=== PATIENT | female | born 1970 | race Caucasian/White ===

== ENCOUNTER 2024-07-13 07:49 | Inpatient (IN) | payer OTHER, SELFPAY ==
[2024-07-13] VITALS (21 sets, daily range): BP systolic 93–155; BP diastolic 61–98; PULSE 66–136; RESP 15–24; TEMP 35.8–37.1; O2SAT 94–100; BMI 22.4; BMI 22.2
--- NOTE | 2024-07-13 08:04 | EKG12_ITS ---
Test Reason : Blood Pressure : */* mmHG Vent. Rate : 107 BPM Atrial Rate : 107 BPM P-R Int : 122 ms QRS Dur : 100 ms QT Int : 340 ms P-R-T Axes : 55 55 -32 degrees QTcB Int : 453 ms Sinus tachycardia with occasional Premature ventricular complexes Inferior-posterior infarct , age undetermined Abnormal ECG Confirmed by ANGELA ESPINOZA, WILLIE ([id number]), editor managing director DANIEL TOVAR ([id number]) on 07/14/2024 8:14:43 AM Referred By: VARINDER Confirmed By: WILLIE MILLER MD
--- NOTE | 2024-07-13 08:04 | CT_ITS ---
STUDY: CT BRAIN WITHOUT CONTRAST REASON FOR EXAM: Female, 54 years old. New onset seizure RADIATION DOSAGE (If Supplied By Facility): CTDIvol = ( 47.06 ) mGy, DLP = ( 907.97 ) mGycm TECHNIQUE: Transaxial CT imaging of the brain was performed without administration of intravenous contrast material. Individualized dose optimization techniques were used for this CT. COMPARISON: No relevant priors. FINDINGS: Normal soft tissue structures. Normal calvarium. Normal size ventricles and extra-axial spaces for the patient''s age. Normal white matter tracts of the cerebral hemispheres. Normal basal ganglia and thalami. Normal brainstem. Normal cerebellum. There is no intracranial hemorrhage. There are no findings of an acute ischemic infarction. Normal visualized paranasal sinuses. CT/Brain/Head without Contrast IMPRESSION: Normal unenhanced CT scan of the brain. Electronically Signed: Lj North MD at 9:45 EST ,
--- NOTE | 2024-07-13 08:12 | EKG12_ITS ---
Test Reason : Blood Pressure : */* mmHG Vent. Rate : 113 BPM Atrial Rate : 113 BPM P-R Int : 126 ms QRS Dur : 98 ms QT Int : 306 ms P-R-T Axes : 52 55 -27 degrees QTcB Int : 419 ms Sinus tachycardia Inferior-posterior infarct , age undetermined ST & T wave abnormality, consider lateral ischemia Abnormal ECG When compared with ECG of 15-May-2010 06:01, Vent. rate has increased by 58 bpm Inferior-posterior infarct is now Present ST now depressed in Anterior leads T wave inversion more evident in Inferior leads T wave inversion now evident in Anterolateral leads Confirmed by MANPREET PLEITEZ ([id number]), slot editor CARLTON DUNN ([id number]) on 07/16/2024 1:46:37 PM Referred By: Confirmed By: MANPREET PLEITEZ
[2024-07-13 08:46] LABS: Bacteria 0 SEEN /hpf (None Seen); Mucous, Urine 0 SEEN /hpf (<or=2+); Red Blood Cells-Urine 0 SEEN /hpf (0-5); Squamous Epithelial Cells - UA 0 SEEN /hpf (5-10); White Blood Cells 0 SEEN /hpf (0-5)
[2024-07-13 08:53] LABS: Absolute Lymphocyte Count 0.64 X10^3/uL (0.83-4.51); Absolute Neutrophil Count 9.3 X10^3/uL (2.0-7.7); Basophil# 0.06 X10^3/uL; Basophil% 0.6 % (0-1); Eosinophil# 0.03 X10^3/uL; Eosinophils% 0.3 % (0-5); Hematocrit 39.2 % (37-47); Hemoglobin 13.4 g/dL (12.0-15.0); Lymphocyte # 0.64 X10^3/ul (0.83-4.51); Lymphocyte % 5.9 % (19-41); Mean Corp Hgb Conc 34.2 g/dL (32-36); Mean Corpuscular Hgb 31.6 pg (27.0-32.0); Mean Corpuscular Volume 92.5 fL (81-99); Mean Platelet Vol. 9.6 fl (6.2-12.0); Monocyte# 0.78 X10^3/uL; Monocyte% 7.2 % (0-10); NRBC Flagged by Analyzer 0 % (0-5); Neutrophil # 9.25 X10^3/uL (2.7-7.7); Neutrophil % 85.7 % (47-70); Platelet Count 193 K/mm3 (150-450); RBC Distribution Width CV 12.8 % (11.6-14.6); RBC Distribution Width SD 43.1 fl (35.1-43.9); Red Blood Count 4.24 M/mm3 (4.2-5.4); White Blood Count 10.8 K/mm3 (4.4-11.0)
[2024-07-13 09:03] LABS: Internal QC Validated? YES +Cl - CLEAR BKGD; Pregnancy, Urine Negative Negative
--- NOTE | 2024-07-13 09:06 | EX.ED.DYSGE1 ---
HPI History of Present Illness Chief Complaint: Seizure Detail of Chief Complaint: Witnessed seizure by ex [id number] Informant: patient and friend Onset/Context/Timing Onset: Today (Witnessed seizure, generalized tonic-clonic) and Yesterday (Took intentional overdose of muscle relaxant . Asked why she took the muscle relaxant and she responded I wanted to kill myself .) Context: Sudden Onset Timing: Intermittent Quality: Abdominal pain that is generalized Location: Generalized Current Severity: Mild Maximum Severity: Severe Worsened by: Vomiting Relieved by: Nothing Associated Symptoms Associated Symptoms: Nausea and vomiting Narrative Narrative: Patient is a 54-year-old woman. She admits she is depressed. She admits that she intentionally took a large quantity of muscle relaxant to kill yourself . She does not know the name of the medication. She does not know the strength of the medication or how many she took. She responded a lot . She lives with her ex [id number]. Ex [id number] was unaware that she was depressed or attempted to kill herself. Ex [id number] called squad because she had a generalized tonic-clonic seizure. She had nausea and vomiting prior to the generalized tonic-clonic seizure. Patient does endorse cough. Paramedics administered Narcan. She awoke after Narcan. She denies opiate use. She denies illicit drug use. Patient is stuttering. She has a tremor. She has difficulty answering questions because she cannot recall. She is confused and disoriented. This may be due to her being postictal. Prior similar symptoms: No Recent [facility] Medical History Migraine CAD (coronary artery disease) Anxiety and depression Health care maintenance Fibromyalgia Vision problems GERD (gastroesophageal reflux disease) Irritable bowel syndrome Recurrent infections High blood cholesterol Heart failure High blood pressure Hearing problem Heart disease Head ache Gastrointestinal problem Emotional problems Carpal tunnel syndrome History of blood transfusion Back pain Seasonal allergies Home Medications ?Medication ?Instructions ?Recorded ?Last Taken ?Type acyclovir 400 mg tablet 400 mg PO QDAY 06/14/24 Unknown History albuterol sulfate 90 mcg/actuation 2 puff inhalation Q6H PRN 06/14/24 Unknown History aerosol inhaler aspirin 81 mg tablet,delayed 81 mg PO QDAY 06/14/24 Unknown History release (Adult Aspirin Regimen) atorvastatin 40 mg tablet (Lipitor) 40 mg PO QDAY 06/14/24 Unknown History azelastino .Route 06/14/24 Unknown History biotin 5 mg capsule 5 mg PO QDAY 06/14/24 Unknown History cholecalciferol (vitamin D3) 25 25 mcg PO QDAY 06/14/24 Unknown History mcg (1,000 unit) capsule cyclobenzaprine 5 mg tablet 5 mg PO QHS 06/14/24 Unknown History diclofenac sodium 1 % topical gel 2 g topical ONCE 06/14/24 Unknown History duloxetine 30 mg capsule,delayed 30 mg PO BID 3 months #180 caps 06/14/24 Unknown Rx release fluticasone propionate 50 1 spray intranasal QDAY 06/14/24 Unknown History mcg/actuation nasal spray,suspension (Flonase Allergy Relief) ketoconazole 2 % topical foam 1 applic topical BID 06/14/24 Unknown History lysine 1,000 mg tablet 1,000 mg PO QDAY 06/14/24 Unknown History magnesium 200 mg tablet 400 mg PO BID 06/14/24 Unknown History metoprolol tartrate 25 mg tablet 25 mg PO QDAY 06/14/24 Unknown History montelukast 10 mg tablet 10 mg PO QDAY 06/14/24 Unknown History ticagrelor 90 mg tablet (Brilinta) 90 mg PO BID 06/14/24 Unknown History Allergy/AdvReac Type Severity Reaction Status Date / Time codeine Allergy Intermediate Vomiting Verified 07/13/24 07:59 Family History Father Angina at rest Myocardial infarction, Onset Age: 70 High cholesterol Mother History of blood transfusion Anxiety Hypertension Aunt Cancer breast Grandfather Myocardial infarction, Onset Age: 70 Sister Asthma Surgical History History of hysterectomy H/O wisdom tooth extraction S/P foot surgery Hx of tonsillectomy S/P appendectomy Social History household members: other details: ex in laws housing: house current occupational status: employed 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 Smoking Status: Former smoker Tobacco: How many years used: 26 alcohol intake: current alcohol intake frequency: a few times a month Alcohol type: beer substance use type: other details: CBD ,delta 8 what type of physical activity do you participate in: yoga frequency: 3-4 times per week duration: 15-30 minutes/day seatbelt use: always do you feel safe at home: Yes ROS ROS ED Constitutional Constitutional ED: Denies subjective or sweats Eyes Eyes: Reports blurry vision; Denies diplopia ENT ENT ED: Denies ear pain, rhinorrhea or sore throat Cardiovascular Cardiovascular: Reports palpitations and racing heartbeat; Denies chest pain, orthopnea or paroxysmal nocturnal dyspnea Respiratory/Chest Respiratory/Chest: Reports cough, dyspnea and dyspnea on exertion; Denies orthopnea or paroxysmal nocturnal dyspnea Gastrointestinal Gastrointestinal: Reports abdominal pain, nausea and vomiting Genitourinary Genitourinary ED: Denies dysuria, hematuria or urinary frequency Musculoskeletal Musculoskeletal: Denies arthralgias, myalgias or neck pain Integumentary Denies rash Neurologic Neurologic: Reports headache(s); Denies paresthesias or weakness Psychiatric Psychiatric: Reports anxiety, depression, suicidal ideation and suicidal thoughts Endocrine Endocrinology: Reports cold intolerance and heat intolerance Hematologic/Lymphatic Hematologic/Lymphatic: Reports systems reviewed and no addt'l complaints, except as documented Allergic/Immunologic Allergic/Immunologic ED: Denies mouth swelling or tongue swelling EXAM Physical Exam Const Vital Signs: 07/13/24 07:50 07/13/24 09:49 Temperature 98.2 F Temperature Source Oral Pulse Rate 136 H 66 Respiratory Rate 17 16 Blood Pressure 146/80 H 103/61 Blood Pressure Mean 102 75 Pulse Ox 95 96 Oxygen Delivery Method Room Air Room Air Positive well nourished and well developed Constitutional Narrative: Patient is tearful. She has a depressed mood and flat affect. General Appearance ED: well developed and pallor; Negative for NAD HEENT Reports TM's clear and dry mucous membranes Negative for trauma or tenderness Tympanic Membrane ED: Yes TM's clear Mouth ED: Yes dry mucous membranes Mouth: dry mucous membranes Eyes PERRL and EOMs intact bilaterally Eyes Narrative: Question of bilateral nystagmus with lateral gaze. Fast component appears to be going to the right. There is no vertical component. General Eye ED: Negative for pale conjunctiva or scleral icterus Neck no lymphadenopathy, supple and no JVD Chest Wall inspection of chest normal and palpation of chest normal Resp normal respiratory effort and clear to auscultation bilaterally Cardio regular rhythm, S1 normal heart sound, S2 normal heart sound and no murmurs; Negative for regular rate Rate: tachycardic GI normal to inspection, nondistended, normoactive bowel sounds, non-tender, non-distended and no masses; Negative for hepatosplenomegaly Back/Spine no CVA tenderness Neuro No oriented x3 and CN's II-XII intact bilaterally Sensorium / Orientation: orientation impaired; Negative for alert Psych Psych Narrative: Patient admits to suicidal ideation. Mood & Affect: depressed Skin no rashes or lesions noted, no wounds and skin turgor normal General Skin Exam: elasticity normal and pallor; Negative for jaundice MDM MDM MDM Narrative Medical decision making narrative: With history of intentional overdose of muscle relaxant and the fact that she has a dry mouth this may be due to Flexeril which does have anticholinergic effects and is known to cause tachycardia. And structure very similar to tricyclic antidepressant without the cardiac toxicity. Since she took these pills last evening there is no benefit administering activated charcoal. Because she had a seizure does complain of headache will obtain CT of the head to rule out any possible intracranial process. Suspect the seizure is due to her intentional overdose. Doubt this is due to a vagal response. Rover sheet was completed by me. Consult was placed to case management since she will require hospitalization to psychiatric [facility] once medically cleared. Since the medications unknown and she had a seizure she will require medical admission and placement after observation for 12 to 24 hours. Lab Data Attestation: I reviewed the patient's lab results. Lab results narrative: CBC is unremarkable. Urine is negative. Electrolyte panel reveals a CO2 of 20 with an anion gap of 11. Potassium is 3.1. Creatinine is elevated 1.72. This may be due to the fact that she is on meloxicam. Patient's lactate is elevated 3.9. This would be due to her having a generalized tonic-clonic seizure. Talk screen was positive for phencyclidine and cannabinoids. Of note patient admits to taking meloxicam last evening and tramadol. This would explain why she had a rapid response to the Narcan. There was a third drug which she initially states is a muscle relaxant now she is uncertain. Labs: Laboratory Results - last 24 hr 07/13/24 08:34 WBC 10.8 RBC 4.24 Hgb 13.4 Hct 39.2 MCV 92.5 MCH 31.6 MCHC 34.2 RDW Std Deviation 43.1 RDW Coeff of Marisa 12.8 Plt Count 193 MPV 9.6 Immature Gran % (Auto) 0.300 Neut % (Auto) 85.7 H Lymph % (Auto) 5.9 L [place] % (Auto) 7.2 Eos % (Auto) 0.3 Baso % (Auto) 0.6 Absolute Neuts (auto) 9.3 H Absolute Lymphs (auto) 0.64 L Nucleated RBC % 0 PT 13.2 INR 1.0 APTT 21.9 L Sodium 141 Potassium 3.3 L Chloride 108 H Carbon Dioxide 22.0 Anion Gap 11 BUN 16 Creatinine 1.72 H Estim Creat Clear Calc 33.65 Est GFR (MDRD) Af Amer 40 L Est GFR (MDRD) Non-Af 33 L BUN/Creatinine Ratio 9.3 L Glucose 138 H Lactic Acid 3.9 H* Calcium 9.4 Total Bilirubin 0.60 AST 29 ALT 20 Alkaline Phosphatase 110 Total Protein 7.5 Albumin 4.0 Globulin 3.5 Albumin/Globulin Ratio 1.1 Lipase 37 Urine Color Yellow Urine Clarity Clear Urine pH 6.0 Ur Specific [place] 1.025 Urine Protein 15 H Urine Glucose (UA) Normal Urine Ketones Negative Urine Occult Blood Negative Urine Nitrite Negative Urine Bilirubin Negative Urine Urobilinogen Normal Ur Leukocyte Esterase Negative Urine RBC 0 SEEN Urine WBC 0 SEEN Ur Squamous Epith Cells 0 SEEN Urine Bacteria 0 SEEN Urine Mucus 0 SEEN Urine Test Negative Urine Opiates Screen NEGATIVE Urine Methadone Screen NEGATIVE Ur Barbiturates Screen NEGATIVE Ur Phencyclidine Scrn POSITIVE H Ur Amphetamines Screen NEGATIVE MDMA (Ecstasy) Screen NEGATIVE U Benzodiazepines Scrn NEGATIVE Urine Cocaine Screen NEGATIVE U Cannabinoids Screen POSITIVE H Ur Drug Screen Comment Ethyl Alcohol < 3.0 Radiography Diagnostic Testing: Clinical Impression(s) from Imaging Studies Brain CT 07/13/24 08:04 IMPRESSION: Normal unenhanced CT scan of the brain. Electronically Signed: Lj North MD at 9:45 EST , Rhythm Strip Rhythm Strip: Sinus Tach Rate: 128 Ectopy: None EKG Initial EKG: Attestation: I personally reviewed and interpreted this EKG as follows: Interpretation: Sinus Tachycardia (Initial EKG was discarded because there was artifact from her tremors. Repeat that was obtained at 0851 reveals sinus tachycardia with occasional premature beats. NH interval is 122 ms. Cures duration 100 ms. QT duration 340 ms. [place] is normal. Patient has nonspecific ST-T wave changes inferio) Management Discussion w/another healthcare provider: Hospitalist and fountain worker/Case management (Regarding intentional overdose and psychiatric placement after patient has been observed and cleared medically) Treatment and Re-Evaluation :: Rover slip was completed. Comments:: As of 1044 patient's blood pressure is 86/61. 1 L of normal saline was ordered. Case discussed with hospitalist. She will be admitted to the intensive care unit. Critical Care Time Critical Care Time: Yes Critical care time (excluding procedures): 30-74 minutes (32), Including time spent: (History, physical, documentation, obtaining history from ex [id number], review of prior records, independent rotation laboratory results), Discussing w/Patient &/or Family/Sales Enablement Analyst, Discussing w/Consultants and Arranging Admission or Transfer Discharge Plan Dx/Rx/DC Orders Clinical Impression: Intentional overdose, Anxiety and depression, William coma scale score 3-8, in the field [emt or ambulance], Intentional opiate overdose, Generalized tonic-clonic seizure, Acidosis, lactic, Elevated serum creatinine, Sinus tachycardia seen on band cutter, Abnormal ECG, Phencyclidine (PCP) intoxication, Acute hypotension Disposition Disposition: Acute Care [facility]
[2024-07-13 09:08] LABS: ALB/GLOB Ratio 1.1 RATIO (0.9-2.4); AST(SGOT) 29 U/L (15-37); Alanine Aminotransfer ALT/SGPT 20 U/L (13-56); Alkaline Phosphatase 110 U/L (45-117); Anion Gap 11 (5-15); BUN 16 mg/dL (7-18); BUN/Creat Ratio 9.3 RATIO (10-20); Calcium,Total 9.4 mg/dL (8.5-10.1); Chloride 108 mmol/L (98-107); Creatinine, Serum 1.72 mg/dL (0.55-1.02); EST Glomerular Filtration Rate 33 mL/min (>60); Est Glom Filt Rate - Afr Amer 40 mL/min (>60); Estimated Creatinine Clearance 33.65 ml/min; Globulin 3.5 g/dL (2.2-4.2); Glucose 138 mg/dL (74-106); Lipase 37 U/L (13-75); Potassium 3.3 mmol/L (3.5-5.1); Protein, Total 7.5 g/dL (6.4-8.2); Sodium Level 141 mmol/L (136-145)
[2024-07-13 09:12] LABS: Alcohol, Blood (Medical)-Serum < 3.0 mg/dL
[2024-07-13 09:13] LABS: Color, Urine Yellow (Yellow); Glucose, Dipstick Normal (Normal); Ketone-Dipstick Negative (Negative); Leukocyte Esterase-Dipstick Negative /ul (Negative); Nitrite-Dipstick Negative (Negative); Occult Blood-Urine Negative /ul (Negative); Protein-Dipstick 15 mg/dl (Negative); Specific Gravity, Urine 1.025 (1.002-1.030); Urine Bilirubin Dipstick Negative (Negative); Urine Clarity Clear (Clear); Urine Urobilinogen Normal (Normal)
[2024-07-13 09:18] LABS: Partial Thromboplast Time 21.9 Seconds (24.1-36.2); Prothrombin Time (Protime)PT. 13.2 SECONDS (11.7-14.9)
[2024-07-13 09:21] LABS: Lactic Acid 3.9 mmol/L (0.4-1.9)
[2024-07-13 09:35] LABS: Amphetamine Urine VISTA NEGATIVE (<1000 ng/mL); Barbiturate Urine VISTA NEGATIVE (< 200 ng/mL); Benzodiazepine Urine VISTA NEGATIVE (< 200 ng/mL); Cocaine Urine VISTA NEGATIVE (< 300 ng/mL); Ecstacy Urine VISTA NEGATIVE (< 500 ng/mL); Methadone Urine VISTA NEGATIVE (< 300 ng/mL); PCP Urine VISTA POSITIVE (< 25 ng/mL); THC Urine VISTA POSITIVE (< 50 ng/mL); Vista UDS pH Range 4
[2024-07-13] MEDS: 0.9% Normal Saline (1000mL) 1,000 ML 1000 ML IV (10:57)
--- NOTE | 2024-07-13 11:36 | HP.PCM.HOS_ITS ---
HPI - General General Date of Admission: 07/13/24 Date of Service: 07/13/24 Chief Complaint: overdose. HPI Narrative HOLDEN CHILDERS, is a 54 F who presents after being found with a seiuzre x2 at home. Patient had intentionally took a large quantity of pregabalin, meloxicam, and tramadol in an attempt to kill herself. Pt was confused following the seizures, and mental status has since improved. No h/o seizure. She became hypotensive in the ED and received IVF. Pt was pink-slipped in the ED and the hospitalist service was contacted for admission. [facility] Medical History Migraine CAD (coronary artery disease) Anxiety and depression Health care maintenance Fibromyalgia Vision problems GERD (gastroesophageal reflux disease) Irritable bowel syndrome Recurrent infections High blood cholesterol Heart failure High blood pressure Hearing problem Heart disease Head ache Gastrointestinal problem Emotional problems Carpal tunnel syndrome History of blood transfusion Back pain Seasonal allergies Home Medications ?Medication ?Instructions ?Recorded ?Last Taken ?Type acyclovir 400 mg tablet 400 mg PO QDAY 06/14/24 Unknown History albuterol sulfate 90 mcg/actuation 2 puff inhalation Q6H PRN 06/14/24 Unknown History aerosol inhaler aspirin 81 mg tablet,delayed 81 mg PO QDAY 06/14/24 Unknown History release (Adult Aspirin Regimen) atorvastatin 40 mg tablet (Lipitor) 40 mg PO QDAY 06/14/24 Unknown History azelastino .Route 06/14/24 Unknown History biotin 5 mg capsule 5 mg PO QDAY 06/14/24 Unknown History cholecalciferol (vitamin D3) 25 25 mcg PO QDAY 06/14/24 Unknown History mcg (1,000 unit) capsule cyclobenzaprine 5 mg tablet 5 mg PO QHS 06/14/24 Unknown History diclofenac sodium 1 % topical gel 2 g topical ONCE 06/14/24 Unknown History duloxetine 30 mg capsule,delayed 30 mg PO BID 3 months #180 caps 06/14/24 Unknown Rx release fluticasone propionate 50 1 spray intranasal QDAY 06/14/24 Unknown History mcg/actuation nasal spray,suspension (Flonase Allergy Relief) ketoconazole 2 % topical foam 1 applic topical BID 06/14/24 Unknown History lysine 1,000 mg tablet 1,000 mg PO QDAY 06/14/24 Unknown History magnesium 200 mg tablet 400 mg PO BID 06/14/24 Unknown History metoprolol tartrate 25 mg tablet 25 mg PO QDAY 06/14/24 Unknown History montelukast 10 mg tablet 10 mg PO QDAY 06/14/24 Unknown History ticagrelor 90 mg tablet (Brilinta) 90 mg PO BID 06/14/24 Unknown History Allergy/AdvReac Type Severity Reaction Status Date / Time codeine Allergy Intermediate Vomiting Verified 07/13/24 07:59 Family History Father Angina at rest Myocardial infarction, Onset Age: 70 High cholesterol Mother History of blood transfusion Anxiety Hypertension Aunt Cancer breast Grandfather Myocardial infarction, Onset Age: 70 Sister Asthma Surgical History History of hysterectomy H/O wisdom tooth extraction S/P foot surgery Hx of tonsillectomy S/P appendectomy Social History household members: other details: ex in laws housing: house current occupational status: employed 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 Blurry vision. No headache. All review of systems were negative except as mentioned above in the history of present illness and the other review of systems. Vital Signs Vital Signs Vital Signs: 07/13/24 07:50 07/13/24 09:49 07/13/24 11:00 Temperature 36.8 C Temperature Source Oral Pulse Rate 136 H 66 99 Respiratory Rate 17 16 24 H Blood Pressure 146/80 H 103/61 155/90 H Blood Pressure Mean 102 75 111 Pulse Ox 95 96 100 Oxygen Delivery Method Room Air Room Air Room Air 07/13/24 11:20 Temperature 36.7 C Temperature Source Pulse Rate 99 Respiratory Rate 24 H Blood Pressure 155/90 H Blood Pressure Mean 111 Pulse Ox 100 Oxygen Delivery Method Weight Weight: 61.1 kg Body Mass Index (BMI) 22.4 Physical Exam Const alert and no apparent distress HEENT normocephalic and head/scalp atraumatic; Negative for moist oral mucous membranes HEENT Narrative: MMdry. Eyes PERRL and EOMs intact bilaterally Eyes Narrative: bilateral lateral nystagmus. Neck no lymphadenopathy Neck Narrative: no thyromegaly. Resp normal respiratory effort, no retractions, no use of accessory muscles and clear to auscultation bilaterally Cardio regular rate, regular rhythm, S1 normal heart sound and S2 normal heart sound GI normal to inspection, nondistended, normoactive bowel sounds, soft to palpation, non-tender, non-distended and hepatosplenomegaly Extremity normal to inspection, full ROM and no clubbing, cyanosis or edema Neuro oriented x3, CN's II-XII intact bilaterally and moves all extremities Neuro Narrative: no clonus. Sensorium / Orientation: awake and alert Results Lab / Micro Data Attestation: I reviewed the patient's lab results. 07/13/24 08:34 07/13/24 08:34 Labs: Laboratory Results - last 24 hr 07/13/24 08:34: WBC 10.8, RBC 4.24, Hgb 13.4, Hct 39.2, MCV 92.5, MCH 31.6, MCHC 34.2, RDW Std Deviation 43.1, RDW Coeff of Marisa 12.8, Plt Count 193, MPV 9.6, Immature Gran % (Auto) 0.300, Neut % (Auto) 85.7 H, Lymph % (Auto) 5.9 L, [place] % (Auto) 7.2, Eos % (Auto) 0.3, Baso % (Auto) 0.6, Absolute Neuts (auto) 9.3 H, A bsolute Lymphs (auto) 0.64 L, Nucleated RBC % 0, PT 13.2, INR 1.0, APTT 21.9 L, Sodium 141, Potassium 3.3 L, Chloride 108 H, Carbon Dioxide 22.0, Anion Gap 11, BUN 16, Creatinine 1.72 H, Estim Creat Clear Calc 33.65, Est GFR (MDRD) Af Amer 40 L, Est GFR (MDRD) Non-Af 33 L, BUN/Creatinine Ratio 9.3 L, Glucose 138 H, L actic Acid 3.9 H*, Calcium 9.4, Total Bilirubin 0.60, AST 29, ALT 20, Alkaline Phosphatase 110, Total Protein 7.5, Albumin 4.0, Globulin 3.5, Albumin/Globulin Ratio 1.1, Lipase 37, Urine Color Yellow, Urine Clarity Clear, Urine pH 6.0, Ur Specific [place] 1.025, Urine Protein 15 H, Urine Glucose (UA) Normal, Urine Ketones Negative, Urine Occult Blood Negative, Urine Nitrite Negative, Urine Bilirubin Negative, Urine Urobilinogen Normal, Ur Leukocyte Esterase Negative, Urine RBC 0 SEEN, Urine WBC 0 SEEN, Ur Squamous Epith Cells 0 SEEN, Urine Bacteria 0 SEEN, Urine Mucus 0 SEEN, Urine Test Negative, Urine Opiates Screen NEGATIVE, Urine Methadone Screen NEGATIVE, Ur Barbiturates Screen NEGATIVE, Ur Phencyclidine Scrn POSITIVE H, Ur Amphetamines Screen NEGATIVE, MDMA (Ecstasy) Screen NEGATIVE, U Benzodiazepines Scrn NEGATIVE, Urine Cocaine Screen NEGATIVE, U Cannabinoids Screen POSITIVE H, Ur Drug Screen Comment , Ethyl Alcohol < 3.0 Rhythm Strip Rhythm Strip: Sinus Tach Rate: 128 Ectopy: None Imaging Radiology Impression Brain CT 07/13/24 08:04 IMPRESSION: Normal unenhanced CT scan of the brain. Electronically Signed: Lj North MD at 9:45 EST , Assessment & Plan Assessment/Plan (1) Generalized tonic-clonic seizure: PLAN: likely 2/2 to tramadol overdose. No prior seizure history. Place seizure precautions. Pt likely will not require seizure restrictions after discharge (2) Intentional overdose: PLAN: Suicide attempt. Pt took pregabalin, tramadol and meloxicam Pt has already been pink-slipped by Dr. Rea. When patient is medically ready, she will need Crisis consult to psychiatric unit placement. Sitter at bedside. (3) Acute hypotension: PLAN: Likely iatrogenic.Will give IVF. Monitor PLAN: Plan ROBI v CKD * no prior labs. * IVF and monitor Abnormal drug screen * PCP likely falsly positive from tramadol Chronic conditions * Fibromomyalgia: no further pregabalin nor tramadol * CAD: s/p PCI. continue ticagrelor, ASA, statin, metoprolol tartrate. VTE prophylaxis: enoxaparin DW patient's MIL at bedside. Charges/Coding Visit Charges Inpatient E&M: 58873 Init Hosp L3
--- NOTE | 2024-07-13 12:13 | ED.RN ---
Per son pt has been voicing suicidal ideations for past six months since heart attack.
[2024-07-13 12:43] LABS: Reflex Lactate? Y
[2024-07-13] MEDS: 0.9% Normal Saline (1000mL) 1,000 ML 150 ML IV (13:20)
[2024-07-13] MEDS: Ondansetron 4 MG/2 ML Vial IV (13:25)
[2024-07-13] MEDS: Potassium Chloride Oral Tablet 20 MEQ 40 MEQ PO (14:15)
--- NOTE | 2024-07-13 14:34 | CM.ED ---
Social work Reason for referral: mental health Referral source: Dr. Rea SW received consult request for patient due to mental health concerns. Per triage note, patient presented to ED due to a seizure and patient reportedly had no prior seizure activity. Dr. Rea?s consult stated, ?patient overdose and attempt to kill herself. Patient sees this morning. Will need medical clearance first. Patient needs hospitalized.? Prior to SW being available to meet with and assess patient, patient required admission to the ICU. Plan: handoff to acute RN CM/SW team. Due to intentional overdose reported, patient will need crisis/SW assessment for inpatient hospitalization pending medical clearance. Ree Gurrola, CULINARY CHEF, BOW TACKER
--- NOTE | 2024-07-13 15:55 | CHAPLAIN ---
Type of Pastoral Visit _x__ Initial Visit ___ Follow-up Visit ___ On-call Visit ___ General Patient Visit ___ Spiritual Assessment ___ Family Conference ___ Bereavement ___ Rapid Response ___ Code Blue ___ Other (describe below) Pastoral Care Referral From _x__ Patient ___ Family ___ Nurse ___ Physician ___ Workers Compensation Claims Supervisor ___ Life Science Research Assistant ___ Other (describe below) Sacrament/Intervention _x__ Active listening ___ Anointing ___ Scientologist ___ Bereavement ___ Communion _x__ Rosa exploration ___ _x__ Life review _x__ Prayer ___ Reconciliation ___ Sacrament of Sick _x__ Supportive presence ___ Wedding ___ Other (describe below) Pastoral Comments patient is open to talking about her feelings and situation; sitter is in the room and remains during the visit; pt admits to wanting to due to being very overwhelmed with her life including having to live with an ex [id number], having many bills that she cannot pay, not liking her job, rejection by two life long friends, etc.; pt states that she has lost rosa in God but had previously been active in a roman catholic and was baptized; pt states that God has put too much on my life and my life has always been hard; this permaculture designer gives time for pt to talk and be expressive, offers perspective on bad times in this life, and reasons to see some good in her life too; pt welcomes prayer for support; pt would welcome a second visit as well;
[2024-07-13] MEDS: Metoprolol(XL)Succ 25 MG Tablet PO (21:10)
[2024-07-13] MEDS: TICAGRELOR 90 MG TABLET PO (21:11)
[2024-07-14] VITALS (13 sets, daily range): BP systolic 92–116; BP diastolic 62–83; PULSE 85–100; RESP 15–24; TEMP 36.4–37; O2SAT 93–98; BMI 22.1
[2024-07-14 04:34] LABS: Absolute Lymphocyte Count 1.15 X10^3/uL (0.83-4.51); Absolute Neutrophil Count 8.3 X10^3/uL (2.0-7.7); Basophil# 0.05 X10^3/uL; Basophil% 0.5 % (0-1); Eosinophil# 0.23 X10^3/uL; Eosinophils% 2.2 % (0-5); Hematocrit 30.8 % (37-47); Hemoglobin 10.8 g/dL (12.0-15.0); Lymphocyte # 1.15 X10^3/ul (0.83-4.51); Lymphocyte % 11.2 % (19-41); Mean Corp Hgb Conc 35.1 g/dL (32-36); Mean Corpuscular Hgb 32.1 pg (27.0-32.0); Mean Corpuscular Volume 91.7 fL (81-99); Mean Platelet Vol. 9.3 fl (6.2-12.0); Monocyte# 0.54 X10^3/uL; Monocyte% 5.3 % (0-10); NRBC Flagged by Analyzer 0 % (0-5); Neutrophil # 8.26 X10^3/uL (2.7-7.7); Neutrophil % 80.5 % (47-70); Platelet Count 155 K/mm3 (150-450); RBC Distribution Width CV 12.5 % (11.6-14.6); RBC Distribution Width SD 41.9 fl (35.1-43.9); Red Blood Count 3.36 M/mm3 (4.2-5.4); White Blood Count 10.3 K/mm3 (4.4-11.0)
[2024-07-14 04:56] LABS: ALB/GLOB Ratio 1.1 RATIO (0.9-2.4); AST(SGOT) 64 U/L (15-37); Alanine Aminotransfer ALT/SGPT 33 U/L (13-56); Albumin, Serum 3.3 g/dL (3.2-5.0); Alkaline Phosphatase 87 U/L (45-117); Anion Gap 3 (5-15); BUN 16 mg/dL (7-18); BUN/Creat Ratio 10.1 RATIO (10-20); Calcium,Total 8.8 mg/dL (8.5-10.1); Chloride 107 mmol/L (98-107); Creatinine, Serum 1.59 mg/dL (0.55-1.02); EST Glomerular Filtration Rate 36 mL/min (>60); Est Glom Filt Rate - Afr Amer 43 mL/min (>60); Globulin 2.9 g/dL (2.2-4.2); Glucose 115 mg/dL (74-106); Magnesium 2.3 mg/dL (1.6-2.6); Potassium 4.1 mmol/L (3.5-5.1); Protein, Total 6.2 g/dL (6.4-8.2); Sodium Level 135 mmol/L (136-145)
--- NOTE | 2024-07-14 06:56 | PN.HOSP_ITS ---
Reason for Visit Reason for Visit: Diagnoses Other generalized epilepsy and epileptic syndromes, not intractable, without status epilepticus (07/13/24) Hypotension, unspecified (07/13/24) Poisoning by unspecified drugs, medicaments and biological substances, intentional self-harm, initial encounter (07/13/24) Subjective Subjective Pulling out IVs. Hallucinations with thinking toys are in the room. Objective Data Objective Data Vital Signs: Vital Signs Temp Pulse Resp BP Pulse Ox O2 Del Method O2 Flow Rate 36.9 C 89 20 H 108/83 H 98 Nasal Cannula 2 07/14/24 04:00 07/14/24 06:00 07/14/24 06:00 07/14/24 06:00 07/14/24 06:00 07/14/24 06:00 07/14/24 06:00 Oxygen Flow Rate (L/min) 2 Oxygen Delivery Method Nasal Cannula Weight: 60.5 kg Body Mass Index (BMI) 22.1 Intake & Output: Intake and Output for Last 24 Hours 07/12/24 07/13/24 07/14/24 23:59 23:59 23:59 Intake Total 1999 / 1999 Output Total 200 / 200 250 / 250 Balance 1800 / 1800 -250 / -250 Lab / Micro Data 07/14/24 04:25 07/14/24 04:25 Labs: Laboratory Results - last 24 hr 07/13/24 08:34: WBC 10.8, RBC 4.24, Hgb 13.4, Hct 39.2, MCV 92.5, MCH 31.6, MCHC 34.2, RDW Std Deviation 43.1, RDW Coeff of Marisa 12.8, Plt Count 193, MPV 9.6, Immature Gran % (Auto) 0.300, Neut % (Auto) 85.7 H, Lymph % (Auto) 5.9 L, [place] % (Auto) 7.2, Eos % (Auto) 0.3, Baso % (Auto) 0.6, Absolute Neuts (auto) 9.3 H, A bsolute Lymphs (auto) 0.64 L, Nucleated RBC % 0, PT 13.2, INR 1.0, APTT 21.9 L, Sodium 141, Potassium 3.3 L, Chloride 108 H, Carbon Dioxide 22.0, Anion Gap 11, BUN 16, Creatinine 1.72 H, Estim Creat Clear Calc 33.65, Est GFR (MDRD) Af Amer 40 L, Est GFR (MDRD) Non-Af 33 L, BUN/Creatinine Ratio 9.3 L, Glucose 138 H, L actic Acid 3.9 H*, Calcium 9.4, Total Bilirubin 0.60, AST 29, ALT 20, Alkaline Phosphatase 110, Total Protein 7.5, Albumin 4.0, Globulin 3.5, Albumin/Globulin Ratio 1.1, Lipase 37, Urine Color Yellow, Urine Clarity Clear, Urine pH 6.0, Ur Specific Stuart 1.025, Urine Protein 15 H, Urine Glucose (UA) Normal, Urine Ketones Negative, Urine Occult Blood Negative, Urine Nitrite Negative, Urine Bilirubin Negative, Urine Urobilinogen Normal, Ur Leukocyte Esterase Negative, Urine RBC 0 SEEN, Urine WBC 0 SEEN, Ur Squamous Epith Cells 0 SEEN, Urine Bacteria 0 SEEN, Urine Mucus 0 SEEN, Urine Test Negative, Urine Opiates Screen NEGATIVE, Urine Methadone Screen NEGATIVE, Ur Barbiturates Screen NEGATIVE, Ur Phencyclidine Scrn POSITIVE H, Ur Amphetamines Screen NEGATIVE, MDMA (Ecstasy) Screen NEGATIVE, U Benzodiazepines Scrn NEGATIVE, Urine Cocaine Screen NEGATIVE, U Cannabinoids Screen POSITIVE H, Ur Drug Screen Comment , Ethyl Alcohol < 3.0 07/14/24 04:25: WBC 10.3, RBC 3.36 L, Hgb 10.8 L, Hct 30.8 L, MCV 91.7, MCH 32.1 H, MCHC 35.1, RDW Std Deviation 41.9, RDW Coeff of Marisa 12.5, Plt Count 155, MPV 9.3, Immature Gran % (Auto) 0.300, Neut % (Auto) 80.5 H, Lymph % (Auto) 11.2 L, [place] % (Auto) 5.3, Eos % (Auto) 2.2, Baso % (Auto) 0.5, Absolute Neuts (auto) 8.3 H, Absolute Lymphs (auto) 1.15, Nucleated RBC % 0, Sodium 135 L, Potassium 4.1, Chloride 107, Carbon Dioxide 25.0, Anion Gap 3 L, BUN 16, Creatinine 1.59 H , Estim Creat Clear Calc 36.40, Est GFR (MDRD) Af Amer 43 L, Est GFR (MDRD) Non- Af 36 L, BUN/Creatinine Ratio 10.1, Glucose 115 H, Calcium 8.8, Magnesium 2.3, Total Bilirubin 0.60, AST 64 H, ALT 33, Alkaline Phosphatase 87, Total Protein 6.2 L, Albumin 3.3, Globulin 2.9, Albumin/Globulin Ratio 1.1 Radiography Diagnostic Testing: Radiology Impression Brain CT 07/13/24 08:04 IMPRESSION: Normal unenhanced CT scan of the brain. Electronically Signed: Lj North MD at 9:45 EST , Rhythm Strip Rhythm Strip: Sinus Tach Rate: 128 Ectopy: None Physical Exam Const alert and no apparent distress HEENT head/scalp atraumatic and moist oral mucous membranes Resp normal respiratory effort, no retractions, no use of accessory muscles and clear to auscultation bilaterally Cardio regular rate, regular rhythm, S1 normal heart sound and S2 normal heart sound GI normal to inspection, nondistended, normoactive bowel sounds, soft to palpation, non-tender and non-distended Extremity normal to inspection, full ROM and no clubbing, cyanosis or edema Neuro Sensorium / Orientation: awake and alert Assessment & Plan Assessment/Plan (1) Generalized tonic-clonic seizure: PLAN: likely 2/2 to tramadol overdose. No prior seizure history. Place seizure precautions. Pt likely will not require seizure restrictions after discharge No further seizures (2) Intentional overdose: PLAN: Suicide attempt. Pt took pregabalin, tramadol and meloxicam Pt has already been pink-slipped by Dr. Rea. When patient is medically ready, she will need Crisis consult to psychiatric unit placement. Sitter at bedside. Per nursing in the ICU, pt was unremorsefull about the attempt and upset it did not succeed. Continue suicide precautions. No medically stable for Crisis evaluation yet. Hopefully tomorrow. (3) Acute hypotension: PLAN: Resolved. Likely iatrogenic.Will give IVF. Monitor (4) Encephalopathy: QUALIFIERS: Encephalopathy type: toxic Toxic encephalopathy cause: unspecified toxin Qualified Code(s): G92.9 - Unspecified toxic encephalopathy PLAN: toxic encephalopathy 2/2 intentional ingestion of multiple large quantities of medicatoins Pt has pulled out several IVs, so will avoid further attmepts and encourage ongoing oral intake. PLAN: Plan ROBI v CKD * no prior labs. * IVF and monitor Abnormal drug screen * PCP likely falsly positive from tramadol Chronic conditions * Fibromomyalgia: no further pregabalin nor tramadol * CAD: s/p PCI. continue ticagrelor, ASA, statin, metoprolol tartrate. VTE prophylaxis: enoxaparin Transfer to [facility]. Charges/Coding Visit Charges Inpatient E&M: 16286 Subs Hosp L2
[2024-07-14] MEDS: Enoxaparin 40 MG/0.4 ML Syringe SC (07:43)
[2024-07-14] MEDS: Aspirin E.C. 81 MG Tablet PO (07:44)
[2024-07-14] MEDS: TICAGRELOR 90 MG TABLET PO ×2 (07:44→19:54)
[2024-07-14] MEDS: Metoprolol(XL)Succ 25 MG Tablet PO ×2 (07:44→19:53)
--- NOTE | 2024-07-14 15:32 | CHAPLAIN ---
Type of Pastoral Visit ___ Initial Visit _x__ Follow-up Visit ___ On-call Visit ___ General Patient Visit ___ Spiritual Assessment ___ Family Conference ___ Bereavement ___ Rapid Response ___ Code Blue ___ Other (describe below) Pastoral Care Referral From _x__ Patient ___ Family ___ Nurse ___ Physician ___ Children'S Librarian ___ Paving Plant Operator ___ Other (describe below) Sacrament/Intervention _x__ Active listening ___ Anointing ___ Rastafarian ___ Bereavement ___ Communion ___ Rosa exploration ___ ___ Life review _x__ Prayer ___ Reconciliation ___ Sacrament of Sick _x__ Supportive presence ___ Wedding ___ Other (describe below) Pastoral Comments follow up visit to this patient who requested the same; today she is more energetic in her speech and demeanor; pt is smiling some; son and [id number] are in the room with the patient and showing support; sitter is also in the room; pt says that while her throat hurts, she is thinking better and is accepting of whatever it is they want me to do; offer of prayer is welcomed by the patient and family
--- NOTE | 2024-07-14 15:58 | CASEMGMT ---
Social Work- Pt continues to hallucinate and be oriented only to self. KRYS printed clinicals to send when pt is medically stable for crisis evaluation and placed on pt chart. KRYS collaborated with bedside RN. traffic engineering director alerted KRYS that pt ex mother in law, that pt lives with, had questions on legal decision making hierarchy and plan of care. KRYS met with pt m-i-l and pt to discuss that decision-making ability would legally go to pt son since pt is not . Pt [id number] reports pt son would be agreeable to that. She reports that pt has lived with her for awhile as pt attempts to gain financial ground in paying off bills from an open heart surgery, dental work, and other items. Pt is reported to have anxiety and depression as well as OCD. Pt reports she has not had counseling since 2008. Pt reports no other suicide attempts; m-i-l agrees. Pt m-i-l reports that pt has a sister and brother; pt is only in intermittent contact with sister. Pt mom is in a [place] and is unaware of pt suicide attempt. Pt reports that she feels she is doing well and not miserable. Pt was observed to have hyper psychomotor agitation, constantly staying busy with hands and repositioning. Pt was able to interject moments of lucidity, then would express flight of ideas and speak from loosely connected thought pattern. Pt maintained poor eye contact and expressed poor insight, however, presented as pleasant and cooperative in demeanor. Plan: Crisis eval, when medically stable NAUN Perez
[2024-07-14] MEDS: Atorvastatin Calcium 40 MG Tablet PO (19:53)
[2024-07-15 02:00] VITALS: BP 129/72; PULSE 94; RESP 19; TEMP 36.6; O2SAT 91
[2024-07-15 05:28] VITALS: BMI 22.0
[2024-07-15 06:00] VITALS: BMI 21.9
--- NOTE | 2024-07-15 07:06 | PN.HOSP_ITS ---
Reason for Visit Reason for Visit: Diagnoses Other generalized epilepsy and epileptic syndromes, not intractable, without status epilepticus (07/13/24) Unspecified toxic encephalopathy (07/13/24) Hypotension, unspecified (07/13/24) Poisoning by unspecified drugs, medicaments and biological substances, intentional self-harm, initial encounter (07/13/24) Subjective Subjective Still confused, but less so today. No further hallucinations. Objective Data Objective Data Vital Signs: Vital Signs Temp Pulse Resp BP Pulse Ox O2 Del Method O2 Flow Rate 36.6 C 94 19 H 129/72 H 91 Room Air 2 07/15/24 02:00 07/15/24 02:00 07/15/24 02:00 07/15/24 02:00 07/15/24 02:00 07/15/24 02:00 07/14/24 20:00 Oxygen Flow Rate (L/min) 2 Oxygen Delivery Method Room Air Weight: 59.9 kg Body Mass Index (BMI) 21.9 Intake & Output: Intake and Output for Last 24 Hours 07/13/24 07/14/24 07/15/24 23:59 23:59 23:59 Intake Total 1999 / 1999 1220 / 1340 120 / 120 Output Total 200 / 200 250 / 250 700 / 700 Balance 1800 / 1800 970 / 1090 -580 / -580 Lab / Micro Data 07/14/24 04:25 07/14/24 04:25 Rhythm Strip Rhythm Strip: Sinus Tach Rate: 128 Ectopy: None Physical Exam Const alert and no apparent distress Constitutional Narrative: up at the side of the bed discussing with family. HEENT head/scalp atraumatic and moist oral mucous membranes Assessment & Plan Assessment/Plan (1) Generalized tonic-clonic seizure: PLAN: likely 2/2 to tramadol overdose. No prior seizure history. Place seizure precautions. Pt likely will not require seizure restrictions after discharge No further seizures (2) Intentional overdose: PLAN: Suicide attempt. Pt took pregabalin, tramadol and meloxicam Pt has already been pink-slipped by Dr. Rea. When patient is medically ready, she will need Crisis consult to psychiatric unit placement. Sitter at bedside. Per nursing in the ICU, pt was unremorsefull about the attempt and upset it did not succeed. Continue suicide precautions. Appropriate for Crisis evaluation (3) Acute hypotension: PLAN: Resolved. Likely iatrogenic.Will give IVF. Monitor (4) Encephalopathy: QUALIFIERS: Encephalopathy type: toxic Toxic encephalopathy cause: unspecified toxin Qualified Code(s): G92.9 - Unspecified toxic encephalopathy PLAN: Improving toxic encephalopathy 2/2 intentional ingestion of multiple large quantities of medicatoins Pt has pulled out several IVs, so will avoid further attmepts and encourage ongoing oral intake. PLAN: Plan ROBI v CKD * no prior labs. * IVF and monitor Abnormal drug screen * PCP likely falsly positive from tramadol Chronic conditions * Fibromomyalgia: no further pregabalin nor tramadol * CAD: s/p PCI. continue ticagrelor, ASA, statin, metoprolol tartrate. VTE prophylaxis: enoxaparin DW pt's [id number] at bedside. Charges/Coding Visit Charges Inpatient E&M: 00912 Subs Hosp L1
[2024-07-15 08:00] VITALS: BP 119/75; PULSE 81; RESP 18; TEMP 37.2; O2SAT 94
[2024-07-15 09:48] VITALS: BP 119/75; PULSE 81
[2024-07-15] MEDS: Metoprolol(XL)Succ 25 MG Tablet PO ×2 (09:48→23:01)
[2024-07-15] MEDS: Enoxaparin 40 MG/0.4 ML Syringe SC (09:48)
[2024-07-15] MEDS: TICAGRELOR 90 MG TABLET PO ×2 (09:48→23:02)
[2024-07-15] MEDS: Aspirin E.C. 81 MG Tablet PO (09:48)
--- NOTE | 2024-07-15 11:40 | CASEMGMT ---
Social Work Per physician, pt is medically cleared to be evaluated by crisis for psychiatric placement. [facility] and clinicals faxed. Crisis to see patient today. NAUN Mcadams
[2024-07-15 14:00] VITALS: BP 128/81; PULSE 86; RESP 16; TEMP 37.1; O2SAT 96
--- NOTE | 2024-07-15 14:28 | CASEMGMT ---
Social Work Crisis Counselor her to see pt. Pt deemed appropriate for psychiatric placement. Crisis center will work on placement and notify staff when a facility is secured. NAUN Mcadams
--- NOTE | 2024-07-15 15:41 | DCINST_ITS ---
Discharge Instructions Diet Discharge Diet: No restrictions Follow Up Care Test Results: Test results from this visit will be discussed in further detail at your follow- up appointment, if applicable. Discharge Plan Admission Admit Date/Time: 07/13/24 10:45 Primary Reason for Your Visit: intentional overdose. Attending Provider: Hernán Javier Primary Care Provider: Myriam Bell Discharge Orders/Prescriptions Prescriptions: Continued atorvastatin [Lipitor] 40 mg tablet 40 mg PO QDAY Patient Comments: Not sure if she is taking this or not aspirin [Adult Aspirin Regimen] 81 mg tablet,delayed release (DR/EC) 81 mg PO QDAY Brilinta 90 mg tablet 90 mg PO BID fluticasone propionate [Flonase Allergy Relief] 50 mcg/actuation spray,suspension 1 spray intranasal QDAY Rx Instructions: administer into each nostril albuterol sulfate 90 mcg/actuation HFA aerosol inhaler 2 puff inhalation Q6H PRN (Reason: shortness of breath or wheezing) Patient Comments: Has not needed for awhile lysine 1,000 mg tablet 1,000 mg PO QDAY cholecalciferol (vitamin D3) 25 mcg (1,000 unit) capsule 25 mcg PO QDAY biotin 5 mg capsule 5 mg PO QDAY magnesium 200 mg tablet 400 mg PO BID metoprolol succinate 25 mg tablet extended release 24 hr 25 mg PO BID Discontinued cyclobenzaprine 5 mg tablet 5 mg PO QHS acyclovir 400 mg tablet 400 mg PO QDAY PRN (Reason: cold sores) Patient Comments: Has not needed for awhile duloxetine 30 mg capsule,delayed release(DR/EC) 30 mg PO BID 90 Days Qty: 180 1RF pregabalin 50 mg capsule 50 mg PO TID Patient Comments: Has not taken for a long time- but took last night 07/12/24 Referrals / Follow Up: Myriam Bell MD [Primary Care Provider] - Within 2 Weeks Disposition Disposition (needs filled in before D/C Order can be placed): Psychiatric Hospital or Unit
[2024-07-15 23:01] VITALS: BP 116/77; PULSE 85
[2024-07-15] MEDS: Atorvastatin Calcium 40 MG Tablet PO (23:02)
[2024-07-15 23:04] VITALS: BP 116/77; PULSE 85; RESP 18; TEMP 36.8; O2SAT 98
[2024-07-16 04:18] VITALS: BP 120/82; PULSE 88; RESP 16; TEMP 37; O2SAT 97
[2024-07-16 06:00] VITALS: BMI 21.7
[2024-07-16 07:40] VITALS: O2SAT 97
[2024-07-16 08:20] VITALS: BP 112/71; PULSE 96; RESP 16; TEMP 36.9; O2SAT 97
[2024-07-16 09:49] VITALS: PULSE 96
[2024-07-16] MEDS: Enoxaparin 40 MG/0.4 ML Syringe SC (09:49)
[2024-07-16] MEDS: TICAGRELOR 90 MG TABLET PO (09:49)
[2024-07-16] MEDS: Aspirin E.C. 81 MG Tablet PO (09:49)
[2024-07-16] MEDS: Metoprolol(XL)Succ 25 MG Tablet PO (09:49)
--- NOTE | 2024-07-16 10:02 | DS.PCM_ITS ---
Providers Date of Admission: 07/13/24 Primary Care Physician: Dr. Myriam Bell MD Reason For Visit: OVERDOSE Diagnosis Discharge Diagnosis (1) Generalized tonic-clonic seizure: Status: Acute Code(s): G40.409 - Other generalized epilepsy and epileptic syndromes, not intractable, without status epilepticus Plan: likely 2/2 to tramadol overdose. No prior seizure history. Place seizure precautions. Pt likely will not require seizure restrictions after discharge No further seizures (2) Intentional overdose: Status: Acute Code(s): T50.902A - Poisoning by unspecified drugs, medicaments and biological substances, intentional self-harm, initial encounter Plan: Suicide attempt. Pt took pregabalin, tramadol and meloxicam Pt has already been pink-slipped by Dr. Rea. When patient is medically ready, she will need Crisis consult to psychiatric unit placement. Sitter at bedside. Per nursing in the ICU, pt was unremorsefull about the attempt and upset it did not succeed. Continue suicide precautions. Appropriate for Crisis evaluation (3) Acute hypotension: Status: Acute Code(s): I95.9 - Hypotension, unspecified Plan: Resolved. Likely iatrogenic.Will give IVF. Monitor (4) Encephalopathy: Status: Acute Code(s): G93.40 - Encephalopathy, unspecified Qualifiers: Encephalopathy type: toxic Toxic encephalopathy cause: unspecified toxin Qualified Code(s): G92.9 - Unspecified toxic encephalopathy Plan: Improving toxic encephalopathy 2/2 intentional ingestion of multiple large quantities of medicatoins Pt has pulled out several IVs, so will avoid further attmepts and encourage ongoing oral intake. Plan ROBI v CKD * no prior labs. * IVF and monitor Abnormal drug screen * PCP likely falsly positive from tramadol Chronic conditions * Fibromomyalgia: no further pregabalin nor tramadol * CAD: s/p PCI. continue ticagrelor, ASA, statin, metoprolol tartrate. VTE prophylaxis: enoxaparin DW pt's [id number] at bedside. Medications at Discharge Home Medications albuterol sulfate 90 mcg/actuation aerosol inhaler 2 puff inhalation Q6H PRN shortness of breath or wheezing 06/14/24 aspirin 81 mg tablet,delayed release (Adult Aspirin Regimen) 81 mg PO QDAY heart health 06/14/24 atorvastatin 40 mg tablet (Lipitor) 40 mg PO QDAY cholesterol 06/14/24 biotin 5 mg capsule 5 mg PO QDAY supplement 06/14/24 cholecalciferol (vitamin D3) 25 mcg (1,000 unit) capsule 25 mcg PO QDAY supplement 06/14/24 fluticasone propionate 50 mcg/actuation nasal spray,suspension (Flonase Allergy Relief) 1 spray intranasal QDAY allergy 06/14/24 lysine 1,000 mg tablet 1,000 mg PO QDAY cold sore 06/14/24 magnesium 200 mg tablet 400 mg PO BID supplement 06/14/24 ticagrelor 90 mg tablet (Brilinta) 90 mg PO BID blood thinner 06/14/24 metoprolol succinate 25 mg tablet,extended release 24 hr 25 mg PO BID blood pressure 07/13/24 Hospital Course Operations None Procedures None Summary of Care Provided Hospital Course: Patient presented with intentional drug overdose with Lyrica and tramadol. She was noted to have 2 seizures at home. She was postictal initially. Came to was alert but then became more confused and was hallucinating. Patient was observed and then on patient was overall better crisis evaluated and patient was evaluated and determined a candidate for psychiatric unit. Patient be going to a psychiatric unit today in stable condition. Weight / BMI Weight Weight: 59.2 kg Body Mass Index (BMI) 21.7 ABG / Lab / Microbiology Data 07/14/24 04:25 07/14/24 04:25 D/C Instructions Discharge Diet: No restrictions DC O2, CPAP, BIPAP Needs Additional Home O2 Discharge instructions: No DC home with Oxygen: No Meaningful Use Info Meaningful Use Meaningful Use Diagnoses (Choose all that apply): None applicable Ischemic Stroke Statin Dosing Therapy Reference: STATIN DOSE THERAPY REFERENCE: * Patients > 75 years receive moderate or high dose statin therapy. * Patients 75 years or YOUNGER should receive HIGH intensity statin dose unless contraindicated. You will be required to document reason for non-treatment if statin daily dose does not meet guidelines. HIGH DOSE STATIN THERAPY DAILY Atorvastatin > than or = to 40 mg Rosuvastatin > than or = to 20 mg Amlodipine + Atorvastatin > than or = to 2.5/40 mg Ezetimibe + Simvastatin 10/80 mg Simvastatin 80mg Discharge Plan Admission Admit Date/Time: 07/13/24 10:45 Primary Reason for Your Visit: intentional overdose. Attending Provider: Hernán Javier Primary Care Provider: Myriam Bell Discharge Orders/Prescriptions Prescriptions: Continued atorvastatin [Lipitor] 40 mg tablet 40 mg PO QDAY Patient Comments: Not sure if she is taking this or not aspirin [Adult Aspirin Regimen] 81 mg tablet,delayed release (DR/EC) 81 mg PO QDAY Brilinta 90 mg tablet 90 mg PO BID fluticasone propionate [Flonase Allergy Relief] 50 mcg/actuation spray,suspension 1 spray intranasal QDAY Rx Instructions: administer into each nostril albuterol sulfate 90 mcg/actuation HFA aerosol inhaler 2 puff inhalation Q6H PRN (Reason: shortness of breath or wheezing) Patient Comments: Has not needed for awhile lysine 1,000 mg tablet 1,000 mg PO QDAY cholecalciferol (vitamin D3) 25 mcg (1,000 unit) capsule 25 mcg PO QDAY biotin 5 mg capsule 5 mg PO QDAY magnesium 200 mg tablet 400 mg PO BID metoprolol succinate 25 mg tablet extended release 24 hr 25 mg PO BID Discontinued cyclobenzaprine 5 mg tablet 5 mg PO QHS acyclovir 400 mg tablet 400 mg PO QDAY PRN (Reason: cold sores) Patient Comments: Has not needed for awhile duloxetine 30 mg capsule,delayed release(DR/EC) 30 mg PO BID 90 Days Qty: 180 1RF pregabalin 50 mg capsule 50 mg PO TID Patient Comments: Has not taken for a long time- but took last night 07/12/24 Referrals / Follow Up: Myriam Bell MD [Primary Care Provider] - Within 2 Weeks Disposition Disposition (needs filled in before D/C Order can be placed): Psychiatric Hospital or Unit Charges/Coding Visit Charges Inpatient E&M: 64299 Disch Hosp
== END 2024-07-16 12:32 | DRG 917 ==
LOC: ED 10:46 → ICU 11:18 → MS3 07-15 17:42
PROVIDERS: Emergency Provider Emergency Medicine; PCP Internal Medicine
DX: T42.6X2A Poisoning by other antiepileptic and sedative-hypnotic drugs, intentional self-harm, initial encounter (principal); G92.9 Unspecified toxic encephalopathy; E87.20 Acidosis, unspecified; G40.89 Other seizures; N17.9 Acute kidney failure, unspecified; I50.9 Heart failure, unspecified; F32.A Depression, unspecified; T40.2X4A Poisoning by other opioids, undetermined, initial encounter; I25.10 Atherosclerotic heart disease of native coronary artery without angina pectoris; E78.00 Pure hypercholesterolemia, unspecified; F41.9 Anxiety disorder, unspecified; M79.7 Fibromyalgia; T40.422A Poisoning by tramadol, intentional self-harm, initial encounter; T39.392A Poisoning by other nonsteroidal anti-inflammatory drugs [NSAID], intentional self-harm, initial encounter; R44.1 Visual hallucinations; R11.2 Nausea with vomiting, unspecified; I95.89 Other hypotension; R45.1 Restlessness and agitation; R79.89 Other specified abnormal findings of blood chemistry; R94.31 Abnormal electrocardiogram [ECG] [EKG]; Z79.82 Long term (current) use of aspirin; Z79.02 Long term (current) use of antithrombotics/antiplatelets; Z79.899 Other long term (current) drug therapy; Z87.891 Personal history of nicotine dependence
CPT/HCPCS: 70450; 80053; 80307; 81001; 81025; 82077; 83605; 83690; 83735; 85025; 85610; 85730; 93005; 99285; J7030; P9612; A4216; J2405

== ENCOUNTER → 2024-08-02 | Outpatient (CLI) | payer OTHER, SELFPAY ==
[2024-08-02 14:59] LABS: Absolute Lymphocyte Count 2.13 X10^3/uL (0.83-4.51); Absolute Neutrophil Count 3.8 X10^3/uL (2.0-7.7); Basophil# 0.07 X10^3/uL; Eosinophil# 0.27 X10^3/uL; Hematocrit 29.4 % (37-47); Hemoglobin 9.3 g/dL (12.0-15.0); Lymphocyte # 2.13 X10^3/ul (0.83-4.51); Lymphocyte % 31.4 % (19-41); Mean Corp Hgb Conc 31.6 g/dL (32-36); Mean Corpuscular Hgb 30.1 pg (27.0-32.0); Mean Corpuscular Volume 95.1 fL (81-99); Mean Platelet Vol. 9.2 fl (6.2-12.0); Monocyte# 0.53 X10^3/uL; Monocyte% 7.8 % (0-10); NRBC Flagged by Analyzer 0 % (0-5); Neutrophil # 3.76 X10^3/uL (2.7-7.7); Neutrophil % 55.4 % (47-70); Platelet Count 325 K/mm3 (150-450); RBC Distribution Width CV 16.2 % (11.6-14.6); RBC Distribution Width SD 55.9 fl (35.1-43.9); Red Blood Count 3.09 M/mm3 (4.2-5.4); White Blood Count 6.8 K/mm3 (4.4-11.0)
[2024-08-02 16:02] LABS: ALB/GLOB Ratio 1.1 RATIO (0.9-2.4); AST(SGOT) 14 U/L (15-37); Alanine Aminotransfer ALT/SGPT 17 U/L (13-56); Albumin, Serum 3.6 g/dL (3.2-5.0); Alkaline Phosphatase 85 U/L (45-117); Anion Gap 7 (5-15); BUN 11 mg/dL (7-18); Chloride 109 mmol/L (98-107); EST Glomerular Filtration Rate 55 mL/min (>60); Est Glom Filt Rate - Afr Amer 67 mL/min (>60); Globulin 3.4 g/dL (2.2-4.2); Glucose 99 mg/dL (74-106); Potassium 3.9 mmol/L (3.5-5.1); Sodium Level 142 mmol/L (136-145); T4 Free Direct 0.89 ng/dL (0.76-1.46); Thyroid Stim Hormone (TSH) 0.567 uIU/mL (0.358-3.740)
== END | disposition home or self-care (01) ==
LOC: LAB 14:07
PROVIDERS: PCP Internal Medicine; Referring Provider Internal Medicine; Visit Provider Internal Medicine
DX: F41.9 Anxiety disorder, unspecified (principal); F32.A Depression, unspecified
CPT/HCPCS: 36415; 80053; 84439; 84443; 85025

== ENCOUNTER 2024-11-28 17:04 | Emergency (ER) | payer OTHER, SELFPAY ==
[2024-11-28 17:05] VITALS: BP 167/111; PULSE 128; RESP 18; TEMP 36.8; O2SAT 100; BMI 23.3
--- NOTE | 2024-11-28 17:17 | EKG12_ITS ---
Test Reason : CP Blood Pressure : */* mmHG Vent. Rate : 94 BPM Atrial Rate : 94 BPM P-R Int : 124 ms QRS Dur : 92 ms QT Int : 340 ms P-R-T Axes : 60 30 -37 degrees QTcB Int : 425 ms Sinus rhythm with occasional Premature ventricular complexes Inferior infarct (cited on or before 13-Jul-2024) T wave abnormality, consider lateral ischemia Abnormal ECG Confirmed by WILLIE MILLER MD ([id number]), telegraph editor DANIEL TOVAR ([id number]) on 11/29/2024 9:14:37 AM Referred By: Confirmed By: WILLIE MILLER MD
--- NOTE | 2024-11-28 17:20 | EDS_ITS ---
HPI <MINERVA Martinez - Last Filed: 11/28/24 20:19> History of Present Illness Chief Complaint: Chest Pain Narrative Narrative: Patient presenting today with epigastric burning abdominal pain that radiates to the mid sternum she has had since last night. She reports concerns given previous NSTEMI about 1 year ago at [facility], she does follow with cardiology there. She takes Brilinta and aspirin. She had a echocardiogram performed Friday that according to her showed an LVEF of 45 to 50%. She reports mild shortness of breath since yesterday. She denies fevers, chills, and vomiting. She has a PMH of CAD, fibromyalgia, anxiety, depression, and HTN. PE Risk Factors: Negative for Recent Travel/Surgery, Recent Immobilization, Prior DVT or PE or Cancer PFSH <MINERVA Martinez - Last Filed: 11/28/24 20:19> PFSH Medical History Myocardial infarction Shingles Anemia Gastritis Fatigue History of suicide attempt Migraine CAD (coronary artery disease) Anxiety and depression Health care maintenance Fibromyalgia Vision problems GERD (gastroesophageal reflux disease) Irritable bowel syndrome Recurrent infections High blood cholesterol Heart failure High blood pressure Hearing problem Heart disease Head ache Gastrointestinal problem Emotional problems Carpal tunnel syndrome History of blood transfusion Back pain Seasonal allergies Home Medications ?Medication ?Instructions ?Recorded ?Last Taken ?Type albuterol sulfate 90 mcg/actuation 2 puff inhalation Q 6H PRN 06/14/24 Unknown History aerosol inhaler shortness of breath or wheez ing aspirin 81 mg tablet,delayed 81 mg PO QDAY heart healt h 06/14/24 11/28/24 History release (Adult Aspirin Regimen) atorvastatin 40 mg tablet (Lipitor) 40 mg PO QDAY chol esterol 06/14/24 11/27/24 History biotin 5 mg capsule 5 mg PO QDAY supplement 05/2611/27/24 History cholecalciferol (vitamin D3) 25 25 mcg PO QDAY supplem ent 06/14/24 11/28/24 History mcg (1,000 unit) capsule fluticasone propionate 50 1 spray intranasal QDAY crystal rgy 06/14/24 11/28/24 History mcg/actuation nasal spray,suspension (Flonase Allergy Relief) lysine 1,000 mg tablet 1,000 mg PO QDAY cold sore 1 11/28/24 History ticagrelor 90 mg tablet (Brilinta) 90 mg PO BID blood thinner 06/14/24 11/28/24 History metoprolol succinate 25 mg 25 mg PO BID blood pressure 07/13/24 11/28/24 History tablet,extended release 24 hr duloxetine 30 mg capsule,delayed 30 mg PO BID 07/29/24 11/28/24 History release magnesium oxide 400 mg PO BID #180 tabs 07/2511/27/24 Rx montelukast 10 mg tablet 10 mg PO QDAY #90 tabs 08/2611/27/24 Rx valacyclovir 1 gram tablet 1,000 mg PO TID #21 tabs Unknown Rx buspirone 7.5 mg tablet 7.5 mg PO DAILY 11/28/2402/16 History cyclobenzaprine 5 mg tablet 5 mg PO QHS 11/28/2411/27 History Allergy/AdvReac Type Severity Reaction Status Date / Time codeine Allergy Intermediate Vomiting Verified 11/28/24 18:05 Family History Father Angina at rest Myocardial infarction, Onset Age: 70 High cholesterol
--- NOTE | 2024-11-28 17:20 | ED.VIS.CHEST ---
HPI <MINERVA Martinez - Last Filed: 11/28/24 20:19> History of Present Illness Chief Complaint: Chest Pain Narrative Narrative: Patient presenting today with epigastric burning abdominal pain that radiates to the mid sternum she has had since last night. She reports concerns given previous NSTEMI about 1 year ago at [facility], she does follow with cardiology there. She takes Brilinta and aspirin. She had a echocardiogram performed Friday that according to her showed an LVEF of 45 to 50%. She reports mild shortness of breath since yesterday. She denies fevers, chills, and vomiting. She has a PMH of CAD, fibromyalgia, anxiety, depression, and HTN. PE Risk Factors: Negative for Recent Travel/Surgery, Recent Immobilization, Prior DVT or PE or Cancer PFSH <MINERVA Martinez - Last Filed: 11/28/24 20:19> PFSH Medical History Myocardial infarction Shingles Anemia Gastritis Fatigue History of suicide attempt Migraine CAD (coronary artery disease) Anxiety and depression Health care maintenance Fibromyalgia Vision problems GERD (gastroesophageal reflux disease) Irritable bowel syndrome Recurrent infections High blood cholesterol Heart failure High blood pressure Hearing problem Heart disease Head ache Gastrointestinal problem Emotional problems Carpal tunnel syndrome History of blood transfusion Back pain Seasonal allergies Home Medications ?Medication ?Instructions ?Recorded ?Last Taken ?Type albuterol sulfate 90 mcg/actuation 2 puff inhalation Q6H PRN 06/14/24 Unknown History aerosol inhaler shortness of breath or wheezing aspirin 81 mg tablet,delayed 81 mg PO QDAY heart health 06/14/24 11/28/24 History release (Adult Aspirin Regimen) atorvastatin 40 mg tablet (Lipitor) 40 mg PO QDAY cholesterol 06/14/24 11/27/24 History biotin 5 mg capsule 5 mg PO QDAY supplement 06/14/24 11/27/24 History cholecalciferol (vitamin D3) 25 25 mcg PO QDAY supplement 06/14/24 11/28/24 History mcg (1,000 unit) capsule fluticasone propionate 50 1 spray intranasal QDAY allergy 06/14/24 11/28/24 History mcg/actuation nasal spray,suspension (Flonase Allergy Relief) lysine 1,000 mg tablet 1,000 mg PO QDAY cold sore 06/14/24 11/28/24 History ticagrelor 90 mg tablet (Brilinta) 90 mg PO BID blood thinner 06/14/24 11/28/24 History metoprolol succinate 25 mg 25 mg PO BID blood pressure 07/13/24 11/28/24 History tablet,extended release 24 hr duloxetine 30 mg capsule,delayed 30 mg PO BID 07/29/24 11/28/24 History release magnesium oxide 400 mg PO BID #180 tabs 08/09/24 11/27/24 Rx montelukast 10 mg tablet 10 mg PO QDAY #90 tabs 08/26/24 11/27/24 Rx valacyclovir 1 gram tablet 1,000 mg PO TID #21 tabs 11/15/24 Unknown Rx buspirone 7.5 mg tablet 7.5 mg PO DAILY 11/28/24 11/28/24 History cyclobenzaprine 5 mg tablet 5 mg PO QHS 11/28/24 11/27/24 History Allergy/AdvReac Type Severity Reaction Status Date / Time codeine Allergy Intermediate Vomiting Verified 11/28/24 18:05 Family History Father Angina at rest Myocardial infarction, Onset Age: 70 High cholesterol Mother History of blood transfusion Anxiety Hypertension Aunt Cancer breast Grandfather Myocardial infarction, Onset Age: 70 Sister Asthma Surgical History S/P right coronary artery (RCA) stent placement H/O section History of hysterectomy H/O wisdom tooth extraction S/P foot surgery Hx of tonsillectomy S/P appendectomy Social History household members: other details: ex in laws housing: house current occupational status: employed 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 Smoking Status: Current every day smoker tobacco type: e-cigarettes Tobacco: How many years used: 26 alcohol intake: never substance use type: marijuana and other details: CBD ,delta 8 what type of physical activity do you participate in: yoga frequency: 3-4 times per week duration: 15-30 minutes/day seatbelt use: always do you feel safe at home: Yes ROS <MINERVA Martinez - Last Filed: 11/28/24 20:19> ROS ED Constitutional Constitutional ED: Denies chills or fever(s) Cardiovascular Cardiovascular: Reports chest pain; Denies palpitations Respiratory/Chest Respiratory/Chest: Reports dyspnea on exertion; Denies cough Gastrointestinal Gastrointestinal: Denies abdominal pain, nausea or vomiting Musculoskeletal Musculoskeletal: Denies arthralgias or myalgias Integumentary Denies rash Neurologic Neurologic: Denies weakness EXAM <MINERVA Martinez - Last Filed: 11/28/24 20:19> Physical Exam Const Vital Signs: 11/28/24 17:05 11/28/24 17:24 11/28/24 18:04 Temperature 98.3 F Temperature Source Oral Pulse Rate 128 H 78 Respiratory Rate 18 19 H Respiratory Effort Normal Respiratory Pattern Normal Blood Pressure 167/111 H 134/88 H Blood Pressure Mean 129 103 Pulse Ox 100 99 Oxygen Delivery Method Room Air Room Air 11/28/24 19:00 11/28/24 20:03 Temperature 97.9 F Temperature Source Pulse Rate 79 77 Respiratory Rate 19 H 18 Respiratory Effort Respiratory Pattern Blood Pressure 120/98 H 111/80 Blood Pressure Mean 105 90 Pulse Ox 99 98 Oxygen Delivery Method Room Air Positive well nourished, well developed and no apparent distress General Appearance ED: well developed HEENT Reports normocephalic and head/scalp atraumatic Mouth ED: Yes moist mucous membranes normal Eyes PERRL and EOMs intact bilaterally Neck full ROM and supple Chest Wall inspection of chest normal Chest Narrative: Substernal chest tenderness to palpation Resp normal respiratory effort and clear to auscultation bilaterally Cardio regular rate and regular rhythm GI soft to palpation, non-distended and no masses GI Narrative: Minimal epigastric tenderness to palpation, no rigidity or guarding. Back/Spine normal ROM and normal to inspection Extremity normal to inspection and full ROM Neuro oriented x3, CN's II-XII intact bilaterally, moves all extremities, no focal motor deficits and no sensory deficits noted Sensorium / Orientation: awake and alert Psych mental status grossly normal and thought process normal Skin no rashes or lesions noted and no wounds <Facundo Garcia MD - Last Filed: 11/28/24 20:33> Physical Exam Const Vital Signs: 11/28/24 17:05 11/28/24 17:24 11/28/24 18:04 Temperature 98.3 F Temperature Source Oral Pulse Rate 128 H 78 Respiratory Rate 18 19 H Respiratory Effort Normal Respiratory Pattern Normal Blood Pressure 167/111 H 134/88 H Blood Pressure Mean 129 103 Pulse Ox 100 99 Oxygen Delivery Method Room Air Room Air 11/28/24 19:00 11/28/24 20:03 Temperature 97.9 F Temperature Source Pulse Rate 79 77 Respiratory Rate 19 H 18 Respiratory Effort Respiratory Pattern Blood Pressure 120/98 H 111/80 Blood Pressure Mean 105 90 Pulse Ox 99 98 Oxygen Delivery Method Room Air [facility] <MINERVA Martinez - Last Filed: 11/28/24 20:19> [facility] Narrative Medical decision making narrative: Patient presenting today with epigastric abdominal pain that radiates to her mid sternum that started last night. She has concerns for cardiac etiology given history of NSTEMI about a year ago at [facility]. However, she reports that she has had pain similar to this many times in the past starting when she was about 16 years old as she has a history of gastritis and GERD. She reports that her PCP discussed referring her to a GI doctor in the future. She used to take antiacids chronically. She does appear somewhat anxious on exam and initially was slightly tachycardic, but otherwise is nontoxic-appearing. D-dimer obtained to assess for PE and is negative. She has minimal tenderness to the epigastric region, cardiac/abdominal labs obtained. Her CBC, CMP, lipase, and delta troponin are unremarkable. She was given a GI cocktail and Pepcid and on reexamination reports significant improvement of her symptoms. She was reassured regarding her workup and her blood pressure improved to 111/80 and her heart rate has improved. She reports feeling much more calm. I suspect she was likely nervous given her history of CAD. I suspect her pain was more GI related than cardiac. Given she is feeling better, I feel that she can be discharged home to follow-up with her PCP. Recommended she follow-up in the next 5 to 7 days. Patient discharged in stable condition. Lab Data Attestation: I reviewed the patient's lab results. Labs: Laboratory Results - last 24 hr 11/28/24 11/28/24 17:19 19:26 WBC 10.8 RBC 4.53 Hgb 14.4 Hct 42.5 MCV 93.8 MCH 31.8 MCHC 33.9 RDW Std Deviation 47.4 H RDW Coeff of Marisa 13.9 Plt Count 201 MPV 9.0 Immature Gran % (Auto) 0.400 Neut % (Auto) 68.6 Lymph % (Auto) 24.1 [place] % (Auto) 5.1 Eos % (Auto) 1.2 Baso % (Auto) 0.6 Absolute Neuts (auto) 7.4 Absolute Lymphs (auto) 2.60 Nucleated RBC % 0 D-Dimer Quant (PE/DVT) 0.27 Sodium 139 Potassium 3.8 Chloride 103 Carbon Dioxide 21.2 Anion Gap 15 BUN 17 Creatinine 0.91 Estim Creat Clear Calc 63.59 Est GFR (MDRD) Non-Af 75 BUN/Creatinine Ratio 18.1 Glucose 94 Calcium 9.8 Total Bilirubin 0.41 AST 26 ALT 23 Alkaline Phosphatase 104 Troponin T High Sens 8 Troponin T Hi Sens 2 Hr 9 Total Protein 7.4 Albumin 4.7 Globulin 2.7 Albumin/Globulin Ratio 1.8 Lipase 50 Radiography X-Ray: Read by ED Physician Diagnostic Testing: Clinical Impression(s) from Imaging Studies Chest X-Ray 11/28/24 17:25 IMPRESSION: NO ACUTE FINDINGS. Reading [facility] E[facility] Initial EKG: Comments: 94 bpm, sinus rhythm with occasional PVCs, no ST elevation, interpreted by attending ED physician <Facundo Garcia MD - Last Filed: 11/28/24 20:33> [facility] Lab Data Labs: Laboratory Results - last 24 hr 11/28/24 11/28/24 17:19 19:26 WBC 10.8 RBC 4.53 Hgb 14.4 Hct 42.5 MCV 93.8 MCH 31.8 MCHC 33.9 RDW Std Deviation 47.4 H RDW Coeff of Marisa 13.9 Plt Count 201 MPV 9.0 Immature Gran % (Auto) 0.400 Neut % (Auto) 68.6 Lymph % (Auto) 24.1 [place] % (Auto) 5.1 Eos % (Auto) 1.2 Baso % (Auto) 0.6 Absolute Neuts (auto) 7.4 Absolute Lymphs (auto) 2.60 Nucleated RBC % 0 D-Dimer Quant (PE/DVT) 0.27 Sodium 139 Potassium 3.8 Chloride 103 Carbon Dioxide 21.2 Anion Gap 15 BUN 17 Creatinine 0.91 Estim Creat Clear Calc 63.59 Est GFR (MDRD) Non-Af 75 BUN/Creatinine Ratio 18.1 Glucose 94 Calcium 9.8 Total Bilirubin 0.41 AST 26 ALT 23 Alkaline Phosphatase 104 Troponin T High Sens 8 Troponin T Hi Sens 2 Hr 9 Total Protein 7.4 Albumin 4.7 Globulin 2.7 Albumin/Globulin Ratio 1.8 Lipase 50 Radiography Chest X-Ray - ED: 1 View, Read by ED Physician and Read by Radiologist Diagnostic Testing: Clinical Impression(s) from Imaging Studies Chest X-Ray 11/28/24 17:25 IMPRESSION: NO ACUTE FINDINGS. Reading [facility] Treatment and Re-Evaluation :: Dr. Garcia: I have personally performed a face to face assessment of the patient and have reviewed the JEREMIAH Note. I performed a substantive portion of the visit including all aspects of the following. My sanz findings include: History is elevated blood pressure, shakiness, chest pain with history of NSTEMI, history of anxiety. Exam is afebrile. Vital signs noted. Nontoxic-appearing. Cardiovascular examination reveals tachycardia, lungs clear to auscultation bilaterally. Abdomen soft and nontender without guarding or rebound, positive bowel sounds. Neurological examination nonfocal nonlateralizing. Medical Decision Making: Check labs. Check EKG. Check chest x-ray. On my independent interpretation of her chest x-ray, there is no acute process. I reviewed the radiology report which confirms my independent interpretation. EKG interpreted by myself shows no STEMI. Check labs. Delta troponin negative. Blood pressure normalized, no longer tachycardic upon repeat examination. Improved. Discharge. Other additions or changes: [None] Discharge Plan Triage Chief Complaint: Chest Pain Other Complaint: Hypertension ED Midlevel Provider: Laurel Good ED Provider: Facundo Garcia Dx/Rx/DC Orders Clinical Impression: Gastritis, CAD (coronary artery disease) Instructions: ED Chest Pain, Noncardiac, ED Gastritis (Adult) Prescriptions: No Action atorvastatin [Lipitor] 40 mg tablet 40 mg PO QDAY Patient Comments: Not sure if she is taking this or not aspirin [Adult Aspirin Regimen] 81 mg tablet,delayed release (DR/EC) 81 mg PO QDAY Brilinta 90 mg tablet 90 mg PO BID fluticasone propionate [Flonase Allergy Relief] 50 mcg/actuation spray,suspension 1 spray intranasal QDAY Rx Instructions: administer into each nostril albuterol sulfate 90 mcg/actuation HFA aerosol inhaler 2 puff inhalation Q6H PRN (Reason: shortness of breath or wheezing) Patient Comments: Has not needed for awhile lysine 1,000 mg tablet 1,000 mg PO QDAY cholecalciferol (vitamin D3) 25 mcg (1,000 unit) capsule 25 mcg PO QDAY biotin 5 mg capsule 5 mg PO QDAY duloxetine 30 mg capsule,delayed release(DR/EC) 30 mg PO BID valacyclovir 1 gram tablet 1,000 mg PO TID Qty: 21 0RF metoprolol succinate 25 mg tablet extended release 24 hr 25 mg PO BID cyclobenzaprine 5 mg tablet 5 mg PO QHS buspirone 7.5 mg tablet 7.5 mg PO DAILY magnesium oxide 400 mg magnesium tablet 400 mg PO BID Qty: 180 1RF montelukast 10 mg tablet 10 mg PO QDAY Qty: 90 1RF Primary Care Provider: Myriam Bell Referrals: Myriam Bell MD [Primary Care Provider] - 5-7 Days Activity Restrictions/Additional Instructions: Follow-up with your PCP and return for any worsening symptoms. Print Language: Swedish Disposition Disposition: Home, Self Care Discharge Date/Time: 11/28/24 20:17
--- NOTE | 2024-11-28 17:25 | RAD_ITS ---
PROCEDURE: CHEST PA AND LATERAL 11/28/2024 REASON FOR EXAM: CHEST PAIN TECHNIQUE: Frontal and lateral views of the chest. COMPARISON: None FINDINGS: Hardware: None Heart: The heart size is normal. Mediastinum: The mediastinal contour is unremarkable. Lungs: The lungs are clear. Bones: The bones are unremarkable. RAD/Chest PA and Lateral IMPRESSION: NO ACUTE FINDINGS. Reading Location: [facility]
[2024-11-28 17:28] LABS: Absolute Neutrophil Count 7.4 X10^3/uL (2.0-7.7); Basophil# 0.06 X10^3/uL; Basophil% 0.6 % (0-1); Eosinophil# 0.13 X10^3/uL; Eosinophils% 1.2 % (0-5); Hematocrit 42.5 % (37-47); Hemoglobin 14.4 g/dL (12.0-15.0); Lymphocyte % 24.1 % (19-41); Mean Corp Hgb Conc 33.9 g/dL (32-36); Mean Corpuscular Hgb 31.8 pg (27.0-32.0); Mean Corpuscular Volume 93.8 fL (81-99); Monocyte# 0.55 X10^3/uL; Monocyte% 5.1 % (0-10); NRBC Flagged by Analyzer 0 % (0-5); Neutrophil # 7.43 X10^3/uL (2.7-7.7); Neutrophil % 68.6 % (47-70); Platelet Count 201 K/mm3 (150-450); RBC Distribution Width CV 13.9 % (11.6-14.6); RBC Distribution Width SD 47.4 fl (35.1-43.9); Red Blood Count 4.53 M/mm3 (4.2-5.4); White Blood Count 10.8 K/mm3 (4.4-11.0)
[2024-11-28 17:40] LABS: D-Dimer Quantitative (DVT/PE) 0.27 FEU/ug/m (0.27-0.49)
[2024-11-28 17:52] LABS: ALB/GLOB Ratio 1.8 RATIO (0.9-2.4); AST(SGOT) 26 U/L (<=31); Alanine Aminotransfer ALT/SGPT 23 U/L (<=34); Albumin, Serum 4.7 g/dL (3.5-5.0); Alkaline Phosphatase 104 U/L (35-104); Anion Gap 15 (5-15); BUN 17 mg/dL (4-19); BUN/Creat Ratio 18.1 RATIO (10-20); Calcium,Total 9.8 mg/dL (7.6-11.0); Carbon Dioxide 21.2 mmol/L (21.0-32.0); Chloride 103 mmol/L (98-108); Creatinine, Serum 0.91 mg/dL (0.70-1.20); EST Glomerular Filtration Rate 75 (>60); Estimated Creatinine Clearance 63.59 ml/min (50-250); Globulin 2.7 g/dL (2.2-4.2); Glucose 94 mg/dL (70-99); Lipase 50 U/L (13-75); Potassium 3.8 mmol/L (3.3-5.1); Protein, Total 7.4 g/dL (5.9-8.4); Sodium Level 139 mmol/L (133-145); Total Bilirubin 0.41 mg/dL (0.00-1.30); Troponin T High Sensitivity 8 ng/L (<=14)
[2024-11-28] MEDS: Mag Hydrox/Al Hydrox/Simeth 30 ML UDC PO (18:03)
[2024-11-28] MEDS: Lidocaine 2% Viscous15 ML UDC 15 ML PO (18:03)
[2024-11-28] MEDS: Famotidine 20 MG Tablet PO (18:03)
[2024-11-28 18:04] VITALS: BP 134/88; PULSE 78; RESP 19; O2SAT 99
[2024-11-28 19:00] VITALS: BP 120/98; PULSE 79; RESP 19; O2SAT 99
[2024-11-28 19:55] LABS: Troponin T High Sens 2 HR 9 ng/L (<=14)
[2024-11-28 20:03] VITALS: BP 111/80; PULSE 77; RESP 18; TEMP 36.6; O2SAT 98
== END 2024-11-28 20:17 | disposition home or self-care (01) ==
PROVIDERS: Physician Assistant; Emergency Provider Emergency Medicine; PCP Internal Medicine; Visit Provider Emergency Medicine
DX: K29.70 Gastritis, unspecified, without bleeding (principal); I11.0 Hypertensive heart disease with heart failure; I50.9 Heart failure, unspecified; I25.10 Atherosclerotic heart disease of native coronary artery without angina pectoris; F41.9 Anxiety disorder, unspecified; Z79.02 Long term (current) use of antithrombotics/antiplatelets; E78.00 Pure hypercholesterolemia, unspecified; Z79.82 Long term (current) use of aspirin; K21.9 Gastro-esophageal reflux disease without esophagitis; F17.290 Nicotine dependence, other tobacco product, uncomplicated; R06.09 Other forms of dyspnea
CPT/HCPCS: 71046; 80053; 83690; 84484; 85025; 85379; 93005; 99285; A4216

== ENCOUNTER → 2024-12-10 | Outpatient (CLI) | payer OTHER, SELFPAY ==
[2024-12-10 12:33] LABS: Absolute Lymphocyte Count 1.89 X10^3/uL (0.83-4.51); Absolute Neutrophil Count 3.7 X10^3/uL (2.0-7.7); Basophil# 0.06 X10^3/uL; Eosinophil# 0.28 X10^3/uL; Eosinophils% 4.4 % (0-5); Hematocrit 39.4 % (37-47); Hemoglobin 13.6 g/dL (12.0-15.0); Lymphocyte # 1.89 X10^3/ul (0.83-4.51); Mean Corp Hgb Conc 34.5 g/dL (32-36); Mean Corpuscular Hgb 31.7 pg (27.0-32.0); Mean Corpuscular Volume 91.8 fL (81-99); Monocyte% 6.3 % (0-10); NRBC Flagged by Analyzer 0 % (0-5); Neutrophil # 3.67 X10^3/uL (2.7-7.7); Neutrophil % 58.1 % (47-70); Platelet Count 214 K/mm3 (150-450); RBC Distribution Width CV 13.2 % (11.6-14.6); RBC Distribution Width SD 44.5 fl (35.1-43.9); Red Blood Count 4.29 M/mm3 (4.2-5.4); White Blood Count 6.3 K/mm3 (4.4-11.0)
[2024-12-10 13:33] LABS: Ferritin 67 ng/mL (22-378); Iron 88 ug/dL (50-170); Iron Binding Capacity,Total 349 ug/dL (250-450); Iron Binding Capacity,Unsat 261 ug/dL (228-428)
[2024-12-10 13:34] LABS: ALB/GLOB Ratio 1.7 RATIO (0.9-2.4); AST(SGOT) 20 U/L (<=31); Alanine Aminotransfer ALT/SGPT 18 U/L (<=34); Albumin, Serum 4.6 g/dL (3.5-5.0); Alkaline Phosphatase 94 U/L (35-104); Anion Gap 11 (5-15); BUN 15 mg/dL (4-19); BUN/Creat Ratio 16.4 RATIO (10-20); Calcium,Total 9.9 mg/dL (7.6-11.0); Carbon Dioxide 24.6 mmol/L (21.0-32.0); Chloride 103 mmol/L (98-108); Cholesterol 141 mg/dL (<=200); Creatinine, Serum 0.94 mg/dL (0.70-1.20); EST Glomerular Filtration Rate 72 (>60); Globulin 2.7 g/dL (2.2-4.2); Glucose 100 mg/dL (70-99); High Density Lipoprotein 46 mg/dL; Low Density Lipoprotein Calc. 77 mg/dL; Magnesium 2.3 mg/dL (1.5-2.2); Potassium 4.7 mmol/L (3.3-5.1); Protein, Total 7.3 g/dL (5.9-8.4); Sodium Level 139 mmol/L (133-145); Total Bilirubin 0.34 mg/dL (0.00-1.30); Triglycerides 88 mg/dL; Very Low Density Lipoprotein 18 mg/dL (5-40); cholesterol:hdl ratio screen 3.04
[2024-12-10 13:40] LABS: T4 Total, Thyroxin 6.4 ug/dL (4.8-13.9); Thyroid Stim Hormone (TSH) 0.567 uIU/mL (0.300-4.200)
== END | disposition home or self-care (01) ==
LOC: BIMLAB 08:17
PROVIDERS: PCP Internal Medicine; Referring Provider Physician Assistant; Visit Provider Physician Assistant
DX: E78.5 Hyperlipidemia, unspecified (principal); I42.9 Cardiomyopathy, unspecified; D64.9 Anemia, unspecified; R53.83 Other fatigue
CPT/HCPCS: 36415; 80053; 80061; 82728; 83540; 83550; 83735; 84436; 84443; 85025

== ENCOUNTER → 2025-02-12 | Outpatient (CLI) | payer OTHER, SELFPAY ==
--- OUTSIDE RECORDS SUMMARY | 2025-02-12 09:28 | XMS RPT_ITS | CCD ---
Author Organization [facility] Care Team Providers Care Supervisor [employer] Name Role Phone MARY JANE, TILA Unavailable MARY JANE, TILA Unavailable LUNNE, BAUTISTA Unavailable LUNNE, BAUTISTA Unavailable EVENS, CHAOHUA Unavailable EVENS, CHAOHUA Unavailable LUNNE, BAUTISTA Unavailable EVENS, CHAOHUA Unavailable EVENS, CHAOHUA Unavailable EVENS, CHAOHUA Unavailable LUNNE, BAUTISTA Unavailable EVENS, CHAOHUA Unavailable LUNNE, BAUTISTA Unavailable EVENS, CHAOHUA Unavailable EVENS, CHAOHUA Unavailable LUNNE, BAUTISTA Unavailable BREANA VERGARA Unavailable JAI BREANA Unavailable LUNNE, BAUTISTA Unavailable EVENS, CHAOHUA Unavailable EVENS, CHAOHUA Unavailable EVENS, CHAOHUA Unavailable LUNNE, BAUTISTA Unavailable EVENS, CHAOHUA Unavailable EVENS, CHAOHUA Unavailable EVENS, CHAOHUA Unavailable LUNNE, BAUTISTA Unavailable EVENS, CHAOHUA Unavailable LUNNE, BAUTISTA Unavailable EVENS, CHAOHUA Unavailable EVENS CHAOHUA Unavailable BAUTISTA MANZANO Unavailable CRISTOBAL HORNEROHUA Unavailable RENATA BAUTISTA R Primary Care Unavailable Paotne Bautista R Primary Care Provider RENATA BAUTISTA R Referring Unavailable PATONE, BAUTISTA R Primary Care Unavailable ScarlettАндрей Attending Unavailable Андрей Pantoja Attending Unavailable Ventura Manzanois R Primary Care Provider Aguilar Whitney Emergency Provider [phone] Bautista Manzano Ulises Primary Care Provider Patojerry Bautista Ulises Primary Care Provider [phone] Gabi Napoles Emergency Provider Jeremiah Ann Emergency Provider RENATA ESPINOZA, DR KELLER Primary Care Physician VENTURA MANZANOIS R Primary Care Unavailable FARIDA ZELAYA Referring Unavailable Bautista Manzano Ulises Primary Care Provider Mio Terrazas Attending Provider SILAS ESPINOZA, DR LIEBERMAN Attending Unavailable RENATA ESPINOZA, DR KELLER Primary Care Unavailable SILAS ESPINOZA, DR LIEBERMAN Admitting Unavailable CHANTEL MARTELL Consulting Unavailable JOSE PELLETIER MD Consulting Unavailable RENATA ESPINOZA, DR KELLER Primary Care Unavailable PATTI BULLOCK, DR TREE Guerra Attending Unavailable SILAS ESPINOZA, DR LIEBERMAN Attending Unavailable RENATA ESPINOZA, DR KELLER Primary Care Unavailable SILAS ESPINOZA, DR LIEBERMAN Attending Unavailable RENATA ESPINOZA, DR KELLER Primary Care Unavailable AFTAB ESPINOZA, DR NATHAN Guerra Attending Unavailable RENATA ESPINOZA, DR KELLER Primary Care Unavailable AL-SERVANDO, ANABrennon Attending Unavailable PATONE, BAUTISTA ULISES Primary Care Unavailable THU BOSS Attending Unavailable LUNNE, BAUTISTA ULISES Primary Care Unavailable AL-KHATEEB, ANAS Referring Unavailable LUNNE, BAUTISTA ULISES Primary Care Unavailable ARASELI MARKHAM Attending Unavailable AL-KATIEATEEB, ANAS Referring Unavailable PATONE, BAUTISTA ULISES Primary Care Unavailable THU BOSS Attending Unavailable THU BOSS Referring Unavailable LUNNE, BAUTISTA ULISES Primary Care Unavailable ARASELI MARKHAM Referring Unavailable LUNNE, BAUTISTA ULISES Primary Care Unavailable ROSEMARIE SANABRIA Referring Unavailable LUNNE, BAUTISTA ULISES Primary Care Unavailable IRIS GONZALEZ Attending Unavailable SELF Referring Unavailable LUNNE, BAUTISTA ULISES Primary Care Unavailable IRIS GONZALEZ Referring Unavailable LUNNE, BAUTISTA ULISES Primary Care Unavailable IRIS GONZALEZ Referring Unavailable LUNNE, BAUTISTA ULISES Primary Care Unavailable PRANAV PENA Referring Unavaila ble LUNNE, BAUTISTA ULISES Primary Care Unavailable PRANAV PENA Referring Unavaila ble LUNNE, BAUTISTA ULISES Primary Care Unavailable LUNNE, BAUTISTA ULISES Primary Care Unavailable NARCISO MELCHOR Admitting Unavailabl VLAD Garcia Consulting Unavailab TYESHA Perez Attending Unavailable Mio Terrazas Attending Unavailable Lunne, Bautista R Primary Care Unavailable Bernardino Louie Attending Unavailable Lunne, Bautista R Primary Care Unavailable Lunne, Bautista R Primary Care Unavailable Jeremiah Ann Attending Unavailable Dr. Bonifacio Bell MD Primary Care Provider Dr. Bonifacio Bell MD Attending Provider [phone] Dr. Bonifacio Bell MD Referring Provider [phone] Hubert Nolasco Attending Provider Jeremiah Fairbanks Attending Provider [phone] Facundo Garcia MD Emergency Provider [phone] BONIFACIO BELL MD Primary Care Unavailab carly VERGARA SENIOR DESIGNER/ART DIRECTOR-DIRECTOR PRODUCT, GERARD A Attending Danisha vailable BONIFACIO BELL MD Primary Care Unavailab BERNARDINO Garcia MD Attending Unavailable BERNARDINO LOUIE Attending Unavailable BERNARDINO LOUIE Admitting Unavailable BONIFACIO BELL MD Primary Care Unavailab Dr. Bonifacio Sampson MD Primary Care Provider Dr. Bonifacio Bell MD Referring Provider [phone] Facundo Garcia MD Attending Provider Sid Silva Attending Provider [phone] Sid Silva Referring Provider Darlyn CANAL EQUIPMENT MAINTENANCE SUPERVISOR-C, Tracy Attending Provider Bonifacio Bell MD Primary Care Provider GELY GOTTLIEB Referring Unavailable LUNNE, BAUTISTA ULISES Primary Care Unavailable GELY GOTTLIEB Attending Unavailable LUNNE, BAUTISTA ULISES Primary Care Unavailable ELIZABETH MEDRANO Attending Unavailable LUNNE, BAUTISTA ULISES Primary Care Unavailable LUNNE, BAUTISTA ULISES Primary Care Unavailable LUNNE, BAUTISTA ULISES Primary Care Unavailable GELY GOTTLIEB Attending Unavailable HOLDEN LINDSEY Attending Unavailable OLEGHE, EFEWONGBE B Primary Care Unavailable LUNNE, BAUTISTA ULISES Primary Care Unavailable LUNNE, BAUTISTA ULISES Primary Care Unavailable RADHA MACDONALD Attending Unavailable RADHA MACDONALD Referring Unavailable ANTHONY NICHOLS Referring Unavailable RADHA MACDONALD Attending Unavailable LUNNE, BAUTISTA ULISES Primary Care Unavailable ANTHONY NICHOLS Attending Unavailable LUNNE, BAUTISTA ULISES Primary Care Unavailable Oleghe, Efewongbe Primary Care Unavailable Leonor Javieric Admitting Unavailable Hernán Javier Attending Unavailable Darlyn CANAL EQUIPMENT MAINTENANCE SUPERVISORTracy Referring Unavailable Darlyn CANAL EQUIPMENT MAINTENANCE SUPERVISORTracy Attending Unavailable Oleghe, Efewongbe Primary Care Unavailable Oleghe, Efewongbe Primary Care Unavailable Oleghe, Efewongbe Referring Unavailable Sid Silva Attending Unavailable Oleghe, Efewongbe Referring Unavailable Darlyn CANAL EQUIPMENT MAINTENANCE SUPERVISORTracy Attending Unavailable Oleghe, Efewongbe Primary Care Unavailable Ellis, Lili Referring Unavailable Ellis, Lili Primary Care Unavailable Oleghe, Efewongbe Attending Unavailable Hubert Nolasco Attending Unavailable Oleghe, Efewongbe Primary Care Unavailable Oleghe, Efewongbe Referring Unavailable Oleghe, Efewongbe Primary Care Unavailable Oleghe, Efewongbe Referring Unavailable Jeremiah Fairbanks Attending Unavailable Oleghe, Efewongbe Primary Care Unavailable Oleghe, Efewongbe Referring Unavailable Sid Silva Attending Unavailable Clifforderi Hernán Consulting Unavailable Oleghe, Efewongbe Primary Care Unavailable Jopperi, Hernán Admitting Unavailable Jopperi, Hernán Attending Unavailable Oleghe, Efewongbe Primary Care Unavailable Oleghe, Efewongbe Referring Unavailable Oleghe, Efewongbe Attending Unavailable Oleghe, Efewongbe Primary Care Unavailable Oleghe, Efewongbe Referring Unavailable Oleghe, Efewongbe Attending Unavailable Oleghe, Efewongbe Attending Unavailable Oleghe, Efewongbe Primary Care Unavailable Oleghe, Efewongbe Referring Unavailable Oleghe, Efewongbe Primary Care Unavailable Zoe PALMA, Sid Referring Unavailable Sid Silva Attending Unavailable Oleghe, Efewongbe Primary Care Unavailable Facundo Garcia Attending Unavailable Allergies Allergy Classification Reported Allergen(s) Allergy Type Date of Onset Reaction(s) Facility Opioid Agonists (1 source) Codeine Drug Allergy 12-18-2023 [facility] (20 sources) Codeine; Translations: [codeine] Drug Allergy 12-18-2023 [facility] (1 source) Codeine Drug Allergy 02-10-2025 [facility] Medications Current Medications Medication Drug Class(es) Dates Sig (Normalized) Sig (Original) [id number] 200 actuat albuterol 0.09 mg/actuat metered dose inhaler (20 sources) beta2-Adrenergic Agonist Start: 06-14-2024 Albuterol Sulfate 90 mcg/actuation HFA aerosol inhaler Active 2 NMA INHALATION EVERY 6 HOURS as needed for shortness of breath or wheezing June 14, 2024 12:00am albuterol sulfat e 90 mcg/actuation breath activated powder inhaler Inhale as instructed. Active albuterol MDI (90 mcg/inh) CFC free inhalation aerosol (1 source) Start: 12-31-2023 take 1 puff(s) by inhalation every four hours as needed for wheezing albuterol MDI (90 mcg/inh) CFC free inhalation aerosol 1 puff(s), Inhalation, q4h, PRN as needed for wheezing, # 18 gram(s), 0 Refill(s) Start Date: 12/31/23 Status: Ordered Allergy Shot (1 source) Start: 05-13-2016 Allergy Shot Active Every Week May 13, 2016 10:30am Amitriptyline (1 source) Tricyclic Antidepressant Start: 12-30-2016 Amitriptyline Active December 30, 2016 11:16am aspirin 81 mg delayed release oral tablet (20 sources) Platelet Aggregation Inhibitor, Nonsteroidal Anti-inflammatory Drug Start: 06-14-2024 take 1 tablet by mouth once daily Aspirin (Adult Aspirin Regimen) 81 mg tablet,delayed release (DR/EC) Active 81 mg PO daily June 14, 2024 12:00am Start: 10-27-2023 End: 01-19-2025 take 1 tablet by mouth once daily aspirin 81 mg chewable tablet Take 1 tablet by mouth once daily. Patient should start on July 22, 2024. 07/22/2024 Active Start: 05-13-2016 Karsten Chewable Aspirin Active May 13, 2016 10:30am atorvastatin 40 mg oral tablet (20 sources) HMG-CoA Reductase Inhibitor Start: 10-27-2023 End: 01-19-2025 take 1 tablet by mouth once daily Atorvastatin (Lipitor) 40 mg tablet Active 40 mg PO daily June 14, 2024 12:00am azelastine hydrochloride 0.137 mg/actuat metered dose nasal spray (14 sources) Histamine-1 Receptor Antagonist Start: 01-22-2024 take 1 spray(s) nasal route twice daily azelastine 0.1% nasal spray Use 1 [place] in each nostril two times a day. 01/22/2024 Active biotin 5 mg oral capsule (5 sources) Start: 06-14-2024 take 1 capsule by mouth once daily Biotin 5 mg capsule Active 5 mg PO daily June 14, 2024 12:00am Start: 05-13-2016 Biotin Active May 13, 2016 10:30am 12 hr buPROPion hydrochloride 150 mg extended release oral tablet (1 source) Aminoketone Start: 04-15-2019 take 1 tablet by mouth twice daily buPROPion (WELLBUTRIN SR) 150 MG extended release tablet Indications: Reactive depression Take 1 tablet by mouth 2 times daily 60 tablet 5 04/15/2019 Active busPIRone hydrochloride 7.5 mg oral tablet (8 sources) Start: 12-10-2024 take 1 tablet by mouth twice daily busPIRone (BUSPAR) 7.5 mg tablet Take 7.5 mg by mouth two times a day. 01/20/2025 Active Start: 11-28-2024 End: 12-10-2024 take 1 tablet by mouth once daily Buspirone 7.5 mg tablet Discontinued 7.5 mg PO DAILY November 28, 2024 12:00am December 10, 2024 8:02am cholecalciferol 0.025 mg oral capsule (20 sources) Vitamin D Start: 06-14-2024 take 1 capsule by mouth once daily Cholecalciferol (Vitamin D3) 25 mcg (1,000 unit) capsule Active 25 ug PO daily June 14, 2024 12:00am Start: 09-03-2021 take 2000 [IU] by mo [facility] once daily Cholecalciferol [Vitamin D3] 2000 UNIT PO DAILY September 03, 2021 Active take 1 tablet by gretchen once daily cholecalciferol (VITAMIN D-3) 5,000 unit tab Take 5,000 Units by mouth once daily. Active cyclobenzaprine hydrochloride 10 mg oral tablet (20 sources) Muscle Relaxant Start: 01-20-2025 take 1 tablet by mouth once daily at bedtime cyclobenzaprine (FLEXERIL) 10 mg tablet Indications: Acute left-sided low back pain with left-sided sciatica Take 1 tablet by mouth daily at bedtime. 9 tablet 01/20/2025 Active Start: 10-25-2023 cyclobenzaprin e 10 mg oral tablet Dose : 10 mg = 1 tab(s), Oral, qDay, 0 Refill(s) Start Date: 10/25/23 Status: Ordered Start: 05-09-2023 End: 01-20-2025 take 1 tablet by mouth at bedtime Cyclobenzaprine 5 mg tablet Discontinued 5 mg PO AT BEDTIME November 28, 2024 12:00am December 15, 2024 8:33am Start: 07-12-2022 End: 05-04-2023 take 1 tablet by mouth once daily at bedtime cyclobenzaprine (FLEXERIL) 5 mg tablet Indications: muscle spasm Take 1 tablet by mouth daily at bedtime. 90 tablet 0 02/03/2023 05/04/2023 Active Comment on above: Take 1 tablet by [facility] daily at bedtime. DULoxetine 40 mg delayed release oral capsule (20 sources) Serotonin and Norepinephrine Reuptake Inhibitor Start: take 1 capsule by mouth twice daily Duloxetine 40 mg capsule,delayed release(DR/EC) Active 40 mg PO TWICE A DAY 180 January 18, 2025 11:29am Start: 07-29-2024 End: 01-18-2025 take 1 capsule by mouth twice daily Duloxetine 30 mg capsule,delayed release(DR/EC) Discontinued 30 mg PO TWICE A DAY 180 January 17, 2025 8:18pm January 18, 2025 11:29am Start: 06-14-2024 End: 07-15-2024 take 1 capsule by mouth twice daily Duloxetine 30 mg capsule,delayed release(DR/EC) Discontinued 30 mg PO TWICE A DAY 180 June 14, 2024 8:49am July 15, 2024 4:42pm Start: 05-04-2024 End: 06-14-2024 take 1 capsule by mouth once daily Duloxetine 30 mg capsule,delayed release(DR/EC) Discontinued 30 mg PO daily June 14, 2024 12:00am June 14, 2024 8:49am Start: 09-03-2021 take 30 mg by mouth twice daily Duloxetine Hcl [Cymbalta] 30 MG PO TWICE A DAY September 03, 2021 Active End: 12-18-2023 take 1 capsule by mouth once daily DULoxetine (CYMBALTA) 60 mg capsule Take 60 mg by mouth once daily. 0 12/18/2023 Discontinued Comment on above: Take 60 mg by mouth once daily. Hydrocodone/Acetamin ophen ([place] 5-325 Tablet) 1 EACH Tablet (1 source) Start: 01-03-2017 take 1 tablet by mouth every four hours Hydrocodone/Acetam inophen ([place] 5-325 Tablet) 1 EACH Tablet Active 1 EACH PO EVERY 4 HOURS 30 January 03, 2017 10:03am losartan potassium 25 mg oral tablet (4 sources) Angiotensin 2 Receptor Babatunde Start: 12-06-2024 take 1 tablet by mouth once daily Losartan 25 mg tablet Active 25 mg PO daily December 10, 2024 12:00am lysine 1000 mg oral tablet (20 sources) Start: 06-14-2024 take 1 tablet by mouth once daily Lysine 1,000 mg tablet Active 1000 mg PO daily June 14, 2024 12:00am Start: 09-03-2021 take 1000 mg by mout h once daily Lysine [L-Lysine] 1000 MG PO DAILY September 03, 2021 Active Start: 05-13-2016 Lysine Active May 13, 2016 10:30am Start: 05-07-2010 End: 07-12-2022 LYSINE 500 MG TAB Take one t ablet daily. 0 05/07/2010 07/12/2022 Discontinued (Course of therapy completed) LYSINE ORAL Take by mouth. Active LYSINE ORAL Take by mouth. 0 Active Comment on above: Take one tablet amanuel y. 24 hr metoprolol succinate 25 mg extended release oral tablet (20 sources) beta-Adrenergic Babatunde Start: 07-13-2024 take 1 tablet by mouth twice daily Metoprolol Succinate 25 mg tablet extended release 24 hr Active 25 mg PO TWICE A DAY July 13, 2024 1:00am Start: 10-27-2023 End: 01-25-2024 metoprolol succinate 25 mg o ral TABLET extended release Dose : 25 mg = 1 tab(s), Oral, BID, # 180 tab(s), 2 Refill(s), Pharmacy: [facility], 165, cm, 12/31/23 8:42:00 EDT, Height, kg, 12/31/23 8:42:00 EDT, Dosing Weight Start Date: 12/31/23 Status: Ordered Start: 10-27-2023 End: 10-27-2023 metoprolol succinate 25 mg o ral TABLET extended release Start: 10/27/23 10:34:00 AM EST, Dose = 12.5 mg, = 0.5 tab(s), Oral, give with food, 10/27/23 10:34:00 EST Start Date: 10/27/23 Stop Date: 10/27/23 Status: Completed Start: 05-13-2016 metoprolol suc cinate ER (TOPROL XL) 50 mg 24 hr tablet 05/13/2016 Active Start: 05-13-2016 take 1 tablet by gretchen th once daily metoprolol succinate (TOPROL XL) 50 MG extended release tablet Indications: Tachycardia Take 1 tablet by mouth daily 30 tablet 5 04/15/2019 Active montelukast 10 mg oral tablet (20 sources) Leukotriene Receptor Antagonist Start: 08-26-2024 End: 12-10-2024 take 1 tablet by mouth once daily Montelukast 10 mg tablet Active 10 mg PO daily December 10, 2024 7:58am Start: 09-03-2021 End: 07-13-2024 take 1 tablet by mouth once daily Montelukast 10 mg tablet Discontinued 10 mg PO daily June 14, 2024 12:00am July 13, 2024 2:16pm Start: 04-15-2019 take 1 tablet by gretchen th once daily montelukast (SINGULAIR) 10 MG tablet Indications: Non-seasonal allergic rhinitis, unspecified trigger Take 1 tablet by mouth nightly 30 tablet 5 04/15/2019 Active Start: 05-13-2016 Singulair Acti ve May 13, 2016 10:30am Comment on above: Take 1 tablet by gretchen th daily at bedtime. 24 hr nicotine 0.583 mg/hr transdermal system (15 sources) Cholinergic Nicotinic Agonist Start: apply 1 dose transdermal route once daily nicotine (NICODERM) 14 mg/24 hr Apply 1 Patch as directed once daily for 21 days. 21 Patch 07/22/2024 Active Start: 12-18-2023 End: 04-08-2024 apply 1 dose transdermal route every twenty-four hours nicotine (NICODERM CQ) 14 mg/24 hr Apply 1 Patch as directed every 24 hours. 30 Patch 2 12/18/2023 04/08/2024 Discontinued (Course of therapy completed) nitrofurantoin, macrocrystals 25 mg / nitrofurantoin, monohydrate 75 mg oral capsule (2 sources) Nitrofuran Antibacterial Start: 12-26-2023 End: 01-02-2024 take 1 capsule by mouth twice daily nitrofurantoin monohydrate and macrocrystal (MACROBID) 100 mg capsule Take 1 capsule by mouth two times a day for 7 days. For 7 days 14 capsule 0 12/26/2023 01/02/2024 Active predniSONE 10 mg oral tablet (5 sources) Start: 01-20-2025 End: 01-29-2025 predniSONE (DELTASONE) 10 mg tablet Indications: Acute left-sided low back pain with left-sided sciatica Take 4 tabs daily for 3 days, then 2 tabs daily for 3 days, then 1 tab daily for 3 days with food. 21 tablet 01/20/2025 01/29/2025 Active Start: 11-15-2024 End: 11-28-2024 take 4 tablets by mouth once daily, then take 3 tablets by mouth once daily, then take 2 tablets by mouth once daily, then take 1 tablet by mouth once daily Prednisone 10 mg tablet Discontinued 10 mg PO DAILY November 15, 2024 12:00am November 28, 2024 6:07pm 4 tablets daily x3 days, then 3 tablets daily x3 days, then 2 tablets daily x3 days, then 1 tablet daily x3 days Probiotic (1 source) Start: 12-31-2023 Probiotic 0 Re fill(s) Start Date: 12/31/23 Status: Ordered sodium fluoride 0.011 mg/mg toothpaste (13 sources) Start: 11-27-2023 sodium fluorid e (PREVIDENT 5000 PLUS) 1.1 % dental cream USE AT BEDTIME 11/27/2023 Active valACYclovir 1000 mg oral tablet (7 sources) Herpesvirus Nucleoside Analog DNA Polymerase Inhibitor, Herpes Simplex Virus Nucleoside Analog DNA Polymerase Inhibitor, Herpes Zoster Virus Nucleoside Analog DNA Polymerase Inhibitor Start: 11-15-2024 End: 12-10-2024 Valacyclovir 1 gram tablet Active 1000 mg PO THREE TIMES A DAY December 10, 2024 7:58am Vitamin B Complex 100 (1 source) Start: 12-31-2023 Vitamin B Comp akilee 100 0 Refill(s) Start Date: 12/31/23 Status: Ordered vitamin b12 0.5 mg oral tablet (20 sources) Vitamin B12 Start: 05-13-2016 cyanocobalamin (VITAMIN B-12) 500 mcg tablet Take by mouth. 05/13/2016 Active Start: 05-13-2016 Vitamin B-12 A ctive May 13, 2016 10:30am Vitamin D (1 source) Start: 05-13-2016 Vitamin D Acti ve May 13, 2016 10:30am Vitamin D and K oral tablet (1 source) Start: 12-31-2023 Vitamin D and K oral tablet 0 Refill(s) Start Date: 12/31/23 Status: Ordered zafirlukast 20 mg oral tablet (4 sources) Leukotriene Receptor Antagonist Start: 07-12-2022 End: 01-08-2023 take 1 tablet by mouth twice daily zafirlukast (ACCOLATE) 20 mg tablet Indications: Seasonal allergic rhinitis due to pollen Take 1 tablet by mouth twice daily. 60 tablet 5 07/12/2022 10/17/2022 Discontinued (Course of therapy completed) Comment on above: Take 1 tablet by gretchen twice daily. Completed/Discontinued Medications Medication Drug Class(es) Dates Sig (Normalized) Sig (Original) 5-HYDROXYTRYPTOPH AN (5-HTP ORAL) (1 source) End: 07-12-2022 5-HYDROXYTRYPTOPHAN (5-HTP ORAL) Take 50 mg by mouth. 0 07/12/2022 Discontinued (Course of therapy completed) Comment on above: Take 50 mg by mouth. acyclovir 400 mg oral tablet (17 sources) Herpesvirus Nucleoside Analog DNA Polymerase Inhibitor, Herpes Simplex Virus Nucleoside Analog DNA Polymerase Inhibitor, Herpes Zoster Virus Nucleoside Analog DNA Polymerase Inhibitor Start: 06-14-2024 End: 07-15-2024 take 1 tablet by mouth once daily as needed Acyclovir 400 mg tablet Discontinued 400 mg PO daily as needed for cold sores June 14, 2024 12:00am July 15, 2024 4:41pm Start: 10-11-2019 take 1 tablet by gretchen th twice daily as needed acyclovir (ZOVIRAX) 400 MG tablet Indications: Herpes labialis Take 1 tablet by mouth 2 times daily Use as needed for cold sores 60 tablet 5 10/11/2019 Active ascorbic acid 500 mg oral tablet (8 sources) Vitamin C Start: 09-03-2021 take 500 mg by mouth once daily Ascorbic Acid [Vitamin C] 500 MG PO DAILY September 03, 2021 Active atenolol 25 mg oral tablet (1 source) beta-Adrenergic Babatunde Start: 10-13-2007 End: 07-12-2022 ATENOLOL 25 MG TAB Take one(1) tablet daily. 0 10/13/2007 07/12/2022 Discontinued (Course of therapy completed) Comment on above: Take one(1) tablet d azelastino (4 sources) Start: 06-14-2024 End: 07-13-2024 azelastino Discontinued .Route June 14, 2024 12:00am July 13, 2024 2:11pm 137mcg 1% benzonatate 100 mg oral capsule (6 sources) Non-narcotic Antitussive Start: 07-30-2022 take 100 mg by mouth three times daily as needed Benzonatate [Tessalon] 100 MG PO THREE TIMES A DAY PRN July 30, 2022 Active onabotulinumtoxina 200 unt injection (2 sources) Acetylcholine Release Inhibitor Start: 06-15-2024 End: 06-15-2024 onabotulinum toxin type A 200 Units injection (BOTOX) Start: 06-15-2024 End: 06-15-2024 200 Units, INTRADERMAL, ONCE , 1 dose, On Fri06/15/24 at 1630, This record documents the total dose provided to patient. See progress note for specific locations and amounts administered. cefuroxime 500 mg oral tablet (5 sources) Cephalosporin Antibacterial Start: 02-09-2024 End: 02-14-2024 take 1 tablet by mouth twice daily cefUROXime (CEFTIN) 500 mg tablet Take 1 tablet by mouth two times a day for 5 days. 10 tablet 02/09/2024 02/14/2024 Start: 12-24-2023 End: 12-31-2023 take 1 tablet by mouth twice daily cefUROXime (CEFTIN) 500 mg tablet Take 1 tablet by mouth two times a day for 7 days. 14 tablet 0 12/24/2023 12/31/2023 Active chlorhexidine gluconate 1.2 mg/ml mouthwash (3 sources) Start: 11-27-2023 End: 04-08-2024 Chlorhexidine Gluconate (PERIDEX) 0.12 % solution SWISH AND SPIT 1/2 OUNCE FOR 30 SECONDS AFTER BREAKFAST AND BEFORE BEDTIME.DO NOT SWALLOW 0 11/27/2023 04/08/2024 Discontinued (Course of therapy completed) COMPOUNDED PRESCRIPTION (1 source) Start: 05-07-2010 End: 07-12-2022 COMPOUNDED PRESCRIPTION Allergy Injections Weekly through Dr. Watkins. 0 05/07/2010 07/12/2022 Discontinued (Course of therapy completed) Comment on above: Allergy Injections W eekly through Dr. Watkins. DAILY MULTIVITAMIN ORAL (1 source) End: 07-12-2022 DAILY MULTIVITAMIN ORAL Take by mouth once daily. 0 07/12/2022 Discontinued (Course of therapy completed) Comment on above: Take by mouth once d aily. diazePAM 5 mg oral tablet (5 sources) Benzodiazepine Start: 08-12-2022 End: 12-18-2023 take 1 tablet by mouth at bedtime as needed for anxiety diazePAM (VALIUM) 5 mg tablet TAKE 1 TABLET BY MOUTH AT BEDTIME NEEDED FOR ANXIETY OR SLEEP 0 08/12/2022 12/18/2023 Discontinued Comment on above: TAKE 1 TABLET BY AT BEDTIME NEEDED FOR ANXIETY OR SLEEP diclofenac sodium 0.01 mg/mg topical gel (17 sources) Nonsteroidal Anti-inflammatory Drug Start: 06-14-2024 End: 07-13-2024 apply 2 g topically once Diclofenac Sodium 1 % gel Discontinued 2 g TOPICAL ONCE June 14, 2024 12:00am July 13, 2024 2:14pm apply to single elbow, wrist or hand; for hand includes palm/fingers/back of hand Start: 12-08-2023 VOLTAREN ARTHR ITIS PAIN 1 % topical gel 12/08/2023 Active ERGOCALCIFEROL, VITAMIN D2, (VITAMIN D ORAL) (1 source) End: 07-12-2022 take 1000 [IU] by mouth once ERGOCALCIFEROL, VITAMIN D2, (VITAMIN D ORAL) Take 1,000 Units/mL by mouth. 0 07/12/2022 Discontinued (Course of therapy completed) Comment on above: Take 1,000 Units/mL by mouth. ferrous sulfate 325 mg oral tablet (4 sources) Start: 07-29-2024 End: 11-28-2024 take 1 tablet by mouth once daily Ferrous Sulfate (Feosol) 325 mg (65 mg iron) tablet Discontinued 325 mg PO daily July 29, 2024 1:00am November 28, 2024 6:06pm fluticasone propionate 0.05 mg/actuat metered dose nasal spray (20 sources) Corticosteroid Start: 06-14-2024 End: 12-23-2024 take 50 ug nasal route once daily Fluticasone Propionate (Flonase Allergy Relief) 50 mcg/actuation spray,suspension Discontinued 1 NMA INTRANASAL daily December 15, 2024 8:33am December 23, 2024 1:34pm administer into each nostril Start: 12-31-2023 take 50 ug nasal rou te twice daily Flonase 50 mcg/inh nasal spray 50 mcg Dose = 1 spray(s), Nostril, each, BID, 0 Refill(s) Start Date: 12/31/23 Status: Ordered Start: 10-17-2022 End: 05-05-2023 take 2 spray(s) nasal route once daily fluticasone (FLONASE) 50 mcg/actuation nasal spray Use 2 Sprays in each nostril once daily. 3 Each 0 11/06/2022 05/05/2023 Active Start: 10-11-2019 fluticasone (F LONASE) 50 MCG/ACT nasal spray 2 sprays by Nasal route daily 1 Bottle 5 10/11/2019 Active Start: 05-13-2016 Flonase Active May 13, 2016 10:30am fluticasone prop ionate (FLONASE NASAL) Use in the nose. Active fluticasone prop ionate (FLONASE NASAL) Use in the nose. 0 Active Comment on above: Use 2 Sprays in each nostril once daily. folic acid 1 mg oral tablet (8 sources) Start: 2 take 1 mg by mouth once daily Folic Acid 1 MG PO DAILY September 03, 2021 Active ketoconazole 20 mg/ml topical foam (18 sources) Azole Antifungal Start: 4 End: 4 Ketoconazole 2 % foam Discontinued 1 NMA TOPICAL TWICE A DAY June 14, 2024 12:00am July 13, 2024 2:14pm Start: 03-02-2024 ketoconazole ( NIZORAL) 2 % cream APPLY TOPICALLY TO THE AFFECTED AREA DAILY 03/02/2024 Active Lactobac no.41/Bifidobact no .7 (PROBIOTIC-10 ORAL) (14 sources) End: 04-08-2024 Lactobac no.41/Bifidobact no .7 (PROBIOTIC-10 ORAL) Take by mouth. 04/08/2024 Discontinued (Course of therapy completed) End: 04-08-2024 Lactobac no.41/Bifidobact no .7 (PROBIOTIC-10 ORAL) Take by mouth. 0 04/08/2024 Discontinued (Course of therapy completed) Lactobac no.41/B ifidobact no.7 (PROBIOTIC-10 ORAL) Take by mouth. 0 Active lactobacillus acidophilus [id number] unt oral capsule (8 sources) Start: 09-03-2021 take 1 capsule by mouth once daily Lactobacillus [Probiotic] 1 CAP PO DAILY September 03, 2021 Active Lavender (Lavandula Angustifol (4 sources) Start: 09-03-2021 take 80 mg by mouth once daily Lavender (Lavandula Angustifol 80 MG PO DAILY September 03, 2021 Active Lavender (Lavandula Angustifol [Lavela Ws 1265] (4 sources) Start: 09-03-2021 take 80 mg by mouth once daily Lavender (Lavandula Angustifol [Lavela Ws 1265] 80 MG PO DAILY September 03, 2021 Active Magnesium (12 sources) Start: 08-06-2024 End: 08-09-2024 take 2 tablets by mouth twice daily Magnesium 200 mg tablet Discontinued 400 mg PO TWICE A DAY 180 August 06, 2024 11:37am August 09, 2024 9:29am Start: 06-14-2024 End: 08-06-2024 take 2 tablets by mouth twice daily Magnesium 200 mg tablet Discontinued 400 mg PO TWICE A DAY June 14, 2024 8:52am August 06, 2024 11:38am Start: 06-14-2024 End: 06-14-2024 take 1 tablet by mouth once daily Magnesium 200 mg tablet Discontinued 200 mg PO daily June 14, 2024 12:00am June 14, 2024 8:52am magnesium oxide 400 mg oral tablet (20 sources) Start: 10-25-2023 magnesium oxid e 400 mg oral capsule Dose : 400 mg = 1 cap(s), Oral, BID, # 75 cap(s), 0 Refill(s) Start Date: 10/25/23 Status: Ordered Start: 09-03-2021 End: 12-10-2024 take 1 tablet by mouth twice daily Magnesium Oxide 400 mg magnesium tablet Discontinued 400 mg PO TWICE A DAY 180 August 09, 2024 1:00am December 10, 2024 8:02am Start: 10-11-2019 take 1 tablet by gretchen th twice daily magnesium oxide (MAG-OX) 400 MG tablet Indications: Fibromyalgia Take 1 tablet by mouth 2 times daily 60 tablet 5 10/11/2019 Active Start: 12-30-2016 Magnesium Oxid e Active December 30, 2016 11:16am Comment on above: Take 1 tablet by gretchen th twice daily. MEDICATION, NON-DATABASE (1 source) End: 2 MEDICATION, NON-DATABASE fibrocare 0 07/12/2022 Discontinued (Course of therapy completed) Comment on above: fibrocare meloxicam 15 mg oral tablet (14 sources) Nonsteroidal Anti-inflammatory Drug Start: 2 End: take 15 mg by mouth once daily Meloxicam 15 MG PO DAILY September 03, 2021 Active Start: 10-11-2019 End: 01-09-2020 take 1 tablet by mouth once daily meloxicam (MOBIC) 15 MG tablet Take 1 tablet by mouth daily 90 tablet 3 10/11/2019 01/09/2020 Active Comment on above: Take 15 mg by mouth once daily. nitrofurantoin, macrocrystals 100 mg oral capsule (1 source) Nitrofuran Antibacterial Start: 12-31-19 End: 01-06-20 nitrofurantoin macrocrystals 100 mg oral capsule Dose : 100 mg = 1 cap(s), Oral, QID, # 28 cap(s), 0 Refill(s), 50 Start Date: 12/31/23 Stop Date: 01/06/24 Status: Ordered No home medication information (20 sources) omeprazole 20 mg delayed release oral capsule (15 sources) Proton Pump Inhibitor Start: 05-13-20 End: 12-18-19 take 20 mg by mouth once daily Omeprazole 20 MG PO DAILY September 03, 2021 Active Start: 05-13-2016 Omeprazole Act moni May 13, 2016 10:28am Comment on above: Take 20 mg by mouth once daily. Oxycodone Hcl/Acetaminophen (Percocet 7.5-325 Mg Tablet) 1 EACH Tablet (1 source) Start: 6 End: 7 take 1 tablet by mouth every six hours Oxycodone Hcl/Acetaminophen (Percocet 7.5-325 Mg Tablet) 1 EACH Tablet Discontinued 1 EACH PO Q6H 45 May 17, 2016 12:13pm December 30, 2016 11:16am pantoprazole 40 mg delayed release oral tablet (9 sources) Proton Pump Inhibitor Start: 4 End: 5 take 1 tablet by mouth twice daily Pantoprazole 40 mg tablet,delayed release (DR/EC) Discontinued 40 mg PO TWICE A DAY 180 August 09, 2024 9:29am November 28, 2024 6:07pm pregabalin 50 mg oral capsule (20 sources) Start: 4 End: 4 take 1 capsule by mouth three times daily Pregabalin 50 mg capsule Discontinued 50 mg PO THREE TIMES A DAY July 13, 2024 1:00am July 15, 2024 4:42pm Start: 10-25-2023 Lyrica 150 mg oral capsule Dose : 150 mg = 1 cap(s), Oral, qDay, # 60 cap(s), 0 Refill(s), 45.9 Start Date: 10/25/23 Status: Ordered 24 hr propranolol hydrochloride 60 mg extended release oral capsule (5 sources) beta-Adrenergic Babatunde Start: 10-14-2022 End: 12-18-2023 take 1 capsule by mouth once daily propranolol ER (INDERAL LA) 60 mg 24 hr capsule Take 60 mg by mouth once daily. 0 10/14/2022 12/18/2023 Discontinued Comment on above: Take 60 mg by mouth once daily. 12 hr pseudoephedrine hydrochloride 120 mg extended release oral tablet (6 sources) alpha-Adrenergic Agonist Start: 07-30-2022 take 120 mg by mouth every twelve hours as needed Pseudoephedrine Hcl Sa [Sudafed 12 Hour] 120 MG PO EVERY 12 HOURS PRN July 30, 2022 Active sertraline 50 mg oral tablet (20 sources) Serotonin Reuptake Inhibitor Start: 06-14-2024 End: 06-14-2024 take 1 tablet by mouth once daily Sertraline 50 mg tablet Discontinued 50 mg PO daily June 14, 2024 12:00am June 14, 2024 8:49am Start: 10-25-2023 sertraline 100 mg oral tablet Dose : 100 mg = 1 tab(s), Oral, BID, # 30 tab(s), 0 Refill(s) Start Date: 10/25/23 Status: Ordered take 1 tablet by [facility] three times daily sertraline (ZOLOFT) 50 mg tablet Take 50 mg by mouth three times a day. Active ticagrelor 90 mg oral tablet (20 sources) Start: 10-27-2023 End: 01-19-2025 take 1 tablet by mouth twice daily Ticagrelor (Brilinta) 90 mg tablet Discontinued 90 mg PO TWICE A DAY June 14, 2024 12:00am December 10, 2024 7:34am topiramate 50 mg oral tablet (15 sources) Start: 09-03-2021 take 50 mg by mouth once daily Topiramate 50 MG PO DAILY September 03, 2021 Active Start: 12-30-2016 End: 12-18-2023 take 1 tablet by mouth twice daily topiramate (TOPAMAX) 50 mg tablet Take 1 tablet by mouth twice daily. 0 12/30/2016 12/18/2023 Discontinued Start: 12-30-2016 Topamax Active December 30, 2016 11:16am Comment on above: Take 1 tablet by gretchen th twice daily. traMADol (14 sources) Opioid Agonist Start: 05-13-2016 End: 12-30-2016 Tramadol Discontinued Twice A Day May 13, 2016 10:28am December 30, 2016 11:16am End: 07-12-2022 traMADol (ULTRAM) 50 mg tabl et Active Comment on above: Take 50 mg by mouth PRN(ND). triamcinolone acetonide 0.055 mg/actuat metered dose nasal spray (8 sources) Corticosteroid Start: 09-03-19 Triamcinolone Acetonide (Nasal [Nasacort Allergy 24hr] 55 MCG NA DAILY PRN September 03, 2021 Active Zinc (8 sources) Start: 09-03-19 take 25 mg by mouth once daily Zinc 25 MG PO DAILY September 03, 2021 Active Problems Active Problems Problem Classification Problem Date Documented Date Episodic/Chronic Acute and unspecified renal failure (1 source) Prerenal azotemia; Translations: [Unspecified kidney failure] Onset: 4 07-16-2024 Chronic Acute myocardial infarction (4 sources) Myocardial infarction; Translations: [ST elevation (STEMI) myocardial infarction of unspecified site] Chronic Anxiety disorders (11 sources) Anxiety disorder; Translations: [Anxiety disorder, unspecified] Onset: 4 Chronic Comment on above: stable, in counselin g. meds per PCP Cardiac dysrhythmias (4 sources) ECG: sinus tachycardia; Translations: [Tachycardia, unspecified] 07-24-2024 Episodic Chronic obstructive pulmonary disease and bronchiectasis (1 source) Chronic obstructive lung disease; Translations: [Chronic obstructive pulmonary disease, unspecified] Chronic Coma; stupor; and brain damage (6 sources) Daytime somnolence; Translations: [Somnolence] Onset: 4 04-08-2024 Episodic Complications of surgical procedures or medical care (3 sources) Other reaction to spinal and lumbar puncture; Translations: [Low blood pressure] Onset: 6 Episodic Conditions associated with dizziness or vertigo (1 source) Dizziness and giddiness; Translations: [Dizziness and giddiness] 03-30-2024 Episodic Coronary atherosclerosis and other heart disease (13 sources) Coronary atherosclerosis; Translations: [Atherosclerotic heart disease of [place] coronary artery without angina pectoris] Onset: 4 Chronic Deficiency and other anemia (1 source) Anemia, unspecified; Translations: [Anemia, unspecified type] Onset: 4 Episodic Deficiency and other anemia (4 sources) Anemia; Translations: [Anemia, unspecified] 08-07-2024 Episodic Disorders of lipid metabolism (3 sources) Hyperlipidemia; Translations: [Hyperlipidemia, unspecified] Onset: 5 Chronic Epilepsy; convulsions (5 sources) Other generalized epilepsy and epileptic syndromes, not intractable, without status epilepticus; Translations: [Generalized tonic-clonic seizure] Onset: 4 07-24-2024 Chronic Esophageal disorders (3 sources) Gastroesophageal reflux disease; Translations: [Gastro-esophageal reflux disease without esophagitis] 12-10-2024 Chronic Essential hypertension (2 sources) Hypertensive disorder; Translations: [Essential (primary) hypertension] Onset: 5 11-05-2023 Chronic Fluid and electrolyte disorders (6 sources) Lactic acidosis; Translations: [Lactic acidosis] Onset: 4 07-24-2024 Episodic Gastritis and duodenitis (8 sources) Gastritis; Translations: [Gastritis, unspecified, without bleeding] 07-29-2024 Episodic Gastrointestinal hemorrhage (1 source) Gastrointestinal hemorrhage; Translations: [Chronic or unspecified duodenal ulcer with hemorrhage] Onset: 4 07-21-2024 Chronic Headache; including migraine (8 sources) Refractory migraine without aura; Translations: [Migraine without aura, intractable, without status migrainosus] Onset: 4 05-04-2024 Chronic Heart valve disorders (1 source) Nonrheumatic mitral (valve) insufficiency; Translations: [Nonrheumatic mitral (valve) insufficiency] Onset: 5 Chronic Influenza (3 sources) Influenza due to Influenza A virus; Translations: [Influenza due to other identified influenza virus with other respiratory manifestations] Episodic Malaise and fatigue (9 sources) Fatigue; Translations: [Other fatigue] Onset: 5 04-16-2024 Episodic Menopausal disorders (1 source) Atrophic vaginitis; Translations: [Postmenopausal atrophic vaginitis] 01-19-2025 Chronic Mood disorders (3 sources) Reactive depression (situational); Translations: [Severe major depression, single episode, without psychotic features] Onset: 0 10-11-2019 Chronic Mood disorders (1 source) Mood disorders; Translations: [Depression, unspecified] Onset: 4 Nonspecific chest pain (3 sources) Chest wall pain; Translations: [Other chest pain] Onset: 5 Episodic Other aftercare (1 source) Other fdc (current) drug therapy; Translations: [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 therapy] Onset: 4 Episodic Other circulatory disease (4 sources) Low blood pressure; Translations: [Hypotension, unspecified] 07-24-2024 Episodic Other connective tissue disease (20 sources) Fibromyalgia; Translations: [Fibromyalgia] Onset: 2 10-11-2019 Episodic Other connective tissue disease (2 sources) H/O: musculoskeletal disease; Translations: [Personal history of other diseases of the musculoskeletal system and connective tissue] Episodic Other connective tissue disease (1 source) Bursitis of right foot; Translations: [Bursitis of right foot] Onset: 9 05-13-2019 Other diseases of bladder and urethra (2 sources) Hypertrophy of bladder; Translations: [Other specified disorders of bladder] 12-24-2023 Chronic Other diseases of bladder and urethra (1 source) Other specified disorders of bladder; Translations: [Bladder wall thickening] Onset: 4 Chronic Other ear and sense organ disorders (1 source) Sensorineural hearing loss, bilateral; Translations: [Sensorineural hearing loss, bilateral] 03-30-2024 Chronic Other ear and sense organ disorders (1 source) Ear sensations - finding; Translations: [Other specified disorders of ear, bilateral] 03-30-2024 Episodic Other gastrointestinal disorders (1 source) Retroperitoneal hematoma; Translations: [Retroperitoneal hematoma] Episodic Other injuries and conditions due to external causes (4 sources) Injury of head; Translations: [Unspecified injury of head, initial encounter] Episodic Other nervous system disorders (4 sources) Demyelinating disease of central nervous system, unspecified; Translations: [Demyelinating disease of central nervous system, unspecified] Onset: 6 Chronic Other nervous system disorders (4 sources) Disorder of brain; Translations: [Encephalopathy, unspecified] 07-24-2024 Chronic Other nervous system disorders (1 source) Other chronic pain; Translations: [Other chronic pain] Onset: 5 Chronic Other non-traumatic joint disorders (1 source) Swelling of first metatarsal joint of hallux of right foot; Translations: [Swelling of first metatarsophalangeal (MTP) joint of right foot] Onset: 9 05-13-2019 Other nutritional; endocrine; and metabolic disorders (3 sources) Hypomagnesemia; Translations: [Hypomagnesemia] 12-10-2024 Chronic Other nutritional; endocrine; and metabolic disorders (1 source) Hypomagnesemia; Translations: [Hypomagnesemia] Onset: 5 Chronic Other screening for suspected conditions (not mental disorders or infectious disease) (14 sources) Patient encounter status; Translations: [Encounter for screening for malignant neoplasm of respiratory organs] Onset: 4 01-23-2024 Episodic Other upper respiratory disease (20 sources) Allergic rhinitis due to pollen; Translations: [Allergic rhinitis due to pollen] Onset: 2 Chronic Other upper respiratory disease (3 sources) Nasal congestion; Translations: [Nasal congestion] Episodic Other upper respiratory infections (3 sources) Chronic sinusitis; Translations: [Chronic sinusitis, unspecified] Onset: 4 03-30-2024 Chronic Other upper respiratory infections (3 sources) Viral upper respiratory tract infection; Translations: [Acute upper respiratory infection, unspecified] Episodic Otitis media and related conditions (1 source) Dysfunction of bilateral eustachian tubes; Translations: [Unspecified Eustachian tube disorder, bilateral] 03-30-2024 Episodic Syl-; endo-; and myocarditis; cardiomyopathy (except that caused by tuberculosis or sexually transmitted disease) (3 sources) Cardiomyopathy; Translations: [Cardiomyopathy, unspecified] Onset: 5 Chronic Residual codes; unclassified (2 sources) Obstructive sleep apnea syndrome; Translations: [Obstructive sleep apnea (adult) (pediatric)] 01-08-2024 Chronic Residual codes; unclassified (2 sources) Hypersomnia; Translations: [Hypersomnia, unspecified] 07-05-2024 Chronic Residual codes; unclassified (1 source) Hypersomnia, unspecified; Translations: [Hypersomnia] Onset: 4 Chronic Residual codes; unclassified (1 source) Obstructive sleep apnea (adult) (pediatric); Translations: [ABBY (obstructive sleep apnea)] Onset: 4 Chronic Residual codes; unclassified (5 sources) Tobacco user; Translations: [Tobacco use] Episodic Residual codes; unclassified (1 source) Sleep disorder; Translations: [Sleep disorder, unspecified] 12-18-2023 Episodic Residual codes; unclassified (1 source) Procedure not done; Translations: [Procedure and treatment not carried out, unspecified reason] 03-11-2024 Episodic Residual codes; unclassified (2 sources) At risk of sleep impairment; Translations: [Other specified personal risk factors, not elsewhere classified] 04-08-2024 Episodic Screening and history of mental health and substance abuse codes (5 sources) H/O: attempted suicide; Translations: [History of suicide attempt] Onset: 4 11-24-2024 Episodic Comment on above: 06/2024 Spondylosis; intervertebral disc disorders; other back problems (20 sources) Chronic pain; Translations: [Cervicalgia] Onset: 2 Episodic Sprains and strains (5 sources) Strain of neck muscle; Translations: [Strain of muscle, fascia and tendon at neck level, initial encounter] Onset: 3 Episodic Substance-related disorders (6 sources) Tobacco user; Translations: [Nicotine dependence, unspecified, uncomplicated] Onset: 4 12-18-2023 Chronic Suicide and intentional self-inflicted injury (11 sources) Poisoning by unspecified drugs, medicaments and biological substances, intentional self-harm, initial encounter; Translations: [Intentional overdose] Onset: 4 07-24-2024 Episodic Unclassified (17 sources) Onset: 6 Unclassified (1 source) Facial pain; Translations: [Facial pain] Onset: 4 Unclassified (2 sources) M54.50 - Low back pain, unspecified,G89.29 - Other chronic pain Unclassified (1 source) Low back pain, unspecified; Translations: [Low back pain, unspecified] Onset: 5 Unclassified (1 source) Unspecified toxic encephalopathy; Translations: [Unspecified toxic encephalopathy] Onset: 4 Viral infection (12 sources) Herpes labialis; Translations: [Herpes zoster] Onset: 0 10-11-2019 Episodic Comment on above: valtrex prn Past or Other Problems Problem Classification Problem Date Documented Da te Episodic/Chronic Abdominal pain (3 sources) Abdominal pain; Translations: [Epigastric pain] Onset: 4 Episodic Acute posthemorrhagic anemia (1 source) Acute posthemorrhagic anemia; Translations: [Acute posthemorrhagic anemia] Onset: 4 07-19-2024 Episodic Complication of device; implant or graft (3 sources) Retroperitoneal hemorrhage; Translations: [Hemorrhage due to cardiac prosthetic devices, implants and grafts, sequela] Onset: 4 12-24-2023 Episodic Coronary atherosclerosis and other heart disease (1 source) Presence of coronary angioplasty implant and graft; Translations: [Presence of coronary angioplasty implant and graft] Onset: 4 Episodic Diabetes mellitus without complication (1 source) Hyperglycemia; Translations: [Hyperglycemia, unspecified] Onset: 4 07-16-2024 Episodic Gastrointestinal hemorrhage (4 sources) Gastrointestinal hemorrhage, unspecified; Translations: [Hematemesis] Onset: 4 07-16-2024 Episodic Genitourinary symptoms and ill-defined conditions (3 sources) Urgent desire to urinate; Translations: [Urgency of urination] Onset: 4 12-24-2023 Episodic Headache, including migraine (20 sources) Headache; Translations: [Headache] Onset: 6 10-11-2019 Episodic Nausea and vomiting (1 source) Nausea; Translations: [Nausea] Onset: 4 Episodic Other aftercare (1 source) Encounter for surgical aftercare following surgery on the circulatory system; Translations: [Encounter for surgical aftercare following surgery on the circulatory system] Onset: 4 Episodic Other aftercare (1 source) Long-term current use of anticoagulant; Translations: [prison (current) use of anticoagulants] Onset: 4 07-16-2024 Episodic Other circulatory disease (3 sources) H/O: hypertension; Translations: [Personal history of other diseases of the circulatory system] Onset: 4 07-16-2024 Episodic Other circulatory disease (1 source) Hypotension, unspecified; Translations: [Hypotension, unspecified] Onset: 4 Episodic Other connective tissue disease (1 source) Fibromyalgia; Translations: [Fibromyalgia] Onset: 4 Episodic Other female genital disorders (20 sources) Dysplasia of cervix; Translations: [Dysplasia of cervix uteri, unspecified] Onset: 0 02-01-2010 Episodic Other lower respiratory disease (1 source) Pleurodynia; Translations: [Pleurodynia] Onset: 4 Episodic Other lower respiratory disease (1 source) Pneumonitis; Translations: [Other disorders of lung] Onset: 4 07-16-2024 Episodic Residual codes; unclassified (1 source) Other specified personal risk factors, not elsewhere classified; Translations: [At risk for narcolepsy] Onset: 4 Episodic Residual codes; unclassified (1 source) Tobacco use; Translations: [Tobacco use current] Onset: 4 Episodic Residual codes; unclassified (1 source) Mental state finding; Translations: [Altered mental status, unspecified] Onset: 4 07-16-2024 Episodic Septicemia (except in labor) (1 source) Sepsis; Translations: [Sepsis, unspecified organism] Onset: 4 Resolved: 4 07-21-2024 Episodic Urinary tract infections (3 sources) Recurrent urinary tract infection; Translations: [Urinary tract infection, site not specified] Onset: 4 12-24-2023 Episodic Results Test Name Value Interpretation Reference Range Facility Internal Medicine Office Vis shikha 02-10-2025 Internal Medicine Office Visit [facility] [address] [facility] [place], [place] [address] OFFICE VISIT Date of Service: 02/10/25 MR#: [id number] Acct: [id number] Name: HOLDEN CHILDERS Rep #: [id number] : 1970 Provider: MINERVA Hanson Age/Sex: 54/F Location: [facility] [place] Status: Signed Intake Vital Signs 01/19/25 08:52 02/10/25 12:27 Height 5 ft 5 in 5 ft 5 in Weight: 133 lb BMI 22.1 BP 108/64 Blood Pressure Location Rt brachial Position Sitting Respiration 16 Pulse 78 Pulse Source Monitor Temp 96.4 F L Temp Source Temporal Pulse Oximetry (%) 98 Oxygen Delivery Method room air Intake Visit Reasons: ACUTE LOWER BACK PAIN Chief Complaint: backpain Project Director Required: No Accompanied by: Self Is patient in pain?: Yes (lower back pain worse in morning) Pain scale (1-10): 6 Allergies codeine Allergy (Intermediate, Verified 02/10/25 12:23) Vomiting Medications ???Medication ???Instructions ???Recorded ???Confirmed ???Type albuterol sulfate 90 mcg/actuation 2 puff inhalation Q6H PRN 02/10/25 History aerosol inhaler shortness of breath or wheezing aspirin 81 mg tablet,delayed 81 mg PO QDAY heart health 4 02/10/25 History release (Adult Aspirin Regimen) atorvastatin 40 mg tablet (Lipitor) 40 mg PO QDAY cholesterol 06/1402/10/25 History biotin 5 mg capsule 5 mg PO QDAY supplement 06/14/24 0 02/10/25 History cholecalciferol (vitamin D3) 25 25 mcg PO QDAY supplement 06/14/24 02/10/25 History mcg (1,000 unit) capsule lysine 1,000 mg tablet 1,000 mg PO QDAY cold sore 4 02/10/25 History metoprolol succinate 25 mg 25 mg PO BID blood pressure 02/10/25 History tablet,extended release 24 hr buspirone 7.5 mg tablet 7.5 mg PO BID #180 tabs 12/10/24 0 02/10/25 Rx losartan 25 mg tablet 25 mg PO QDAY 12/10/24 02/10/25 Hi story magnesium oxide 400 mg PO BID #180 tabs 12/10/24 0 02/10/25 Rx montelukast 10 mg tablet 10 mg PO QDAY #90 tabs 12/10/24 Rx valacyclovir 1 gram tablet 1,000 mg PO TID #21 tabs 12/10/24 02/10/25 Rx cyclobenzaprine 5 mg tablet 5 mg PO QHS PRN muscle spasm #30 0 12/15/24 02/10/25 Rx tabs fluticasone propionate 50 1 spray intranasal QDAY allergy 02/10/25 Rx mcg/actuation nasal #16 grams spray,suspension (Flonase Allergy Relief) duloxetine 40 mg capsule,delayed 40 mg PO BID #180 caps 01/18/25 Rx release Nurse's Note: left hip and lower back pain also some neck tension but the neck is pretty normal as 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 [facility] Medical History Myocardial infarction Shingles Anemia Gastritis Fatigue History of suicide attempt Migraine CAD (coronary artery disease) Anxiety and depression Fibromyalgia Vision problems GERD (gastroesophageal reflux disease) Irritable bowel syndrome Recurrent infections High blood cholesterol Heart failure High blood pressure Hearing problem Heart disease Head ache Gastrointestinal problem Emotional problems Carpal tunnel syndrome History of blood transfusion Back pain Seasonal allergies Surgical History S/P right coronary artery (RCA) stent placement H/O section History of hysterectomy H/O wisdom tooth extraction S/P foot surgery Hx of tonsillectomy S/P appendectomy Family History Father Angina at rest Myocardial infarction, Onset Age: 70 High cholesterol Mother History of blood transfusion Anxiety Hypertension Aunt Cancer breast Grandfather Myocardial infarction, Onset Age: 70 Sister Asthma Social History household members: other details: ex in laws housing: house current occupational status: employed 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 Smoking Status: Current every day smoker tobacco type: e-cigarettes Tobacco: How many years used: 26 alcohol intake: never substance use type: marijuana and other details: CBD ,delta 8 what type of physical activity do you participate in: yoga frequency: 3-4 times per week duration: 15-30 minutes/day seatbelt use: always do you feel safe at home: Yes HPI HPI Chief Complaint: backpain Details: HOLDEN CHILDERS, is a 54 F who presents to the office today for left lower back pain with some pain in the hip and buttock area as well as some radiation down the leg (including some numbness / tingling). She has a history of chronic low back pains but states that she has not ever seen a spine physician. She states that she had been to a few different ortho STAT cares but that is it. She has not done physical therapy. She does use periodic NSAIDs if (more content not included)... [facility]on 01-20-2025 [facility] Office Visit ([facility]) LISETHHOLDEN ([id number]) 1970 F Date Time Provider Department 01/20/25 3:30 PM HOLDEN LINDSEY [facility] During your visit today, we recorded the following information about you: Temperature Pulse Respiration Blood pressure 98.1 degrees 81/minute 18/minute 121/80 Weight 61 kg Holden Lindsey, TEA.DIRECTOR PRODUCT 01/20/2025 3:51 PM Signed [facility] Subjective Holden Childers is a 54 year old female. Patient presents with: Pain: Left lower back pain, radiating into hip and Left leg x 2 weeks HPI Lower Back Pain: - Chronic back pain, with acute exacerbation x2 weeks. - Pain radiates into the left hip and occasionally to the top of the left leg. - Pain severity rated as 5/10 today. - Worse in the morning upon waking and early afternoon. - Using Tylenol with some relief; previously used ibuprofen but avoids it due to past anticoagulant therapy. - Occasionally uses a heating pad; has not used ice. - Denies known trauma, falls, or accidents. - Denies numbness or tingling in feet or legs. Review of Systems Constitutional: Negative for chills and fever. Cardiovascular: Negative. Gastrointestinal: Negative. Musculoskeletal: Positive for back pain. Negative for gait problem. Skin: Negative for color change and rash. Neurological: Negative for tremors, weakness and numbness. Neck: (+) pain worsening with movement Musculoskeletal: (+) lower back pain radiating to left hip, (+) muscle tightness Neurological: (-) numbness, (-) tingling Objective BP 121/80 Pulse 81 Temp 36.7 ?C (98.1 ?F) Resp 18 Wt 61 kg (134 lb 7.7 oz) LMP 04/16/2010 SpO2 99% BMI 22.38 kg/m? PAST MEDICAL HISTORY Diagnosis Date - Abnormal Pap smear 09/2008 LGSIL and Positive HPV - Abnormal Pap smear 04/2009 HGSIL - Encounter for insertion or removal of intrauterine contraceptive device 12/13/2008 Mirena - Endometriosis - Fibromyalgia 08/14/2012 - Hypertension - Palpitations - S/P SHREE (total abdominal hysterectomy) 05/15/2010 PAST SURGICAL HISTORY Procedure Laterality Date - APPENDECTOMY - CONIZATION CERVIX W/WO DANDC RPR ELTRD EXC 06/21/2009 (LEEP) - INSERT INTRAUTERINE DEVICE 12/13/2008 Mirena - IUD REMOVAL 03/22/2010 - LAPS ABD PRTMANDOMENTUM DX W/WO SPEC BR/WA SPX Laparoscopy - TONSILLECTOMY PRIMARY/SECONDARY Tonsillectomy - TOTAL ABDOMINAL HYSTERECT W/WO RMVL TUBE OVARY 05/15/2010 Dr. Dodd; Dysplasia, Metrorrhagia, Dysmenorrhea - TRANSV CAROTID STENT PLACEMT 10/25/2023 [place] - VAGINOSCOPY 02/01/2010 ALLERGIES Codeine MEDICATIONS - busPIRone (BUSPAR) 7.5 mg tablet Take 7.5 mg by mouth two times a day. - losartan (COZAAR) 25 mg tablet Take 1 tablet by mouth once daily. - aspirin 81 mg chewable tablet Take 1 tablet by mouth once daily. Patient should start on July 22, 2024. - cholecalciferol (VITAMIN D-3) 5,000 unit tab Take 5,000 Units by mouth once daily. - DULoxetine (CYMBALTA) 30 mg capsule Take 1 capsule by mouth once daily. - cyanocobalamin (VITAMIN B-12) 500 mcg tablet Take by mouth. - metoprolol succinate ER (TOPROL XL) 50 mg 24 hr tablet - atorvastatin (LIPITOR) 40 mg tablet Take 1 tablet by mouth every afternoon. - fluticasone propionate (FLONASE NASAL) Use in the nose. - magnesium oxide (MAG-OX) 400 mg (241.3 mg magnesium) tablet Take 1 tablet by mouth twice daily. - montelukast (SINGULAIR) 10 mg tablet Take 1 tablet by mouth daily at bedtime. - ticagrelor (BRILINTA) 90 mg tablet Take 1 tablet by mouth two times a day. Patient should start on July 24, 2024. (Patient not taking: Reported on 01/20/2025) - pantoprazole DR (PROTONIX) 40 mg tablet Take 1 tablet by mouth two times a day before meals at 6 am and 4 pm. (Patient not taking: Reported on 01/20/2025) - nicotine (NICODERM) 14 mg/24 hr Apply 1 Patch as directed once daily for 21 days. - azelastine 0.1% nasal spray Use 1 [place] in each nostril two times a day. - ketoconazole (NIZORAL) 2 % cream APPLY TOPICALLY TO THE AFFECTED AREA DAILY - LYSINE ORAL Take by mouth. (Patient not taking: Reported on 07/19/2024) - cyclobenzaprine (FLEXERIL) 5 mg tablet Take 1 tablet by mouth daily at bedtime. (Patient not taking: Reported on 01/20/2025) FAMILY HISTORY Problem Relation Age of Onset - Hypertension Mother - Coronary Artery Disease Maternal Grandfather - Coronary Artery Disease Paternal Grandfather Social History Tobacco Use - Smoking status: Former Current packs/day: 0.00 Average packs/day: 0.8 packs/day for 27.0 years (20.3 ttl pk-yrs) Types: Cigarettes Start date: 10/24/1996 Quit date: 10/25/2023 Years since quittin.2 - Smokeless tobacco: Never - Tobacco comments: Started smoking age 26 Vaping Use - Vaping status: Some Days - Substances: Nicotine, Flavoring Substance Use Topics - Alcohol use: No - Drug use: No Physical Exam (more content not included)... 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) Chief Complaint: Annual Project Director Required: No Is patient in pain?: No Allergies codeine Allergy (Intermediate, Verified 01/19/25 08:45) Vomiting Medications ???Medication ???Instructions ???Recorded ???Confirmed ???Type albuterol sulfate 90 mcg/actuation 2 puff inhalation Q6H PRN 01/19/25 History aerosol inhaler shortness of breath or wheezing aspirin 81 mg tablet,delayed 81 mg PO QDAY heart health 4 01/19/25 History release (Adult Aspirin Regimen) atorvastatin 40 mg tablet (Lipitor) 40 mg PO QDAY cholesterol 06/1401/19/25 History biotin 5 mg capsule 5 mg PO QDAY supplement 06/14/24 0 01/19/25 History cholecalciferol (vitamin D3) 25 25 mcg PO QDAY supplement 06/14/24 01/19/25 History mcg (1,000 unit) capsule lysine 1,000 mg tablet 1,000 mg PO QDAY cold sore 4 01/19/25 History metoprolol succinate 25 mg 25 mg PO BID blood pressure 01/19/25 History tablet,extended release 24 hr buspirone 7.5 mg tablet 7.5 mg PO BID #180 tabs 12/10/24 0 01/19/25 Rx losartan 25 mg tablet 25 mg PO QDAY 12/10/24 01/19/25 Hi story magnesium oxide 400 mg PO BID #180 tabs 12/10/24 0 01/19/25 Rx montelukast 10 mg tablet 10 mg PO QDAY #90 tabs 12/10/24 Rx valacyclovir 1 gram tablet 1,000 mg PO TID #21 tabs 12/10/24 01/19/25 Rx cyclobenzaprine 5 mg tablet 5 mg PO QHS PRN muscle spasm #30 0 12/15/24 01/19/25 Rx tabs fluticasone propionate 50 1 spray intranasal QDAY allergy 01/19/25 Rx mcg/actuation nasal #16 grams spray,suspension (Flonase Allergy Relief) duloxetine 40 mg capsule,delayed 40 mg PO BID #180 caps 01/18/25 Rx release Is last menstrual period known: No Post menopausal: Yes Patient : No : No Control Method: Hysterectomy 2009 [facility] Medical History Myocardial infarction Shingles Anemia Gastritis Fatigue History of suicide attempt Migraine CAD (coronary artery disease) Anxiety and depression Fibromyalgia Vision problems GERD (gastroesophageal reflux disease) Irritable bowel syndrome Recurrent infections High blood cholesterol Heart failure High blood pressure Hearing problem Heart disease Head ache Gastrointestinal problem Emotional problems Carpal tunnel syndrome History of blood transfusion Back pain Seasonal allergies Surgical History S/P right coronary artery (RCA) stent placement H/O section History of hysterectomy H/O wisdom tooth extraction S/P foot surgery Hx of tonsillectomy S/P appendectomy Family History Father Angina at rest Myocardial infarction, Onset Age: 70 High cholesterol Mother History of blood transfusion Anxiety Hypertension Aunt Cancer breast Grandfather Myocardial infarction, Onset Age: 70 Sister Asthma Social History (Updated 01/19/25 @ 08:50 by Veronica Chapman) household members: other details: ex in laws housing: house current occupational status: employed 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 Denies concerns. Was living in [facility] until last year. Was there X 12 yr Not sexually active since prior to last exam in 2021. Last PAP: hyst due to abnormal pap/endometriosis. 2009-[facility] Dr Dodd History of abnormal PAP: yes LE (more content not included)... [facility] Absolute lymphocyte countOrd ered By: Bonifacio Bell on 12-10-2024 Lymphocytes Auto (Unsp spec) [#/Vol] 1.89 10*3/uL 0.83-4.51 [facility] Absolute neutrophil countOrd ered By: Bonifacio Bell on 12-10-2024 Neutrophils (Bld) [#/Vol] 3.7 10*3/uL 2.0-7.7 [facility] Anion gap in Serum or Plasma Ordered By: Sid Enriquez on 12-10-2024 Anion gap [Moles/Vol] 11 mmol/L 5-15 [facility] Automated lymphocyte count a s percentage of total leukocytesOrdered By: Bonifacio Bell on 12-10-2024 Lymphocytes/100 WBC Auto (Unsp spec) 30.0 % 19-41 [facility] BUN/creatinine ratioOrdered By: Sid Enriquez on 12-10-2024 Urea nitrogen/Creatinine [Mass ratio] 16.4 mg/mg 10-20 [facility] Basophil percentageOrdered B y: Bonifacio Bell on 12-10-2024 Basophils/100 WBC (Bld) 1.0 % 0-1 [facility] Bilirubin, totalOrdered By: Sid Enriquez on 12-10-2024 Bilirubin [Mass/Vol] 0.34 mg/dL 0.00-1.30 [facility] CBC W/Diff, Automatedon 11-23 Absolute Lymph 1.89 X10 3/uL Normal 0.83-4.51 [facility] Comment on above: Performed By: #### L 503.6550, L100.0100, L503.6030 #### [facility] [address] [place], [address] Absolute Neut 3.7 X10 3/uL Normal 2.0-7.7 [facility] Comment on above: Performed By: #### L 503.6550, L100.0100, L503.6030 #### [facility] [address] [place], [address] Basophils/100 WBC (Bld) 1.0 % Normal 0-1 [facility] Comment on above: Performed By: #### L 503.6550, L100.0100, L503.6030 #### [facility] [address] [place], [address] Eosinophils/100 WBC (Bld) 4.4 % Normal 0-5 [facility] Comment on above: Performed By: #### L 503.6550, L100.0100, L503.6030 #### [facility] [address] [place], [address] Erythrocyte distribution width (RBC) [Ratio] 13.2 % Normal 11.6-14.6 [facility] Comment on above: Performed By: #### L 503.6550, L100.0100, L503.6030 #### [facility] [address] [place], [address] Hematocrit (Bld) [Volume fraction] 39.4 % Normal 37-47 [facility] Comment on above: Performed By: #### L 503.6550, L100.0100, L503.6030 #### [facility] [address] [place], [address] Hemoglobin (Bld) [Mass/Vol] 13.6 g/dL Normal 12.0-15.0 [facility] Comment on above: Performed By: #### L 503.6550, L100.0100, L503.6030 #### [facility] [address] [place], [address] IG% 0.200 Normal 0.0-0.9 [facility] Comment on above: Result Comment: IG% - Immature Granulocytes (promyelocytes, myelocytes and metamyelocytes) > 1% indicates that a LEFT SHIFT is Present. Performed By: #### L 503.6550, L100.0100, L503.6030 #### [facility] [address] [place], [address] Lymphocytes/100 WBC (Bld) 30.0 % Normal 19-41 [facility] Comment on above: Performed By: #### L 503.6550, L100.0100, L503.6030 #### [facility] [address] [place], [address] MCH (RBC) [Entitic mass] 31.7 pg Normal 27.0-32.0 [facility] Comment on above: Performed By: #### L 503.6550, L100.0100, L503.6030 #### [facility] [address] [place], [address] MCHC (RBC) [Mass/Vol] 34.5 g/dL Normal 32-36 [facility] Comment on above: Performed By: #### L 503.6550, L100.0100, L503.6030 #### [facility] [address] [place], [address] MCV (RBC) [Entitic vol] 91.8 fL Normal 81-99 [facility] Comment on above: Performed By: #### L 503.6550, L100.0100, L503.6030 #### [facility] [address] [place], [address] Monocytes/100 WBC (Bld) 6.3 % Normal 0-10 [facility] Comment on above: Performed By: #### L 503.6550, L100.0100, L503.6030 #### [facility] [address] [place], [address] Neutrophils/100 WBC (Bld) 58.1 % Normal 47-70 [facility] Comment on above: Performed By: #### L 503.6550, L100.0100, L503.6030 #### [facility] [address] [place], [address] Nucleated RBC (Bld) [#/Vol] 0 10*3/uL Normal 0-5 [facility] Comment on above: Performed By: #### L 503.6550, L100.0100, L503.6030 #### [facility] [address] [place], [address] Platelet mean volume (Bld) [Entitic vol] 10.0 fL Normal 6.2-12.0 [facility] Comment on above: Performed By: #### L 503.6550, L100.0100, L503.6030 #### [facility] [address] [place], [address] Platelets (Bld) [#/Vol] 214 10*3/uL Normal 150-450 [facility] Comment on above: Performed By: #### L 503.6550, L100.0100, L503.6030 #### [facility] [address] [place], [address] RBC (Bld) [#/Vol] 4.29 10*6/uL Normal 4.2-5.4 [facility] Comment on above: Performed By: #### L 503.6550, L100.0100, L503.6030 #### [facility] [address] [place], [address] RDW SD 44.5 fl High 35.1-43.9 [facility] Comment on above: Performed By: #### L 503.6550, L100.0100, L503.6030 #### [facility] [address] [place], [address] WBC (Bld) [#/Vol] 6.3 10*3/uL Normal 4.4-11.0 [facility] Comment on above: Performed By: #### L 503.6550, L100.0100, L503.6030 #### [facility] [address] [place], [address] Calculated total iron bindin g capacityOrdered By: Bonifacio Bell on 12-10-2024 Total Iron Binding Capacity 349 ug/dL 250-450 [facility] Calculated very low density lipoprotein (VLDL) cholesterol measurementOrdered By: Sid Enriquez on 12-10-2024 Calculated very low density lipoprotein (VLDL) cholesterol measurement 18 mg/dL 5-40 [facility] VLDL Cholesterol 18 mg/dL -40 [facility] Carbon dioxide, total [Moles /volume] in Central venous bloodOrdered By: Sid Enriquez on 12-10-2024 CO2 [Moles/Vol] 24.6 mmol/L 21.0-32.0 [facility] Chloride assayOrdered By: Tuan Enriquez on 12-10-2024 Chloride [Moles/Vol] 103 mmol/L 98-108 [facility] Comprehensive Metabolic Prof ilon 12-10-2024 Albumin [Mass/Vol] 4.6 g/dL Normal 3.5-5.0 [facility] Comment on above: Performed By: #### L 500.4050, L501.9310, L501.5200, L501.9520, L500.4100 #### [facility] [address] [place], [address] Albumin/Globulin [Mass ratio] 1.7 {ratio} Normal 0.9-2.4 [facility] Comment on above: Performed By: #### L 500.4050, L501.9310, L501.5200, L501.9520, L500.4100 #### [facility] [address] [place], [address] ALK PHOS 94 U/L Normal 35-104 [facility] Comment on above: Performed By: #### L 500.4050, L501.9310, L501.5200, L501.9520, L500.4100 #### [facility] [address] [place], [address] ALT [Catalytic activity/Vol] 18 U/L Normal <=34 [facility] Comment on above: Performed By: #### L 500.4050, L501.9310, L501.5200, L501.9520, L500.4100 #### [facility] [address] [place], [address] AST [Catalytic activity/Vol] 20 U/L Normal <=31 [facility] Comment on above: Performed By: #### L 500.4050, L501.9310, L501.5200, L501.9520, L500.4100 #### [facility] [address] [place], [address] Bilirubin [Mass/Vol] 0.34 mg/dL Normal 0.00-1.30 [facility] Comment on above: Performed By: #### L 500.4050, L501.9310, L501.5200, L501.9520, L500.4100 #### [facility] [address] [place], [address] BUN/CRE 16.4 RATIO Normal 10-20 [facility] Comment on above: Performed By: #### L 500.4050, L501.9310, L501.5200, L501.9520, L500.4100 #### [facility] [address] [place], [address] Calcium [Mass/Vol] 9.9 mg/dL Normal 7.6-11.0 [facility] Comment on above: Performed By: #### L 500.4050, L501.9310, L501.5200, L501.9520, L500.4100 #### [facility] [address] [place], [address] Chloride [Moles/Vol] 103 mmol/L Normal 98-108 [facility] Comment on above: Performed By: #### L 500.4050, L501.9310, L501.5200, L501.9520, L500.4100 #### [facility] [address] [place], [address] CO2 [Moles/Vol] 24.6 mmol/L Normal 21.0-32.0 [facility] Comment on above: Performed By: #### L 500.4050, L501.9310, L501.5200, L501.9520, L500.4100 #### [facility] [address] [place], [address] Creatinine [Mass/Vol] 0.94 mg/dL Normal 0.70-1.20 [facility] Comment on above: Performed By: #### L 500.4050, L501.9310, L501.5200, L501.9520, L500.4100 #### [facility] [address] [place], [address] GAP 11 Normal 5-15 [facility] Comment on above: Performed By: #### L 500.4050, L501.9310, L501.5200, L501.9520, L500.4100 #### [facility] [address] [place], [address] GFR/1.73 sq M.predicted among non-blacks MDRD (S/P/Bld) [Vol rate/Area] 72 mL/min/{1.73_m2} Normal >60 [facility] Comment on above: Result Comment: mL/m in/1.73m2 CKD-EPI Creatinine Equation (2020) Performed By: #### L 500.4050, L501.9310, L501.5200, L501.9520, L500.4100 #### [facility] [address] [place], [address] Globulin (S) [Mass/Vol] 2.7 g/dL Normal 2.2-4.2 [facility] Comment on above: Performed By: #### L 500.4050, L501.9310, L501.5200, L501.9520, L500.4100 #### [facility] [address] [place], [address] Glucose [Mass/Vol] 100 mg/dL High 70-99 [facility] Comment on above: Performed By: #### L 500.4050, L501.9310, L501.5200, L501.9520, L500.4100 #### [facility] [address] [place], [address] Potassium [Moles/Vol] 4.7 mmol/L Normal 3.3-5.1 [facility] Comment on above: Performed By: #### L 500.4050, L501.9310, L501.5200, L501.9520, L500.4100 #### [facility] [address] [place], [address] Sodium [Moles/Vol] 139 mmol/L Normal 133-145 [facility] Comment on above: Performed By: #### L 500.4050, L501.9310, L501.5200, L501.9520, L500.4100 #### [facility] [address] [place], [address] T PROT 7.3 g/dL Normal 5.9-8.4 [facility] Comment on above: Performed By: #### L 500.4050, L501.9310, L501.5200, L501.9520, L500.4100 #### [facility] [address] [place], [address] Urea nitrogen [Mass/Vol] 15 mg/dL Normal 4-19 [facility] Comment on above: Performed By: #### L 500.4050, L501.9310, L501.5200, L501.9520, L500.4100 #### [facility] [address], [address] Eosinophil percentageOrdered By: Maritabonnielatishakinga Arabella on 12-10-2024 Eosinophils/100 WBC (Bld) 4.4 % 0-5 [facility] Erythrocyte distribution wid th (RBC) [Ratio]Ordered By: Meyfairfaxkinga Bell on 12-10-2024 Erythrocyte distribution width (RBC) [Entitic vol] 44.5 fL High 35.1-43.9 [facility] Erythrocyte distribution wid th ratioOrdered By: [facility] Arabella on 12-10-2024 Erythrocyte distribution width (RBC) [Ratio] 13.2 % 11.6-14.6 [facility] Erythrocyte distribution wid th standard deviationOrdered By: [facility] Davemarina on 12-10-2024 Erythrocyte distribution width (RBC) [Ratio] 44.5 fl High 35.1-43.9 [facility] Ferritinon 12-10-2024 Ferritin [Mass/Vol] 67 ng/mL Normal 22-378 [facility] Comment on above: Performed By: #### L 503.6550, L100.0100, L503.6030 #### [facility] [address] [place], [address] GFR/1.73 sq M.predicted eyal g non-blacks MDRD (S/P/Bld) [Vol rate/Area]Ordered By: Sid Enriquez on 12-10-2024 Estimated GFR (MDRD) Non-Af Amer 72 >60 [facility] Comment on above: mL/min/1.73m2 CKD-EP I Creatinine Equation (2020) Glomerular filtration rate ( GFR) estimation/1.73 sq m using serum, plasma, or whole bOrdered By: Sid Enriquez on 12-10-2024 GFR/1.73 sq M.predicted among non-blacks MDRD (S/P/Bld) [Vol rate/Area] 72 mL/min/{1.73_m2} >60 [facility] Comment on above: mL/min/1.73m2 CKD-EP I Creatinine Equation (2020) Hematocrit Auto (Bld) [Volum e fraction]Ordered By: Bonifacio Bell on 12-10-2024 Hematocrit (Bld) [Volume fraction] 39.4 % 37-47 [facility] Hemoglobin measurementOrdere d By: Bonifacio Bell on 12-10-2024 Hemoglobin (Bld) [Mass/Vol] 13.6 g/dL 12.0-15.0 [facility] Immature granulocytes/100 WB C Auto (Bld)Ordered By: Bonifacio Bell on 12-10-2024 Immature granulocytes/100 WBC (Bld) 0.200 % 0.0-0.9 [facility] Comment on above: IG% - Immature Granu locytes (promyelocytes, myelocytes and metamyelocytes) > 1% indicates that a LEFT SHIFT is Present. Internal Medicine Office Vis shikha 12-10-2024 Internal Medicine Office Visit [facility] [place] [address] [place] [address] OFFICE VISIT Date of Service: 12/10/24 MR#: [id number] Acct: [id number] Name: HOLDEN CHILDERS Rep #: [id number] : 1970 Provider: MINERVA Hanson Age/Sex: 54/F Location: [facility] Status: Signed Intake Vital Signs 11/28/24 17:05 12/10/24 07:31 Height 5 ft 5 in 5 ft 5 in Weight: 135 lb 8 oz BMI 22.5 BP 118/78 Blood Pressure Location Rt brachial Position Sitting Respiration 16 Pulse 76 Pulse Source Monitor Temp 96.3 F L Temp Source Temporal Pulse Oximetry (%) 91 Oxygen Delivery Method room air Intake Visit Reasons: yearly/med refills Chief Complaint: refills Project Director Required: No Accompanied by: Self Is patient in pain?: No Allergies codeine Allergy (Intermediate, Verified 12/10/24 07:27) Vomiting Medications ???Medication ???Instructions ???Recorded ???Confirmed ???Type albuterol sulfate 90 mcg/actuation 2 puff inhalation Q6H PRN 12/10/24 History aerosol inhaler shortness of breath or wheezing aspirin 81 mg tablet,delayed 81 mg PO QDAY heart health 4 12/10/24 History release (Adult Aspirin Regimen) atorvastatin 40 mg tablet (Lipitor) 40 mg PO QDAY cholesterol 06/1412/10/24 History biotin 5 mg capsule 5 mg PO QDAY supplement 06/14/24 0 12/10/24 History cholecalciferol (vitamin D3) 25 25 mcg PO QDAY supplement 06/14/24 12/10/24 History mcg (1,000 unit) capsule fluticasone propionate 50 1 spray intranasal QDAY allergy 12/10/24 History mcg/actuation nasal spray,suspension (Flonase Allergy Relief) lysine 1,000 mg tablet 1,000 mg PO QDAY cold sore 4 12/10/24 History metoprolol succinate 25 mg 25 mg PO BID blood pressure 12/10/24 History tablet,extended release 24 hr cyclobenzaprine 5 mg tablet 5 mg PO QHS 11/28/24 12/10/24 Hist ory buspirone 7.5 mg tablet 7.5 mg PO BID #180 tabs 12/10/24 0 12/10/24 Rx duloxetine 30 mg capsule,delayed 30 mg PO BID #180 caps 12/10/24 Rx release losartan 25 mg tablet 25 mg PO QDAY 12/10/24 12/10/24 Hi story magnesium oxide 400 mg PO BID #180 tabs 12/10/24 0 12/10/24 Rx montelukast 10 mg tablet 10 mg PO QDAY #90 tabs 12/10/24 Rx valacyclovir 1 gram tablet 1,000 mg PO TID #21 tabs 12/10/24 12/10/24 Rx Have you fallen in the past year?: No 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 Note: refills needed PFSH Medical History (Updated 12/10/24 @ 16:26 by Sid PALMA PA) Myocardial infarction Shingles Anemia Gastritis Fatigue History of suicide attempt Migraine CAD (coronary artery disease) Anxiety and depression Health care maintenance Fibromyalgia Vision problems GERD (gastroesophageal reflux disease) Irritable bowel syndrome Recurrent infections High blood cholesterol Heart failure High blood pressure Hearing problem Heart disease Head ache Gastrointestinal problem Emotional problems Carpal tunnel syndrome History of blood transfusion Back pain Seasonal allergies Surgical History S/P right coronary artery (RCA) stent placement H/O section History of hysterectomy H/O wisdom tooth extraction S/P foot surgery Hx of tonsillectomy S/P appendectomy Family History Father Angina at rest Myocardial infarction, Onset Age: 70 High cholesterol Mother History of blood transfusion Anxiety Hypertension Aunt Cancer breast Grandfather Myocardial infarction, Onset Age: 70 Sister Asthma Social History household members: other details: ex in laws housing: house current occupational status: employed 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 She had recent blood work and has new requisite for some other labs to be done. They are currently managing her cholesterol. No side effects or tolerance issues. Patient was previously seeing psychiatry at the counseling center. She is not going to be seeing them anymore as she is going to be seeing a counselor at [facility]. They were managing her Buspirone and her Cymbalta bu (more content not included)... [facility] [Mass/Mass] Ordered By: Bonifacio Bell on 12-10-2024 Iron [Mass/Vol] 88 ug/dL 50-170 [facility] Iron measurement (mass/mass) Ordered By: Bonifacio Bell on 12-10-2024 Iron (Unsp spec) [Mass/Mass] 88 ug/dL 50-170 [facility] Iron saturation [Mass fracti on]Ordered By: Bonifacio Acostachelemarina on 12-10-2024 Iron Saturation 25.0 % 13-59 [facility] Iron+Iron Binding Capacityon 12-10-2024 Iron [Mass/Vol] 88 ug/dL Normal 50-170 [facility] Comment on above: Performed By: #### L 503.6550, L100.0100, L503.6030 #### [facility] [address] [place], [address] IRON SATURATION 25.0 Normal 13-59 [facility] Comment on above: Performed By: #### L 503.6550, L100.0100, L503.6030 #### [facility] [address] [place], [address] TIBC 349 ug/dL Normal 250-450 [facility] Comment on above: Performed By: #### L 503.6550, L100.0100, L503.6030 #### [facility] [address] [place], [address] UIBC 261 ug/dL Normal 228-428 [facility] Comment on above: Performed By: #### L 503.6550, L100.0100, L503.6030 #### [facility] [address] [place], [address] LDL calc ser/plasOrdered By: Sid Enriquez on 12-10-2024 Cholesterol in LDL [Mass/Vol] 77 mg/dL [facility] Comment on above: Djunywnjir=404-493 m g/dL & Higher Zgnb=019 mg/dL or greater LDL Cholesterol, Calculated 77 mg/dL [facility] Comment on above: Tvyppylxvo=329-373 m g/dL & Higher Nvxx=015 mg/dL or greater Laboratory - Chemistry and C hemistry - challengeOrdered By: Sid Enriquez on 12-10-2024 AST [Catalytic activity/Vol] 20 U/L <32 [facility] Lipid Profileon 12-10-2024 CHOL:HDL 3.04 Normal [facility] Comment on above: Performed By: #### L 500.4050, L501.9310, L501.5200, L501.9520, L500.4100 #### [facility] [address] [place], [address] Cholesterol [Mass/Vol] 141 mg/dL Normal <=200 [facility] Comment on above: Result Comment: Chol esterol level, Desirable <200 mg/dL Borderline high cholesterol 200-239 mg/dL High cholesterol >=240 mg/dL Recommendations of the NCEP Adult Treatment Panel for the following risk-cutoff thresholds for the [place] population. Performed By: #### L 500.4050, L501.9310, L501.5200, L501.9520, L500.4100 #### [facility] [address] [place], [address] Cholesterol in HDL [Mass/Vol] 46 mg/dL Normal [facility] Comment on above: Result Comment: Aleksandra onal Cholesterol Education Program (NCEP) guidelines: <40 mg/dL: Low HDL-cholesterol (major risk factor for CHD) >= 60 mg/dL: High HDL-cholesterol (negative risk factor for CHD) HDL-cholesterol is affected by a number of factors, e.g. smoking, exercise, hormones, sex and age. Performed By: #### L 500.4050, L501.9310, L501.5200, L501.9520, L500.4100 #### [facility] [address] [place], [address] Cholesterol in LDL [Mass/Vol] 77 mg/dL Normal [facility] Comment on above: Result Comment: Bord dnwtav=227-633 mg/dL Higher Jkdy=772 mg/dL or greater Performed By: #### L 500.4050, L501.9310, L501.5200, L501.9520, L500.4100 #### [facility] [address] [place], [address] Cholesterol in VLDL [Mass/Vol] 18 mg/dL Normal 5-40 [facility] Comment on above: Performed By: #### L 500.4050, L501.9310, L501.5200, L501.9520, L500.4100 #### [facility] [address] [place], [address] Triglyceride [Mass/Vol] 88 mg/dL Normal [facility] Comment on above: Result Comment: The drugs N-Acetylcysteine and Metamizole may falsely depress this assay. Normal range: <150 mg/dL Borderline High: 150-199 mg/dL High: 200-499 mg/dL Very High: >500 mg/dL Performed By: #### L 500.4050, L501.9310, L501.5200, L501.9520, L500.4100 #### [facility] [address] [place], [address] Lymphocytes Auto (Unsp spec) [#/Vol]Ordered By: Bonifacio Bell on 12-10-2024 Lymphocytes (Bld) [#/Vol] 1.89 10*3/uL 0.83-4.51 [facility] Lymphocytes/100 WBC Auto (Un sp spec)Ordered By: Bonifacio Bell on 12-10-2024 Lymphocytes/100 WBC (Bld) 30.0 % 19-41 [facility] MCV (mean corpuscular volume ) determinationOrdered By: Bonifacio Bell on 12-10-2024 MCV (RBC) [Entitic vol] 91.8 fL 81-99 [facility] Magnesiumon 12-10-2024 Magnesium [Mass/Vol] 2.3 mg/dL High 1.5-2.2 [facility] Comment on above: Performed By: #### L 500.4050, L501.9310, L501.5200, L501.9520, L500.4100 #### [facility] [place], [address] Magnesium (Unsp spec) [Mass/ Vol]Ordered By: Sid Enriquez on 12-10-2024 Magnesium [Mass/Vol] 2.3 mg/dL High 1.5-2.2 [facility] Magnesium measurement (mass/ volume)Ordered By: Sid Enriquez on 12-10-2024 Magnesium (Unsp spec) [Mass/Vol] 2.3 mg/dL High 1.5-2.2 [facility] Mean corpuscular hemoglobin (MCH) determinationOrdered By: Bonifacio Bell on 12-10-2024 MCH (RBC) [Entitic mass] 31.7 pg 27.0-32.0 [facility] Mean corpuscular hemoglobin concentration (MCHC) determinationOrdered By: Bonifacio Bell on 12-10-2024 MCHC (RBC) [Mass/Vol] 34.5 g/dL 32-36 [facility] Mean platelet volume determi nationOrdered By: Bonifacio Bell on 12-10-2024 Platelet mean volume (Bld) [Entitic vol] 10.0 fL 6.2-12.0 [facility] Monocyte percentageOrdered B y: Bonifacio Bell on 12-10-2024 Monocytes/100 WBC (Bld) 6.3 % 0-10 [facility] Neutrophil percentageOrdered By: Bonifacio Bell on 12-10-2024 Neutrophils/100 WBC (Bld) 58.1 % 47-70 [facility] No Panel InformationOrdered By: Bonifacio Bell on 12-10-2024 Unsaturated Iron Binding Capacity 261 ug/dL 228-428 [facility] Nucleated red blood cell per centageOrdered By: Bonifacio Bell on 12-10-2024 Nucleated RBC/100 WBC (Bld) [Ratio] 0 % 0-5 [facility] Platelet countOrdered By: Marita Bell on 12-10-2024 Platelets (Bld) [#/Vol] 214 10*3/uL 150-450 [facility] Potassium (Unsp spec) [Mass/ Vol]Ordered By: Sid Enriquez on 12-10-2024 Potassium [Moles/Vol] 4.7 mmol/L 3.3-5.1 [facility] Potassium measurement (mass/ volume)Ordered By: Sid Enriquez on 12-10-2024 Potassium (Unsp spec) [Mass/Vol] 4.7 mmol/L 3.3-5.1 [facility] RBC Auto (Bld) [#/Vol]Ordere d By: Bonifacio Arabella on 12-10-2024 RBC (Bld) [#/Vol] 4.29 10*6/uL 4.2-5.4 [facility] Screening total cholesterol/ high density lipoprotein (HDL) cholesterol ratioOrdered By: Sid Enriquez on 12-10-2024 Cholesterol.total/Ashtyn sterol in HDL [Mass ratio] 3.04 {ratio} [facility] Serum creatinine measurement (mass/volume)Ordered By: Sid Enriquez on 12-10-2024 Creatinine [Mass/Vol] 0.94 mg/dL 0.70-1.20 [facility] Serum globulin measurementOr dered By: Sid Enriquez on 12-10-2024 Globulin (S) [Mass/Vol] 2.7 g/dL 2.2-4.2 [facility] Serum glucose measurement (m ass/volume)Ordered By: Sid Enriquez on 12-10-2024 Glucose [Mass/Vol] 100 mg/dL High 70-99 [facility] Serum or plasma alanine arshad otransferase (ALT) measurementOrdered By: Sid Enriquez on 12-10-2024 ALT [Catalytic activity/Vol] 18 U/L <35 [facility] Serum or plasma albumin alyssa urement (mass/volume)Ordered By: Sid Enriquez on 12-10-2024 Albumin [Mass/Vol] 4.6 g/dL 3.5-5.0 [facility] Serum or plasma albumin/glob ulin mass ratioOrdered By: Sid Enriquez on 12-10-2024 Albumin/Globulin [Mass ratio] 1.7 {ratio} 0.9-2.4 [facility] Serum or plasma alkaline marlo sphatase measurementOrdered By: Sid Enriquez on 12-10-2024 ALP [Catalytic activity/Vol] 94 U/L 35-104 [facility] Serum or plasma calcium alyssa urement (mass/volume)Ordered By: Sid Enriquez on 12-10-2024 Calcium [Mass/Vol] 9.9 mg/dL 7.6-11.0 [facility] Serum or plasma cholesterol in HDL measurement (mass/volume)Ordered By: Sid Enriquez on 12-10-2024 Cholesterol in HDL [Mass/Vol] 46 mg/dL >40 [facility] Comment on above: National Cholesterol Education Program (NCEP) guidelines:<40 mg/dL: Low HDL-cholesterol (major risk factor for CHD)>= 60 mg/dL: High HDL-cholesterol (negative risk factor for CHD)HDL-cholesterol is affected by a number of factors, e.g. smoking, exercise, hormones, sex and age. Serum or plasma cholesterol measurement (mass/volume)Ordered By: Sid Enriquez on 12-10-2024 Cholesterol [Mass/Vol] 141 mg/dL <201 [facility] Comment on above: Cholesterol level, D esirable <200 mg/dLBorderline high cholesterol 200-239 mg/dLHigh cholesterol >=240 mg/dLRecommendations of the NCEP Adult Treatment Panel for the following risk-cutoff thresholds for the [place] population. Serum or plasma ferritin du surement (mass/volume)Ordered By: Bonifacio Bell on 12-10-2024 Ferritin [Mass/Vol] 67 ng/mL 22-378 [facility] Serum or plasma iron saturat ion measurement (mass fraction)Ordered By: Bonifacio Bell on 12-10-2024 Iron saturation [Mass fraction] 25.0 % 13-59 [facility] Serum or plasma urea nitroge n measurement (mass/volume)Ordered By: Sid Enriquez on 12-10-2024 Urea nitrogen [Mass/Vol] 15 mg/dL 4-19 [facility] Sodium levelOrdered By: Hakeem Enriquez on 12-10-2024 Sodium [Moles/Vol] 139 mmol/L 133-145 [facility] T4 Total, Thyroxinon 025 T4 [Mass/Vol] 6.4 ug/dL Normal 4.8-13.9 [facility] Comment on above: Performed By: #### L 500.4050, L501.9310, L501.5200, L501.9520, L500.4100 #### [facility] [address] [place], [place], [address] TSH DL <= 0.005 mIU/L QnOrde red By: Sid Enriquez on 12-10-2024 Thyroid Stimulating Hormone (TSH) 0.567 uIU/mL 0.300-4.200 [facility] TSH Qn 0.567 uIU/mL 0.300-4.200 [facility] Thyroid Stim Hormone (TSH)on 12-10-2024 TSH 0.567 uIU/mL Normal 0.300-4.200 [facility] Comment on above: Performed By: #### L 500.4050, L501.9310, L501.5200, L501.9520, L500.4100 #### [facility] [address] [place], [place], [address] ThyroxineOrdered By: Sid Enriquez on 12-10-2024 T4 [Mass/Vol] 6.4 ug/dL 4.8-13.9 [facility] Total proteinOrdered By: Oliverio Enriquez on 12-10-2024 Protein [Mass/Vol] 7.3 g/dL 5.9-8.4 [facility] Triglycerides measurementOrd ered By: Sid Enriquez on 12-10-2024 Triglyceride [Mass/Vol] 88 mg/dL <199 [facility] Comment on above: The drugs N-Acetylcy steine and Metamizole may falsely depress this assay. Normal range: <150 mg/dLBorderline High: 150-199 mg/dLHigh: 200-499 mg/dLVery High: >500 mg/dL White blood cell (WBC) count Ordered By: Bonifacio Bell on 12-10-2024 WBC (Bld) [#/Vol] 6.3 10*3/uL 4.4-11.0 [facility] 12 Lead EKGon 11-28-2024 12 Lead EKG [facility] [address] [place] [address] 12 Lead EKG 11/28/24 1717 MR#: [id number] Acct: [id number] Name: HOLDEN CHILDERS Rep #: [id number] : 1970 54 From: Fred Christensen MD Attending Dr: Status: DEP ER Ordering Dr: Laurel Good Date: 11/28/24 Location: ED Sex: F C Admitted: Test Reason : CP Blood Pressure : */* mmHG Vent. Rate : 94 BPM Atrial Rate : 94 BPM P-R Int : 124 ms QRS Dur : 92 ms QT Int : 340 ms P-R-T Axes : 60 30 -37 degrees QTcB Int : 425 ms Sinus rhythm with occasional Premature ventricular complexes Inferior infarct (cited on or before 13-Jul-2024) T wave abnormality, consider lateral ischemia Abnormal ECG Confirmed by FRED CHRISTENSEN MD ([id number]), book editor DANIEL TOVAR ([id number]) on 11/29/2024 9:14:37 AM Referred By: Confirmed By: FRED CHRISTENSEN MD 11/29/24 0914 Date Fred Christensen MD CC: Dr. Facundo Garcia MD; Dr. Bonifacio Bell MD; MINERVA Martinez Signed Normal [facility] Absolute lymphocyte countOrd ered By: Laurel Good on 11-28-2024 Lymphocytes Auto (Unsp spec) [#/Vol] 2.60 10*3/uL 0.83-4.51 [facility] Absolute neutrophil countOrd ered By: Laurel Good on 11-28-2024 Neutrophils (Bld) [#/Vol] 7.4 10*3/uL 2.0-7.7 [facility] Anion gap in Serum or Plasma Ordered By: Laurel Good on 11-28-2024 Anion gap [Moles/Vol] 15 mmol/L 5-15 [facility] Automated lymphocyte count a s percentage of total leukocytesOrdered By: Laurel Good on 11-28-2024 Lymphocytes/100 WBC Auto (Unsp spec) 24.1 % - [facility] BUN/creatinine ratioOrdered By: Laurel Good on 11-28-2024 Urea nitrogen/Creatinine [Mass ratio] 18.1 mg/mg 10-20 [facility] Basophil percentageOrdered B y: Laurel Good on 11-28-2024 Basophils/100 WBC (Bld) 0.6 % 0-1 [facility] Bilirubin, totalOrdered By: Laurel Good on 11-28-2024 Bilirubin [Mass/Vol] 0.41 mg/dL 0.00-1.30 [facility] CBC W/Diff, Automatedon Absolute Lymph 2.60 X10 3/uL Normal 0.83-4.51 [facility] Comment on above: Performed By: #### L 500.4050, L501.9310, L501.5200, L501.9520, L500.4100 #### [facility] [address] [place], [address] Absolute Neut 7.4 X10 3/uL Normal 2.0-7.7 [facility] Comment on above: Performed By: #### L 500.4050, L501.9310, L501.5200, L501.9520, L500.4100 #### [facility] [address] [place], [address] Basophils/100 WBC (Bld) 0.6 % Normal 0-1 [facility] Comment on above: Performed By: #### L 500.4050, L501.9310, L501.5200, L501.9520, L500.4100 #### [facility] [address] [place], [address] Eosinophils/100 WBC (Bld) 1.2 % Normal 0-5 [facility] Comment on above: Performed By: #### L 500.4050, L501.9310, L501.5200, L501.9520, L500.4100 #### [facility] [address] [place], [address] Erythrocyte distribution width (RBC) [Ratio] 13.9 % Normal 11.6-14.6 [facility] Comment on above: Performed By: #### L 500.4050, L501.9310, L501.5200, L501.9520, L500.4100 #### [facility] [address] [place], [address] Hematocrit (Bld) [Volume fraction] 42.5 % Normal 37-47 [facility] Comment on above: Performed By: #### L 500.4050, L501.9310, L501.5200, L501.9520, L500.4100 #### [facility] [address] [place], [address] Hemoglobin (Bld) [Mass/Vol] 14.4 g/dL Normal 12.0-15.0 [facility] Comment on above: Performed By: #### L 500.4050, L501.9310, L501.5200, L501.9520, L500.4100 #### [facility] [address] [place], [address] IG% 0.400 Normal 0.0-0.9 [facility] Comment on above: Result Comment: IG% - Immature Granulocytes (promyelocytes, myelocytes and metamyelocytes) > 1% indicates that a LEFT SHIFT is Present. Performed By: #### L 500.4050, L501.9310, L501.5200, L501.9520, L500.4100 #### [facility] [address] [place], [address] Lymphocytes/100 WBC (Bld) 24.1 % Normal 19-41 [facility] Comment on above: Performed By: #### L 500.4050, L501.9310, L501.5200, L501.9520, L500.4100 #### [facility] [address] [place], [address] MCH (RBC) [Entitic mass] 31.8 pg Normal 27.0-32.0 [facility] Comment on above: Performed By: #### L 500.4050, L501.9310, L501.5200, L501.9520, L500.4100 #### [facility] [address] [place], [address] MCHC (RBC) [Mass/Vol] 33.9 g/dL Normal 32-36 [facility] Comment on above: Performed By: #### L 500.4050, L501.9310, L501.5200, L501.9520, L500.4100 #### [facility] [address] [place], [address] MCV (RBC) [Entitic vol] 93.8 fL Normal 81-99 [facility] Comment on above: Performed By: #### L 500.4050, L501.9310, L501.5200, L501.9520, L500.4100 #### [facility] [address] [place], [address] Monocytes/100 WBC (Bld) 5.1 % Normal 0-10 [facility] Comment on above: Performed By: #### L 500.4050, L501.9310, L501.5200, L501.9520, L500.4100 #### [facility] [address] [place], [address] Neutrophils/100 WBC (Bld) 68.6 % Normal 47-70 [facility] Comment on above: Performed By: #### L 500.4050, L501.9310, L501.5200, L501.9520, L500.4100 #### [facility] [address] [place], [address] Nucleated RBC (Bld) [#/Vol] 0 10*3/uL Normal 0-5 [facility] Comment on above: Performed By: #### L 500.4050, L501.9310, L501.5200, L501.9520, L500.4100 #### [facility] [address] [place], [address] Platelet mean volume (Bld) [Entitic vol] 9.0 fL Normal 6.2-12.0 [facility] Comment on above: Performed By: #### L 500.4050, L501.9310, L501.5200, L501.9520, L500.4100 #### [facility] [address] [place], [address] Platelets (Bld) [#/Vol] 201 10*3/uL Normal 150-450 [facility] Comment on above: Performed By: #### L 500.4050, L501.9310, L501.5200, L501.9520, L500.4100 #### [facility] [address] [place], [address] RBC (Bld) [#/Vol] 4.53 10*6/uL Normal 4.2-5.4 [facility] Comment on above: Performed By: #### L 500.4050, L501.9310, L501.5200, L501.9520, L500.4100 #### [facility] [address] [place], [address] RDW SD 47.4 fl High 35.1-43.9 [facility] Comment on above: Performed By: #### L 500.4050, L501.9310, L501.5200, L501.9520, L500.4100 #### [facility] [address] [place], [address] WBC (Bld) [#/Vol] 10.8 10*3/uL Normal 4.4-11.0 [facility] Comment on above: Performed By: #### L 500.4050, L501.9310, L501.5200, L501.9520, L500.4100 #### [facility] [address] [place], [place], [address] Carbon dioxide, total [Moles /volume] in Central venous bloodOrdered By: Laurel Good on 11-28-2024 CO2 [Moles/Vol] 21.2 mmol/L 21.0-32.0 [facility] Chest PA and Lateralon 11-28 Chest PA and Lateral [facility] Imaging Services [address] [place] [address] Chest PA and Lateral MR#: [id number] Acct: [id number] Name: HOLDEN CHILDERS Rep #: [id number] : 1970 F 54 From: Clemencia Latham DO PCP: Dr. Bonifacio Bell MD Status: [facility] ER Study: Chest PA and Lateral Date of Exam: 11/28/24 Exam# [id number] Ordering Dr: Laurel Good PROCEDURE: CHEST PA AND LATERAL 11/28/2024 REASON FOR EXAM: CHEST PAIN TECHNIQUE: Frontal and lateral views of the chest. COMPARISON: None FINDINGS: Hardware: None Heart: The heart size is normal. Mediastinum: The mediastinal contour is unremarkable. Lungs: The lungs are clear. Bones: The bones are unremarkable. RAD/Chest PA and Lateral IMPRESSION: NO ACUTE FINDINGS. Reading Location: [facility] CC: Dr. Bonifacio Bell MD; MINERVA Martinez Chemical Checker: Signed Normal [facility] Chloride assayOrdered By: Kinjal Good on 11-28-2024 Chloride [Moles/Vol] 103 mmol/L 98-108 [facility] Comprehensive Metabolic Prof ilon 11-28-2024 Albumin [Mass/Vol] 4.7 g/dL Normal 3.5-5.0 [facility] Comment on above: Performed By: #### L 500.4050, L501.9310, L501.5200, L501.9520, L500.4100 #### [facility] [address] [place], [address] Albumin/Globulin [Mass ratio] 1.8 {ratio} Normal 0.9-2.4 [facility] Comment on above: Performed By: #### L 500.4050, L501.9310, L501.5200, L501.9520, L500.4100 #### [facility] [address] [place], [address] ALK PHOS 104 U/L Normal 35-104 [facility] Comment on above: Performed By: #### L 500.4050, L501.9310, L501.5200, L501.9520, L500.4100 #### [facility] [address] [place], [address] ALT [Catalytic activity/Vol] 23 U/L Normal <=34 [facility] Comment on above: Performed By: #### L 500.4050, L501.9310, L501.5200, L501.9520, L500.4100 #### [facility] [address] [place], [address] AST [Catalytic activity/Vol] 26 U/L Normal <=31 [facility] Comment on above: Performed By: #### L 500.4050, L501.9310, L501.5200, L501.9520, L500.4100 #### [facility] [address] [place], [address] Bilirubin [Mass/Vol] 0.41 mg/dL Normal 0.00-1.30 [facility] Comment on above: Performed By: #### L 500.4050, L501.9310, L501.5200, L501.9520, L500.4100 #### [facility] Laboratory [address] [place], [address] BUN/CRE 18.1 RATIO Normal 10-20 [facility] Comment on above: Performed By: #### L 500.4050, L501.9310, L501.5200, L501.9520, L500.4100 #### [facility] [address] [place], [address] Calcium [Mass/Vol] 9.8 mg/dL Normal 7.6-11.0 [facility] Comment on above: Performed By: #### L 500.4050, L501.9310, L501.5200, L501.9520, L500.4100 #### [facility] [address] [place], [address] Chloride [Moles/Vol] 103 mmol/L Normal 98-108 [facility] Comment on above: Performed By: #### L 500.4050, L501.9310, L501.5200, L501.9520, L500.4100 #### [facility] [address] [place], [address] CO2 [Moles/Vol] 21.2 mmol/L Normal 21.0-32.0 [facility] Comment on above: Performed By: #### L 500.4050, L501.9310, L501.5200, L501.9520, L500.4100 #### [facility] [address] [place], [address] Creatinine [Mass/Vol] 0.91 mg/dL Normal 0.70-1.20 [facility] Comment on above: Performed By: #### L 500.4050, L501.9310, L501.5200, L501.9520, L500.4100 #### [facility] [address] [place], [address] ECRCL 63.59 ml/min Normal 50-250 [facility] Comment on above: Performed By: #### L 500.4050, L501.9310, L501.5200, L501.9520, L500.4100 #### [facility] [address] [place], [address] GAP 15 Normal 5-15 [facility] Comment on above: Performed By: #### L 500.4050, L501.9310, L501.5200, L501.9520, L500.4100 #### [facility] [address] [place], [address] GFR/1.73 sq M.predicted among non-blacks MDRD (S/P/Bld) [Vol rate/Area] 75 mL/min/{1.73_m2} Normal >60 [facility] Comment on above: Result Comment: mL/m in/1.73m2 CKD-EPI Creatinine Equation (2020) Performed By: #### L 500.4050, L501.9310, L501.5200, L501.9520, L500.4100 #### [facility] [address] [place], [address] Globulin (S) [Mass/Vol] 2.7 g/dL Normal 2.2-4.2 [facility] Comment on above: Performed By: #### L 500.4050, L501.9310, L501.5200, L501.9520, L500.4100 #### [facility] [address] [place], [address] Glucose [Mass/Vol] 94 mg/dL Normal 70-99 [facility] Comment on above: Performed By: #### L 500.4050, L501.9310, L501.5200, L501.9520, L500.4100 #### [facility] [address] [place], [address] Potassium [Moles/Vol] 3.8 mmol/L Normal 3.3-5.1 [facility] Comment on above: Performed By: #### L 500.4050, L501.9310, L501.5200, L501.9520, L500.4100 #### [facility] [address] [place], [address] Sodium [Moles/Vol] 139 mmol/L Normal 133-145 [facility] Comment on above: Performed By: #### L 500.4050, L501.9310, L501.5200, L501.9520, L500.4100 #### [facility] [address] [place], [address] T PROT 7.4 g/dL Normal 5.9-8.4 [facility] Comment on above: Performed By: #### L 500.4050, L501.9310, L501.5200, L501.9520, L500.4100 #### [facility] [address] [place], [address] Urea nitrogen [Mass/Vol] 17 mg/dL Normal 4-19 [facility] Comment on above: Performed By: #### L 500.4050, L501.9310, L501.5200, L501.9520, L500.4100 #### [facility] [address] [place], [address] D-Dimer Quantitative (DVT/PE )on 11-28-2024 D-DIMER QUANT 0.27 FEU/ug/m Normal 0.27-0.49 [facility] Comment on above: Result Comment: NORM AL D-Dimer level (<0.50) indicates no DVT or PE. Performed By: #### L 300.8000 ####[facility] [address] [place], [address] D-dimer measurement for deep venous thrombosisOrdered By: Laurel Good on 11-28-2024 D-Dimer Quantitative (PE/DVT) 0.27 FEU/ug/m 0.27-0.49 [facility] Comment on above: NORMAL D-Dimer level (<0.50) indicates no DVT or PE. Emergency Department Summary on 11-28-2024 Emergency Department Summary [facility] Medical Records Department [address] [place] [address] Emergency Department Summary 11/28/24 MR#: [id number] Acct: [id number] Name: HOLDEN CHILDERS Rep #: [id number] : 1970 54 From: Laurel PALMA PCP: Dr. Bonifacio Bell MD Status:DEP ER Location: ED HPI History of Present Illness Chief Complaint: Chest Pain Narrative Narrative: Patient presenting today with epigastric burning abdominal pain that radiates to the mid sternum she has had since last night. She reports concerns given previous NSTEMI about 1 year ago at [facility], she does follow with cardiology there. She takes Brilinta and aspirin. She had a echocardiogram performed Friday that according to her showed an LVEF of 45 to 50%. She reports mild shortness of breath since yesterday. She denies fevers, chills, and vomiting. She has a PMH of CAD, fibromyalgia, anxiety, depression, and HTN. PE Risk Factors: Negative for Recent Travel/Surgery, Recent Immobilization, Prior DVT or PE or Cancer [facility] Medical History Myocardial infarction Shingles Anemia Gastritis Fatigue History of suicide attempt Migraine CAD (coronary artery disease) Anxiety and depression Health care maintenance Fibromyalgia Vision problems GERD (gastroesophageal reflux disease) Irritable bowel syndrome Recurrent infections High blood cholesterol Heart failure High blood pressure Hearing problem Heart disease Head ache Gastrointestinal problem Emotional problems Carpal tunnel syndrome History of blood transfusion Back pain Seasonal allergies Home Medications ???Medication ???Instructions ???Recorded ???Last Taken ???Type albuterol sulfate 90 mcg/actuation 2 puff inhalation Q6H PRN Unknown History aerosol inhaler shortness of breath or wheezing aspirin 81 mg tablet,delayed 81 mg PO QDAY heart health 4 11/28/24 History release (Adult Aspirin Regimen) atorvastatin 40 mg tablet (Lipitor) 40 mg PO QDAY cholesterol 06/1411/27/24 History biotin 5 mg capsule 5 mg PO QDAY supplement 06/14/24 0 11/27/24 History cholecalciferol (vitamin D3) 25 25 mcg PO QDAY supplement 06/14/24 11/28/24 History mcg (1,000 unit) capsule fluticasone propionate 50 1 spray intranasal QDAY allergy 11/28/24 History mcg/actuation nasal spray,suspension (Flonase Allergy Relief) lysine 1,000 mg tablet 1,000 mg PO QDAY cold sore 4 11/28/24 History ticagrelor 90 mg tablet (Brilinta) 90 mg PO BID blood thinner 06/1411/28/24 History metoprolol succinate 25 mg 25 mg PO BID blood pressure 11/28/24 History tablet,extended release 24 hr duloxetine 30 mg capsule,delayed 30 mg PO BID 07/29/24 11/28/24 His tory release magnesium oxide 400 mg PO BID #180 tabs 08/09/24 0 11/27/24 Rx montelukast 10 mg tablet 10 mg PO QDAY #90 tabs 08/26/24 Rx valacyclovir 1 gram tablet 1,000 mg PO TID #21 tabs 11/15/24 Unknown Rx buspirone 7.5 mg tablet 7.5 mg PO DAILY 11/28/24 11/28/24 History cyclobenzaprine 5 mg tablet 5 mg PO QHS 11/28/24 11/27/24 Hist ory Allergy/AdvReac Type Severity Reaction Status Date / Time codeine Allergy Intermediate Vomiting Verified 11/28/24 18:05 Family History Father Angina at rest Myocardial infarction, Onset Age: 70 High cholesterol Mother History of blood transfusion Anxiety Hypertension Aunt Cancer breast Grandfather Myocardial infarction, Onset Age: 70 Sister Asthma Surgical History S/P right coronary artery (RCA) stent placement H/O section History of hysterectomy H/O wisdom tooth extraction S/P foot surgery Hx of tonsillectomy S/P appendectomy Social History household members: other details: ex in laws housing: house current occupational status: employed 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 Smoking Status: Current every day smoker tobacco type: e-cigarettes Tobacco: How many years used: 26 alcohol intake: never substance use type: marijuana and other details: CBD ,delta 8 what type of physical activity do you participate in: yoga frequency: 3-4 times per week duration: 15-30 minutes/day seatbelt use: always do you feel safe at home: Yes ROS ROS ED Constitutional Constitutional ED: Denies chills or fever(s) Cardiovascular Cardiovascular: Reports chest pain; Denies palpitations Respiratory/Chest Respiratory/Chest: Reports dyspnea on exertion; Denies cough Gastrointestinal Gastrointestinal: Denies abdominal pain, nausea or vomiting Musculoskeletal Musculoskel (more content not included)... Normal [facility] Eosinophil percentageOrdered By: Laurel Good on 11-28-2024 Eosinophils/100 WBC (Bld) 1.2 % 0-5 [facility] Erythrocyte distribution wid th (RBC) [Ratio]Ordered By: Laurel Good on 11-28-2024 Erythrocyte distribution width (RBC) [Entitic vol] 47.4 fL High 35.1-43.9 [facility] Erythrocyte distribution wid th ratioOrdered By: Laurel Good on 11-28-2024 Erythrocyte distribution width (RBC) [Ratio] 13.9 % 11.6-14.6 [facility] Erythrocyte distribution wid th standard deviationOrdered By: Laurel Good on 11-28-2024 Erythrocyte distribution width (RBC) [Ratio] 47.4 fl High 35.1-43.9 [facility] Estimation of creatinine darlyn aranceOrdered By: Laurel Good on 11-28-2024 Estimated Creatinine Clearance Calc 63.59 ml/min 50-250 [facility] GFR/1.73 sq M.predicted eyal g non-blacks MDRD (S/P/Bld) [Vol rate/Area]Ordered By: Laurel Good on 11-28-2024 Estimated GFR (MDRD) Non-Af Amer 75 >60 [facility] Comment on above: mL/min/1.73m2 CKD-EP I Creatinine Equation (2020) Glomerular filtration rate ( GFR) estimation/1.73 sq m using serum, plasma, or whole bOrdered By: Laurel Good on 11-28-2024 GFR/1.73 sq M.predicted among non-blacks MDRD (S/P/Bld) [Vol rate/Area] 75 mL/min/{1.73_m2} >60 [facility] Comment on above: mL/min/1.73m2 CKD-EP I Creatinine Equation (2020) Hematocrit Auto (Bld) [Volum e fraction]Ordered By: Laurel Good on 11-28-2024 Hematocrit (Bld) [Volume fraction] 42.5 % 37-47 [facility] Hemoglobin measurementOrdere d By: Laurel Good on 11-28-2024 Hemoglobin (Bld) [Mass/Vol] 14.4 g/dL 12.0-15.0 [facility] Immature granulocytes/100 WB C Auto (Bld)Ordered By: Laurel Good on 11-28-2024 Immature granulocytes/100 WBC (Bld) 0.400 % 0.0-0.9 [facility] Comment on above: IG% - Immature Granu locytes (promyelocytes, myelocytes and metamyelocytes) > 1% indicates that a LEFT SHIFT is Present. L499.0042on 11-28-2024 Trop T High Sen 9 ng/L Normal <=14 [facility] Comment on above: Performed By: #### L 499.0042 ####[facility] [address] [place], [address] L501.4021on 11-28-2024 Trop T High Sen 8 ng/L Normal <=14 [facility] Comment on above: Performed By: #### L 500.4050, L501.9310, L501.5200, L501.9520, L500.4100 #### [facility] [address] [place], [address] Laboratory - Chemistry and C hemistry - challengeOrdered By: Laurel Good on 11-28-2024 AST [Catalytic activity/Vol] 26 U/L <32 [facility] Lipaseon 11-28-2024 Lipase [Catalytic activity/Vol] 50 U/L Normal 13-75 [facility] Comment on above: Result Comment: Naveen abdullahi note: LIPASE revised reference range effective 22. New Lipase methodology. Expected to produce lower values than the previous assay method. NEW Reference Range: 13 - 75 U/L Performed By: #### L 500.4050, L501.9310, L501.5200, L501.9520, L500.4100 #### [facility] [address] [place], [address] Lipase measurementOrdered By : Laurel Good on 11-28-2024 Lipase [Catalytic activity/Vol] 50 U/L 13-75 [facility] Comment on above: Please note:LIPASE r evised reference range effective 22. New Lipase methodology. Expected to produce lower values than the previous assay method. NEW Reference Range: 13 - 75 U/L Lymphocytes Auto (Unsp spec) [#/Vol]Ordered By: Laurel Good on 11-28-2024 Lymphocytes (Bld) [#/Vol] 2.60 10*3/uL 0.83-4.51 [facility] Lymphocytes/100 WBC Auto (Un sp spec)Ordered By: Laurel Good on 11-28-2024 Lymphocytes/100 WBC (Bld) 24.1 % 19-41 [facility] MCV (mean corpuscular volume ) determinationOrdered By: Laurel Good on 11-28-2024 MCV (RBC) [Entitic vol] 93.8 fL 81-99 [facility] Mean corpuscular hemoglobin (MCH) determinationOrdered By: Laurel Good on 11-28-2024 MCH (RBC) [Entitic mass] 31.8 pg 27.0-32.0 [facility] Mean corpuscular hemoglobin concentration (MCHC) determinationOrdered By: Laurel Good on 11-28-2024 MCHC (RBC) [Mass/Vol] 33.9 g/dL 32-36 [facility] Mean platelet volume determi nationOrdered By: Laurel Good on 11-28-2024 Platelet mean volume (Bld) [Entitic vol] 9.0 fL 6.2-12.0 [facility] Monocyte percentageOrdered B y: Laurel Good on 11-28-2024 Monocytes/100 WBC (Bld) 5.1 % 0-10 [facility] Neutrophil percentageOrdered By: Laurel Good on 11-28-2024 Neutrophils/100 WBC (Bld) 68.6 % 47-70 [facility] Nucleated red blood cell per centageOrdered By: Laurel Good on 11-28-2024 Nucleated RBC/100 WBC (Bld) [Ratio] 0 % 0-5 [facility] Platelet countOrdered By: Kinjal Good on 11-28-2024 Platelets (Bld) [#/Vol] 201 10*3/uL 150-450 [facility] Potassium (Unsp spec) [Mass/ Vol]Ordered By: Luarel Good on 11-28-2024 Potassium [Moles/Vol] 3.8 mmol/L 3.3-5.1 [facility] Potassium measurement (mass/ volume)Ordered By: Laurel Good on 11-28-2024 Potassium (Unsp spec) [Mass/Vol] 3.8 mmol/L 3.3-5.1 [facility] RBC Auto (Bld) [#/Vol]Ordere d By: Laurel Good on 11-28-2024 RBC (Bld) [#/Vol] 4.53 10*6/uL 4.2-5.4 [facility] Serum creatinine measurement (mass/volume)Ordered By: Laurel Good on 11-28-2024 Creatinine [Mass/Vol] 0.91 mg/dL 0.70-1.20 [facility] Serum globulin measurementOr dered By: Laurel Good on 11-28-2024 Globulin (S) [Mass/Vol] 2.7 g/dL 2.2-4.2 [facility] Serum glucose measurement (m ass/volume)Ordered By: Laurel Good on 11-28-2024 Glucose [Mass/Vol] 94 mg/dL 70-99 [facility] Serum or plasma alanine arshad otransferase (ALT) measurementOrdered By: Laurel Good on 11-28-2024 ALT [Catalytic activity/Vol] 23 U/L <35 [facility] Serum or plasma albumin alyssa urement (mass/volume)Ordered By: Laurel Good on 11-28-2024 Albumin [Mass/Vol] 4.7 g/dL 3.5-5.0 [facility] Serum or plasma albumin/glob ulin mass ratioOrdered By: Laurel Good on 11-28-2024 Albumin/Globulin [Mass ratio] 1.8 {ratio} 0.9-2.4 [facility] Serum or plasma alkaline marlo sphatase measurementOrdered By: Laurel Good on 11-28-2024 ALP [Catalytic activity/Vol] 104 U/L 35-104 [facility] Serum or plasma calcium alyssa urement (mass/volume)Ordered By: Laurel Good on 11-28-2024 Calcium [Mass/Vol] 9.8 mg/dL 7.6-11.0 [facility] Serum or plasma urea nitroge n measurement (mass/volume)Ordered By: Laurel Good on 11-28-2024 Urea nitrogen [Mass/Vol] 17 mg/dL 4-19 [facility] Sodium levelOrdered By: Rustam Good on 11-28-2024 Sodium [Moles/Vol] 139 mmol/L 133-145 [facility] Total proteinOrdered By: Rudy Good on 11-28-2024 Protein [Mass/Vol] 7.4 g/dL 5.9-8.4 [facility] Troponin T.cardiac High sens itivity method [Mass/Vol]Ordered By: Laurel Good on 11-28-2024 Troponin T High Sensitivity 2 Hour 9 ng/L <14 [facility] Troponin T High Sensitivity 8 ng/L <14 [facility] Troponin T.cardiac [Mass/vol ume] in Serum or Plasma by High sensitivity methodOrdered By: Laurel Good on 11-28-2024 Troponin T.cardiac High sensitivity method [Mass/Vol] 9 ng/L <14 [facility] Troponin T.cardiac High sensitivity method [Mass/Vol] 8 ng/L <14 [facility] White blood cell (WBC) count Ordered By: Laurel Good on 11-28-2024 WBC (Bld) [#/Vol] 10.8 10*3/uL 4.4-11.0 [facility] Urgent Care Visit Reporton 0 11-15-2024 Urgent Care Visit Report [facility] [address], [address] [place] [address] OFFICE VISIT Date of Service: 11/15/24 MR#: [id number] Acct: [id number] Name: HOLDEN CHILDERS Rep #: [id number] : 1970 Provider: MINERVA Childers Age/Sex: 54/F Location: [facility] Status: Signed Intake Vital Signs 10/15/24 08:12 11/15/24 14:21 Height 5 ft 5 in BP 114/66 Blood Pressure Location Lt brachial Position Sitting Respiration 14 Pulse 70 Pulse Source NIBP Temp 98.4 F Temp Source Oral Pulse Oximetry (%) 98 Oxygen Delivery Method room air Intake Visit Reasons: CONCERN FOR SHINGLES ON BACK Chief Complaint: rash Project Director Required: No Is patient in pain?: No Allergies codeine Allergy (Intermediate, Verified 11/15/24 14:21) Vomiting Is last menstrual period known: No Post menopausal: No Patient : No Have you fallen in the past year?: No Nurse's Note: 5-7 small red dots under right side of bra x 3 days. itching and sunburn feeling. concern for shingles PFSH Medical History (Updated 11/15/24 @ 14:29 by Jeremiah PALMA, PA) Shingles Anemia Gastritis Fatigue History of suicide attempt Migraine CAD (coronary artery disease) Anxiety and depression Health care maintenance Fibromyalgia Vision problems GERD (gastroesophageal reflux disease) Irritable bowel syndrome Recurrent infections High blood cholesterol Heart failure High blood pressure Hearing problem Heart disease Head ache Gastrointestinal problem Emotional problems Carpal tunnel syndrome History of blood transfusion Back pain Seasonal allergies Surgical History History of hysterectomy H/O wisdom tooth extraction S/P foot surgery Hx of tonsillectomy S/P appendectomy Family History Father Angina at rest Myocardial infarction, Onset Age: 70 High cholesterol Mother History of blood transfusion Anxiety Hypertension Aunt Cancer breast Grandfather Myocardial infarction, Onset Age: 70 Sister Asthma Social History household members: other details: ex in laws housing: house current occupational status: employed 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 Smoking Status: Former smoker Tobacco: How many years used: 26 alcohol intake: current alcohol intake frequency: a few times a month Alcohol type: beer substance use type: other details: CBD ,delta 8 what type of physical activity do you participate in: yoga frequency: 3-4 times per week duration: 15-30 minutes/day seatbelt use: always do you feel safe at home: Yes HPI HPI Chief Complaint: rash Details: HOLDEN CHILDERS, is a 54 F who presents to the office today for initial evaluation less than 48-hour history of clustered erythematous base vesicular lesions right lateral posterior chest wall of u nknown etiology. Chickenpox as a child. No history of trauma to the same. Localized burning sensation appreciated particularly over the last 24 hours. No yyec-szb-[id number] products taken to assist. No other associated symptoms and no other alleviating/aggravat ing factors. ROS Const Constitutional: No other (As above) Exam Const General: cooperative, healthy appearing and no acute distress Nutritional Appearance: average body habitus Orientation: alert and awake HENMT Head: normal to inspection Ears: hearing grossly normal bilaterally and EAC's normal Resp Effort Inspection: normal respiratory effort and able to speak in complete sentences Cardio Rate: regular rate Pulses: radial pulses present Skin General: no rashes or lesions noted Other: Except clustered erythematous base vesicular lesions and approximately 3 cm diameter to the left lateral posterior chest wall Neuro General: patient alert, patient awake and patient oriented x3 Cognition: normal cognition Speech: speech normal Psych Appearance: grossly normal Mental Status: mental status grossly normal Mood: congruent mood Affect: normal affect Speech and Movement: speech and movement normal Attitude: cooperative Coding Level of Care Code Off vis,est,level 3 Diagnoses Shingles B02.9 Assessment and Plan Assessment and Plan (1) Shingles: Status: Acute Plan: Madisyn acyclovir and prednisone as prescribed today. Supportive measures as instructed today. Pap with PCP in 7 to 10 days should symptoms not improve, sooner should symptoms only worsen or any other concerns develop. Patient states acknowledging understanding all the above. This note was generated with RingCaptcha dictation software. It may contain incorrect words, spelling, and punctuation that were not noted in checking the note before signing. Medi (more content not included)... Normal [facility] Office Visit Reporton 2024 Office Visit Report [facility] [address] [address] OFFICE VISIT Date of Service: 10/15/24 MR#: [id number] Acct: [id number] Patient: HOLDEN CHILDERS Rep #: [id number] : 1970 Provider: MINERVA Larose Age/Sex: 54/F Location: [facility] Status: Signed Intake Vital Signs 07/29/24 16:27 10/15/24 08:12 Height 5 ft 5 in 5 ft 5 in Weight: 129 lb BMI 21.4 BP 124/60 H Blood Pressure Location Lt brachial Position Sitting Respiration 16 Pulse 47 L Pulse Source Monitor Temp 97.7 F L Temp Source Temporal Pulse Oximetry (%) 99 Oxygen Delivery Method room air 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 Visit 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/ [facility] Chief Complaint: hosp f/u Allergies codeine Allergy (Intermediate, Verified 07/29/24 16:18) Vomiting Office Procedures [facility] Billing Sheet Testing Pre-Employment Drug Screen [facility] [place]: Yes 10/21/24 1738 Date Hubert PALMA Cosigner Signature: Date (if applicable) CC: Normal [facility] Absolute neutrophil countOrd ered By: Bonifacio Bell on 08-02-2024 Neutrophils (Bld) [#/Vol] 3.8 10*3/uL 2.0-7.7 [facility] Albumin to globulin ratioOrd ered By: Bonifacio Bell on 08-02-2024 Albumin/Globulin [Mass ratio] 1.1 {ratio} 0.9-2.4 [facility] Basophil percentageOrdered B y: Bonifacio Bell on 08-02-2024 Basophils/100 WBC (Bld) 1.0 % 0-1 [facility] Bilirubin, totalOrdered By: Bonifacio Bell on 08-02-2024 Bilirubin [Mass/Vol] 0.40 mg/dL 0.20-1.00 [facility] Comment on above: For patients on eltr ombopag therapy, use of Dimension [place] TBIL is not recommended. Blood urea nitrogen (BUN)/cr eatinine ratioOrdered By: Maritabonniepj Daverafy on 08-02-2024 Urea nitrogen/Creatinine [Mass ratio] 10.0 mg/mg 10- [facility] CBC W/Diff, Automatedon 12- Absolute Lymph 2.13 X10 3/uL Normal 0.83-4.51 [facility] Comment on above: Performed By: #### L 100.0100, L500.4050, L506.0400, L501.9520 ####[facility] [address] [place], [address] Absolute Neut 3.8 X10 3/uL Normal 2.0-7.7 [facility] Comment on above: Performed By: #### L 100.0100, L500.4050, L506.0400, L501.9520 ####[facility] [address] [place], [address] Basophils/100 WBC (Bld) 1.0 % Normal 0-1 [facility] Comment on above: Performed By: #### L 100.0100, L500.4050, L506.0400, L501.9520 ####[facility] [address] [place], [address] Eosinophils/100 WBC (Bld) 4.0 % Normal 0-5 [facility] Comment on above: Performed By: #### L 100.0100, L500.4050, L506.0400, L501.9520 ####[facility] [address] [place], [address] Erythrocyte distribution width (RBC) [Ratio] 16.2 % High 11.6-14.6 [facility] Comment on above: Performed By: #### L 100.0100, L500.4050, L506.0400, L501.9520 ####[facility] [address] [place], [address] Hematocrit (Bld) [Volume fraction] 29.4 % Low 37-47 [facility] Comment on above: Performed By: #### L 100.0100, L500.4050, L506.0400, L501.9520 ####[facility] [address] [place], [address] Hemoglobin (Bld) [Mass/Vol] 9.3 g/dL Low 12.0-15.0 [facility] Comment on above: Performed By: #### L 100.0100, L500.4050, L506.0400, L501.9520 ####[facility] [address] [place], [address] IG% 0.400 Normal 0.0-0.9 [facility] Comment on above: Result Comment: IG% - Immature Granulocytes (promyelocytes, myelocytes and metamyelocytes) > 1% indicates that a LEFT SHIFT is Present. Performed By: #### L 100.0100, L500.4050, L506.0400, L501.9520 ####[facility] [address] [place], [address] Lymphocytes/100 WBC (Bld) 31.4 % Normal 19-41 [facility] Comment on above: Performed By: #### L 100.0100, L500.4050, L506.0400, L501.9520 ####[facility] [address] [place], [address] MCH (RBC) [Entitic mass] 30.1 pg Normal 27.0-32.0 [facility] Comment on above: Performed By: #### L 100.0100, L500.4050, L506.0400, L501.9520 ####[facility] [address] [place], [address] MCHC (RBC) [Mass/Vol] 31.6 g/dL Low 32-36 [facility] Comment on above: Performed By: #### L 100.0100, L500.4050, L506.0400, L501.9520 ####[facility] [address] [place], [address] MCV (RBC) [Entitic vol] 95.1 fL Normal 81-99 [facility] Comment on above: Performed By: #### L 100.0100, L500.4050, L506.0400, L501.9520 ####[facility] [address] [place], [address] Monocytes/100 WBC (Bld) 7.8 % Normal 0-10 [facility] Comment on above: Performed By: #### L 100.0100, L500.4050, L506.0400, L501.9520 ####[facility] [address] [place], [address] Neutrophils/100 WBC (Bld) 55.4 % Normal 47-70 [facility] Comment on above: Performed By: #### L 100.0100, L500.4050, L506.0400, L501.9520 ####[facility] [address] [place], [address] Nucleated RBC (Bld) [#/Vol] 0 10*3/uL Normal 0-5 [facility] Comment on above: Performed By: #### L 100.0100, L500.4050, L506.0400, L501.9520 ####[facility] [address] [place], [address] Platelet mean volume (Bld) [Entitic vol] 9.2 fL Normal 6.2-12.0 [facility] Comment on above: Performed By: #### L 100.0100, L500.4050, L506.0400, L501.9520 ####[facility] [address] [place], [address] Platelets (Bld) [#/Vol] 325 10*3/uL Normal 150-450 [facility] Comment on above: Performed By: #### L 100.0100, L500.4050, L506.0400, L501.9520 ####[facility] [address] [place], [address] RBC (Bld) [#/Vol] 3.09 10*6/uL Low 4.2-5.4 [facility] Comment on above: Performed By: #### L 100.0100, L500.4050, L506.0400, L501.9520 ####[facility] [address] [place], [address] RDW SD 55.9 fl High 35.1-43.9 [facility] Comment on above: Performed By: #### L 100.0100, L500.4050, L506.0400, L501.9520 ####[facility] [address] [place], [address] WBC (Bld) [#/Vol] 6.8 10*3/uL Normal 4.4-11.0 [facility] Comment on above: Performed By: #### L 100.0100, L500.4050, L506.0400, L501.9520 ####[facility] [address] [place], [address] Carbon dioxide measurementOr dered By: Bonifacio Bell on 08-02-2024 CO2 [Moles/Vol] 26.0 mmol/L 21.0-32.0 [facility] Chloride measurementOrdered By: Bonifacio Bell on 08-02-2024 Chloride [Moles/Vol] 109 mmol/L High 98-107 [facility] Comprehensive Metabolic Prof ilon 08-02-2024 Albumin [Mass/Vol] 3.6 g/dL Normal 3.2-5.0 [facility] Comment on above: Performed By: #### L 100.0100, L500.4050, L506.0400, L501.9520 ####[facility] [address] [place], [address] Albumin/Globulin [Mass ratio] 1.1 {ratio} Normal 0.9-2.4 [facility] Comment on above: Performed By: #### L 100.0100, L500.4050, L506.0400, L501.9520 ####[facility] [address] [place], [address] ALK P 85 U/L Normal 45-117 [facility] Comment on above: Performed By: #### L 100.0100, L500.4050, L506.0400, L501.9520 ####[facility] [address] [place], [address] ALT [Catalytic activity/Vol] 17 U/L Normal 13-56 [facility] Comment on above: Performed By: #### L 100.0100, L500.4050, L506.0400, L501.9520 ####[facility] [address] [place], [address] AST [Catalytic activity/Vol] 14 U/L Low 15-37 [facility] Comment on above: Performed By: #### L 100.0100, L500.4050, L506.0400, L501.9520 ####[facility] [address] [place], [address] Bilirubin [Mass/Vol] 0.40 mg/dL Normal 0.20-1.00 [facility] Comment on above: Result Comment: For patients on eltrombopag therapy, use of Dimension [place] TBIL is not recommended. Performed By: #### L 100.0100, L500.4050, L506.0400, L501.9520 ####[facility] [address] [place], [address] BUN/CRE 10.0 RATIO Normal 10-20 [facility] Comment on above: Performed By: #### L 100.0100, L500.4050, L506.0400, L501.9520 ####[facility] [address] [place], [address] CA,Total 9.0 mg/dL Normal 8.5-10.1 [facility] Comment on above: Performed By: #### L 100.0100, L500.4050, L506.0400, L501.9520 ####[facility] [address] [place], [address] Chloride [Moles/Vol] 109 mmol/L High 98-107 [facility] Comment on above: Performed By: #### L 100.0100, L500.4050, L506.0400, L501.9520 ####[facility] [address] [place], [address] CO2 [Moles/Vol] 26.0 mmol/L Normal 21.0-32.0 [facility] Comment on above: Performed By: #### L 100.0100, L500.4050, L506.0400, L501.9520 ####[facility] [address] [place], [address] Creatinine [Mass/Vol] 1.10 mg/dL High 0.55-1.02 [facility] Comment on above: Result Comment: The validity of the calculated GFR GFRAA in patients over 70 years has not been determined. Clinical correlation is essential. Performed By: #### L 100.0100, L500.4050, L506.0400, L501.9520 ####[facility] [address] [place], [address] EST GFR - AA 67 mL/min Normal >60 [facility] Comment on above: Result Comment: Afri can Georgian GFR Calc Performed By: #### L 100.0100, L500.4050, L506.0400, L501.9520 ####[facility] [address] [place], [address] GAP 7 Normal 5-15 [facility] Comment on above: Performed By: #### L 100.0100, L500.4050, L506.0400, L501.9520 ####[facility] [address] [place], [address] GFR/1.73 sq M.predicted among non-blacks MDRD (S/P/Bld) [Vol rate/Area] 55 mL/min/{1.73_m2} Low >60 [facility] Comment on above: Result Comment: Non- GFR Calc Performed By: #### L 100.0100, L500.4050, L506.0400, L501.9520 ####[facility] [address] [place], [address] Globulin (S) [Mass/Vol] 3.4 g/dL Normal 2.2-4.2 [facility] Comment on above: Performed By: #### L 100.0100, L500.4050, L506.0400, L501.9520 ####[facility] [address] [place], [address] Glucose [Mass/Vol] 99 mg/dL Normal 74-106 [facility] Comment on above: Performed By: #### L 100.0100, L500.4050, L506.0400, L501.9520 ####[facility] [address] [place], [address] Potassium [Moles/Vol] 3.9 mmol/L Normal 3.5-5.1 [facility] Comment on above: Performed By: #### L 100.0100, L500.4050, L506.0400, L501.9520 ####[facility] [address] [place], [address] Sodium [Moles/Vol] 142 mmol/L Normal 136-145 [facility] Comment on above: Performed By: #### L 100.0100, L500.4050, L506.0400, L501.9520 ####[facility] [address] [place], [address] T PROT 7.0 g/dL Normal 6.4-8.2 [facility] Comment on above: Performed By: #### L 100.0100, L500.4050, L506.0400, L501.9520 ####[facility] [address] [place], [address] Urea nitrogen [Mass/Vol] 11 mg/dL Normal 7-18 [facility] Comment on above: Performed By: #### L 100.0100, L500.4050, L506.0400, L501.9520 ####[facility] [address] [place], [address] Direct serum free thyroxine (FT4) measurementOrdered By: Bonifacio Bell on 08-02-2024 Free T4 [Mass/Vol] 0.89 ng/dL 0.76-1.46 [facility] Eosinophil percentageOrdered By: Bonifacio Bell on 08-02-2024 Eosinophils/100 WBC (Bld) 4.0 % 0-5 [facility] Erythrocyte distribution wid th (RBC) [Ratio]Ordered By: Bonifacio Bell on 08-02-2024 Erythrocyte distribution width (RBC) [Entitic vol] 55.9 fL High 35.1-43.9 [facility] Erythrocyte distribution wid th ratioOrdered By: Bonifacio Bell on 08-02-2024 Erythrocyte distribution width (RBC) [Ratio] 16.2 % High 11.6-14.6 [facility] Estimated glomerular filtrat ion rate (GFR) AmericanOrdered By: Bonifacio Bell on 08-02-2024 Estimated GFR (MDRD) Amer 67 mL/min >60 [facility] Comment on above: GFR Calc Glomerular filtration rate ( GFR) estimationOrdered By: Bonifacio Bell on 08-02-2024 Estimated GFR (MDRD) Non-Af Amer 55 mL/min Low >60 [facility] Comment on above: Non- GFR Calc Glucose measurementOrdered B y: Bonifacio Bell on 08-02-2024 Glucose [Mass/Vol] 99 mg/dL 74-106 [facility] Hematocrit Auto (Bld) [Volum e fraction]Ordered By: Bonifacio Bell on 08-02-2024 Hematocrit (Bld) [Volume fraction] 29.4 % Low 37-47 [facility] Hemoglobin measurementOrdere d By: Bonifacio Bell on 08-02-2024 Hemoglobin (Bld) [Mass/Vol] 9.3 g/dL Low 12.0-15.0 [facility] Immature granulocytes/100 WB C Auto (Bld)Ordered By: Bonifacio Bell on 08-02-2024 Immature granulocytes/100 WBC (Bld) 0.400 % 0.0-0.9 [facility] Comment on above: IG% - Immature Granu locytes (promyelocytes, myelocytes and metamyelocytes) > 1% indicates that a LEFT SHIFT is Present. Laboratory - Chemistry and C hemistry - challengeOrdered By: Bonifacio Bell on 08-02-2024 AST [Catalytic activity/Vol] 14 U/L Low 15-37 [facility] Lymphocytes Auto (Unsp spec) [#/Vol]Ordered By: Bonifacio Bell on 08-02-2024 Lymphocytes (Bld) [#/Vol] 2.13 10*3/uL 0.83-4.51 [facility] Lymphocytes/100 WBC Auto (Un sp spec)Ordered By: Maritabonnielatishakinga Acostachelemarina on 08-02-2024 Lymphocytes/100 WBC (Bld) 31.4 % 19-41 [facility] MCV (mean corpuscular volume ) determinationOrdered By: Bonifacio Bell on 08-02-2024 MCV (RBC) [Entitic vol] 95.1 fL 81-99 [facility] Mean corpuscular hemoglobin (MCH) determinationOrdered By: Bonifacio Bell on 08-02-2024 MCH (RBC) [Entitic mass] 30.1 pg 27.0-32.0 [facility] Mean corpuscular hemoglobin concentration (MCHC) determinationOrdered By: Bonifacio Bell on 08-02-2024 MCHC (RBC) [Mass/Vol] 31.6 g/dL Low 32-36 [facility] Mean platelet volume determi nationOrdered By: Bonifacio Bell on 08-02-2024 Platelet mean volume (Bld) [Entitic vol] 9.2 fL 6.2-12.0 [facility] Monocyte percentageOrdered B y: Bonifacio Bell on 08-02-2024 Monocytes/100 WBC (Bld) 7.8 % 0-10 [facility] Neutrophil percentageOrdered By: Bonifacio Bell on 08-02-2024 Neutrophils/100 WBC (Bld) 55.4 % 47-70 [facility] Nucleated red blood cell per centageOrdered By: Bonifacio Bell on 08-02-2024 Nucleated RBC/100 WBC (Bld) [Ratio] 0 % 0-5 [facility] Platelet countOrdered By: Marita bonniepj Bell on 08-02-2024 Platelets (Bld) [#/Vol] 325 10*3/uL 150-450 [facility] Potassium measurementOrdered By: Bonifacio Bell on 08-02-2024 Potassium [Moles/Vol] 3.9 mmol/L 3.5-5.1 [facility] RBC Auto (Bld) [#/Vol]Ordere d By: Bonifacio Bell on 08-02-2024 RBC (Bld) [#/Vol] 3.09 10*6/uL Low 4.2-5.4 [facility] Serum anion gap measurementO rdered By: Bonifacio Bell on 08-02-2024 Anion gap [Moles/Vol] 7 mmol/L 5-15 [facility] Serum globulin measurementOr dered By: Bonifacio Bell on 08-02-2024 Globulin (S) [Mass/Vol] 3.4 g/dL 2.2-4.2 [facility] Serum or plasma alanine arshad otransferase (ALT) measurementOrdered By: Bonifacio Bell on 08-02-2024 ALT [Catalytic activity/Vol] 17 U/L 13-56 [facility] Serum or plasma albumin alyssa urement (mass/volume)Ordered By: Bonifacio Bell on 08-02-2024 Albumin [Mass/Vol] 3.6 g/dL 3.2-5.0 [facility] Serum or plasma alkaline marlo sphatase measurementOrdered By: Bonifacio Bell on 08-02-2024 ALP [Catalytic activity/Vol] 85 U/L 45-117 [facility] Serum or plasma calcium alyssa urement (mass/volume)Ordered By: Bonifacio Bell on 08-02-2024 Calcium [Mass/Vol] 9.0 mg/dL 8.5-10.1 [facility] Serum or plasma creatinine m easurement (mass/volume)Ordered By: Bonifacio Bell on 08-02-2024 Creatinine [Mass/Vol] 1.10 mg/dL High 0.55-1.02 [facility] Comment on above: The validity of the calculated GFR & GFRAA in patients over 70 years has not been determined. Clinical correlation is essential. Serum or plasma urea nitroge n measurement (mass/volume)Ordered By: Bonifacio Bell on 08-02-2024 Urea nitrogen [Mass/Vol] 11 mg/dL 7-18 [facility] Sodium levelOrdered By: Mey Bell on 08-02-2024 Sodium [Moles/Vol] 142 mmol/L 136-145 [facility] T4 Free Directon 08-02-2024 T4 FREE DIRECT 0.89 ng/dL Normal 0.76-1.46 [facility] Comment on above: Performed By: #### L 500.4050, L501.9310, L501.5200, L501.9520, L500.4100 #### [facility] [address], [address] TSH QnOrdered By: Maritabonnielatishakinga Bell on 08-02-2024 Thyroid Stimulating Hormone (TSH) 0.567 uIU/mL 0.358-3.740 [facility] Thyroid Stim Hormone (TSH)on 08-02-2024 TSH 0.567 uIU/mL Normal 0.358-3.740 [facility] Comment on above: Performed By: #### L 500.4050, L501.9310, L501.5200, L501.9520, L500.4100 #### [facility] [address] [place], [address] Total proteinOrdered By: Bal madrigalkinga Bell on 08-02-2024 Protein [Mass/Vol] 7.0 g/dL 6.4-8.2 [facility] White blood cell (WBC) count Ordered By: Bonifacio Bell on 08-02-2024 WBC (Bld) [#/Vol] 6.8 10*3/uL 4.4-11.0 [facility] Internal Medicine Office Vis iton 07-29-2024 Internal Medicine Office Visit [facility] [place], [place] [address] OFFICE VISIT Date of Service: 07/29/24 MR#: [id number] Acct: [id number] Name: HOLDEN CHILDERS Rep #: [id number] 15 : 1970 Provider: Dr. Bonifacio metcalf MD Age/Sex: 54/F Location: [facility] Status: Signed Intake Vital Signs 07/13/24 12:42 07/29/24 16:27 Height 5 ft 5 in 5 ft 5 in Weight: 129 lb BMI 21.4 BP 124/60 H Blood Pressure Location Lt brachial Position Sitting Respiration 16 Pulse 47 L Pulse Source Monitor Temp 97.7 F L Temp Source Temporal Pulse Oximetry (%) 99 Oxygen Delivery Method room air Intake Visit Reasons: Hospital FU Chief Complaint: hosp f/u Project Director Required: No Accompanied by: Self Is patient in pain?: No Allergies codeine Allergy (Intermediate, Verified 07/29/24 16:18) Vomiting Medications ???Medication ???Instructions ???Recorded ???Confirmed ???Type albuterol sulfate 90 mcg/actuation 2 puff inhalation Q6H PRN 06/14/24 07/29/24 History aerosol inhaler shortness of breath or wheezing aspirin 81 mg tablet,delayed 81 mg PO QDAY heart health 06/14/24 07/29/24 History release (Adult Aspirin Regimen) atorvastatin 40 mg tablet (Lipitor) 40 mg PO QDAY cholesterol 06/14/24 07/29/24 History biotin 5 mg capsule 5 mg PO QDAY supplement 06/14/24 07/29/24 History cholecalciferol (vitamin D3) 25 25 mcg PO QDAY supplement 06/14/24 07/29/24 History mcg (1,000 unit) capsule fluticasone propionate 50 1 spray intranasal QDAY allergy 06/14/24 07/29/24 History mcg/actuation nasal spray,suspension (Flonase Allergy Relief) lysine 1,000 mg tablet 1,000 mg PO QDAY cold sore 06/14/24 07/29/24 History magnesium 200 mg tablet 400 mg PO BID supplement 06/14/24 07/29/24 History ticagrelor 90 mg tablet (Brilinta) 90 mg PO BID blood thinner 06/14/24 07/29/24 History metoprolol succinate 25 mg 25 mg PO BID blood pressure 07/13/24 07/29/24 History tablet,extended release 24 hr duloxetine 30 mg capsule,delayed 30 mg PO BID 07/29/24 07/29/24 History release ferrous sulfate 325 mg (65 mg 325 mg PO QDAY 07/29/24 07/29/24 History iron) tablet (Feosol) pantoprazole 40 mg tablet,delayed 40 mg PO BID 07/29/24 07/29/24 History release PFSH Medical History (Updated 07/29/24 @ 17:[address] Bonifacio Bell MD) Gastritis Fatigue History of suicide attempt Migraine CAD (coronary artery disease) Anxiety and depression Health care maintenance Fibromyalgia Vision problems GERD (gastroesophageal reflux disease) Irritable bowel syndrome Recurrent infections High blood cholesterol Heart failure High blood pressure Hearing problem Heart disease Head ache Gastrointestinal problem Emotional problems Carpal tunnel syndrome History of blood transfusion Back pain Seasonal allergies Surgical History History of hysterectomy H/O wisdom tooth extraction S/P foot surgery Hx of tonsillectomy S/P appendectomy Family History Father Angina at rest Myocardial infarction, Onset Age: 70 High cholesterol Mother History of blood transfusion Anxiety Hypertension Aunt Cancer breast Grandfather Myocardial infarction, Onset Age: 70 Sister Asthma Social History household members: other details: ex in laws housing: house current occupational status: employed 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 Taken to the hospital after she was found following intentional overdose/suicidal attempt. Following stabilization, admitted to inpatient psych. She was discharged just about a week ago. Recommendation was to follow-up at the counseling center. She states that she has been struggling over the last 6 months but had no clear triggers for intentional overdose/suicidal attempt. This was her first attempt. She states that she is saddened by that the hurt she must have caused her son and her ex parents in law whom she currently lives with. Was found by her ex mother in-law who she describes as her best friend. No medication changes were made during her inpatient psych stay. She states that she has been taking duloxetine 30 mg twice daily as (more content not included)... Normal [facility] Basic metabolic 2000 panelon 07-21-2024 Anion gap [Moles/Vol] 9 mmol/L Normal 5-16 [facility] Comment on above: Order Comment: Speci men Type: BLOOD SPECIMENOrdering Facility: [facility] Address: [address] [place] [address] Performed By: #### 2 4321-2 ####[facility] LABORATORYCLIA [id number] [place] [address] [place] Calcium [Mass/Vol] 9.3 mg/dL Normal 8.5-10.5 [facility] Comment on above: Order Comment: Speci men Type: BLOOD SPECIMENOrdering Facility: [facility] Address: [address] [place] [address] Performed By: #### 2 4321-2 ####[facility] LABORATORYCLIA [id number] [place] [address] [place] Chloride [Moles/Vol] 103 mmol/L Normal 98-107 [facility] Comment on above: Order Comment: Speci men Type: BLOOD SPECIMENOrdering Facility: [facility] Address: [address] [place] [address] Performed By: #### 2 4321-2 ####[facility] LABORATORYCLIA [id number] [place] [address] [place] CO2 [Moles/Vol] 28 mmol/L Normal 21-32 [facility] Comment on above: Order Comment: Speci men Type: BLOOD SPECIMENOrdering Facility: [facility] Address: [address] [place] [address] Performed By: #### 2 4321-2 ####[facility] LABORATORYCLIA [id number] [place] [address] [place] Creatinine [Mass/Vol] 0.87 mg/dL Normal 0.51-0.95 [facility] Comment on above: Order Comment: Speci men Type: BLOOD SPECIMENOrdering Facility: [facility] Address: [address] [place] [id number] Result Comment: Sarika ents receiving either N-Acetylcysteine (NAC) or Metamizole prior to venipuncture, may have falsely depressed results. Performed By: #### 2 4321-2 ####[facility] LABORATORYCLIA [id number] [place] [address] [place] Creatinine and Glomerular filtration rate.predicted panel (S/P/Bld) 79 mL/min/1.73m??? Normal >=60 [facility] Comment on above: Order Comment: Balbir howell Type: BLOOD SPECIMENOrdering Facility: [facility] Address: [address] [place] [address] Result Comment: Gina mated Glomerular Filtration Rate (eGFR) is calculated using the 2020 CKD-EPI creatinine equation. This equation utilizes serum creatinine, sex, and age as parameters. The creatinine assay has traceable calibration to isotope dilution-mass spectrometry. Refer to KDIGO guidelines for clinical interpretation. In patients with unstable renal function, e.g. those with acute kidney injury, the eGFR may not accurately reflect actual GFR. Performed By: #### 2 4321-2 ####[facility]ORATORYCLIA [id number] [place] [address] [place] Glucose [Mass/Vol] 89 mg/dL Normal 70-100 [facility] Comment on above: Order Comment: Balbir howell Type: BLOOD SPECIMENOrdering Facility: [facility] Address: [address] [place] [address] Result Comment: The [place] Diabetes Association (ADA) provides guidance for cutoff values for fasting glucose and random glucose. The ADA defines fasting as no caloric intake for at least 8 hours. Fasting plasma glucose results between 100 to 125 mg/dL indicate increased risk for diabetes (prediabetes). Fasting plasma glucose results greater than or equal to 126 mg/dL meet the criteria for diagnosis of diabetes. In the absence of unequivocal hyperglycemia, results should be confirmed by repeat testing. In a patient with classic symptoms of hyperglycemia or hyperglycemic crisis, random plasma glucose results greater than or equal to 200 mg/dL meet the criteria for diagnosis of diabetes. Reference: Standards of Medical Care in Diabetes 2016, [place] Diabetes Association. Diabetes Care. 2016.39(Suppl 1). Results may be falsely elevated after the administration of Sulfapyridine. Results may be falsely depressed after the administration of Sulfasalazine. Performed By: #### 2 4321-2 ####[facility] LABORATORYCLIA [id number] [place] [id number] [place] Potassium [Moles/Vol] 3.6 mmol/L Normal 3.5-5.1 [facility] Comment on above: Order Comment: Speci men Type: BLOOD SPECIMENOrdering Facility: [facility] Address: [address] [place] [address] Performed By: #### 2 4321-2 ####[facility] LABORATORYCLIA [id number] [place] [id number] [place] [facility] Sodium [Moles/Vol] 140 mmol/L Normal 136-145 [facility] Comment on above: Order Comment: Speci men Type: BLOOD SPECIMENOrdering Facility: [facility] Address: [address] [place] [address] Performed By: #### 2 4321-2 ####[facility] LABORATORYCLIA [id number] [place] [id number] [place] Urea nitrogen [Mass/Vol] 11 mg/dL Normal 7-26 [facility] Comment on above: Order Comment: Speci men Type: BLOOD SPECIMENOrdering Facility: [facility] Address: [address] [place] [address] Performed By: #### 2 4321-2 ####[facility] LABORATORYCLIA [id number] [place] [id number] [place] CASE MGT INIT ASSESon 2023 CASE MGT INIT ASSES HNO ID: [id number] Author: MARCELO ALCOCER LISW Service: Care Management Author Type: Industrial Property Appraiser Type: Care Mgt Initial Assessment Filed: 07/21/2024 10:39 Note Text: CARE MANAGEMENT: ASSESSMENT AND DISCHARGE PLAN SERVICE DATE: July 21, 2024 SERVICE TIME: 10:30 PCP: Bautista Manzano MD Primary Contact: Extended Emergency Contact Information Primary Emergency Contact: Hao Childers Address: [address] [place] [address] [place] [facility] Mobile Relation: Son Secondary Emergency Contact: Lidia Mariano Address: [address] [place] [address] [facility] Mobile Relation: Sister Admission Status: Inpatient Insurance Provider: NERISSA BRAR Discharge Planning requested by: Per Department Practice Potential Transition Plans Advance Directives Current Living Arrangements and Support Lives with: Other person(s) Ex Mother in law Stefania and Ex father in law Sathya Type of Residence: Private Residence (House) Does the patient have to climb stairs at home?: Yes;stairs outside the home Support: Children, Family members How do you manage to accomplish the following: Independent: Ambulation;Bathe/Kaye wer;Dress;Meals/Meal Prep;Going to the bathroom;Medication Management;Transport ation to appointments/communi ty Current Services/Equipment Current Post-Acute Service(s): None Discharge Planning Patient Goal(s): General wellness, Be able to go home [place] of Choice Explained: Are you interested in bedside delivery of your medications? No Discharge Planning Participant(s): Patient Patient/Family Comments: Patient feeling great Caregiver Assessment: Caregiver is ready, willing and able to meet the patient's needs as recommended by the inter-professional team: Yes Name of Caregiver: Family Transport at Discharge: Transportation Arrangements: Car Destination: Home Needs Prior to Discharge: Needs Prior to Discharge: Other: See Comment (Medical and psych clearence) Intimate Partner Violence We have begun to talk to patients about safe and healthy relationships because it can have a large impact on your health. Do you feel safe around your partner or ex-partner?: Yes Food Insecurity Within the past 12 months, you worried that your food would run out before you got the money to buy more.: Never true Within the past 12 months, the food you bought just didn't last and you didn't have money to get more.: Never true Transportation Needs In the past 12 months, has lack of transportation kept you from medical appointments or from getting medications?: No In the past 12 months, has lack of transportation kept you from meetings, work, or from getting things needed for daily living?: No Housing Stability In the last 12 months, was there a time when you were not able to pay the mortgage or rent on time?: No At any time in the past 12 months, were you homeless or living in a fpc (including now)?: No Utilities In the past 12 months has the electric, gas, oil, or water company threatened to shut off services in your home?: No Social Information Financial Resources: Employed Post-Acute Discharge Plan: Patient admitted to ICU for hematemesis, HTN, fibromyalgia, recent hospital admission for intentional overdose, UGIB. Patient medically stable transferred to [facility] one to one sitter remains in place Patient presents from [facility] for medical clearance as patient recently dc'd on 07/13 to inpatient psych facility from [facility] for intentional overdose on home medication (Danii, informed hospital staff she wanted to kill herself when asked why she took the medication), had a witnessed seizure while at home x2 Seen patient and introduced self and explained SW role and provided support. One to one in Place She denies SI and HI at this time and feels great. She has struggled with depression for years She had been in counseling She had been working 2 jobs but in October had Hear attack and could only work one job and struggled with bills and moves in with hb-uugwnj-ru-law, independent with ADLs/IADLs prior to admission, uses no DME at baseline, +PCP and insurance, actively working full-time, still drives. Resources for crisis line and suicide line and psychiatric services provided to patient. Discharge planning is to be determined. Psych to see patient today Sw will follow for discharge planning needs if plan is home Vs psych SIGNATURE: OG Pierce PATIENT NAME: Holden Childers DATE: July 21, 2024 TIME: 10:31 AM CONTACT #: [id number] [facility] 07-21-2024 [facility] HNO ID: [id number] Author: TYESHA DAI MD Service: Hospital Medicine Author Type: Physician Type: Discharge Summary Filed: 07/21/2024 13:19 Note Text: DISCHARGE SUMMARY PATIENT NAME: Holden Childers ADMISSION DATE: 07/16/2024 DISCHARGE DATE: 07/21/2024 ATTENDING PHYSICIAN: Tyesha Dai MD Code Status: Full Code Highest Readmission Risk Score: 21 The 30 day readmissions risk score is derived from an internally validated risk model which evaluates patient level characteristics, utilization history, medication orders and lab results up until the day of discharge. Patients with a score of 40 or above are considered highest risk for readmission. Specific patient level drivers will be listed at the bottom of the summary. CONSULTING TEAMS DURING HOSPITALIZATION: Treatment Team: Attending Provider: Tyesha Dai MD Consulting: Roberto Granados, PhD Attending: MR RIC ALCARAZ [facility] consuled REASON FOR HOSPITALIZATION: GI bleeding DIAGNOSIS: Upper GI bleeding Blood loss anemia Major depression CAD OPERATIONS DURING HOSPITALIZATION: None PROCEDURES DURING HOSPITALIZATION: No procedures performed HOSPITAL COURSE: 54 -year-old female with history of hysterectomy, hypertension, fibromyalgia, endometriosis was [facility]24 with unknown drug overdose. It was presumed that she may have taken Lyrica. On review of chart it appears she had a coffee-ground emesis 3 episodes associated with abdominal distention and pain, patient was confused. Patient was admitted to critical care unit with GI bleeding with hematemesis melena leading to acute blood loss anemia in the background of current use of long-term anticoagulation. Additional diagnosis of sepsis metabolic acidosis pneumonitis were also suspected. Patient is having additional medical history of hypertension, anxiety, fibromyalgia, history of coronary artery angioplasty with RCA stent and previous history of AZ. In ICU patient was given octreotide/PPI infusion GI were consulted patient was given 2 units of PRBC and 1 unit of platelets. EGD showed small hiatal hernia with multiple clean-based ulcers with no high risk for bleeding stigmata. GI recommended continue PPI twice a day in the hospital followed by twice a day orally to continue for 2 months on discharge, to resume aspirin 3 days while Brilinta in 5 days. EGD was done on 07/19/2024 Due to this patient will hold aspirin-until 07/22 and Brilinta until 07/24 smoking cessation and THC stop advised.No NSAIDS. GI signed off on 07/19/2025. in the Critical care pt was seen by Psychiatrist and were diagnosed to have Major depression.Cymbalata started for anxiety-depression. UGIB Acute blood loss anemia sp PRBC-Platelets Nonbleeding stomach Ulcers-Multiple. Now asymptomatic clinically Resolved Stable Hemodynamic Monitor Hb May consider IV iron IV PPI to PO PPI CAD Due recent GI bleeding and Post EGD rec per GI : to this patient will hold aspirin-until 07/22 and Brilinta until 07/24 Major depression ?suicidal attempt with Drug OD ? Lyrica Now on Cymbalta Dont start aspirin today Start on 07/22 Start brillianta on 07/24 If new gi bleeding sent to er Protonix BID Fu EGD 2-3 weeks PATIENT CONDITION AT DISCHARGE: Stable DISCHARGE DISPOSITION: Behavioral Health Discharge Physical Exam: VITAL SIGNS: BP 122/76 Pulse 95 Temp 36.9 ?C (98.4 ?F) (Oral) Resp 16 Ht 165.1 cm (5' 5) Wt 56.4 kg (124 lb 5.4 oz) LMP 04/16/2010 SpO2 98% BMI 20.69 kg/m? GENERAL: Alert, no distress, cooperative SKIN: Skin color, texture, turgor normal. No rashes or lesions. HEAD/SINUSES: No significant findings BACK: Back symmetric, Normal curvature, ROM normal, No CVAT. LUNGS: Lungs clear to auscultation, Good diaphragmatic excursion CARDIAC: Normal S1 and S2; no rubs, murmurs, or gallops EXTREMITIES: Extremities normal, no deformities, edema, clubbing or skin discoloration. Good capillary refill., No ulcers NEURO: Gait normal. Reflexes normal and symmetric. Sensation grossly intact, Cranial nerves II-XII intact The remainder of the physical exam is noncontributory. INFORMATION PROVIDED TO PATIENT: WOUND/SURGICAL SITE CARE: None DIET: Resume pre-hospital diet ACTIVITY: Resume pre-hospital activity ALLERGIES Allergen Reactions Codeine Vomiting DISCHARGE MEDICATION: Medication List START taking these medications nicotine 14 mg/24 hr Commonly known as: NICODERM Apply 1 Patch as directed once daily for 21 days. Start taking on: July 22, [address] 40 mg tablet Commonly known as: PROTONIX Take 1 tablet by mouth two times a day before meals at 6 am and 4 pm. CHANGE how you take these medications aspirin 81 mg chewable tablet Take 1 tablet by mouth once daily. Patient should start on July 22, 2024. Start taking on: July 22, 2024 Wha (more content not included)... Normal [facility] Hemoglobin (Bld) [Mass/Vol] 8.9 g/dL Low 11.5-15.5 [facility] Comment on above: Order Comment: Speci men Type: BLOOD SPECIMENOrdering Facility: [facility] Address: [address] [place] [address] Performed By: #### 7 18-7 ####[facility] LABORATORYCLIA [id number] [place] [id number] [place] Hemoglobin (Bld) [Mass/Vol] 8.5 g/dL Low 11.5-15.5 [facility] Comment on above: Order Comment: Speci men Type: BLOOD SPECIMENOrdering Facility: [facility] Address: [address] [place] [address] Performed By: #### 7 18-7 ####[facility] LABORATORYCLIA [id number] [place] [id number] [place] Hgb Bld-ncon 07-20-2024 Hemoglobin (Bld) [Mass/Vol] 9.5 g/dL Low 11.5-15.5 [facility] Comment on above: Order Comment: Speci men Type: BLOOD SPECIMENOrdering Facility: [facility] Address: [address] [place] [address] Performed By: #### 7 18-7 ####[facility] LABORATORYCLIA [id number] [place] [address] [place] Hemoglobin (Bld) [Mass/Vol] 9.2 g/dL Low 11.5-15.5 [facility] Comment on above: Order Comment: Speci men Type: BLOOD SPECIMENOrdering Facility: [facility] Address: [address] [place] [address] Performed By: #### 7 18-7 ####[facility] LABORATORYCLIA [id number] [place] [address] [place] Hemoglobin (Bld) [Mass/Vol] 9.6 g/dL Low 11.5-15.5 [facility] Comment on above: Order Comment: Speci men Type: BLOOD SPECIMENOrdering Facility: [facility] Address: [address] [place] [address] Performed By: #### 7 18-7 ####[facility] LABORATORYCLIA [id number] [address] [place] ANES POSTPROC EVALon 024 ANES POSTPROC EVAL HNO ID: [id number] Author: MARKY JACOME DO Service: ? Author Type: Anesthesiologist Type: Anesthesia Postprocedure Evaluation Filed: 07/19/2024 08:11 Note Text: POST ANESTHESIA EVALUATION NOTE : 1970 Procedure Summary Date: 07/19/24 Room / Location: [facility] Surgery Anesthesia Start: 733 Anesthesia Stop: 752 Procedure: EGD DIAGNOSTIC Diagnosis: Scheduled Providers: Vlad Cancino MD Responsible Provider: Marky Jacome DO Anesthesia Type: MAC ASA Status: 3 Anesthesia Type: MAC Last Vitals Vitals Value Taken Time BP 109/57 07/19/24 0800 Temp 36.7 ?C (98 ?F) 07/19/24 0750 Pulse 75 07/19/24 0805 Resp 24 07/19/24 0800 SpO2 100 % 07/19/24 0804 Vitals shown include unfiled device data. Post Anesthesia Patient Status Patient Evaluation: PACU. PACU/ICU Patient Condition: stable. Anticipated Disposition: ICU planned admission. Neurological Status: aware and responsive. Pulmonary Status: breathing comfortably on room air Airway Control: returned to baseline unsupported. Cardiovascular Status: stable. Pain Management: clinically adequate Postoperative Hydration: acceptable. Intraoperative Events: no significant anesthesia events Post Operative Nausea/Vomiting Status: no significant post operative nausea or vomiting Recommendation: continue current plan of care. Anesthesia Observations No Documentation SIGNATURE: Marky Jacome DO PATIENT NAME: Holden Childers DATE: July 19, 2024 TIME: 8:11 AM CSN: [id number] [facility] ANES PRE-OPon 07-19-2024 ANES PRE-OP HNO ID: [id number] Author: MARKY JACOME DO Service: ? Author Type: Anesthesiologist Type: Anesthesia Preprocedure Evaluation Filed: 07/19/2024 07:25 Note Text: ANESTHESIOLOGY DAY OF SURGERY NOTE : 1970 Procedure Information Date/Time: 07/19/24 0730 Scheduled providers: Vlad Cancino MD Procedure: EGD DIAGNOSTIC Location: [facility] Surgery Estimated body mass index is 23.11 kg/m? as calculated from the following: Height as of this encounter: 165.1 cm (5' 5). Weight as of this encounter: 63 kg (138 lb 14.2 oz). Most recent hematocrit and potassium results: Hematocrit 21.3 07/19/2024 Potassium 3.3 07/19/2024 Relevant Problems NEURO-PSYCH (+) History of AZ (myocardial infarction) (+) History of hypertension (+) Sinus headache I - PHYSICAL EVALUATION AIRWAY Patient intubated: No. Tracheostomy tube not present Mallampati: II. TM distance: >3 FB. Neck ROM: full ROM without neurological symptoms. Mouth opening: adequate. Short neck: no. Thick neck: no II - ANESTHESIA PLAN ASA Score: 3 Anesthetic Plan: MAC Beta Babatunde Monitoring Plan Post Procedure Analgesic Plan Informed Consent Anesthetic risks, benefits, alternatives, personnel and consent discussed: yes. Patient / Responsible Democrat agrees to proceed: yes Patient / Surrogate agrees to blood products: Yes Vitals Value Taken Time BP 139/75 07/19/24 0713 Pulse 88 07/19/24 0723 Resp 29 07/19/24 0711 Temp 37.2 ?C (99 ?F) 07/19/24 0710 SpO2 96 % 07/19/24 07 Vitals shown include unfiled device data. Facility-Administere d Medications as of 07/19/2024 Medication Dose Route Frequency [Transfer Hold] hydrOXYzine pamoate 50 mg cap(s) (VISTARIL) 50 mg ORAL q 6 H PRN [Transfer Hold] DULoxetine 30 mg cap(s) (CYMBALTA) 30 mg ORAL DAILY [COMPLETED] prochlorperazine 5 mg injection (COMPAZINE) 5 mg INTRAVENOUS ONCE [COMPLETED] diphenhydrAMINE 25 mg injection (BENADRYL) 25 mg INTRAVENOUS ONCE [COMPLETED] magnesium sulfate iv piggyback in sterile water 2 g 50 mL 2 g INTRAVENOUS ONCE [Transfer Hold] cefTRIAXone 2 g in D5W 100 mL Vial-Bag (ROCEPHIN) 2 g INTRAVENOUS q 24 HR [Transfer Hold] pantoprazole 40 mg injection (PROTONIX) 40 mg INTRAVENOUS BID AC (0600/1600) [Transfer Hold] diphenhydrAMINE-maal ox-lidocaine 10 mL oral liquid (BMX 1:1:1) 10 mL ORAL q 4 H PRN [COMPLETED] lactated ringers 1,000 mL iv bolus 1,000 mL INTRAVENOUS ONCE [COMPLETED] pantoprazole 40 mg injection (PROTONIX) 40 mg INTRAVENOUS ONCE [] iv contrast (radiology procedure) INTRAVENOUS DIRECTED PRN [COMPLETED] ondansetron (PF) 4 mg injection (ZOFRAN) 4 mg INTRAVENOUS ONCE [Transfer Hold] NaCl 0.9% iv flush bag 20 mL INTRAVENOUS PRN [COMPLETED] lactated ringers 1,000 mL iv bolus 1,000 mL INTRAVENOUS ONCE [COMPLETED] piperacillin-tazobac garay iv piggyback 3.375 g in dextrose (iso-osmotic) 50 mL (ZOSYN) 3.375 g INTRAVENOUS ONCE [COMPLETED] ondansetron (PF) 4 mg injection (ZOFRAN) 4 mg INTRAVENOUS ONCE [Transfer Hold] levalbuterol 0.63 mg nebulizer solution (XOPENEX) 0.63 mg INHALATION q 6 H PRN [Transfer Hold] octreotide 500 mcg in NaCl 0.9% 100 mL (SandoSTATIN) 50 mcg/hr INTRAVENOUS CONTINUOUS [] lactated ringers iv infusion 75 mL/hr INTRAVENOUS CONTINUOUS [Transfer Hold] ondansetron 4 mg tab(s) (ZOFRAN) 4 mg ORAL q 6 H PRN Or [Transfer Hold] ondansetron (PF) 4 mg injection (ZOFRAN) 4 mg INTRAVENOUS q 6 H PRN [Transfer Hold] scopolamine (delivers 1 mg over 3 days) 1 Patch (TRANSDERM-SCOP) 1 Patch TRANSDERMAL q 72 HR And [Transfer Hold] scopolamine - REMOVE PATCH OTHER q 72 HR And [Transfer Hold] scopolamine - VERIFY patch OTHER q 8 H Outpatient Medications as of 07/19/2024 Medication Sig cholecalciferol (VITAMIN D-3) 5,000 unit tab Take 5,000 Units by mouth once daily. DULoxetine (CYMBALTA) 30 mg capsule Take 1 capsule by mouth once daily. acyclovir (ZOVIRAX) 400 mg tablet TAKE 1 TABLET BY MOUTH TWICE A DAY NEEDED FOR COLD SORES azelastine 0.1% nasal spray Use 1 [place] in each nostril two times a day. cyanocobalamin (VITAMIN B-12) 500 mcg tablet Take by mouth. VOLTAREN ARTHRITIS PAIN 1 % topical gel sodium fluoride (PREVIDENT 5000 PLUS) 1.1 % dental cream USE AT BEDTIME ketoconazole (NIZORAL) 2 % cream APPLY TOPICALLY TO THE AFFECTED AREA DAILY (Patient not taking: Reported on 06/15/2024) traMADol (ULTRAM) 50 mg tablet metoprolol succinate ER (TOPROL XL) 50 mg 24 hr tablet atorvastatin (LIPITOR) 40 mg tablet Take 1 tablet by mouth every afternoon. aspirin 81 mg chewable tablet CHEW 1 TABLET BY MOUTH EVERY DAY WITH A MEAL ticagrelor (BRILINTA) 90 mg tablet Take by mouth. pregabalin (LYRICA) 50 mg capsule Take 50 mg by mouth three times a day. sertraline (ZOLOFT) 50 mg tablet Take 50 mg by mouth three times a day. (Patient not taking: Reported on 06/15/2024) LYSINE ORAL Take by mouth. fluticasone propionate (FLONASE NASAL) Use in the nose. albuterol (more content not included)... Normal [facility] Basic metabolic 2000 panelon 07-19-2024 Anion gap [Moles/Vol] 3 mmol/L Low 5-16 [facility] Comment on above: Order Comment: Speci men Type: BLOOD SPECIMENOrdering Facility: [facility] Address: [address] [place] [address] Performed By: #### 2 777-1, , ####[facility] LABORATORYCLIA [id number] [place] [address] [place] Calcium [Mass/Vol] 8.7 mg/dL Normal 8.5-10.5 [facility] Comment on above: Order Comment: Speci men Type: BLOOD SPECIMENOrdering Facility: [facility] Address: [address] [place] [address] Performed By: #### 2 777-1, , ####[facility] LABORATORYCLIA [id number] [place] [id number] [place] Chloride [Moles/Vol] 109 mmol/L High 98-107 [facility] Comment on above: Order Comment: Speci men Type: BLOOD SPECIMENOrdering Facility: [facility] Address: [address] [place] [address] Performed By: #### 2 777-1, , ####[facility] LABORATORYCLIA [id number] [place] [id number] [place] CO2 [Moles/Vol] 30 mmol/L Normal 21-32 [facility] Comment on above: Order Comment: Speci men Type: BLOOD SPECIMENOrdering Facility: [facility] Address: [address] [place], [place] [address] Performed By: #### 2 777-1, , ####[facility] LABORATORYCLIA [id number] [place] [id number] [place] Creatinine [Mass/Vol] 0.84 mg/dL Normal 0.51-0.95 [facility] Comment on above: Order Comment: Speci men Type: BLOOD SPECIMENOrdering Facility: [facility] Address: [address] [place] [address] Result Comment: Sarika ents receiving either N-Acetylcysteine (NAC) or Metamizole prior to venipuncture, may have falsely depressed results. Performed By: #### 2 777-1, , ####[facility] LABORATORYCLIA [id number] [address] Creatinine and Glomerular filtration rate.predicted panel (S/P/Bld) 83 mL/min/1.73m??? Normal >=60 [facility] Comment on above: Order Comment: Speci men Type: BLOOD SPECIMENOrdering Facility: [facility] Address: [address] [place], [place] [address] Result Comment: Gina mated Glomerular Filtration Rate (eGFR) is calculated using the 2020 CKD-EPI creatinine equation. This equation utilizes serum creatinine, sex, and age as parameters. The creatinine assay has traceable calibration to isotope dilution-mass spectrometry. Refer to KDIGO guidelines for clinical interpretation. In patients with unstable renal function, e.g. those with acute kidney injury, the eGFR may not accurately reflect actual GFR. Performed By: #### 2 777-1, , ####[facility] LABORATORYCLIA [id number] [place] [id number] [place] Glucose [Mass/Vol] 106 mg/dL High 70-100 [facility] Comment on above: Order Comment: Speci men Type: BLOOD SPECIMENOrdering Facility: [facility] Address: [address] [place] [address] Result Comment: The [place] Diabetes Association (ADA) provides guidance for cutoff values for fasting glucose and random glucose. The ADA defines fasting as no caloric intake for at least 8 hours. Fasting plasma glucose results between 100 to 125 mg/dL indicate increased risk for diabetes (prediabetes). Fasting plasma glucose results greater than or equal to 126 mg/dL meet the criteria for diagnosis of diabetes. In the absence of unequivocal hyperglycemia, results should be confirmed by repeat testing. In a patient with classic symptoms of hyperglycemia or hyperglycemic crisis, random plasma glucose results greater than or equal to 200 mg/dL meet the criteria for diagnosis of diabetes. Reference: Standards of Medical Care in Diabetes 2016, [place] Diabetes Association. Diabetes Care. 2016.39(Suppl 1). Results may be falsely elevated after the administration of Sulfapyridine. Results may be falsely depressed after the administration of Sulfasalazine. Performed By: #### 2 777-1, , ####[facility] LABORATORYCLIA [id number] [place] [id number] [place] Potassium [Moles/Vol] 3.3 mmol/L Low 3.5-5.1 [facility] Comment on above: Order Comment: Speci men Type: BLOOD SPECIMENOrdering Facility: [facility] Address: [address] [place] [address] Performed By: #### 2 777-1, , ####[facility] LABORATORYCLIA [id number] [place] [id number] [place] Sodium [Moles/Vol] 142 mmol/L Normal 136-145 [facility] Comment on above: Order Comment: Speci men Type: BLOOD SPECIMENOrdering Facility: [facility] Address: [address] [place] [id number] Performed By: #### 2 777-1, , 74474-9 ####[facility] LABORATORYCLIA [id number] [place] [id number] [place] Urea nitrogen [Mass/Vol] 9 mg/dL Normal 7-26 [facility] Comment on above: Order Comment: Speci men Type: BLOOD SPECIMENOrdering Facility: [facility] Address: [address] [place] [address] Performed By: #### 2 777-1, , ####[facility] LABORATORYCLIA [id number] [place] [id number] [facility] [place] CBC panel Auto (Bld)on 07-19 Erythrocyte distribution width (RBC) [Ratio] 14.4 % Normal 11.5-15.0 [facility] Comment on above: Order Comment: Speci men Type: BLOOD SPECIMENOrdering Facility: [facility] Address: [address] [place] [address] Performed By: #### 5 8410-2 ####[facility] LABORATORYCLIA [id number] [place] [address] [place] Hematocrit (Bld) [Volume fraction] 21.3 % Low 36.0-46.0 [facility] Comment on above: Order Comment: Speci men Type: BLOOD SPECIMENOrdering Facility: [facility] Address: [address] [place] [address] Performed By: #### 5 8410-2 ####[facility] LABORATORYCLIA [id number] [place] [id number] [place] Hemoglobin (Bld) [Mass/Vol] 7.2 g/dL Low 11.5-15.5 [facility] Comment on above: Order Comment: Speci men Type: BLOOD SPECIMENOrdering Facility: [facility] Address: [address] [place] [address] Performed By: #### 5 8410-2 ####[facility] LABORATORYCLIA [id number] [address] [place] MCH (RBC) [Entitic mass] 29.6 pg Normal 26.0-34.0 [facility] Comment on above: Order Comment: Speci men Type: BLOOD SPECIMENOrdering Facility: [facility] Address: [address] [place] [address] Performed By: #### 5 8410-2 ####[facility] LABORATORYCLIA [id number] [address] [place] MCHC (RBC) [Mass/Vol] 33.8 g/dL Normal 30.5-36.0 [facility] Comment on above: Order Comment: Speci men Type: BLOOD SPECIMENOrdering Facility: [facility] Address: [address] [place] [address] Performed By: #### 5 8410-2 ####[facility] LABORATORYCLIA [id number] [address] MCV (RBC) [Entitic vol] 87.7 fL Normal 80.0-100.0 [facility] Comment on above: Order Comment: Speci men Type: BLOOD SPECIMENOrdering Facility: [facility] Address: [address] [place] [address] Performed By: #### 5 8410-2 ####[facility] LABORATORYCLIA [id number] [address] [place] Nucleated RBC (Bld) [#/Vol] 0.03 10*3/uL High <0.01 [facility] Comment on above: Order Comment: Speci men Type: BLOOD SPECIMENOrdering Facility: [facility] Address: [address] [place], [place] [address] Performed By: #### 5 8410-2 ####[facility] LABORATORYCLIA [id number] [address] [place] Platelet mean volume (Bld) [Entitic vol] 9.4 fL Normal 9.0-12.7 [facility] Comment on above: Order Comment: Speci men Type: BLOOD SPECIMENOrdering Facility: [facility] Address: [address] [place] [address] Performed By: #### 5 8410-2 ####[facility] LABORATORYCLIA [id number] [place] [id number] [place] [facility] Platelets (Bld) [#/Vol] 137 10*3/uL Low 150-400 [facility] Comment on above: Order Comment: Speci men Type: BLOOD SPECIMENOrdering Facility: [facility] Address: [address] [place] [address] Performed By: #### 5 8410-2 ####[facility] LABORATORYCLIA [id number] [place] [address] [place] RBC (Bld) [#/Vol] 2.43 10*6/uL Low 3.90-5.20 [facility] Comment on above: Order Comment: Speci men Type: BLOOD SPECIMENOrdering Facility: [facility] Address: [address] [place] [address] Performed By: #### 5 8410-2 ####[facility] LABORATORYCLIA [id number] [address] [place] WBC (Bld) [#/Vol] 5.32 10*3/uL Normal 3.70-11.00 [facility] Comment on above: Order Comment: Speci men Type: BLOOD SPECIMENOrdering Facility: [facility] Address: [address] [place] [address] Performed By: #### 5 8410-2 ####[facility] LABORATORYCLIA [id number] [place] [id number] [facility] Hgb Bld-ncon 07-19-2024 Hemoglobin (Bld) [Mass/Vol] 8.8 g/dL Low 11.5-15.5 [facility] Comment on above: Order Comment: Speci men Type: BLOOD SPECIMENOrdering Facility: [facility] Address: [address] [place] [address] Performed By: #### 7 18-7 ####[facility] LABORATORYCLIA [id number] [place] [id number] [place] Hemoglobin (Bld) [Mass/Vol] 7.2 g/dL Low 11.5-15.5 [facility] Comment on above: Order Comment: Balbir howell Type: BLOOD SPECIMENOrdering Facility: [facility] Address: [address] [place] [address] Performed By: #### 7 18-7 ####[facility] LABORATORYCLIA [id number] [place] [id number] [place] [facility] [place] Magnesium SerPl-mCncon 07-19 Magnesium [Mass/Vol] 1.6 mg/dL Normal 1.6-2.6 [facility] Comment on above: Order Comment: Balbir howell Type: BLOOD SPECIMENOrdering Facility: [facility] Address: [address] [place] [address] Performed By: #### 2 777-1, 03771-2, 32375-6 ####[facility] LABORATORYCLIA [id number] [address] [place] PT panel Coag (PPP)on 2023 INR Coag (PPP) [Relative time] 1.1 {INR} Normal 0.9-1.3 [facility] Comment on above: Order Comment: Balbir howell Type: BLOOD SPECIMENOrdering Facility: [facility] Address: [address] [place] [address] Result Comment: Aliya min K Antagonist (VKA) Therapeutic Range: INR 2 to 3 (Target INR of 2.5) Note: For patients treated with VKA drugs, such as warfarin, the [employer] 2012 Guideline recommends a therapeutic INR range of 2 to 3 (target INR of 2.5). This recommendation includes high-risk patients with antiphospholipid syndrome with previous arterial or venous thromboembolism, current-generation mechanical or bioprosthetic aortic heart valve replacement. Note: Patients with mechanical aortic valve replacement and additional risk factors for thromboembolic events (atrial fibrillation, previous thromboembolism, LV dysfunction, hypercoagulable conditions) or an older generation mechanical AVR (i.e., ball in-Cage) or any mechanical MVR should have a INR therapeutic range of 2.5 to 3.5 (target INR of 3). Sigifredo GH, et al. Chest 2012, 141:7S-47S Jakub RA, et al. [facility] 2017, 70: 252-289 Performed By: #### 3 4528-0 ####[facility] LABORATORYCLIA [id number] [place] [id number] [place] [facility] PT Coag (PPP) [Time] 11.4 s Normal 9.7-13.0 [facility] Comment on above: Order Comment: Speci men Type: BLOOD SPECIMENOrdering Facility: [facility] Address: [address] [place] [address] Performed By: #### 3 4528-0 ####[facility] LABORATORYCLIA [id number] [place] [id number] [facility] Phosphate SerPl-mCncon 07-19 Phosphate [Mass/Vol] 3.6 mg/dL Normal 2.5-4.9 [facility] Comment on above: Order Comment: Speci men Type: BLOOD SPECIMENOrdering Facility: [facility] Address: [address] [place] [address] Result Comment: Elev ated m-protein (paraprotein) levels in the serum may be exhibited in patients with monoclonal gammopathies, causing falsely elevated inorganic phosphorus results. Performed By: #### 2 777-1, 52042-8, 30375-7 ####[facility] LABORATORYCLIA [id number] [place] [id number] [place] [facility] Upper GI endoscopyon 024 Upper GI endoscopy [facility] Gastrointestinal Endoscopy Patient Name: Holden Childers Procedure Date: 07/19/2024 7:20 AM Date of : 1970 Admit Type: Inpatient Age: 54 Room: [place] [address] Gender: Female Note Status: Finalized Attending MD: Vlad Cancino MD, [id number] Procedure: Upper GI endoscopy Indications: Acute post hemorrhagic anemia, Hematemesis, Melena Providers: Vlad Cancino MD, Kristen Hernández, RICHA, Chitra Huogh RN Referring Physician: Yasmine Cunningham (Referring MD) Medicines: Monitored Anesthesia Care Complications: No immediate complications. Procedure: Pre-Anesthesia Assessment: - Prior to the procedure, a History and Physical was performed, and patient medications and allergies were reviewed. The patient's tolerance of previous anesthesia was also reviewed. The risks and benefits of the procedure and the sedation options and risks were discussed with the patient. All questions were answered, and informed consent was obtained. Prior Anticoagulants: The patient has taken Brilinta (ticagrelor), last dose was 3 days prior to procedure. ASA Grade Assessment: III - A patient with severe systemic disease. After reviewing the risks and benefits, the patient was deemed in satisfactory condition to undergo the procedure. This is an imaging template note. Please see physician's operative note for detailed procedure results. The upper GI endoscopy was accomplished without difficulty. The patient tolerated the procedure well. Total Procedure Duration: 0 hours 3 minutes 12 seconds Findings: A small hiatal hernia was present. The exam of the esophagus was otherwise normal. Multiple non-bleeding superficial gastric ulcers with a clean ulcer base (José Miguel Class III) were found in the stomach. The examined duodenum was normal. Impression: - Small hiatal hernia. - Non-bleeding gastric ulcers with a clean ulcer base (José Miguel Class III). - Normal examined duodenum. - No specimens collected. Recommendation: - [facility]. - Resume previous diet. - No ibuprofen, naproxen, or other non-steroidal anti-inflammatory drugs. - Use Protonix (pantoprazole) 40 mg PO BID before meals for 2 months. - Repeat upper endoscopy in 2 months to evaluate the response to therapy. - Return to GI clinic at appointment to be scheduled. Procedure Code(s): --- Professional --- 84035, Esophagogastroduoden oscopy, flexible, transoral; diagnostic, including collection of specimen(s) by brushing or washing, when performed (separate procedure) Diagnosis Code(s): --- Professional --- K44.9, Diaphragmatic hernia without obstruction or gangrene K25.9, Gastric ulcer, unspecified as acute or chronic, without hemorrhage or perforation D62, Acute posthemorrhagic anemia K92.0, Hematemesis K92.1, Melena (includes Hematochezia) CPT copyright 2020 [employer]. All rights reserved. The codes documented in this report are preliminary and upon golf player assistant review may be revised to meet current compliance requirements. Attending Participation: I personally performed the entire procedure. Scope In: 7:43:08 AM Scope Out: 7:46:20 AM MD Vlad Jama MD 07/19/2024 4:23:31 PM This report has been signed electronically by Vlad Cancino MD Number of Addenda: 0 Note Initiated On: 07/19/2024 7:20 AM Estimated Blood Loss: Estimated blood loss was minimal. Normal [facility] CBC panel Auto (Bld)on 07-18 Erythrocyte distribution width (RBC) [Ratio] 15.0 % Normal 11.5-15.0 [facility] Comment on above: Order Comment: Speci men Type: BLOOD SPECIMENOrdering Facility: [facility] Address: [address] [place] [address] Performed By: #### 5 8410-2 ####[facility] LABORATORYCLIA [id number] [place] [address] [place] [facility] Hematocrit (Bld) [Volume fraction] 21.7 % Low 36.0-46.0 [facility] Comment on above: Order Comment: Speci men Type: BLOOD SPECIMENOrdering Facility: [facility] Address: [address] [place] [address] Performed By: #### 5 8410-2 ####[facility] LABORATORYCLIA [id number] [place] [address] [facility] Hemoglobin (Bld) [Mass/Vol] 7.5 g/dL Low 11.5-15.5 [facility] Comment on above: Order Comment: Speci men Type: BLOOD SPECIMENOrdering Facility: [facility] Address: [address] [place] [address] Performed By: #### 5 8410-2 ####[facility] LABORATORYCLIA [id number] [place] [address] [facility] MCH (RBC) [Entitic mass] 30.2 pg Normal 26.0-34.0 [facility] Comment on above: Order Comment: Speci men Type: BLOOD SPECIMENOrdering Facility: [facility] Address: [address] [place] [address] Performed By: #### 5 8410-2 ####[facility] LABORATORYCLIA [id number] [place] [address] [facility] MCHC (RBC) [Mass/Vol] 34.6 g/dL Normal 30.5-36.0 [facility] Comment on above: Order Comment: Speci men Type: BLOOD SPECIMENOrdering Facility: [facility] Address: [address] [place] [address] Performed By: #### 5 8410-2 ####[facility] LABORATORYCLIA [id number] [address] [place] MCV (RBC) [Entitic vol] 87.5 fL Normal 80.0-100.0 [facility] Comment on above: Order Comment: Speci men Type: BLOOD SPECIMENOrdering Facility: [facility] Address: [address] [place] [address] Performed By: #### 5 8410-2 ####[facility] LABORATORYCLIA [id number] [address] [place] Nucleated RBC (Bld) [#/Vol] 0.03 10*3/uL High <0.01 [facility] Comment on above: Order Comment: Speci men Type: BLOOD SPECIMENOrdering Facility: [facility] Address: [address] [place] [address] Performed By: #### 5 8410-2 ####[facility] LABORATORYCLIA [id number] [address] [place] Platelet mean volume (Bld) [Entitic vol] 9.5 fL Normal 9.0-12.7 [facility] Comment on above: Order Comment: Speci men Type: BLOOD SPECIMENOrdering Facility: [facility] Address: [address] [place] [address] Performed By: #### 5 8410-2 ####[facility] LABORATORYCLIA [id number] [place] [id number] [facility] Platelets (Bld) [#/Vol] 148 10*3/uL Low 150-400 [facility] Comment on above: Order Comment: Speci men Type: BLOOD SPECIMENOrdering Facility: [facility] Address: [address] [place] [address] Performed By: #### 5 8410-2 ####[facility] LABORATORYCLIA [id number] [place] [id number] [place] RBC (Bld) [#/Vol] 2.48 10*6/uL Low 3.90-5.20 [facility] Comment on above: Order Comment: Speci men Type: BLOOD SPECIMENOrdering Facility: [facility] Address: [address] [place] [address] Performed By: #### 5 8410-2 ####[facility] LABORATORYCLIA [id number] [place] [address] [place] [facility] [place] WBC (Bld) [#/Vol] 6.83 10*3/uL Normal 3.70-11.00 [facility] Comment on above: Order Comment: Speci men Type: BLOOD SPECIMENOrdering Facility: [facility] Address: [address] [place] [address] Performed By: #### 5 8410-2 ####[facility] LABORATORYCLIA [id number] [place] [id number] [facility] CONSULTon 07-18-2024 CONSULT HNO ID: [id number] Author: ROBERTO GRANADOS, PhD Service: Psychology Author Type: Psychologist Type: Consults Filed: 07/18/2024 12:05 Note Text: PSYCHOLOGY INITIAL CONSULT NOTE SERVICE DATE: 07/18/2024 REASON FOR CONSULT: Suicide attempt. REQUESTING PHYSICIAN: Yang Monaco Ms. Childers is a 54 year old female who presents for suicide attempt. The patient indicated that she overdosed on 3 of her medications and her intention was to end her life. She said she had been feeling depressed. She felt sad with low energy and low motivation. She felt that life had no meaning. She also felt that life should not be this way. She also said that she was tired of coping. At this time she still feels life is not worth living this way. The patient reported feeling very anxious. Her thoughts had been racing and she had been worried. When she is anxious she shakes, she sweats, and she is achy all over. PAST MEDICAL HISTORY Diagnosis Date Abnormal Pap smear 09/2008 LGSIL and Positive HPV Abnormal Pap smear 04/2009 HGSIL Encounter for insertion or removal of intrauterine contraceptive device 12/13/2008 Mirena Endometriosis Fibromyalgia 08/14/2012 Hypertension Palpitations S/P SHREE (total abdominal hysterectomy) 05/15/2010 PAST SURGICAL HISTORY Procedure Laterality Date APPENDECTOMY CONIZATION CERVIX W/WO DANDC RPR ELTRD EXC 06/21/2009 (LEEP) INSERT INTRAUTERINE DEVICE 12/13/2008 Mirena IUD REMOVAL 03/22/2010 LAPS ABD PRTMANDOMENTUM DX W/WO SPEC BR/WA SPX Laparoscopy TONSILLECTOMY PRIMARY/SECONDARY Tonsillectomy TOTAL ABDOMINAL HYSTERECT W/WO RMVL TUBE OVARY 05/15/2010 Dr. Dodd; Dysplasia, Metrorrhagia, Dysmenorrhea TRANSV CAROTID STENT PLACEMT 10/25/2023 [place] VAGINOSCOPY 02/01/2010 FAMILY HISTORY Problem Relation Age of Onset Hypertension Mother Coronary Artery Disease Maternal Grandfather Coronary Artery Disease Paternal Grandfather Social History Tobacco Use Smoking status: Former Current packs/day: 0.00 Average packs/day: 0.8 packs/day for 27.0 years (20.3 ttl pk-yrs) Types: Cigarettes Start date: 10/24/1996 Quit date: 10/25/2023 Years since quittin.7 Smokeless tobacco: Never Tobacco comments: Started smoking age 26 Vaping Use Vaping status: Some Days Substances: Nicotine, Flavoring Substance Use Topics Alcohol use: No Drug use: No cholecalciferol (VITAMIN D-3) 5,000 unit tab, Take 5,000 Units by mouth once daily., Disp: , Rfl: DULoxetine (CYMBALTA) 30 mg capsule, Take 1 capsule by mouth once daily., Disp: 90 capsule, Rfl: 0 acyclovir (ZOVIRAX) 400 mg tablet, TAKE 1 TABLET BY MOUTH TWICE A DAY NEEDED FOR COLD SORES, Disp: , Rfl: azelastine 0.1% nasal spray, Use 1 [place] in each nostril two times a day., Disp: , Rfl: cyanocobalamin (VITAMIN B-12) 500 mcg tablet, Take by mouth., Disp: , Rfl: VOLTAREN ARTHRITIS PAIN 1 % topical gel, , Disp: , Rfl: sodium fluoride (PREVIDENT 5000 PLUS) 1.1 % dental cream, USE AT BEDTIME, Disp: , Rfl: ketoconazole (NIZORAL) 2 % cream, APPLY TOPICALLY TO THE AFFECTED AREA DAILY (Patient not taking: Reported on 06/15/2024), Disp: , Rfl: traMADol (ULTRAM) 50 mg tablet, , Disp: , Rfl: metoprolol succinate ER (TOPROL XL) 50 mg 24 hr tablet, , Disp: , Rfl: atorvastatin (LIPITOR) 40 mg tablet, Take 1 tablet by mouth every afternoon., Disp: , Rfl: aspirin 81 mg chewable tablet, CHEW 1 TABLET BY MOUTH EVERY DAY WITH A MEAL, Disp: , Rfl: ticagrelor (BRILINTA) 90 mg tablet, Take by mouth., Disp: , Rfl: pregabalin (LYRICA) 50 mg capsule, Take 50 mg by mouth three times a day., Disp: , Rfl: sertraline (ZOLOFT) 50 mg tablet, Take 50 mg by mouth three times a day. (Patient not taking: Reported on 06/15/2024), Disp: , Rfl: LYSINE ORAL, Take by mouth., Disp: , Rfl: fluticasone propionate (FLONASE NASAL), Use in the nose., Disp: , Rfl: albuterol sulfate 90 mcg/actuation breath activated powder inhaler, Inhale as instructed., Disp: , Rfl: cyclobenzaprine (FLEXERIL) 5 mg tablet, Take 1 tablet by mouth daily at bedtime., Disp: 90 tablet, Rfl: 0 magnesium oxide (MAG-OX) 400 mg (241.3 mg magnesium) tablet, Take 1 tablet by mouth twice daily., Disp: , Rfl: montelukast (SINGULAIR) 10 mg tablet, Take 1 tablet by mouth daily at bedtime., Disp: 90 tablet, Rfl: 1 Current Facility-Administere d Medications Medication Dose Route Frequency NaCl 0.9% iv flush bag 20 mL INTRAVENOUS PRN levalbuterol 0.63 mg nebulizer solution (XOPENEX) 0.63 mg INHALATION q 6 H PRN octreotide 500 mcg in NaCl 0.9% 100 mL (SandoSTATIN) 50 mcg/hr INTRAVENOUS CONTINUOUS ondansetron 4 mg tab(s) (ZOFRAN) 4 mg ORAL q 6 H PRN Or ondansetron (PF) 4 mg injection (ZOFRAN) 4 mg INTRAVENOUS q 6 H PRN scopolamine (delivers 1 mg over 3 days) 1 Patch (TRANSDERM-SCOP) 1 Patch TRANSDERMAL q 72 HR And [START ON 07/19/2024] scopolamine - REMOVE PATCH OTHER q 72 HR And scopolamine - VERIFY patch OTHER q 8 H (more content not included)... [facility] CONSULT PROGon 07-18-2024 CONSULT PROG HNO ID: [id number] Author: VLAD CANCINO MD Service: Gastroenterology Author Type: Physician Type: Consult Progress Note Filed: 07/18/2024 10:24 Note Text: GI CONSULT PROGRESS NOTE SERVICE DATE: 07/18/2024 SERVICE TIME: 10:09 AM CONSULTING SERVICE: Gastroenterology No new complaints. No further episodes of vomiting, no rectal bleeding. Hemoglobin is still on the low side, but stable. Not on vasopressors. Denied abdominal pain. No fever or chills. Current Facility-Administere d Medications Medication Dose Route Frequency NaCl 0.9% iv flush bag 20 mL INTRAVENOUS PRN levalbuterol 0.63 mg nebulizer solution (XOPENEX) 0.63 mg INHALATION q 6 H PRN octreotide 500 mcg in NaCl 0.9% 100 mL (SandoSTATIN) 50 mcg/hr INTRAVENOUS CONTINUOUS ondansetron 4 mg tab(s) (ZOFRAN) 4 mg ORAL q 6 H PRN Or ondansetron (PF) 4 mg injection (ZOFRAN) 4 mg INTRAVENOUS q 6 H PRN scopolamine (delivers 1 mg over 3 days) 1 Patch (TRANSDERM-SCOP) 1 Patch TRANSDERMAL q 72 HR And [START ON 07/19/2024] scopolamine - REMOVE PATCH OTHER q 72 HR And scopolamine - VERIFY patch OTHER q 8 H cefTRIAXone 2 g in D5W 100 mL Vial-Bag (ROCEPHIN) 2 g INTRAVENOUS q 24 HR pantoprazole 40 mg injection (PROTONIX) 40 mg INTRAVENOUS BID AC (0600/1600) diphenhydrAMINE-maal ox-lidocaine 10 mL oral liquid (BMX 1:1:1) 10 mL ORAL q 4 H PRN hydrOXYzine pamoate 50 mg cap(s) (VISTARIL) 50 mg ORAL q 6 H PRN Objective PHYSICAL EXAM: Physical Exam Performed: GENERAL: Alert, awake, pale, no acute distress EYES: PERRLA, EOMI, no scleral icterus LUNGS: Normal, unlabored breathing CARDIAC: Regular rate and rhythm ABDOMEN: Abdomen soft, non-tender, BS normal, No masses or organomegaly EXTREMITIES: No edema, no cyanosis NEURO: AOx3, no focal motor deficit BP 138/65 Pulse 88 Temp (Src) 99 (Oral) Resp 19 Ht 5' 5 (1.65m) Wt 141 lb 1.5 oz (64.0kg) SpO2 96% LMP 04/16/2010 BMI 23.48 kg/(m2). O2 Therapy: Room Air Assessment: - Acute upper GI bleeding. Relatively improving, no new episodes. DDx ulcers, erosions, mass etc. No history of liver cirrhosis to suspect varices, but cannot be ruled out completely. - Acute blood loss anemia, hemoglobin better after transfusion - History of CAD on DAPT; aspirin and Brilinta. Last doses were on 07/16 - History of psych disorders and suicidal attempt few days ago. Psych and suicide measures as per ICU protocol - History of marijuana use, UDS on 07/06/2024, and yesterday 07/17 where positive for cannabinoids - Thrombocytopenia, stable. - Slightly elevated total bilirubin and AST, may indicate underlying liver disease. Both improving. Ultrasound liver results are pending. Recommendations: - Continue to monitor hemoglobin, transfuse to keep > 7 (or > 8 if desired given her history of CAD) - Continue pantoprazole 40 mg IV twice daily - Octreotide 50 mcg/hour since varices cannot be ruled out completely - N.p.o. after midnight - Plan on EGD tomorrow. SIGNATURE: Vlad Cancino MD PATIENT NAME: Holden Childers DATE: July 17, 2024 TIME: 9:22 AM [facility] Comprehensive metabolic 2000 panelon 07-18-2024 Albumin [Mass/Vol] 2.5 g/dL Low 3.2-5.0 [facility] Comment on above: Order Comment: Speci men Type: BLOOD SPECIMENOrdering Facility: [facility] Address: [address] [place] [address] Performed By: #### 1 9123-9, 68673-9 ####[facility] LABORATORYCLIA [id number] [place] [id number] [place] [facility] ALP [Catalytic activity/Vol] 68 U/L Normal 45-117 [facility] Comment on above: Order Comment: Speci men Type: BLOOD SPECIMENOrdering Facility: [facility] Address: [address] [place] [address] Performed By: #### 1 9123-9, 41738-4 ####[facility] LABORATORYCLIA [id number] [address] [place] [facility] ALT [Catalytic activity/Vol] 36 U/L Normal 13-61 [facility] Comment on above: Order Comment: Speci men Type: BLOOD SPECIMENOrdering Facility: [facility] Address: [address] [place] [address] Result Comment: Resu lts may be falsely depressed after the administration of Sulfasalazine and/or Sulfapyridine. Performed By: #### 1 9123-9, 23699-4 ####[facility] LABORATORYCLIA [id number] [place] [address] [place] Anion gap [Moles/Vol] 7 mmol/L Normal 5-16 [facility] Comment on above: Order Comment: Speci men Type: BLOOD SPECIMENOrdering Facility: [facility] Address: [address] [place] [address] Performed By: #### 1 9123-9, 41734-7 ####[facility] LABORATORYCLIA [id number] [place] [id number] [place] AST [Catalytic activity/Vol] 41 U/L High 8-34 [facility] Comment on above: Order Comment: Speci men Type: BLOOD SPECIMENOrdering Facility: [facility] Address: [address] [place] [address] Result Comment: Resu lts may be falsely depressed after the administration of Sulfasalazine and/or Sulfapyridine. Performed By: #### 1 9123-9, 27398-5 ####[facility] LABORATORYCLIA [id number] [place] [address] [place] Bilirubin [Mass/Vol] 0.5 mg/dL Normal 0.2-1.0 [facility] Comment on above: Order Comment: Speci men Type: BLOOD SPECIMENOrdering Facility: [facility] Address: [address] [place] [address] Performed By: #### 1 9123-9, 92413-2 ####[facility] LABORATORYCLIA [id number] [place] [address] [place] Calcium [Mass/Vol] 8.6 mg/dL Normal 8.5-10.5 [facility] Comment on above: Order Comment: Speci men Type: BLOOD SPECIMENOrdering Facility: [facility] Address: [address] [place] [address] Performed By: #### 1 9123-9, ####[facility] LABORATORYCLIA [id number] [place] [address] [place] Chloride [Moles/Vol] 108 mmol/L High 98-107 [facility] Comment on above: Order Comment: Speci men Type: BLOOD SPECIMENOrdering Facility: [facility] Address: [address] [place] [address] Performed By: #### 1 9123-9, 60834-7 ####[facility] LABORATORYCLIA [id number] [place] [id number] [place] CO2 [Moles/Vol] 27 mmol/L Normal 21-32 [facility] Comment on above: Order Comment: Speci men Type: BLOOD SPECIMENOrdering Facility: [facility] Address: [address] [place] [address] Performed By: #### 1 9123-9, 50774-1 ####[facility] LABORATORYCLIA [id number] [place] [id number] [place] Creatinine [Mass/Vol] 0.91 mg/dL Normal 0.51-0.95 [facility] Comment on above: Order Comment: Balbir howell Type: BLOOD SPECIMENOrdering Facility: [facility] Address: [address] [place] [address] Result Comment: Sarika ents receiving either N-Acetylcysteine (NAC) or Metamizole prior to venipuncture, may have falsely depressed results. Performed By: #### 1 9123-9, 73006-0 ####[facility] LABORATORYCLIA [id number] [address] Creatinine and Glomerular filtration rate.predicted panel (S/P/Bld) 75 mL/min/1.73m??? Normal >=60 [facility] Comment on above: Order Comment: Balbir howell Type: BLOOD SPECIMENOrdering Facility: [facility] Address: [address] [place] [address] Result Comment: Gina mated Glomerular Filtration Rate (eGFR) is calculated using the 2020 CKD-EPI creatinine equation. This equation utilizes serum creatinine, sex, and age as parameters. The creatinine assay has traceable calibration to isotope dilution-mass spectrometry. Refer to KDIGO guidelines for clinical interpretation. In patients with unstable renal function, e.g. those with acute kidney injury, the eGFR may not accurately reflect actual GFR. Performed By: #### 1 9123-9, 24159-6 ####[facility] LABORATORYCLIA [id number] [place] [id number] [place] Glucose [Mass/Vol] 92 mg/dL Normal 70-100 [facility] Comment on above: Order Comment: Balbir howell Type: BLOOD SPECIMENOrdering Facility: [facility] Address: [address] [place] [address] Result Comment: The [place] [employer] (ADA) provides guidance for cutoff values for fasting glucose and random glucose. The ADA defines fasting as no caloric intake for at least 8 hours. Fasting plasma glucose results between 100 to 125 mg/dL indicate increased risk for diabetes (prediabetes). Fasting plasma glucose results greater than or equal to 126 mg/dL meet the criteria for diagnosis of diabetes. In the absence of unequivocal hyperglycemia, results should be confirmed by repeat testing. In a patient with classic symptoms of hyperglycemia or hyperglycemic crisis, random plasma glucose results greater than or equal to 200 mg/dL meet the criteria for diagnosis of diabetes. Reference: Standards of Medical Care in Diabetes 2016, [place] [employer]. Diabetes Care. 2016.39(Suppl 1). Results may be falsely elevated after the administration of Sulfapyridine. Results may be falsely depressed after the administration of Sulfasalazine. Performed By: #### 1 9123-9, 49831-9 ####[facility] LABORATORYCLIA [id number] [place] [address] [place] Potassium [Moles/Vol] 3.7 mmol/L Normal 3.5-5.1 [facility] Comment on above: Order Comment: Yasminei dante Type: BLOOD SPECIMENOrdering Facility: [facility] Address: [address] [place] [address] Performed By: #### 1 9123-9, ####[facility] LABORATORYCLIA [id number] [place] [address] [place] Protein [Mass/Vol] 5.3 g/dL Low 6.0-8.5 [facility] Comment on above: Order Comment: Balbir howell Type: BLOOD SPECIMENOrdering Facility: [facility] Address: [address] [place] [address] Performed By: #### 1 91239, ####[facility] LABORATORYCLIA [id number] [place] [address] [place] Sodium [Moles/Vol] 142 mmol/L Normal 136-145 [facility] Comment on above: Order Comment: Yasminei dante Type: BLOOD SPECIMENOrdering Facility: [facility] Address: [address] [place] [address] Performed By: #### 1 9123-9, 77215-2 ####[facility] LABORATORYCLIA [id number] [place] [address] [place] Urea nitrogen [Mass/Vol] 17 mg/dL Normal 7-26 [facility] Comment on above: Order Comment: Speci men Type: BLOOD SPECIMENOrdering Facility: [facility] Address: [address] [facility] [place] [address] Performed By: #### 1 9123-9, 36705-0 ####[facility] LABORATORYCLIA [id number] [place] [address] [place] Hemoccult Stl Qlon 4 Hemoglobin.gastrointest inal Ql (Stl) Positive Abnormal [facility] Comment on above: Performed By: #### 2 335-8 ####[facility]ORATORYCLIA [id number] [place] [address] [place] Hgb Bld-mCncon 07-18-2024 Hemoglobin (Bld) [Mass/Vol] 7.3 g/dL Low 11.5-15.5 [facility] Comment on above: Order Comment: Speci men Type: BLOOD SPECIMENOrdering Facility: [facility] Address: [address] [place] [address] Performed By: #### 7 18-7 ####[facility] LABORATORYCLIA [id number] [place] [address] [place] Hemoglobin (Bld) [Mass/Vol] 7.2 g/dL Low 11.5-15.5 [facility] Comment on above: Order Comment: Speci men Type: BLOOD SPECIMENOrdering Facility: [facility] Address: [address] [place] [address] Performed By: #### 7 18-7 ####[facility]ORATORYCLIA [id number] [place] [address] [place] Magnesium SerPl-mCncon 07-18 Magnesium [Mass/Vol] 1.6 mg/dL Normal 1.6-2.6 [facility] Comment on above: Order Comment: Speci men Type: BLOOD SPECIMENOrdering Facility: [facility] Address: [address] [place] [address] Performed By: #### 1 9123-9, 15633-9 ####[facility] LABORATORYCLIA [id number] [place] [id number] [facility] [place] CBC panel Auto (Bld)on 07-17 Erythrocyte distribution width (RBC) [Ratio] 14.5 % Normal 11.5-15.0 [facility] Comment on above: Order Comment: Speci men Type: BLOOD SPECIMENOrdering Facility: [facility] Address: [address] [place] [address] Performed By: #### 5 8410-2 ####[facility] LABORATORYCLIA [id number] [address] [place] Hematocrit (Bld) [Volume fraction] 21.2 % Low 36.0-46.0 [facility] Comment on above: Order Comment: Speci men Type: BLOOD SPECIMENOrdering Facility: [facility] Address: [address] [place] [address] Performed By: #### 5 8410-2 ####[facility] LABORATORYCLIA [id number] [address] [place] Hemoglobin (Bld) [Mass/Vol] 7.3 g/dL Low 11.5-15.5 [facility] Comment on above: Order Comment: Speci men Type: BLOOD SPECIMENOrdering Facility: [facility] Address: [address] [place] [address] Performed By: #### 5 8410-2 ####[facility] LABORATORYCLIA [id number] [address] [place] MCH (RBC) [Entitic mass] 29.8 pg Normal 26.0-34.0 [facility] Comment on above: Order Comment: Speci men Type: BLOOD SPECIMENOrdering Facility: [facility] Address: [address] [place] [address] Performed By: #### 5 8410-2 ####[facility] LABORATORYCLIA [id number] [place] [id number] [place] MCHC (RBC) [Mass/Vol] 34.4 g/dL Normal 30.5-36.0 [facility] Comment on above: Order Comment: Speci men Type: BLOOD SPECIMENOrdering Facility: [facility] Address: [address] [place] [address] Performed By: #### 5 8410-2 ####[facility]ORATORYCLIA [id number] [place] [id number] [place] MCV (RBC) [Entitic vol] 86.5 fL Normal 80.0-100.0 [facility] Comment on above: Order Comment: Speci men Type: BLOOD SPECIMENOrdering Facility: [facility] Address: [address] [place] [address] Performed By: #### 5 8410-2 ####[facility]ORATORYCLIA [id number] [address] [place] Nucleated RBC (Bld) [#/Vol] 10*3/uL Normal <0.01 [facility] Comment on above: Order Comment: Speci men Type: BLOOD SPECIMENOrdering Facility: [facility] Address: [address] [place] [address] Performed By: #### 5 8410-2 ####[facility] LABORATORYCLIA [id number] [place] [address] [place] Platelet mean volume (Bld) [Entitic vol] 9.6 fL Normal 9.0-12.7 [facility] Comment on above: Order Comment: Speci men Type: BLOOD SPECIMENOrdering Facility: [facility] Address: [address] [place] [address] Performed By: #### 5 8410-2 ####[facility] LABORATORYCLIA [id number] [place] [address] [place] Platelets (Bld) [#/Vol] 143 10*3/uL Low 150-400 [facility] Comment on above: Order Comment: Speci men Type: BLOOD SPECIMENOrdering Facility: [facility] Address: [address] [place] [address] Performed By: #### 5 8410-2 ####[facility] LABORATORYCLIA [id number] [address] OF [facility] RBC (Bld) [#/Vol] 2.45 10*6/uL Low 3.90-5.20 [facility] Comment on above: Order Comment: Speci men Type: BLOOD SPECIMENOrdering Facility: [facility] Address: [address] [place] [address] Performed By: #### 5 8410-2 ####[facility]ORATORYCLIA [id number] [address] WBC (Bld) [#/Vol] 7.69 10*3/uL Normal 3.70-11.00 [facility] Comment on above: Order Comment: Speci men Type: BLOOD SPECIMENOrdering Facility: [facility] Address: [address] [place] [address] Performed By: #### 5 8410-2 ####[facility]ORATORYCLIA [id number] [place] [id number] [facility] CONSULT PROGon 07-17-2024 CONSULT PROG HNO ID: [id number] Author: VLAD CANCINO MD Service: Gastroenterology Author Type: Physician Type: Consult Progress Note Filed: 07/17/2024 09:29 Note Text: GI CONSULT PROGRESS NOTE SERVICE DATE: 07/17/2024 SERVICE TIME: 9:22 AM CONSULTING SERVICE: Gastroenterology Overall feels better today, no further episodes of vomiting, no rectal bleeding. Hemoglobin is better after transfusion. Not on vasopressors. Denied abdominal pain. No fever or chills. Current Facility-Administere d Medications Medication Dose Route Frequency iv contrast (radiology procedure) INTRAVENOUS DIRECTED PRN NaCl 0.9% iv flush bag 20 mL INTRAVENOUS PRN levalbuterol 0.63 mg nebulizer solution (XOPENEX) 0.63 mg INHALATION q 6 H PRN octreotide 500 mcg in NaCl 0.9% 100 mL (SandoSTATIN) 50 mcg/hr INTRAVENOUS CONTINUOUS lactated ringers iv infusion 75 mL/hr INTRAVENOUS CONTINUOUS ondansetron 4 mg tab(s) (ZOFRAN) 4 mg ORAL q 6 H PRN Or ondansetron (PF) 4 mg injection (ZOFRAN) 4 mg INTRAVENOUS q 6 H PRN scopolamine (delivers 1 mg over 3 days) 1 Patch (TRANSDERM-SCOP) 1 Patch TRANSDERMAL q 72 HR And [START ON 07/19/2024] scopolamine - REMOVE PATCH OTHER q 72 HR And scopolamine - VERIFY patch OTHER q 8 H magnesium sulfate iv piggyback in sterile water 2 g 50 mL 2 g INTRAVENOUS ONCE cefTRIAXone 2 g in D5W 100 mL Vial-Bag (ROCEPHIN) 2 g INTRAVENOUS q 24 H pantoprazole 40 mg injection (PROTONIX) 40 mg INTRAVENOUS BID AC (0600/1600) Objective PHYSICAL EXAM: Physical Exam Performed: GENERAL: Alert, awake, ill-appearing, but no acute distress EYES: PERRLA, EOMI, no scleral icterus LUNGS: Normal, unlabored breathing CARDIAC: Regular rate and rhythm ABDOMEN: Abdomen soft, non-tender, BS normal, No masses or organomegaly EXTREMITIES: No edema, no cyanosis NEURO: AOx3, no focal motor deficit BP 103/58 Pulse 93 Temp (Src) 98.4 (Oral) Resp 24 Ht 5' 5 (1.65m) Wt 130 lb 4.7 oz (59.1kg) SpO2 95% LMP 04/16/2010 BMI 21.68 kg/(m2). O2 Therapy: Room Air Assessment: Acute upper GI bleeding. Etiology is not clear. DDx ulcers, erosions, mass etc. No history of liver cirrhosis to suspect varices, but cannot be ruled out completely. Acute blood loss anemia, hemoglobin better after transfusion Lactic acidosis, possibly due to hypovolemia from GI blood loss. Improving History of CAD on DAPT; aspirin and Brilinta. Last doses were yesterday History of psych disorders and suicidal attempt few days ago. Psych and suicide measures as per ICU protocol History of marijuana use, UDS on 07/06/2024 positive for cannabinoids Thrombocytopenia, slightly elevated total bilirubin and AST, may indicate underlying liver disease. Recommendations: Continue to monitor hemoglobin, transfuse to keep > 7 (or > 8 if desired given her history of CAD) Continue pantoprazole infusion 8 mg/hour Octreotide 50 mcg/hour since varices cannot be ruled out completely Keep n.p.o. for now Close observation Supportive measures with IVF and antiemetics Plan on EGD on Friday; ideally 2-3 days, from last dose of Brilinta. Ultrasound liver when clinically stable to check for liver disease/cirrhosis. SIGNATURE: Vlad Cancino MD PATIENT NAME: Holden Childers DATE: July 17, 2024 TIME: 9:22 AM Normal [facility] Calcium.ionized [Moles/Vol]o n 07-17-2024 Calcium.ionized (Bld) [Mass/Vol] 1.13 mmol/L Normal 1.08-1.30 [facility] Comment on above: Order Comment: Speci men Type: BLOOD SPECIMENOrdering Facility: [facility] Address: [address] [place] [address] Performed By: #### 1 995-0 ####[facility]ORATORYCLIA [id number] [address] STATES OF [facility] Calcium.ionized adjusted to pH 7.4 (Bld) [Moles/Vol] 1.12 mmol/L Normal 1.08-1.30 [facility] Comment on above: Order Comment: Speci men Type: BLOOD SPECIMENOrdering Facility: [facility] Address: [address] [place] [address] Performed By: #### 1 995-0 ####[facility]ORATORYCLIA [id number] [place] [id number] [place] Comprehensive metabolic 2000 panelon 07-17-2024 Albumin [Mass/Vol] 2.3 g/dL Low 3.2-5.0 [facility] Comment on above: Order Comment: Speci men Type: BLOOD SPECIMENOrdering Facility: [facility] Address: [address] [place] [address] Performed By: #### 2 777-1, 02099-6, 71798-2 ####[facility]ORATORYCLIA [id number] [address] [place] ALP [Catalytic activity/Vol] 63 U/L Normal 45-117 [facility] Comment on above: Order Comment: Speci men Type: BLOOD SPECIMENOrdering Facility: [facility] Address: [address] [place] [address] Performed By: #### 2 777-1, , ####[facility]ORATORYCLIA [id number] [place] [id number] [place] ALT [Catalytic activity/Vol] 32 U/L Normal 13-61 [facility] Comment on above: Order Comment: Speci men Type: BLOOD SPECIMENOrdering Facility: [facility] Address: [address] [place] [address] Result Comment: Resu lts may be falsely depressed after the administration of Sulfasalazine and/or Sulfapyridine. Performed By: #### 2 777-1, , ####[facility]ORATORYCLIA [id number] [place] [id number] [place] Anion gap [Moles/Vol] 9 mmol/L Normal 5-16 [facility] Comment on above: Order Comment: Speci men Type: BLOOD SPECIMENOrdering Facility: [facility] Address: [address] [place] [address] Performed By: #### 2 777-1, , ####[facility]ORATORYCLIA [id number] [place] [id number] [place] AST [Catalytic activity/Vol] 42 U/L High 8-34 [facility] Comment on above: Order Comment: Speci men Type: BLOOD SPECIMENOrdering Facility: [facility] Address: [address] [place] [address] Result Comment: Resu lts may be falsely depressed after the administration of Sulfasalazine and/or Sulfapyridine. Performed By: #### 2 777-1, , ####[facility]ORATORYCLIA [id number] [place] [id number] [place] Bilirubin [Mass/Vol] 1.4 mg/dL High 0.2-1.0 [facility] Comment on above: Order Comment: Speci men Type: BLOOD SPECIMENOrdering Facility: [facility] Address: [address] [place], [place] [address] Performed By: #### 2 777-1, , ####[facility]ORATORYCLIA [id number] [place] [id number] [place] Calcium [Mass/Vol] 8.4 mg/dL Low 8.5-10.5 [facility] Comment on above: Order Comment: Speci men Type: BLOOD SPECIMENOrdering Facility: [facility] Address: [address] [place] [address] Performed By: #### 2 777-1, , ####[facility]ORATORYCLIA [id number] [place] [id number] [place] Chloride [Moles/Vol] 110 mmol/L High 98-107 [facility] Comment on above: Order Comment: Speci men Type: BLOOD SPECIMENOrdering Facility: [facility] Address: [address] [place] [address] Performed By: #### 2 777-1, , ####[facility]ORATORYCLIA [id number] [place] [id number] [place] CO2 [Moles/Vol] 24 mmol/L Normal 21-32 [facility] Comment on above: Order Comment: Speci men Type: BLOOD SPECIMENOrdering Facility: [facility] Address: [address] [place] [address] Performed By: #### 2 777-1, , ####[facility]ORATORYCLIA [id number] [place] [id number] [place] Creatinine [Mass/Vol] 1.06 mg/dL High 0.51-0.95 [facility] Comment on above: Order Comment: Speci men Type: BLOOD SPECIMENOrdering Facility: [facility] Address: [address] [place] [address] Result Comment: Sarika ents receiving either N-Acetylcysteine (NAC) or Metamizole prior to venipuncture, may have falsely depressed results. Performed By: #### 2 777-1, 12333-4, 04487-1 ####[facility]ORATORYCLIA [id number] [place] [id number] [place] Creatinine and Glomerular filtration rate.predicted panel (S/P/Bld) 63 mL/min/1.73m??? Normal >=60 [facility] Comment on above: Order Comment: Balbir howell Type: BLOOD SPECIMENOrdering Facility: [facility] Address: [address] [place] [address] Result Comment: Gina mated Glomerular Filtration Rate (eGFR) is calculated using the 2020 CKD-EPI creatinine equation. This equation utilizes serum creatinine, sex, and age as parameters. The creatinine assay has traceable calibration to isotope dilution-mass spectrometry. Refer to KDIGO guidelines for clinical interpretation. In patients with unstable renal function, e.g. those with acute kidney injury, the eGFR may not accurately reflect actual GFR. Performed By: #### 2 777-1, 34533-5, ####[facility]ORATORYCLIA [id number] [place] [id number] [place] Glucose [Mass/Vol] 118 mg/dL High 70-100 [facility] Comment on above: Order Comment: Balbir howell Type: BLOOD SPECIMENOrdering Facility: [facility] Address: [address] [place] [address] Result Comment: The [place] [employer] (ADA) provides guidance for cutoff values for fasting glucose and random glucose. The ADA defines fasting as no caloric intake for at least 8 hours. Fasting plasma glucose results between 100 to 125 mg/dL indicate increased risk for diabetes (prediabetes). Fasting plasma glucose results greater than or equal to 126 mg/dL meet the criteria for diagnosis of diabetes. In the absence of unequivocal hyperglycemia, results should be confirmed by repeat testing. In a patient with classic symptoms of hyperglycemia or hyperglycemic crisis, random plasma glucose results greater than or equal to 200 mg/dL meet the criteria for diagnosis of diabetes. Reference: Standards of Medical Care in Diabetes 2016, [place] [employer]. Diabetes Care. 2016.39(Suppl 1). Results may be falsely elevated after the administration of Sulfapyridine. Results may be falsely depressed after the administration of Sulfasalazine. Performed By: #### 2 777-1, , ####[facility]ORATORYCLIA [id number] [place] [id number] [place] Potassium [Moles/Vol] 3.9 mmol/L Normal 3.5-5.1 [facility] Comment on above: Order Comment: Speci men Type: BLOOD SPECIMENOrdering Facility: [facility] Address: [address] [place] [address] Performed By: #### 2 777-1, , ####[facility]ORATORYCLIA [id number] [place] [id number] [place] Protein [Mass/Vol] 4.8 g/dL Low 6.0-8.5 [facility] Comment on above: Order Comment: Speci men Type: BLOOD SPECIMENOrdering Facility: [facility] Address: [address] [place] [address] Performed By: #### 2 777-1, , ####[facility] LABORATORYCLIA [id number] [place] [id number] [place] Sodium [Moles/Vol] 143 mmol/L Normal 136-145 [facility] Comment on above: Order Comment: Speci men Type: BLOOD SPECIMENOrdering Facility: [facility] Address: [address] [place] [address] Performed By: #### 2 777-1, , ####[facility] LABORATORYCLIA [id number] [place] [address] [place] Urea nitrogen [Mass/Vol] 35 mg/dL High 7-26 [facility] Comment on above: Order Comment: Speci men Type: BLOOD SPECIMENOrdering Facility: [facility] Address: [address] [place] [address] Performed By: #### 2 777-1, , ####[facility]ORATORYCLIA [id number] [place] [address] [place] Hgb Bld-mCncon 07-17-2024 Hemoglobin (Bld) [Mass/Vol] 7.3 g/dL Low 11.5-15.5 [facility] Comment on above: Order Comment: Speci men Type: BLOOD SPECIMENOrdering Facility: [facility] Address: [address] [place] [address] Performed By: #### 7 18-7 ####[facility] LABORATORYCLIA [id number] [place] [address] [place] Hemoglobin (Bld) [Mass/Vol] 7.0 g/dL Low 11.5-15.5 [facility] Comment on above: Order Comment: Speci men Type: BLOOD SPECIMENOrdering Facility: [facility] Address: [address] [place] [address] Performed By: #### 7 18-7 ####[facility] LABORATORYCLIA [id number] [place] [address] [place] Hemoglobin (Bld) [Mass/Vol] 7.5 g/dL Low 11.5-15.5 [facility] Comment on above: Order Comment: Speci men Type: BLOOD SPECIMENOrdering Facility: [facility] Address: [address] [place] [address] Performed By: #### 7 18-7 ####[facility] LABORATORYCLIA [id number] [place] [address] [place] Hemoglobin (Bld) [Mass/Vol] 7.9 g/dL Low 11.5-15.5 [facility] Comment on above: Order Comment: Speci men Type: BLOOD SPECIMENOrdering Facility: [facility] Address: [address] [place] [address] Performed By: #### 7 18-7 ####[facility] LABORATORYCLIA [id number] [place] [address] [place] Magnesium SerPl-mCncon 07-17 Magnesium [Mass/Vol] 1.7 mg/dL Normal 1.6-2.6 [facility] Comment on above: Order Comment: Specstarr men Type: BLOOD SPECIMENOrdering Facility: [facility] Address: [address] [place] [address] Performed By: #### 2 777-1, 34407-0, 15897-1 ####[facility] LABORATORYCLIA [id number] [place] [id number] [place] PT panel Coag (PPP)on 2023 INR Coag (PPP) [Relative time] 1.0 {INR} Normal 0.9-1.3 [facility] Comment on above: Order Comment: Balbir dante Type: BLOOD SPECIMENOrdering Facility: [facility] Address: [address] [place] [address] Result Comment: Aliya min K Antagonist (VKA) Therapeutic Range: INR 2 to 3 (Target INR of 2.5) Note: For patients treated with VKA drugs, such as warfarin, the [employer] [employer] 2012 Guideline recommends a therapeutic INR range of 2 to 3 (target INR of 2.5). This recommendation includes high-risk patients with antiphospholipid syndrome with previous arterial or venous thromboembolism, current-generation mechanical or bioprosthetic aortic heart valve replacement. Note: Patients with mechanical aortic valve replacement and additional risk factors for thromboembolic events (atrial fibrillation, previous thromboembolism, LV dysfunction, hypercoagulable conditions) or an older generation mechanical AVR (i.e., ball in-Cage) or any mechanical MVR should have a INR therapeutic range of 2.5 to 3.5 (target INR of 3). Sigifredo GH, et al. Chest 2012, 141:7S-47S Jakub RA, et al. [facility] 2017, 70: 252-289 Performed By: #### 1 4979-9, 04740-9 ####[facility] LABORATORYCLIA [id number] [place] [id number] [place] PT Coag (PPP) [Time] 11.2 s Normal 9.7-13.0 [facility] Comment on above: Order Comment: Yasminei men Type: BLOOD SPECIMENOrdering Facility: [facility] Address: [address] [place] [address] Performed By: #### 1 4979-9, 69407-6 ####[facility] LABORATORYCLIA [id number] [place] [address] [place] Phosphate SerPl-mCncon 07-17 Phosphate [Mass/Vol] 4.1 mg/dL Normal 2.5-4.9 [facility] Comment on above: Order Comment: Speci men Type: BLOOD SPECIMENOrdering Facility: [facility] Address: [address] [place] [address] Result Comment: Elev ated m-protein (paraprotein) levels in the serum may be exhibited in patients with monoclonal gammopathies, causing falsely elevated inorganic phosphorus results. Performed By: #### 2 777-1, 89988-3, 22938-5 ####[facility] LABORATORYCLIA [id number] [address] [place] TOXICOLOGY SCREEN, ROUTINE U RINEon 07-17-2024 Amphetamines Confirm (U) [Mass/Vol] Negative Normal Negative [facility] Comment on above: Order Comment: Speci men Type: URINE SPECIMENOrdering Facility: [facility] Address: [address] [place] [address] Result Comment: Cuto ff threshold at 1000 ng/mL. Performed By: #### U TOX2 ####[facility] LABORATORYCLIA [id number] [place] [address] [place] BARBITURATES, URINE Negative Normal Negative [facility] Comment on above: Order Comment: Speci men Type: URINE SPECIMENOrdering Facility: [facility] Address: [address] [place] [address] Result Comment: Cuto ff threshold at 200 ng/mL. Performed By: #### U TOX2 ####[facility] LABORATORYCLIA [id number] [place] [address] [place] BENZODIAZEPINES, UR Negative Normal Negative [facility] Comment on above: Order Comment: Speci men Type: URINE SPECIMENOrdering Facility: [facility] Address: [address] [place] [address] Result Comment: Cuto ff threshold at 200 ng/mL. Performed By: #### U TOX2 ####[facility] LABORATORYCLIA [id number] [place] [address] [place] Cannabinoids Screen Ql (U) Positive Abnormal Negative [facility] Comment on above: Order Comment: Speci men Type: URINE SPECIMENOrdering Facility: [facility] Address: [address] [place] [address] Result Comment: Cuto ff threshold at 50 ng/mL. Performed By: #### U TOX2 ####[facility] LABORATORYCLIA [id number] [place] [address] [place] Cocaine Ql (U) Negative Normal Negative [facility] Comment on above: Order Comment: Speci men Type: URINE SPECIMENOrdering Facility: [facility] Address: [address] [place] [address] Result Comment: Cuto ff threshold at 300 ng/mL. Performed By: #### U TOX2 ####[facility] LABORATORYCLIA [id number] [address] Opiates Screen Ql (U) Negative Normal Negative [facility] Comment on above: Order Comment: Speci men Type: URINE SPECIMENOrdering Facility: [facility] Address: [address] [place] [address] Result Comment: Cuto ff threshold at 300 ng/mL. Performed By: #### U TOX2 ####[facility] LABORATORYCLIA [id number] [place] [address] [place] Phencyclidine Ql (U) Negative Normal Negative [facility] Comment on above: Order Comment: Speci men Type: URINE SPECIMENOrdering Facility: [facility] Address: [address] [place] [address] Result Comment: Cuto ff threshold at 25 ng/mL. Performed By: #### U TOX2 ####[facility] LABORATORYCLIA [id number] [place] [address] [place] US ABD RIGHT UPPER QUADRANTo n 07-17-2024 US ABD RIGHT UPPER QUADRANT * * *Final Report* * * DATE OF EXAM: Jul 17 2024 11:49AM RHU 1032 - US ABD RIGHT UPPER QUADRANT / PROCEDURE REASON: Abn liver function tests (LFTs) * * * * Physician Interpretation * * * * EXAMINATION: RIGHT UPPER QUADRANT AND SPLEEN ULTRASOUND with hepatic elastography CLINICAL HISTORY: Abnormal liver function tests. TECHNIQUE: Sonography of the right upper quadrant and spleen was performed. Images were obtained and stored in a permanent archive. MQ: URUQ_2 COMPARISON: CT scan 07/16/2024 RESULT: Pancreas: Normal sonographic appearance. Portions obscured: tail Liver: 13.5 cm in length. Echotexture: Normal, homogeneous. Echogenicity: Normal Surface contour: Smooth Lesions: None. Biliary: No intrahepatic biliary duct dilation. CBD: 0.5 cm at the hilum. Gallbladder: Normal caliber -Contents: No cholelithiasis -Wall: Normal -Other: No pericholecystic fluid. Right Kidney: No hydronephrosis. Left kidney: No hydronephrosis Ascites: None. Spleen: The craniocaudal length of the spleen is 11 cm, normal. There are no splenic lesions. ARFI median: 1.02 m/s IQR - 0.11 IQR/median ratio = 0.11 (must be 0.15 or less to ensure technical adequacy) Recommendation for Interpretation of Liver Stiffness Values Obtained with ARFI Techniques in Patients with Viral Hepatitis and NAFLD: Liver Stiffness Value: Recommendation: <=5 kPa (1.3 m/sec) High probability of being normal <9 kPa (1.7 m/sec) In absence of other known clinical signs, rules out cACLD. <9 kPa (1.7 m/sec) If known clinical signs, may need further test for confirmation. 9-13 kPa (1.7-2.1 m/sec) Suggestive of cACLD but need further test for confirmation > 13 kPa (2.1 m/sec) Rules in cACLD > 17 kPa (2.4 m/sec) Suggestive of CSPH ARFI = acoustic radiation force impulse cACLD = compensated advanced chronic liver disease CSPH = clinically significant portal hypertension NAFLD = non-alcoholic fatty liver disease IMPRESSION: Normal sonographic appearance of the right upper quadrant and spleen. Hepatic elastography indicating high probability of normal hepatic stiffness Chemical Checker: ROSMERY Transcribe Date/Time: Jul 18 2024 2:06P Dictated by : PATRICK HAILE MD This examination was interpreted and the report reviewed and electronically signed by: PATRICK HAILE MD on Jul 18 2024 2:20PM EST [id number] CN Normal [facility] US ABD SPLEENon 07-17-2024 US ABD SPLEEN * * *Final Report* * * DATE OF EXAM: Jul 17 2024 11:49AM RHU 1039 - US ABD SPLEEN / PROCEDURE REASON: Abn liver function tests (LFTs) * * * * Physician Interpretation * * * * EXAMINATION: RIGHT UPPER QUADRANT AND SPLEEN ULTRASOUND with hepatic elastography CLINICAL HISTORY: Abnormal liver function tests. TECHNIQUE: Sonography of the right upper quadrant and spleen was performed. Images were obtained and stored in a permanent archive. MQ: URUQ_2 COMPARISON: CT scan 07/16/2024 RESULT: Pancreas: Normal sonographic appearance. Portions obscured: tail Liver: 13.5 cm in length. Echotexture: Normal, homogeneous. Echogenicity: Normal Surface contour: Smooth Lesions: None. Biliary: No intrahepatic biliary duct dilation. CBD: 0.5 cm at the hilum. Gallbladder: Normal caliber -Contents: No cholelithiasis -Wall: Normal -Other: No pericholecystic fluid. Right Kidney: No hydronephrosis. Left kidney: No hydronephrosis Ascites: None. Spleen: The craniocaudal length of the spleen is 11 cm, normal. There are no splenic lesions. ARFI median: 1.02 m/s IQR - 0.11 IQR/median ratio = 0.11 (must be 0.15 or less to ensure technical adequacy) Recommendation for Interpretation of Liver Stiffness Values Obtained with ARFI Techniques in Patients with Viral Hepatitis and NAFLD: Liver Stiffness Value: Recommendation: <=5 kPa (1.3 m/sec) High probability of being normal <9 kPa (1.7 m/sec) In absence of other known clinical signs, rules out cACLD. <9 kPa (1.7 m/sec) If known clinical signs, may need further test for confirmation. 9-13 kPa (1.7-2.1 m/sec) Suggestive of cACLD but need further test for confirmation > 13 kPa (2.1 m/sec) Rules in cACLD > 17 kPa (2.4 m/sec) Suggestive of CSPH ARFI = acoustic radiation force impulse cACLD = compensated advanced chronic liver disease CSPH = clinically significant portal hypertension NAFLD = non-alcoholic fatty liver disease IMPRESSION: Normal sonographic appearance of the right upper quadrant and spleen. Hepatic elastography indicating high probability of normal hepatic stiffness Chemical Checker: ROSMERY Transcribe Date/Time: Jul 18 2024 2:06P Dictated by : PATRICK HAILE MD This examination was interpreted and the report reviewed and electronically signed by: PATRICK HAILE MD on Jul 18 2024 2:20PM EST [id number] CN Normal [facility] US ELASTROGRAPHY LIVERon US ELASTROGRAPHY LIVER * * *Final Report * * * DATE OF EXAM: Jul 17 2024 11:49AM RHU 1199 - US ELASTROGRAPHY LIVER / PROCEDURE REASON: Cirrhosis * * * * Physician Interpretation * * * * EXAMINATION: RIGHT UPPER QUADRANT AND SPLEEN ULTRASOUND with hepatic elastography CLINICAL HISTORY: Abnormal liver function tests. TECHNIQUE: Sonography of the right upper quadrant and spleen was performed. Images were obtained and stored in a permanent archive. MQ: URUQ_2 COMPARISON: CT scan 07/16/2024 RESULT: Pancreas: Normal sonographic appearance. Portions obscured: tail Liver: 13.5 cm in length. Echotexture: Normal, homogeneous. Echogenicity: Normal Surface contour: Smooth Lesions: None. Biliary: No intrahepatic biliary duct dilation. CBD: 0.5 cm at the hilum. Gallbladder: Normal caliber -Contents: No cholelithiasis -Wall: Normal -Other: No pericholecystic fluid. Right Kidney: No hydronephrosis. Left kidney: No hydronephrosis Ascites: None. Spleen: The craniocaudal length of the spleen is 11 cm, normal. There are no splenic lesions. ARFI median: 1.02 m/s IQR - 0.11 IQR/median ratio = 0.11 (must be 0.15 or less to ensure technical adequacy) Recommendation for Interpretation of Liver Stiffness Values Obtained with ARFI Techniques in Patients with Viral Hepatitis and NAFLD: Liver Stiffness Value: Recommendation: <=5 kPa (1.3 m/sec) High probability of being normal <9 kPa (1.7 m/sec) In absence of other known clinical signs, rules out cACLD. <9 kPa (1.7 m/sec) If known clinical signs, may need further test for confirmation. 9-13 kPa (1.7-2.1 m/sec) Suggestive of cACLD but need further test for confirmation > 13 kPa (2.1 m/sec) Rules in cACLD > 17 kPa (2.4 m/sec) Suggestive of CSPH ARFI = acoustic radiation force impulse cACLD = compensated advanced chronic liver disease CSPH = clinically significant portal hypertension NAFLD = non-alcoholic fatty liver disease IMPRESSION: Normal sonographic appearance of the right upper quadrant and spleen. Hepatic elastography indicating high probability of normal hepatic stiffness Chemical Checker: ROSMERY Transcribe Date/Time: Jul 18 2024 2:06P Dictated by : PATRICK HAILE MD This examination was interpreted and the report reviewed and electronically signed by: PATRICK HAILE MD on Jul 18 2024 2:20PM EST [id number] CN Normal [facility] Urinalysis complete panel (U )on 07-17-2024 Bacteria LM.HPF (Urine sed) [#/Area] Rare Abnormal None Seen [facility] Comment on above: Order Comment: Speci men Type: URINE SPECIMENOrdering Facility: [facility] Address: [address] [place] [address] Performed By: #### 2 4356-8 ####[facility] LABORATORYCLIA [id number] [place] [address] [place] Bilirubin Ql (U) Negative Normal Negative [facility] Comment on above: Order Comment: Speci men Type: URINE SPECIMENOrdering Facility: [facility] Address: [address] [place] [address] Performed By: #### 2 4356-8 ####[facility] LABORATORYCLIA [id number] [place] [address] [place] Clarity (Unsp spec) Clear Normal Clear [facility] Comment on above: Order Comment: Speci men Type: URINE SPECIMENOrdering Facility: [facility] Address: [address] [place] [address] Performed By: #### 2 4356-8 ####[facility] LABORATORYCLIA [id number] [place] [address] [place] Color (U) Straw Normal Yellow [facility] Comment on above: Order Comment: Speci men Type: URINE SPECIMENOrdering Facility: [facility] Address: [address] [place] [address] Performed By: #### 2 4356-8 ####[facility] LABORATORYCLIA [id number] [place] [address] [place] Epithelial cells LM.HPF (Urine sed) [#/Area] Few Normal [facility] Comment on above: Order Comment: Speci men Type: URINE SPECIMENOrdering Facility: [facility] Address: [address] [place] [address] Performed By: #### 2 4356-8 ####[facility] LABORATORYCLIA [id number] [address] [place] Glucose Test strip (U) [Mass/Vol] Negative Normal Negative [facility] Comment on above: Order Comment: Speci men Type: URINE SPECIMENOrdering Facility: [facility] Address: [address] [place] [address] Performed By: #### 2 4356-8 ####[facility] LABORATORYCLIA [id number] [place] [address] [place] Hemoglobin Ql (U) Negative Normal Negative [facility] Comment on above: Order Comment: Speci men Type: URINE SPECIMENOrdering Facility: [facility] Address: [address] [place] [address] Performed By: #### 2 4356-8 ####[facility] LABORATORYCLIA [id number] [place] [address] [place] Ketones Ql (U) Negative Normal Negative [facility] Comment on above: Order Comment: Speci men Type: URINE SPECIMENOrdering Facility: [facility] Address: [address] [place] [address] Performed By: #### 2 4356-8 ####[facility] LABORATORYCLIA [id number] [address] [place] Leukocyte esterase Test strip Ql (U) Trace Abnormal Negative [facility] Comment on above: Order Comment: Speci men Type: URINE SPECIMENOrdering Facility: [facility] Address: [address] [place] [address] Performed By: #### 2 4356-8 ####[facility] LABORATORYCLIA [id number] [place] [address] [place] Nitrite Ql (U) Negative Normal Negative [facility] Comment on above: Order Comment: Speci men Type: URINE SPECIMENOrdering Facility: [facility] Address: [address] [place] [address] Performed By: #### 2 4356-8 ####[facility] LABORATORYCLIA [id number] [address] [place] pH (U) 6.0 [pH] Normal 5.0-8.0 [facility] Comment on above: Order Comment: Speci men Type: URINE SPECIMENOrdering Facility: [facility] Address: [address] [place] [address] Performed By: #### 2 4356-8 ####[facility] LABORATORYCLIA [id number] [address] STATES [facility] Protein (U) [Mass/Vol] Negative Normal Negative [facility] Comment on above: Order Comment: Speci men Type: URINE SPECIMENOrdering Facility: [facility] Address: [address] [place] [address] Performed By: #### 2 4356-8 ####[facility] LABORATORYCLIA [id number] [place] [address] [place] RBC LM.HPF (Urine sed) [#/Area] 3-5 /HPF Abnormal 0-3 /HPF [facility] Comment on above: Order Comment: Speci men Type: URINE SPECIMENOrdering Facility: [facility] Address: [address] [place] [address] Performed By: #### 2 4356-8 ####[facility] LABORATORYCLIA [id number] [place] [address] [place] Specific gravity (U) [Rel density] 1.008 Normal 1.005-1.030 [facility] Comment on above: Order Comment: Speci men Type: URINE SPECIMENOrdering Facility: [facility] Address: [address] [place] [address] Performed By: #### 2 4356-8 ####[facility] LABORATORYCLIA [id number] [place] [address] [place] Urobilinogen Ql (U) Negative Normal Negative [facility] Comment on above: Order Comment: Speci men Type: URINE SPECIMENOrdering Facility: [facility] Address: [address] [place] [address] Performed By: #### 2 4356-8 ####[facility] LABORATORYIA [id number] [place] [address] [place] WBC LM.HPF (Urine sed) [#/Area] 0-5 /HPF Normal 0-5 /HPF [facility] Comment on above: Order Comment: Speci men Type: URINE SPECIMENOrdering Facility: [facility] Address: [address] [place] [address] Performed By: #### 2 4356-8 ####[facility] LABORATORYIA [id number] [place] [address] [place] aPTT PPPon 07-17-2024 aPTT Coag (PPP) [Time] 23.6 s Normal 23.0-32.4 [facility] Comment on above: Order Comment: Speci men Type: BLOOD SPECIMENOrdering Facility: [facility] Address: [address] [place] [address] Performed By: #### 1 4979-9, 12202-5 ####[facility] LABORATORYIA [id number] [place] [address] [place] APAP SerPl-mCncon 07-16-2024 Acetaminophen [Mass/Vol] ug/mL Low 10-30 [facility] Comment on above: Order Comment: Speci men Type: BLOOD SPECIMENOrdering Facility: [facility] Address: [address] [place] [address] Result Comment: Toxi c > 50 ug/mL 4 hours post ingestion The Devang Lau nomogram can be used to estimate the probability of hepatotoxicity via the relationship of plasma acetaminophen concentration to the post ingestion interval. (Evelia. Pediatrics. 1975. 55:871 to 876 and Devang et al. Arch Physics Technician Med. 1981. 141:380 to 385). Reference ranges and high/low indicator flags are provided as general guidelines only. The treating physician must determine appropriate target levels/dosing based on the specific clinical situation. Performed By: #### 5 0190-8, 2276-4, 2132-9, 5643-2, HSTROP, TSHRF, 53896-6, 63257-7, 3298-7 ####[facility] LABORATORYCLIA [id number] [address] OF [facility] Ammonia Plas-sCncon 07-16-20 24 Ammonia (P) [Moles/Vol] 15 umol/L Normal 11-32 [facility] Comment on above: Order Comment: Speci men Type: BLOOD SPECIMENOrdering Facility: [facility] Address: [address] [place] [address] Result Comment: Resu lts may be falsely depressed after the administration of Sulfapyridine. Results may be falsely elevated after the administration of Sulfasalazine. Performed By: #### 1 6362-6 ####[facility] LABORATORYCLIA [id number] [address] BLOOD BANK COMMENTon 024 BLOOD BANK COMMENT See Comment Normal [facility] Comment on above: Order Comment: Speci men Type: BLOOD SPECIMENOrdering Facility: [facility] Address: [address] [place] [address] Result Comment: 2nd sample NEEDED for ABO confirmation (CONABO) Notified ANTHONY Griffin 4040 07/16/24 Performed By: #### L SL6511, TSCR ####[facility] BLOOD BANKCLIA [id number] [address] [place] Bacteria Bld Culton 07-16-20 24 Bacteria identified Cx Nom (Bld) CULTURE, BLOOD: No growth 5 days Normal [facility] Comment on above: Performed By: #### 6 00-7 ####[facility] LABORATORYCLIA [id number] [address] [place] Bacteria identified Cx Nom (Bld) CULTURE, BLOOD: No growth 5 days Normal [facility] Comment on above: Performed By: #### 6 00-7 ####[facility] LABORATORYCLIA [id number] [place] [address] [place] CBC W Auto Differential pane l (Bld)on 07-16-2024 Basophils (Bld) [#/Vol] 0.04 10*3/uL Normal <0.11 [facility] Comment on above: Order Comment: Speci men Type: BLOOD SPECIMENOrdering Facility: [facility] Address: [address] [place] [address] Performed By: #### 5 5454-3 ####[facility] LABCLIA [id number] [place] [address] [place]#### 19425-5 ####[facility] LABORATORYCLIA [id number] [address] [place] Basophils/100 WBC (Bld) 0.2 % Normal [facility] Comment on above: Order Comment: Speci men Type: BLOOD SPECIMENOrdering Facility: [facility] Address: [address] [place] [address] Performed By: #### 5 5454-3 ####[facility] LABCLIA [id number] [place] [address] [place]#### 64006-2 ####[facility] LABORATORYCLIA [id number] [place] [address] [place] Differential cell count method Nom (Bld) Auto Normal [facility] Comment on above: Order Comment: Speci men Type: BLOOD SPECIMENOrdering Facility: [facility] Address: [address] [place] [address] Performed By: #### 5 5454-3 ####[facility] LABCLIA [id number] [place] [address] [place]#### 98099-0 ####[facility] LABORATORYCLIA [id number] [place] [address] [place] Eosinophils (Bld) [#/Vol] 0.03 10*3/uL Normal <0.46 [facility] Comment on above: Order Comment: Speci men Type: BLOOD SPECIMENOrdering Facility: [facility] Address: [address] [place] [address] Performed By: #### 5 5454-3 ####[facility] LABCLIA [id number] [place] [address] [place]#### 90212-4 ####[facility] LABORATORYCLIA [id number] [place] [address] [place] Eosinophils/100 WBC (Bld) 0.2 % Normal [facility] Comment on above: Order Comment: Speci men Type: BLOOD SPECIMENOrdering Facility: [facility] Address: [address] [place] [address] Performed By: #### 5 5454-3 ####[facility] LABCLIA [id number] [place] [address] [place]#### 37210-8 ####[facility] LABORATORYCLIA [id number] [place] [address] [place] Erythrocyte distribution width (RBC) [Ratio] 12.6 % Normal 11.5-15.0 [facility] Comment on above: Order Comment: Speci men Type: BLOOD SPECIMENOrdering Facility: [facility] Address: [address] [place] [address] Performed By: #### 5 5454-3 ####[facility] LABCLIA [id number] [place] [address] [place]#### 86067-5 ####[facility] LABORATORYCLIA [id number] [place] [address] [place] Hematocrit (Bld) [Volume fraction] 26.9 % Low 36.0-46.0 [facility] Comment on above: Order Comment: Speci men Type: BLOOD SPECIMENOrdering Facility: [facility] Address: [address] [place] [address] Performed By: #### 5 5454-3 ####[facility] LABCLIA [id number] [place] [address] [place]#### 44448-0 ####[facility] LABORATORYCLIA [id number] [place] [address] [place] Hemoglobin (Bld) [Mass/Vol] 9.2 g/dL Low 11.5-15.5 [facility] Comment on above: Order Comment: Speci men Type: BLOOD SPECIMENOrdering Facility: [facility] Address: [address] [place] [address] Performed By: #### 5 5454-3 ####[facility] LABCLIA [id number] [place] [address] [place]#### 86861-6 ####[facility] LABORATORYCLIA [id number] [place] [address] [place] Immature granulocytes (Bld) [#/Vol] 0.25 10*3/uL High <0.10 [facility] Comment on above: Order Comment: Speci men Type: BLOOD SPECIMENOrdering Facility: [facility] Address: [facility] [place] [address] Performed By: #### 5 5454-3 ####[facility] LABCLIA [id number] [place] [address] [place]#### 76575-7 ####[facility] LABORATORYCLIA [id number] [place] [address] [place] Immature granulocytes/100 WBC (Bld) 1.4 % Normal [facility] Comment on above: Order Comment: Speci men Type: BLOOD SPECIMENOrdering Facility: [facility] Address: [address] [place] [address] Performed By: #### 5 5454-3 ####[facility] LABCLIA [id number] [place] [address] [place]#### 29631-3 ####[facility] LABORATORYCLIA [id number] [place] [address] [place] Lymphocytes (Bld) [#/Vol] 1.37 10*3/uL Normal 1.00-4.00 [facility] Comment on above: Order Comment: Speci men Type: BLOOD SPECIMENOrdering Facility: [facility] Address: [address] [place] [address] Performed By: #### 5 5454-3 ####[facility] LABCLIA [id number] [place] [address] [place]#### 96051-1 ####[facility] LABORATORYCLIA [id number] [place] [address] [place] Lymphocytes/100 WBC (Bld) 7.4 % Normal [facility] Comment on above: Order Comment: Speci men Type: BLOOD SPECIMENOrdering Facility: [facility] Address: [address] [place] [address] Performed By: #### 5 5454-3 ####[facility] LABCLIA [id number] [place] [address] [place]#### 91563-5 ####[facility] LABORATORYCLIA [id number] [place] [address] [place] MCH (RBC) [Entitic mass] 31.4 pg Normal 26.0-34.0 [facility] Comment on above: Order Comment: Speci men Type: BLOOD SPECIMENOrdering Facility: [facility] Address: [address] [place] [address] Performed By: #### 5 5454-3 ####[facility] LABCLIA [id number] [place] [address] [place]#### 87106-1 ####[facility] LABORATORYCLIA [id number] [place] [address] [place] MCHC (RBC) [Mass/Vol] 34.2 g/dL Normal 30.5-36.0 [facility] Comment on above: Order Comment: Speci men Type: BLOOD SPECIMENOrdering Facility: [facility] Address: [address] [place] [address] Performed By: #### 5 5454-3 ####[facility] LABCLIA [id number] [address] [address] [place]#### 46054-5 ####[facility] LABORATORYCLIA [id number] [place] [address] [place] MCV (RBC) [Entitic vol] 91.8 fL Normal 80.0-100.0 M [facility] Comment on above: Order Comment: Speci men Type: BLOOD SPECIMENOrdering Facility: [facility] Address: [address] [place] [address] Performed By: #### 5 5454-3 ####[facility] LABCLIA [id number] [place] [address] [place]#### 58255-9 ####[facility] LABORATORYIA [id number] [place] [address] [place] Monocytes (Bld) [#/Vol] 1.14 10*3/uL High <0.87 [facility] Comment on above: Order Comment: Speci men Type: BLOOD SPECIMENOrdering Facility: [facility] Address: [address] [place] [address] Performed By: #### 5 5454-3 ####[facility] LABCLIA [id number] [place] [address] [place]#### 70988-4 ####[facility] LABORATORYCLIA [id number] [place] [address] [place] Monocytes/100 WBC (Bld) 6.2 % Normal [facility] Comment on above: Order Comment: Speci men Type: BLOOD SPECIMENOrdering Facility: [facility] Address: [address] [place] [address] Performed By: #### 5 5454-3 ####[facility] LABCLIA [id number] [place] [address] [place]#### 43542-0 ####[facility] LABORATORYCLIA [id number] [place] [address] [place] Neutrophils (Bld) [#/Vol] 15.68 10*3/uL High 1.45-7.50 [facility] Comment on above: Order Comment: Speci men Type: BLOOD SPECIMENOrdering Facility: [facility] Address: [address] [place] [address] Performed By: #### 5 5454-3 ####[facility] LABCLIA [id number] [place] [address] [place]#### 98843-1 ####[facility] LABORATORYCLIA [id number] [address] [place] Neutrophils/100 WBC (Bld) 84.6 % Normal [facility] Comment on above: Order Comment: Speci men Type: BLOOD SPECIMENOrdering Facility: [facility] Address: [address] [place] [address] Performed By: #### 5 5454-3 ####[facility] LABCLIA [id number] [place] [address] [place]#### 82649-3 ####[facility] [id number] [place] [address] [place] Nucleated RBC (Bld) [#/Vol] 10*3/uL Normal <0.01 [facility] Comment on above: Order Comment: Speci men Type: BLOOD SPECIMENOrdering Facility: [facility] Address: [address] [place] [address] Performed By: #### 5 5454-3 ####[facility] LABCLIA [id number] [address] [place]#### 32272-4 ####[facility] LABORATORYCLIA [id number] [address] [place] Nucleated RBC/100 WBC (Bld) [Ratio] 0.0 /100 WBC Normal [facility] Comment on above: Order Comment: Speci men Type: BLOOD SPECIMENOrdering Facility: [facility] Address: [address] [place] [address] Performed By: #### 5 5454-3 ####[facility] LABCLIA [id number] [address] [place]#### 64812-4 ####[facility] LABORATORYCLIA [id number] [place] [address] [place] Platelet mean volume (Bld) [Entitic vol] 9.6 fL Normal 9.0-12.7 [facility] Comment on above: Order Comment: Speci men Type: BLOOD SPECIMENOrdering Facility: [facility] Address: [address] [place] [address] Performed By: #### 5 5454-3 ####[facility] LABCLIA [id number] [place] [address] [place]#### 95273-6 ####[facility] LABORATORYCLIA [id number] [place] [address] [place] Platelets (Bld) [#/Vol] 283 10*3/uL Normal 150-400 [facility] Comment on above: Order Comment: Speci men Type: BLOOD SPECIMENOrdering Facility: [facility] Address: [address] [place] [address] Performed By: #### 5 5454-3 ####[facility] LABCLIA [id number] [place] [address] [place]#### 32717-9 ####[facility] LABORATORYCLIA [id number] [place] [address] [place] RBC (Bld) [#/Vol] 2.93 10*6/uL Low 3.90-5.20 [facility] Comment on above: Order Comment: Speci men Type: BLOOD SPECIMENOrdering Facility: [facility] Address: [address] [place] [address] Performed By: #### 5 5454-3 ####[facility] LABCLIA [id number] [place] [address] [place]#### 35814-3 ####[facility] LABORATORYCLIA [id number] [place] [address] [place] WBC (Bld) [#/Vol] 18.51 10*3/uL High 3.70-11.00 [facility] Comment on above: Order Comment: Speci men Type: BLOOD SPECIMENOrdering Facility: [facility] Address: [address] [place] [address] Performed By: #### 5 5454-3 ####[facility] LABCLIA [id number] [place] [address] [place]#### 96088-4 ####[facility] LABORATORYCLIA [id number] [place] [address] [place] CONFIRM BLOOD TYPEon -22-2 024 ABO A Normal [facility] Comment on above: Order Comment: Speci men Type: BLOOD SPECIMENOrdering Facility: [facility] Address: [address] [place] [address] Performed By: #### 6 30-4 #### [facility] CLIA [id number] [address] [place], [place] [id number] [facility] [place] Rh Nom (Bld) Positive Normal [facility] Comment on above: Order Comment: Speci men Type: BLOOD SPECIMENOrdering Facility: [facility] Address: [address] [place] [id number] Performed By: #### 6 30-4 #### [facility] CLIA [id number] [address] [place], [place] [id number] [facility] CONSULTon 07-16-2024 CONSULT HNO ID: [id number] Author: VLAD CANCINO MD Service: Gastroenterology Author Type: Physician Type: Consults Filed: 07/17/2024 09:34 Note Text: Gastroenterology INITIAL CONSULT NOTE SERVICE DATE: 07/16/2024 SERVICE TIME: 8:33 PM REASON FOR CONSULT: GI bleeding, hematemesis REQUESTING PHYSICIAN: Mio Meadows MD PRIMARY CARE PHYSICIAN: Bautista Manzano MD Subjective Ms. Childers is a 54 year old female who recently hospitalized and discharged today (07/13-07/16) in outside hospital because of suicidal attempt. Reportedly she took multiple relaxants pills. She was discharged today to a psychiatric unit, however she was brought here via EMS because of GI bleeding. Mentioned that she had couple episodes of bloody vomitus, and then another episode of hematemesis here in the ED. Arrival, hemoglobin was 9.2, reportedly baseline 10-13. Her blood pressure was also in 80s over 50s but improved quickly with IVF, and heart rate about 110-120. Labs also showed elevated lactic acid and leukocytosis. CT abdomen/pelvis with IV contrast did not show abnormal findings. He has history of CAD on aspirin and Brilinta, took both earlier today. She denied taking any other NSAIDs. The patient could not give me more information. Most of HPI information wire from chart review and discussion with ED physician. PAST MEDICAL HISTORY Diagnosis Date Abnormal Pap smear 09/2008 LGSIL and Positive HPV Abnormal Pap smear 04/2009 HGSIL Encounter for insertion or removal of intrauterine contraceptive device 12/13/2008 Mirena Endometriosis Fibromyalgia 08/14/2012 Hypertension Palpitations S/P SHREE (total abdominal hysterectomy) 05/15/2010 PAST SURGICAL HISTORY Procedure Laterality Date APPENDECTOMY CONIZATION CERVIX W/WO DANDC RPR ELTRD EXC 06/21/2009 (LEEP) INSERT INTRAUTERINE DEVICE 12/13/2008 Mirena IUD REMOVAL 03/22/2010 LAPS ABD PRTMANDOMENTUM DX W/WO SPEC BR/WA SPX Laparoscopy TONSILLECTOMY PRIMARY/SECONDARY Tonsillectomy TOTAL ABDOMINAL HYSTERECT W/WO RMVL TUBE OVARY 05/15/2010 Dr. Dodd; Dysplasia, Metrorrhagia, Dysmenorrhea TRANSV CAROTID STENT PLACEMT 10/25/2023 [place] VAGINOSCOPY 02/01/2010 FAMILY HISTORY Problem Relation Age of Onset Hypertension Mother Coronary Artery Disease Maternal Grandfather Coronary Artery Disease Paternal Grandfather Social History Tobacco Use Smoking status: Former Current packs/day: 0.00 Average packs/day: 0.8 packs/day for 27.0 years (20.3 ttl pk-yrs) Types: Cigarettes Start date: 10/24/1996 Quit date: 10/25/2023 Years since quittin.7 Smokeless tobacco: Never Tobacco comments: Started smoking age 26 Vaping Use Vaping status: Some Days Substances: Nicotine, Flavoring Substance Use Topics Alcohol use: No Drug use: No (Not in a hospital admission) Current Facility-Administere d Medications Medication Dose Route Frequency iv contrast (radiology procedure) INTRAVENOUS DIRECTED PRN NaCl 0.9% iv flush bag 20 mL INTRAVENOUS PRN lactated ringers 1,000 mL iv bolus 1,000 mL INTRAVENOUS ONCE pantoprazole 80 mg in NaCl 0.9% 100 mL (PROTONIX) CONTINUOUS INFUSION 8 mg/hr INTRAVENOUS CONTINUOUS ondansetron (PF) 4 mg injection (ZOFRAN) 4 mg INTRAVENOUS ONCE levalbuterol 0.63 mg nebulizer solution (XOPENEX) 0.63 mg INHALATION q 6 H PRN Allergies As of Date: 07/16/2024 Allergen Noted Reaction CODEINE 12/18/2023 Vomiting Fully Assessed 07/16/2024 COMPLETE REVIEW OF SYSTEMS: GENERAL: No weight loss, malaise or fevers HEENT: Negative for frequent or significant headaches, No changes in hearing or vision, no nose bleeds or other nasal problems NECK: Negative for lumps, goiter, pain and significant neck swelling RESPIRATORY: Negative for cough, hemoptysis, wheezing, or shortness of breath CARDIOVASCULAR: Negative for chest pain, leg swelling GI: Reviewed, see HPI : No history of dysuria, frequency or incontinence MUSCULOSKELETAL: Positive for joint and muscle aches and pains I have fibromyalgia SKIN: Negative for lesions, rash, and itching PSYCH: Positive for sleep disturbance, mood disorder and recent suicide attempt HEMATOLOGY/LYMPHOLOG Y: Negative for prolonged bleeding, bruising easily or swollen nodes ENDOCRINE: Negative for cold or heat intolerance, polyuria, polydipsia and goiter NEURO: No history of headaches, syncope, paralysis, seizures or tremors Objective PHYSICAL EXAM: Physical Exam Performed: GENERAL: Alert, awake, ill-appearing SKIN: Skin color, texture, turgor normal. No rashes or lesions. HEAD/SINUSES: No significant findings EYES: PERRLA, EOMI EARS: External ears normal NOSE: Nares normal. Septum midline. NECK: Supple, no swelling, no tenderness LUNGS: Normal, unlabored breathing CARDIAC: Tachycardia ABDOMEN: Abdomen soft, non-tender, BS normal, No masses or organomegaly EXTREMITIES: No edema, no cyanosis NEURO: AO x 3, no focal motor deficit (more content not included)... Normal [facility] CT ABD/PEL W IVCONon 024 CT ABD/PEL W IVCON * * *Final Report* * * DATE OF EXAM: Jul 16 2024 6:12PM [facility] - [facility] ABD/PEL W IVCON / PROCEDURE REASON: abd pain, distension, recent polypharm overdose, vomiting blood * * * * Physician Interpretation * * * * EXAMINATION: CT ABDOMEN AND PELVIS WITH IV CONTRAST CT ABD/PEL W IVCON CLINICAL HISTORY: abd pain, distension, recent polypharm overdose, vomiting blood TECHNIQUE: CT of the abdomen and pelvis was performed using standard technique, scanning from just above the dome of the diaphragm to the symphysis pubis. MQ: CTAP_3 Contrast: Contrast Media: IV administration of 100 ml of Omnipaque 350 CT Radiation dose: Integrated Dose-length product (DLP) for this visit = mGy*cm. CT Dose Reduction Employed: Automated exposure correction (AEC). COMPARISON: None. RESULT: Liver: No mass. Biliary: No bile duct dilatation. Spleen: No mass. No splenomegaly. Pancreas: No mass or duct dilation. Adrenals: No mass. Kidneys: No enhancing mass, calculus or hydronephrosis. GI tract: No small or large bowel dilatation. No bowel wall thickening. Lymph nodes: No abdominal or pelvic lymphadenopathy. Mesentery/Peritoneum : No ascites or mass. Retroperitoneum: No mass. Vasculature: - Abdominal aorta and iliac arteries: Atherosclerotic calcifications without aneurysm. - Celiac and SMA: Patent without stenosis. - Portal venous system (SMV, splenic vein, portal vein and branches): Patent. - Hepatic veins: Patent. Pelvis: No mass, ascites or fluid collection. Bones/Soft Tissues: Degenerative changes of the lumbar and included thoracic spine, with levoscoliosis. _ Lower thorax: No abnormality in the imaged lower thorax. Catering Service Manager (topogram) images: No additional findings. IMPRESSION: No acute findings in the abdomen or pelvis. Chemical Checker: ROSMERY Transcribe Date/Time: Jul 16 2024 6:44P Dictated by : NAIF SHAIKH MD This examination was interpreted and the report reviewed and electronically signed by: NAIF SHAIKH MD on Jul 16 2024 6:52PM EST [id number] CN Normal [facility] CT BRAIN WO IVCONon 07-16-20 CT BRAIN WO IVCON * * *Final Report* * * DATE OF EXAM: Jul 16 2024 6:12PM [facility] - CT BRAIN WO IVCON / PROCEDURE REASON: Mental status change, unknown cause * * * * Physician Interpretation * * * * EXAMINATION: CT BRAIN WO IVCON CLINICAL HISTORY: Mental status change, unknown cause TECHNIQUE: Serial axial images without IV contrast were obtained from the vertex to the foramen magnum. MQ: CTBWO_3 CT Radiation dose: Integrated Dose-Length Product (DLP) for this visit = mGy*cm CT Dose Reduction Employed: COMPARISON: None. RESULT: Catering Service Manager (topogram) images: No significant findings. Post-operative change: None. Acute change: No evidence of an acute infarct or other acute parenchymal process. Hemorrhage: No evidence of acute intracranial hemorrhage. ECASS hemorrhagic transformation score: Not Applicable Mass Lesion / Mass Effect: There is no evidence of an intracranial mass or extraaxial fluid collection. No significant mass effect. Chronic change: None apparent. Parenchyma: There is no significant volume loss. The brain parenchyma is otherwise within normal limits for age. Ventricles: The ventricles are within normal limits of size and configuration for age. Paranasal sinuses and skull base: The visualized paranasal sinuses are grossly clear. The skull base and imaged soft tissues are unremarkable. IMPRESSION: No acute intracranial process. Chemical Checker: ROSMERY Transcribe Date/Time: Jul 16 2024 6:38P Dictated by : NAIF SHAIKH MD This examination was interpreted and the report reviewed and electronically signed by: NAIF SHAIKH MD on Jul 16 2024 6:40PM EST [id number] CN Normal [facility] Comprehensive metabolic 2000 panelon 07-16-2024 Albumin [Mass/Vol] 2.8 g/dL Low 3.2-5.0 [facility] Comment on above: Order Comment: Balbir howell Type: BLOOD SPECIMENOrdering Facility: [facility] Address: [address] [place] [address] Performed By: #### 5 0190-8, 2276-4, 2132-9, 5643-2, HSTROP, TSHRF, 42751-3, 84756-4, 3298-7 ####[facility] LABORATORYCLIA [id number] [place] [id number] [place] ALP [Catalytic activity/Vol] 101 U/L Normal 45-117 [facility] Comment on above: Order Comment: Balbir howell Type: BLOOD SPECIMENOrdering Facility: [facility] Address: [address] [place] [address] Performed By: #### 5 0190-8, 2276-4, 2132-9, 5643-2, HSTROP, TSHRF, 07863-7, 45050-9, 3298-7 ####[facility] LABORATORYCLIA [id number] [place] [address] [place] ALT [Catalytic activity/Vol] 47 U/L Normal 13-61 [facility] Comment on above: Order Comment: Balbir howell Type: BLOOD SPECIMENOrdering Facility: [facility] Address: [address] [place] [address] Result Comment: Resu lts may be falsely depressed after the administration of Sulfasalazine and/or Sulfapyridine. Performed By: #### 5 0190-8, 2276-4, 2-9, 5643-2, HSTROP, TSHRF, 35657-0, 28530-0, 3297-7 ####[facility] LABORATORYCLIA [id number] [place] [address] [place] Anion gap [Moles/Vol] 15 mmol/L Normal 5-16 [facility] Comment on above: Order Comment: Speci men Type: BLOOD SPECIMENOrdering Facility: [facility] Address: [address] [place] [address] Performed By: #### 5 0190-8, 6-4, 2131-9, 5643-2, HSTROP, TSHRF, 28934-4, 94727-6, 3297-7 ####[facility] LABORATORYCLIA [id number] [place] [id number] [place] AST [Catalytic activity/Vol] 55 U/L High 8-34 [facility] Comment on above: Order Comment: Speci men Type: BLOOD SPECIMENOrdering Facility: [facility] Address: [address] [place] [address] Result Comment: Resu lts may be falsely depressed after the administration of Sulfasalazine and/or Sulfapyridine. Performed By: #### 5 0190-8, 6-4, 2131-9, 5643-2, HSTROP, TSHRF, 05057-2, 77296-0, 329-7 ####[facility] LABORATORYCLIA [id number] [place] [address] [place] Bilirubin [Mass/Vol] 0.7 mg/dL Normal 0.2-1.0 [facility] Comment on above: Order Comment: Speci men Type: BLOOD SPECIMENOrdering Facility: [facility] Address: [address] [place] [address] Performed By: #### 5 0190-8, 2276-4, 213-9, 5643-2, HSTROP, TSHRF, 54116-7, 43095-5, 329-7 ####[facility] LABORATORYCLIA [id number] [place] [address] [place] Calcium [Mass/Vol] 9.7 mg/dL Normal 8.5-10.5 [facility] Comment on above: Order Comment: Speci men Type: BLOOD SPECIMENOrdering Facility: [facility] Address: [address] [place] [address] Performed By: #### 5 0190-8, 2276-4, 2132-9, 5643-2, HSTROP, TSHRF, 25594-1, 23164-5, 329-7 ####[facility] LABORATORYCLIA [id number] [place] [address] [place] Chloride [Moles/Vol] 102 mmol/L Normal 98-107 [facility] Comment on above: Order Comment: Speci men Type: BLOOD SPECIMENOrdering Facility: [facility] Address: [address] [place] [address] Performed By: #### 5 0190-8, 2276-4, 2132-9, 5643-2, HSTROP, TSHRF, 11471-6, 58461-4, 3297-7 ####[facility] LABORATORYCLIA [id number] [place] [address] [place] CO2 [Moles/Vol] 20 mmol/L Low 21-32 [facility] Comment on above: Order Comment: Speci men Type: BLOOD SPECIMENOrdering Facility: [facility] Address: [address] [place] [address] Performed By: #### 5 0190-8, 2276-4, 2132-9, 5643-2, HSTROP, TSHRF, 91336-4, 69757-9, 329-7 ####[facility] LABORATORYCLIA [id number] [place] [address] [place] Creatinine [Mass/Vol] 1.26 mg/dL High 0.51-0.95 [facility] Comment on above: Order Comment: Speci men Type: BLOOD SPECIMENOrdering Facility: [facility] Address: [address] [place] [address] Result Comment: Sarika ents receiving either N-Acetylcysteine (NAC) or Metamizole prior to venipuncture, may have falsely depressed results. Performed By: #### 5 0190-8, 2276-4, 2132-9, 5643-2, HSTROP, TSHRF, 76275-9, 14926-1, 3298-7 ####[facility] LABORATORYCLIA [id number] [place] [address] [place] Creatinine and Glomerular filtration rate.predicted panel (S/P/Bld) 51 mL/min/1.73m??? Low >=60 [facility] Comment on above: Order Comment: Specstarr howell Type: BLOOD SPECIMENOrdering Facility: [facility] Address: [address] [place] [address] Result Comment: Gina mated Glomerular Filtration Rate (eGFR) is calculated using the 2020 CKD-EPI creatinine equation. This equation utilizes serum creatinine, sex, and age as parameters. The creatinine assay has traceable calibration to isotope dilution-mass spectrometry. Refer to KDIGO guidelines for clinical interpretation. In patients with unstable renal function, e.g. those with acute kidney injury, the eGFR may not accurately reflect actual GFR. Performed By: #### 5 0190-8, 2276-4, 2132-9, 5643-2, HSTROP, TSHRF, 84503-4, 06748-1, 3298-7 ####[facility] LABORATORYCLIA [id number] [place] [id number] [place] Glucose [Mass/Vol] 217 mg/dL High 70-100 [facility] Comment on above: Order Comment: Speci men Type: BLOOD SPECIMENOrdering Facility: [facility] Address: [address] [place] [address] Result Comment: The [place] [employer] (ADA) provides guidance for cutoff values for fasting glucose and random glucose. The ADA defines fasting as no caloric intake for at least 8 hours. Fasting plasma glucose results between 100 to 125 mg/dL indicate increased risk for diabetes (prediabetes). Fasting plasma glucose results greater than or equal to 126 mg/dL meet the criteria for diagnosis of diabetes. In the absence of unequivocal hyperglycemia, results should be confirmed by repeat testing. In a patient with classic symptoms of hyperglycemia or hyperglycemic crisis, random plasma glucose results greater than or equal to 200 mg/dL meet the criteria for diagnosis of diabetes. Reference: Standards of Medical Care in Diabetes 2016, [place] [employer]. Diabetes Care. 2016.39(Suppl 1). Results may be falsely elevated after the administration of Sulfapyridine. Results may be falsely depressed after the administration of Sulfasalazine. Performed By: #### 5 0190-8, 2276-4, 2132-9, 5643-2, HSTROP, TSHRF, 07611-0, 95591-3, 3298-7 ####[facility] LABORATORYCLIA [id number] [place] [id number] [place] Protein [Mass/Vol] 6.5 g/dL Normal 6.0-8.5 [facility] Comment on above: Order Comment: Balbir howell Type: BLOOD SPECIMENOrdering Facility: [facility] Address: [address] [place] [address] Performed By: #### 5 0190-8, 2276-4, 2132-9, 5643-2, HSTROP, TSHRF, 49939-0, 71204-7, 3298-7 ####[facility] LABORATORYCLIA [id number] [place] [id number] [place] Sodium [Moles/Vol] 137 mmol/L Normal 136-145 [facility] Comment on above: Order Comment: Balbir howell Type: BLOOD SPECIMENOrdering Facility: [facility] Address: [address] [place], [place] [address] Performed By: #### 5 0190-8, 2276-4, 2132-9, 5643-2, HSTROP, TSHRF, 18900-7, 79221-4, 3298-7 ####[facility] LABORATORYCLIA [id number] [place] [id number] [place] Urea nitrogen [Mass/Vol] 47 mg/dL High - [facility] Comment on above: Order Comment: Speci men Type: BLOOD SPECIMENOrdering Facility: [facility] Address: [address] [place] [address] [place] [address] Performed By: #### 5 0190-8, 2276-4, 2132-9, 5643-2, HSTROP, TSHRF, 41707-3, 29970-6, 3298-7 ####[facility] LABORATORYCLIA [id number] [place] [id number] [facility] ECG COMPLETEon 07-16-2024 ECG COMPLETE Ventricular Rate : 96 BPM Atrial Rate : 96 BPM P-R Interval : 118 ms QRS Duration : 82 ms Q-T Interval : 356 ms QTC Calculation(Bazett) : 449 ms Calculated P [place] : 68 degrees Calculated R [place] : 64 degrees Calculated T [place] : -63 degrees Normal sinus rhythm Inferior infarct , age undetermined T wave abnormality, consider lateral ischemia Abnormal ECG No previous ECGs available Confirmed by COOKIE SHEPHERD MD ([id number]) on 07/17/2024 12:22:38 PM NAME : HOLDEN CHILDERS PID : [id number] : 1970 Gender : Female Race : ORD : [id number] Procedure Date : Jul 16 2024 17:11:06 Edit Date : Jul 17 2024 12:22:40 Diagnosis: Normal sinus rhythm Inferior infarct , age undetermined T wave abnormality, consider lateral ischemia Abnormal ECG No previous ECGs available Confirmed by COOKIE SHEPHERD MD ([id number]) on 07/17/2024 12:22:38 PM Test Reason : HCS Location : 0 : ED EDH11 Overread By : COOKIE SHEPHERD MD Edited By : COOKIE SHEPHERD MD Referred By : , Acquired by : [id number], Normal [facility] ED PROV NOTEon 07-16-2024 ED PROV NOTE HNO ID: [id number] Author: MIO MEADOWS MD Service: Emergency Medicine Author Type: Physician Type: ED Provider Notes Filed: 07/16/2024 23:36 Note Text: ED Provider Note Patient Name: Holden Childers : 1970 SERVICE DATE: 07/16/24 History Patient presents with: Nausea AND Vomiting: PT having abd pain started day also n/v. Per [place] [facility] stool pt does have dark emesis. 54-year-old female with history of hysterectomy, hypertension, fibromyalgia, endometriosis. She presents as a transfer from [facility]. She apparently was just taken there today. She was in the ICU at [facility] for overdose. She states that she took Lyrica, unclear what else she may have taken. She presents with coffee-ground emesis, she reports 3 episodes, she reports abdominal distention and pain. She appears to be confused. She is a very hard time telling me what sort of ongoing medical problems she may have, she is unable to tell me what exactly she overdosed on, she can even tell me what hospital she was at before here. History is obtained from medical record review. Unfortunately [facility] did not send any paperwork from the hospital facility that she was at prior to being sent there to us today. History provided by: Patient and medical records History limited by: Mental status change PAST MEDICAL HISTORY Diagnosis Date Abnormal Pap smear 09/2008 LGSIL and Positive HPV Abnormal Pap smear 04/2009 HGSIL Encounter for insertion or removal of intrauterine contraceptive device 12/13/2008 Mirena Endometriosis Fibromyalgia 08/14/2012 Hypertension Palpitations S/P SHREE (total abdominal hysterectomy) 05/15/2010 PAST SURGICAL HISTORY Procedure Laterality Date APPENDECTOMY CONIZATION CERVIX W/WO DANDC RPR ELTRD EXC 06/21/2009 (LEEP) INSERT INTRAUTERINE DEVICE 12/13/2008 Mirena IUD REMOVAL 03/22/2010 LAPS ABD PRTMANDOMENTUM DX W/WO SPEC BR/WA SPX Laparoscopy TONSILLECTOMY PRIMARY/SECONDARY Tonsillectomy TOTAL ABDOMINAL HYSTERECT W/WO RMVL TUBE OVARY 05/15/2010 Dr. Dodd; Dysplasia, Metrorrhagia, Dysmenorrhea TRANSV CAROTID STENT PLACEMT 10/25/2023 [place] VAGINOSCOPY 02/01/2010 FAMILY HISTORY Problem Relation Age of Onset Hypertension Mother Coronary Artery Disease Maternal Grandfather Coronary Artery Disease Paternal Grandfather Social History Tobacco Use Smoking status: Former Current packs/day: 0.00 Average packs/day: 0.8 packs/day for 27.0 years (20.3 ttl pk-yrs) Types: Cigarettes Start date: 10/24/1996 Quit date: 10/25/2023 Years since quittin.7 Smokeless tobacco: Never Tobacco comments: Started smoking age 26 Vaping Use Vaping status: Some Days Substances: Nicotine, Flavoring Substance and Sexual Activity Alcohol use: No Drug use: No Sexual activity: Yes Partners: Male control/protection: Surgical Comment: Hysterectomy ALLERGIES Allergen Reactions Codeine Vomiting Review of Systems Physical Exam Vitals BP Pulse Temp Temp src Resp SpO2 Weight Height 07/16/24 1622 07/16/24 1622 07/16/24 1622 07/16/24 1622 07/16/24 1622 07/16/24 1622 07/16/24 1632 -- 93/54 (!) 107 36.2 ?C (97.2 ?F) Oral 20 95 % 59 kg (130 lb) Physical Exam Vitals and nursing note reviewed. Constitutional: General: She is not in acute distress. Appearance: She is ill-appearing. She is not toxic-appearing or diaphoretic. HENT: Head: Normocephalic. Eyes: Extraocular Movements: Extraocular movements intact. Cardiovascular: Rate and Rhythm: Regular rhythm. Tachycardia present. Heart sounds: Normal heart sounds. Pulmonary: Effort: Pulmonary effort is normal. Breath sounds: Normal breath sounds. Abdominal: General: Abdomen is flat. There is no distension. Palpations: Abdomen is soft. Tenderness: There is abdominal tenderness in the right upper quadrant and epigastric area. There is no guarding. Skin: General: Skin is warm and dry. Coloration: Skin is pale. Neurological: General: No focal deficit present. Mental Status: She is alert. Cranial Nerves: No cranial nerve deficit. Motor: No weakness. Severe Sepsis Identified Date: 07/16/24 Severe Sepsis Identified Time: 1703 Severe Sepsis Identified Date: 07/16/24 Severe Sepsis Identified Time: 1703 Diagnostic Testing ED Labs Ordered and Reviewed COMPREHENSIVE METABOLIC PANEL - Abnormal; Notable for the following components: Result Value Ref Range Albumin 2.8 (*) 3.2 - 5.0 g/dL AST 55 (*) 8 - 34 U/L Glucose 217 (*) 70 - 100 mg/dL BUN 47 (*) 7 - 26 mg/dL Creatinine 1.26 (*) 0.51 - 0.95 mg/dL CO2 20 (*) 21 - 32 mmol/L Estimated Glomerular Filtration Rate 51 (*) >=60 mL/min/1.73m? All other components within normal limits COMPLETE BLOOD COUNT AND DIFFERENTIAL - Abnormal; Notable for the following components: WBC 18.51 (*) 3.70 - 11.00 k/uL RBC 2.93 (*) 3.90 - 5.20 m/uL Hemoglobin 9.2 (*) 11.5 - 15.5 g/dL Hematocr (more content not included)... Normal [facility] Ethanol SerPl-ncon 024 Ethanol [Mass/Vol] mg/dL Normal <0.010 [facility] Comment on above: Order Comment: Speci men Type: BLOOD SPECIMENOrdering Facility: [facility] Address: [address] [place] [address] Performed By: #### 5 0190-8, 2276-4, 2-9, 5643-2, HSTROP, TSHRF, 35783-2, 24447-2, 3298-7 ####[facility] LABORATORYCLIA [id number] [place] [address] [place] Ferritin SerPl-[facility] 2023 Ferritin [Mass/Vol] 391.1 ng/mL High 8.0-307.0 [facility] Comment on above: Order Comment: Speci men Type: BLOOD SPECIMENOrdering Facility: [facility] Address: [address] [place] [address] Performed By: #### 5 0190-8, 2276-4, 2-9, 5643-2, HSTROP, TSHRF, 73548-1, 47195-6, 3298-7 ####[facility] LABORATORYCLIA [id number] [place] [address] [place] [facility] Fibrinogen Coag (PPP) [Mass/Vol] 538 mg/dL High 200-400 [facility] Comment on above: Order Comment: Speci men Type: BLOOD SPECIMENOrdering Facility: [facility] Address: [address] [place] [address] Result Comment: Resu lt rechecked. Sample checked for clot. Performed By: #### 3 255-7 ####[facility] LABORATORYCLIA [id number] [place] [address] [place] Folate SerPl-mCncon 07-16-20 24 Folate [Mass/Vol] 19.7 ng/mL Normal >3.0 [facility] Comment on above: Order Comment: Speci men Type: BLOOD SPECIMENOrdering Facility: [facility] Address: [address] [place] [address] Performed By: #### 6 30-4 #### [facility] CLIA [id number] OF [facility] Gas + CO Pnl BldVon 07-16-20 24 Potassium [Moles/Vol] 4.6 mmol/L Normal 3.5-5.1 [facility] Comment on above: Order Comment: Speci men Type: VENOUS BLOOD SPECIMENOrdering Facility: [facility] Address: [address] [place] [address] Performed By: #### 2 4344-4 ####[facility] RESPIRATORY THERAPYCLIA [id number] [address] Order Comment: Speci men Type: BLOOD SPECIMENOrdering Facility: [facility] Address: [address] [place] [address] Performed By: #### 5 0190-8, 2276-4, 2132-9, 5643-2, HSTROP, TSHRF, 78049-7, 46140-2, 3298-7 ####[facility] LABORATORYCLIA [id number] [address] [place] Gas and Carbon monoxide pane l (BldV)on 07-16-2024 BASE DEFICIT, VENOUS -9 mmol/L Low -2-0 [facility] Comment on above: Order Comment: Speci men Type: VENOUS BLOOD SPECIMENOrdering Facility: [facility] Address: [address] [place] [address] Performed By: #### 2 4344-4 ####[facility] RESPIRATORY THERAPYCLIA [id number] [address] OF [facility] Body temperature 97.16 [degF] Normal [facility] Comment on above: Order Comment: Speci men Type: VENOUS BLOOD SPECIMENOrdering Facility: [facility] Address: [address] [place] [address] Performed By: #### 2 4344-4 ####[facility] THERAPYCLIA [id number] [place] [address] [place] Calcium.ionized (Bld) [Mass/Vol] 1.16 mmol/L Normal 1.08-1.30 [facility] Comment on above: Order Comment: Speci men Type: VENOUS BLOOD SPECIMENOrdering Facility: [facility] Address: [address] [place] [address] Performed By: #### 2 4344-4 ####[facility] THERAPYCLIA [id number] [address] [place] Carboxyhemoglobin (BldV) [Mass fraction] 0.1 % Normal 0.0-2.0 [facility] Comment on above: Order Comment: Speci men Type: VENOUS BLOOD SPECIMENOrdering Facility: [facility] Address: [address] [place] [address] Result Comment: Carb oxyhemoglobin Reference Range for Smokers: 2.0-8.0% Performed By: #### 2 4344-4 ####[facility] THERAPYCLIA [id number] [address] [place] CO2 (BldV) [Partial pressure] 35 mm[Hg] Low 42-55 [facility] Comment on above: Order Comment: Speci men Type: VENOUS BLOOD SPECIMENOrdering Facility: [facility] Address: [address] [place] [address] Performed By: #### 2 4344-4 ####[facility] THERAPYCLIA [id number] [address] [place] CO2 adjusted to patient's actual temperature (BldV) [Partial pressure] Normal [facility] Comment on above: Order Comment: Speci men Type: VENOUS BLOOD SPECIMENOrdering Facility: [facility] Address: [address] [place] [address] Performed By: #### 2 4344-4 ####[facility] THERAPYCLIA [id number] [place] [id number] [place] Glucose [Mass/Vol] 210 mg/dL High 60-105 [facility] Comment on above: Order Comment: Speci men Type: VENOUS BLOOD SPECIMENOrdering Facility: [facility] Address: [address] [place] [address] Performed By: #### 2 4344-4 ####[facility] RESPIRAT[facility] THERAPYCLIA [id number] [place] [address] [place] HCO3 (Bld) [Moles/Vol] 17 mmol/L Low 24-28 [facility] Comment on above: Order Comment: Speci men Type: VENOUS BLOOD SPECIMENOrdering Facility: [facility] Address: [address] [place] [address] Performed By: #### 2 4344-4 ####[facility] RESPIRATORY THERAPYCLIA [id number] [place] [address] [place] Hemoglobin (Bld) [Mass/Vol] 9.4 g/dL Low 11.5-15.5 [facility] Comment on above: Order Comment: Speci men Type: VENOUS BLOOD SPECIMENOrdering Facility: [facility] Address: [address] [place] [address] Performed By: #### 2 4344-4 ####[facility] RESPIRATORY THERAPYCLIA [id number] [place] [address] [place] Lactate [Moles/Vol] 6.3 mmol/L High 0.5-2.2 [facility] Comment on above: Order Comment: Speci men Type: VENOUS BLOOD SPECIMENOrdering Facility: [facility] Address: [address] [place] [address] Performed By: #### 2 4344-4 ####[facility] RESPIRATORY THERAPYCLIA [id number] [address] [place] Methemoglobin (Bld) [Mass fraction] 0.5 % Normal 0.0-1.5 [facility] Comment on above: Order Comment: Speci men Type: VENOUS BLOOD SPECIMENOrdering Facility: [facility] Address: [address] [place] [address] Performed By: #### 2 4344-4 ####[facility] THERAPYCLIA [id number] [place] [id number] [place] O2 THERAPY RA=Room Air Normal [facility] Comment on above: Order Comment: Speci men Type: VENOUS BLOOD SPECIMENOrdering Facility: [facility] Address: [address] [place] [address] Performed By: #### 2 4344-4 ####[facility] RESP[facility]AT[facility] THERAPYCLIA [id number] [address] [place] Oxygen (BldV) [Partial pressure] mm[Hg] Low 35-45 [facility] Comment on above: Order Comment: Speci men Type: VENOUS BLOOD SPECIMENOrdering Facility: [facility] Address: [address] [place] [address] Performed By: #### 2 4344-4 ####[facility] RESPIRATORY THERAPYCLIA [id number] [address] [place] Oxygen adjusted to patient's actual temperature (BldV) [Partial pressure] Normal [facility] Comment on above: Order Comment: Speci men Type: VENOUS BLOOD SPECIMENOrdering Facility: [facility] Address: [address] [place] [address] Performed By: #### 2 4344-4 ####[facility] RESPIRATORY THERAPYCLIA [id number] [place] [id number] [place] Oxyhemoglobin (BldV) [Mass fraction] 27 % Normal 4-98 [facility] Comment on above: Order Comment: Speci men Type: VENOUS BLOOD SPECIMENOrdering Facility: [facility] Address: [address] [place] [address] Performed By: #### 2 4344-4 ####[facility] RESPIRATORY THERAPYCLIA [id number] [place] [id number] [place] pH (BldV) 7.30 [pH] Low 7.32-7.42 [facility] Comment on above: Order Comment: Speci men Type: VENOUS BLOOD SPECIMENOrdering Facility: [facility] Address: [address] [place] [address] Performed By: #### 2 4344-4 ####[facility] RESPIRATORY THERAPYCLIA [id number] [place] [id number] [place] pH adjusted to patient's actual temperature (BldV) Normal [facility] Comment on above: Order Comment: Speci men Type: VENOUS BLOOD SPECIMENOrdering Facility: [facility] Address: [address] [place] [address] Performed By: #### 2 4344-4 ####[facility] RESPIRATORY THERAPYCLIA [id number] [place] [id number] [place] Sodium [Moles/Vol] 138 mmol/L Normal 136-144 [facility] Comment on above: Order Comment: Speci men Type: VENOUS BLOOD SPECIMENOrdering Facility: [facility] Address: [address] [place] [address] Performed By: #### 2 4344-4 ####[facility] RESPIRATORY THERAPYCLIA [id number] [address] [place] HIGH SENSITIVITY TROPONIN Io n 07-16-2024 Tropinin I.cardiac panel High sensitivity method 19.1 pg/mL Normal 0.0-34.0 [facility] Comment on above: Order Comment: Speci men Type: BLOOD SPECIMENOrdering Facility: [facility] Address: [address] [place] [address] Performed By: #### 5 0190-8, 2276-4, 2132-9, 5643-2, HSTROP, TSHRF, 63487-9, 91747-0, 3298-7 ####[facility] LABORATORYCLIA [id number] [place] [id number] [place] HISTORY PHYSICALon HISTORY PHYSICAL HNO ID: [id number] Author: MANDO THOMAS APRN.DIRECTOR PRODUCT Service: Critical Care Author Type: Nurse Practitioner Type: H&P Filed: 07/16/2024 21:40 Note Text: [facility] SERVICE DATE: July 16, 2024 SERVICE TIME: 8:36 PM HPI: This is a 54yo female with a PMH significant for [place] s/p RCA stent in October 2023 (on ASA, Brilinta, metoprolol), fibromyalgia (Lyrica), HTN, anxiety, endometriosis s/p hysterectomy. Patient was recently hospitalized 07/13/2024 at [facility] for intentional overdose of Lyrica. Patient was discharged today and pink slipped to [facility]. Upon arrival to [facility], patient had 3 episodes of hematemesis that was a mix of coffee-ground and clots. Patient was transferred from [facility] to [facility] ED where she complained of abdominal pain, nausea. Initially she was confused and was not able to provide much HPI however, as time went on her mentation improved. A CT scan of the abdomen and pelvis with IV contrast was completed given abdominal pain and hematemesis; no acute findings in the abdomen or pelvis were noted. A CT brain was obtained given her disorientation; this too was negative. Chest x-ray showing mild hazy interstitial and airspace opacity in the left perihilar location suggesting pneumonitis. A CMP was obtained and significant for CO2 20, BUN 47, creatinine 1.26, glucose 217. Ammonia negative. EtOH and acetaminophen levels negative. Pro-Som negative. Troponin negative. Lactate 6.7. VBG showing metabolic acidosis at 7.3/35/<30/17. TSH 0.39. Leukocytosis with a left shift noted on CBC. HANDH 9.2/26.9. Coags normal. Patient receiving 2 L IV fluid. Given 1 dose of Zosyn. 40 mg pantoprazole IV. 2 units PRBCs started. GI consulted; recommend transfusion of PRBCs as well as platelets. BP stable. Patient is tachycardic into the 120s. Oxygenating appropriately on room air. ICU consulted given high risk for decompensation secondary to hemorrhagic shock. On exam, patient is awake in bed. She is alert and oriented x 3. She does appear mildly anxious and is concerned about when she will be able to have a drink. She confirms HPI as described above. She does report recent history of black tarry stools but is unsure of when her last bowel movement was. She complains of headache, abdominal pain, nausea, palpitations, shortness of breath. Denies vision changes, paresthesias, chest pain, calf pain/swelling, dysuria/frequency. We discussed the anticipated clinical course and need for admission to ICU. We discussed her previous suicide attempt, she is not currently having any SI/HI. A sitter is present at the bedside and a capacity hold was placed given that she was pink slipped to [place] [place]. PAST MEDICAL HISTORY: SEE CHRONIC ISSSUES: PAST MEDICAL HISTORY Diagnosis Date Abnormal Pap smear 09/2008 LGSIL and Positive HPV Abnormal Pap smear 04/2009 HGSIL Encounter for insertion or removal of intrauterine contraceptive device 12/13/2008 Mirena Endometriosis Fibromyalgia 08/14/2012 Hypertension Palpitations S/P SHREE (total abdominal hysterectomy) 05/15/2010 PAST SURGICAL HISTORY Procedure Laterality Date APPENDECTOMY CONIZATION CERVIX W/WO DANDC RPR ELTRD EXC 06/21/2009 (LEEP) INSERT INTRAUTERINE DEVICE 12/13/2008 Mirena IUD REMOVAL 03/22/2010 LAPS ABD PRTMANDOMENTUM DX W/WO SPEC BR/WA SPX Laparoscopy TONSILLECTOMY PRIMARY/SECONDARY Tonsillectomy TOTAL ABDOMINAL HYSTERECT W/WO RMVL TUBE OVARY 05/15/2010 Dr. Dodd; Dysplasia, Metrorrhagia, Dysmenorrhea TRANSV CAROTID STENT PLACEMT 10/25/2023 [place] VAGINOSCOPY 02/01/2010 FAMILY HISTORY Problem Relation Age of Onset Hypertension Mother Coronary Artery Disease Maternal Grandfather Coronary Artery Disease Paternal Grandfather Social History Tobacco Use Smoking status: Former Current packs/day: 0.00 Average packs/day: 0.8 packs/day for 27.0 years (20.3 ttl pk-yrs) Types: Cigarettes Start date: 10/24/1996 Quit date: 10/25/2023 Years since quittin.7 Smokeless tobacco: Never Tobacco comments: Started smoking age 26 Vaping Use Vaping status: Some Days Substances: Nicotine, Flavoring Substance Use Topics Alcohol use: No Drug use: No HOME MEDICATIONS: cholecalciferol (VITAMIN D-3) 5,000 unit tabTake 5,000 Units by mouth once daily.Disp: Rfl: DULoxetine (CYMBALTA) 30 mg capsuleTake 1 capsule by mouth once daily.Disp: 90 capsuleRfl: 0 acyclovir (ZOVIRAX) 400 mg tabletTAKE 1 TABLET BY MOUTH TWICE A DAY NEEDED FOR COLD SORESDisp: Rfl: azelastine 0.1% nasal sprayUse 1 [place] in each nostril two times a day.Disp: Rfl: cyanocobalamin (VITAMIN B-12) 500 mcg tabletTake by mouth.Disp: Rfl: VOLTAREN ARTHRITIS PAIN 1 % topical gelDisp: Rfl: sodium fluoride (PREVIDENT 5000 PLUS) 1.1 % dental creamUSE AT BEDTIMEDisp: Rfl: ketoconazole (NIZORAL) 2 % creamAPPLY TOPICALLY TO THE AFFECTED AREA DAILYDisp: Rfl: (more content not included)... Normal [facility] HbA1c (Bld)on 07-16-2024 Average glucose Estimated from glycated hemoglobin (Bld) [Mass/Vol] 94 mg/dL Normal [facility] Comment on above: Order Comment: Balbir howell Type: BLOOD SPECIMENOrdering Facility: [facility] Address: [address] [place] [address] Result Comment: eAG: (Estimated average glucose) is a calculated value from HgbA1c and is access service representative of the average blood glucose level in the last 2-3 month period. Performed By: #### 5 5454-3 ####[facility] LABCLIA [id number] [address]#### [address]-7 ####[facility] LABORATORYCLIA [id number] [address] STATES OF [facility] HbA1c (Bld) [Mass fraction] 4.9 % Normal 4.3-5.6 [facility] Comment on above: Order Comment: Balbir howell Type: BLOOD SPECIMENOrdering Facility: [facility] Address: [address] [place] [address] Result Comment: Amer [place] Diabetes Association guidelines indicate that patients with HgbA1c in the range 5.7-6.4% are at increased risk for development of diabetes, and intervention by lifestyle modification may be beneficial. HgbA1c greater or equal to 6.5% is considered diagnostic of diabetes. Performed By: #### 5 5454-3 ####[facility] LABCLIA [id number] [address] [place]#### [address]-7 ####[facility] LABORATORYCLIA [id number] [address] [place] Hgb Bld-mCncon 07-16-2024 Hemoglobin (Bld) [Mass/Vol] 5.9 g/dL Critically low 11.5-15.5 [facility] Comment on above: Order Comment: Speci men Type: BLOOD SPECIMENOrdering Facility: [facility] Address: [address] [place] [address] Result Comment: No c lot detected. Performed By: #### 7 18-7 ####[facility] LABORATORYCLIA [id number] [address] [place] Iron and Iron binding capaci ty panelon 07-16-2024 Iron [Mass/Vol] 88 ug/dL Normal 50-170 [facility] Comment on above: Order Comment: Speci men Type: BLOOD SPECIMENOrdering Facility: [facility] Address: [address] [place] [address] Result Comment: Sarika ents treated with metal-binding drugs (e.g.deferoxamine) may have depressed iron values, as chelated iron may not properly react in the Siemens iron assay. Performed By: #### 6 30-4 #### [facility] CLIA [id number] [address] [place] [address] [place] Iron binding capacity [Mass/Vol] 235 ug/dL Normal 221-481 [facility] Comment on above: Order Comment: Speci men Type: BLOOD SPECIMENOrdering Facility: [facility] Address: [address] [place] [address] Performed By: #### 6 30-4 #### [facility] CLIA [id number] [address] [place] [address] STATES [facility] Iron/TIBC [Molar ratio] 37.4 % Normal 22.0-44.0 M [facility] Comment on above: Order Comment: Speci men Type: BLOOD SPECIMENOrdering Facility: [facility] Address: [address] [place] [address] Performed By: #### 6 30-4 #### [facility] CLIA [id number] [address] [place] [id number] [place] Magnesium SerPl-mCncon 07-16 Magnesium [Mass/Vol] 2.0 mg/dL Normal 1.6-2.6 [facility] Comment on above: Order Comment: Balbir howell Type: BLOOD SPECIMENOrdering Facility: [facility] Address: [address] [facility] [place] [id number] Performed By: #### 5 0190-8, 2276-4, 2132-9, 5643-2, HSTROP, TSHRF, 63119-3, 74909-8, 3298-7 ####[facility] LABORATORYCLIA [id number] [place] [id number] [place] PT panel Coag (PPP)on 2023 INR Coag (PPP) [Relative time] 1.1 {INR} Normal 0.9-1.3 [facility] Comment on above: Order Comment: Balbir howell Type: BLOOD SPECIMENOrdering Facility: [facility] Address: [address] [place] [id number] Result Comment: Aliya min K Antagonist (VKA) Therapeutic Range: INR 2 to 3 (Target INR of 2.5) Note: For patients treated with VKA drugs, such as warfarin, the [employer] [employer] 2012 Guideline recommends a therapeutic INR range of 2 to 3 (target INR of 2.5). This recommendation includes high-risk patients with antiphospholipid syndrome with previous arterial or venous thromboembolism, current-generation mechanical or bioprosthetic aortic heart valve replacement. Note: Patients with mechanical aortic valve replacement and additional risk factors for thromboembolic events (atrial fibrillation, previous thromboembolism, LV dysfunction, hypercoagulable conditions) or an older generation mechanical AVR (i.e., ball in-Cage) or any mechanical MVR should have a INR therapeutic range of 2.5 to 3.5 (target INR of 3). Sigifredo SINGH, et al. Chest 2012, 141:7S-47S Jakub RA, et al. JACC 2017, 70: 252-289 Performed By: #### 1 4979-9, 71518-2 ####[facility] LABORATORYCLIA [id number] [place] [id number] [facility] [place] PT Coag (PPP) [Time] 12.2 s Normal 9.7-13.0 [facility] Comment on above: Order Comment: Speci men Type: BLOOD SPECIMENOrdering Facility: [facility] Address: [address] [place] [address] Performed By: #### 1 4979-9, 92017-6 ####[facility] LABORATORYCLIA [id number] [place] [id number] [facility] Procalcitonin SerPl-mCncon 1 09-15-2023 Procalcitonin [Mass/Vol] 0.37 ng/mL Normal 0.00-0.50 [facility] Comment on above: Order Comment: Speci [facility] Type: BLOOD SPECIMENOrdering Facility: [facility] Address: [address] [place] [address] Result Comment: PCT Concentration Interpretation PCT <=0.1 ng/mL: Normal range for healthy adults PCT >0.1 ng/mL and <0.5 ng/mL: Systemic infection (sepsis) is possible and may require antibiotic treatment, but other conditions are known to elevate PCT as well. PCT >0.5 ng/mL: Should be considered at risk for developing severe sepsis or septic shock. PCT >2.0 ng/mL: Important systemic inflammatory response. Almost exclusively indicates episode of severe bacterial sepsis or septic shock. Performed By: #### 6 30-4 #### [facility] CLIA [id number] [address] SEPSIS LACTATE W/ REFLEX (IN ITIAL)on 07-16-2024 Lactate [Moles/Vol] 6.7 mmol/L High 0.4-2.0 [facility] Comment on above: Order Comment: Speci men Type: BLOOD SPECIMENOrdering Facility: [facility] Address: [address] [place] [address] Result Comment: CRIT ICAL Performed By: #### S LACTR ####[facility] LABORATORYCLIA [id number] [place] [address] [place] SEPSIS LACTATE W/ REFLEX (SE COND)on 07-16-2024 Lactate [Moles/Vol] 2.3 mmol/L High 0.4-2.0 [facility] Comment on above: Order Comment: Speci men Type: BLOOD SPECIMENOrdering Facility: [facility] Address: [address] [place] [address] Result Comment: CRIT ICAL Performed By: #### S LACT2 ####[facility] LABORATORYCLIA [id number] [place] [address] [facility] [place] STAPHYLOCOCCUS AUREUS AND MR SA SCREEN, PCR, NASALon 07-16-2024 S. aureus and MRSA panel ASHANTI+probe (Nose) Not detected Normal Not Detected [facility] Comment on above: Order Comment: Speci men Type: SWABOrdering Facility: [facility] Address: [address] [place] [address] Performed By: #### S APCR ####[facility] LABORATORYCLIA [id number] [place] [address] [place] Salicylates SerPl-mCncon Salicylates [Mass/Vol] mg/dL Normal 2.8-20.0 [facility] Comment on above: Order Comment: Speci men Type: BLOOD SPECIMENOrdering Facility: [facility] Address: [address] [place] [address] Result Comment: Refe rence ranges and high/low indicator flags are provided as general guidelines only. The treating physician must determine appropriate target levels/dosing based on the specific clinical situation. Performed By: #### 6 30-4 #### [facility] CLIA [id number] [address] [place] [address] [place] TSH W/REFLEX FT4on 4 TSH Qn 0.387 m[IU]/L Normal 0.358-3.740 [facility] Comment on above: Order Comment: Speci men Type: BLOOD SPECIMENOrdering Facility: [facility] Address: [address], [place] [address] Result Comment: 3rd generation ultra sensitive TSH. Performed By: #### 5 0190-8, 2276-4, 2-9, 5643-2, HSTROP, TSHRF, 91422-5, 12293-2, 3298-7 ####[facility] LABORATORYCLIA [id number] [place] [address] [place] TYPE + SCREENon 07-16-2024 ABO A Normal [facility] Comment on above: Order Comment: Speci men Type: BLOOD SPECIMENOrdering Facility: [facility] Address: [address] [place] [address] Performed By: #### L [id number], TSCR ####[facility] BLOOD BANKCLIA [id number] [place] [address] [place] Rh Nom (Bld) Positive Normal [facility] Comment on above: Order Comment: Speci men Type: BLOOD SPECIMENOrdering Facility: [facility] Address: [address] [place] [address] Performed By: #### L [id number], TSCR ####[facility] BLOOD BANKCLIA [id number] [place] [address] [place] TYPE AND SCREEN EXPIRATION 07/19/2024 23:59 Normal [facility] Comment on above: Order Comment: Speci men Type: BLOOD SPECIMENOrdering Facility: [facility] Address: [address] [place] [address] Performed By: #### L [id number], TSCR ####[facility] BLOOD BANKCLIA [id number] [place] [address] [place] Vit B12 SerPl-mCncon 024 Cobalamin (Vitamin B12) [Mass/Vol] 3353 pg/mL High 193-986 [facility] Comment on above: Order Comment: Speci men Type: BLOOD SPECIMENOrdering Facility: [facility] Address: [address] [place] [id number] Performed By: #### 5 0190-8, 6-4, 2131-9, 5643-2, HSTROP, TSHRF, 18222-0, 70263-7, 3298-7 ####[facility] LABORATORYCLIA [id number] [place] [address] [place] XR CHEST 1V FRONTAL PORTon 1 09-15-2023 XR CHEST 1V FRONTAL PORT * * *Final Report* * * DATE OF EXAM: Jul 16 2024 11:48PM [id number] [id number] - XR CHEST 1V FRONTAL PORT / PROCEDURE REASON: Evaluate tube, line, or lead position * * * * Physician Interpretation * * * * EXAMINATION: XR CHEST 1V FRONTAL PORT HISTORY: Evaluate tube, line, or lead position COMPARISON: 07.16.24 FINDINGS: Lungs: Groundglass opacifications in the bilateral upper lobes may represent developing pneumonia Mediastinum: Unremarkable Pleura: No pleural effusion or pneumothorax Other: Right IJ central venous catheter tip terminates in the SVC IMPRESSION: Satisfactory central venous catheter position. Chemical Checker: ROSMERY Transcribe Date/Time: Jul 16 2024 11:49P Dictated by : BOUCHRA MOREIRA MD This examination was interpreted and the report reviewed and electronically signed by: BOUCHRA MOREIRA MD on Jul 16 2024 11:51PM EST [id number] CN Normal [facility] XR CHEST 1V FRONTAL PORT * * *Final Report* * * DATE OF EXAM: Jul 16 2024 5:32PM RHX 5376 - XR CHEST 1V FRONTAL PORT / PROCEDURE REASON: Fatigue and malaise * * * * Physician Interpretation * * * * EXAMINATION: CHEST RADIOGRAPH (PORTABLE SINGLE VIEW AP) Exam Date/Time: 07/16/2024 5:32 PM CLINICAL HISTORY: Fatigue and malaise MQ: XCPR_5 Comparison: 02/10/2024 RESULT: Lines, tubes, and devices: None. Lungs and pleura: Faint hazy interstitial and airspace opacity at the left parahilar location suggesting pneumonitis. No pleural effusions. No evidence of pneumothorax. Cardiomediastinal silhouette: Stable cardiomediastinal silhouette. Other: Visualized portions of the bony thorax appear intact. IMPRESSION: Mild hazy interstitial and airspace opacity in the left parahilar location suggesting pneumonitis. Chemical Checker: ROSMERY Transcribe Date/Time: Jul 16 2024 6:15P Dictated by : THU NIEVES MD This examination was interpreted and the report reviewed and electronically signed by: THU NIEVES MD on Jul 16 2024 6:16PM EST [id number] CN Normal [facility] aPTT PPPon 07-16-2024 aPTT Coag (PPP) [Time] 25.6 s Normal 23.0-32.4 [facility] Comment on above: Order Comment: Speci men Type: BLOOD SPECIMENOrdering Facility: [facility] Address: [address] [place] [address] [place] [id number] Performed By: #### 1 4979-9, 37252-8 ####[facility] LABORATORYCLIA [id number] [place] [address] [facility] Discharge Instructionon 06-26 Discharge Instruction [facility] Medical Records Department [address] [place] [address] Instructions for Home/Discharge Instructions 07/15/24 1541 MR#: [id number] Acct: [id number] Name: HOLDEN CHILDERS Rep #: [id number] : 1970 54 From: Hernán Javier DO PCP: Dr. Bonifacio Bell MD Status:ADM IN Discharge Instructions Diet Discharge Diet: No restrictions Follow Up Care Test Results: Test results from this visit will be discussed in further detail at your follow-up appointment, if applicable. Discharge Plan Admission Admit Date/Time: 07/13/24 10:45 Primary Reason for Your Visit: intentional overdose. Attending Provider: Hernán Javier Primary Care Provider: Bonifacio Bell Discharge Orders/Prescriptions Prescriptions: Continued atorvastatin [Lipitor] 40 mg tablet 40 mg PO QDAY Patient Comments: Not sure if she is taking this or not aspirin [Adult Aspirin Regimen] 81 mg tablet,delayed release (DR/EC) 81 mg PO QDAY Brilinta 90 mg tablet 90 mg PO BID fluticasone propionate [Flonase Allergy Relief] 50 mcg/actuation spray,suspension 1 spray intranasal QDAY Rx Instructions: administer into each nostril albuterol sulfate 90 mcg/actuation HFA aerosol inhaler 2 puff inhalation Q6H PRN (Reason: shortness of breath or wheezing) Patient Comments: Has not needed for awhile lysine 1,000 mg tablet 1,000 mg PO QDAY cholecalciferol (vitamin D3) 25 mcg (1,000 unit) capsule 25 mcg PO QDAY biotin 5 mg capsule 5 mg PO QDAY magnesium 200 mg tablet 400 mg PO BID metoprolol succinate 25 mg tablet extended release 24 hr 25 mg PO BID Discontinued cyclobenzaprine 5 mg tablet 5 mg PO QHS acyclovir 400 mg tablet 400 mg PO QDAY PRN (Reason: cold sores) Patient Comments: Has not needed for awhile duloxetine 30 mg capsule,delayed release(DR/EC) 30 mg PO BID 90 Days Qty: 180 1RF pregabalin 50 mg capsule 50 mg PO TID Patient Comments: Has not taken for a long time- but took last night 07/12/24 Referrals / Follow Up: Bonifacio Bell MD [Primary Care Provider] - Within 2 Weeks Disposition Disposition (needs filled in before D/C Order can be placed): [facility] 07/15/24 3563 Hernán Javier DO CC: Dr. Bonifacio Bell MD Signed [facility] CBC W/Diff, Automatedon 11- 0-2023 Absolute Lymph 1.15 X10 3/uL Normal 0.83-4.51 [facility] Comment on above: Performed By: #### L 100.0100, L501.5200, L500.4050 ####[facility] [address] [place], [address] Absolute Neut 8.3 X10 3/uL High 2.0-7.7 [facility] Comment on above: Performed By: #### L 100.0100, L501.5200, L500.4050 ####[facility] [address] [place], [address] Basophils/100 WBC (Bld) 0.5 % Normal 0-1 [facility] Comment on above: Performed By: #### L 100.0100, L501.5200, L500.4050 ####[facility] [address] [place], [address] Eosinophils/100 WBC (Bld) 2.2 % Normal 0-5 [facility] Comment on above: Performed By: #### L 100.0100, L501.5200, L500.4050 ####[facility] [address] [place], [address] Erythrocyte distribution width (RBC) [Ratio] 12.5 % Normal 11.6-14.6 [facility] Comment on above: Performed By: #### L 100.0100, L501.5200, L500.4050 ####[facility] [address] [place], [address] Hematocrit (Bld) [Volume fraction] 30.8 % Low 37-47 [facility] Comment on above: Performed By: #### L 100.0100, L501.5200, L500.4050 ####[facility] [address] [place], [address] Hemoglobin (Bld) [Mass/Vol] 10.8 g/dL Low 12.0-15.0 [facility] Comment on above: Performed By: #### L 100.0100, L501.5200, L500.4050 ####[facility] [address] [place], [address] IG% 0.300 Normal 0.0-0.9 [facility] Comment on above: Result Comment: IG% - Immature Granulocytes (promyelocytes, myelocytes and metamyelocytes) > 1% indicates that a LEFT SHIFT is Present. Performed By: #### L 100.0100, L501.5200, L500.4050 ####[facility] [address] [place], [address] Lymphocytes/100 WBC (Bld) 11.2 % Low 19-41 [facility] Comment on above: Performed By: #### L 100.0100, L501.5200, L500.4050 ####[facility] [address] [place], [address] MCH (RBC) [Entitic mass] 32.1 pg High 27.0-32.0 [facility] Comment on above: Performed By: #### L 100.0100, L501.5200, L500.4050 ####[facility] [address] [place], [address] MCHC (RBC) [Mass/Vol] 35.1 g/dL Normal 32-36 [facility] Comment on above: Performed By: #### L 100.0100, L501.5200, L500.4050 ####[facility] [address] [place], [address] MCV (RBC) [Entitic vol] 91.7 fL Normal 81-99 [facility] Comment on above: Performed By: #### L 100.0100, L501.5200, L500.4050 ####[facility] [address] [place], [address] Monocytes/100 WBC (Bld) 5.3 % Normal 0-10 [facility] Comment on above: Performed By: #### L 100.0100, L501.5200, L500.4050 ####[facility] [address] [place], [address] Neutrophils/100 WBC (Bld) 80.5 % High 47-70 [facility] Comment on above: Performed By: #### L 100.0100, L501.5200, L500.4050 ####[facility] [address] [place], [address] Nucleated RBC (Bld) [#/Vol] 0 10*3/uL Normal 0-5 [facility] Comment on above: Performed By: #### L 100.0100, L501.5200, L500.4050 ####[facility] [address] [place], [address] Platelet mean volume (Bld) [Entitic vol] 9.3 fL Normal 6.2-12.0 [facility] Comment on above: Performed By: #### L 100.0100, L501.5200, L500.4050 ####[facility] [address] [place], [address] Platelets (Bld) [#/Vol] 155 10*3/uL Normal 150-450 [facility] Comment on above: Performed By: #### L 100.0100, L501.5200, L500.4050 ####[facility] [address] [place], [address] RBC (Bld) [#/Vol] 3.36 10*6/uL Low 4.2-5.4 [facility] Comment on above: Performed By: #### L 100.0100, L501.5200, L500.4050 ####[facility] [address] [place], [address] RDW SD 41.9 fl Normal 35.1-43.9 [facility] Comment on above: Performed By: #### L 100.0100, L501.5200, L500.4050 ####[facility] [address] [place], [address] WBC (Bld) [#/Vol] 10.3 10*3/uL Normal 4.4-11.0 [facility] Comment on above: Performed By: #### L 100.0100, L501.5200, L500.4050 ####[facility] [address] [place], [address] Comprehensive Metabolic Prof ilon 07-14-2024 Albumin [Mass/Vol] 3.3 g/dL Normal 3.2-5.0 [facility] Comment on above: Performed By: #### L 100.0100, L501.5200, L500.4050 ####[facility] [address] [place], [address] Albumin/Globulin [Mass ratio] 1.1 {ratio} Normal 0.9-2.4 [facility] Comment on above: Performed By: #### L 100.0100, L501.5200, L500.4050 ####[facility] [address] [place], [address] ALK P 87 U/L Normal 45-117 [facility] Comment on above: Performed By: #### L 100.0100, L501.5200, L500.4050 ####[facility] [address] [place], [address] ALT [Catalytic activity/Vol] 33 U/L Normal 13-56 [facility] Comment on above: Performed By: #### L 100.0100, L501.5200, L500.4050 ####[facility] [address] [place], [address] AST [Catalytic activity/Vol] 64 U/L High 15-37 [facility] Comment on above: Performed By: #### L 100.0100, L501.5200, L500.4050 ####[facility] [address] [place], [address] Bilirubin [Mass/Vol] 0.60 mg/dL Normal 0.20-1.00 [facility] Comment on above: Result Comment: For patients on eltrombopag therapy, use of Dimension [place] TBIL is not recommended. Performed By: #### L 100.0100, L501.5200, L500.4050 ####[facility] [address] [place], [address] BUN/CRE 10.1 RATIO Normal 10-20 [facility] Comment on above: Performed By: #### L 100.0100, L501.5200, L500.4050 ####[facility] [address] [place], [address] CA,Total 8.8 mg/dL Normal 8.5-10.1 [facility] Comment on above: Performed By: #### L 100.0100, L501.5200, L500.4050 ####[facility] [address] [place], [address] Chloride [Moles/Vol] 107 mmol/L Normal 98-107 [facility] Comment on above: Performed By: #### L 100.0100, L501.5200, L500.4050 ####[facility] [address] [place], [address] CO2 [Moles/Vol] 25.0 mmol/L Normal 21.0-32.0 [facility] Comment on above: Performed By: #### L 100.0100, L501.5200, L500.4050 ####[facility] [address] [place], [address] Creatinine [Mass/Vol] 1.59 mg/dL High 0.55-1.02 [facility] Comment on above: Result Comment: The validity of the calculated GFR GFRAA in patients over 70 years has not been determined. Clinical correlation is essential. Performed By: #### L 100.0100, L501.5200, L500.4050 ####[facility] [address] [place], [address] ECRCL 36.40 ml/min Normal [facility] Comment on above: Performed By: #### L 100.0100, L501.5200, L500.4050 ####[facility] [address] [place], [address] EST GFR - AA 43 mL/min Low >60 [facility] Comment on above: Result Comment: Afri can Georgian GFR Calc Performed By: #### L 100.0100, L501.5200, L500.4050 ####[facility] [address] [place], [address] GAP 3 Low 5-15 [facility] Comment on above: Performed By: #### L 100.0100, L501.5200, L500.4050 ####[facility] [address] [place], [address] GFR/1.73 sq M.predicted among non-blacks MDRD (S/P/Bld) [Vol rate/Area] 36 mL/min/{1.73_m2} Low >60 [facility] Comment on above: Result Comment: Non- GFR Calc Performed By: #### L 100.0100, L501.5200, L500.4050 ####[facility] [address] [place], [address] Globulin (S) [Mass/Vol] 2.9 g/dL Normal 2.2-4.2 [facility] Comment on above: Performed By: #### L 100.0100, L501.5200, L500.4050 ####[facility] [address] [place], [address] Glucose [Mass/Vol] 115 mg/dL High 74-106 [facility] Comment on above: Result Comment: Fast ing Glucose result from 100 to 125 mg/dL suggests IMPAIRED HOMEOSTASIS per A.D.A. criteria. Performed By: #### L 100.0100, L501.5200, L500.4050 ####[facility] [address] [place], [address] Potassium [Moles/Vol] 4.1 mmol/L Normal 3.5-5.1 [facility] Comment on above: Performed By: #### L 100.0100, L501.5200, L500.4050 ####[facility] [address] [place], [address] Sodium [Moles/Vol] 135 mmol/L Low 136-145 [facility] Comment on above: Performed By: #### L 100.0100, L501.5200, L500.4050 ####[facility] [address] [place], [address] T PROT 6.2 g/dL Low 6.4-8.2 [facility] Comment on above: Performed By: #### L 100.0100, L501.5200, L500.4050 ####[facility] [address] [place], [address] Urea nitrogen [Mass/Vol] 16 mg/dL Normal 7-18 [facility] Comment on above: Performed By: #### L 100.0100, L501.5200, L500.4050 ####[facility] [address] [place], [address] Magnesiumon 07-14-2024 Magnesium [Mass/Vol] 2.3 mg/dL Normal 1.6-2.6 [facility] Comment on above: Performed By: #### L 100.0100, L501.5200, L500.4050 ####[facility] [address] [place], [address] 12 Lead EKGon 07-13-2024 12 Lead EKG [facility] Cardiovascular Services [address] [place] [address] 12 Lead EKG 07/13/24 0812 MR#: [id number] Acct: [id number] Name: HOLDEN CHILDERS Rep #: [id number] : 1970 54 From: Manpreet Hollis MD Attending Dr: Dr. Hernán Javier, DO Status: DIS IN Ordering Dr: Shiv Rea MD Date: 07/13/24 Location: MS3 Sex: F C Admitted: 07/13/24 Test Reason : Blood Pressure : */* mmHG Vent. Rate : 113 BPM Atrial Rate : 113 BPM P-R Int : 126 ms QRS Dur : 98 ms QT Int : 306 ms P-R-T Axes : 52 55 -27 degrees QTcB Int : 419 ms Sinus tachycardia Inferior-posterior infarct , age undetermined ST T wave abnormality, consider lateral ischemia Abnormal ECG When compared with ECG of 15-May-2010 06:01, Vent. rate has increased by 58 bpm Inferior-posterior infarct is now Present ST now depressed in Anterior leads T wave inversion more evident in Inferior leads T wave inversion now evident in Anterolateral leads Confirmed by MANPREET HOLLIS ([id number]), book editor CARLTON DUNN ([id number]) on 07/16/2024 1:46:37 PM Referred By: Confirmed By: MANPREET HOLLIS 07/16/24 1346 Date Manpreet Hollis MD CC: Dr. Bonifacio Bell MD; Dr. Hernán Javier DO; Dr. Shiv Rea MD Signed [facility] 12 Lead EKG [facility] Cardiovascular Services [address] [place] [address] 12 Lead EKG 07/13/24 0851 MR#: [id number] Acct: [id number] Name: HOLDEN CHILDERS Rep #: [id number] : 1970 54 From: Fred Christensen MD Attending Dr: Dr. Hernán Javier DO Status: ADM IN Ordering Dr: Shiv Rea MD Date: 07/13/24 Location: ICU Sex: F C Admitted: 07/13/24 Test Reason : Blood Pressure : */* mmHG Vent. Rate : 107 BPM Atrial Rate : 107 BPM P-R Int : 122 ms QRS Dur : 100 ms QT Int : 340 ms P-R-T Axes : 55 55 -32 degrees QTcB Int : 453 ms Sinus tachycardia with occasional Premature ventricular complexes Inferior-posterior infarct , age undetermined Abnormal ECG Confirmed by ANGELA ESPINOZA, FRED ([id number]), book editor DANIEL TOVAR ([id number]) on 07/14/2024 8:14:43 AM Referred By: VARINDER Confirmed By: FRED CHRISTENSEN MD 07/14/24 0814 Date Fred Christensen MD CC: Dr. Bonfiacio Bell MD; Dr. Hernán Javier DO; Dr. Shiv Rea MD Signed [facility] Alcohol, Blood (Medical)-Ser on 07-13-2024 SERUM ETOH < 3.0 Normal [facility] Comment on above: Result Comment: The serum:whole blood ethanol ratio is approximately 1.14 and varies slightly with hematocrit. Medical Alcohol reference interval and critical value in non-tolerant individuals; 50 - 100 Impairment 100 Intoxication 100 - 250 Severe Poisoning 250 - 400 Deep/possible fatal coma Performed By: #### L 500.4050, L501.9310, L501.5200, L501.9520, L500.4100 #### [facility] [address] [place], [address] [facility] Brain/Head without Contrast [facility] Imaging Services [address] [place] [address] Brain/Head without Contrast MR#: [id number] Acct: [id number] Name: HOLDEN CHILDERS Rep #: [id number] : 1970 F 54 From: Lj corral MD PCP: Dr. Bonifacio Bell MD Status: PRE ER Study: Brain/Head without Contrast Date of Exam: 06/25 05/18 Exam# [id number] Ordering Dr: Shiv Rea MD [id number] STUDY: CT BRAIN WITHOUT CONTRAST REASON FOR EXAM: Female, 54 years old. New onset seizure RADIATION DOSAGE (If Supplied By Facility): CTDIvol = ( 47.06 ) mGy, DLP = ( 907.97 ) mGycm TECHNIQUE: Transaxial CT imaging of the brain was performed without administration of intravenous contrast material. Individualized dose optimization techniques were used for this CT. COMPARISON: No relevant priors. FINDINGS: Normal soft tissue structures. Normal calvarium. Normal size ventricles and extra-axial spaces for the patient''s age. Normal white matter tracts of the cerebral hemispheres. Normal basal ganglia and thalami. Normal brainstem. Normal cerebellum. There is no intracranial hemorrhage. There are no findings of an acute ischemic infarction. Normal visualized paranasal sinuses. CT/Brain/Head without Contrast IMPRESSION: Normal unenhanced CT scan of the brain. Electronically Signed: Lj North MD at 9:45 EST Reading Location ID and State: [address] [place] [address] , Service support , CC: Dr. Bonifacio Bell MD; Dr. Shiv Rea MD Chemical Checker: Signed Normal [facility] CBC W/Diff, Automatedon 06-25 Absolute Lymph 0.64 X10 3/uL Low 0.83-4.51 [facility] Comment on above: Performed By: #### L 500.4050, L501.9310, L501.5200, L501.9520, L500.4100 #### [facility] [address] [place], [address] Absolute Neut 9.3 X10 3/uL High 2.0-7.7 [facility] Comment on above: Performed By: #### L 500.4050, L501.9310, L501.5200, L501.9520, L500.4100 #### [facility] [address] [place], [address] Basophils/100 WBC (Bld) 0.6 % Normal 0-1 [facility] Comment on above: Performed By: #### L 500.4050, L501.9310, L501.5200, L501.9520, L500.4100 #### [facility] [address] [place], [address] Eosinophils/100 WBC (Bld) 0.3 % Normal 0-5 [facility] Comment on above: Performed By: #### L 500.4050, L501.9310, L501.5200, L501.9520, L500.4100 #### [facility] [address] [place], [address] Erythrocyte distribution width (RBC) [Ratio] 12.8 % Normal 11.6-14.6 [facility] Comment on above: Performed By: #### L 500.4050, L501.9310, L501.5200, L501.9520, L500.4100 #### [facility] [address] [place], [address] Hematocrit (Bld) [Volume fraction] 39.2 % Normal 37-47 [facility] Comment on above: Performed By: #### L 500.4050, L501.9310, L501.5200, L501.9520, L500.4100 #### [facility] [address] [place], [address] Hemoglobin (Bld) [Mass/Vol] 13.4 g/dL Normal 12.0-15.0 [facility] Comment on above: Performed By: #### L 500.4050, L501.9310, L501.5200, L501.9520, L500.4100 #### [facility] [address] [place], [address] IG% 0.300 Normal 0.0-0.9 [facility] Comment on above: Result Comment: IG% - Immature Granulocytes (promyelocytes, myelocytes and metamyelocytes) > 1% indicates that a LEFT SHIFT is Present. Performed By: #### L 500.4050, L501.9310, L501.5200, L501.9520, L500.4100 #### [facility] [address] [place], [address] Lymphocytes/100 WBC (Bld) 5.9 % Low 19-41 [facility] Comment on above: Performed By: #### L 500.4050, L501.9310, L501.5200, L501.9520, L500.4100 #### [facility] [address] [place], [address] MCH (RBC) [Entitic mass] 31.6 pg Normal 27.0-32.0 [facility] Comment on above: Performed By: #### L 500.4050, L501.9310, L501.5200, L501.9520, L500.4100 #### [facility] [address] [place], [address] MCHC (RBC) [Mass/Vol] 34.2 g/dL Normal 32-36 [facility] Comment on above: Performed By: #### L 500.4050, L501.9310, L501.5200, L501.9520, L500.4100 #### [facility] [address] [place], [address] MCV (RBC) [Entitic vol] 92.5 fL Normal 81-99 [facility] Comment on above: Performed By: #### L 500.4050, L501.9310, L501.5200, L501.9520, L500.4100 #### [facility] [address] [place], [address] Monocytes/100 WBC (Bld) 7.2 % Normal 0-10 [facility] Comment on above: Performed By: #### L 500.4050, L501.9310, L501.5200, L501.9520, L500.4100 #### [facility] [address] [place], [address] Neutrophils/100 WBC (Bld) 85.7 % High 47-70 [facility] Comment on above: Performed By: #### L 500.4050, L501.9310, L501.5200, L501.9520, L500.4100 #### [facility] [address] [place], [address] Nucleated RBC (Bld) [#/Vol] 0 10*3/uL Normal 0-5 [facility] Comment on above: Performed By: #### L 500.4050, L501.9310, L501.5200, L501.9520, L500.4100 #### [facility] [address] [place], [address] Platelet mean volume (Bld) [Entitic vol] 9.6 fL Normal 6.2-12.0 [facility] Comment on above: Performed By: #### L 500.4050, L501.9310, L501.5200, L501.9520, L500.4100 #### [facility] [address] [place], [address] Platelets (Bld) [#/Vol] 193 10*3/uL Normal 150-450 [facility] Comment on above: Performed By: #### L 500.4050, L501.9310, L501.5200, L501.9520, L500.4100 #### [facility] [address] [place], [address] RBC (Bld) [#/Vol] 4.24 10*6/uL Normal 4.2-5.4 [facility] Comment on above: Performed By: #### L 500.4050, L501.9310, L501.5200, L501.9520, L500.4100 #### [facility] [address] [place], [address] RDW SD 43.1 fl Normal 35.1-43.9 [facility] Comment on above: Performed By: #### L 500.4050, L501.9310, L501.5200, L501.9520, L500.4100 #### [facility] [address] [place], [address] WBC (Bld) [#/Vol] 10.8 10*3/uL Normal 4.4-11.0 [facility] Comment on above: Performed By: #### L 500.4050, L501.9310, L501.5200, L501.9520, L500.4100 #### [facility] [address] [place], [address] Comprehensive Metabolic Prof [facility] 07-13-2024 Albumin [Mass/Vol] 4.0 g/dL Normal 3.2-5.0 [facility] Comment on above: Performed By: #### L 500.4050, L501.9310, L501.5200, L501.9520, L500.4100 #### [facility] [address] [place], [address] Albumin/Globulin [Mass ratio] 1.1 {ratio} Normal 0.9-2.4 [facility] Comment on above: Performed By: #### L 500.4050, L501.9310, L501.5200, L501.9520, L500.4100 #### [facility] [address] [place], [address] ALK P 110 U/L Normal 45-117 [facility] Comment on above: Performed By: #### L 500.4050, L501.9310, L501.5200, L501.9520, L500.4100 #### [facility] [address] [place], [address] ALT [Catalytic activity/Vol] 20 U/L Normal 13-56 [facility] Comment on above: Performed By: #### L 500.4050, L501.9310, L501.5200, L501.9520, L500.4100 #### [facility] [address] [place], [address] AST [Catalytic activity/Vol] 29 U/L Normal 15-37 [facility] Comment on above: Result Comment: Slig ht Hemolysis, Result may be falsely increased. Performed By: #### L 500.4050, L501.9310, L501.5200, L501.9520, L500.4100 #### [facility] [address] [place], [address] Bilirubin [Mass/Vol] 0.60 mg/dL Normal 0.20-1.00 [facility] Comment on above: Result Comment: For patients on eltrombopag therapy, use of Dimension [place] TBIL is not recommended. Performed By: #### L 500.4050, L501.9310, L501.5200, L501.9520, L500.4100 #### [facility] [address] [place], [address] BUN/CRE 9.3 RATIO Low 10-20 [facility] Comment on above: Performed By: #### L 500.4050, L501.9310, L501.5200, L501.9520, L500.4100 #### [facility] [address] [place], [address] CA,Total 9.4 mg/dL Normal 8.5-10.1 [facility] Comment on above: Performed By: #### L 500.4050, L501.9310, L501.5200, L501.9520, L500.4100 #### [facility] [address] [place], [address] Chloride [Moles/Vol] 108 mmol/L High 98-107 [facility] Comment on above: Performed By: #### L 500.4050, L501.9310, L501.5200, L501.9520, L500.4100 #### [facility] [address] [place], [address] CO2 [Moles/Vol] 22.0 mmol/L Normal 21.0-32.0 [facility] Comment on above: Performed By: #### L 500.4050, L501.9310, L501.5200, L501.9520, L500.4100 #### [facility] [address] [place], [address] Creatinine [Mass/Vol] 1.72 mg/dL High 0.55-1.02 [facility] Comment on above: Result Comment: The validity of the calculated GFR GFRAA in patients over 70 years has not been determined. Clinical correlation is essential. Performed By: #### L 500.4050, L501.9310, L501.5200, L501.9520, L500.4100 #### [facility] [address] [place], [address] ECRCL 33.65 ml/min Normal [facility] Comment on above: Performed By: #### L 500.4050, L501.9310, L501.5200, L501.9520, L500.4100 #### [facility] [address] [place], [address] EST GFR - AA 40 mL/min Low >60 [facility] Comment on above: Result Comment: Afri can Georgian GFR Calc Performed By: #### L 500.4050, L501.9310, L501.5200, L501.9520, L500.4100 #### [facility] [address] [place], [address] GAP 11 Normal 5-15 [facility] Comment on above: Performed By: #### L 500.4050, L501.9310, L501.5200, L501.9520, L500.4100 #### [facility] [address] [place], [address] GFR/1.73 sq M.predicted among non-blacks MDRD (S/P/Bld) [Vol rate/Area] 33 mL/min/{1.73_m2} Low >60 [facility] Comment on above: Result Comment: Non- GFR Calc Performed By: #### L 500.4050, L501.9310, L501.5200, L501.9520, L500.4100 #### [facility] [address] [place], [address] Globulin (S) [Mass/Vol] 3.5 g/dL Normal 2.2-4.2 [facility] Comment on above: Performed By: #### L 500.4050, L501.9310, L501.5200, L501.9520, L500.4100 #### [facility] [address] [place], [address] Glucose [Mass/Vol] 138 mg/dL High 74-106 [facility] Comment on above: Result Comment: Fast ing Glucose result greater than or equal to 126 mg/dL suggests DIABETES MELLITUS per A.D.A. criteria. Performed By: #### L 500.4050, L501.9310, L501.5200, L501.9520, L500.4100 #### [facility] [address] [place], [address] Potassium [Moles/Vol] 3.3 mmol/L Low 3.5-5.1 [facility] Comment on above: Result Comment: Slig ht Hemolysis, Result may be falsely increased. Performed By: #### L 500.4050, L501.9310, L501.5200, L501.9520, L500.4100 #### [facility] [address] [place], [address] Sodium [Moles/Vol] 141 mmol/L Normal 136-145 [facility] Comment on above: Performed By: #### L 500.4050, L501.9310, L501.5200, L501.9520, L500.4100 #### [facility] [address] [place], [address] T PROT 7.5 g/dL Normal 6.4-8.2 [facility] Comment on above: Performed By: #### L 500.4050, L501.9310, L501.5200, L501.9520, L500.4100 #### [facility] [address] [place], [address] Urea nitrogen [Mass/Vol] 16 mg/dL Normal 7-18 [facility] Comment on above: Performed By: #### L 500.4050, L501.9310, L501.5200, L501.9520, L500.4100 #### [facility] [address] [place], [address] Emergency Department Summary on 07-13-2024 Emergency Department Summary [facility] Medical Records Department [address] [place] [address] Emergency Department Summary 07/13/24 MR#: [id number] Acct: [id number] Name: HOLDEN CHILDERS Rep #: [id number] : 1970 54 From: Shiv Rea MD PCP: Dr. Bonifacio Bell MD Status:REG ER Location: ED HPI History of Present Illness Chief Complaint: Seizure Detail of Chief Complaint: Witnessed seizure by ex enbcst-vh-yda Informant: patient and friend Onset/Context/Timing Onset: Today (Witnessed seizure, generalized tonic-clonic) and Yesterday (Took intentional overdose of muscle relaxant . Asked why she took the muscle relaxant and she responded I wanted to kill myself .) Context: Sudden Onset Timing: Intermittent Quality: Abdominal pain that is generalized Location: Generalized Current Severity: Mild Maximum Severity: Severe Worsened by: Vomiting Relieved by: Nothing Associated Symptoms Associated Symptoms: Nausea and vomiting Narrative Narrative: Patient is a 54-year-old woman. She admits she is depressed. She admits that she intentionally took a large quantity of muscle relaxant to kill yourself . She does not know the name of the medication. She does not know the strength of the medication or how many she took. She responded a lot . She lives with her ex uwqrym-qj-unf. Ex rugiei-jf-myy was unaware that she was depressed or attempted to kill herself. Ex qxecqo-ck-pag called squad because she had a generalized tonic- clonic seizure. She had nausea and vomiting prior to the generalized tonic-clonic seizure. Patient does endorse cough. Paramedics administered Narcan. She awoke after Narcan. She denies opiate use. She denies illicit drug use. Patient is stuttering. She has a tremor. She has difficulty answering questions because she cannot recall. She is confused and disoriented. This may be due to her being postictal. Prior similar symptoms: No Recent Illness/Hospitalizat ion: No PFSH PFS Medical History Migraine CAD (coronary artery disease) Anxiety and depression Health care maintenance Fibromyalgia Vision problems GERD (gastroesophageal reflux disease) Irritable bowel syndrome Recurrent infections High blood cholesterol Heart failure High blood pressure Hearing problem Heart disease Head ache Gastrointestinal problem Emotional problems Carpal tunnel syndrome History of blood transfusion Back pain Seasonal allergies Home Medications ???Medication ???Instructions ???Recorded ???Last Taken ???Type acyclovir 400 mg tablet 400 mg PO QDAY 06/14/24 Unknown History albuterol sulfate 90 mcg/actuation 2 puff inhalation Q6H PRN 06/14/24 Unknown History aerosol inhaler aspirin 81 mg tablet,delayed 81 mg PO QDAY 06/14/24 Unknown History release (Adult Aspirin Regimen) atorvastatin 40 mg tablet (Lipitor) 40 mg PO QDAY 06/14/24 Unknown History azelastino .Route 06/14/24 Unknown History biotin 5 mg capsule 5 mg PO QDAY 06/14/24 Unknown History cholecalciferol (vitamin D3) 25 25 mcg PO QDAY 06/14/24 Unknown History mcg (1,000 unit) capsule cyclobenzaprine 5 mg tablet 5 mg PO QHS 06/14/24 Unknown History diclofenac sodium 1 % topical gel 2 g topical ONCE 06/14/24 Unknown History duloxetine 30 mg capsule,delayed 30 mg PO BID 3 months #180 caps 06/14/24 Unknown Rx release fluticasone propionate 50 1 spray intranasal QDAY 06/14/24 Unknown History mcg/actuation nasal spray,suspension (Flonase Allergy Relief) ketoconazole 2 % topical foam 1 applic topical BID 06/14/24 Unknown History lysine 1,000 mg tablet 1,000 mg PO QDAY 06/14/24 Unknown History magnesium 200 mg tablet 400 mg PO BID 06/14/24 Unknown History metoprolol tartrate 25 mg tablet 25 mg PO QDAY 06/14/24 Unknown History montelukast 10 mg tablet 10 mg PO QDAY 06/14/24 Unknown History ticagrelor 90 mg tablet (Brilinta) 90 mg PO BID 06/14/24 Unknown History Allergy/AdvReac Type Severity Reaction Status Date / Time codeine Allergy Intermediate Vomiting Verified 07/13/24 07:59 Family History Father Angina at rest Myocardial infarction, Onset Age: 70 High cholesterol Mother History of blood transfusion Anxiety Hypertension Aunt Cancer breast Grandfather Myocardial infarction, Onset Age: 70 Sister Asthma Surgical History History of hysterectomy H/O wisdom tooth extraction S/P foot surgery Hx of tonsillectomy S/P appendectomy Social History household members: other details: ex in laws housing: house current occupational status: employed 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 Normal [facility] H AND P Exam - [facility]iston 07-13-2024 H&P Exam - Hospitalist [facility] Medical Records Department [address] [place] [address] H P Exam - Hospitalist 07/13/24 1136 MR#: [id number] Acct: [id number] Name: LISETHHOLDENBAUTISTA CRONIN Rep #: [id number] : 1970 54 From: Hernán Javier DO PCP: Dr. Bonifacio Bell MD Status:ADM IN Location: ICU ICU02-1 HPI - General General Date of Admission: 07/13/24 Date of Service: 07/13/24 Chief Complaint: overdose. HPI Narrative HOLDEN CHILDERS, is a 54 F who presents after being found with a seiuzre x2 at home. Patient had intentionally took a large quantity of pregabalin, meloxicam, and tramadol in an attempt to kill herself. Pt was confused following the seizures, and mental status has since improved. No h/o seizure. She became hypotensive in the ED and received IVF. Pt was pink-slipped in the ED and the hospitalist service was contacted for admission. [facility] Medical History Migraine CAD (coronary artery disease) Anxiety and depression Health care maintenance Fibromyalgia Vision problems GERD (gastroesophageal reflux disease) Irritable bowel syndrome Recurrent infections High blood cholesterol Heart failure High blood pressure Hearing problem Heart disease Head ache Gastrointestinal problem Emotional problems Carpal tunnel syndrome History of blood transfusion Back pain Seasonal allergies Home Medications ???Medication ???Instructions ???Recorded ???Last Taken ???Type acyclovir 400 mg tablet 400 mg PO QDAY 06/14/24 Unknown History albuterol sulfate 90 mcg/actuation 2 puff inhalation Q6H PRN 06/14/24 Unknown History aerosol inhaler aspirin 81 mg tablet,delayed 81 mg PO QDAY 06/14/24 Unknown History release (Adult Aspirin Regimen) atorvastatin 40 mg tablet (Lipitor) 40 mg PO QDAY 06/14/24 Unknown History azelastino .Route 06/14/24 Unknown History biotin 5 mg capsule 5 mg PO QDAY 06/14/24 Unknown History cholecalciferol (vitamin D3) 25 25 mcg PO QDAY 06/14/24 Unknown History mcg (1,000 unit) capsule cyclobenzaprine 5 mg tablet 5 mg PO QHS 06/14/24 Unknown History diclofenac sodium 1 % topical gel 2 g topical ONCE 06/14/24 Unknown History duloxetine 30 mg capsule,delayed 30 mg PO BID 3 months #180 caps 06/14/24 Unknown Rx release fluticasone propionate 50 1 spray intranasal QDAY 06/14/24 Unknown History mcg/actuation nasal spray,suspension (Flonase Allergy Relief) ketoconazole 2 % topical foam 1 applic topical BID 06/14/24 Unknown History lysine 1,000 mg tablet 1,000 mg PO QDAY 06/14/24 Unknown History magnesium 200 mg tablet 400 mg PO BID 06/14/24 Unknown History metoprolol tartrate 25 mg tablet 25 mg PO QDAY 06/14/24 Unknown History montelukast 10 mg tablet 10 mg PO QDAY 06/14/24 Unknown History ticagrelor 90 mg tablet (Brilinta) 90 mg PO BID 06/14/24 Unknown History Allergy/AdvReac Type Severity Reaction Status Date / Time codeine Allergy Intermediate Vomiting Verified 07/13/24 07:59 Family History Father Angina at rest Myocardial infarction, Onset Age: 70 High cholesterol Mother History of blood transfusion Anxiety Hypertension Aunt Cancer breast Grandfather Myocardial infarction, Onset Age: 70 Sister Asthma Surgical History History of hysterectomy H/O wisdom tooth extraction S/P foot surgery Hx of tonsillectomy S/P appendectomy Social History household members: other details: ex in laws housing: house current occupational status: employed 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 Blurry vision. No headache. All review of systems were negative except as mentioned above in the history of present illness and the other review of systems. Vital Signs Vital Signs Vital Signs: 07/13/24 07:50 07/13/24 09:49 07/13/24 11:00 Temperature 36.8 C Temperature Source Oral Pulse Rate 136 H 66 99 Respiratory Rate 17 16 24 H Blood Pressure 146/80 H 103/61 155/90 H Blood Pressure Mean 102 75 111 Pulse Ox 95 96 100 Oxygen Delivery Method Room Air Room Air Room Air 07/13/24 11:20 Temperature 36.7 C Temperature Source Pulse Rate 99 Respiratory Rate 24 H Blood Pressure 155/90 H Blood Pressure Mean 111 Pulse (more content not included)... Normal [facility] Lactic Acidon 07-13-2024 Lactate [Moles/Vol] 3.9 mmol/L Invalid Interpretation Code 0.4-1.9 [facility] Comment on above: Order Comment: Y Result Comment: Crit ical Result(s) Called at: 09:18:32 07/13/2024 by: Samina Barroso to Farida Snowden. Results read back by same. Performed By: #### L 500.4050, L501.9310, L501.5200, L501.9520, L500.4100 #### [facility] [address] [place], [address] Lipaseon 07-13-2024 Lipase [Catalytic activity/Vol] 37 U/L Normal 13-75 [facility] Comment on above: Result Comment: Naveen abdullahi note: LIPASE revised reference range effective 22. New Lipase methodology. Expected to produce lower values than the previous assay method. NEW Reference Range: 13 - 75 U/L Performed By: #### L 500.4050, L501.9310, L501.5200, L501.9520, L500.4100 #### [facility] [address] [place], [address] Partial Thromboplast Timeon 07-13-2024 aPTT Coag (Bld) [Time] 21.9 s Low 24.1-36.2 [facility] Comment on above: Performed By: #### L 500.4050, L501.9310, L501.5200, L501.9520, L500.4100 #### [facility] [address] [place], [address] ,Urineon 07-13-2024 Beta HCG ( test) Ql (U) Negative Normal [facility] Comment on above: Result Comment: Very dilute urine specimens, as indicated by a low specific gravity, may not contain access service representative levels of hCG. If is still suspected, a first morning urine specimen should be collected 48 hours later and tested. Performed By: #### L 400.7600 ####[facility] [address] [place], [address] Prothrombin Time w/INRon INR Coag (PPP) [Relative time] 1.0 {INR} Normal [facility] Comment on above: Performed By: #### L 500.4050, L501.9310, L501.5200, L501.9520, L500.4100 #### [facility] [address] [place], [address] PT Coag (PPP) [Time] 13.2 s Normal 11.7-14.9 [facility] Comment on above: Performed By: #### L 500.4050, L501.9310, L501.5200, L501.9520, L500.4100 #### [facility] [address] [place], [address] Urinalysis, Completeon 07-13 BILIRUBIN URINE Negative Normal Negative [facility] Comment on above: Order Comment: CLEAN CATCH Performed By: #### L 400.0001, L505.5000 ####[facility] [address] [place], [address] Clarity (U) Clear Normal Clear [facility] Comment on above: Order Comment: CLEAN CATCH Performed By: #### L 400.0001, L505.5000 ####[facility] [address] [place], [address] Color (U) Yellow Normal Yellow [facility] Comment on above: Order Comment: CLEAN CATCH Performed By: #### L 400.0001, L505.5000 ####[facility] [address] [place], [address] GLUCOSE, UR Normal Normal Normal [facility] Comment on above: Order Comment: CLEAN CATCH Performed By: #### L 400.0001, L505.5000 ####[facility] [address] [place], [address] KETONE UR Negative Normal Negative [facility] Comment on above: Order Comment: CLEAN CATCH Performed By: #### L 400.0001, L505.5000 ####[facility] [address] [place], [address] LEUK ESTERASE Negative Normal Negative [facility] Comment on above: Order Comment: CLEAN CATCH Performed By: #### L 400.0001, L505.5000 ####[facility] [address] [place], [address] Nitrite Ql (U) Negative Normal Negative [facility] Comment on above: Order Comment: CLEAN CATCH Performed By: #### L 400.0001, L505.5000 ####[facility] [address] [place], [address] OCCULT BLOOD-UR Negative Normal Negative [facility] Comment on above: Order Comment: CLEAN CATCH Performed By: #### L 400.0001, L505.5000 ####[facility] [address] [place], [address] pH UR 6.0 Normal 5.0 - 8.0 [facility] Comment on above: Order Comment: CLEAN CATCH Performed By: #### L 400.0001, L505.5000 ####[facility] [address] [place], [address] PROT DIPSTX 15 mg/dl Abnormal Negative [facility] Comment on above: Order Comment: CLEAN CATCH Performed By: #### L 400.0001, L505.5000 ####[facility] [address] [place], [address] SP.GR. DIPSTX 1.025 Normal 1.002-1.030 [facility] Comment on above: Order Comment: CLEAN CATCH Performed By: #### L 400.0001, L505.5000 ####[facility] [address] [place], [address] UROBILI Normal Normal Normal [facility] Comment on above: Order Comment: CLEAN CATCH Performed By: #### L 400.0001, L505.5000 ####[facility] [address] [place], [address] BACTERIA 0 SEEN Normal None Seen [facility] Comment on above: Order Comment: CLEAN CATCH Performed By: #### L 400.0001, L505.5000 ####[facility] [address] [place], [address] EPI,SQUAMOUS 0 SEEN Normal 5-10 [facility] Comment on above: Order Comment: CLEAN CATCH Performed By: #### L 400.0001, L505.5000 ####[facility] [address] [place], [address] Mucus Ql (Urine sed) 0 SEEN Normal [facility] Comment on above: Order Comment: CLEAN CATCH Performed By: #### L 400.0001, L505.5000 ####[facility] [address] [place], [address] RBC 0 SEEN Normal 0-5 [facility] Comment on above: Order Comment: CLEAN CATCH Performed By: #### L 400.0001, L505.5000 ####[facility] [address] [place], [address] WBC 0 SEEN Normal 0-5 [facility] Comment on above: Order Comment: CLEAN CATCH Performed By: #### L 400.0001, L505.5000 ####[facility] [address] [place], [address] Urine Drug Screen (VISTA)on 07-13-2024 AMPHETAMINES Negative Normal <1000 ng/mL [facility] Comment on above: Performed By: #### L 400.0001, L505.5000 ####[facility] [address] [place] [address] BARBITIURATES Negative Normal < 200 ng/mL [facility] Comment on above: Performed By: #### L 400.0001, L505.5000 ####[facility] [address] [place] [address] BENZODIAZIPINE Negative Normal < 200 ng/mL [facility] Comment on above: Performed By: #### L 400.0001, L505.5000 ####[facility] [address] [place] [address] COCAINE Negative Normal < 300 ng/mL [facility] Comment on above: Performed By: #### L 400.0001, L505.5000 ####[facility] [address] [place] [address] ECSTACY Negative Normal < 500 ng/mL [facility] Comment on above: Performed By: #### L 400.0001, L505.5000 ####[facility] [address] [place] [address] METHADONE Negative Normal < 300 ng/mL [facility] Comment on above: Performed By: #### L 400.0001, L505.5000 ####[facility] [address] [place] [address] OPIATES Negative Normal < 300 ng/mL [facility] Comment on above: Performed By: #### L 400.0001, L505.5000 ####[facility] [address] [place] [address] PCP Positive Abnormal < 25 ng/mL [facility] Comment on above: Performed By: #### L 400.0001, L505.5000 ####[facility] [address] [place] [address] THC Positive Abnormal < 50 ng/mL [facility] Comment on above: Performed By: #### L 400.0001, L505.5000 ####[facility] [address] [place], [place], [address] V[address]A [address]DS PH 4 Normal [facility] Comment on above: Performed By: #### L 400.0001, L505.5000 ####[facility] [address] [place], [place], [address] CNOVon 07-06-2024 CNOV Office Visit (SLLAME) HOLDEN CHILDERS ([id number]) 1970 F Date Time Provider Department 07/06/24 7:00 AM SLEEP ARNULFOMckay GABBIE During your visit today, we recorded the following information about you: Referring Provider: PRANAV PENA [[id number]] Allergies As of Date: 07/06/2024 Noted Allergy Reaction CODEINE 12/18/2023 11 - Vomiting Date Reviewed: 06/15/2024 Reviewed by: Maxine Blair MA - Fully Assessed Reason for Visit: Sleep Problem [100] Primary Visit Diagnosis:Hypersomni a [G47.10] Prescriptions as of 07/12/2024 - cholecalciferol (VITAMIN D-3) 5,000 unit tab Take 5,000 Units by mouth once daily. - DULoxetine (CYMBALTA) 30 mg capsule Take 1 capsule by mouth once daily. - acyclovir (ZOVIRAX) 400 mg tablet TAKE 1 TABLET BY MOUTH TWICE A DAY NEEDED FOR COLD SORES - azelastine 0.1% nasal spray Use 1 [place] in each nostril two times a day. - cyanocobalamin (VITAMIN B-12) 500 mcg tablet Take by mouth. - VOLTAREN ARTHRITIS PAIN 1 % topical gel - sodium fluoride (PREVIDENT 5000 PLUS) 1.1 % dental cream USE AT BEDTIME - ketoconazole (NIZORAL) 2 % cream APPLY TOPICALLY TO THE AFFECTED AREA DAILY - traMADol (ULTRAM) 50 mg tablet - metoprolol succinate ER (TOPROL XL) 50 mg 24 hr tablet - atorvastatin (LIPITOR) 40 mg tablet Take 1 tablet by mouth every afternoon. - aspirin 81 mg chewable tablet CHEW 1 TABLET BY MOUTH EVERY DAY WITH A MEAL - ticagrelor (BRILINTA) 90 mg tablet Take by mouth. - pregabalin (LYRICA) 50 mg capsule Take 50 mg by mouth three times a day. - sertraline (ZOLOFT) 50 mg tablet Take 50 mg by mouth three times a day. - LYSINE ORAL Take by mouth. - fluticasone propionate (FLONASE NASAL) Use in the nose. - albuterol sulfate 90 mcg/actuation breath activated powder inhaler Inhale as instructed. - cyclobenzaprine (FLEXERIL) 5 mg tablet Take 1 tablet by mouth daily at bedtime. - magnesium oxide (MAG-OX) 400 mg (241.3 mg magnesium) tablet Take 1 tablet by mouth twice daily. - montelukast (SINGULAIR) 10 mg tablet Take 1 tablet by mouth daily at bedtime. Problem List As Of Date 07/06/2024 Noted Resolved Dysplasia of Cervix [N87.9] 02/01/2010 Fibromyalgia [M79.7] 08/14/2012 Seasonal allergic rhinitis due to pollen [J30.1]07/12/2022 Chronic neck and back pain [M54.2, M54.9, G89.2*07/12/2022 Sinus headache [R51.9] 10/17/2022 Encounter Status:Closed by ABBY GOULD on 07/12/24 [facility] POLYSOMNOGRAM (PSG)/HOME SLE EP APNEA TEST (HSAT)on 07-06-2024 POLYSOMNOGRAM (PSG)/HOME SLEEP APNEA TEST (HSAT) [facility] [address] [place] [address], [address] [place] [address] ; MSLT Report Name: HOLDEN CHILDERS Date of Study: 07/06/2024 [facility]#: [id number] Age: 54 (: 1970) ESS: 16 Neck Circ. (cm): 12.5 Height (cm): 65.0in Weight (kg): 172.0lb BMI: 28.6 Referring Provider: PRANAV PENA Sleep history: The patient is a 54 year old female. The patient had an overnight polysomnogram the night before this test which showed an overall AHI of 0.46 (RDI of 1.06), minimum oxygen saturation of 90%, sleep efficiency of 68.7%, total sleep time of 6 hours and 35 minutes, total recorded time of 9 hours and 35 minutes, sleep latency was 42 minutes. Medications: Metoprolol, Lipitor, Aspirin, Brilinta, Cyclobenzaprine, Pregabalin, Sertraline, Montelukast, Magnesium Oxide, Flonase, Azelastine, Albuterol, Diclofenac, Ketoconazole, l-lysine, Acyclovir Sleep procedure: MSLT or MWT PC ([id number]) Procedure: The study was attended continuously by a product/device technologist. The monitored parameters included: left (E1-M2) and right (E2-M1) EOG, frontal (F3-M2 and F4-M1), central (C3-M2 and C4-M1) and occipital (O1-M2 and O2-M1) EEG, mental and submental EMG. MSLT DATA: Trial Start-Time End-Time Sleep-Latency REM-Latency 1 08:09:59 08:39:14 14.0 m 9.5 m Trial Start-Time End-Time Sleep-Latency REM-Latency 2 10:10:52 10:30:59 20.0 m 20.0 m Trial Start-Time End-Time Sleep-Latency REM-Latency 3 12:10:00 12:29:45 20.0 m 20.0 m Trial Start-Time End-Time Sleep-Latency REM-Latency 4 14:11:45 14:34:09 7.5 m 20.0 m Trial Start-Time End-Time Sleep-Latency REM-Latency 5 16:15:24 16:35:23 20.0 m 20.0 m Mean Sleep Latency: 16.3m Number of Sleep Onset REM Periods: 1 Urine toxicology screen-routine: Test performed ICSD DIAGNOSIS - primary snoring, hypersomnolence IMPRESSION/RECOMMEND ATION: 1. Mean sleep latency 16.3 min is not consistent with a diagnosis of hypersomnia nor narcolepsy 2. Recommend ongoing evaluation by sleep medicine and counseling regarding good sleep hygiene practices and adequate sleep duration INTERPRETING PHYSICIAN: Arnoldo Rangel MD, MPH I attest that I have performed epoch by epoch review of the entire raw data. Report Digitally Signed By: Arnoldo Rangel (07/15/2024 11:44:21 AM) Normal [facility] TOXICOLOGY SCREEN, ROUTINE U RINEon 07-06-2024 Amphetamines Confirm (U) [Mass/Vol] Negative Normal Negative [facility] Comment on above: Order Comment: Speci men Type: URINE SPECIMENOrdering Facility: [facility] Address: [address] [place] [address] Result Comment: Cuto ff threshold at 1000 ng/mL. Performed By: #### U TOX2 ####[facility] LABORATORYCLIA [id number] [place] [address] [place] BARBITURATES, URINE Negative Normal Negative [facility] Comment on above: Order Comment: Speci men Type: URINE SPECIMENOrdering Facility: [facility] Address: [address] [place] [address] Result Comment: Cuto ff threshold at 200 ng/mL. Performed By: #### U TOX2 ####[facility] LABORATORYCLIA [id number] [place] [address] [place] BENZODIAZEPINES, UR Negative Normal Negative [facility] Comment on above: Order Comment: Speci men Type: URINE SPECIMENOrdering Facility: [facility] Address: [address] [place] [address] Result Comment: Cuto ff threshold at 200 ng/mL. Performed By: #### U TOX2 ####[facility] LABORATORYCLIA [id number] [place] [address] [place] Cannabinoids Screen Ql (U) Positive Abnormal Negative [facility] Comment on above: Order Comment: Speci men Type: URINE SPECIMENOrdering Facility: [facility] Address: [address] [place] [address] Result Comment: Cuto ff threshold at 50 ng/mL. Performed By: #### U TOX2 ####[facility]ORATORYCLIA [id number] [place] [address] [place] Cocaine Ql (U) Negative Normal Negative [facility] Comment on above: Order Comment: Speci men Type: URINE SPECIMENOrdering Facility: [facility] Address: [address] [place] [address] Result Comment: Cuto ff threshold at 300 ng/mL. Performed By: #### U TOX2 ####[facility]ORATORYCLIA [id number] [address] Opiates Screen Ql (U) Negative Normal Negative [facility] Comment on above: Order Comment: Speci men Type: URINE SPECIMENOrdering Facility: [facility] Address: [address] [place] [address] Result Comment: Cuto ff threshold at 300 ng/mL. Performed By: #### U TOX2 ####[facility] LABORATORYCLIA [id number] [address] Phencyclidine Ql (U) Negative Normal Negative [facility] Comment on above: Order Comment: Speci men Type: URINE SPECIMENOrdering Facility: [facility] Address: [address] [place] [address] Result Comment: Cuto ff threshold at 25 ng/mL. 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 Location: [facility] Latex allergy: No Tape allergy: No Current medications were reviewed with the patient:Yes Sleep aid taken by patient for the sleep study: [place] of sleep aid: Not Applicable Procedure was explained to the patient and all questions were answered. PAP treatment discussed and shown to patient: No If PAP used enter mask info: Mask Name Make MaskType Mask Size Chin Sharp Used Knowledge Program (KP): KP was not completed in [facility] by patient and accepted Study type: Polysomnogram Adverse Event: No (If yes create a new abstract) Comments: Patient was advised to follow up with their ordering provider regarding test results Deborah Brewer Referring Provider: PRANAV PENA [[id number]] Allergies As of Date: 07/05/2024 Noted Allergy Reaction CODEINE 12/18/2023 11 - Vomiting Date Reviewed: 06/15/2024 Reviewed by: Maxine Blair MA - Fully Assessed Visit Diagnosis:Hypersomni a [G47.10] Order(s):POLYSOMNOGR AM (PSG) [[id number]] Order #: [id number] Prescriptions as of 07/06/2024 - cholecalciferol (VITAMIN D-3) 5,000 unit tab Take 5,000 Units by mouth once daily. - DULoxetine (CYMBALTA) 30 mg capsule Take 1 capsule by mouth once daily. - acyclovir (ZOVIRAX) 400 mg tablet TAKE 1 TABLET BY MOUTH TWICE A DAY NEEDED FOR COLD SORES - azelastine 0.1% nasal spray Use 1 [place] in each nostril two times a day. - cyanocobalamin (VITAMIN B-12) 500 mcg tablet Take by mouth. - VOLTAREN ARTHRITIS PAIN 1 % topical gel - sodium fluoride (PREVIDENT 5000 PLUS) 1.1 % dental cream USE AT BEDTIME - ketoconazole (NIZORAL) 2 % cream APPLY TOPICALLY TO THE AFFECTED AREA DAILY - traMADol (ULTRAM) 50 mg tablet - metoprolol succinate ER (TOPROL XL) 50 mg 24 hr tablet - atorvastatin (LIPITOR) 40 mg tablet Take 1 tablet by mouth every afternoon. - aspirin 81 mg chewable tablet CHEW 1 TABLET BY MOUTH EVERY DAY WITH A MEAL - ticagrelor (BRILINTA) 90 mg tablet Take by mouth. - pregabalin (LYRICA) 50 mg capsule Take 50 mg by mouth three times a day. - sertraline (ZOLOFT) 50 mg tablet Take 50 mg by mouth three times a day. - LYSINE ORAL Take by mouth. - fluticasone propionate (FLONASE NASAL) Use in the nose. - albuterol sulfate 90 mcg/actuation breath activated powder inhaler Inhale as instructed. - cyclobenzaprine (FLEXERIL) 5 mg tablet Take 1 tablet by mouth daily at bedtime. - magnesium oxide (MAG-OX) 400 mg (241.3 mg magnesium) tablet Take 1 tablet by mouth twice daily. - montelukast (SINGULAIR) 10 mg tablet Take 1 tablet by mouth daily at bedtime. Problem List As Of Date 07/05/2024 Noted Resolved Dysplasia of Cervix [N87.9] 02/01/2010 Fibromyalgia [M79.7] 08/14/2012 Seasonal allergic rhinitis due to pollen [J30.1]07/12/2022 Chronic neck and back pain [M54.2, M54.9, G89.2*07/12/2022 Sinus headache [R51.9] 10/17/2022 Encounter Status:Closed by DEBORAH BREWER on 07/06/24 Normal [facility] POLYSOMNOGRAM (PSG)/HOME SLE EP APNEA TEST (HSAT)on 07-05-2024 POLYSOMNOGRAM (PSG)/HOME SLEEP APNEA TEST (HSAT) [facility] [address], [address] [place] [address] ; PSG Study Report Name: HOLDEN CHILDERS Date of Study: 07/05/2024 [facility]#: [id number] Age: 54 (: 1970) ESS: Neck Circ.: 12.5in Height: 65.0in Weight: 172.0lb BMI: 28.6 Referring Provider: PRANAV PENA Sleep History: The patient is a 54 year old female . Medications: Metoprolol, Lipitor, Aspirin, Brilinta, Cyclobenzaprine, Pregabalin, Sertraline, Montelukast, Magnesium Oxide, Flonase, Azelastine, Albuterol, Diclofenac, Ketoconazole, l-lysine, Acyclovir Sleep procedure: PSG 4 or more [facility] ([id number]) Procedure: The study was attended continuously by a product/device technologist. The monitored parameters included: left (E1-M2) and right (E2-M1) EOG, frontal (F3-M2 and F4-M1), central (C3-M2 and C4-M1) and occipital (O1-M2 and O2-M1) EEG, mental and submental EMG, single ECG waveform, snoring, continuous airflow with nasal pressure transducer and thermistor, chest and abdominal effort, oxygen saturation, and body position via video monitoring. Hypopnea definition: The peak signal excursions drop by >= 30% of pre-event baseline using nasal pressure (diagnostic study), PAP device flow (titration study) or an alternative hypopnea sensor (diagnostic study). The duration of the >= 30% drop in signal excursion is >= 10 seconds.Hypopneas are scored with a greater than or equal to 4% oxygen desaturation from pre-event baseline. Respiratory Effort Related Arousal (RERA) definition: 10 seconds characterized by increasing respiratory effort or by flattening of the nasal pressure or PAP flow waveform leading to arousal from sleep when the sequence of breaths does not meet criteria for an apnea or hypopnea. Respiratory Disturbance Index (RDI) definition: RDI = (#apneas + #hypopneas + #RERAs) x 60 / TST. If AHI is 0.0, then RDI = RERA index. SLEEP ARCHITECTURE: The study started at 21:01:42 and ended at 06:36:27. Total sleep time (TST) was 395 minutes resulting in a sleep efficiency of 68.7% (total recording time (TRT) = 575 m). There were 20 awakenings with a total time awake after sleep onset of 138.0 minutes. The sleep latency was 42.0 minutes and the REM latency was 407 minutes. The patient spent 23.7% of sleep time in the supine position. The sleep stage percentages were 16.7% stage N1, 80.5% stage N2, 0.0% stage N3 and 2.8% REM sleep. There were 102 arousals, resulting in an arousal index of 15.5. There were 108 stage shifts. RESPIRATORY DATA: Snoring was noted. There were 7 respiratory events consisting of 0 apneas, 3 hypopneas and 4 RERAs. The apnea-hypopnea index (AHI) was 0.5 and the central-apnea index (ROMINA) was 0.0. The respiratory effort related arousal (RERA) index was 0.6. The respiratory disturbance index (RDI) was 1.1. The mean oxygen saturation during the study was 97.0%, with a minimum oxygen saturation of 90.0%. The patient spent 0.0% (0.0 min) of sleep time with an oxygen saturation below 90% and 0.0% (0.0 min) of sleep time with an oxygen saturation at or below 88%. Jonathan-Gottlieb/Period ic Breathing was not present. Supplemental oxygen was not administered. REM-Time REM AHI NREM-Time NREM AHI Total-Time Total RDI Total AHI Supine 0.0 m -- 93.5 m 0.0 93.5 m 0.6 0.0 Off-Supine 11.0 m 5.5 290.5 m 0.4 301.5 m 1.2 0.6 Total 11.0 m 5.5 384.0 m 0.3 395.0 m 1.1 0.5 MOVEMENT DATA: There were 126 periodic limb movements during sleep, resulting in a PLM-index of 19.1. Of these, 11 movements were associated with arousals, resulting in a PLM-arousal index of 1.7. ECG DATA: The average heart rate during sleep was 64 beats per minute, with a range of 52 to 81. During wake, the heart rate ranged from 30 to 95 beats per minute. The following arrhythmias were observed:, Premature ventricular contractions. ICSD DIAGNOSIS: - hypersomnolence, primary snoring IMPRESSION/RECOMMEND ATIONS: 1. No significant sleep disordered breathing during the study night. 2. Poor sleep efficiency (68.7%) 3. Frequent arousals during the night. 4. Counseling regarding good sleep hygiene practices and adequate sleep duration 5. This study will be followed by an MSLT for further evaluation of hypersomnia. INTERPRETING PHYSICIAN: Arnoldo Rangel MD, MPH I attest that I have performed epoch by epoch review of the entire raw data. Report Digitally Signed By: Arnoldo Rangel (07/15/2024 11:40:57 AM) [facility] CNOVon 06-15-2024 CNOV Office Visit (NEUTWN) HOLDEN CHILDERS ([id number]) 1970 F Date Time Provider Department 06/15/24 4:30 PM RADHA MACDONALD During your visit today, we recorded the following information about you: Pulse Blood pressure Weight Height 78/minute 110/76 60.5 kg 1.651 m Radha Macdonald APRN.DIRECTOR PRODUCT 06/15/2024 4:11 PM Signed Botox Home Instruction: Instruction after botox injection: - If you have any pain or swelling use ice, 20 min on and 20 min off. Do not rub or massage the area for 48 hrs. - If you have any neck stiffness, you may use heat and do stretching exercises. - This should improve over the next 5 days. - If it does not, call our office at [phone] for further instructions. Radha Macdonald APRN.DIRECTOR PRODUCT 06/15/2024 4:28 PM Signed New Onabotulinum Toxin A (BotoxTM) for Migraine Indication: Chronic Intractable Migraine Treatment #: 1 Referral Expiration: 05/13/2025 Number of moderate-severe migraine days/month: 16 Number of mild migraine days/month: 14 Number of headache free days/month: 0 (0 headache-free hours) Migraine severity: 04/03 The patient has been assessed for disorders which could contribute to breathing or swallowing difficulty, and there is no contraindication with PREEMPT Botox. There is no documented allergic reaction/hypersensit ivity to any botulinum toxin and there is no active infection at proposed injection site. HEADACHE SCORES: 05/01/2024 Headache Questions ID Migraine Screener: 3 (Positive) Initial improvement of headache after botox injection at last visit: Not applicable, I did not have a botox injection at my last visit 05/01/2024 Migraine Specific QOL - Higher scores indicate better HRQL Role Function-Restrictive Transformed Score (range: 0-100) 42.86 Role Function-Preventive Transformed Score (range: 0-100) 60 Emotional Function Transformed Score (range: 0-100) 26.67 LMP 04/16/2010 Patient name: Holden Childers : 1970 ALLERGIES Allergen Reactions Codeine Vomiting UNIVERSAL PROTOCOL / SAFETY CHECKLIST Procedure: Onabotulinum toxin A for migraine Informed Consent Consent Obtained: Written [place] Protocol A moment to CARE was completed SIGN IN Personnel directly involved with the procedure wore the appropriate PPE Special Equipment: N/A Patient/Surrogate Stated/Verified: Patient name, Date of , Relevant allergies and Intended procedure TIME OUT Intended patient and procedure match the source document(s) Consent documented and matches the intended procedure No relevant labs, photos, and/or imaging studies were applicable for review. No correct side/site applicable for marking and visibility. No medications required for procedure. No fire risk assessment and interventions applicable. No implant(s) inserted. SIGN OUT No specimen collected. No instruments, equipment or retained foreign bodies applicable. Post-procedure follow-up management communicated and Plan of Care Visit completed when applicable Written Consent Obtained: Written LOT #: [id number] Expiration Date: Month: 2 Year: 2026 Injection Sites Left (Units) Left (Sites) Right (Units) Right (Sites) TOTAL (Units) Fur Tanner 5 1 5 1 10 Procerus Units: 5 Sites: 1 5 Frontalis 10 2 10 2 20 Temporalis 20 4 20 4 40 Occipitalis 15 3 15 3 30 Cervical PSP 10 2 10 2 20 Trapezius 15 3 15 3 30 Total Units used: 155 Total Units wasted: 45 Prior Therapies Aspirin Atenolol Bupropion Cyclobenzaprine Duloxetine Gabapentin Magnesium oxide Meloxicam Metoprolol succinate Naproxen Oxycodone/acetaminop hen Sertraline Propranolol Pregabalin Topiramate Tramadol Amitriptyline Cannot use triptan medications due to history of [place] this year. Holden Childers is a 54 year old female seen today for her first round of Botox for migraine. Unaccompanied. Procedure discussed. Consent obtained. She tolerated the procedure well with no immediate adverse reactions. Radha Macdonald APRN.DIRECTOR PRODUCT Referring Provider: RADHA MACDONALD [[id number]] Allergies As of Date: 06/15/2024 Noted Allergy Reaction CODEINE 12/18/2023 11 - Vomiting Date Reviewed: 06/15/2024 Reviewed by: Maxine Blair MA - Fully Assessed Reason for Visit: Botox Injection [373] Primary Visit Diagnosis:Intractabl e chronic migraine without aura and without status migrainosus [G43.719] Order(s):[] onabotulinum toxin type A 200 Units injection (BOTOX)Disp: Rfl: Prescriptions as of 06/15/2024 - cholecalciferol (VITAMIN D-3) 5,000 unit tab Take 5,000 Units by mouth once daily. - DULoxetine (CYMBALTA) 30 mg capsule Take 1 capsule by mouth once daily. - acyclovir (ZOVIRAX) 400 mg tablet TAKE 1 TABLET BY MOUTH TWICE A DAY NEEDED FOR COLD SORES - azelastine 0.1% nasal spray Use 1 [place] in each nostril two times a day. - cyanocobalamin (VITAMIN B-12) 500 mcg tablet Take b (more content not included)... Normal [facility] Internal Medicine Office Vis shikha 06-14-2024 Internal Medicine Office Visit [facility] [address] [place] [address] [place] [address] OFFICE VISIT Date of Service: 06/14/24 MR#: [id number] Acct: [id number] Name: HOLDEN CHILDERS Rep #: [id number] : 1970 Provider: Dr. 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 SENT Chief Complaint: est care Project Director Required: No Accompanied by: Self Is patient in pain?: No Allergies codeine Allergy (Intermediate, Verified 06/14/24 08:10) Vomiting Medications ???Medication ???Instructions ???Recorded ???Confirmed ???Type acyclovir 400 mg tablet 400 mg PO QDAY 06/14/24 06/14/24 History albuterol sulfate 90 mcg/actuation 2 puff inhalation Q6H PRN 06/14/24 06/14/24 History aerosol inhaler aspirin 81 mg tablet,delayed 81 mg PO QDAY 06/14/24 06/14/24 History release (Adult Aspirin Regimen) atorvastatin 40 mg tablet (Lipitor) 40 mg PO QDAY 06/14/24 06/14/24 History azelastino .Route 06/14/24 History biotin 5 mg capsule 5 mg PO QDAY 06/14/24 06/14/24 History cholecalciferol (vitamin D3) 25 25 mcg PO QDAY 06/14/24 06/14/24 History mcg (1,000 unit) capsule cyclobenzaprine 5 mg tablet 5 mg PO QHS 06/14/24 06/14/24 History diclofenac sodium 1 % topical gel 2 g topical ONCE 06/14/24 06/14/24 History duloxetine 30 mg capsule,delayed 30 mg PO BID 3 months #180 caps 06/14/24 06/14/24 Rx release fluticasone propionate 50 1 spray intranasal QDAY 06/14/24 06/14/24 History mcg/actuation nasal spray,suspension (Flonase Allergy Relief) ketoconazole 2 % topical foam 1 applic topical BID 06/14/24 06/14/24 History lysine 1,000 mg tablet 1,000 mg PO QDAY 06/14/24 06/14/24 History magnesium 200 mg tablet 400 mg PO BID 06/14/24 06/14/24 History metoprolol tartrate 25 mg tablet 25 mg PO QDAY 06/14/24 06/14/24 History montelukast 10 mg tablet 10 mg PO QDAY 06/14/24 06/14/24 History ticagrelor 90 mg tablet (Brilinta) 90 mg PO BID 06/14/24 06/14/24 History PFSH Medical History (Updated 06/14/24 @ 13:[address] Bonifacio Bell MD) Migraine CAD (coronary artery disease) Anxiety and depression Health care maintenance Fibromyalgia Vision problems GERD (gastroesophageal reflux disease) Irritable bowel syndrome Recurrent infections High blood cholesterol Heart failure High blood pressure Hearing problem Heart disease Head ache Gastrointestinal problem Emotional problems Carpal tunnel syndrome History of blood transfusion Back pain Seasonal allergies Surgical History (Updated 06/14/24 @ 08:19 by Meagan Jaquez MA) History of hysterectomy H/O wisdom tooth extraction S/P foot surgery Hx of tonsillectomy S/P appendectomy Family History (Updated 06/14/24 @ 08:17 by Meagan Jaquez MA) Father Angina at rest Myocardial infarction, Onset Age: 70 High cholesterol Mother History of blood transfusion Anxiety Hypertension Aunt Cancer breast Grandfather Myocardial infarction, Onset Age: 70 Sister Asthma Social History (Updated 06/14/24 @ 08:21 by Meagan Jaquez MA) household members: other details: ex in laws housing: house current occupational status: employed 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 Also has some concerns. She reports a history of fibromyalgia. Also history of anxiety and depression and chronic migraine. Follows up with neurology. She was started on duloxetine predominantly for her chronic migraine but is also on Zoloft at 50 mg daily. Still has concerns with fatigue and allover pain. Also reports intermittent episodes of facial pressure, body aches and feeling of unwell. CT sinus done during one of these episodes not suggestive of sinusitis. Follows up with a director alumni relations at the [facility] History of coronary disease status post stent earlier in the year. Follows up closely with her leasing machine tender. Currently on Lipitor, Brilinta and aspirin. Also on metoprolol. She states that she quit smoking after this event. No chest pain, palpitati (more content not included)... [facility]NPNon 05-28-2024 [facility] Telephone (AKPULS) HOLDEN CHILDERS ([id number]) 1970 F Date Time Provider Department 05/28/24 PRANAV PENA AKPULS During your visit today, we recorded the following information about you: Osman Dukes MA 05/28/2024 2:54 PM Addendum Patient did not complete PSG and MSLT. She left in the middle of the night. Can you place new order for PSG so that I can reschedule her? Thank you Ordered. MD Jean Holden Albert Byoung Sang, MD 06/08/2024 2:08 PM Signed Addended by: PRANAV PENA on: 06/08/2024 02:08 PM Modules accepted: Orders Allergies As of Date: 05/28/2024 Noted Allergy Reaction CODEINE 12/18/2023 11 - Vomiting Date Reviewed: 04/16/2024 Reviewed by: Ilana Alanis OCCA - Fully Assessed Reason for Visit: Orders [681] Cmt: Patient did not complete PSG and MSLT. She left in the middle of the night. Can you place new order for PSG so that I can reschedule her? Thank you Primary Visit Diagnosis:Hypersomni a [G47.10] Order(s):POLYSOMNOGR AM (PSG) [7001780] Order #: [id number] FUTURE MULTIPLE SLEEP LATENCY TEST [[id number]] Order #: [id number] FUTURE TOXICOLOGY SCREEN, ROUTINE URINE [SQUTOX2] Order #: [id number] FUTURE Prescriptions as of 06/08/2024 - cholecalciferol (VITAMIN D-3) 5,000 unit tab Take 5,000 Units by mouth once daily. - DULoxetine (CYMBALTA) 30 mg capsule Take 1 capsule by mouth once daily. - acyclovir (ZOVIRAX) 400 mg tablet TAKE 1 TABLET BY MOUTH TWICE A DAY NEEDED FOR COLD SORES - azelastine 0.1% nasal spray Use 1 [place] in each nostril two times a day. - cyanocobalamin (VITAMIN B-12) 500 mcg tablet Take by mouth. - VOLTAREN ARTHRITIS PAIN 1 % topical gel - sodium fluoride (PREVIDENT 5000 PLUS) 1.1 % dental cream USE AT BEDTIME - ketoconazole (NIZORAL) 2 % cream APPLY TOPICALLY TO THE AFFECTED AREA DAILY - traMADol (ULTRAM) 50 mg tablet - metoprolol succinate ER (TOPROL XL) 50 mg 24 hr tablet - atorvastatin (LIPITOR) 40 mg tablet Take 1 tablet by mouth every afternoon. - aspirin 81 mg chewable tablet CHEW 1 TABLET BY MOUTH EVERY DAY WITH A MEAL - ticagrelor (BRILINTA) 90 mg tablet Take by mouth. - pregabalin (LYRICA) 50 mg capsule Take 50 mg by mouth three times a day. - sertraline (ZOLOFT) 50 mg tablet Take 50 mg by mouth three times a day. - LYSINE ORAL Take by mouth. - fluticasone propionate (FLONASE NASAL) Use in the nose. - albuterol sulfate 90 mcg/actuation breath activated powder inhaler Inhale as instructed. - cyclobenzaprine (FLEXERIL) 5 mg tablet Take 1 tablet by mouth daily at bedtime. - magnesium oxide (MAG-OX) 400 mg (241.3 mg magnesium) tablet Take 1 tablet by mouth twice daily. - montelukast (SINGULAIR) 10 mg tablet Take 1 tablet by mouth daily at bedtime. Problem List As Of Date 05/28/2024 Noted Resolved Dysplasia of Cervix [N87.9] 02/01/2010 Fibromyalgia [M79.7] 08/14/2012 Seasonal allergic rhinitis due to pollen [J30.1]07/12/2022 Chronic neck and back pain [M54.2, M54.9, G89.2*07/12/2022 Sinus headache [R51.9] 10/17/2022 Encounter Status:[facility]SLL[facility] HOLDEN CHILDERS ([id number]) 1970 F Date Time Provider Department 05/26/24 8:30 PM [facility] During your visit today, we recorded the following information about you: Referring Provider: IRIS GONZALEZ [[id number]] Allergies As of Date: 05/26/2024 Noted Allergy Reaction CODEINE 12/18/2023 11 - Vomiting Date Reviewed: 04/16/2024 Reviewed by: Ilana Alanis OCCA - Fully Assessed Reason for Visit: Apnea [1159] Visit Diagnosis:At risk for narcolepsy [Z91.89] Order(s):POLYSOMNOGR AM (PSG) [[id number]] Order #: [id number] Prescriptions as of 05/27/2024 - cholecalciferol (VITAMIN D-3) 5,000 unit tab Take 5,000 Units by mouth once daily. - DULoxetine (CYMBALTA) 30 mg capsule Take 1 capsule by mouth once daily. - acyclovir (ZOVIRAX) 400 mg tablet TAKE 1 TABLET BY MOUTH TWICE A DAY NEEDED FOR COLD SORES - azelastine 0.1% nasal spray Use 1 [place] in each nostril two times a day. - cyanocobalamin (VITAMIN B-12) 500 mcg tablet Take by mouth. - VOLTAREN ARTHRITIS PAIN 1 % topical gel - sodium fluoride (PREVIDENT 5000 PLUS) 1.1 % dental cream USE AT BEDTIME - ketoconazole (NIZORAL) 2 % cream APPLY TOPICALLY TO THE AFFECTED AREA DAILY - traMADol (ULTRAM) 50 mg tablet - metoprolol succinate ER (TOPROL XL) 50 mg 24 hr tablet - atorvastatin (LIPITOR) 40 mg tablet Take 1 tablet by mouth every afternoon. - aspirin 81 mg chewable tablet CHEW 1 TABLET BY MOUTH EVERY DAY WITH A MEAL - ticagrelor (BRILINTA) 90 mg tablet Take by mouth. - pregabalin (LYRICA) 50 mg capsule Take 50 mg by mouth three times a day. - sertraline (ZOLOFT) 50 mg tablet Take 50 mg by mouth three times a day. - LYSINE ORAL Take by mouth. - fluticasone propionate (FLONASE NASAL) Use in the nose. - albuterol sulfate 90 mcg/actuation breath activated powder inhaler Inhale as instructed. - cyclobenzaprine (FLEXERIL) 5 mg tablet Take 1 tablet by mouth daily at bedtime. - magnesium oxide (MAG-OX) 400 mg (241.3 mg magnesium) tablet Take 1 tablet by mouth twice daily. - montelukast (SINGULAIR) 10 mg tablet Take 1 tablet by mouth daily at bedtime. Problem List As Of Date 05/26/2024 Noted Resolved Dysplasia of Cervix [N87.9] 02/01/2010 Fibromyalgia [M79.7] 08/14/2012 Seasonal allergic rhinitis due to pollen [J30.1]07/12/2022 Chronic neck and back pain [M54.2, M54.9, G89.2*07/12/2022 Sinus headache [R51.9] 10/17/2022 Encounter Status:Closed by CHIOMA ROACH on 05/27/24 [facility] POLYSOMNOGRAM (PSG)/HOME SLE EP APNEA TEST (HSAT)on 05-26-2024 POLYSOMNOGRAM (PSG)/HOME SLEEP APNEA TEST (HSAT) [facility] [address] [place] [address], [place] [address] ; PSG Study Report Name: HOLDEN CHILDERS Date of Study: 05/26/2024 CCF#: [id number] Age: 54 (: 1970) ESS: Neck Circ.: 12.5in Height: 65.0in Weight: 172.0lb BMI: 28.6 Referring Provider: IRIS GONZALEZ Sleep History: The patient is a 54 year old female . Medications: Metoprolol, Lipitor, Aspirin, Brilinta, Cyclobenzaprine, Pregabalin, Sertraline, Montelukast, Magnesium Oxide, Flonase, Azelastine, Albuterol, Diclofenac, Ketoconazole, l-lysine, Acyclovir, Cymbalta Sleep procedure: PSG 4 or more [facility] ([id number]) Procedure: The study was attended continuously by a product/device technologist. The monitored parameters included: left (E1-M2) and right (E2-M1) EOG, frontal (F3-M2 and F4-M1), central (C3-M2 and C4-M1) and occipital (O1-M2 and O2-M1) EEG, mental and submental EMG, single ECG waveform, snoring, continuous airflow with nasal pressure transducer and thermistor, chest and abdominal effort, oxygen saturation, and body position via video monitoring. Hypopnea definition: The peak signal excursions drop by >= 30% of pre-event baseline using nasal pressure (diagnostic study), PAP device flow (titration study) or an alternative hypopnea sensor (diagnostic study). The duration of the >= 30% drop in signal excursion is >= 10 seconds.Hypopneas are scored with a greater than or equal to 4% oxygen desaturation from pre-event baseline. Respiratory Effort Related Arousal (RERA) definition: 10 seconds characterized by increasing respiratory effort or by flattening of the nasal pressure or PAP flow waveform leading to arousal from sleep when the sequence of breaths does not meet criteria for an apnea or hypopnea. Respiratory Disturbance Index (RDI) definition: RDI = (#apneas + #hypopneas + #RERAs) x 60 / TST. If AHI is 0.0, then RDI = RERA index. SLEEP ARCHITECTURE: The study started at 21:39:08 and ended at 01:11:28. Total sleep time (TST) was 6 minutes resulting in a sleep efficiency of 2.8% (total recording time (TRT) = 212 m). There were 2 awakenings with a total time awake after sleep onset of 42.0 minutes. The sleep latency was 164.5 minutes and the REM latency was 0 minutes. The patient spent 0.0% of sleep time in the supine position. The sleep stage percentages were 58.3% stage N1, 41.7% stage N2, 0.0% stage N3 and 0.0% REM sleep. There were 1 arousals, resulting in an arousal index of 10.0. There were 6 stage shifts. RESPIRATORY DATA: Snoring was not noted. There were 0 respiratory events consisting of 0 apneas [0 obstructive (0.0%), 0 mixed (0.0%), and 0 central (0.0%)], 0 hypopneas and 0 RERAs. The apnea-hypopnea index (AHI) was 0.0 and the central-apnea index (ROMINA) was 0.0. The respiratory effort related arousal (RERA) index was 0.0. The respiratory disturbance index (RDI) was 0.0. The mean oxygen saturation during the study was 99.0%, with a minimum oxygen saturation of 97.0%. The patient spent 0.0% (0.0 min) of sleep time with an oxygen saturation below 90% and 0.0% (0.0 min) of sleep time with an oxygen saturation at or below 88%. Jonathan-Gottlieb/Period ic Breathing was not present. Supplemental oxygen was not administered. REM-Time REM AHI NREM-Time NREM AHI Total-Time Total RDI Total AHI Supine 0.0 m -- 0.0 m -- 0.0 m -- -- Off-Supine 0.0 m -- 6.0 m 0.0 6.0 m 0.0 0.0 Total 0.0 m -- 6.0 m 0.0 6.0 m 0.0 0.0 MOVEMENT DATA: No abnormal behavior was noted. There were 4 periodic limb movements during sleep, resulting in a PLM-index of 40.0. Of these, 1 movements were associated with arousals, resulting in a PLM-arousal index of 10.0. ECG DATA: The average heart rate during sleep was 67 beats per minute, with a range of 62 to 72. During wake, the heart rate ranged from 63 to 87 beats per minute. No arrhythmias were noted. ICSD DIAGNOSIS: Hypersomnia, Unspecified [G47.10] Insomnia NOS [G47.00] IMPRESSION/RECOMMEND ATIONS: Causes of daytime sleepiness include primary sleep disorders (sleep apnea, central hypersomnias, and circadian rhythm disorders), medical and psychiatric disorders, insufficient sleep time, and medication effects. Clinical correlation is advised. The patient did not sleep during most of the test. The patient should be educated on good sleep hygiene. The patient should take care with driving, if sleepy. Follow up with referring provider or sleep specialist. INTERPRETING PHYSICIAN: Pranav Pena MD I attest that I have performed epoch by epoch review of the entire raw data. Report Digitally Signed By: Pranav Pena MD (06/08/2024 9:44:05 AM) [facility] CNOVon 05-04-2024 CNOV Office Visit (NEUTWN) HOLDEN CHILDERS ([id number]) 1970 F Date Time Provider Department 05/04/24 7:30 AM RADHA MACDONALD During your visit today, we recorded the following information about you: Radha Macdonald APRN.DIRECTOR PRODUCT 05/04/2024 11:12 AM Signed [facility] for General Neurology New Patient visit Ms. Childers is a 54 year old female who has a history of endometriosis, fibromyalgia, hypertension, SHREE. Consultation requested by Dr. Anthony Nichols for an opinion regarding facial pain, headache disorder. My final recommendations will be communicated back to the requesting physician by way of shared Medical record or letter to requesting physician via US mail. Right handed. Unaccompanied. Current Headache treatment Preventative: reports that she used to take Topamax in 2016 for her headaches but did not find much relief. Metoprolol succinate (reports for AZ in October), magnesium oxide (reports taking for fibromyalgia) Abortive: Tylenol and tramadol Medications effective? Yes # of doses of abortive medications per month: reports that she takes about twice per week for headaches. Suspects that she was prescribed tramadol in 2009 for her fibromyalgia and was taking daily but has since reduced. Takes cyclobenzaprine each night at bedtime for prior surgery to foot. Was on meloxicam but had to stop after having AZ. Onset: reports that she has always been treated for sinus infections for years. Has headaches and fatigue. Reports that sinuses are finally cleared and she has seen 5 ENT providers. Total headache days per month: almost daily Total headache attacks per month: 2 per week Headache free days: Rare Duration of attacks: 1 to 2 days. Severity of headaches? 04/03 Onset to Peak: stay the same intensity. Starts bad. Location: once a month can have bilateral facial pain beneath the eyes in the cheeks and in the back of the head/neck. Otherwise reports that headache pain can cause pain all over her body. Aura: possible spots in the vision that she notices after onset of headache, reports short lasting and periodic, unable to determine how long they last. Accompanying symptoms: blurred vision, dizziness, photophobia. No ptosis, lacrimation, facial drooping. Quality:pressure in face under eyes. Aching around the side of head/neck. Worse with activity: Once per month may have to go lie down. Time missed from work or school: once per month can miss 1 to 2 days of work because she will try to sleep off her severe headache. Most common time of day for headache to begin:typically wakes with them. Positional changes: No Prodrome: None noticed. Triggers: None known. Cough/sneeze/valsalv a as trigger: No Headache Risk Factors: Headache risk factors and/or co-morbidities + Neck Pain + Back Pain- low back pain for the last couple of years. Denies History of Motor Vehicle Accident + Fibromyalgia Denies History of Traumatic Brain Injury and/or Concussion Denies History of Syncope or loss of consciousness. Tobacco Use: quit smoking. Vapes. Alcohol Use: denies Caffeine: coffee 2 to 3 cups each day Other substances: denies Migraine or other headaches in the family: none Aneurysms in a first degree relative: none Brain tumors in the family: No Other neurological illness in the family: mother is having symptoms of dementia and is currently hospitalized for weakness, dizziness, passing out. Prior Therapies Aspirin Atenolol Bupropion Cyclobenzaprine Duloxetine Gabapentin Magnesium oxide Meloxicam Metoprolol succinate Naproxen Oxycodone/acetaminop hen Sertraline Propranolol Pregabalin Topiramate Tramadol Amitriptyline Interested in acupuncture if unable to get Botox approved. Current Medications: cholecalciferol (VITAMIN D-3) 5,000 unit tab Take 5,000 Units by mouth once daily. acyclovir (ZOVIRAX) 400 mg tablet TAKE 1 TABLET BY MOUTH TWICE A DAY NEEDED FOR COLD SORES azelastine 0.1% nasal spray Use 1 [place] in each nostril two times a day. cyanocobalamin (VITAMIN B-12) 500 mcg tablet Take by mouth. VOLTAREN ARTHRITIS PAIN 1 % topical gel sodium fluoride (PREVIDENT 5000 PLUS) 1.1 % dental cream USE AT BEDTIME traMADol (ULTRAM) 50 mg tablet metoprolol succinate ER (TOPROL XL) 50 mg 24 hr tablet atorvastatin (LIPITOR) 40 mg tablet Take 1 tablet by mouth every afternoon. aspirin 81 mg chewable tablet CHEW 1 TABLET BY MOUTH EVERY DAY WITH A MEAL ticagrelor (BRILINTA) 90 mg tablet Take by mouth. sertraline (ZOLOFT) 50 mg tablet Take 50 mg by mouth three times a day. LYSINE ORAL Take by mouth. fluticasone propionate (FLONASE NASAL) Use in the nose. albuterol sulfate 90 mcg/actuation breath activated powder inhaler Inhale as instructed. cyclobenzaprine (FLEXERIL) 5 mg tablet Take 1 tablet by mouth daily at bedtime. magnesium oxide (MAG-OX (more content not included)... Normal [facility] CNOVon 04-16-2024 CNOV Office Visit (OTOLTW) LISETHHOLDEN R ([id number]) 1970 F Date Time Provider Department 04/16/24 9:45 AM ANTHONY NICHOLS OTOLTW During your visit today, we recorded the following information about you: Anthony Nichols MD 04/22/2024 2:45 PM Signed SECTION OF RHINOLOGY, SINUS AND SKULL BASE SURGERY Head and Neck [place], [facility] INITIAL VISIT NOTE This patient is a new patient. They are seen at the request of: No referring provider defined for this encounter. CC: CRS and CT scan HPI: Holden Atwood Childers is a 54 year old female presenting for evaluation of CRS. Pt was last seen my MINERVA Doty on 03/30/24 reporting sinus pain and pressure located under the eyes and anabaptism. CT sinus was taken on 04/13/24. Has been using Flonase, Astelin, and saline rinse daily for the last 2 months. Pt feels that the past few years has had symptoms of pain and pressure and will feel extremely fatigued. Every few months. Pt will have ear pain every day and headache every day. Pt was seen in 2016 was seen by a neurologists and was treated for migraines. Pt will have these episodes about 2-4 days every few months. She is fatigued during these episodes and has to call off work. Pt had an excruciating headache the day of her CT scan. Has been taking time off of work. No nasal symptoms. CT sinus IMPRESSION 04/13/24: Minimal scattered mucosal thickening in the bilateral paranasal sinuses with no air-fluid levels identified. The paranasal sinus drainage pathways are patent. SNOT-22 Nasal Score Ear/Facial Score Sleep Score Function Score Emotion Score Total Score 03/29/2024 16 14 12 13 7 62 01/24/2024 9 15 11 11 5 51 PAST MEDICAL HISTORY: PAST MEDICAL HISTORY 09/2008: Abnormal Pap smear Comment: LGSIL and Positive HPV 04/2009: Abnormal Pap smear Comment: HGSIL 12/13/2008: Encounter for insertion or removal of intrauterine contraceptive device Comment: Mirena No date: Endometriosis 08/14/2012: Fibromyalgia No date: Hypertension No date: Palpitations 05/15/2010: S/P SHREE (total abdominal hysterectomy) PAST SURGICAL HISTORY: PAST SURGICAL HISTORY No date: APPENDECTOMY 06/21/2009: CONIZATION CERVIX W/WO DANDC RPR ELTRD EXC Comment: (LEEP) 12/13/2008: INSERT INTRAUTERINE DEVICE Comment: Mirena 03/22/2010: IUD REMOVAL No date: LAPS ABD PRTMANDOMENTUM DX W/WO SPEC BR/WA SPX Comment: Laparoscopy No date: TONSILLECTOMY PRIMARY/SECONDARY Comment: Tonsillectomy 05/15/2010: TOTAL ABDOMINAL HYSTERECT W/WO RMVL TUBE OVARY Comment: Dr. Dodd; Dysplasia, Metrorrhagia, Dysmenorrhea 10/25/2023: TRANSV CAROTID STENT PLACEMT Comment: [place] 02/01/2010: VAGINOSCOPY FAMILY HISTORY Problem Relation Age of Onset Hypertension Mother Coronary Artery Disease Maternal Grandfather Coronary Artery Disease Paternal Grandfather Social History Tobacco Use Smoking status: Former Current packs/day: 0.00 Average packs/day: 0.8 packs/day for 27.0 years (20.3 ttl pk-yrs) Types: Cigarettes Start date: 10/24/1996 Quit date: 10/25/2023 Years since quittin.4 Smokeless tobacco: Never Tobacco comments: Started smoking age 26 Vaping Use Vaping status: Some Days Substances: Nicotine, Flavoring Substance Use Topics Alcohol use: No Drug use: No MEDICATIONS: Current Outpatient Medications Medication Sig acyclovir (ZOVIRAX) 400 mg tablet TAKE 1 TABLET BY MOUTH TWICE A DAY NEEDED FOR COLD SORES azelastine 0.1% nasal spray Use 1 [place] in each nostril two times a day. cyanocobalamin (VITAMIN B-12) 500 mcg tablet Take by mouth. VOLTAREN ARTHRITIS PAIN 1 % topical gel sodium fluoride (PREVIDENT 5000 PLUS) 1.1 % dental cream USE AT BEDTIME ketoconazole (NIZORAL) 2 % cream APPLY TOPICALLY TO THE AFFECTED AREA DAILY traMADol (ULTRAM) 50 mg tablet metoprolol succinate ER (TOPROL XL) 50 mg 24 hr tablet atorvastatin (LIPITOR) 40 mg tablet Take 1 tablet by mouth every afternoon. aspirin 81 mg chewable tablet CHEW 1 TABLET BY MOUTH EVERY DAY WITH A MEAL ticagrelor (BRILINTA) 90 mg tablet Take by mouth. pregabalin (LYRICA) 50 mg capsule Take 50 mg by mouth three times a day. sertraline (ZOLOFT) 50 mg tablet Take 50 mg by mouth three times a day. LYSINE ORAL Take by mouth. fluticasone propionate (FLONASE NASAL) Use in the nose. albuterol sulfate 90 mcg/actuation breath activated powder inhaler Inhale as instructed. cyclobenzaprine (FLEXERIL) 5 mg tablet Take 1 tablet by mouth daily at bedtime. magnesium oxide (MAG-OX) 400 mg (241.3 mg magnesium) tablet Take 1 tablet by mouth twice daily. montelukast (SINGULAIR) 10 mg tablet Take 1 tablet by mouth daily at bedtime. No current facility-administere d medications for this visit. ALLERGIES: ALLERGIES Allergen Reactions Codeine Vomiting PHYSICAL EXAM: GENERAL: No acute distress, calm and cooperative, alert and oriented. HEAD (more content not included)... Normal [facility] CT SINUS WO IVCONon 04-13-[address] SINUS WO IVCON * * *Final Report* * * DATE OF EXAM: Apr 13 2024 8:31AM [facility] 0488 - CT SINUS WO IVCON / PROCEDURE REASON: Chronic sinusitis, unspecified location * * * * Physician Interpretation * * * * EXAMINATION: CT SINUS WO IVCON CLINICAL HISTORY: Chronic sinusitis TECHNIQUE: Spiral high resolution axial unenhanced CT images were obtained through the paranasal sinuses with sagittal, coronal reconstructions. MQ: CTSI_1 CT Radiation dose: Integrated Dose-Length Product (DLP) for this visit = 155 mGy*cm. CT Dose Reduction Employed: Automated exposure control(AEC) and iterative recon COMPARISON: None. RESULT: Post-Surgical Findings: None Sinus Chambers: Minimal mucosal thickening is present within the bilateral inferior left greater than right maxillary sinuses as well as the bilateral anterior ethmoid sinuses. Tiny retention cyst is present in the left maxillary sinus. No air-fluid levels. The bilateral paranasal sinus drainage pathways are patent. Isa cells contribute to narrowing of the bilateral maxillary sinus infundibula. Nasal Cavities: Rightward nasal septal deviation with mucosal hypertrophy along the bilateral inferior nasal turbinates. Other: The visualized mastoid air cells and middle ear cavities are clear. The soft tissues of the face and orbits are within normal limits. Localizer images: Unremarkable. IMPRESSION: Minimal scattered mucosal thickening in the bilateral paranasal sinuses with no air-fluid levels identified. The paranasal sinus drainage pathways are patent. Chemical Checker: ROSMERY Transcribe Date/Time: Apr 13 2024 8:49A Dictated by : MANDO QUINTANILLA MD This examination was interpreted and the report reviewed and electronically signed by: MANDO QUINTANILLA MD on Apr 13 2024 8:54AM EST [id number] Normal [facility] CT Sinuses WO contraston IMPRESSION: Minimal scattered mucosal thickening in the bilateral paranasal sinuses with no air-fluid levels identified. The paranasal sinus drainage pathways are patent. Chemical Checker: [facility] Transcribe Date/Time: Apr 13 2024 8:49A Dictated by : MANDO QUINTANILLA MD This examination was interpreted and the report reviewed and electronically signed by: MANDO QUINTANILLA MD on Apr 13 2024 8:54AM EST DIVISION OF RADIOLOGY * * *Final Report* * * DATE OF EXAM: Apr 13 2024 8:31AM [facility] 0488 - CT SINUS WO IVCON / PROCEDURE REASON: Chronic sinusitis, unspecified location * * * * Physician Interpretation * * * * EXAMINATION: CT SINUS WO IVCON CLINICAL HISTORY: Chronic sinusitis TECHNIQUE: Spiral high resolution axial unenhanced CT images were obtained through the paranasal sinuses with sagittal, coronal reconstructions. MQ: CTSI_1 CT Radiation dose: Integrated Dose-Length Product (DLP) for this visit = 155 mGy*cm. CT Dose Reduction Employed: Automated exposure control(AEC) and iterative recon COMPARISON: None. RESULT: Post-Surgical Findings: None Sinus Chambers: Minimal mucosal thickening is present within the bilateral inferior left greater than right maxillary sinuses as well as the bilateral anterior ethmoid sinuses. Tiny retention cyst is present in the left maxillary sinus. No air-fluid levels. The bilateral paranasal sinus drainage pathways are patent. Isa cells contribute to narrowing of the bilateral maxillary sinus infundibula. Nasal Cavities: Rightward nasal septal deviation with mucosal hypertrophy along the bilateral inferior nasal turbinates. Other: The visualized mastoid air cells and middle ear cavities are clear. The soft tissues of the face and orbits are within normal limits. Localizer images: Unremarkable. DIVISION OF RADIOLOGY Provider, [facility] - 04/13/2024 * * *Final Report* * * DATE OF EXAM: Apr 13 2024 8:31AM [facility] 0488 - CT SINUS WO IVCON / PROCEDURE REASON: Chronic sinusitis, unspecified location * * * * Physician Interpretation * * * * EXAMINATION: CT SINUS WO IVCON CLINICAL HISTORY: Chronic sinusitis TECHNIQUE: Spiral high resolution axial unenhanced CT images were obtained through the paranasal sinuses with sagittal, coronal reconstructions. MQ: CTSI_1 CT Radiation dose: Integrated Dose-Length Product (DLP) for this visit = 155 mGy*cm. CT Dose Reduction Employed: Automated exposure control(AEC) and iterative recon COMPARISON: None. RESULT: Post-Surgical Findings: None Sinus Chambers: Minimal mucosal thickening is present within the bilateral inferior left greater than right maxillary sinuses as well as the bilateral anterior ethmoid sinuses. Tiny retention cyst is present in the left maxillary sinus. No air-fluid levels. The bilateral paranasal sinus drainage pathways are patent. Isa cells contribute to narrowing of the bilateral maxillary sinus infundibula. Nasal Cavities: Rightward nasal septal deviation with mucosal hypertrophy along the bilateral inferior nasal turbinates. Other: The visualized mastoid air cells and middle ear cavities are clear. The soft tissues of the face and orbits are within normal limits. Localizer images: Unremarkable. IMPRESSION IMPRESSION: Minimal scattered mucosal thickening in the bilateral paranasal sinuses with no air-fluid levels identified. The paranasal sinus drainage pathways are patent. Chemical Checker: [facility] Transcribe Date/Time: Apr 13 2024 8:49A Dictated by : MANDO QUINTANILLA MD This examination was interpreted and the report reviewed and electronically signed by: MANDO QUINTANILLA MD on Apr 13 2024 8:54AM EST [facility] Radiology Study observation (narrative) Jayme babb [facility] CT Sinuses WO contrastOrdere d By: [facility] Provider on 04-13-2024 [facility] CNOVon 04-08-2024 CNOV Office Visit (PLMCYM) HOLDEN CHILDERS ([id number]) 1970 F Date Time Provider Department 04/08/24 9:00 AM IRIS GONZALEZ PLYM During your visit today, we recorded the following information about you: Pulse Blood pressure Weight Height 64/minute 100/70 57.2 kg 1.651 m Iris Gonzalez PA-C 04/08/2024 10:45 AM Signed [facility] DEPARTMENT OF PULMONARY MEDICINE Date: April 08, 2024 Patient Name: Holden Childers PRIMARY CARE PROVIDER: Bautista Manzano MD REASON FOR VISIT: Patient presents with: Sleep Apnea HPI: Follow up visit. Dr. Arita last saw the patient on 12/18/2023. PMH: [place] in October 2023, s/p PCI of the RCA at [place], HTN, fatigue, fibromyalgia, and anxiety. Former 20.25 pack year smoker, quit 10/2023. Patient had a PSG done 03/09/2024 secondary to excessive daytime sleepiness. No sleep related breathing disorders present. AHI 3.1. Today, patient complains of excessive daytime sleepiness. If she does not have to go to work she states she could sleep for 20 hours. No issues with falling asleep. Typically goes to bed around 10-10:30 am. Wakes at 5 am. Has a hard time waking and getting out of bed in the morning. No snoring. Frequently naps if she doesn't have to work. Does not feel refreshed after napping. Has vivid dreams at night, but not while napping. Feels tired while driving. 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 IMMUNIZATIONS: There is no immunization history on file for this patient. PAST MEDICAL HISTORY 09/2008: Abnormal Pap smear Comment: LGSIL and Positive HPV 04/2009: Abnormal Pap smear Comment: HGSIL 12/13/2008: Encounter for insertion or removal of intrauterine contraceptive device Comment: Mirena No date: Endometriosis 08/14/2012: Fibromyalgia No date: Hypertension No date: Palpitations 05/15/2010: S/P SHREE (total abdominal hysterectomy) PAST SURGICAL HISTORY No date: APPENDECTOMY 06/21/2009: CONIZATION CERVIX W/WO DANDC RPR ELTRD EXC Comment: (LEEP) 12/13/2008: INSERT INTRAUTERINE DEVICE Comment: Mirena 03/22/2010: IUD REMOVAL No date: LAPS ABD PRTMANDOMENTUM DX W/WO SPEC BR/WA SPX Comment: Laparoscopy No date: TONSILLECTOMY PRIMARY/SECONDARY Comment: Tonsillectomy 05/15/2010: TOTAL ABDOMINAL HYSTERECT W/WO RMVL TUBE OVARY Comment: Dr. Dodd; Dysplasia, Metrorrhagia, Dysmenorrhea 10/25/2023: TRANSV CAROTID STENT PLACEMT Comment: [place] 02/01/2010: VAGINOSCOPY Social History Tobacco Use Smoking status: Former Packs/day: 0.75 Years: 27.00 Additional pack years: 0.00 Total pack years: 20.25 Types: Cigarettes Quit date: 10/25/2023 Years since quittin.4 Smokeless tobacco: Never Tobacco comments: Started smoking age 26 Vaping Use Vaping Use: Some days Substances: Nicotine, Flavoring Substance Use Topics Alcohol use: No Drug use: No FAMILY HISTORY Problem Relation Age of Onset Hypertension Mother Coronary Artery Disease Maternal Grandfather Coronary Artery Disease Paternal Grandfather REVIEW OF SYSTEMS: General: Denies fever/chills, malaise, unintentional weight loss HEENT: Denies headaches, nosebleeds, congestion Neck: Denies lumps, pain, significant neck swelling Respiratory: See HPI Cardiovascular: Denies chest pain, syncope, palpitations GI: Denies abdominal pain, nausea, vomiting, diarrhea : Denies dysuria, hematuria Musculoskeletal: Denies joint pain or swelling Extremities: Denies calf pain, swelling Skin: Denies rash, itching Neuro: Denies headaches, dizziness VITALS:BP 100/70 Pulse 64 Ht 5' 5 (1.65m) Wt 126 lb (57.2kg) SpO2 98% LMP 04/16/2010 BMI 20.97 kg/(m2). PHYSICAL EXAMINATION: General: Awake AND alert, no distress, speaking in full sentences HEENT: NCAT, MMM Neck: Supple, no rigidity. Trachea is midline Heart: HR regular, S1/S2 Lungs: Non-labored breathing. Clear breath sounds bilaterally Abdomen: Soft, non-tender/non-diste nded. Bowel sounds present Extremities: No edema Skin: Warm, dry Neurological: Moves all extremities x4. Grossly normal cognition and motor function Laboratory and Imaging: Last Spirometry No resulted procedures found. Arterial blood gas: No results found for: PH, PCO2, PO2, HCO3, BE, LACT CT Chest other findings: Last CT Chest - Impression Only No resulted procedures found. Last XR Chest - Impression Only No resulted procedures found. ASSESSMENT/PLAN: 1. At risk for narcolepsy - ICD9: V15.89, ICD10: Z91.89 (primary diagnosis) Will proceed with PSG with [facility] - POLYSOMNOGRAM (PSG) - MULTIPLE SLEEP LATENCY TEST - TOXICOLOGY SCREEN, ROUTINE URINE 2. Daytime sleepiness - ICD9: 780.54, ICD10: R40.0 See #1. Check thyroid. - THYROID STIMULATING HORMONE - T4 FREE/FREE THYROXINE - T3, FREE 3. Tobacco use disorder - ICD9: 305. (more content not included)... Normal [facility] No Panel Informationon 04-08 Interpretation and review of laboratory results Normal [facility] T3, FREEon 04-08-2024 Free T3 [Mass/Vol] 3.4 pg/mL 2.2 - 4.0 pg/mL [facility] T3Free SerPl-mCncon 04-08-20 24 Free T3 [Mass/Vol] 3.4 pg/mL Normal 2.2-4.0 [facility] Comment on above: Order Comment: Speci men Type: BLOOD SPECIMENOrdering Facility: [facility] Address: [address] [place] [address] Performed By: #### 3 016-3, 302-7, 305-0 ####[facility] LABORATORYCLIA [id number] [place] [address] [place] T4 FREE/FREE THYROXINEon Free T4 [Mass/Vol] 1.0 ng/dL 0.8 - 1.5 ng/dL [facility] T4 Free [facility] Free T4 [Mass/Vol] 1.0 ng/dL Normal 0.8-1.5 [facility] Comment on above: Order Comment: Speci men Type: BLOOD SPECIMENOrdering Facility: [facility] Address: [address] [place] [address] Performed By: #### 3 016-3, 7, 305-0 ####[facility] LABORATORYCLIA [id number] [place] [address] [place] THYROID STIMULATING HORMONEo n 04-08-2024 TSH Qn 0.601 m[IU]/L [facility] Comment on above: 3rd generation ultra sensitive TSH. TSH SerPl-aCncon 04-08-2024 TSH Qn 0.601 m[IU]/L Normal 0.358-3.740 [facility] Comment on above: Order Comment: Speci men Type: BLOOD SPECIMENOrdering Facility: [facility] Address: [address] [place] [address] Result Comment: 3rd generation ultra sensitive TSH. Performed By: #### 3 016-3, 3024-7, 305-0 ####[facility] LABORATORYCLIA [id number] [place] [id number] [place] CNOVon 03-30-2024 CNOV Office Visit (OTOLBD) HOLDEN CHILDERS ([id number]) 1970 F Date Time Provider Department 03/30/24 1:00 PM GELY GOTTLIEB OTOLBD During your visit today, we recorded the following information about you: Gely Gottlieb PA 03/30/2024 1:53 PM Signed [facility] CC: Holden Childers is a 53 year old female who is self referred for sinus concerns. Assessment: Chronic sinusitis, unspecified location (primary encounter diagnosis) Plan: -03/30/2024 audiogram: Mild to moderate sensorineural hearing loss bilaterally, worse in right ear. Mild asymmetry. Word recognition score 90% bilaterally. Right tympanogram mildly positive. Left tympanogram WNL. -Patient counseled on using Debrox or baby/mineral/sweet/s qualene oil for at home cerumen maintenance or pruritic ears. -Follow up with dentistry for TMJ evaluation. -Continue nasal sprays and saline rinses. -CT sinus scan, will MyChart with results. -Follow up with Rhinology. Gely Gottlieb PA-C HPI: Holden Childers is a 53 year old female who comes in for follow up evaluation of sinus concerns. Has been using Flonase, Astelin, and saline rinse daily for the last 2 months. Still endorsing sinus pain and pressure as well as clear PND. Pain and pressure under eyes and over temples. Bilateral ear fullness, pruritus. Denies nasal congestion. Reports a CT sinus in 2016 that was clear. Saw Neurology and tried Topimax which helped headaches but not sinus symptoms. Not currently taking. Endorses bruxism, jaw clenching. Last seen by me on 01/26/2024. Recall, Patient reports sinus concerns for the past several years. Endorses sinus pain and pressure constantly. Points to under her eyes bilaterally. Sometimes in her temples as well. Endorses thick post-nasal drip. Her ears never feels clear--feels like she's in a bubble all the time. Right otalgia. Always tired, bad body aches. Every 2 months has to take a few days off work because she feels so sick. Denies nasal congestion, no trouble breathing out of her nostrils. History of seasonal allergies--dust mites, ragweed, mold. Uses saline rinses twice weekly. Tries to use Flonase daily, ends up using every other day. Takes Singulair at night. [facility], but has not [facility] yet. No history of sinus surgery. ALLERGIES Allergen Reactions - Codeine Vomiting Current Outpatient Medications Medication Sig - acyclovir (ZOVIRAX) 400 mg tablet TAKE 1 TABLET BY MOUTH TWICE A DAY NEEDED FOR COLD SORES - azelastine 0.1% nasal spray Use 1 [place] in each nostril two times a day. - Chlorhexidine Gluconate (PERIDEX) 0.12 % solution SWISH AND SPIT 1/2 OUNCE FOR 30 SECONDS AFTER BREAKFAST AND BEFORE BEDTIME.DO NOT SWALLOW - cyanocobalamin (VITAMIN B-12) 500 mcg tablet Take by mouth. - VOLTAREN ARTHRITIS PAIN 1 % topical gel - sodium fluoride (PREVIDENT 5000 PLUS) 1.1 % dental cream USE AT BEDTIME - ketoconazole (NIZORAL) 2 % cream APPLY TOPICALLY TO THE AFFECTED AREA DAILY - traMADol (ULTRAM) 50 mg tablet - metoprolol succinate ER (TOPROL XL) 50 mg 24 hr tablet - atorvastatin (LIPITOR) 40 mg tablet Take 1 tablet by mouth every afternoon. - aspirin 81 mg chewable tablet CHEW 1 TABLET BY MOUTH EVERY DAY WITH A MEAL - ticagrelor (BRILINTA) 90 mg tablet Take by mouth. - pregabalin (LYRICA) 50 mg capsule Take 50 mg by mouth three times a day. - sertraline (ZOLOFT) 50 mg tablet Take 50 mg by mouth three times a day. - LYSINE ORAL Take by mouth. - fluticasone propionate (FLONASE NASAL) Use in the nose. - albuterol sulfate 90 mcg/actuation breath activated powder inhaler Inhale as instructed. - cyclobenzaprine (FLEXERIL) 5 mg tablet Take 1 tablet by mouth daily at bedtime. - magnesium oxide (MAG-OX) 400 mg (241.3 mg magnesium) tablet Take 1 tablet by mouth twice daily. - montelukast (SINGULAIR) 10 mg tablet Take 1 tablet by mouth daily at bedtime. - Lactobac no.41/Bifidobact no.7 (PROBIOTIC-10 ORAL) Take by mouth. (Patient not taking: Reported on 01/23/2024) - nicotine (NICODERM CQ) 14 mg/24 hr Apply 1 Patch as directed every 24 hours. No current facility-administere d medications for this visit. PAST MEDICAL HISTORY 09/2008: Abnormal Pap smear Comment: LGSIL and Positive HPV 04/2009: Abnormal Pap smear Comment: HGSIL 12/13/2008: Encounter for insertion or removal of intrauterine contraceptive device Comment: Mirena No date: Endometriosis 08/14/2012: Fibromyalgia No date: Hypertension No date: Palpitations 05/15/2010: S/P SHREE (total abdominal hysterectomy) PAST SURGICAL HISTORY No date: APPENDECTOMY 06/21/2009: CONIZATION CERVIX W/WO DANDC RPR ELTRD EXC Comment: (LEEP) 12/13/2008: INSERT INTRAUTERINE DEVICE Comment: Mirena 03/22/2010: IUD REMOVAL No date: LAPS ABD PRTMANDOMENTUM DX W/WO SPEC BR/WA SPX Comment: Laparoscopy No date: TONSILLE (more content not included)... Normal [facility] CNOV Office Visit (BASILIA) HOLDEN CHILDERS ([id number]) 1970 F Date Time Provider Department 03/30/24 12:00 PM ELIZABETH MEDRANO During your visit today, we recorded the following information about you: Elizabeth Medrano AuD, ANNE-A 03/30/2024 1:[address] [facility] [place] [facility] Section of Audiology AUDIOLOGIC EVALUATION REPORT Name: Holden Childers [facility]#: [id number] Date of Service: 03/30/2024 Date of : 1970 Age: [age] year old Referred by: MINERVA Doty Referred for: Evaluation of the cause of disorder of hearing, tinnitus, or balance. Referral documented: Under recommendations in referring provider's progress note Patient's major complaints: Reduced hearing in both ears, Dizziness/vertigo/im balance, Pressure/fullness in both ears, reports that ears always feel blocked, neck always feels sore, ears hurt several days per week, no pain today Holden Childers was seen for an initial audiologic evaluation. Refer to audiogram under Procedures tab for results. IMPRESSIONS RIGHT EAR: Sensorineural hearing loss consistent with presbycusis LEFT EAR: Sensorineural hearing loss consistent with presbycusis AUDIOLOGIC EVALUATION Following is a brief interpretation of the obtained findings from the audiologic evaluation. Refer to the Auditory Test Record for complete audiometric results. The patient was counseled about the test findings and appropriate audiologic recommendations were made. SUMMARY: Audiogram can be viewed under Procedures tab. OTOSCOPY RIGHT EAR: Otoscopic inspection revealed ear canal was clear with an identifiable cone of light. LEFT EAR: Otoscopic inspection revealed ear canal was clear with an identifiable cone of light. TYMPANOMETRY Description of procedure: This test is an objective evaluation of middle ear function. CPT code: 33583 RIGHT EAR: Normal ME function. LEFT EAR: Normal ME function. ACOUSTIC REFLEXES Description of procedure: This test is an objective measure of auditory and facial nerve pathways. CPT code: 98237, 90853 RIGHT EAR PROBE EAR: (ipsi right stimulus ear; contralateral left stimulus ear): Acoustic Reflex Pattern Did not test Acoustic Reflex Decay (left stimulus ear): Did not test. LEFT EAR PROBE EAR: (ipsi left stimulus ear; contralateral right stimulus ear): Acoustic Reflex Pattern Did not test Acoustic Reflex Decay (right stimulus ear):Did not test. PURE TONE AUDIOMETRY AND SPEECH TESTING Description of procedure: This test is an objective evaluation hearing sensitivity via air and bone conduction and speech recognition testing. CPT code:48305 RIGHT EAR: Hearing Sensitivity: borderline WNL sloping to mild/moderate HF SNHL Word Recognition Score: Excellent (90-100%). WRS is consistent with hearing sensitivity. Words were presented at 60 dB HL is above (greater than or equal to 60 dB HL) intensity level for average conversational speech. The NU-6 Ordered by Difficulty Word List (10 words) was used for testing. LEFT EAR: Hearing Sensitivity: borderline WNL sloping to moderate HF SNHL Word Recognition Score: Excellent (90-100%). WRS is consistent with hearing sensitivity. Words were presented at 60 dB HL which is above (greater than or equal to 60 dB HL) intensity level for average conversational speech. The NU-6 Ordered by Difficulty Word List (10 words) was used for testing. RECOMMENDATIONS * Continue medical follow-up with Gely Gottlieb PA-C . * Re-evaluation as medically indicated. * Return if a change in hearing is noted. * Call [phone] to schedule an appointment to assess your need for hearing aids. Request a HAE appointment. Radha Martini, CCC-A copied to: CARLEE Doty Abbrev- iation Definition Degree of hearing sensitivity dB range WNL within normal limits WNL 0 - 20 SNHL sensorineural hearing loss Mild 20-40 CHL conductive hearing loss Moderate 40-55 MHL mixed hearing loss Moderately-Severe 55-70 WRS word recognition score Severe 70-90 ME middle ear Profound 90 + TM tympanic membrane Allergies As of Date: 03/30/2024 Noted Allergy Reaction CODEINE 12/18/2023 11 - Vomiting Date Reviewed: 03/30/2024 Reviewed by: Nell Santillan RN - Fully Assessed Primary Visit Diagnosis:Sensorineu ral hearing loss (SNHL) of both ears [H90.3] Other Visit Diagnoses:Dizziness and giddiness [R42] Dysfunction of both eustachian tubes [H69.93] Order(s):HEARING TEST/AUDIOGRAM [[id number]] Order #: [id number]: 1 Prescriptions as of 03/30/2024 - acyclovir (ZOVIRAX) 400 mg tablet TAKE 1 TABLET BY MOUTH TWICE A DAY NEEDED FOR COLD SORES - azelastine 0.1% nasal spray Use 1 [place] in each nostril two times a day. - Chlorhexidine Gluconate (PERIDEX) 0.12 % solution SWISH AND SPIT 1/2 OUNCE FOR 30 SECONDS AFTER BREAKFAST AND BEFORE BEDTIME.DO NOT SWA (more content not included)... Normal [facility] HEARING TEST/AUDIOGRAMon [facility] CNOVon 03-11-2024 CNOV Office Visit (UCWSTR) LISETHHOLDEN Rai ([id number]) 1970 F Date Time Provider Department 03/11/24 12:45 PM JOSE STANLEY [facility] During your visit today, we recorded the following information about you: Temperature Pulse Respiration Blood pressure 97.6 degrees 77/minute 18/minute 119/72 Weight 56.9 kg Jose Stanley APRN.CNP 03/11/2024 1:14 PM Signed Nontoxic-appearing female presents urgent care with chest pain shortness of breath difficulty taking deep breath. Patient states today when she was walking around her house she became easily winded. Presents today for evaluation concerned due to new shortness of breath. States recently she did have a heart attack this year. Presents today for evaluation. With presenting symptoms and no URI-like symptoms I recommend patient be seen ED for further valuation care. States will be seen at [facility]. Verbalized understand agrees with plan of care. Jose Stanley APRN.DIRECTOR PRODUCT Allergies As of Date: 03/11/2024 Noted Allergy Reaction CODEINE 12/18/2023 11 - Vomiting Date Reviewed: 03/11/2024 Reviewed by: Yuliya Esteban MA - Fully Assessed Reason for Visit: Sinus Problem [99] Cmt: Sinus congestion, SOB x1 day, chest tightness Primary Visit Diagnosis:Procedure not carried out [Z53.9] Prescriptions as of 03/11/2024 - metoprolol succinate ER (TOPROL XL) 50 mg 24 hr tablet - atorvastatin (LIPITOR) 40 mg tablet Take 1 tablet by mouth every afternoon. - aspirin 81 mg chewable tablet CHEW 1 TABLET BY MOUTH EVERY DAY WITH A MEAL - ticagrelor (BRILINTA) 90 mg tablet Take by mouth. - pregabalin (LYRICA) 50 mg capsule Take 50 mg by mouth three times a day. - sertraline (ZOLOFT) 50 mg tablet Take 50 mg by mouth three times a day. - LYSINE ORAL Take by mouth. - Lactobac no.41/Bifidobact no.7 (PROBIOTIC-10 ORAL) Take by mouth. - fluticasone propionate (FLONASE NASAL) Use in the nose. - albuterol sulfate 90 mcg/actuation breath activated powder inhaler Inhale as instructed. - nicotine (NICODERM CQ) 14 mg/24 hr Apply 1 Patch as directed every 24 hours. - cyclobenzaprine (FLEXERIL) 5 mg tablet Take 1 tablet by mouth daily at bedtime. - magnesium oxide (MAG-OX) 400 mg (241.3 mg magnesium) tablet Take 1 tablet by mouth twice daily. - montelukast (SINGULAIR) 10 mg tablet Take 1 tablet by mouth daily at bedtime. Problem List As Of Date 03/11/2024 Noted Resolved Dysplasia of Cervix [N87.9] 02/01/2010 Fibromyalgia [M79.7] 08/14/2012 Seasonal allergic rhinitis due to pollen [J30.1]07/12/2022 Chronic neck and back pain [M54.2, M54.9, G89.2*07/12/2022 Sinus headache [R51.9] 10/17/2022 Encounter Status:Closed by JOSE STANLEY on 03/11/24 [facility] CNOVon 03-09-2024 CNOV Office Visit (SLLAME) HOLDEN CHILDERS ([id number]) 1970 F Date Time Provider Department 03/09/24 8:30 PM SLEEP PRINCESS [facility]WRIGHT During your visit today, we recorded the following information about you: Deborah Dalal 03/10/2024 2:12 AM Signed Sleep Study Check-In Documentation Date: March 10, 2024 Name: Holden Childers Patient was accompanied by Self. Location: [facility] Latex allergy: No Tape allergy: No Current medications were reviewed with the patient:Yes Sleep aid taken by patient for the sleep study: [place] of sleep aid: Not Applicable Procedure was explained to the patient and all questions were answered. Knowledge Program (KP): KP was not completed in epic by patient and accepted Study type: Polysomnogram Adverse Event: No (If yes create a new abstract) Comments: Patient was advised to follow up with their ordering provider regarding test results Deborah Dalal Referring Provider: ROSEMARIE SANABRIA [[id number]] Allergies As of Date: 03/09/2024 Noted Allergy Reaction CODEINE 12/18/2023 11 - Vomiting Date Reviewed: 02/09/2024 Reviewed by: Thu Boss MD - Fully Assessed Visit Diagnosis:ABBY (obstructive sleep apnea) [G47.33] Order(s):POLYSOMNOGR AM (PSG) [[id number]] Order #: [id number] Prescriptions as of 03/10/2024 - metoprolol succinate ER (TOPROL XL) 50 mg 24 hr tablet - atorvastatin (LIPITOR) 40 mg tablet Take 1 tablet by mouth every afternoon. - aspirin 81 mg chewable tablet CHEW 1 TABLET BY MOUTH EVERY DAY WITH A MEAL - ticagrelor (BRILINTA) 90 mg tablet Take by mouth. - pregabalin (LYRICA) 50 mg capsule Take 50 mg by mouth three times a day. - sertraline (ZOLOFT) 50 mg tablet Take 50 mg by mouth three times a day. - LYSINE ORAL Take by mouth. - Lactobac no.41/Bifidobact no.7 (PROBIOTIC-10 ORAL) Take by mouth. - fluticasone propionate (FLONASE NASAL) Use in the nose. - albuterol sulfate 90 mcg/actuation breath activated powder inhaler Inhale as instructed. - nicotine (NICODERM CQ) 14 mg/24 hr Apply 1 Patch as directed every 24 hours. - cyclobenzaprine (FLEXERIL) 5 mg tablet Take 1 tablet by mouth daily at bedtime. - magnesium oxide (MAG-OX) 400 mg (241.3 mg magnesium) tablet Take 1 tablet by mouth twice daily. - montelukast (SINGULAIR) 10 mg tablet Take 1 tablet by mouth daily at bedtime. Problem List As Of Date 03/09/2024 Noted Resolved Dysplasia of Cervix [N87.9] 02/01/2010 Fibromyalgia [M79.7] 08/14/2012 Seasonal allergic rhinitis due to pollen [J30.1]07/12/2022 Chronic neck and back pain [M54.2, M54.9, G89.2*07/12/2022 Sinus headache [R51.9] 10/17/2022 Encounter Status:Closed by DEBORAH DALAL on 03/10/24 [facility] POLYSOMNOGRAM (PSG)/HOME SLE EP APNEA TEST (HSAT)on 03-09-2024 POLYSOMNOGRAM (PSG)/HOME SLEEP APNEA TEST (HSAT) [facility] [address] [place] [address], [place] [address] ; PSG Study Report Name: HOLDEN CHILDERS Date of Study: 03/09/2024 [facility]#: [id number] Age: 54 (: 1970) ESS: Neck Circ.: 12.5in Height: 65.0in Weight: 125.0lb BMI: 20.8 Referring Provider: ROSEMARIE SANABRIA Sleep History: The patient is a 54 year old female . Medications: Metoprolol, Lipitor, Aspirin, Brilinta, Cyclobenzaprine, Pregabalin, Sertraline, Montelukast, Magnesium Oxide, Flonase, Azelastine, Albuterol, Diclofenac, Ketoconazole, l-lysine, Acyclovir [id number] Procedure: The study was attended continuously by a product/device technologist. The monitored parameters included: left (E1-M2) and right (E2-M1) EOG, frontal (F3-M2 and F4-M1), central (C3-M2 and C4-M1) and occipital (O1-M2 and O2-M1) EEG, mental and submental EMG, single ECG waveform, snoring, continuous airflow with nasal pressure transducer and thermistor, chest and abdominal effort, oxygen saturation, and body position via video monitoring. Hypopnea definition: The peak signal excursions drop by >= 30% of pre-event baseline using nasal pressure (diagnostic study), PAP device flow (titration study) or an alternative hypopnea sensor (diagnostic study). The duration of the >= 30% drop in signal excursion is >= 10 seconds.Hypopneas are scored with a greater than or equal to 4% oxygen desaturation from pre-event baseline. Respiratory Effort Related Arousal (RERA) definition: 10 seconds characterized by increasing respiratory effort or by flattening of the nasal pressure or PAP flow waveform leading to arousal from sleep when the sequence of breaths does not meet criteria for an apnea or hypopnea. Respiratory Disturbance Index (RDI) definition: RDI = (#apneas + #hypopneas + #RERAs) x 60 / TST. If AHI is 0.0, then RDI = RERA index. SLEEP ARCHITECTURE: The study started at 22:18:25 and ended at 05:35:00. Total sleep time (TST) was 389 minutes resulting in a sleep efficiency of 89.2% (total recording time (TRT) = 436 m). There were 22 awakenings with a total time awake after sleep onset of 30.0 minutes. The sleep latency was 17.0 minutes and the REM latency was 109 minutes. The patient spent 59.2% of sleep time in the supine position. The sleep stage percentages were 3.5% stage N1, 65.3% stage N2, 1.7% stage N3 and 29.5% REM sleep. There were 64 arousals, resulting in an arousal index of 9.9. There were 91 stage shifts. RESPIRATORY DATA: Snoring was noted. There were 27 respiratory events consisting of 0 apneas [0 obstructive (0.0%), 0 mixed (0.0%), and 0 central (0.0%)], 20 hypopneas and 7 RERAs. The apnea-hypopnea index (AHI) was 3.1 and the central-apnea index (ROMINA) was 0.0. The respiratory effort related arousal (RERA) index was 1.1. The respiratory disturbance index (RDI) was 4.2. The mean oxygen saturation during the study was 97.0%, with a minimum oxygen saturation of 85.0%. The patient spent 0.0% (0.0 min) of sleep time with an oxygen saturation below 90% and 0.0% (0.0 min) of sleep time with an oxygen saturation at or below 88%. Jonathan-Gottlieb/Period ic Breathing was not present. Supplemental oxygen was not administered. REM-Time REM AHI NREM-Time NREM AHI Total-Time Total RDI Total AHI Supine 30.0 m 0.0 200.5 m 0.9 230.5 m 1.3 0.8 Off-Supine 85.0 m 10.6 74.0 m 1.6 159.0 m 8.3 6.4 Total 115.0 m 7.8 274.5 m 1.1 389.5 m 4.2 3.1 MOVEMENT DATA: No abnormal behavior was noted. There were 0 periodic limb movements during sleep, resulting in a PLM-index of 0.0. Of these, 0 movements were associated with arousals, resulting in a PLM-arousal index of 0.0. ECG DATA: The average heart rate during sleep was 59 beats per minute, with a range of 52 to 75. During wake, the heart rate ranged from 53 to 76 beats per minute. No arrhythmias were noted. ICSD DIAGNOSIS: Primary Snoring [R06.83] Hypersomnia Due to Medical condition [G47.14] IMPRESSION/RECOMMEND ATIONS: 1. No sleep related breathing disorder is present on this study. The apnea-hypopnea index (AHI) is within normal limits and significant oxygen desaturations did not occur. 2. Hypersomnia, as indicated by the elevated [place] sleepiness scale, is not otherwise explained by the findings on this study. A comprehensive sleep evaluation may be warranted. 3. The patient reported substantial daytime sleepiness that may impair the ability to perform daily activities, including operating heavy machinery or driving. The patient should be counseled regarding the risks of daytime sleepiness. 4. The patient should be educated on good sleep hygiene. 5. Follow up with referring provider or sleep specialist. INTERPRETING PHYSICIAN: Pranav Pena MD I attest that I have performed epoch by epoch review of the entire raw data. Report Digitally Signed By: Pranav Pena MD (03/18/2024 3:37 (more content not included)... Normal [facility] .Auto Diffon 03-03-2024 Basophil, Absolute 0.1 10 3/mcL Normal 0.0-0.3 [facility] ([place]) Comment on above: Performed By: #### C AION, GFR, PBNP, ADIFF, CMP, A1C, MG, ANEU, TSH, PHOS, MORPH, CBC, TROPHS #### [address] [address] Basophils/100 WBC (Bld) 0.9 % Normal 0.0-2.5 A [facility] ([place]) Comment on above: Performed By: #### C AION, GFR, PBNP, ADIFF, CMP, A1C, MG, ANEU, TSH, PHOS, MORPH, CBC, TROPHS #### [address] [address] Eosinophil, Absolute 0.2 10 3/mcL Normal 0.0-0.7 On license of [facility] ([place]) Comment on above: Performed By: #### C AION, GFR, PBNP, ADIFF, CMP, A1C, MG, ANEU, TSH, PHOS, MORPH, CBC, TROPHS #### [address] [address] Eosinophils/100 WBC (Bld) 2.5 % Normal 0.0-6.0 [facility] ([place]) Comment on above: Performed By: #### C AION, GFR, PBNP, ADIFF, CMP, A1C, MG, ANEU, TSH, PHOS, MORPH, CBC, TROPHS #### [address] [address] Lymphocyte, Absolute 1.5 10 3/mcL Normal 0.9-4.3 On license of [facility] ([place]) Comment on above: Performed By: #### C AION, GFR, PBNP, ADIFF, CMP, A1C, MG, ANEU, TSH, PHOS, MORPH, CBC, TROPHS #### [address] [address] Lymphocytes/100 WBC (Bld) 24.3 % Normal 20.0-40.0 [facility] ([place]) Comment on above: Performed By: #### C AION, GFR, PBNP, ADIFF, CMP, A1C, MG, ANEU, TSH, PHOS, MORPH, CBC, TROPHS #### [address] [address] Monocyte, Absolute 0.4 10 3/mcL Normal 0.1-1.4 [facility] ([place]) Comment on above: Performed By: #### C AION, GFR, PBNP, ADIFF, CMP, A1C, MG, ANEU, TSH, PHOS, MORPH, CBC, TROPHS #### [address] [address] Monocytes/100 WBC (Bld) 6.4 % Normal 2.0-13.0 A [facility] ([place]) Comment on above: Performed By: #### C AION, GFR, PBNP, ADIFF, CMP, A1C, MG, ANEU, TSH, PHOS, MORPH, CBC, TROPHS #### [address] [address] Neutrophils/100 WBC (Bld) 65.9 % Normal 50.0-75.0 [facility] ([place]) Comment on above: Performed By: #### C AION, GFR, PBNP, ADIFF, CMP, A1C, MG, ANEU, TSH, PHOS, MORPH, CBC, TROPHS #### [address] [address] .GFRon 03-03-2024 GFR >60 Normal [facility] ([place]) Comment on above: Result Comment: GFR Population mean for , Non- Americans Ages 20-29 = 116 mL/min/1.73 sq.m. Ages 30-39 = 107 mL/min/1.73 sq.m. Ages 40-49 = 99 mL/min/1.73 sq.m. Ages 50-59 = 93 mL/min/1.73 sq.m. Ages 60-69 = 85 mL/min/1.73 sq.m. Ages 70+ = 75 mL/min/1.73 sq.m. Chronic Kidney Disease: Less than 60 mL/min/1.73 square meters End Stage Renal Disease: Less than 15 mL/min/1.73 square meters Performed By: #### C AION, GFR, PBNP, ADIFF, CMP, A1C, MG, ANEU, TSH, PHOS, MORPH, CBC, TROPHS #### [address] [address] GFR Non- >60 Normal [facility] ([place]) Comment on above: Result Comment: GFR Population mean for , Non- Americans Ages 20-29 = 116 mL/min/1.73 sq.m. Ages 30-39 = 107 mL/min/1.73 sq.m. Ages 40-49 = 99 mL/min/1.73 sq.m. Ages 50-59 = 93 mL/min/1.73 sq.m. Ages 60-69 = 85 mL/min/1.73 sq.m. Ages 70+ = 75 mL/min/1.73 sq.m. Chronic Kidney Disease: Less than 60 mL/min/1.73 square meters End Stage Renal Disease: Less than 15 mL/min/1.73 square meters Performed By: #### C AION, GFR, PBNP, ADIFF, CMP, A1C, MG, ANEU, TSH, PHOS, MORPH, CBC, TROPHS #### [address] [address] .MDWon 03-03-2024 Monocyte Distribution Width 17.45 Normal 0.00-20.00 [facility] ([place]) Comment on above: Result Comment: For ED adult patients suspected of sepsis, MDW<=20.0 does not rule out sepsis or risk of sepsis Performed By: #### C AION, GFR, PBNP, ADIFF, CMP, A1C, MG, ANEU, TSH, PHOS, MORPH, CBC, TROPHS #### [address] [address] .NEUABSon 03-03-2024 Neutrophil, Absolute 4.0 10 3/mcL Normal 2.3-8.1 On license of [facility] ([place]) Comment on above: Performed By: #### C AION, GFR, PBNP, ADIFF, CMP, A1C, MG, ANEU, TSH, PHOS, MORPH, CBC, TROPHS #### [address] [address] BMPon 03-03-2024 BUN/Creatinine Ratio 19.2 ratio Normal 10.0-22.0 [facility] ([place]) Comment on above: Performed By: #### C AION, GFR, PBNP, ADIFF, CMP, A1C, MG, ANEU, TSH, PHOS, MORPH, CBC, TROPHS #### [address] [address] Calcium [Mass/Vol] 9.5 mg/dL Normal 8.7-10.4 [facility] ([place]) Comment on above: Performed By: #### C AION, GFR, PBNP, ADIFF, CMP, A1C, MG, ANEU, TSH, PHOS, MORPH, CBC, TROPHS #### [address] [address] Chloride [Moles/Vol] 109 mmol/L Normal 98-110 [facility] ([place]) Comment on above: Performed By: #### C AION, GFR, PBNP, ADIFF, CMP, A1C, MG, ANEU, TSH, PHOS, MORPH, CBC, TROPHS #### [address] [address] CO2 [Moles/Vol] 28 mmol/L Normal 22-32 [facility] ([place] Comment on above: Performed By: #### C AION, GFR, PBNP, ADIFF, CMP, A1C, MG, ANEU, TSH, PHOS, MORPH, CBC, TROPHS #### [address] [address] Creatinine [Mass/Vol] 0.78 mg/dL Normal 0.50-1.20 [facility] ([place]) Comment on above: Performed By: #### C AION, GFR, PBNP, ADIFF, CMP, A1C, MG, ANEU, TSH, PHOS, MORPH, CBC, TROPHS #### [address] [address] Electrolyte Balance 0.0 mEq/L Low 4.0-15.0 [facility] ([place]) Comment on above: Performed By: #### C AION, GFR, PBNP, ADIFF, CMP, A1C, MG, ANEU, TSH, PHOS, MORPH, CBC, TROPHS #### [address] [address] Glucose [Mass/Vol] 114 mg/dL High 70-110 [facility] ([place] Comment on above: Performed By: #### C AION, GFR, PBNP, ADIFF, CMP, A1C, MG, ANEU, TSH, PHOS, MORPH, CBC, TROPHS #### [address] [address] Potassium [Moles/Vol] 3.8 mmol/L Normal 3.5-5.0 [facility] ([place]) Comment on above: Performed By: #### C AION, GFR, PBNP, ADIFF, CMP, A1C, MG, ANEU, TSH, PHOS, MORPH, CBC, TROPHS #### [address] [address] Sodium [Moles/Vol] 137 mmol/L Normal 136-145 [facility] ([place] Comment on above: Performed By: #### C AION, GFR, PBNP, ADIFF, CMP, A1C, MG, ANEU, TSH, PHOS, MORPH, CBC, TROPHS #### [address] [address] Urea nitrogen [Mass/Vol] 15.0 mg/dL Normal 8.0-22.0 [facility] ([place] Comment on above: Performed By: #### C AION, GFR, PBNP, ADIFF, CMP, A1C, MG, ANEU, TSH, PHOS, MORPH, CBC, TROPHS #### [address] [address] CBCon 03-03-2024 Erythrocyte distribution width (RBC) [Ratio] 13.3 % Normal 11.5-15.5 [facility] ([place] Comment on above: Performed By: #### C AION, GFR, PBNP, ADIFF, CMP, A1C, MG, ANEU, TSH, PHOS, MORPH, CBC, TROPHS #### [address] [address] Hematocrit (Bld) [Volume fraction] 36.9 % Normal 34.0-46.0 [facility] ([place] Comment on above: Performed By: #### C AION, GFR, PBNP, ADIFF, CMP, A1C, MG, ANEU, TSH, PHOS, MORPH, CBC, TROPHS #### [place] [address] Hgb 13.0 G/dL Normal 12.0-16.0 [facility] ([place] Comment on above: Performed By: #### C AION, GFR, PBNP, ADIFF, CMP, A1C, MG, ANEU, TSH, PHOS, MORPH, CBC, TROPHS #### [place] [address] MCH (RBC) [Entitic mass] 32.6 pg Normal 27.0-33.0 [facility] ([place] Comment on above: Performed By: #### C AION, GFR, PBNP, ADIFF, CMP, A1C, MG, ANEU, TSH, PHOS, MORPH, CBC, TROPHS #### [place] [address] MCHC 35.1 G/dL Normal 32.0-36.0 [facility] ([place] Comment on above: Performed By: #### C AION, GFR, PBNP, ADIFF, CMP, A1C, MG, ANEU, TSH, PHOS, MORPH, CBC, TROPHS #### [place] [address] MCV (RBC) [Entitic vol] 92.9 fL Normal 80.0-99.0 A [facility] ([place]) Comment on above: Performed By: #### C AION, GFR, PBNP, ADIFF, CMP, A1C, MG, ANEU, TSH, PHOS, MORPH, CBC, TROPHS #### [place] [address] Platelet 173 10 3/mcL Normal 150-450 [facility] ([place] Comment on above: Performed By: #### C AION, GFR, PBNP, ADIFF, CMP, A1C, MG, ANEU, TSH, PHOS, MORPH, CBC, TROPHS #### [facility] [address] [place], [place] [address] Platelet mean volume (Bld) [Entitic vol] 8.1 fL Normal 6.6-10.5 [facility] ([place]) Comment on above: Performed By: #### C AION, GFR, PBNP, ADIFF, CMP, A1C, MG, ANEU, TSH, PHOS, MORPH, CBC, TROPHS #### [place] [address] RBC 3.98 10 6/mcL Low 4.10-5.30 [facility] ([place] Comment on above: Performed By: #### C AION, GFR, PBNP, ADIFF, CMP, A1C, MG, ANEU, TSH, PHOS, MORPH, CBC, TROPHS #### [place] [address] WBC 6.1 10 3/mcL Normal 4.5-10.8 [facility] ([place] Comment on above: Performed By: #### C AION, GFR, PBNP, ADIFF, CMP, A1C, MG, ANEU, TSH, PHOS, MORPH, CBC, TROPHS #### [place] [address] LABORATORYOrdered By: SYSTEM SYSTEM on 03-03-2024 Troponin I.cardiac DL <= 0.01 ng/mL [Mass/Vol] 15 ng/L Normal 0 - 34 ng/L ADM Comment on above: Interpretive Data: High Sensitive Troponin I Reference Ranges: Female: 0-34 ng/L Male: 0-54 ng/L Testing performed on [employer] analyzer using direct chemiluminescent technology. Basophils (Bld) [#/Vol] 0.1 103/mcL Normal 0.0 - 0.3 10^3/mcL Workflow SS Basophils/100 WBC (Bld) 0.9 % Normal 0.0 - 2.5 % Workflow SS Calcium [Mass/Vol] 9.5 mg/dL Normal 8.7 - 10. 4 mg/dL ADM SS Chloride [Moles/Vol] 109 mmol/L Normal 98 - 11 0 mEq/L ADM SS CO2 [Moles/Vol] 28 mmol/L Normal 22 - 32 mEq/L ADM SS Creatinine [Mass/Vol] 0.78 mg/dL Normal 0.50 - 1.20 mg/dL ADM SS Electrolyte Balance 0.0 mEq/L Low 4.0 - 15 .0 mEq/L ADM SS Eosinophils (Bld) [#/Vol] 0.2 103/mcL Normal 0.0 - 0.7 10^3/mcL Workflow SS Eosinophils/100 WBC (Bld) 2.5 % Normal 0.0 - 6.0 % Workflow SS Erythrocyte distribution width (RBC) [Ratio] 13.3 % Normal 11.5 - 15.5 % Workflow SS GFR/1.73 sq M.predicted among blacks MDRD (S/P/Bld) [Vol rate/Area] ml/min/1.73sqm Invalid Interpretation Code ADM SS Comment on above: Interpretive Data: GFR Population mean for , Non- Americans Ages 20-29 = 116 mL/min/1.73 sq.m. Ages 30-39 = 107 mL/min/1.73 sq.m. Ages 40-49 = 99 mL/min/1.73 sq.m. Ages 50-59 = 93 mL/min/1.73 sq.m. Ages 60-69 = 85 mL/min/1.73 sq.m. Ages 70+ = 75 mL/min/1.73 sq.m. Chronic Kidney Disease: Less than 60 mL/min/1.73 square meters End Stage Renal Disease: Less than 15 mL/min/1.73 square meters GFR/1.73 sq M.predicted among non-blacks MDRD (S/P/Bld) [Vol rate/Area] ml/min/1.73sqm Invalid Interpretation Code [facility] Comment on above: Interpretive Data: GFR Population mean for , Non- Americans Ages 20-29 = 116 mL/min/1.73 sq.m. Ages 30-39 = 107 mL/min/1.73 sq.m. Ages 40-49 = 99 mL/min/1.73 sq.m. Ages 50-59 = 93 mL/min/1.73 sq.m. Ages 60-69 = 85 mL/min/1.73 sq.m. Ages 70+ = 75 mL/min/1.73 sq.m. Chronic Kidney Disease: Less than 60 mL/min/1.73 square meters End Stage Renal Disease: Less than 15 mL/min/1.73 square meters Glucose [Mass/Vol] 114 mg/dL High 70 - 110 mg/dL AH ADM SS Hematocrit (Bld) [Volume fraction] 36.9 % Normal 34.0 - 46.0 % AH Workflow SS Hemoglobin (Bld) [Mass/Vol] 13.0 G/dL Normal 12.0 - 16.0 G/dL AH Workflow SS Lymphocytes (Bld) [#/Vol] 1.5 103/mcL Normal 0.9 - 4.3 10^3/mcL AH Workflow SS Lymphocytes/100 WBC (Bld) 24.3 % Normal 20.0 - 40.0 % AH Workflow SS MCH (RBC) [Entitic mass] 32.6 pg Normal 27.0 - 33.0 pg AH Workflow SS MCHC 35.1 G/dL Normal 32.0 - 36.0 G/dL AH Workflow SS MCV (RBC) [Entitic vol] 92.9 fL Normal 80.0 - 99.0 fL AH Workflow SS Monocyte distribution width Auto (Bld) [Entitic vol] 17.45 1 Normal 0.00 - 20.00 AH Workflow SS Comment on above: Result Comment: For ED adult patients suspected of sepsis, MDW<=20.0 does not rule out sepsis or risk of sepsis Monocytes (Bld) [#/Vol] 0.4 103/mcL Normal 0.1 - 1.4 10^3/mcL AH Workflow SS Monocytes/100 WBC (Bld) 6.4 % Normal 2.0 - 13.0 % AH Workflow SS Neutrophils (Bld) [#/Vol] 4.0 103/mcL Normal 2.3 - 8.1 10^3/mcL AH Workflow SS Neutrophils/100 WBC (Bld) 65.9 % Normal 50.0 - 75.0 % AH Workflow SS Platelet mean volume (Bld) [Entitic vol] 8.1 fL Normal 6.6 - 10.5 fL AH Workflow SS Platelets (Bld) [#/Vol] 173 103/mcL Normal 150 - 450 10^3/mcL AH Workflow SS Potassium [Moles/Vol] 3.8 mmol/L Normal 3.5 - 5.0 mEq/L AH ADM SS RBC (Bld) [#/Vol] 3.98 106/mcL Low 4.10 - 5.3 0 10^6/mcL AH Workflow SS Sodium [Moles/Vol] 137 mmol/L Normal 136 - 145 mEq/L ADM SS Troponin I.cardiac DL <= 0.01 ng/mL [Mass/Vol] 14 ng/L Normal 0 - 34 ng/L [facility] Comment on above: Interpretive Data: High Sensitive Troponin I Reference Ranges: Female: 0-34 ng/L Male: 0-54 ng/L Testing performed on [employer] IM analyzer using direct chemiluminescent technology. Urea nitrogen [Mass/Vol] 15.0 mg/dL Normal 8.0 - 22.0 mg/dL ADM SS Urea nitrogen/Creatinine [Mass ratio] 19.2 ratio Normal 10.0 - 22.0 ratio ADM SS WBC (Bld) [#/Vol] 6.1 103/mcL Normal 4.5 - 10.8 10^3/mcL Workflow SS TROPHSon 03-03-2024 High Sensitivity Troponin I 15 ng/L Normal 0-34 [facility] ([place]) Comment on above: Result Comment: High Sensitive Troponin I Reference Ranges: Female: 0-34 ng/L Male: 0-54 ng/L Testing performed on [employer] IM analyzer using direct chemiluminescent technology. Performed By: #### C AION, GFR, PBNP, ADIFF, CMP, A1C, MG, ANEU, TSH, PHOS, MORPH, CBC, TROPHS #### [address] [address] High Sensitivity Troponin I 14 ng/L Normal 0-34 [facility] ([place]) Comment on above: Result Comment: High Sensitive Troponin I Reference Ranges: Female: 0-34 ng/L Male: 0-54 ng/L Testing performed on [employer] IM analyzer using direct chemiluminescent technology. Performed By: #### C AION, GFR, PBNP, ADIFF, CMP, A1C, MG, ANEU, TSH, PHOS, MORPH, CBC, TROPHS #### [address] [address] XR CHEST 1 VIEWon 03-03-2024 XR CHEST 1 VIEW ORIGINAL EXAMINATION: ONE XRAY VIEW OF THE CHEST03/03/2024 11:15 am COMPARISON: None. HISTORY: ORDERING SYSTEM PROVIDED HISTORY: Reason for Exam: chest pain FINDINGS: The cardiomediastinal contours are normal. Vascular structures appear within normal limits. There is no consolidation. No pleural fluid or pneumothorax. No aggressive osseous lesions identified. IMPRESSION: No acute radiographic findings. Interpreted by: Bear Moreno MD Preliminary Report By: Bear Moreno MD Electronically signed By Bera Moreno MD Dictated Date: 03/03/2024 11:17:44 AM Prelim Date: 03/03/2024 11:18:22 AM Sign Date: 03/03/2024 11:18:22 AM Ordering Provider: LEONEL Elizabeth [facility] ([place]) CT Chest for screening WO co ntraston 02-21-2024 IMPRESSION: LungRADS category: 1 LungRADS modifier: None LungRADS 0 reason: n/a Recommendations: Continue annual screening with LDCT in 12 months. Other actionable findings: None Reference: [employer]. Lung CT Screening Reporting and Data System (Lung-RADS). Available at: http://www.acr.org/Q uality-Safety/Resour [place]/LungRADS Chemical Checker: ROSMERY Transcribe Date/Time: Feb 21 2024 1:27P Dictated by : PARKER LI MD This examination was interpreted and the report reviewed and electronically signed by: PARKER LI MD on Feb 21 2024 1:45PM [facility] * * *Final Report* * * DATE OF EXAM: Feb 10 2024 4:50PM [facility] 0562 - CT LUNG SCREENING WO IVCON / PROCEDURE REASON: Tobacco use current * * * * Physician Interpretation * * * * EXAMINATION: CHEST CT WITHOUT CONTRAST (LOW-DOSE CT LUNG CANCER SCREENING PROTOCOL) CLINICAL HISTORY: Lung cancer LDCT screening ? absence of signs or symptoms of lung cancer. Personal history of nicotine dependence. Baseline (initial) Technique: Spiral CT acquisition of the chest from the thoracic inlet to the upper abdomen without contrast. MQ: [id number] Patient characteristics: * Luhm-bb-Rwgua: 1970; Age at exam: 54 years * Gender: Female * Lung Disease: Asymptomatic (no signs or symptoms of lung disease) * Number of Pack Years: 20.25 * Current smoker (=0) or Number of Years since Quit: <1 year * Ordering provider and NPI: ARASELI MARKHAM [id number] * Interpreting radiologist and NPI: Marshall [id number] Exam acquisition parameters: * Exam Date: 02/10/2024 4:50 PM * Site: [facility] * * CT System Regional Environmental Manager: [employer] * CT System Model: [employer] * Tube Current-Time (mA-sec): 45 0.7 * Peak Voltage (kV): 120V * Scan Time (sec): 5.46 * Scan Volume (z-length, cm): 24.70 * Pitch: 0.984 * Slice Thickness (mm): 1.25 * CT Dose-Length Product: 82.62 mGy*cm * CT Dose Index: 2.79mGy * CT Dose Reduction Method: Automated exposure control(AEC) and iterative recon COMPARISON: None available RESULT: Are nodules present? No Other findings: The trachea and central airways appear patent and devoid of endobronchial lesion. There is mild diffuse bilateral bronchial wall thickening, consistent with chronic airways inflammation. Dependent groundglass opacities in both lower lobes are likely secondary to nonspecific atelectasis. The lungs are clear of consolidation. No pleural effusion or pneumothorax is identified. The thyroid gland appears unremarkable. No supraclavicular lymphadenopathy is identified. No region of intrathoracic lymphadenopathy is identified, including the axillae. The esophagus appears non-dilated. The thoracic aorta appears normal in course and caliber. The main and central pulmonary arteries are within normal limits of diameter. The overall heart size is within normal limits. There is no pericardial effusion. Visualized portions of the upper abdomen disclose no acute process. The vertebral body heights appear symmetric and well-maintained. There are mild degenerative changes in the thoracic spine. No lytic or destructive osseous lesion is identified. I suspect rudimentary bilateral cervical ribs, a normal anatomic variant. The soft tissues of the chest wall appear unremarkable. Emphysema: None Coronary Artery Calcifications: Circumflex None; Left Anterior Descending None; Right Coronary A PCI stent is present in the right coronary artery circulation Localizer images: No additional findings. [facility] RADIOLOG[facility] Provider, [facility] [place] - 02/21/2024 * * *Final Report* * * DATE OF EXAM: Feb 10 2024 4:50PM [facility] 0562 - CT LUNG SCREENING [facility] / PROCEDURE REASON: Tobacco use current * * * * Physician Interpretation * * * * EXAMINATION: CHEST CT WITHOUT CONTRAST (LOW-DOSE CT LUNG CANCER SCREENING PROTOCOL) CLINICAL HISTORY: Lung cancer LDCT screening ? absence of signs or symptoms of lung cancer. Personal history of nicotine dependence. Baseline (initial) Technique: Spiral CT acquisition of the chest from the thoracic inlet to the upper abdomen without contrast. MQ: CTLCS_6 Patient characteristics: * Jiil-ji-Bjnsm: 1970; Age at exam: 54 years * Gender: Female * Lung Disease: Asymptomatic (no signs or symptoms of lung disease) * Number of Pack Years: 20.25 * Current smoker (=0) or Number of Years since Quit: <1 year * Ordering provider and NPI: ARASELI MARKHAM [id number] * Interpreting radiologist and NPI: Marshall [id number] Exam acquisition parameters: * Exam Date: 02/10/2024 4:50 PM * Site: [facility] * * CT System Regional Environmental Manager: [employer] * CT System Model: [employer]agin[employer] * Tube Current-Time (mA-sec): 45 0.7 * Peak Voltage (kV): 120V * Scan Time (sec): 5.46 * Scan Volume (z-length, cm): 24.70 * Pitch: 0.984 * Slice Thickness (mm): 1.25 * CT Dose-Length Product: 82.62 mGy*cm * CT Dose Index: 2.79mGy * CT Dose Reduction Method: Automated exposure control(AEC) and iterative recon COMPARISON: None available RESULT: Are nodules present? No Other findings: The trachea and central airways appear patent and devoid of endobronchial lesion. There is mild diffuse bilateral bronchial wall thickening, consistent with chronic airways inflammation. Dependent groundglass opacities in both lower lobes are likely secondary to nonspecific atelectasis. The lungs are clear of consolidation. No pleural effusion or pneumothorax is identified. The thyroid gland appears unremarkable. No supraclavicular lymphadenopathy is identified. No region of intrathoracic lymphadenopathy is identified, including the axillae. The esophagus appears non-dilated. The thoracic aorta appears normal in course and caliber. The main and central pulmonary arteries are within normal limits of diameter. The overall heart size is within normal limits. There is no pericardial effusion. Visualized portions of the upper abdomen disclose no acute process. The vertebral body heights appear symmetric and well-maintained. There are mild degenerative changes in the thoracic spine. No lytic or destructive osseous lesion is identified. I suspect rudimentary bilateral cervical ribs, a normal anatomic variant. The soft tissues of the chest wall appear unremarkable. Emphysema: None Coronary Artery Calcifications: Circumflex None; Left Anterior Descending None; Right Coronary A PCI stent is present in the right coronary artery circulation Localizer images: No additional findings. IMPRESSION IMPRESSION: LungRADS category: 1 LungRADS modifier: None LungRADS 0 reason: n/a Recommendations: Continue annual screening with LDCT in 12 months. Other actionable findings: None Reference: [employer]. Lung CT Screening Reporting and Data System (Lung-RADS). Available at: http://www.acr.org/Q uality-Safety/Resour milton/LungRADS Chemical Checker: ROSMERY Transcribe Date/Time: Feb 21 2024 1:27P Dictated by : PARKER LI MD This examination was interpreted and the report reviewed and electronically signed by: PARKER LI MD on Feb 21 2024 1:45PM EST [facility] CT Chest for screening WO co ntrastOrdered By: Ccf Provider on 02-21-[address] [facility] [address] Chest for screening WO co ntraston 02-10-2024 Radiology Study observation (narrative) [facility] CT LUNG SCREENING WO IVCONon 02-10-2024 CT LUNG SCREENING WO IVCON * * *Final Report* * * DATE OF EXAM: Feb 10 2024 4:50PM [facility] 0562 - CT LUNG SCREENING WO IVCON / PROCEDURE REASON: Tobacco use current * * * * Physician Interpretation * * * * EXAMINATION: CHEST CT WITHOUT CONTRAST (LOW-DOSE CT LUNG CANCER SCREENING PROTOCOL) CLINICAL HISTORY: Lung cancer LDCT screening ? absence of signs or symptoms of lung cancer. Personal history of nicotine dependence. Baseline (initial) Technique: Spiral CT acquisition of the chest from the thoracic inlet to the upper abdomen without contrast. MQ: CTLCS_6 Patient characteristics: * Qvrd-mk-Rnnhw: 1970; Age at exam: 54 years * Gender: Female * Lung Disease: Asymptomatic (no signs or symptoms of lung disease) * Number of Pack Years: 20.25 * Current smoker (=0) or Number of Years since Quit: <1 year * Ordering provider and NPI: ARASELI MARKHAM [id number] * Interpreting radiologist and NPI: Marshall [id number] Exam acquisition parameters: * Exam Date: 02/10/2024 4:50 PM * Site: [facility] * * CT System Regional Environmental Manager: [employer] * CT System Model: [employer] Rashawn * Tube Current-Time (mA-sec): 45 0.7 * Peak Voltage (kV): 120V * Scan Time (sec): 5.46 * Scan Volume (z-length, cm): 24.70 * Pitch: 0.984 * Slice Thickness (mm): 1.25 * CT Dose-Length Product: 82.62 mGy*cm * CT Dose Index: 2.79mGy * CT Dose Reduction Method: Automated exposure control(AEC) and iterative recon COMPARISON: None available RESULT: Are nodules present? No Other findings: The trachea and central airways appear patent and devoid of endobronchial lesion. There is mild diffuse bilateral bronchial wall thickening, consistent with chronic airways inflammation. Dependent groundglass opacities in both lower lobes are likely secondary to nonspecific atelectasis. The lungs are clear of consolidation. No pleural effusion or pneumothorax is identified. The thyroid gland appears unremarkable. No supraclavicular lymphadenopathy is identified. No region of intrathoracic lymphadenopathy is identified, including the axillae. The esophagus appears non-dilated. The thoracic aorta appears normal in course and caliber. The main and central pulmonary arteries are within normal limits of diameter. The overall heart size is within normal limits. There is no pericardial effusion. Visualized portions of the upper abdomen disclose no acute process. The vertebral body heights appear symmetric and well-maintained. There are mild degenerative changes in the thoracic spine. No lytic or destructive osseous lesion is identified. I suspect rudimentary bilateral cervical ribs, a normal anatomic variant. The soft tissues of the chest wall appear unremarkable. Emphysema: None Coronary Artery Calcifications: Circumflex None; Left Anterior Descending None; Right Coronary A PCI stent is present in the right coronary artery circulation Localizer images: No additional findings. IMPRESSION: LungRADS category: 1 LungRADS modifier: None LungRADS 0 reason: n/a Recommendations: Continue annual screening with LDCT in 12 months. Other actionable findings: None Reference: [employer]. Lung CT Screening Reporting and Data System (Lung-RADS). Available at: http://www.acr.org/Q uality-Safety/Resour milton/LungRADS Chemical Checker: ROSMERY Transcribe Date/Time: Feb 21 2024 1:27P Dictated by : PARKER LI MD This examination was interpreted and the report reviewed and electronically signed by: PARKER LI MD on Feb 21 2024 1:45PM EST [id number] [facility] CNOVon 02-09-2024 [facility] Office Visit (URCANT) HOLDEN CHILDERS ([id number]) 1970 F Date Time Provider Department 02/09/24 12:15 PM THU BOSS URCANT During your visit today, we recorded the following information about you: Britney Beltran 02/09/2024 11:50 AM Signed Stone Decorator offered:Patient accepts, visit chaperoned by Thu Ellis CMA, MD 02/09/2024 1:02 PM Signed [facility] ESTABLISHED PATIENT OFFICE VISIT Patient presents with: Cystoscopy-1 HISTORY OF PRESENT ILLNESS Holden Childers is a 53 year old female who is here for cysto--02/09/24 cysto -angulated bn, clear, abx 5d Prn f/u No new issues or utis Review of Systems The remainder of the ROS was reviewed and is negative. LAB No results found for: CREAT No results found for: PSA, PSASC GLUCOSE UA (POCT) (mg/dL) Date Value 02/09/2024 Negative BILIRUBIN UA (POCT) (no units) Date Value 02/09/2024 Negative KETONE UA (POCT) (mg/dL) Date Value 02/09/2024 Negative SPECIFIC GRAVITY UA (POCT) (no units) Date Value 02/09/2024 1.020 HEMOGLOBIN/BLOOD UA (POCT) (no units) Date Value 02/09/2024 Negative PH UA (POCT) (no units) Date Value 02/09/2024 6.5 PROTEIN UA (POCT) (mg/dL) Date Value 02/09/2024 Negative UROBILINOGEN UA (POCT) (E.U./dL) Date Value 02/09/2024 0.2 NITRITE UA (POCT) (no units) Date Value 02/09/2024 Negative LEUKOCYTES UA (POCT) (no units) Date Value 02/09/2024 Negative COLOR UA (POCT) (no units) Date Value 02/09/2024 Yellow CLARITY UA (POCT) (no units) Date Value 02/09/2024 Clear ] MEDICATIONS metoprolol succinate ER (TOPROL XL) 50 mg 24 hr tablet atorvastatin (LIPITOR) 40 mg tablet Take 1 tablet by mouth every afternoon. aspirin 81 mg chewable tablet CHEW 1 TABLET BY MOUTH EVERY DAY WITH A MEAL ticagrelor (BRILINTA) 90 mg tablet Take by mouth. pregabalin (LYRICA) 50 mg capsule Take 50 mg by mouth three times a day. sertraline (ZOLOFT) 50 mg tablet Take 50 mg by mouth three times a day. LYSINE ORAL Take by mouth. fluticasone propionate (FLONASE NASAL) Use in the nose. albuterol sulfate 90 mcg/actuation breath activated powder inhaler Inhale as instructed. nicotine (NICODERM CQ) 14 mg/24 hr Apply 1 Patch as directed every 24 hours. magnesium oxide (MAG-OX) 400 mg (241.3 mg magnesium) tablet Take 1 tablet by mouth twice daily. Lactobac no.41/Bifidobact no.7 (PROBIOTIC-10 ORAL) Take by mouth. (Patient not taking: Reported on 01/23/2024) cyclobenzaprine (FLEXERIL) 5 mg tablet Take 1 tablet by mouth daily at bedtime. montelukast (SINGULAIR) 10 mg tablet Take 1 tablet by mouth daily at bedtime. 0 HISTORIES PAST MEDICAL HISTORY Diagnosis Date Abnormal Pap smear 09/2008 LGSIL and Positive HPV Abnormal Pap smear 04/2009 HGSIL Encounter for insertion or removal of intrauterine contraceptive device 12/13/2008 Mirena Endometriosis Fibromyalgia 08/14/2012 Hypertension Palpitations S/P SHREE (total abdominal hysterectomy) 05/15/2010 PAST SURGICAL HISTORY Procedure Laterality Date APPENDECTOMY CONIZATION CERVIX W/WO DANDC RPR ELTRD EXC 06/21/2009 (LEEP) INSERT INTRAUTERINE DEVICE 12/13/2008 Mirena IUD REMOVAL 03/22/2010 LAPS ABD PRTMANDOMENTUM DX W/WO SPEC BR/WA SPX Laparoscopy TONSILLECTOMY PRIMARY/SECONDARY Tonsillectomy TOTAL ABDOMINAL HYSTERECT W/WO RMVL TUBE OVARY 05/15/2010 Dr. Dodd; Dysplasia, Metrorrhagia, Dysmenorrhea TRANSV CAROTID STENT PLACEMT 10/25/2023 [place] VAGINOSCOPY 02/01/2010 FAMILY HISTORY Problem Relation Age of Onset Hypertension Mother Coronary Artery Disease Maternal Grandfather Coronary Artery Disease Paternal Grandfather SOCIAL HISTORY Social History Tobacco Use Smoking status: Former Packs/day: 0.75 Years: 27.00 Additional pack years: 0.00 Total pack years: 20.25 Types: Cigarettes Quit date: 10/25/2023 Years since quittin.2 Smokeless tobacco: Never Tobacco comments: Started smoking age 26 Vaping Use Vaping Use: Some days Substances: Nicotine, Flavoring Substance Use Topics Alcohol use: No Drug use: No LMP 04/16/2010 Physical Exam ASSESSMENT/PLAN: 1. Bladder wall thickening [N32.89] - ICD9: 596.89, ICD10: N32.89 (primary diagnosis) Bladder changes prior to cath, 02/09/24 cysto -angulated bn, clear, Prn f/u 2. 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 Recurrent UTI - ICD9: 599.0, ICD10: N39.0 4. Urgency of urination - ICD9: 788.63, ICD10: R39.15 Thu Boss MD This note was partially created using voice recognition software and is inherently subject to errors including those of syntax and sound-alike substitutions which may escape proofreading. In such instances, original meaning may be extrapolated by contextual derivation. Thu Boss MD 02/09/2024 1:02 PM Si (more content not included)... Normal [facility] UA DIP, URINE (POC)on 2023 BILIRUBIN UA (POCT) Negative Negative [facility] CLARITY UA (POCT) Clear [facility] COLOR UA (POCT) Yellow [facility] GLUCOSE UA (POCT) Negative Negative mg/dL [facility] Hemoglobin Ql (U) Negative Negative [facility] KETONE UA (POCT) Negative Negative mg/dL [facility] LEUKOCYTES UA (POCT) Negative Negative [facility] NITRITE UA (POCT) Negative Negative [facility] PH UA (POCT) 6.5 4.5 - 8.0 [facility] Protein Ql (U) Negative Negative mg/dL [facility] SPECIFIC GRAVITY UA (POCT) 1.020 1.005 - 1.030 [facility] UROBILINOGEN UA (POCT) 0.2 Zaira l E.U./dL [facility] Location:[facility] [place], [address] [place] [address], [id number] [facility] POINT OF CARE [facility] CNOVon 01-26-2024 CNOV Office Visit (OTOLMN) HOLDEN CHILDERS ([id number]) 1970 F Date Time Provider Department 01/26/24 9:15 AM GELY GOTTLIEB During your visit today, we recorded the following information about you: Dago Ambriz, CT 01/26/2024 8:59 AM Signed Tobacco Use: .75 packs/day, for 27 years. Quit 10/25/2023. Types: Cigarettes Was smoking cessation packet given? N/A - Patient is a non-smoker or quit >1 year ago. Was a referral initiated?N/A Patient is a non-smoker Gely Gottlieb PA 01/30/2024 8:29 PM Signed [facility] CC: Holden Childers is a 53 year old female who is self referred for sinus concerns. Assessment: Disorder of eustachian tube, unspecified laterality Post-nasal drip Nasal congestion Plan: - Nasal endoscopy reveals draining clear mucus, erythematous mucosa, and hypertrophied turbinates bilaterally. - Begin daily Neilmed saline rinse. Continue Flonase and add Astelin, 2 sprays in each nostril once daily. - Schedule Hearing test for eustachian tube dysfunction - Follow up with me in 2 months Gely Gottileb PA-C HPI: Holden Childers is a 53 year old female who comes in for evaluation of multiple concerns. Patient reports sinus concerns for the past several years. Endorses sinus pain and pressure constantly. Points to under her eyes bilaterally. Sometimes in her temples as well. Endorses thick post-nasal drip. Her ears never feels clear--feels like she's in a bubble all the time. Right otalgia. Always tired, bad body aches. Every 2 months has to take a few days off work because she feels so sick. Denies nasal congestion, no trouble breathing out of her nostrils. History of seasonal allergies--dust mites, ragweed, mold. Uses saline rinses twice weekly. Tries to use Flonase daily, ends up using every other day. Takes Singulair at night. PCP just called in Astelin, but has not filled it yet. No history of sinus surgery. ALLERGIES Allergen Reactions - Codeine Vomiting Current Outpatient Medications Medication Sig - metoprolol succinate ER (TOPROL XL) 50 mg 24 hr tablet - atorvastatin (LIPITOR) 40 mg tablet Take 1 tablet by mouth every afternoon. - aspirin 81 mg chewable tablet CHEW 1 TABLET BY MOUTH EVERY DAY WITH A MEAL - ticagrelor (BRILINTA) 90 mg tablet Take by mouth. - pregabalin (LYRICA) 50 mg capsule Take 50 mg by mouth three times a day. - sertraline (ZOLOFT) 50 mg tablet Take 50 mg by mouth three times a day. - LYSINE ORAL Take by mouth. - fluticasone propionate (FLONASE NASAL) Use in the nose. - albuterol sulfate 90 mcg/actuation breath activated powder inhaler Inhale as instructed. - nicotine (NICODERM CQ) 14 mg/24 hr Apply 1 Patch as directed every 24 hours. - cyclobenzaprine (FLEXERIL) 5 mg tablet Take 1 tablet by mouth daily at bedtime. - magnesium oxide (MAG-OX) 400 mg (241.3 mg magnesium) tablet Take 1 tablet by mouth twice daily. - montelukast (SINGULAIR) 10 mg tablet Take 1 tablet by mouth daily at bedtime. - Lactobac no.41/Bifidobact no.7 (PROBIOTIC-10 ORAL) Take by mouth. (Patient not taking: Reported on 01/23/2024) No current facility-administere d medications for this visit. PAST MEDICAL HISTORY Diagnosis Date - Abnormal Pap smear 09/2008 LGSIL and Positive HPV - Abnormal Pap smear 04/2009 HGSIL - Encounter for insertion or removal of intrauterine contraceptive device 12/13/2008 Mirena - Endometriosis - Fibromyalgia 08/14/2012 - Hypertension - Palpitations - S/P SHREE (total abdominal hysterectomy) 05/15/2010 PAST SURGICAL HISTORY Procedure Laterality Date - APPENDECTOMY - CONIZATION CERVIX W/WO DANDC RPR ELTRD EXC 06/21/2009 (LEEP) - INSERT INTRAUTERINE DEVICE 12/13/2008 Mirena - IUD REMOVAL 03/22/2010 - LAPS ABD PRTMANDOMENTUM DX W/WO SPEC BR/WA SPX Laparoscopy - TONSILLECTOMY PRIMARY/SECONDARY Tonsillectomy - TOTAL ABDOMINAL HYSTERECT W/WO RMVL TUBE OVARY 05/15/2010 Dr. Dodd; Dysplasia, Metrorrhagia, Dysmenorrhea - TRANSV CAROTID STENT PLACEMT 10/25/2023 [place] - VAGINOSCOPY 02/01/2010 Social History: Social History Tobacco Use - Smoking status: Former Packs/day: 0.75 Years: 27.00 Additional pack years: 0.00 Total pack years: 20.25 Types: Cigarettes Quit date: 10/25/2023 Years since quittin.2 - Smokeless tobacco: Never - Tobacco comments: Started smoking age 26 Vaping Use - Vaping Use: Some days - Substances: Nicotine, Flavoring Substance Use Topics - Alcohol use: No - Drug use: No FAMILY HISTORY Problem Relation Age of Onset - Hypertension Mother - Coronary Artery Disease Maternal Grandfather - Coronary Artery Disease Paternal Grandfather PHYSICAL EXAM: On physical examination Holden Childers is a well-developed, well nourished female. Her speech is normal and her voice is clear. Mental status revealed patient to be alert and oriented (more content not included)... Normal [facility] CNOVon 01-23-2024 CNOV Office Visit ([facility]) HOLDEN CHILDERS ([id number]) 1970 F Date Time Provider Department 01/23/24 10:30 AM ARASELI MARKHAM [facility] During your visit today, we recorded the following information about you: Pulse Weight Height 66/minute 55.3 kg 1.651 m Araseli Markham APRN.DIRECTOR PRODUCT 01/23/2024 11:08 AM Signed LUNG SCREENING VISIT PRIMARY CARE PHYSICIAN: Bautista Manzano MD PULMONARY PROVIDER: Dr. Arita-not ongoing management Results will be communicated via letter or electronic record if applicable. Visit Delivery: In Person Patient Visit Type: New to Screening Current or Ex-smoker? Ex Exam Type: baseline LDCT Number of Pack Years: 20.25 Current smoker (=0) or Number of Years since Quit: <1 year REQUESTER: The referring provider advised the patient to have screening. HISTORY OF PRESENT ILLNESS: Holden Childers is a 53 year old Former smoker who presents for lung screening. Quit smoking 10/2023 due to having [place]. Doing cardiac exercise-has some SOB. Frequent sinus infections. Last infection currently. Respiratory symptoms include: SOB: No Chest tightness: No Coughing: No Hemoptysis: No Wheezing: No Fever/Chills: No Recent Respiratory Infection: No Unintentional weight loss: No Last 6 Encounter Wt Readings: Date: Wt: 01/23/2024 55.3 kg (122 lb) 12/24/2023 55.3 kg (122 lb) 12/18/2023 55.3 kg (122 lb) 10/17/2022 53.5 kg (118 lb) 07/12/2022 52.2 kg (115 lb) 08/14/2012 56.7 kg (125 lb) ECOG PERFORMANCE STATUS: 0- Fully active, able to carry on all pre-disease performance w/o restriction. Modified Medical [employer] [place] Dyspnea Scale (MMRC) I only get breathless with strenous exercise 0 PAST MEDICAL HISTORY Diagnosis Date Abnormal Pap smear 09/2008 LGSIL and Positive HPV Abnormal Pap smear 04/2009 HGSIL Encounter for insertion or removal of intrauterine contraceptive device 12/13/2008 Mirena Endometriosis Fibromyalgia 08/14/2012 Hypertension Palpitations S/P SHREE (total abdominal hysterectomy) 05/15/2010 PAST SURGICAL HISTORY Procedure Laterality Date APPENDECTOMY CONIZATION CERVIX W/WO DANDC RPR ELTRD EXC 06/21/2009 (LEEP) INSERT INTRAUTERINE DEVICE 12/13/2008 Mirena IUD REMOVAL 03/22/2010 LAPS ABD PRTMANDOMENTUM DX W/WO SPEC BR/WA SPX Laparoscopy TONSILLECTOMY PRIMARY/SECONDARY Tonsillectomy TOTAL ABDOMINAL HYSTERECT W/WO RMVL TUBE OVARY 05/15/2010 Dr. Dodd; Dysplasia, Metrorrhagia, Dysmenorrhea TRANSV CAROTID STENT PLACEMT 10/25/2023 [place] VAGINOSCOPY 02/01/2010 FAMILY HISTORY Problem Relation Age of Onset Hypertension Mother Coronary Artery Disease Maternal Grandfather Coronary Artery Disease Paternal Grandfather metoprolol succinate ER (TOPROL XL) 50 mg 24 hr tablet atorvastatin (LIPITOR) 40 mg tablet Take 1 tablet by mouth every afternoon. aspirin 81 mg chewable tablet CHEW 1 TABLET BY MOUTH EVERY DAY WITH A MEAL ticagrelor (BRILINTA) 90 mg tablet Take by mouth. pregabalin (LYRICA) 50 mg capsule Take 50 mg by mouth three times a day. sertraline (ZOLOFT) 50 mg tablet Take 50 mg by mouth three times a day. LYSINE ORAL Take by mouth. fluticasone propionate (FLONASE NASAL) Use in the nose. albuterol sulfate 90 mcg/actuation breath activated powder inhaler Inhale as instructed. nicotine (NICODERM CQ) 14 mg/24 hr Apply 1 Patch as directed every 24 hours. cyclobenzaprine (FLEXERIL) 5 mg tablet Take 1 tablet by mouth daily at bedtime. magnesium oxide (MAG-OX) 400 mg (241.3 mg magnesium) tablet Take 1 tablet by mouth twice daily. montelukast (SINGULAIR) 10 mg tablet Take 1 tablet by mouth daily at bedtime. Lactobac no.41/Bifidobact no.7 (PROBIOTIC-10 ORAL) Take by mouth. (Patient not taking: Reported on 01/23/2024) ALLERGIES Allergen Reactions Codeine Vomiting The medications and allergies were reviewed and reconciled for this patient and deemed current. Lung Cancer Risk Factors: 1.Tobacco Use: Start Age 26, Quit Age: 53, Average packs per day 0.75, Pack Years 20.25 2. Passive Smoke Exposure: Yes, as an Adult 3. Personal hx of malignancy: No, Type of Cancer: 4. Significant exposures (1 year or more of exposure): Other, Black mold 5. Race: White 6. Education: College Graduate 7. BMI:Body mass index is 20.3 kg/m?. Patient-entered Height: 5'5 Patient-entered Weight: 122 pounds 8. COPD: No 9. Pneumonia in the past 5 years: No 10. Is there a history of lung cancer in a first degree relative? No 11. Is there a history of lung cancer in a non-first degree relative? No 12. Is there a history of any other cancer in a first degree relative? No Health Maintenance There is no immunization history on file for this patient. Colonoscopy: Mammogram: 07/12/2023 DATA REVIEW I have directly visualized the testing documented:none Prior Imaging: Last CT/CTA Chest/Lungs No resulted procedures found. Last CT (more content not included)... [facility] 01-08-2024 [place] Telephone ([facility]) HOLDEN CHILDERS ([id number]) 1970 F Date Time Provider Department 01/08/24 ROSEMARIE SANABRIA [facility] During your visit today, we recorded the following information about you: Rosemarie Sanabria APRN.DIRECTOR PRODUCT 01/08/2024 3:38 PM Signed Recent HST 12/29/23 with non-diagnostic results. Called and discussed with patient - her biggest concern is excessive daytime sleepiness. Recommend in-lab PSG for more accurate evaluation. Discussed with Dr. Anderson and he agrees. Pt is scheduled for f/u with Dr. Anderson in February - will try to get pt scheduled for in-lab PSG prior to this visit. Sending message to Meagan for scheduling. Thank you! Rosemarie Sanabria APRN.DIRECTOR PRODUCT 01/08/2024 3:51 PM Signed Meagan Severino! Per Lesly, we need to make sure the sleep lab knows that this PSG needs prioritized for scoring, since the pt is scheduled to see Dr. Anderson on 03/11. Thanks again! Allergies As of Date: 01/08/2024 Noted Allergy Reaction CODEINE 12/18/2023 11 - Vomiting Date Reviewed: 12/24/2023 Reviewed by: Thu Boss MD - Fully Assessed Reason for Visit: Results [95] Cmt: PSG Primary Visit Diagnosis:ABBY (obstructive sleep apnea) [G47.33] Order(s):POLYSOMNOGR AM (PSG) [[id number]] Order #: [id number] FUTURE Prescriptions as of 01/08/2024 - metoprolol succinate ER (TOPROL XL) 50 mg 24 hr tablet - atorvastatin (LIPITOR) 40 mg tablet Take 1 tablet by mouth every afternoon. - aspirin 81 mg chewable tablet CHEW 1 TABLET BY MOUTH EVERY DAY WITH A MEAL - ticagrelor (BRILINTA) 90 mg tablet Take by mouth. - pregabalin (LYRICA) 50 mg capsule Take 50 mg by mouth three times a day. - sertraline (ZOLOFT) 50 mg tablet Take 50 mg by mouth three times a day. - LYSINE ORAL Take by mouth. - Lactobac no.41/Bifidobact no.7 (PROBIOTIC-10 ORAL) Take by mouth. - fluticasone propionate (FLONASE NASAL) Use in the nose. - albuterol sulfate 90 mcg/actuation breath activated powder inhaler Inhale as instructed. - nicotine (NICODERM CQ) 14 mg/24 hr Apply 1 Patch as directed every 24 hours. - cyclobenzaprine (FLEXERIL) 5 mg tablet Take 1 tablet by mouth daily at bedtime. - magnesium oxide (MAG-OX) 400 mg (241.3 mg magnesium) tablet Take 1 tablet by mouth twice daily. - montelukast (SINGULAIR) 10 mg tablet Take 1 tablet by mouth daily at bedtime. 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] 02/01/2010 Fibromyalgia [M79.7] 08/14/2012 Seasonal allergic rhinitis due to pollen [J30.1]07/12/2022 Chronic neck and back pain [M54.2, M54.9, G89.2*07/12/2022 Sinus headache [R51.9] 10/17/2022 Encounter Status:Closed by ROSEMARIE SANABRIA on 01/08/24 Normal [facility] CBC with AUTO DIFFon 024 BAS0 % 0.90 % Normal 0-2 [facility] Comment on above: Performed By: #### C BC #### [facility] [address] [place] [address] Basophils (Bld) [#/Vol] 0.1 10*3/uL Normal 0-0.1 [facility] Comment on above: Performed By: #### C BC #### [facility] [address] [place] [address] Eosinophils (Bld) [#/Vol] 0.2 10*3/uL Normal 0.0-1.80 [facility] Comment on above: Performed By: #### C BC #### [facility] [address] [place] [address] Eosinophils/100 WBC (Bld) 2.6 % Normal 0-8 [facility] Comment on above: Performed By: #### C BC #### [address] [place] [address] GRAN # 4.7 K/uL Normal 2.2-9.1 [facility] Comment on above: Performed By: #### C BC #### [facility] [address] [place] [address] GRAN % 70.3 % Normal 42-80 [facility] Comment on above: Performed By: #### C BC #### [facility] [address] [place] [address] Hematocrit (Bld) [Volume fraction] 38.9 % Normal 37.0-47.0 [facility] Comment on above: Performed By: #### C BC #### [facility] [address] [place] [address] Hemoglobin (Bld) [Mass/Vol] 13.3 g/dL Normal 12.0-16.0 [facility] Comment on above: Performed By: #### C BC #### [address] [place] [address] Lymphocytes (Bld) [#/Vol] 1.5 10*3/uL Normal 1.0-4.0 [facility] Comment on above: Performed By: #### C BC #### [address] [place] [address] Lymphocytes/100 WBC (Bld) 21.6 % Normal 16-48 [facility] Comment on above: Performed By: #### C BC #### [facility] [address] [place] [address] MCV (RBC) [Entitic vol] 91.9 fL Normal 80-97 [facility] Comment on above: Performed By: #### C BC #### [facility] [address] [place] [address] MEAN CORPUSCULAR HGB 31.4 pg Normal 26.0-32.0 [facility] Comment on above: Performed By: #### C BC #### [facility] [address] [place] [address] MEAN CORPUSCULAR HGB CONC 34.2 g/dL Normal 31.0-36.0 [facility] Comment on above: Performed By: #### C BC #### [facility] [address] [place] [address] MONO DISTRIB WIDTH Not performed Normal 0-20 [facility] Comment on above: Performed By: #### C BC #### [facility] [address] [place] [address] Monocytes (Bld) [#/Vol] 0.3 10*3/uL Normal 0.1-1.7 [facility] Comment on above: Performed By: #### C BC #### [facility] [address] [place] [address] Monocytes/100 WBC (Bld) 4.6 % Normal 3-9 [facility] Comment on above: Performed By: #### C BC #### [facility] [address] [place] [address] Platelet mean volume (Bld) [Entitic vol] 8.0 fL Normal 6.6-10.5 [facility] Comment on above: Performed By: #### C BC #### [facility] [address] [place] [address] Platelets (Bld) [#/Vol] 161 10*3/uL Normal 140-450 [facility] Comment on above: Performed By: #### C BC #### [facility] [address] [place] [address] RBC (Bld) [#/Vol] 4.23 10*6/uL Normal 4.20-5.50 [facility] Comment on above: Performed By: #### C BC #### [facility] [address] [place] [address] RED CELL DISTRI WIDTH 13.9 % Normal 11.0-15.5 [facility] Comment on above: Performed By: #### C BC #### [facility] [address] [place] [address] WBC (Bld) [#/Vol] 6.7 10*3/uL Normal 4.0-11.0 [facility] Comment on above: Performed By: #### C BC #### [facility] [address] [place] [address] COMPREHENSIVE METABOLIC PANE Werner 12-31-2023 Albumin [Mass/Vol] 4.3 g/dL Normal 3.4-5.0 [facility] Comment on above: Performed By: #### M N #### [facility] [address] [place] [address] Albumin/Globulin [Mass ratio] 1.2 {ratio} Normal 1.1-1.8 [facility] Comment on above: Performed By: #### M N #### [facility] [address] [place] [address] ALP [Catalytic activity/Vol] 83 U/L Normal 45-117 [facility] Comment on above: Performed By: #### M N #### [facility] [address] [place] [address] ALT [Catalytic activity/Vol] 31 U/L Normal 12-78 [facility] Comment on above: Performed By: #### M N #### [facility] [address] [place] [address] Anion gap [Moles/Vol] 9.9 mmol/L Low 11-23 [facility] Comment on above: Performed By: #### M N #### [facility] [address] [place] [address] AST [Catalytic activity/Vol] 23 U/L Normal 15-37 [facility] Comment on above: Performed By: #### M N #### [facility] [address] [place] [address] Bilirubin [Mass/Vol] 0.5 mg/dL Normal 0.2-1.0 [facility] Comment on above: Performed By: #### M N #### [facility] [address] [place] [address] Calcium [Mass/Vol] 9.8 mg/dL Normal 8.5-10.1 [facility] Comment on above: Performed By: #### M N #### [facility] [address] [place] [address] Chloride [Moles/Vol] 109 mmol/L High 98-107 [facility] Comment on above: Performed By: #### M N #### [facility] [address] [place] [address] CO2 [Moles/Vol] 25.0 mmol/L Normal 21-32 [facility] Comment on above: Performed By: #### M N #### [facility] [address] [place] [address] Creatinine [Mass/Vol] 0.80 mg/dL Normal 0.55-1.02 [facility] Comment on above: Performed By: #### M N #### [facility] [address] [place] [address] GFR > 60.0 [facility] Comment on above: Performed By: #### M N #### [address] [place] [address] GFR AM > 60.0 [facility] Comment on above: Result Comment: THE NORMAL LEVEL OF GFR VARIES ACCORDING TO AGE, SEX, AND BODY SIZE. A GFR LEVEL OF LESS THAN 60 ML/MIN REPRESENTS LOSS OF THE ADULT LEVEL OF NORMAL KIDNEY FUNCTION. Performed By: #### M N #### [address] [place] [address] Globulin (S) [Mass/Vol] 3.4 g/dL Normal 2.5-4.6 [facility] Comment on above: Performed By: #### M N #### [address] [place] [address] Glucose [Mass/Vol] 104 mg/dL High 70-100 [facility] Comment on above: Performed By: #### M N #### [address] [place] [address] Potassium [Moles/Vol] 4.0 mmol/L Normal 3.5-5.1 [facility] Comment on above: Performed By: #### M N #### [address] [place] [address] Protein [Mass/Vol] 7.7 g/dL Normal 6.0-8.3 [facility] Comment on above: Performed By: #### M N #### [address] [place] [address] Sodium [Moles/Vol] 140 mmol/L Normal 136-145 [facility] Comment on above: Performed By: #### M N #### [address] [place] [address] Urea nitrogen [Mass/Vol] 18.0 mg/dL Normal 7-18 [facility] Comment on above: Performed By: #### M N #### [address] [place] [address] DESIREEOVon 12-29-2023 CNOV Office Visit (GABBIE) HOLDEN CHILDERS ([id number]) 1970 F Date Time Provider Department 12/29/23 6:00 PM HST [facility] During your visit today, we recorded the following information about you: Abby Gould Rai 12/30/2023 5:49 PM Signed Sleep Study Check-In Documentation Date: December 30, 2023 Name: Holden Childers Patient was accompanied by Self. Location: [facility] Procedure was explained to the patient and all questions were answered. Study type: HST Adverse Event: No (If yes create a new abstract) Comments: HST device was returned and collected in working order. Patient was advised to follow-up on the result of the home sleep testing with their referring physician. Abby Gould Referring Provider: YUSUF ARITA [[id number]] Allergies As of Date: 12/29/2023 Noted Allergy Reaction CODEINE 12/18/2023 11 - Vomiting Date Reviewed: 12/24/2023 Reviewed by: Thu Boss MD - Fully Assessed Visit Diagnosis:Tobacco use disorder [F17.200] Order(s):HOME SLEEP APNEA TEST (HSAT) [8395533] Order #: [id number] Prescriptions as of 12/30/2023 - nitrofurantoin monohydrate and macrocrystal (MACROBID) 100 mg capsule Take 1 capsule by mouth two times a day for 7 days. For 7 days - cefUROXime (CEFTIN) 500 mg tablet Take 1 tablet by mouth two times a day for 7 days. - metoprolol succinate ER (TOPROL XL) 50 mg 24 hr tablet - atorvastatin (LIPITOR) 40 mg tablet Take 1 tablet by mouth every afternoon. - aspirin 81 mg chewable tablet CHEW 1 TABLET BY MOUTH EVERY DAY WITH A MEAL - ticagrelor (BRILINTA) 90 mg tablet Take by mouth. - pregabalin (LYRICA) 50 mg capsule Take 50 mg by mouth three times a day. - sertraline (ZOLOFT) 50 mg tablet Take 50 mg by mouth three times a day. - LYSINE ORAL Take by mouth. - Lactobac no.41/Bifidobact no.7 (PROBIOTIC-10 ORAL) Take by mouth. - fluticasone propionate (FLONASE NASAL) Use in the nose. - albuterol sulfate 90 mcg/actuation breath activated powder inhaler Inhale as instructed. - nicotine (NICODERM CQ) 14 mg/24 hr Apply 1 Patch as directed every 24 hours. - cyclobenzaprine (FLEXERIL) 5 mg tablet Take 1 tablet by mouth daily at bedtime. - magnesium oxide (MAG-OX) 400 mg (241.3 mg magnesium) tablet Take 1 tablet by mouth twice daily. - montelukast (SINGULAIR) 10 mg tablet Take 1 tablet by mouth daily at bedtime. Problem List As Of Date 12/29/2023 Noted Resolved Dysplasia of Cervix [N87.9] 02/01/2010 Fibromyalgia [M79.7] 08/14/2012 Seasonal allergic rhinitis due to pollen [J30.1]07/12/2022 Chronic neck and back pain [M54.2, M54.9, G89.2*07/12/2022 Sinus headache [R51.9] 10/17/2022 Encounter Status:Closed by ABBY GOULD on 12/30/23 [facility] 12-26-2023 [facility] Telephone ([id number]) HOLDEN CHILDERS ([id number]) 1970 F Date Time Provider Department 12/26/23 JENNIFER ARRIAGA [id number] During your visit today, we recorded the following information about you: Jennifer Arriaga APRN.[facility] 12/26/2023 1:05 PM Signed Urine was + but not sensitive to abx she was placed on at her appt. I sent in new rx below The following approved medication requests have been transmitted electronically. Requested Prescriptions Signed Prescriptions Disp Refills nitrofurantoin monohydrate and macrocrystal (MACROBID) 100 mg capsule 14 capsule 0 Sig: Take 1 capsule by mouth two times a day for 7 days. For 7 days Authorizing Provider: JENNIFER ARRIAGA APRN.Lidia Peterson MA 12/26/2023 1:07 PM Signed Left message for pt to call office. TUAN Michael Brooke, RN 12/26/2023 1:42 PM Signed Received patient's voicemail; Left message for patient to return call to office As no answer. RICHA Sagastume Deborah, MA 12/26/2023 1:[address] Boss gave her cefuroxime yesterday. Which one should she take Jennifer Arriaga APRN.[facility] 12/26/2023 1:56 PM Signed The cefuroxime was not sensitive. That's why I sent in a new rx per my message :) Jennifer Severino APRN.Barbra Wu MA 12/26/2023 2:05 PM Signed Patient was advised Allergies As of Date: 12/26/2023 Noted Allergy Reaction CODEINE 12/18/2023 11 - Vomiting Date Reviewed: 12/24/2023 Reviewed by: Thu Boss MD - Fully Assessed Reason for Visit: Results [95] Order(s):nitrofurant oin monohydrate and macrocrystal (MACROBID) 100 mg capsuleTake 1 capsule by mouth two times a day for 7 days. For 7 daysDisp: 14 capsuleRfl: 0 Prescriptions as of 12/26/2023 - nitrofurantoin monohydrate and macrocrystal (MACROBID) 100 mg capsule Take 1 capsule by mouth two times a day for 7 days. For 7 days - cefUROXime (CEFTIN) 500 mg tablet Take 1 tablet by mouth two times a day for 7 days. - metoprolol succinate ER (TOPROL XL) 50 mg 24 hr tablet - atorvastatin (LIPITOR) 40 mg tablet Take 1 tablet by mouth every afternoon. - aspirin 81 mg chewable tablet CHEW 1 TABLET BY MOUTH EVERY DAY WITH A MEAL - ticagrelor (BRILINTA) 90 mg tablet Take by mouth. - pregabalin (LYRICA) 50 mg capsule Take 50 mg by mouth three times a day. - sertraline (ZOLOFT) 50 mg tablet Take 50 mg by mouth three times a day. - LYSINE ORAL Take by mouth. - Lactobac no.41/Bifidobact no.7 (PROBIOTIC-10 ORAL) Take by mouth. - fluticasone propionate (FLONASE NASAL) Use in the nose. - albuterol sulfate 90 mcg/actuation breath activated powder inhaler Inhale as instructed. - nicotine (NICODERM CQ) 14 mg/24 hr Apply 1 Patch as directed every 24 hours. - cyclobenzaprine (FLEXERIL) 5 mg tablet Take 1 tablet by mouth daily at bedtime. - magnesium oxide (MAG-OX) 400 mg (241.3 mg magnesium) tablet Take 1 tablet by mouth twice daily. - montelukast (SINGULAIR) 10 mg tablet Take 1 tablet by mouth daily at bedtime. Problem List As Of Date 12/26/2023 Noted Resolved Dysplasia of Cervix [N87.9] 02/01/2010 Fibromyalgia [M79.7] 08/14/2012 Seasonal allergic rhinitis due to pollen [J30.1]07/12/2022 Chronic neck and back pain [M54.2, M54.9, G89.2*07/12/2022 Sinus headache [R51.9] 10/17/2022 Prescriptions ordered this encounter Disp Refills Start End NITROFURANTOIN MONOHYDRATE AND MACROCR* 14 c* 0 12/26/2023 01/02/2024 Route: ORAL Sig: Take 1 capsule by mouth two times a day for 7 days. For 7 days Encounter Status:Closed by JENNIFER ARRIAGA on 12/26/23 [facility] Bacteria Ur Culton 4 Bacteria identified Cx Nom (U) ORGANISM ID: 1 >=100,000 CFU/ml Escherichia coli ORGANISM ID: 1 (ESCHERICHIA COLI) ANTIBIOTIC INTERPRETATION KIANNA STATUS REFERENCE RANGE Ampicillin R >16 F Susceptible <=8 , Intermediate >8 , Resistant >16 Cefazolin R >16 F Susceptible 0-16 , Intermediate <0 or >16 , Resistant >16 For uncomplicated urinary tract infections, cefazolin results can be used to predict susceptibility or resistance to cephalexin. Ceftriaxone S <=1 F Susceptible <=1 , Intermediate >1 , Resistant >=4 Cefepime S <=1 F Susceptible <=2 , Susceptible-Dose Dependent >2 , Resistant >=16 Ertapenem S <=0.25 F Susceptible <=0.5 , Intermediate >.5 , Resistant >1 Meropenem S <=0.5 F Susceptible <=1 , Intermediate >1 , Resistant >2 Aztreonam S <=2 F Susceptible <=4 , Intermediate >4 , Resistant >=16 Ampicillin/Sulbact R >16 F Piperacillin/Tazobac S 8 F Gentamicin S <=2 F Susceptible <=4 , Intermediate >4 , Resistant >8 Trimeth sulfameth R >2 F Ciprofloxacin R >2 F Susceptible <0.5 , Intermediate >=.5 , Resistant >=1 Nitrofurantoin S <=16 F Susceptible <=32 , Intermediate >32 , Resistant >64 Abnormal [facility] Comment on above: Performed By: #### 6 30-4 #### [facility] CLIA [id number] [address] [id number] [place] CNOVon 12-24-2023 CNOV Office Visit (URCANT) HOLDEN CHILDERS ([id number]) 1970 F Date Time Provider Department 12/24/23 10:00 AM THU BOSS During your visit today, we recorded the following information about you: Pulse Blood pressure Weight Height 81/minute 110/73 55.3 kg 1.651 m Thu Boss MD 12/24/2023 11:01 AM Signed [facility] NEW PATIENT ENCOUNTER Consultation requested by Bautista Vilchis for an opinion regarding bladder thickening. My final recommendations will be communicated back to the requesting physician by way of shared Medical record or letter to requesting physician via US mail. HISTORY OF PRESENT ILLNESS: Patient presents with: Consult bladder wall thickening: New patient here for bladder WALL thickening. CT done Holden Childers is a 53 year old female who had a heart attack and eventual cath with vessel dissection and RP hematoma, ct had irregular bladder, Prior last 3-4mo new freq/urge slight more, no incont, never gross hematuria/stones, father had stones Jo over life time every few years, dysuria/freq/odor, Some dysuria yesterday Send cx and given cefuroxime 7d Plan cysto Review of Systems LAB No results found for: PSA, PSASC No results found for: CREAT GLUCOSE UA (POCT) (mg/dL) Date Value 12/24/2023 Negative BILIRUBIN UA (POCT) (no units) Date Value 12/24/2023 Negative KETONE UA (POCT) (mg/dL) Date Value 12/24/2023 Negative SPECIFIC GRAVITY UA (POCT) (no units) Date Value 12/24/2023 1.010 HEMOGLOBIN/BLOOD UA (POCT) (no units) Date Value 12/24/2023 Moderate (A) PH UA (POCT) (no units) Date Value 12/24/2023 6.5 PROTEIN UA (POCT) (mg/dL) Date Value 12/24/2023 Negative UROBILINOGEN UA (POCT) (E.U./dL) Date Value 12/24/2023 0.2 NITRITE UA (POCT) (no units) Date Value 12/24/2023 Negative LEUKOCYTES UA (POCT) (no units) Date Value 12/24/2023 Moderate (A) COLOR UA (POCT) (no units) Date Value 12/24/2023 Yellow CLARITY UA (POCT) (no units) Date Value 12/24/2023 Clear ] MEDICATIONS metoprolol succinate ER (TOPROL XL) 50 mg 24 hr tablet atorvastatin (LIPITOR) 40 mg tablet Take 1 tablet by mouth every afternoon. aspirin 81 mg chewable tablet CHEW 1 TABLET BY MOUTH EVERY DAY WITH A MEAL ticagrelor (BRILINTA) 90 mg tablet Take by mouth. pregabalin (LYRICA) 50 mg capsule Take 50 mg by mouth three times a day. sertraline (ZOLOFT) 50 mg tablet Take 50 mg by mouth three times a day. LYSINE ORAL Take by mouth. Lactobac no.41/Bifidobact no.7 (PROBIOTIC-10 ORAL) Take by mouth. fluticasone propionate (FLONASE NASAL) Use in the nose. albuterol sulfate 90 mcg/actuation breath activated powder inhaler Inhale as instructed. nicotine (NICODERM CQ) 14 mg/24 hr Apply 1 Patch as directed every 24 hours. magnesium oxide (MAG-OX) 400 mg (241.3 mg magnesium) tablet Take 1 tablet by mouth twice daily. cyclobenzaprine (FLEXERIL) 5 mg tablet Take 1 tablet by mouth daily at bedtime. montelukast (SINGULAIR) 10 mg tablet Take 1 tablet by mouth daily at bedtime. HISTORIES PAST MEDICAL HISTORY Diagnosis Date Abnormal Pap smear 09/2008 LGSIL and Positive HPV Abnormal Pap smear 04/2009 HGSIL Encounter for insertion or removal of intrauterine contraceptive device 12/13/2008 Mirena Endometriosis Fibromyalgia 08/14/2012 Hypertension Palpitations S/P SHREE (total abdominal hysterectomy) 05/15/2010 PAST SURGICAL HISTORY Procedure Laterality Date APPENDECTOMY CONIZATION CERVIX W/WO DANDC RPR ELTRD EXC 06/21/2009 (LEEP) INSERT INTRAUTERINE DEVICE 12/13/2008 Mirena IUD REMOVAL 03/22/2010 LAPS ABD PRTMANDOMENTUM DX W/WO SPEC BR/WA SPX Laparoscopy TONSILLECTOMY PRIMARY/SECONDARY Tonsillectomy TOTAL ABDOMINAL HYSTERECT W/WO RMVL TUBE OVARY 05/15/2010 Dr. Dodd; Dysplasia, Metrorrhagia, Dysmenorrhea TRANSV CAROTID STENT PLACEMT 10/25/2023 [place] VAGINOSCOPY 02/01/2010 FAMILY HISTORY Problem Relation Age of Onset Hypertension Mother Coronary Artery Disease Maternal Grandfather Coronary Artery Disease Paternal Grandfather SOCIAL HISTORY Social History Tobacco Use Smoking status: Former Packs/day: 0.50 Years: 27.00 Additional pack years: 0.00 Total pack years: 13.50 Types: Cigarettes Quit date: 10/25/2023 Years since quittin.1 Smokeless tobacco: Never Tobacco comments: Started smoking age 26 Vaping Use Vaping Use: Some days Substances: Nicotine, Flavoring Substance Use Topics Alcohol use: No Drug use: No BP 110/73 (BP Site: Left Arm, BP Cuff Size: Regular Adult) Pulse 81 Ht 165.1 cm (5' 5) Wt 55.3 kg (122 lb) LMP 04/16/2010 BMI 20.30 kg/m? Physical Exam ASSESSMENT AND PLAN ASSESSMENT/PLAN: 1. Bladder wall thickening [N32.89] - ICD9: 596.89, ICD10: N32.89 (primary diagnosis) Bladder changes prior to cath, plan cysto 2. Retroperit (more content not included)... Normal [facility] UA DIP, URINE (POC)on 2023 BILIRUBIN UA (POCT) Negative Negative [facility] CLARITY UA (POCT) Clear [facility] COLOR UA (POCT) Yellow [facility] GLUCOSE UA (POCT) Negative Negative mg/dL [facility] Hemoglobin Ql (U) Moderate Abnormal Negative [facility] Interpretation and review of laboratory results Abnormal [facility] KETONE UA (POCT) Negative Negative mg/dL [facility] LEUKOCYTES UA (POCT) Moderate Abnormal Negative [facility] NITRITE UA (POCT) Negative Negative [facility] PH UA (POCT) 6.5 4.5 - 8.0 [facility] Protein Ql (U) Negative Negative mg/dL [facility] SPECIFIC GRAVITY UA (POCT) 1.010 1.005 - 1.030 [facility] UROBILINOGEN UA (POCT) 0.2 Zaira l E.U./dL [facility] Location:[facility] [address], [address] [facility] POINT OF CARE [facility] CNOVon 12-18-2023 CNOV Office Visit (PLMCYM) HOLDEN CHILDERS ([id number]) 1970 F Date Time Provider Department 12/18/23 8:00 AM YUSUF ARITA PLYM During your visit today, we recorded the following information about you: Pulse Blood pressure Weight Height 75/minute 100/70 55.3 kg 1.651 m Yusuf Arita MD 12/18/2023 8:53 AM [facility] RESPIRATORY EARLY DEPARTMENT OF PULMONARY MEDICINE Date: December 18, 2023 Patient Name: Holden Childers PRIMARY CARE PHYSICIAN: Bautista Manzano MD REASON FOR CONSULT: Patient presents with: Sleep Apnea: States never feels rested, hard time staying asleep HPI: Holden is 53 year old female Used to smoked, until recently in 10/2023 quit after a heart attack She had PCI of the RCA at [place]. Since then she stopped smoking, she used to smoke a pack a day, for 30 years. She used to have an albuterol inhaler, as needed. But after her cardiac stent she has not needed it. She is not known to have any lung disease, no SOB, no hemoptysis, no cough. No asthma no COPD. She was referred for sleep apnea testing. Described as inability to maintain a full refreshing sleep throughout the night, but on different days she is able to sleep for much longer duration. She has anxiety, fibromyalgia. She reports daytime fatigue and excessive tiredness. No snoring, no report of gasping for air when asleep. Never had a sleep study +HTN. + age >50, +daytime fatigue. IMMUNIZATIONS: There is no immunization history on file for this patient. REVIEW OF SYSTEMS: 5 systems reviewed negative except as above PAST MEDICAL HISTORY Diagnosis Date Abnormal Pap smear 09/2008 LGSIL and Positive HPV Abnormal Pap smear 04/2009 HGSIL Encounter for insertion or removal of intrauterine contraceptive device 12/13/2008 Mirena Endometriosis Fibromyalgia 08/14/2012 Hypertension Palpitations S/P SHREE (total abdominal hysterectomy) 05/15/2010 PAST SURGICAL HISTORY Procedure Laterality Date APPENDECTOMY CONIZATION CERVIX W/WO DANDC RPR ELTRD EXC 06/21/2009 (LEEP) INSERT INTRAUTERINE DEVICE 12/13/2008 Mirena IUD REMOVAL 03/22/2010 LAPS ABD PRTMANDOMENTUM DX W/WO SPEC BR/WA SPX Laparoscopy TONSILLECTOMY PRIMARY/SECONDARY Tonsillectomy TOTAL ABDOMINAL HYSTERECT W/WO RMVL TUBE OVARY 05/15/2010 Dr. Dodd; Dysplasia, Metrorrhagia, Dysmenorrhea TRANSV CAROTID STENT PLACEMT 10/25/2023 [place] 02/01/2010 Social History Tobacco Use Smoking status: Former Packs/day: 0.50 Years: 27.00 Additional pack years: 0.00 Total pack years: 13.50 Types: Cigarettes Quit date: 10/25/2023 Years since quittin.1 Smokeless tobacco: Never Tobacco comments: Started smoking age 26 Vaping Use Vaping Use: Some days Substances: Nicotine, Flavoring Substance Use Topics Alcohol use: No Drug use: No FAMILY HISTORY Problem Relation Age of Onset Hypertension Mother Coronary Artery Disease Maternal Grandfather Coronary Artery Disease Paternal Grandfather PHYSICAL EXAMINATION: VITALS:BP 100/70 Pulse 75 Ht 5' 5 (1.65m) Wt 122 lb (55.3kg) SpO2 98% LMP 04/16/2010 BMI 20.30 kg/(m2). Gen: Alert AND Oriented x 3, No acute distress HEENT: Mallampati 1, No Oral thrush, moist mucous membranes Neck: Supple, no rigidity, Trachea is midline, no Lymphadenopathy Lungs: Clear to Auscultation bilaterally , No wheezing, rhonchi or rales Heart: Regular Rate and Rhythm, Normal S1 and S2, no murmurs Abd: Soft, Nontender and not distended Ext: No edema Neuro: CN II - XII grossly intact, no sensory/motor deficits noted Laboratory and Imaging: Last Spirometry No resulted procedures found. Arterial blood gas: No results found for: PH, PCO2, PO2, HCO3, BE, LACT CT Chest other findings: Last CT Chest - Impression Only No resulted procedures found. Last XR Chest - Impression Only No resulted procedures found. ASSESSMENT and PLAN: ASSESSMENT/PLAN: 1. Tobacco use disorder - ICD9: 305.1, ICD10: F17.200 - Cessation encouraged. - Physiologic and physical aspects of tobacco addiction as well as strategies for quitting were discussed. - Counseling was given focusing on the harmful effects of this addiction especially given the patient's medical condition(s) which will be worsened because of the chemicals in tobacco. Concern about neuropsychiatric side of effects of chantix Willing to try nicotine patch, send to pharmacy Discussed PFT if she get SOB/Wheezing/Cough to investigate COPD, currently she feels ok, deferred - HOME SLEEP APNEA TEST (HSAT) - CONSULT [facility] 2. Sleep disorder 3 risk factors on STOPBANG Age, HTN, and Tiredness/fatigue Never had a sleep study I explained to the patient that I am not a sleep specialist I asked the staff to schedule her follow up with one of our sleep physician To start the pr (more content not included)... [facility] Valentine 12-10-2023 ELMER Telephone (URCANT) HOLDEN CHILDERS ([id number]) 1970 F Date Time Provider Department 12/10/23 ANDRZEJ MARSH During your visit today, we recorded the following information about you: Frances Crocker 12/10/2023 3:47 PM Signed Returned patient's VM to schedule for referral Left message Allergies As of Date: 12/10/2023 (No Known Allergies) Date Reviewed: 10/17/2022 Reviewed by: Prerna Queen LPN - Fully Assessed Reason for Visit: Appointment [[id number]] Prescriptions as of 12/10/2023 - cyclobenzaprine (FLEXERIL) 5 mg tablet Take 1 tablet by mouth daily at bedtime. - magnesium oxide (MAG-OX) 400 mg (241.3 mg magnesium) tablet Take 1 tablet by mouth twice daily. - meloxicam (MOBIC) 15 mg tablet Take 15 mg by mouth once daily. - omeprazole (PRILOSEC) 20 mg capsule Take 20 mg by mouth once daily. - topiramate (TOPAMAX) 50 mg tablet Take 1 tablet by mouth twice daily. - propranolol ER (INDERAL LA) 60 mg 24 hr capsule Take 60 mg by mouth once daily. - diazePAM (VALIUM) 5 mg tablet TAKE 1 TABLET BY MOUTH AT BEDTIME NEEDED FOR ANXIETY OR SLEEP - montelukast (SINGULAIR) 10 mg tablet Take 1 tablet by mouth daily at bedtime. - DULoxetine (CYMBALTA) 60 mg capsule Take 60 mg by mouth once daily. Problem List As Of Date 12/10/2023 Noted Resolved Dysplasia of Cervix [N87.9] 02/01/2010 Fibromyalgia [M79.7] 08/14/2012 Seasonal allergic rhinitis due to pollen [J30.1]07/12/2022 Chronic neck and back pain [M54.2, M54.9, G89.2*07/12/2022 Sinus headache [R51.9] 10/17/2022 Encounter Status:Closed by FRANCES CROCKER on 12/10/23 [facility] Cult,Urineon 11-16-2023 Cult,Urine Specimen Description .CLEAN CATCH URINE Culture NO GROWTH Report Status FINAL 11/16/2023 Normal [facility] Comment on above: Performed By: #### U RC #### [address] [place] [address] Orderly: Russ Seth MD Urinalysis, Routineon 2023 Bilirubin, SemiQt,Ur Negative Normal NEG [facility] Comment on above: Performed By: #### U A #### [address] [place] [address] Orderly: Russ Seth MD Blood, Urine Negative Normal NEG [facility] Comment on above: Performed By: #### U A #### [address] [place] [address] Orderly: Russ Seth MD Clarity (U) Clear Normal CLEAR [facility] Comment on above: Performed By: #### U A #### [address] [address] Orderly: Russ Seth MD Color (U) Yellow Normal YEL [facility] Comment on above: Performed By: #### U A #### [address] [address] Orderly: Russ Seth MD Comment Microscopic exam not performed based on chemical results unless requested in Normal [facility] Comment on above: Result Comment: orig inal order. Performed By: #### U A #### [address] [address] Orderly: Russ Seth MD Glucose Ql (U) Negative Normal NEG [facility] Comment on above: Performed By: #### U A #### [address] [address] Orderly: Russ Seth MD Ketones Ql (U) Negative Normal NEG [facility] Comment on above: Performed By: #### U A #### [address] [address] Orderly: Russ Seth MD Leukocyte esterase Test strip Ql (U) Negative Normal NEG [facility] Comment on above: Performed By: #### U A #### [address] [address] Orderly: Russ Seth MD Nitrite,Ur Negative Normal NEG [facility] Comment on above: Performed By: #### U A #### [place] [address] Orderly: Russ Seth MD PH,Ur 7.0 Normal 5.0-9.0 [facility] Comment on above: Performed By: #### U A #### [address] [address] Orderly: Russ Seth MD Protein Ql (U) Negative Normal NEG [facility] Comment on above: Performed By: #### U A #### [address] [address] Orderly: Russ Seth MD Spec. Epworth,Ur 1.010 Normal 1.005-1.030 [facility] Comment on above: Performed By: #### U A #### [address] [address] Orderly: Russ Seth MD Urobilinogen,Ur 0.2 EU/dL Normal 0.0-1.0 [facility] Comment on above: Performed By: #### U A #### [address] [address] Orderly: Russ Seth MD .Auto Diffon 11-05-2023 Basophil, Absolute 0.1 10 3/mcL Normal 0.0-0.3 [facility] ([place]) Comment on above: Performed By: #### C AION, GFR, PBNP, ADIFF, CMP, A1C, MG, ANEU, TSH, PHOS, MORPH, CBC, TROPHS #### [address] [address] Basophils/100 WBC (Bld) 0.9 % Normal 0.0-2.5 [facility] ([place]) Comment on above: Performed By: #### C AION, GFR, PBNP, ADIFF, CMP, A1C, MG, ANEU, TSH, PHOS, MORPH, CBC, TROPHS #### [address] [address] Eosinophil, Absolute 0.3 10 3/mcL Normal 0.0-0.7 On license of [facility] ([place]) Comment on above: Performed By: #### C AION, GFR, PBNP, ADIFF, CMP, A1C, MG, ANEU, TSH, PHOS, MORPH, CBC, TROPHS #### [address] [address] Eosinophils/100 WBC (Bld) 3.6 % Normal 0.0-6.0 [facility] ([place]) Comment on above: Performed By: #### C AION, GFR, PBNP, ADIFF, CMP, A1C, MG, ANEU, TSH, PHOS, MORPH, CBC, TROPHS #### [address] [address] Lymphocyte, Absolute 1.8 10 3/mcL Normal 0.9-4.3 On license of [facility] ([place]) Comment on above: Performed By: #### C AION, GFR, PBNP, ADIFF, CMP, A1C, MG, ANEU, TSH, PHOS, MORPH, CBC, TROPHS #### [address] [address] Lymphocytes/100 WBC (Bld) 20.7 % Normal 20.0-40.0 [facility] ([place] Comment on above: Performed By: #### C AION, GFR, PBNP, ADIFF, CMP, A1C, MG, ANEU, TSH, PHOS, MORPH, CBC, TROPHS #### [address] [address] Monocyte, Absolute 0.6 10 3/mcL Normal 0.1-1.4 [facility] ([place] Comment on above: Performed By: #### C AION, GFR, PBNP, ADIFF, CMP, A1C, MG, ANEU, TSH, PHOS, MORPH, CBC, TROPHS #### [address] [address] Monocytes/100 WBC (Bld) 7.1 % Normal 2.0-13.0 [facility] ([place]) Comment on above: Performed By: #### C AION, GFR, PBNP, ADIFF, CMP, A1C, MG, ANEU, TSH, PHOS, MORPH, CBC, TROPHS #### [place] [id number] Neutrophils/100 WBC (Bld) 67.7 % Normal 50.0-75.0 [facility] ([place] Comment on above: Performed By: #### C AION, GFR, PBNP, ADIFF, CMP, A1C, MG, ANEU, TSH, PHOS, MORPH, CBC, TROPHS #### [address] [address] .NEUABSon 11-05-2023 Neutrophil, Absolute 5.7 10 3/mcL Normal 2.3-8.1 On license of [facility] ([place]) Comment on above: Performed By: #### C AION, GFR, PBNP, ADIFF, CMP, A1C, MG, ANEU, TSH, PHOS, MORPH, CBC, TROPHS #### [place] [address] CBCon 11-05-2023 Erythrocyte distribution width (RBC) [Ratio] 14.8 % Normal 11.5-15.5 [facility] ([place] Comment on above: Performed By: #### C AION, GFR, PBNP, ADIFF, CMP, A1C, MG, ANEU, TSH, PHOS, MORPH, CBC, TROPHS #### [place] [address] Hematocrit (Bld) [Volume fraction] 36.2 % Normal 34.0-46.0 [facility] ([place] Comment on above: Performed By: #### C AION, GFR, PBNP, ADIFF, CMP, A1C, MG, ANEU, TSH, PHOS, MORPH, CBC, TROPHS #### [place] [address] Hgb 12.4 G/dL Normal 12.0-16.0 [facility] ([place] Comment on above: Performed By: #### C AION, GFR, PBNP, ADIFF, CMP, A1C, MG, ANEU, TSH, PHOS, MORPH, CBC, TROPHS #### [place] [id number] MCH (RBC) [Entitic mass] 31.5 pg Normal 27.0-33.0 [facility] ([place] Comment on above: Performed By: #### C AION, GFR, PBNP, ADIFF, CMP, A1C, MG, ANEU, TSH, PHOS, MORPH, CBC, TROPHS #### [place] [id number] MCHC 34.2 G/dL Normal 32.0-36.0 [facility] ([place] Comment on above: Performed By: #### C AION, GFR, PBNP, ADIFF, CMP, A1C, MG, ANEU, TSH, PHOS, MORPH, CBC, TROPHS #### [place] [address] MCV (RBC) [Entitic vol] 92.1 fL Normal 80.0-99.0 A [facility] ([place] Comment on above: Performed By: #### C AION, GFR, PBNP, ADIFF, CMP, A1C, MG, ANEU, TSH, PHOS, MORPH, CBC, TROPHS #### [place] [address] Platelet 308 10 3/mcL Normal 150-450 [facility] ([place] Comment on above: Performed By: #### C AION, GFR, PBNP, ADIFF, CMP, A1C, MG, ANEU, TSH, PHOS, MORPH, CBC, TROPHS #### [place] [address] Platelet mean volume (Bld) [Entitic vol] 7.6 fL Normal 6.6-10.5 [facility] ([place] Comment on above: Performed By: #### C AION, GFR, PBNP, ADIFF, CMP, A1C, MG, ANEU, TSH, PHOS, MORPH, CBC, TROPHS #### [place] [address] RBC 3.94 10 6/mcL Low 4.10-5.30 [facility] ([place] Comment on above: Performed By: #### C AION, GFR, PBNP, ADIFF, CMP, A1C, MG, ANEU, TSH, PHOS, MORPH, CBC, TROPHS #### [address] [address] WBC 8.5 10 3/mcL Normal 4.5-10.8 [facility] ([place] Comment on above: Performed By: #### C AION, GFR, PBNP, ADIFF, CMP, A1C, MG, ANEU, TSH, PHOS, MORPH, CBC, TROPHS #### [address] [address] .Auto Diffon 10-27-2023 Basophil, Absolute 0.1 10 3/mcL Normal 0.0-0.3 [facility] ([place] Comment on above: Performed By: #### C AION, GFR, PBNP, ADIFF, CMP, A1C, MG, ANEU, TSH, PHOS, MORPH, CBC, TROPHS #### [address] [address] Basophils/100 WBC (Bld) 0.6 % Normal 0.0-2.5 [facility] ([place] Comment on above: Performed By: #### C AION, GFR, PBNP, ADIFF, CMP, A1C, MG, ANEU, TSH, PHOS, MORPH, CBC, TROPHS #### [address] [address] Eosinophil, Absolute 0.0 10 3/mcL Normal 0.0-0.7 On license of [facility] ([place] Comment on above: Performed By: #### C AION, GFR, PBNP, ADIFF, CMP, A1C, MG, ANEU, TSH, PHOS, MORPH, CBC, TROPHS #### [address] [address] Eosinophils/100 WBC (Bld) 0.4 % Normal 0.0-6.0 [facility] [place] Comment on above: Performed By: #### C AION, GFR, PBNP, ADIFF, CMP, A1C, MG, ANEU, TSH, PHOS, MORPH, CBC, TROPHS #### [address] [address] Lymphocyte, Absolute 1.4 10 3/mcL Normal 0.9-4.3 On license of [facility] ([place] Comment on above: Performed By: #### C AION, GFR, PBNP, ADIFF, CMP, A1C, MG, ANEU, TSH, PHOS, MORPH, CBC, TROPHS #### [address] [address] Lymphocytes/100 WBC (Bld) 12.6 % Low 20.0-40.0 [facility] [place] Comment on above: Performed By: #### C AION, GFR, PBNP, ADIFF, CMP, A1C, MG, ANEU, TSH, PHOS, MORPH, CBC, TROPHS #### [address] [address] Monocyte, Absolute 1.1 10 3/mcL Normal 0.1-1.4 [facility] ([place] Comment on above: Performed By: #### C AION, GFR, PBNP, ADIFF, CMP, A1C, MG, ANEU, TSH, PHOS, MORPH, CBC, TROPHS #### [address] [address] Monocytes/100 WBC (Bld) 10.2 % Normal 2.0-13.0 [facility] ([place]) Comment on above: Performed By: #### C AION, GFR, PBNP, ADIFF, CMP, A1C, MG, ANEU, TSH, PHOS, MORPH, CBC, TROPHS #### [address] [address] Neutrophils/100 WBC (Bld) 76.2 % High 50.0-75.0 [facility] ([place] Comment on above: Performed By: #### C AION, GFR, PBNP, ADIFF, CMP, A1C, MG, ANEU, TSH, PHOS, MORPH, CBC, TROPHS #### [address] [address] Basophil, Absolute 0.0 10 3/mcL Normal 0.0-0.3 [facility] ([place] Comment on above: Performed By: #### C AION, GFR, PBNP, ADIFF, CMP, A1C, MG, ANEU, TSH, PHOS, MORPH, CBC, TROPHS #### [address] [address] Basophils/100 WBC (Bld) 0.4 % Normal 0.0-2.5 [facility] ([place] Comment on above: Performed By: #### C AION, GFR, PBNP, ADIFF, CMP, A1C, MG, ANEU, TSH, PHOS, MORPH, CBC, TROPHS #### [address] [address] Eosinophil, Absolute 0.0 10 3/mcL Normal 0.0-0.7 On license of [facility] ([place]) Comment on above: Performed By: #### C AION, GFR, PBNP, ADIFF, CMP, A1C, MG, ANEU, TSH, PHOS, MORPH, CBC, TROPHS #### [address] [address] Eosinophils/100 WBC (Bld) 0.3 % Normal 0.0-6.0 [facility] ([place]) Comment on above: Performed By: #### C AION, GFR, PBNP, ADIFF, CMP, A1C, MG, ANEU, TSH, PHOS, MORPH, CBC, TROPHS #### [address] [address] Lymphocyte, Absolute 1.6 10 3/mcL Normal 0.9-4.3 On license of [facility] ([place]) Comment on above: Performed By: #### C AION, GFR, PBNP, ADIFF, CMP, A1C, MG, ANEU, TSH, PHOS, MORPH, CBC, TROPHS #### [address] [address] Lymphocytes/100 WBC (Bld) 14.6 % Low 20.0-40.0 [facility] ([place]) Comment on above: Performed By: #### C AION, GFR, PBNP, ADIFF, CMP, A1C, MG, ANEU, TSH, PHOS, MORPH, CBC, TROPHS #### [address] [address] Monocyte, Absolute 1.1 10 3/mcL Normal 0.1-1.4 [facility] ([place]) Comment on above: Performed By: #### C AION, GFR, PBNP, ADIFF, CMP, A1C, MG, ANEU, TSH, PHOS, MORPH, CBC, TROPHS #### [address] [address] Monocytes/100 WBC (Bld) 10.3 % Normal 2.0-13.0 [facility] ([place] Comment on above: Performed By: #### C AION, GFR, PBNP, ADIFF, CMP, A1C, MG, ANEU, TSH, PHOS, MORPH, CBC, TROPHS #### [address] [address] Neutrophils/100 WBC (Bld) 74.4 % Normal 50.0-75.0 [facility] [place] Comment on above: Performed By: #### C AION, GFR, PBNP, ADIFF, CMP, A1C, MG, ANEU, TSH, PHOS, MORPH, CBC, TROPHS #### [address] [address] .GFRon 10-27-2023 GFR Non- >60 Normal [facility] ([place] Comment on above: Result Comment: GFR Population mean for , Non- Americans Ages 20-29 = 116 mL/min/1.73 sq.m. Ages 30-39 = 107 mL/min/1.73 sq.m. Ages 40-49 = 99 mL/min/1.73 sq.m. Ages 50-59 = 93 mL/min/1.73 sq.m. Ages 60-69 = 85 mL/min/1.73 sq.m. Ages 70+ = 75 mL/min/1.73 sq.m. Chronic Kidney Disease: Less than 60 mL/min/1.73 square meters End Stage Renal Disease: Less than 15 mL/min/1.73 square meters Performed By: #### C AION, GFR, PBNP, ADIFF, CMP, A1C, MG, ANEU, TSH, PHOS, MORPH, CBC, TROPHS #### [address] [address] GFR >60 Normal [facility] ([place]) Comment on above: Result Comment: GFR Population mean for , Non- Americans Ages 20-29 = 116 mL/min/1.73 sq.m. Ages 30-39 = 107 mL/min/1.73 sq.m. Ages 40-49 = 99 mL/min/1.73 sq.m. Ages 50-59 = 93 mL/min/1.73 sq.m. Ages 60-69 = 85 mL/min/1.73 sq.m. Ages 70+ = 75 mL/min/1.73 sq.m. Chronic Kidney Disease: Less than 60 mL/min/1.73 square meters End Stage Renal Disease: Less than 15 mL/min/1.73 square meters Performed By: #### C AION, GFR, PBNP, ADIFF, CMP, A1C, MG, ANEU, TSH, PHOS, MORPH, CBC, TROPHS #### [address] [address] .NEUABSon 10-27-2023 Neutrophil, Absolute 8.4 10 3/mcL High 2.3-8.1 On license of [facility] ([place]) Comment on above: Performed By: #### C AION, GFR, PBNP, ADIFF, CMP, A1C, MG, ANEU, TSH, PHOS, MORPH, CBC, TROPHS #### [place] [address] Neutrophil, Absolute 8.3 10 3/mcL High 2.3-8.1 On license of [facility] ([place]) Comment on above: Performed By: #### C AION, GFR, PBNP, ADIFF, CMP, A1C, MG, ANEU, TSH, PHOS, MORPH, CBC, TROPHS #### [address] [address] BMPon 10-27-2023 BUN/Creatinine Ratio 14.3 ratio Normal 10.0-22.0 [facility] ([place] Comment on above: Performed By: #### C AION, GFR, PBNP, ADIFF, CMP, A1C, MG, ANEU, TSH, PHOS, MORPH, CBC, TROPHS #### [address] [address] Calcium [Mass/Vol] 8.4 mg/dL Low 8.7-10.4 [facility] ([place]) Comment on above: Performed By: #### C AION, GFR, PBNP, ADIFF, CMP, A1C, MG, ANEU, TSH, PHOS, MORPH, CBC, TROPHS #### [address] [address] Chloride [Moles/Vol] 113 mmol/L High 98-110 [facility] ([place]) Comment on above: Performed By: #### C AION, GFR, PBNP, ADIFF, CMP, A1C, MG, ANEU, TSH, PHOS, MORPH, CBC, TROPHS #### [address] [address] CO2 [Moles/Vol] 25 mmol/L Normal 22-32 [facility] ([place] Comment on above: Performed By: #### C AION, GFR, PBNP, ADIFF, CMP, A1C, MG, ANEU, TSH, PHOS, MORPH, CBC, TROPHS #### [address] [address] Creatinine [Mass/Vol] 0.63 mg/dL Normal 0.50-1.20 [facility] ([place]) Comment on above: Performed By: #### C AION, GFR, PBNP, ADIFF, CMP, A1C, MG, ANEU, TSH, PHOS, MORPH, CBC, TROPHS #### [address] [address] Electrolyte Balance 6.0 mEq/L Normal 4.0-15.0 [facility] ([place]) Comment on above: Performed By: #### C AION, GFR, PBNP, ADIFF, CMP, A1C, MG, ANEU, TSH, PHOS, MORPH, CBC, TROPHS #### [address] [address] Glucose [Mass/Vol] 99 mg/dL Normal 70-110 [facility] ([place] Comment on above: Performed By: #### C AION, GFR, PBNP, ADIFF, CMP, A1C, MG, ANEU, TSH, PHOS, MORPH, CBC, TROPHS #### [address] [address] Potassium [Moles/Vol] 3.7 mmol/L Normal 3.5-5.0 [facility] ([place] Comment on above: Performed By: #### C AION, GFR, PBNP, ADIFF, CMP, A1C, MG, ANEU, TSH, PHOS, MORPH, CBC, TROPHS #### [address] [address] Sodium [Moles/Vol] 144 mmol/L Normal 136-145 [facility] ([place] Comment on above: Performed By: #### C AION, GFR, PBNP, ADIFF, CMP, A1C, MG, ANEU, TSH, PHOS, MORPH, CBC, TROPHS #### [address] [address] Urea nitrogen [Mass/Vol] 9.0 mg/dL Normal 8.0-22.0 [facility] ([place] Comment on above: Performed By: #### C AION, GFR, PBNP, ADIFF, CMP, A1C, MG, ANEU, TSH, PHOS, MORPH, CBC, TROPHS #### [address] [address] CBCon 10-27-2023 Erythrocyte distribution width (RBC) [Ratio] 15.2 % Normal 11.5-15.5 [facility] ([place] Comment on above: Performed By: #### C AION, GFR, PBNP, ADIFF, CMP, A1C, MG, ANEU, TSH, PHOS, MORPH, CBC, TROPHS #### [place] [id number] Hematocrit (Bld) [Volume fraction] 28.2 % Low 34.0-46.0 [facility] ([place] Comment on above: Performed By: #### C AION, GFR, PBNP, ADIFF, CMP, A1C, MG, ANEU, TSH, PHOS, MORPH, CBC, TROPHS #### [address] [address] Hgb 9.6 G/dL Low 12.0-16.0 [facility] ([place] Comment on above: Performed By: #### C AION, GFR, PBNP, ADIFF, CMP, A1C, MG, ANEU, TSH, PHOS, MORPH, CBC, TROPHS #### [address] [address] MCH (RBC) [Entitic mass] 30.4 pg Normal 27.0-33.0 [facility] ([place] Comment on above: Performed By: #### C AION, GFR, PBNP, ADIFF, CMP, A1C, MG, ANEU, TSH, PHOS, MORPH, CBC, TROPHS #### [place] [id number] MCHC 34.1 G/dL Normal 32.0-36.0 [facility] ([place] Comment on above: Performed By: #### C AION, GFR, PBNP, ADIFF, CMP, A1C, MG, ANEU, TSH, PHOS, MORPH, CBC, TROPHS #### [place] [address] MCV (RBC) [Entitic vol] 89.2 fL Normal 80.0-99.0 [facility] ([place] Comment on above: Performed By: #### C AION, GFR, PBNP, ADIFF, CMP, A1C, MG, ANEU, TSH, PHOS, MORPH, CBC, TROPHS #### [place] [address] Platelet 123 10 3/mcL Low 150-450 [facility] ([place] Comment on above: Performed By: #### C AION, GFR, PBNP, ADIFF, CMP, A1C, MG, ANEU, TSH, PHOS, MORPH, CBC, TROPHS #### [place] [address] Platelet mean volume (Bld) [Entitic vol] 8.3 fL Normal 6.6-10.5 [facility] [place] Comment on above: Performed By: #### C AION, GFR, PBNP, ADIFF, CMP, A1C, MG, ANEU, TSH, PHOS, MORPH, CBC, TROPHS #### [place] [address] RBC 3.16 10 6/mcL Low 4.10-5.30 [facility] ([place] Comment on above: Performed By: #### C AION, GFR, PBNP, ADIFF, CMP, A1C, MG, ANEU, TSH, PHOS, MORPH, CBC, TROPHS #### [address] [address] WBC 11.0 10 3/mcL High 4.5-10.8 [facility] [place] Comment on above: Performed By: #### C AION, GFR, PBNP, ADIFF, CMP, A1C, MG, ANEU, TSH, PHOS, MORPH, CBC, TROPHS #### [place] [id number] Erythrocyte distribution width (RBC) [Ratio] 15.2 % Normal 11.5-15.5 [facility] ([place] Comment on above: Performed By: #### C AION, GFR, PBNP, ADIFF, CMP, A1C, MG, ANEU, TSH, PHOS, MORPH, CBC, TROPHS #### [place] [address] Hematocrit (Bld) [Volume fraction] 28.4 % Low 34.0-46.0 [facility] [place] Comment on above: Performed By: #### C AION, GFR, PBNP, ADIFF, CMP, A1C, MG, ANEU, TSH, PHOS, MORPH, CBC, TROPHS #### [place] [address] Hgb 9.8 G/dL Low 12.0-16.0 [facility] [place] Comment on above: Performed By: #### C AION, GFR, PBNP, ADIFF, CMP, A1C, MG, ANEU, TSH, PHOS, MORPH, CBC, TROPHS #### [place] [address] MCH (RBC) [Entitic mass] 30.8 pg Normal 27.0-33.0 [facility] [place] Comment on above: Performed By: #### C AION, GFR, PBNP, ADIFF, CMP, A1C, MG, ANEU, TSH, PHOS, MORPH, CBC, TROPHS #### [place] [id number] MCHC 34.5 G/dL Normal 32.0-36.0 [facility] [place] Comment on above: Performed By: #### C AION, GFR, PBNP, ADIFF, CMP, A1C, MG, ANEU, TSH, PHOS, MORPH, CBC, TROPHS #### [place] [id number] MCV (RBC) [Entitic vol] 89.4 fL Normal 80.0-99.0 [facility] ([place] Comment on above: Performed By: #### C AION, GFR, PBNP, ADIFF, CMP, A1C, MG, ANEU, TSH, PHOS, MORPH, CBC, TROPHS #### [place] [address] Platelet 126 10 3/mcL Low 150-450 [facility] ([place]) Comment on above: Performed By: #### C AION, GFR, PBNP, ADIFF, CMP, A1C, MG, ANEU, TSH, PHOS, MORPH, CBC, TROPHS #### [place] [id number] Platelet mean volume (Bld) [Entitic vol] 8.5 fL Normal 6.6-10.5 [facility] ([place]) Comment on above: Performed By: #### C AION, GFR, PBNP, ADIFF, CMP, A1C, MG, ANEU, TSH, PHOS, MORPH, CBC, TROPHS #### [place] [address] RBC 3.18 10 6/mcL Low 4.10-5.30 [facility] ([place]) Comment on above: Performed By: #### C AION, GFR, PBNP, ADIFF, CMP, A1C, MG, ANEU, TSH, PHOS, MORPH, CBC, TROPHS #### [place] [address] WBC 11.1 10 3/mcL High 4.5-10.8 [facility] ([place]) Comment on above: Performed By: #### C AION, GFR, PBNP, ADIFF, CMP, A1C, MG, ANEU, TSH, PHOS, MORPH, CBC, TROPHS #### [place] [address] LABORATORYOrdered By: SYSTEM SYSTEM on 10-27-2023 Basophils (Bld) [#/Vol] 0.1 103/mcL Normal 0.0 - 0.3 10^3/mcL [facility] Basophils/100 WBC (Bld) 0.6 % Normal 0.0 - 2.5 % [facility] Eosinophils (Bld) [#/Vol] 0.0 103/mcL Normal 0.0 - 0.7 10^3/mcL [facility] Eosinophils/100 WBC (Bld) 0.4 % Normal 0.0 - 6.0 % [facility] Erythrocyte distribution width (RBC) [Ratio] 15.2 % Normal 11.5 - 15.5 % [facility] Hematocrit (Bld) [Volume fraction] 28.2 % Low 34.0 - 46.0 % [facility] Hemoglobin (Bld) [Mass/Vol] 9.6 G/dL Low 12.0 - 16.0 G/dL [facility] Lymphocytes (Bld) [#/Vol] 1.4 103/mcL Normal 0.9 - 4.3 10^3/mcL [facility] Lymphocytes/100 WBC (Bld) 12.6 % Low 20.0 - 40.0 % [facility] MCH (RBC) [Entitic mass] 30.4 pg Normal 27.0 - 33.0 pg [facility] MCHC 34.1 G/dL Normal 32.0 - 36.0 G/dL [facility] MCV (RBC) [Entitic vol] 89.2 fL Normal 80.0 - 99.0 fL [facility]flow [facility] Monocytes (Bld) [#/Vol] 1.1 103/mcL Normal 0.1 - 1.4 10^3/mcL [facility] Monocytes/100 WBC (Bld) 10.2 % Normal 2.0 - 13.0 % [facility] Neutrophils (Bld) [#/Vol] 8.4 103/mcL High 2.3 - 8.1 10^3/mcL [facility] Neutrophils/100 WBC (Bld) 76.2 % High 50.0 - 75.0 % [facility] Platelet mean volume (Bld) [Entitic vol] 8.3 fL Normal 6.6 - 10.5 fL [facility] Platelets (Bld) [#/Vol] 123 103/mcL Low 150 - 450 10^3/mcL [facility]flow [facility] RBC (Bld) [#/Vol] 3.16 106/mcL Low 4.10 - 5.3 0 10^6/mcL AH Workflow SS WBC (Bld) [#/Vol] 11.0 103/mcL High 4.5 - 10.8 10^3/mcL AH Workflow SS Basophils (Bld) [#/Vol] 0.0 103/mcL Normal 0.0 - 0.3 10^3/mcL AH Workflow SS Basophils/100 WBC (Bld) 0.4 % Normal 0.0 - 2.5 % AH Workflow SS Calcium [Mass/Vol] 8.4 mg/dL Low 8.7 - 10. 4 mg/dL ADM SS Chloride [Moles/Vol] 113 mmol/L High 98 - 11 0 mEq/L ADM SS CO2 [Moles/Vol] 25 mmol/L Normal 22 - 32 mEq/L ADM SS Creatinine [Mass/Vol] 0.63 mg/dL Normal 0.50 - 1.20 mg/dL ADM SS Electrolyte Balance 6.0 mEq/L Normal 4.0 - 15 .0 mEq/L ADM SS Eosinophils (Bld) [#/Vol] 0.0 103/mcL Normal 0.0 - 0.7 10^3/mcL AH Workflow SS Eosinophils/100 WBC (Bld) 0.3 % Normal 0.0 - 6.0 % AH Workflow SS Erythrocyte distribution width (RBC) [Ratio] 15.2 % Normal 11.5 - 15.5 % Workflow SS GFR/1.73 sq M.predicted among blacks MDRD (S/P/Bld) [Vol rate/Area] ml/min/1.73sqm Invalid Interpretation Code ADM SS Comment on above: Interpretive Data: GFR Population mean for , Non- Americans Ages 20-29 = 116 mL/min/1.73 sq.m. Ages 30-39 = 107 mL/min/1.73 sq.m. Ages 40-49 = 99 mL/min/1.73 sq.m. Ages 50-59 = 93 mL/min/1.73 sq.m. Ages 60-69 = 85 mL/min/1.73 sq.m. Ages 70+ = 75 mL/min/1.73 sq.m. Chronic Kidney Disease: Less than 60 mL/min/1.73 square meters End Stage Renal Disease: Less than 15 mL/min/1.73 square meters GFR/1.73 sq M.predicted among non-blacks MDRD (S/P/Bld) [Vol rate/Area] ml/min/1.73sqm Invalid Interpretation Code ADM SS Comment on above: Interpretive Data: GFR Population mean for , Non- Americans Ages 20-29 = 116 mL/min/1.73 sq.m. Ages 30-39 = 107 mL/min/1.73 sq.m. Ages 40-49 = 99 mL/min/1.73 sq.m. Ages 50-59 = 93 mL/min/1.73 sq.m. Ages 60-69 = 85 mL/min/1.73 sq.m. Ages 70+ = 75 mL/min/1.73 sq.m. Chronic Kidney Disease: Less than 60 mL/min/1.73 square meters End Stage Renal Disease: Less than 15 mL/min/1.73 square meters Glucose [Mass/Vol] 99 mg/dL Normal 70 - 110 mg/dL ADM SS Hematocrit (Bld) [Volume fraction] 28.4 % Low 34.0 - 46.0 % AH Workflow SS Hemoglobin (Bld) [Mass/Vol] 9.8 G/dL Low 12.0 - 16.0 G/dL AH Workflow SS Lymphocytes (Bld) [#/Vol] 1.6 103/mcL Normal 0.9 - 4.3 10^3/mcL Workflow SS Lymphocytes/100 WBC (Bld) 14.6 % Low 20.0 - 40.0 % AH Workflow SS Magnesium [Mass/Vol] 2.0 mg/dL Normal 1.6 - 2 .4 mg/dL ADM SS MCH (RBC) [Entitic mass] 30.8 pg Normal 27.0 - 33.0 pg AH Workflow SS MCHC 34.5 G/dL Normal 32.0 - 36.0 G/dL Workflow SS MCV (RBC) [Entitic vol] 89.4 fL Normal 80.0 - 99.0 fL Workflow SS Monocytes (Bld) [#/Vol] 1.1 103/mcL Normal 0.1 - 1.4 10^3/mcL Workflow SS Monocytes/100 WBC (Bld) 10.3 % Normal 2.0 - 13.0 % AH Workflow SS Neutrophils (Bld) [#/Vol] 8.3 103/mcL High 2.3 - 8.1 10^3/mcL AH Workflow SS Neutrophils/100 WBC (Bld) 74.4 % Normal 50.0 - 75.0 % AH Workflow SS Platelet mean volume (Bld) [Entitic vol] 8.5 fL Normal 6.6 - 10.5 fL Workflow SS Platelets (Bld) [#/Vol] 126 103/mcL Low 150 - 450 10^3/mcL AH Workflow SS Potassium [Moles/Vol] 3.7 mmol/L Normal 3.5 - 5.0 mEq/L ADM SS RBC (Bld) [#/Vol] 3.18 106/mcL Low 4.10 - 5.3 0 10^6/mcL AH Workflow SS Sodium [Moles/Vol] 144 mmol/L Normal 136 - 145 mEq/L ADM SS Urea nitrogen [Mass/Vol] 9.0 mg/dL Normal 8.0 - 22.0 mg/dL ADM SS Urea nitrogen/Creatinine [Mass ratio] 14.3 ratio Normal 10.0 - 22.0 ratio ADM SS WBC (Bld) [#/Vol] 11.1 103/mcL High 4.5 - 10.8 10^3/mcL Workflow SS MGon 10-27-2023 Magnesium [Mass/Vol] 2.0 mg/dL Normal 1.6-2.4 [facility] ([place]) Comment on above: Performed By: #### C AION, GFR, PBNP, ADIFF, CMP, A1C, MG, ANEU, TSH, PHOS, MORPH, CBC, TROPHS #### [address] [address] .Auto Diffon 10-26-2023 Basophil, Absolute 0.1 10 3/mcL Normal 0.0-0.3 [facility] ([place]) Comment on above: Performed By: #### C AION, GFR, PBNP, ADIFF, CMP, A1C, MG, ANEU, TSH, PHOS, MORPH, CBC, TROPHS #### [address] [address] Basophils/100 WBC (Bld) 0.5 % Normal 0.0-2.5 [facility] ([place]) Comment on above: Performed By: #### C AION, GFR, PBNP, ADIFF, CMP, A1C, MG, ANEU, TSH, PHOS, MORPH, CBC, TROPHS #### [address] [address] Eosinophil, Absolute 0.0 10 3/mcL Normal 0.0-0.7 On license of [facility] ([place]) Comment on above: Performed By: #### C AION, GFR, PBNP, ADIFF, CMP, A1C, MG, ANEU, TSH, PHOS, MORPH, CBC, TROPHS #### [address] [address] Eosinophils/100 WBC (Bld) 0.0 % Normal 0.0-6.0 [facility] ([place]) Comment on above: Performed By: #### C AION, GFR, PBNP, ADIFF, CMP, A1C, MG, ANEU, TSH, PHOS, MORPH, CBC, TROPHS #### [address] [address] Lymphocyte, Absolute 1.8 10 3/mcL Normal 0.9-4.3 On license of [facility] ([place]) Comment on above: Performed By: #### C AION, GFR, PBNP, ADIFF, CMP, A1C, MG, ANEU, TSH, PHOS, MORPH, CBC, TROPHS #### [address] [address] Lymphocytes/100 WBC (Bld) 11.6 % Low 20.0-40.0 [facility] ([place]) Comment on above: Performed By: #### C AION, GFR, PBNP, ADIFF, CMP, A1C, MG, ANEU, TSH, PHOS, MORPH, CBC, TROPHS #### [address] [address] Monocyte, Absolute 1.3 10 3/mcL Normal 0.1-1.4 [facility] ([place]) Comment on above: Performed By: #### C AION, GFR, PBNP, ADIFF, CMP, A1C, MG, ANEU, TSH, PHOS, MORPH, CBC, TROPHS #### [address] [address] Monocytes/100 WBC (Bld) 8.3 % Normal 2.0-13.0 A [facility] ([place]) Comment on above: Performed By: #### C AION, GFR, PBNP, ADIFF, CMP, A1C, MG, ANEU, TSH, PHOS, MORPH, CBC, TROPHS #### [address] [address] Neutrophils/100 WBC (Bld) 79.6 % High 50.0-75.0 [facility] ([place] Comment on above: Performed By: #### C AION, GFR, PBNP, ADIFF, CMP, A1C, MG, ANEU, TSH, PHOS, MORPH, CBC, TROPHS #### [address] [address] .GFRon 10-26-2023 GFR Non- >60 Normal [facility] ([place]) Comment on above: Result Comment: GFR Population mean for , Non- Americans Ages 20-29 = 116 mL/min/1.73 sq.m. Ages 30-39 = 107 mL/min/1.73 sq.m. Ages 40-49 = 99 mL/min/1.73 sq.m. Ages 50-59 = 93 mL/min/1.73 sq.m. Ages 60-69 = 85 mL/min/1.73 sq.m. Ages 70+ = 75 mL/min/1.73 sq.m. Chronic Kidney Disease: Less than 60 mL/min/1.73 square meters End Stage Renal Disease: Less than 15 mL/min/1.73 square meters Performed By: #### C AION, GFR, PBNP, ADIFF, CMP, A1C, MG, ANEU, TSH, PHOS, MORPH, CBC, TROPHS #### [address] [address] GFR >60 Normal [facility] ([place]) Comment on above: Result Comment: GFR Population mean for , Non- Americans Ages 20-29 = 116 mL/min/1.73 sq.m. Ages 30-39 = 107 mL/min/1.73 sq.m. Ages 40-49 = 99 mL/min/1.73 sq.m. Ages 50-59 = 93 mL/min/1.73 sq.m. Ages 60-69 = 85 mL/min/1.73 sq.m. Ages 70+ = 75 mL/min/1.73 sq.m. Chronic Kidney Disease: Less than 60 mL/min/1.73 square meters End Stage Renal Disease: Less than 15 mL/min/1.73 square meters Performed By: #### C AION, GFR, PBNP, ADIFF, CMP, A1C, MG, ANEU, TSH, PHOS, MORPH, CBC, TROPHS #### [address] [address] .NEUABSon 10-26-2023 Neutrophil, Absolute 12.2 10 3/mcL High 2.3-8.1 A [facility] ([place]) Comment on above: Performed By: #### C AION, GFR, PBNP, ADIFF, CMP, A1C, MG, ANEU, TSH, PHOS, MORPH, CBC, TROPHS #### [address] [address] BMPon 10-26-2023 BUN/Creatinine Ratio 25.4 ratio High 10.0-22.0 [facility] ([place]) Comment on above: Performed By: #### C AION, GFR, PBNP, ADIFF, CMP, A1C, MG, ANEU, TSH, PHOS, MORPH, CBC, TROPHS #### [place] [id number] Calcium [Mass/Vol] 7.6 mg/dL Low 8.7-10.4 [facility] ([place]) Comment on above: Performed By: #### C AION, GFR, PBNP, ADIFF, CMP, A1C, MG, ANEU, TSH, PHOS, MORPH, CBC, TROPHS #### [address] [address] Chloride [Moles/Vol] 115 mmol/L High 98-110 [facility] ([place] Comment on above: Performed By: #### C AION, GFR, PBNP, ADIFF, CMP, A1C, MG, ANEU, TSH, PHOS, MORPH, CBC, TROPHS #### [address] [address] CO2 [Moles/Vol] 21 mmol/L Low 22-32 [facility] ([place] Comment on above: Performed By: #### C AION, GFR, PBNP, ADIFF, CMP, A1C, MG, ANEU, TSH, PHOS, MORPH, CBC, TROPHS #### [address] [address] Creatinine [Mass/Vol] 0.71 mg/dL Normal 0.50-1.20 [facility] ([place]) Comment on above: Performed By: #### C AION, GFR, PBNP, ADIFF, CMP, A1C, MG, ANEU, TSH, PHOS, MORPH, CBC, TROPHS #### [address] [address] Electrolyte Balance 5.0 mEq/L Normal 4.0-15.0 [facility] ([place] Comment on above: Performed By: #### C AION, GFR, PBNP, ADIFF, CMP, A1C, MG, ANEU, TSH, PHOS, MORPH, CBC, TROPHS #### [place] [address] Glucose [Mass/Vol] 169 mg/dL High 70-110 [facility] ([place] Comment on above: Performed By: #### C AION, GFR, PBNP, ADIFF, CMP, A1C, MG, ANEU, TSH, PHOS, MORPH, CBC, TROPHS #### [address] [address] Potassium [Moles/Vol] 3.8 mmol/L Normal 3.5-5.0 [facility] ([place] Comment on above: Performed By: #### C AION, GFR, PBNP, ADIFF, CMP, A1C, MG, ANEU, TSH, PHOS, MORPH, CBC, TROPHS #### [place] [id number] Sodium [Moles/Vol] 141 mmol/L Normal 136-145 [facility] ([place] Comment on above: Performed By: #### C AION, GFR, PBNP, ADIFF, CMP, A1C, MG, ANEU, TSH, PHOS, MORPH, CBC, TROPHS #### [address] [address] Urea nitrogen [Mass/Vol] 18.0 mg/dL Normal 8.0-22.0 [facility] ([place] Comment on above: Performed By: #### C AION, GFR, PBNP, ADIFF, CMP, A1C, MG, ANEU, TSH, PHOS, MORPH, CBC, TROPHS #### [address] [address] CBCon 10-26-2023 Erythrocyte distribution width (RBC) [Ratio] 14.7 % Normal 11.5-15.5 [facility] ([place] Comment on above: Performed By: #### C AION, GFR, PBNP, ADIFF, CMP, A1C, MG, ANEU, TSH, PHOS, MORPH, CBC, TROPHS #### [place] [address] Hematocrit (Bld) [Volume fraction] 30.9 % Low 34.0-46.0 [facility] ([place] Comment on above: Performed By: #### C AION, GFR, PBNP, ADIFF, CMP, A1C, MG, ANEU, TSH, PHOS, MORPH, CBC, TROPHS #### [place] [id number] Hgb 10.4 G/dL Low 12.0-16.0 [facility] ([place] Comment on above: Performed By: #### C AION, GFR, PBNP, ADIFF, CMP, A1C, MG, ANEU, TSH, PHOS, MORPH, CBC, TROPHS #### [place] [id number] MCH (RBC) [Entitic mass] 30.1 pg Normal 27.0-33.0 [facility] ([place] Comment on above: Performed By: #### C AION, GFR, PBNP, ADIFF, CMP, A1C, MG, ANEU, TSH, PHOS, MORPH, CBC, TROPHS #### [address] [address] MCHC 33.6 G/dL Normal 32.0-36.0 [facility] ([place] Comment on above: Performed By: #### C AION, GFR, PBNP, ADIFF, CMP, A1C, MG, ANEU, TSH, PHOS, MORPH, CBC, TROPHS #### [place] [id number] MCV (RBC) [Entitic vol] 89.7 fL Normal 80.0-99.0 A [facility] ([place] Comment on above: Performed By: #### C AION, GFR, PBNP, ADIFF, CMP, A1C, MG, ANEU, TSH, PHOS, MORPH, CBC, TROPHS #### [place] [address] Platelet 138 10 3/mcL Low 150-450 [facility] ([place] Comment on above: Performed By: #### C AION, GFR, PBNP, ADIFF, CMP, A1C, MG, ANEU, TSH, PHOS, MORPH, CBC, TROPHS #### [place] [address] Platelet mean volume (Bld) [Entitic vol] 7.7 fL Normal 6.6-10.5 [facility] ([place]) Comment on above: Performed By: #### C AION, GFR, PBNP, ADIFF, CMP, A1C, MG, ANEU, TSH, PHOS, MORPH, CBC, TROPHS #### [place] [address] RBC 3.44 10 6/mcL Low 4.10-5.30 [facility] ([place] Comment on above: Performed By: #### C AION, GFR, PBNP, ADIFF, CMP, A1C, MG, ANEU, TSH, PHOS, MORPH, CBC, TROPHS #### [place] [id number] WBC 15.4 10 3/mcL High 4.5-10.8 [facility] ([place] Comment on above: Performed By: #### C AION, GFR, PBNP, ADIFF, CMP, A1C, MG, ANEU, TSH, PHOS, MORPH, CBC, TROPHS #### [place] [id number] HHon 10-26-2023 Hematocrit (Bld) [Volume fraction] 30.7 % Low 34.0-46.0 [facility] ([place] Comment on above: Performed By: #### C AION, GFR, PBNP, ADIFF, CMP, A1C, MG, ANEU, TSH, PHOS, MORPH, CBC, TROPHS #### [address] [address] Hgb 10.6 G/dL Low 12.0-16.0 [facility] [place] Comment on above: Performed By: #### C AION, GFR, PBNP, ADIFF, CMP, A1C, MG, ANEU, TSH, PHOS, MORPH, CBC, TROPHS #### [place] [id number] Hematocrit (Bld) [Volume fraction] 28.5 % Low 34.0-46.0 [facility] ([place] Comment on above: Performed By: #### C AION, GFR, PBNP, ADIFF, CMP, A1C, MG, ANEU, TSH, PHOS, MORPH, CBC, TROPHS #### [place] [address] Hgb 9.7 G/dL Low 12.0-16.0 [facility] ([place] Comment on above: Performed By: #### C AION, GFR, PBNP, ADIFF, CMP, A1C, MG, ANEU, TSH, PHOS, MORPH, CBC, TROPHS #### [address] [address] LABORATORYOrdered By: SYSTEM SYSTEM on 10-26-2023 Hematocrit (Bld) [Volume fraction] 30.7 % Low 34.0 - 46.0 % AH Workflow SS Hemoglobin (Bld) [Mass/Vol] 10.6 G/dL Low 12.0 - 16.0 G/dL AH Workflow SS Basophils (Bld) [#/Vol] 0.1 103/mcL Normal 0.0 - 0.3 10^3/mcL AH Workflow SS Basophils/100 WBC (Bld) 0.5 % Normal 0.0 - 2.5 % AH Workflow SS Calcium [Mass/Vol] 7.6 mg/dL Low 8.7 - 10. 4 mg/dL AH ADM SS Chloride [Moles/Vol] 115 mmol/L High 98 - 11 0 mEq/L ADM SS CO2 [Moles/Vol] 21 mmol/L Low 22 - 32 mEq/L ADM SS Creatinine [Mass/Vol] 0.71 mg/dL Normal 0.50 - 1.20 mg/dL ADM SS Electrolyte Balance 5.0 mEq/L Normal 4.0 - 15 .0 mEq/L ADM SS Eosinophils (Bld) [#/Vol] 0.0 103/mcL Normal 0.0 - 0.7 10^3/mcL Workflow SS Eosinophils/100 WBC (Bld) 0.0 % Normal 0.0 - 6.0 % Workflow SS Erythrocyte distribution width (RBC) [Ratio] 14.7 % Normal 11.5 - 15.5 % Workflow SS GFR/1.73 sq M.predicted among blacks MDRD (S/P/Bld) [Vol rate/Area] ml/min/1.73sqm Invalid Interpretation Code AH ADM SS Comment on above: Interpretive Data: GFR Population mean for , Non- Americans Ages 20-29 = 116 mL/min/1.73 sq.m. Ages 30-39 = 107 mL/min/1.73 sq.m. Ages 40-49 = 99 mL/min/1.73 sq.m. Ages 50-59 = 93 mL/min/1.73 sq.m. Ages 60-69 = 85 mL/min/1.73 sq.m. Ages 70+ = 75 mL/min/1.73 sq.m. Chronic Kidney Disease: Less than 60 mL/min/1.73 square meters End Stage Renal Disease: Less than 15 mL/min/1.73 square meters GFR/1.73 sq M.predicted among non-blacks MDRD (S/P/Bld) [Vol rate/Area] ml/min/1.73sqm Invalid Interpretation Code ADM SS Comment on above: Interpretive Data: GFR Population mean for , Non- Americans Ages 20-29 = 116 mL/min/1.73 sq.m. Ages 30-39 = 107 mL/min/1.73 sq.m. Ages 40-49 = 99 mL/min/1.73 sq.m. Ages 50-59 = 93 mL/min/1.73 sq.m. Ages 60-69 = 85 mL/min/1.73 sq.m. Ages 70+ = 75 mL/min/1.73 sq.m. Chronic Kidney Disease: Less than 60 mL/min/1.73 square meters End Stage Renal Disease: Less than 15 mL/min/1.73 square meters Glucose [Mass/Vol] 169 mg/dL High 70 - 110 mg/dL AH ADM SS Lymphocytes (Bld) [#/Vol] 1.8 103/mcL Normal 0.9 - 4.3 10^3/mcL AH Workflow SS Lymphocytes/100 WBC (Bld) 11.6 % Low 20.0 - 40.0 % AH Workflow SS Magnesium [Mass/Vol] 1.8 mg/dL Normal 1.6 - 2 .4 mg/dL AH ADM SS MCH (RBC) [Entitic mass] 30.1 pg Normal 27.0 - 33.0 pg AH Workflow SS MCHC 33.6 G/dL Normal 32.0 - 36.0 G/dL AH Workflow SS MCV (RBC) [Entitic vol] 89.7 fL Normal 80.0 - 99.0 fL AH Workflow SS Monocytes (Bld) [#/Vol] 1.3 103/mcL Normal 0.1 - 1.4 10^3/mcL AH Workflow SS Monocytes/100 WBC (Bld) 8.3 % Normal 2.0 - 13.0 % AH Workflow SS Neutrophils (Bld) [#/Vol] 12.2 103/mcL High 2.3 - 8.1 10^3/mcL AH Workflow SS Neutrophils/100 WBC (Bld) 79.6 % High 50.0 - 75.0 % AH Workflow SS Platelet mean volume (Bld) [Entitic vol] 7.7 fL Normal 6.6 - 10.5 fL AH Workflow SS Platelets (Bld) [#/Vol] 138 103/mcL Low 150 - 450 10^3/mcL AH Workflow SS Potassium [Moles/Vol] 3.8 mmol/L Normal 3.5 - 5.0 mEq/L AH ADM SS RBC (Bld) [#/Vol] 3.44 106/mcL Low 4.10 - 5.3 0 10^6/mcL AH Workflow SS Sodium [Moles/Vol] 141 mmol/L Normal 136 - 145 mEq/L AH ADM SS Urea nitrogen [Mass/Vol] 18.0 mg/dL Normal 8.0 - 22.0 mg/dL ADM SS Urea nitrogen/Creatinine [Mass ratio] 25.4 ratio High 10.0 - 22.0 ratio AH ADM SS WBC (Bld) [#/Vol] 15.4 103/mcL High 4.5 - 10.8 10^3/mcL AH Workflow SS LABORATORYOrdered By: Jennifer Herr on 10-26-2023 Lactate [Moles/Vol] 0.9 mmol/L Normal 0.2 - 2. 0 mmol/L AH Auto Chem SS LABORATORYOrdered By: Jenny Mims on 10-26-2023 Appearance (U) Clear (10/26/23 7:01 AM) Normal Clear AH Auto Urine SS Bilirubin Ql (U) Negative (10/26/23 7:01 AM) Normal Neg-Trace AH Auto Urine SS Color (U) Yellow (10/26/23 7:01 AM) Normal AH Auto Urine SS Glucose Test strip (U) [Mass/Vol] Negative Normal Negative AH Auto Urine SS Hemoglobin Auto test strip (U) [Mass/Vol] Negative (10/26/23 7:01 AM) Normal Neg-Trace AH Auto Urine SS Ketones Ql (U) Negative Normal Neg-Trace AH Auto Ur ine SS UA Leuk Est Negative (10/26/23 7:01 AM) Normal Negative AH Auto Urine SS UA Nitrite Negative (10/26/23 7:01 AM) Normal Negative AH Auto Urine SS UA pH 5.5 (10/26/23 7:01 AM) Normal 5.0 - 8.0 AH Auto Urine SS UA Protein Trace mg/dL Normal Negative AH Auto Urine SS UA Spec Grav >=1.030 *ABN* (10/26/23 7:01 AM) Invalid Interpretation Code 1.006-1.029 AH Auto Urine SS UA Specimen Type Clean Catch (10/26/23 7:01 AM) Normal AH Auto Urine SS UA Urobilinogen 0.2 E.U./dL Normal 0.2-1.0 AH Auto Urine SS LABORATORYOrdered By: Tanisha Reveles on 10-26-2023 Cholesterol [Mass/Vol] 92 mg/dL Normal 50 - 199 mg/dL AH ADM SS Comment on above: Interpretive Data: C holesterol Reference Interval: Less than 200 Desirable 200-239 Borderline high risk 240 and above High risk Cholesterol in HDL [Mass/Vol] 23 mg/dL Low 40 - 59 mg/dL AH ADM SS Cholesterol in LDL [Mass/Vol] 44 mg/dL Normal 0 - 129 mg/dL ADM SS Triglyceride [Mass/Vol] 126 mg/dL Normal 3 - 149 mg/dL ADM SS LABORATORYOrdered By: Geovanni Grimes on 10-26-2023 Lactate [Moles/Vol] 3.2 mmol/L High 0.2 - 2. 0 mmol/L Auto Chem SS LACon 10-26-2023 Lactic Acid Lvl 0.9 mmol/L Normal 0.2-2.0 [facility] ([place]) Comment on above: Performed By: #### C AION, GFR, PBNP, ADIFF, CMP, A1C, MG, ANEU, TSH, PHOS, MORPH, CBC, TROPHS #### [address] [address] Lactic Acid Lvl 3.2 mmol/L High 0.2-2.0 [facility] ([place] Comment on above: Performed By: #### C AION, GFR, PBNP, ADIFF, CMP, A1C, MG, ANEU, TSH, PHOS, MORPH, CBC, TROPHS #### [address] [address] LIPIDon 10-26-2023 Cholesterol [Mass/Vol] 92 mg/dL Normal 50-199 On license of [facility] ([place]) Comment on above: Result Comment: Chol esterol Reference Interval: Less than 200 Desirable 200-239 Borderline high risk 240 and above High risk Performed By: #### C AION, GFR, PBNP, ADIFF, CMP, A1C, MG, ANEU, TSH, PHOS, MORPH, CBC, TROPHS #### [address] [address] Cholesterol in HDL [Mass/Vol] 23 mg/dL Low 40-59 [facility] ([place] Comment on above: Performed By: #### C AION, GFR, PBNP, ADIFF, CMP, A1C, MG, ANEU, TSH, PHOS, MORPH, CBC, TROPHS #### [address] [address] Cholesterol in LDL [Mass/Vol] 44 mg/dL Normal 0-129 [facility] ([place]) Comment on above: Performed By: #### C AION, GFR, PBNP, ADIFF, CMP, A1C, MG, ANEU, TSH, PHOS, MORPH, CBC, TROPHS #### [place] [address] Triglyceride [Mass/Vol] 126 mg/dL Normal 3-149 A [facility] ([place]) Comment on above: Performed By: #### C AION, GFR, PBNP, ADIFF, CMP, A1C, MG, ANEU, TSH, PHOS, MORPH, CBC, TROPHS #### [place] [address] MGon 10-26-2023 Magnesium [Mass/Vol] 1.8 mg/dL Normal 1.6-2.4 [facility] ([place] Comment on above: Performed By: #### C AION, GFR, PBNP, ADIFF, CMP, A1C, MG, ANEU, TSH, PHOS, MORPH, CBC, TROPHS #### [place] [address] TROPHSon 10-26-2023 Troponin I High Sensitivity >079[address].00 High 0.00-34.00 [facility] ([place] Comment on above: Performed By: #### C AION, GFR, PBNP, ADIFF, CMP, A1C, MG, ANEU, TSH, PHOS, MORPH, CBC, TROPHS #### [place] [address] UAon 10-26-2023 Color (U) Yellow Normal [facility] ([place] Comment on above: Performed By: #### C AION, GFR, PBNP, ADIFF, CMP, A1C, MG, ANEU, TSH, PHOS, MORPH, CBC, TROPHS #### [place] [id number] Glucose (U) [Mass/Vol] Negative Normal Negative On license of [facility] ([place]) Comment on above: Performed By: #### C AION, GFR, PBNP, ADIFF, CMP, A1C, MG, ANEU, TSH, PHOS, MORPH, CBC, TROPHS #### [place] [address] Ketones Ql (U) Negative Normal Neg-Trace [facility] ([place] Comment on above: Performed By: #### C AION, GFR, PBNP, ADIFF, CMP, A1C, MG, ANEU, TSH, PHOS, MORPH, CBC, TROPHS #### [place] [address] UA Appear Clear Normal Clear [facility] ([place] Comment on above: Performed By: #### C AION, GFR, PBNP, ADIFF, CMP, A1C, MG, ANEU, TSH, PHOS, MORPH, CBC, TROPHS #### [place] [address] UA Blood Negative Normal Neg-Trace [facility] ([place] Comment on above: Performed By: #### C AION, GFR, PBNP, ADIFF, CMP, A1C, MG, ANEU, TSH, PHOS, MORPH, CBC, TROPHS #### [place] [address] UA Leuk Est Negative Normal Negative [facility] ([place] Comment on above: Performed By: #### C AION, GFR, PBNP, ADIFF, CMP, A1C, MG, ANEU, TSH, PHOS, MORPH, CBC, TROPHS #### [place] [address] UA Nitrite Negative Normal Negative [facility] ([place] Comment on above: Performed By: #### C AION, GFR, PBNP, ADIFF, CMP, A1C, MG, ANEU, TSH, PHOS, MORPH, CBC, TROPHS #### [place] [address] UA pH 5.5 Normal 5.0 - 8.0 [facility] ([place]) Comment on above: Performed By: #### C AION, GFR, PBNP, ADIFF, CMP, A1C, MG, ANEU, TSH, PHOS, MORPH, CBC, TROPHS #### [place] [address] UA Protein Trace Normal Negative [facility] ([place]) Comment on above: Performed By: #### C AION, GFR, PBNP, ADIFF, CMP, A1C, MG, ANEU, TSH, PHOS, MORPH, CBC, TROPHS #### [place] [address] UA Spec Grav >=1.030 Abnormal 1.006-1.029 [facility] ([place]) Comment on above: Performed By: #### C AION, GFR, PBNP, ADIFF, CMP, A1C, MG, ANEU, TSH, PHOS, MORPH, CBC, TROPHS #### [place] [address] UA Specimen Type Clean Catch Normal [facility] ([place]) Comment on above: Performed By: #### C AION, GFR, PBNP, ADIFF, CMP, A1C, MG, ANEU, TSH, PHOS, MORPH, CBC, TROPHS #### [place] [address] UA Urobilinogen 0.2 E.U./dL Normal 0.2-1.0 [facility] ([place]) Comment on above: Performed By: #### C AION, GFR, PBNP, ADIFF, CMP, A1C, MG, ANEU, TSH, PHOS, MORPH, CBC, TROPHS #### [place] [address] Urobilinogen (U) [Mass/Vol] Negative Normal Neg-Trace [facility] ([place]) Comment on above: Performed By: #### C AION, GFR, PBNP, ADIFF, CMP, A1C, MG, ANEU, TSH, PHOS, MORPH, CBC, TROPHS #### [place] [address] .Auto Diffon 10-25-2023 Basophil, Absolute 0.1 10 3/mcL Normal 0.0-0.3 [facility] ([place]) Comment on above: Performed By: #### C AION, GFR, PBNP, ADIFF, CMP, A1C, MG, ANEU, TSH, PHOS, MORPH, CBC, TROPHS #### [place] [address] Basophils/100 WBC (Bld) 0.3 % Normal 0.0-2.5 A [facility] ([place]) Comment on above: Performed By: #### C AION, GFR, PBNP, ADIFF, CMP, A1C, MG, ANEU, TSH, PHOS, MORPH, CBC, TROPHS #### [address] [address] Eosinophil, Absolute 0.0 10 3/mcL Normal 0.0-0.7 On license of [facility] ([place]) Comment on above: Performed By: #### C AION, GFR, PBNP, ADIFF, CMP, A1C, MG, ANEU, TSH, PHOS, MORPH, CBC, TROPHS #### [address] [address] Eosinophils/100 WBC (Bld) 0.0 % Normal 0.0-6.0 [facility] ([place]) Comment on above: Performed By: #### C AION, GFR, PBNP, ADIFF, CMP, A1C, MG, ANEU, TSH, PHOS, MORPH, CBC, TROPHS #### [address] [address] Lymphocyte, Absolute 2.4 10 3/mcL Normal 0.9-4.3 On license of [facility] ([place]) Comment on above: Performed By: #### C AION, GFR, PBNP, ADIFF, CMP, A1C, MG, ANEU, TSH, PHOS, MORPH, CBC, TROPHS #### [address] [address] Lymphocytes/100 WBC (Bld) 7.8 % Low 20.0-40.0 [facility] ([place]) Comment on above: Performed By: #### C AION, GFR, PBNP, ADIFF, CMP, A1C, MG, ANEU, TSH, PHOS, MORPH, CBC, TROPHS #### [address] [address] Monocyte, Absolute 2.4 10 3/mcL High 0.1-1.4 [facility] ([place]) Comment on above: Performed By: #### C AION, GFR, PBNP, ADIFF, CMP, A1C, MG, ANEU, TSH, PHOS, MORPH, CBC, TROPHS #### [address] [address] Monocytes/100 WBC (Bld) 7.6 % Normal 2.0-13.0 A [facility] ([place]) Comment on above: Performed By: #### C AION, GFR, PBNP, ADIFF, CMP, A1C, MG, ANEU, TSH, PHOS, MORPH, CBC, TROPHS #### [address] [address] Neutrophils/100 WBC (Bld) 84.3 % High 50.0-75.0 [facility] ([place]) Comment on above: Performed By: #### C AION, GFR, PBNP, ADIFF, CMP, A1C, MG, ANEU, TSH, PHOS, MORPH, CBC, TROPHS #### [address] [address] Basophil, Absolute 0.4 10 3/mcL High 0.0-0.3 [facility] ([place]) Comment on above: Performed By: #### C AION, GFR, PBNP, ADIFF, CMP, A1C, MG, ANEU, TSH, PHOS, MORPH, CBC, TROPHS #### [address] [address] Basophils/100 WBC (Bld) 1.4 % Normal 0.0-2.5 A [facility] ([place]) Comment on above: Performed By: #### C AION, GFR, PBNP, ADIFF, CMP, A1C, MG, ANEU, TSH, PHOS, MORPH, CBC, TROPHS #### [address] [address] Eosinophil, Absolute 0.0 10 3/mcL Normal 0.0-0.7 On license of [facility] ([place]) Comment on above: Performed By: #### C AION, GFR, PBNP, ADIFF, CMP, A1C, MG, ANEU, TSH, PHOS, MORPH, CBC, TROPHS #### [address] [address] Eosinophils/100 WBC (Bld) 0.1 % Normal 0.0-6.0 [facility] ([place]) Comment on above: Performed By: #### C AION, GFR, PBNP, ADIFF, CMP, A1C, MG, ANEU, TSH, PHOS, MORPH, CBC, TROPHS #### [address] [address] Lymphocyte, Absolute 2.6 10 3/mcL Normal 0.9-4.3 On license of [facility] ([place]) Comment on above: Performed By: #### C AION, GFR, PBNP, ADIFF, CMP, A1C, MG, ANEU, TSH, PHOS, MORPH, CBC, TROPHS #### [address] [address] Lymphocytes/100 WBC (Bld) 8.4 % Low 20.0-40.0 [facility] ([place]) Comment on above: Performed By: #### C AION, GFR, PBNP, ADIFF, CMP, A1C, MG, ANEU, TSH, PHOS, MORPH, CBC, TROPHS #### [address] [address] Monocyte, Absolute 3.1 10 3/mcL High 0.1-1.4 [facility] ([place]) Comment on above: Performed By: #### C AION, GFR, PBNP, ADIFF, CMP, A1C, MG, ANEU, TSH, PHOS, MORPH, CBC, TROPHS #### [address] [address] Monocytes/100 WBC (Bld) 10.0 % Normal 2.0-13.0 [facility] ([place]) Comment on above: Performed By: #### C AION, GFR, PBNP, ADIFF, CMP, A1C, MG, ANEU, TSH, PHOS, MORPH, CBC, TROPHS #### [address] [address] Neutrophils/100 WBC (Bld) 80.1 % High 50.0-75.0 [facility] ([place]) Comment on above: Performed By: #### C AION, GFR, PBNP, ADIFF, CMP, A1C, MG, ANEU, TSH, PHOS, MORPH, CBC, TROPHS #### [address] [address] Basophil, Absolute 0.1 10 3/mcL Normal 0.0-0.3 [facility] ([place]) Comment on above: Performed By: #### C AION, GFR, PBNP, ADIFF, CMP, A1C, MG, ANEU, TSH, PHOS, MORPH, CBC, TROPHS #### [address] [address] Basophils/100 WBC (Bld) 0.4 % Normal 0.0-2.5 [facility] ([place]) Comment on above: Performed By: #### C AION, GFR, PBNP, ADIFF, CMP, A1C, MG, ANEU, TSH, PHOS, MORPH, CBC, TROPHS #### [address] [address] Eosinophil, Absolute 0.0 10 3/mcL Normal 0.0-0.7 On license of [facility] ([place]) Comment on above: Performed By: #### C AION, GFR, PBNP, ADIFF, CMP, A1C, MG, ANEU, TSH, PHOS, MORPH, CBC, TROPHS #### [address] [address] Eosinophils/100 WBC (Bld) 0.1 % Normal 0.0-6.0 [facility] ([place]) Comment on above: Performed By: #### C AION, GFR, PBNP, ADIFF, CMP, A1C, MG, ANEU, TSH, PHOS, MORPH, CBC, TROPHS #### [address] [address] Lymphocyte, Absolute 2.0 10 3/mcL Normal 0.9-4.3 On license of [facility] ([place]) Comment on above: Performed By: #### C AION, GFR, PBNP, ADIFF, CMP, A1C, MG, ANEU, TSH, PHOS, MORPH, CBC, TROPHS #### [address] [address] Lymphocytes/100 WBC (Bld) 7.0 % Low 20.0-40.0 [facility] ([place]) Comment on above: Performed By: #### C AION, GFR, PBNP, ADIFF, CMP, A1C, MG, ANEU, TSH, PHOS, MORPH, CBC, TROPHS #### [address] [address] Monocyte, Absolute 2.5 10 3/mcL High 0.1-1.4 [facility] ([place] Comment on above: Performed By: #### C AION, GFR, PBNP, ADIFF, CMP, A1C, MG, ANEU, TSH, PHOS, MORPH, CBC, TROPHS #### [address] [address] Monocytes/100 WBC (Bld) 8.9 % Normal 2.0-13.0 [facility] ([place]) Comment on above: Performed By: #### C AION, GFR, PBNP, ADIFF, CMP, A1C, MG, ANEU, TSH, PHOS, MORPH, CBC, TROPHS #### [address] [address] Neutrophils/100 WBC (Bld) 83.6 % High 50.0-75.0 [facility] [place] Comment on above: Performed By: #### C AION, GFR, PBNP, ADIFF, CMP, A1C, MG, ANEU, TSH, PHOS, MORPH, CBC, TROPHS #### [address] [address] .GFRon 10-25-2023 GFR >60 Normal [facility] ([place]) Comment on above: Result Comment: GFR Population mean for , Non- Americans Ages 20-29 = 116 mL/min/1.73 sq.m. Ages 30-39 = 107 mL/min/1.73 sq.m. Ages 40-49 = 99 mL/min/1.73 sq.m. Ages 50-59 = 93 mL/min/1.73 sq.m. Ages 60-69 = 85 mL/min/1.73 sq.m. Ages 70+ = 75 mL/min/1.73 sq.m. Chronic Kidney Disease: Less than 60 mL/min/1.73 square meters End Stage Renal Disease: Less than 15 mL/min/1.73 square meters Performed By: #### C AION, GFR, PBNP, ADIFF, CMP, A1C, MG, ANEU, TSH, PHOS, MORPH, CBC, TROPHS #### [address] [address] GFR Non- >60 Normal [facility] ([place] Comment on above: Result Comment: GFR Population mean for , Non- Americans Ages 20-29 = 116 mL/min/1.73 sq.m. Ages 30-39 = 107 mL/min/1.73 sq.m. Ages 40-49 = 99 mL/min/1.73 sq.m. Ages 50-59 = 93 mL/min/1.73 sq.m. Ages 60-69 = 85 mL/min/1.73 sq.m. Ages 70+ = 75 mL/min/1.73 sq.m. Chronic Kidney Disease: Less than 60 mL/min/1.73 square meters End Stage Renal Disease: Less than 15 mL/min/1.73 square meters Performed By: #### C GAV[place], GFR, PBNP, ADIFF, CMP, A1C, MG, ANEU, TSH, PHOS, MORPH, CBC, TROPHS #### [address] [address] GFR Non- >60 Normal [facility] ([place]) Comment on above: Result Comment: GFR Population mean for , Non- Americans Ages 20-29 = 116 mL/min/1.73 sq.m. Ages 30-39 = 107 mL/min/1.73 sq.m. Ages 40-49 = 99 mL/min/1.73 sq.m. Ages 50-59 = 93 mL/min/1.73 sq.m. Ages 60-69 = 85 mL/min/1.73 sq.m. Ages 70+ = 75 mL/min/1.73 sq.m. Chronic Kidney Disease: Less than 60 mL/min/1.73 square meters End Stage Renal Disease: Less than 15 mL/min/1.73 square meters Performed By: #### C AINABILA, GFR, PBNP, ADIFF, CMP, A1C, MG, ANEU, TSH, PHOS, MORPH, CBC, TROPHS #### [address] [address] GFR >60 Normal [facility] ([place]) Comment on above: Result Comment: GFR Population mean for , Non- Americans Ages 20-29 = 116 mL/min/1.73 sq.m. Ages 30-39 = 107 mL/min/1.73 sq.m. Ages 40-49 = 99 mL/min/1.73 sq.m. Ages 50-59 = 93 mL/min/1.73 sq.m. Ages 60-69 = 85 mL/min/1.73 sq.m. Ages 70+ = 75 mL/min/1.73 sq.m. Chronic Kidney Disease: Less than 60 mL/min/1.73 square meters End Stage Renal Disease: Less than 15 mL/min/1.73 square meters Performed By: #### C AION, GFR, PBNP, ADIFF, CMP, A1C, MG, ANEU, TSH, PHOS, MORPH, CBC, TROPHS #### [place] [address] .Morphon 10-25-2023 Platelet Estimate Normal Normal [facility] ([place]) Comment on above: Performed By: #### C AION, GFR, PBNP, ADIFF, CMP, A1C, MG, ANEU, TSH, PHOS, MORPH, CBC, TROPHS #### [place] [address] RBC morphology finding Nom (Bld) See Below Normal [facility] ([place]) Comment on above: Result Comment: RBC Morphology appears Normal Performed By: #### C AION, GFR, PBNP, ADIFF, CMP, A1C, MG, ANEU, TSH, PHOS, MORPH, CBC, TROPHS #### [place] [address] Platelet Estimate Normal Normal [facility] ([place]) Comment on above: Performed By: #### C AION, GFR, PBNP, ADIFF, CMP, A1C, MG, ANEU, TSH, PHOS, MORPH, CBC, TROPHS #### [place] [id number] Polychrom 1+ Normal [facility] ([place]) Comment on above: Performed By: #### C AION, GFR, PBNP, ADIFF, CMP, A1C, MG, ANEU, TSH, PHOS, MORPH, CBC, TROPHS #### [place] [address] Platelet Estimate Normal Normal [facility] ([place] Comment on above: Performed By: #### C AION, GFR, PBNP, ADIFF, CMP, A1C, MG, ANEU, TSH, PHOS, MORPH, CBC, TROPHS #### [place] [address] RBC morphology finding Nom (Bld) See Below Normal [facility] ([place] Comment on above: Result Comment: RBC Morphology appears Normal Performed By: #### C AION, GFR, PBNP, ADIFF, CMP, A1C, MG, ANEU, TSH, PHOS, MORPH, CBC, TROPHS #### [place] [address] .NEUABSon 10-25-2023 Neutrophil, Absolute 26.5 10 3/mcL High 2.3-8.1 [facility] ([place]) Comment on above: Performed By: #### C AION, GFR, PBNP, ADIFF, CMP, A1C, MG, ANEU, TSH, PHOS, MORPH, CBC, TROPHS #### [place] [address] Neutrophil, Absolute 24.8 10 3/mcL High 2.3-8.1 [facility] ([place] Comment on above: Performed By: #### C AION, GFR, PBNP, ADIFF, CMP, A1C, MG, ANEU, TSH, PHOS, MORPH, CBC, TROPHS #### [place] [address] Neutrophil, Absolute 23.8 10 3/mcL High 2.3-8.1 [facility] ([place] Comment on above: Performed By: #### C AION, GFR, PBNP, ADIFF, CMP, A1C, MG, ANEU, TSH, PHOS, MORPH, CBC, TROPHS #### [place] [address] A1Con 10-25-2023 HbA1c (Bld) [Mass fraction] 5.6 % Normal 4.0-6.0 [facility] ([place]) Comment on above: Performed By: #### C AION, GFR, PBNP, ADIFF, CMP, A1C, MG, ANEU, TSH, PHOS, MORPH, CBC, TROPHS #### [address] [address] ABO/Rh (Gel)on 10-25-2023 ABO/Rh Interp Positive Invalid Interpretation Code [facility] ([place] Comment on above: Performed By: #### C AION, GFR, PBNP, ADIFF, CMP, A1C, MG, ANEU, TSH, PHOS, MORPH, CBC, TROPHS #### [address] [address] ABS (Gel)on 10-25-2023 ABSC Interp (Gel) Negative Normal [facility] ([place] Comment on above: Performed By: #### C AION, GFR, PBNP, ADIFF, CMP, A1C, MG, ANEU, TSH, PHOS, MORPH, CBC, TROPHS #### [place] [id number] CAIONon 10-25-2023 Calcium Ionized 1.09 mmol/L Low 1.12-1.32 [facility] ([place]) Comment on above: Performed By: #### C AION, GFR, PBNP, ADIFF, CMP, A1C, MG, ANEU, TSH, PHOS, MORPH, CBC, TROPHS #### [place] [id number] CBCon 10-25-2023 Erythrocyte distribution width (RBC) [Ratio] 14.1 % Normal 11.5-15.5 [facility] ([place] Comment on above: Performed By: #### C AION, GFR, PBNP, ADIFF, CMP, A1C, MG, ANEU, TSH, PHOS, MORPH, CBC, TROPHS #### [place] [id number] Hematocrit (Bld) [Volume fraction] 20.0 % Low 34.0-46.0 [facility] ([place] Comment on above: Performed By: #### C AION, GFR, PBNP, ADIFF, CMP, A1C, MG, ANEU, TSH, PHOS, MORPH, CBC, TROPHS #### [place] [id number] Hgb 6.5 G/dL Critically abnormal 12.0-16.0 [facility] ([place] Comment on above: Performed By: #### C AION, GFR, PBNP, ADIFF, CMP, A1C, MG, ANEU, TSH, PHOS, MORPH, CBC, TROPHS #### [address] [address] MCH (RBC) [Entitic mass] 30.7 pg Normal 27.0-33.0 [facility] ([place] Comment on above: Performed By: #### C AION, GFR, PBNP, ADIFF, CMP, A1C, MG, ANEU, TSH, PHOS, MORPH, CBC, TROPHS #### [place] [id number] MCHC 32.8 G/dL Normal 32.0-36.0 [facility] ([place] Comment on above: Performed By: #### C AION, GFR, PBNP, ADIFF, CMP, A1C, MG, ANEU, TSH, PHOS, MORPH, CBC, TROPHS #### [place] [id number] MCV (RBC) [Entitic vol] 93.7 fL Normal 80.0-99.0 [facility] ([place] Comment on above: Performed By: #### C AION, GFR, PBNP, ADIFF, CMP, A1C, MG, ANEU, TSH, PHOS, MORPH, CBC, TROPHS #### [place] [address] Platelet 371 10 3/mcL Normal 150-450 [facility] ([place] Comment on above: Performed By: #### C AION, GFR, PBNP, ADIFF, CMP, A1C, MG, ANEU, TSH, PHOS, MORPH, CBC, TROPHS #### [place] [address] Platelet mean volume (Bld) [Entitic vol] 7.6 fL Normal 6.6-10.5 [facility] ([place] Comment on above: Performed By: #### C AION, GFR, PBNP, ADIFF, CMP, A1C, MG, ANEU, TSH, PHOS, MORPH, CBC, TROPHS #### [place] [address] RBC 2.13 10 6/mcL Low 4.10-5.30 [facility] ([place] Comment on above: Performed By: #### C AION, GFR, PBNP, ADIFF, CMP, A1C, MG, ANEU, TSH, PHOS, MORPH, CBC, TROPHS #### [address] [address] WBC 31.4 10 3/mcL High 4.5-10.8 [facility] ([place] Comment on above: Performed By: #### C AION, GFR, PBNP, ADIFF, CMP, A1C, MG, ANEU, TSH, PHOS, MORPH, CBC, TROPHS #### [place] [address] Erythrocyte distribution width (RBC) [Ratio] 13.8 % Normal 11.5-15.5 [facility] ([place] Comment on above: Performed By: #### C AION, GFR, PBNP, ADIFF, CMP, A1C, MG, ANEU, TSH, PHOS, MORPH, CBC, TROPHS #### [place] [address] Hematocrit (Bld) [Volume fraction] 22.4 % Low 34.0-46.0 [facility] ([place] Comment on above: Performed By: #### C AION, GFR, PBNP, ADIFF, CMP, A1C, MG, ANEU, TSH, PHOS, MORPH, CBC, TROPHS #### [place] [id number] Hgb 7.4 G/dL Low 12.0-16.0 [facility] ([place] Comment on above: Performed By: #### C AION, GFR, PBNP, ADIFF, CMP, A1C, MG, ANEU, TSH, PHOS, MORPH, CBC, TROPHS #### [address] [address] MCH (RBC) [Entitic mass] 31.0 pg Normal 27.0-33.0 [facility] ([place] Comment on above: Performed By: #### C AION, GFR, PBNP, ADIFF, CMP, A1C, MG, ANEU, TSH, PHOS, MORPH, CBC, TROPHS #### [address] [address] MCHC 32.9 G/dL Normal 32.0-36.0 [facility] ([place] Comment on above: Performed By: #### C AION, GFR, PBNP, ADIFF, CMP, A1C, MG, ANEU, TSH, PHOS, MORPH, CBC, TROPHS #### [place] [address] MCV (RBC) [Entitic vol] 94.2 fL Normal 80.0-99.0 [facility] ([place]) Comment on above: Performed By: #### C AION, GFR, PBNP, ADIFF, CMP, A1C, MG, ANEU, TSH, PHOS, MORPH, CBC, TROPHS #### [place] [address] Platelet 368 10 3/mcL Normal 150-450 [facility] ([place] Comment on above: Performed By: #### C AION, GFR, PBNP, ADIFF, CMP, A1C, MG, ANEU, TSH, PHOS, MORPH, CBC, TROPHS #### [place] [id number] Platelet mean volume (Bld) [Entitic vol] 8.0 fL Normal 6.6-10.5 [facility] ([place] Comment on above: Performed By: #### C AION, GFR, PBNP, ADIFF, CMP, A1C, MG, ANEU, TSH, PHOS, MORPH, CBC, TROPHS #### [place] [address] RBC 2.38 10 6/mcL Low 4.10-5.30 [facility] ([place]) Comment on above: Performed By: #### C AION, GFR, PBNP, ADIFF, CMP, A1C, MG, ANEU, TSH, PHOS, MORPH, CBC, TROPHS #### [place] [id number] WBC 31.0 10 3/mcL High 4.5-10.8 [facility] ([place] Comment on above: Performed By: #### C AION, GFR, PBNP, ADIFF, CMP, A1C, MG, ANEU, TSH, PHOS, MORPH, CBC, TROPHS #### [address] [address] WBC 28.4 10 3/mcL High 4.5-10.8 [facility] [place] Comment on above: Performed By: #### C AION, GFR, PBNP, ADIFF, CMP, A1C, MG, ANEU, TSH, PHOS, MORPH, CBC, TROPHS #### [place] [address] Erythrocyte distribution width (RBC) [Ratio] 13.9 % Normal 11.5-15.5 [facility] ([place] Comment on above: Performed By: #### C AION, GFR, PBNP, ADIFF, CMP, A1C, MG, ANEU, TSH, PHOS, MORPH, CBC, TROPHS #### [place] [id number] Hematocrit (Bld) [Volume fraction] 31.6 % Low 34.0-46.0 [facility] ([place] Comment on above: Performed By: #### C AION, GFR, PBNP, ADIFF, CMP, A1C, MG, ANEU, TSH, PHOS, MORPH, CBC, TROPHS #### [place] [address] Hgb 10.6 G/dL Low 12.0-16.0 [facility] [place] Comment on above: Performed By: #### C AION, GFR, PBNP, ADIFF, CMP, A1C, MG, ANEU, TSH, PHOS, MORPH, CBC, TROPHS #### [place] [id number] MCH (RBC) [Entitic mass] 31.6 pg Normal 27.0-33.0 [facility] [place] Comment on above: Performed By: #### C AION, GFR, PBNP, ADIFF, CMP, A1C, MG, ANEU, TSH, PHOS, MORPH, CBC, TROPHS #### [place] [id number] MCHC 33.7 G/dL Normal 32.0-36.0 [facility] ([place] Comment on above: Performed By: #### C AION, GFR, PBNP, ADIFF, CMP, A1C, MG, ANEU, TSH, PHOS, MORPH, CBC, TROPHS #### [address] [address] MCV (RBC) [Entitic vol] 93.9 fL Normal 80.0-99.0 [facility] ([place] Comment on above: Performed By: #### C AION, GFR, PBNP, ADIFF, CMP, A1C, MG, ANEU, TSH, PHOS, MORPH, CBC, TROPHS #### [address] [address] Platelet 353 10 3/mcL Normal 150-450 [facility] ([place] Comment on above: Performed By: #### C AION, GFR, PBNP, ADIFF, CMP, A1C, MG, ANEU, TSH, PHOS, MORPH, CBC, TROPHS #### [address] [address] Platelet mean volume (Bld) [Entitic vol] 7.9 fL Normal 6.6-10.5 [facility] ([place] Comment on above: Performed By: #### C AION, GFR, PBNP, ADIFF, CMP, A1C, MG, ANEU, TSH, PHOS, MORPH, CBC, TROPHS #### [address] [address] RBC 3.36 10 6/mcL Low 4.10-5.30 [facility] ([place] Comment on above: Performed By: #### C AION, GFR, PBNP, ADIFF, CMP, A1C, MG, ANEU, TSH, PHOS, MORPH, CBC, TROPHS #### [address] [address] CBC with AUTO DIFFon 024 BAS0 % 1.30 % Normal 0-2 [facility] Comment on above: Performed By: #### C BC, DIFF (MANUAL) #### [facility] [address] [place] [address] Basophils (Bld) [#/Vol] 0.3 10*3/uL High 0-0.1 [facility] Comment on above: Performed By: #### C BC, DIFF (MANUAL) #### [address] [place] [address] Eosinophils (Bld) [#/Vol] 0.0 10*3/uL Normal 0.0-1.80 [facility] Comment on above: Performed By: #### C BC, DIFF (MANUAL) #### [address] [place] [address] Eosinophils/100 WBC (Bld) 0.2 % Normal 0-8 [facility] Comment on above: Performed By: #### C BC, DIFF (MANUAL) #### [address] [place] [address] GRAN # 18.5 K/uL High 2.2-9.1 [facility] Comment on above: Performed By: #### C BC, DIFF (MANUAL) #### [address] [address] GRAN % 81.3 % High 42-80 [facility] Comment on above: Performed By: #### C BC, DIFF (MANUAL) #### [address] [address] Hematocrit (Bld) [Volume fraction] 38.9 % Normal 37.0-47.0 [facility] Comment on above: Performed By: #### C BC, DIFF (MANUAL) #### [address] [address] Hemoglobin (Bld) [Mass/Vol] 13.2 g/dL Normal 12.0-16.0 [facility] Comment on above: Performed By: #### C BC, DIFF (MANUAL) #### [address] [address] Lymphocytes (Bld) [#/Vol] 2.3 10*3/uL Normal 1.0-4.0 [facility] Comment on above: Performed By: #### C BC, DIFF (MANUAL) #### [address] [address] Lymphocytes/100 WBC (Bld) 10.0 % Low 16-48 [facility] Comment on above: Performed By: #### C BC, DIFF (MANUAL) #### [address] [address] MCV (RBC) [Entitic vol] 92.9 fL Normal 80-97 [facility] Comment on above: Performed By: #### C BC, DIFF (MANUAL) #### [facility] [address] [place] [address] MEAN CORPUSCULAR HGB 31.5 pg Normal 26.0-32.0 [facility] Comment on above: Performed By: #### C BC, DIFF (MANUAL) #### [facility] [address] [place] [address] MEAN CORPUSCULAR HGB CONC 33.9 g/dL Normal 31.0-36.0 [facility] Comment on above: Performed By: #### C BC, DIFF (MANUAL) #### [facility] [address] [place] [address] MONO DISTRIB WIDTH 18.36 Normal 0-20 [facility] Comment on above: Result Comment: For ED adult patients suspected of sepsis, MDW<=20.0 does not rule out sepsis or risk of sepsis Performed By: #### C BC, DIFF (MANUAL) #### [address] [place] [address] Monocytes (Bld) [#/Vol] 1.6 10*3/uL Normal 0.1-1.7 [facility] Comment on above: Performed By: #### C BC, DIFF (MANUAL) #### [address] [place] [address] Monocytes/100 WBC (Bld) 7.2 % Normal 3-9 [facility] Comment on above: Performed By: #### C BC, DIFF (MANUAL) #### [facility] [address] [place] [address] Platelet mean volume (Bld) [Entitic vol] 7.9 fL Normal 6.6-10.5 [facility] Comment on above: Performed By: #### C BC, DIFF (MANUAL) #### [facility] [address] [place] [address] Platelets (Bld) [#/Vol] 357 10*3/uL Normal 140-450 [facility] Comment on above: Performed By: #### C BC, DIFF (MANUAL) #### [facility] [address] [place] [address] RBC (Bld) [#/Vol] 4.19 10*6/uL Low 4.20-5.50 [facility] Comment on above: Performed By: #### C BC, DIFF (MANUAL) #### [facility] [address] [place] [address] RED CELL DISTRI WIDTH 14.1 % Normal 11.0-15.5 [facility] Comment on above: Performed By: #### C BC, DIFF (MANUAL) #### [facility] [address] [place] [address] WBC (Bld) [#/Vol] 22.7 10*3/uL High 4.0-11.0 [facility] Comment on above: Performed By: #### C BC, DIFF (MANUAL) #### [facility] [address] [place] [address] CHEST-PORTABLEon 10-25-2023 CHEST-PORTABLE [employer] Female [id number] Ordering physician: Jeremiah Ann LOC:ER [id number] Attending physician: [id number] DO S: 10/25/23 Acc#: [id number] Exam/Proc: CHEST-PORTABLE Dept: RADIOLOGY EXAMINATION: Exam Title:ONE XRAY VIEW OF THE CHEST Completed Time: 10/25/2023 11:58 am Procedure Description:CHEST ONE VIEW AP/PA COMPARISON: July 08, 2023 chest x-ray HISTORY: ORDERING SYSTEM PROVIDED HISTORY: TECHNOLOGIST PROVIDED HISTORY: Reason for Exam: Chest pain FINDINGS: External chest leads. No gross consolidative pneumonia, effusion, or pneumothorax. Heart size normal. Aortic arch contour normal. No gross acute osseous process demonstrated. IMPRESSION: No acute cardiopulmonary process demonstrated. Electronically signed By Moy Mccabe DO 10/25/2023 11:59:52 AM EST Workstation ID : [id number] REPORT SIGNATURE ON FILE Electronically Signed Date/Time: 10/25/23 1159 Dictated Date/time: 10/25/23 1159 CC: [facility] CMPon 10-25-2023 Albumin Level 2.5 G/dL Low 3.2-4.8 [facility] ([place]) Comment on above: Performed By: #### C AION, GFR, PBNP, ADIFF, CMP, A1C, MG, ANEU, TSH, PHOS, MORPH, CBC, TROPHS #### [address] [address] Albumin/Globulin [Mass ratio] 1.2 {ratio} Normal 0.9-1.6 [facility] ([place]) Comment on above: Performed By: #### C AION, GFR, PBNP, ADIFF, CMP, A1C, MG, ANEU, TSH, PHOS, MORPH, CBC, TROPHS #### [address] [address] ALP [Catalytic activity/Vol] 60 U/L Normal 38-126 [facility] ([place]) Comment on above: Performed By: #### C AION, GFR, PBNP, ADIFF, CMP, A1C, MG, ANEU, TSH, PHOS, MORPH, CBC, TROPHS #### [address] [address] ALT [Catalytic activity/Vol] 53 U/L High 10-49 [facility] ([place] Comment on above: Performed By: #### C AION, GFR, PBNP, ADIFF, CMP, A1C, MG, ANEU, TSH, PHOS, MORPH, CBC, TROPHS #### [address] [address] AST [Catalytic activity/Vol] 295 U/L High 8-34 [facility] ([place] Comment on above: Performed By: #### C AION, GFR, PBNP, ADIFF, CMP, A1C, MG, ANEU, TSH, PHOS, MORPH, CBC, TROPHS #### [address] [address] Bili Total 0.50 mg/dL Normal 0.20-1.20 [facility] ([place]) Comment on above: Result Comment: Use of this assay is not recommended for patients undergoing treatment with eltrombopag due to the potential for falsely elevated results. Performed By: #### C AION, GFR, PBNP, ADIFF, CMP, A1C, MG, ANEU, TSH, PHOS, MORPH, CBC, TROPHS #### [address] [address] BUN/Creatinine Ratio 22.5 ratio High 10.0-22.0 [facility] ([place]) Comment on above: Performed By: #### C AION, GFR, PBNP, ADIFF, CMP, A1C, MG, ANEU, TSH, PHOS, MORPH, CBC, TROPHS #### [place] [id number] Calcium [Mass/Vol] 7.5 mg/dL Low 8.7-10.4 [facility] ([place]) Comment on above: Performed By: #### C AION, GFR, PBNP, ADIFF, CMP, A1C, MG, ANEU, TSH, PHOS, MORPH, CBC, TROPHS #### [place] [id number] Chloride [Moles/Vol] 117 mmol/L High 98-110 [facility] ([place]) Comment on above: Performed By: #### C AION, GFR, PBNP, ADIFF, CMP, A1C, MG, ANEU, TSH, PHOS, MORPH, CBC, TROPHS #### [address] [address] CO2 [Moles/Vol] 22 mmol/L Normal 22-32 [facility] ([place]) Comment on above: Performed By: #### C AION, GFR, PBNP, ADIFF, CMP, A1C, MG, ANEU, TSH, PHOS, MORPH, CBC, TROPHS #### [address] [address] Creatinine [Mass/Vol] 0.80 mg/dL Normal 0.50-1.20 [facility] ([place]) Comment on above: Performed By: #### C AION, GFR, PBNP, ADIFF, CMP, A1C, MG, ANEU, TSH, PHOS, MORPH, CBC, TROPHS #### [address] [address] Electrolyte Balance 4.0 mEq/L Normal 4.0-15.0 [facility] ([place]) Comment on above: Performed By: #### C AION, GFR, PBNP, ADIFF, CMP, A1C, MG, ANEU, TSH, PHOS, MORPH, CBC, TROPHS #### [address] [address] Globulin 2.0 G/dL Normal 1.5-3.8 [facility] ([place]) Comment on above: Performed By: #### C AION, GFR, PBNP, ADIFF, CMP, A1C, MG, ANEU, TSH, PHOS, MORPH, CBC, TROPHS #### [address] [address] Glucose [Mass/Vol] 224 mg/dL High 70-110 [facility] ([place]) Comment on above: Performed By: #### C AION, GFR, PBNP, ADIFF, CMP, A1C, MG, ANEU, TSH, PHOS, MORPH, CBC, TROPHS #### [address] [address] Potassium [Moles/Vol] 4.2 mmol/L Normal 3.5-5.0 [facility] ([place]) Comment on above: Performed By: #### C AION, GFR, PBNP, ADIFF, CMP, A1C, MG, ANEU, TSH, PHOS, MORPH, CBC, TROPHS #### [address] [address] Sodium [Moles/Vol] 143 mmol/L Normal 136-145 [facility] ([place]) Comment on above: Performed By: #### C AION, GFR, PBNP, ADIFF, CMP, A1C, MG, ANEU, TSH, PHOS, MORPH, CBC, TROPHS #### [address] [address] Total Protein 4.5 G/dL Low 5.7-8.2 [facility] ([place]) Comment on above: Result Comment: No te - New Reference Range in effect 20 Performed By: #### C AION, GFR, PBNP, ADIFF, CMP, A1C, MG, ANEU, TSH, PHOS, MORPH, CBC, TROPHS #### [address] [address] Urea nitrogen [Mass/Vol] 18.0 mg/dL Normal 8.0-22.0 [facility] [facility] ([place]) Comment on above: Performed By: #### C AION, GFR, PBNP, ADIFF, CMP, A1C, MG, ANEU, TSH, PHOS, MORPH, CBC, TROPHS #### [address] [address] Albumin Level 3.4 G/dL Normal 3.2-4.8 [facility] ([place]) Comment on above: Performed By: #### C AION, GFR, PBNP, ADIFF, CMP, A1C, MG, ANEU, TSH, PHOS, MORPH, CBC, TROPHS #### [address] [address] Albumin/Globulin [Mass ratio] 1.4 {ratio} Normal 0.9-1.6 [facility] ([place]) Comment on above: Performed By: #### C AION, GFR, PBNP, ADIFF, CMP, A1C, MG, ANEU, TSH, PHOS, MORPH, CBC, TROPHS #### [address] [address] ALP [Catalytic activity/Vol] 78 U/L Normal 38-126 [facility] ([place]) Comment on above: Performed By: #### C AION, GFR, PBNP, ADIFF, CMP, A1C, MG, ANEU, TSH, PHOS, MORPH, CBC, TROPHS #### [address] [address] ALT [Catalytic activity/Vol] 68 U/L High 10-49 [facility] ([place]) Comment on above: Performed By: #### C AION, GFR, PBNP, ADIFF, CMP, A1C, MG, ANEU, TSH, PHOS, MORPH, CBC, TROPHS #### [address] [address] AST [Catalytic activity/Vol] 386 U/L High 8-34 [facility] ([place]) Comment on above: Performed By: #### C AION, GFR, PBNP, ADIFF, CMP, A1C, MG, ANEU, TSH, PHOS, MORPH, CBC, TROPHS #### [address] [address] Bili Total 0.40 mg/dL Normal 0.20-1.20 [facility] ([place]) Comment on above: Result Comment: Use of this assay is not recommended for patients undergoing treatment with eltrombopag due to the potential for falsely elevated results. Performed By: #### C AION, GFR, PBNP, ADIFF, CMP, A1C, MG, ANEU, TSH, PHOS, MORPH, CBC, TROPHS #### [address] [address] BUN/Creatinine Ratio 24.2 ratio High 10.0-22.0 [facility] ([place]) Comment on above: Performed By: #### C AION, GFR, PBNP, ADIFF, CMP, A1C, MG, ANEU, TSH, PHOS, MORPH, CBC, TROPHS #### [address] [address] Calcium [Mass/Vol] 8.9 mg/dL Normal 8.7-10.4 [facility] ([place]) Comment on above: Performed By: #### C AION, GFR, PBNP, ADIFF, CMP, A1C, MG, ANEU, TSH, PHOS, MORPH, CBC, TROPHS #### [address] [address] Chloride [Moles/Vol] 112 mmol/L High 98-110 [facility] ([place]) Comment on above: Performed By: #### C AION, GFR, PBNP, ADIFF, CMP, A1C, MG, ANEU, TSH, PHOS, MORPH, CBC, TROPHS #### [address] [address] CO2 [Moles/Vol] 21 mmol/L Low 22-32 [facility] [place] Comment on above: Performed By: #### C AION, GFR, PBNP, ADIFF, CMP, A1C, MG, ANEU, TSH, PHOS, MORPH, CBC, TROPHS #### [address] [address] Creatinine [Mass/Vol] 0.66 mg/dL Normal 0.50-1.20 [facility] ([place]) Comment on above: Performed By: #### C AION, GFR, PBNP, ADIFF, CMP, A1C, MG, ANEU, TSH, PHOS, MORPH, CBC, TROPHS #### [address] [address] Electrolyte Balance 8.0 mEq/L Normal 4.0-15.0 [facility] ([place]) Comment on above: Performed By: #### C AION, GFR, PBNP, ADIFF, CMP, A1C, MG, ANEU, TSH, PHOS, MORPH, CBC, TROPHS #### [address] [address] Globulin 2.5 G/dL Normal 1.5-3.8 [facility] [place] Comment on above: Performed By: #### C AION, GFR, PBNP, ADIFF, CMP, A1C, MG, ANEU, TSH, PHOS, MORPH, CBC, TROPHS #### [place] [address] Glucose [Mass/Vol] 168 mg/dL High 70-110 [facility] ([place]) Comment on above: Performed By: #### C AION, GFR, PBNP, ADIFF, CMP, A1C, MG, ANEU, TSH, PHOS, MORPH, CBC, TROPHS #### [address] [address] Potassium [Moles/Vol] 3.9 mmol/L Normal 3.5-5.0 [facility] ([place]) Comment on above: Performed By: #### C AION, GFR, PBNP, ADIFF, CMP, A1C, MG, ANEU, TSH, PHOS, MORPH, CBC, TROPHS #### [place] [id number] Sodium [Moles/Vol] 141 mmol/L Normal 136-145 [facility] ([place]) Comment on above: Performed By: #### C AION, GFR, PBNP, ADIFF, CMP, A1C, MG, ANEU, TSH, PHOS, MORPH, CBC, TROPHS #### [address] [address] Total Protein 5.9 G/dL Normal 5.7-8.2 [facility] ([place]) Comment on above: Result Comment: No te - New Reference Range in effect 20 Performed By: #### C AION, GFR, PBNP, ADIFF, CMP, A1C, MG, ANEU, TSH, PHOS, MORPH, CBC, TROPHS #### [address] [address] Urea nitrogen [Mass/Vol] 16.0 mg/dL Normal 8.0-22.0 [facility] [place] Comment on above: Performed By: #### C AION, GFR, PBNP, ADIFF, CMP, A1C, MG, ANEU, TSH, PHOS, MORPH, CBC, TROPHS #### [address] [address] COMPREHENSIVE METABOLIC PANE Werner 10-25-2023 Albumin [Mass/Vol] 3.9 g/dL Normal 3.4-5.0 [facility] Comment on above: Performed By: #### M KASANDRA Escobedo, LIP #### [address] [address] Albumin/Globulin [Mass ratio] 1.0 {ratio} Low 1.1-1.8 [facility] Comment on above: Performed By: #### M KASANDRA Escobedo, LIP #### [facility] [address] [place] [address] ALP [Catalytic activity/Vol] 101 U/L Normal 45-117 [facility] Comment on above: Performed By: #### M Fanny TRO, LIP #### [facility] [address] [place] [address] ALT [Catalytic activity/Vol] 72 U/L Normal 12-78 [facility] Comment on above: Performed By: #### M KASANDRA Escobedo, LIP #### [facility] [address] [place] [address] Anion gap [Moles/Vol] 9.2 mmol/L Low 11-23 [facility] Comment on above: Performed By: #### M Fanny TRO, LIP #### [facility] [address] [place] [address] AST [Catalytic activity/Vol] 429 U/L High 15-37 [facility] Comment on above: Performed By: #### M N, TRO, LIP #### [facility] [address] [place] [address] Bilirubin [Mass/Vol] 0.4 mg/dL Normal 0.2-1.0 [facility] Comment on above: Performed By: #### M N, TRO, LIP #### [facility] [address] [place] [address] Calcium [Mass/Vol] 9.4 mg/dL Normal 8.5-10.1 [facility] Comment on above: Performed By: #### M N, TRO, LIP #### [facility] [address] [place] [address] Chloride [Moles/Vol] 110 mmol/L High 98-107 [facility] Comment on above: Performed By: #### M N, TRO, LIP #### [facility] [address] [place] [address] CO2 [Moles/Vol] 25.0 mmol/L Normal 21-32 [facility] Comment on above: Performed By: #### M N, TRO, LIP #### [facility] [address] [place] [address] Creatinine [Mass/Vol] 0.90 mg/dL Normal 0.55-1.02 [facility] Comment on above: Performed By: #### M N, TRO, LIP #### [facility] [address] [place] [address] GFR > 60.0 [facility] Comment on above: Performed By: #### M N TRO, LIP #### [facility] [address] [place] [address] GFR AM > 60.0 [facility] Comment on above: Result Comment: THE NORMAL LEVEL OF GFR VARIES ACCORDING TO AGE, SEX, AND BODY SIZE. A GFR LEVEL OF LESS THAN 60 ML/MIN REPRESENTS LOSS OF THE ADULT LEVEL OF NORMAL KIDNEY FUNCTION. Performed By: #### M N, TRO, LIP #### [facility] [address] [place] [address] Globulin (S) [Mass/Vol] 3.7 g/dL Normal 2.5-4.6 [facility] Comment on above: Performed By: #### M N, TRO, LIP #### [facility] [address] [place] [address] Glucose [Mass/Vol] 152 mg/dL High 70-100 [facility] Comment on above: Performed By: #### M N TRO, LIP #### [place] [address] [place] [address] Potassium [Moles/Vol] 3.6 mmol/L Normal 3.5-5.1 [facility] Comment on above: Performed By: #### M N TRO, LIP #### [place] [facility] [address] [place] [address] Protein [Mass/Vol] 7.6 g/dL Normal 6.0-8.3 [facility] Comment on above: Performed By: #### M NKASANDRA, LIP #### [facility] [address] [place] [address] Sodium [Moles/Vol] 140 mmol/L Normal 136-145 [facility] Comment on above: Performed By: #### M NKASANDRA, LIP #### [facility] [address] [place] [address] Urea nitrogen [Mass/Vol] 20.0 mg/dL High 7-18 [facility] Comment on above: Performed By: #### M NKASANDRA, LIP #### [facility] [address] [place] [address] CT ABDOMEN/PELVIS W/O CONTRA STon 10-25-2023 CT ABDOMEN/PELVIS W/O CONTRAST ORIGINAL EXAMINATION: CT OF THE ABDOMEN AND PELVIS WITHOUT CONTRAST 10/25/2023 6:45 pm TECHNIQUE: CT of the abdomen and pelvis was performed without the administration of intravenous contrast. Multiplanar reformatted images are provided for review. Automated exposure control, iterative reconstruction, and/or weight based adjustment of the mA/kV was utilized to reduce the radiation dose to as low as reasonably achievable. COMPARISON: None. HISTORY: ORDERING SYSTEM PROVIDED HISTORY: Reason for Exam: STEMI post cath, suspected retroperitoneal bleed FINDINGS: The lung bases are unremarkable. The liver, spleen, adrenal glands, and pancreas are unremarkable. Hyperdense material within the gallbladder favors vicarious excretion of contrast. The kidneys appear symmetric without evidence of hydronephrosis. Contrast is seen within the bilateral kidneys and renal pelvis likely relating to history of recent cardiac catheterization. Nondilated loops of small bowel. The appendix is not identified and reported surgically absent. The colon demonstrates no acute abnormality. There is no free intraperitoneal air. Nonaneurysmal minimally atherosclerotic abdominal aorta. No lymphadenopathy is identified. The uterus is surgically absent. Scattered phleboliths. There are hazy infiltrative changes surrounding the right groin extending laterally into the right anterior thigh musculature corresponding to postsurgical changes relating to recent cardiac catheterization. There is extensive retroperitoneal hemorrhage which extends into the upper abdomen adjacent to the right hepatic lobe and posterior to the right kidney. A small amount of hemorrhage is also seen layering within the left paracolic gutter. Blood extends into the pelvic extraperitoneal spaces bilaterally adjacent to the urinary bladder. The pelvis is difficult to evaluate without IV contrast. The bladder is suspected to demonstrate marked wall thickening with intraluminal contrast. Small amount of contrast is also seen within the vagina. Multilevel degenerative changes of the spine most prominent the L5-S1 level. No acute or aggressive osseous abnormality. IMPRESSION: Lack of IV contrast limits some evaluation. Within this constraint: Prominent retroperitoneal hemorrhage predominantly on the right extending into the upper abdomen adjacent to the liver and posterior to the right kidney. Postprocedural changes within the right groin relating to history of recent cardiac catheterization. Consider contrast enhanced exam for evaluation of active extravasation. Suspected marked wall thickening of the bladder which is favored reactive secondary to prominent adjacent pelvic extraperitoneal hemorrhage/blood although correlation with urinalysis is recommended. I have personally reviewed the images of this examination and agree with the resident's finding and interpretation. Interpreted by: Jama Lomax MD Preliminary Report By: Lizzeth Nascimento Electronically signed By Jama Lomax MD Dictated Date: 10/25/2023 6:48:03 PM Prelim Date: 10/25/2023 6:59:18 PM Sign Date: 10/25/2023 7:05:01 PM Ordering Provider: ALIDA Elizabeth [facility] ([place]) CT ANGIOGRAPHY ABD AORTA + I LIOFEMORALon 10-25-2023 CT ANGIOGRAPHY ABD AORTA + ILIOFEMORAL ORIGINAL EXAMINATION: CTA OF THE ABDOMEN AND PELVIS WITH CONTRAST 10/25/2023 8:53 pm: TECHNIQUE: CTA of the abdomen and pelvis was performed with the administration of intravenous contrast. Multiplanar reformatted images are provided for review. MIP images are provided for review. Automated exposure control, iterative reconstruction, and/or weight based adjustment of the mA/kV was utilized to reduce the radiation dose to as low as reasonably achievable. COMPARISON: Same day noncontrast CT abdomen/pelvis. HISTORY: ORDERING SYSTEM PROVIDED HISTORY: Reason for Exam: Retroperitoneal bleed with hemorrhagic shock FINDINGS: There is redemonstration of extensive predominantly right-sided retroperitoneal hemorrhage extending into the upper abdomen adjacent to the right hepatic lobe and posterior to the right kidney not significantly changed from same day CT abdomen/pelvis. Extension into the pelvic extraperitoneum is again noted with marked wall thickening of the bladder. No findings to suggest active contrast extravasation at this time. The aorta is nonaneurysmal. There are single bilateral patent renal arteries without significant stenosis. Mild atherosclerotic plaque is seen of the proximal right common iliac artery. The ostium of the celiac and SMA arteries are widely patent. MARIA E is seen. There is a short segment arterial dissection of the distal most aspect of the external iliac artery extending into the proximal common femoral artery ([phone]). The vasculature including the superficial femoral artery and profundus femoris appear opacified without significant stenosis. Left common iliac artery and branching vasculature are unremarkable. Again noted are hazy infiltrative changes surround the right groin extending laterally corresponding to postprocedural changes to recent cardiac catheterization. The remaining findings are unchanged. IMPRESSION: Similar prominent retroperitoneal/extr aperitoneal hemorrhage without evidence of active contrast extravasation. 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 I have personally reviewed the images of this examination and agree with the resident's finding and interpretation. Interpreted by: Jama Lomax MD Preliminary Report By: Lizzeth Nascimento Electronically signed By Jama Lomax MD Dictated Date: 10/25/2023 8:54:52 PM Prelim Date: 10/25/2023 9:07:29 PM Sign Date: 10/25/2023 9:23:17 PM Ordering Provider: ALIDA ORNELAS Normal [facility] ([place]) DIFFERENTIALon 10-25-2023 IMMATURE GRANS NONE SEEN Normal [facility] Comment on above: Performed By: #### C BC, DIFF (MANUAL) #### [facility] [address] [place] [address] Lymphocytes/100 WBC (Bld) 9 % Low 16-48 [facility] Comment on above: Performed By: #### C BC, DIFF (MANUAL) #### [facility] [address] [place] [address] Monocytes/100 WBC (Bld) 3 % Normal 3-9 [facility] Comment on above: Performed By: #### C BC, DIFF (MANUAL) #### [facility] [address] [place] [address] Neutrophils/100 WBC (Bld) 88 % High 42-80 [facility] Comment on above: Performed By: #### C BC, DIFF (MANUAL) #### [facility] [address] [place] [address] PLATELET ESTIMATE NORMAL Normal [facility] Comment on above: Performed By: #### C BC, DIFF (MANUAL) #### [facility] [address] [place] [address] RBC morphology finding Nom (Bld) ESSENTIALLY NORMAL Normal [facility] Comment on above: Performed By: #### C BC, DIFF (MANUAL) #### [facility] [address] [place] [address] TOTAL CELLS COUNTED 100 #CELLS Normal [facility] Comment on above: Performed By: #### C BC, DIFF (MANUAL) #### [facility] [address] [place] [address] ED.PDOCon 10-25-2023 ED.PDOC HOLDEN CHILDERS Female [id number] Attending provider: [facility] ER [id number] Jeremiah Ann 1970 53 DOS: 10/25/23 Hx/Exam - History of Present Illness Chief Complaint: CHEST PAIN Additional Comments: 53-year-old female comes in complaining of chest pain in her ribs bilaterally. She also has epigastric pain. It started yesterday with long with some chills. She rates the pain as a burning discomfort aching in the epigastric and lower chest region. She rates an 8 out of 10. She complains of some nausea. - Review of Systems All Other Systems: Pertinent Positives in HPI, All Other Systems Negative - Past Medical History ED PMH: Yes Anxiety, No Cancer, No Diabetes, Yes HTN, Yes Migraine - Past Surgical History Surgical History: Yes Appendectomy, Yes Hysterectomy, Yes Tonsillectomy, Yes Other (R FOOT) - Social History Smoking Status: Current every day smoker Hx Alcohol Use: Yes (occASIONAL) Living Conditions: Family - Physical Exam General Appearance: awake, alert, no apparent distress Eyes: EOMI, conjunctivae clear, no scleral icterus Head, Ears, Nose, and Throat: pharynx normal, mucous membranes moist Neck: no stridor Respiratory: lungs clear, no wheezes/rhonchi/rale s, no respiratory distress, no accessory muscle use, chest wall tender (Some tenderness to palpation along lower rib margins bilateral) Cardiovascular: regular rate, rhythm, no murmur, no gallop Abdomen/GI: soft, non-distended, normal bowel sounds, no organomegaly, no pulsatile mass, no peritoneal signs, epigastric tenderness Back: non tender Extremity: normal inspection Pulses: Radial: 2+ Neurologic: speech clear/fluent, concrete block layer II-XII intact Psychiatric: oriented x3, calm, normal affect Skin Exam: warm/dry, normal color - Source of History Source of History: Nursing Notes/Vital Signs/Triage Reviewed and Agree Note(s) - Physician Notes Additional Notes, See Orders for Details: 10/25/23 13:27 MDM Differential Diagnosis includes but is not limited to: Influenza, COVID-19, RSV, pneumonia, pancreatitis, cholecystitis, ACS 10/25/23 13:29 Taken her power was down for about 60 minutes which took out the lab and we had a delay in getting lab results back. 10/25/23 13:33 11//10/25/23 16:42 11:40 Troponin 4.1 > [address]606.0 H What is interesting as she had the same ST changes in her EKG in July 08, 2023 and her Trope was normal at that time. She has influenza A which would explain the chills and possibly the abdominal pain. She is not in any distress but she is got to troponin of over 25,000 which certainly with the ST changes possibly the anterior lead V2 is the culprit I have to call her a STEMI at this time. I called and spoke with Chuy after immediately making her STEMI upon learning her troponin value. I spoke with Dr. Terrazas the interventionalists. He is excepting the patient in transfer. Squad is already been called. Patient getting Brilinta 180 mg p.o. as well as 325 mg of aspirin and 4000 units of heparin IV. 10/25/23 13:35 10/25/23 11:40 WBC 22.7 H RBC 4.19 L Hgb 13.2 Hct 38.9 Plt Count 357 D Gran % (Auto) 81.3 H Lymph % (Auto) 10.0 L [place] % (Auto) 7.2 Eos % (Auto) 0.2 Baso % (Auto) 1.30 Lymph # (Auto) 2.3 [place] # (Auto) 1.6 Eos # (Auto) 0.0 Baso # (Auto) 0.3 H Absolute Gran (auto) 18.5 H Total Counted 100 Seg Neuts % (Manual) 88 H Lymphocytes % (Manual) 9 L Monocytes % (Manual) 3 Monocyte Dist Width 18.36 Patient influenza A positive 10/25/23 11:40 Sodium 140 Potassium 3.6 Chloride 110 H Carbon Dioxide 25.0 Anion Gap 9.2 L BUN 20.0 H Creatinine 0.90 Est GFR ( Amer) > 60.0 Est GFR (Non-Af Amer) > 60.0 Glucose 152 H Lactic Acid 2.0 Calcium 9.4 Total Bilirubin 0.4 AST 429 H ALT 72 Alkaline Phosphatase 101 Troponin > 83682.0 H Total Protein 7.6 Albumin 3.9 Globulin 3.7 Albumin/Globulin Ratio 1.0 L Lipase 46 Chest x-ray FINDINGS: External chest leads. No gross consolidative pneumonia, effusion, or pneumothorax. Heart size normal. Aortic arch contour normal. No gross acute osseous process demonstrated. IMPRESSION: No acute cardiopulmonary process demonstrated. Electronically signed By Moy Mccabe DO 10/25/2023 11:59:52 AM EST Workstation ID : [id number] 10/25/23 13:36 Interestingly enough for such a high troponin no sign of any pulmonary vascular congestion. No pleural effusion. No widened mediastinum. No sign of pancreatitis or cholecystitis. Patient made a STEMI given the markedly elevated troponins. Only real change in her EKG was the single lead V2. Patient aware of plan of care and is in agreement to plan of care arrived through shared decision making. EKG - EKG EKG Interpretation: Preliminary ED Interpretation (Independent interpretation of EKG: Normal sinus rhythm 72 bpm. Slight left atrial enlargement. ST elevation in inferior leads not (more content not included)... [facility]ematocrit (Bld) [Volume fraction] 35.5 % Normal 34.0-46.0 [facility] ([place]) Comment on above: Performed By: #### C AION, GFR, PBNP, ADIFF, CMP, A1C, MG, ANEU, TSH, PHOS, MORPH, CBC, TROPHS #### [address] [address] Hgb 11.9 G/dL Low 12.0-16.0 [facility] ([place]) Comment on above: Performed By: #### C AION, GFR, PBNP, ADIFF, CMP, A1C, MG, ANEU, TSH, PHOS, MORPH, CBC, TROPHS #### [address] [address] LABORATORYOrdered By: Geovanni Grimes on 10-25-2023 Lactate [Moles/Vol] 1.7 mmol/L Normal 0.2 - 2. 0 mmol/L Auto Chem SS LABORATORYOrdered By: SYSTEM SYSTEM on 10-25-2023 Troponin I.cardiac DL <= 0.01 ng/mL [Mass/Vol] ng/L High 0.00 - 34.00 ng/L ADM SS Platelets LM Ql (Bld) Normal *NA* (10/25/23 8:15 PM) Invalid Interpretation Code AH Workflow SS RBC morphology finding Nom (Bld) See Below 4 *NA* (10/25/23 8:15 PM) Invalid Interpretation Code AH Workflow SS Comment on above: Result Comment: RBC Morphology appears Normal Albumin BCP dye [Mass/Vol] 2.5 G/dL Low 3.2 - 4.8 G/dL ADM SS Albumin/Globulin [Mass ratio] 1.2 {ratio} Normal 0.9 - 1.6 ratio ADM SS ALP [Catalytic activity/Vol] 60 U/L Normal 38 - 126 U/L ADM SS ALT No additional P-5'-P [Catalytic activity/Vol] 53 U/L High 10 - 49 U/L ADM SS AST [Catalytic activity/Vol] 295 U/L High 8 - 34 U/L ADM SS Bilirubin [Mass/Vol] 0.50 mg/dL Normal 0.20 - 1.20 mg/dL ADM SS Comment on above: Interpretive Data: U se of this assay is not recommended for patients undergoing treatment with eltrombopag due to the potential for falsely elevated results. Calcium [Mass/Vol] 7.5 mg/dL Low 8.7 - 10. 4 mg/dL ADM SS Chloride [Moles/Vol] 117 mmol/L High 98 - 11 0 mEq/L ADM SS CO2 [Moles/Vol] 22 mmol/L Normal 22 - 32 mEq/L ADM SS Creatinine [Mass/Vol] 0.80 mg/dL Normal 0.50 - 1.20 mg/dL ADM SS Electrolyte Balance 4.0 mEq/L Normal 4.0 - 15 .0 mEq/L ADM SS GFR/1.73 sq M.predicted among blacks MDRD (S/P/Bld) [Vol rate/Area] ml/min/1.73sqm Invalid Interpretation Code [facility] Comment on above: Interpretive Data: GFR Population mean for , Non- Americans Ages 20-29 = 116 mL/min/1.73 sq.m. Ages 30-39 = 107 mL/min/1.73 sq.m. Ages 40-49 = 99 mL/min/1.73 sq.m. Ages 50-59 = 93 mL/min/1.73 sq.m. Ages 60-69 = 85 mL/min/1.73 sq.m. Ages 70+ = 75 mL/min/1.73 sq.m. Chronic Kidney Disease: Less than 60 mL/min/1.73 square meters End Stage Renal Disease: Less than 15 mL/min/1.73 square meters GFR/1.73 sq M.predicted among non-blacks MDRD (S/P/Bld) [Vol rate/Area] ml/min/1.73sqm Invalid Interpretation Code [facility] Comment on above: Interpretive Data: GFR Population mean for , Non- Americans Ages 20-29 = 116 mL/min/1.73 sq.m. Ages 30-39 = 107 mL/min/1.73 sq.m. Ages 40-49 = 99 mL/min/1.73 sq.m. Ages 50-59 = 93 mL/min/1.73 sq.m. Ages 60-69 = 85 mL/min/1.73 sq.m. Ages 70+ = 75 mL/min/1.73 sq.m. Chronic Kidney Disease: Less than 60 mL/min/1.73 square meters End Stage Renal Disease: Less than 15 mL/min/1.73 square meters Globulin 2.0 G/dL Normal 1.5 - 3.8 G/dL [facility] Glucose [Mass/Vol] 224 mg/dL High 70 - 110 mg/dL AH ADM SS Platelets LM Ql (Bld) Normal *NA* (10/25/23 6:30 PM) Invalid Interpretation Code AH Workflow SS Polychromasia LM Ql (Bld) 1+ *NA* (10/25/23 6:30 PM) Invalid Interpretation Code AH Workflow SS Potassium [Moles/Vol] 4.2 mmol/L Normal 3.5 - 5.0 mEq/L ADM SS Protein [Mass/Vol] 4.5 G/dL Low 5.7 - 8.2 G/dL ADM SS Comment on above: Interpretive Data: * *Note - New Reference Range in effect 20 Sodium [Moles/Vol] 143 mmol/L Normal 136 - 145 mEq/L ADM SS Urea nitrogen [Mass/Vol] 18.0 mg/dL Normal 8.0 - 22.0 mg/dL ADM SS Urea nitrogen/Creatinine [Mass ratio] 22.5 ratio High 10.0 - 22.0 ratio ADM SS Albumin BCP dye [Mass/Vol] 3.4 G/dL Normal 3.2 - 4.8 G/dL ADM SS Albumin/Globulin [Mass ratio] 1.4 {ratio} Normal 0.9 - 1.6 ratio ADM SS ALP [Catalytic activity/Vol] 78 U/L Normal 38 - 126 U/L ADM SS ALT No additional P-5'-P [Catalytic activity/Vol] 68 U/L High 10 - 49 U/L ADM SS AST [Catalytic activity/Vol] 386 U/L High 8 - 34 U/L ADM SS Bilirubin [Mass/Vol] 0.40 mg/dL Normal 0.20 - 1.20 mg/dL ADM SS Comment on above: Interpretive Data: U se of this assay is not recommended for patients undergoing treatment with eltrombopag due to the potential for falsely elevated results. Globulin 2.5 G/dL Normal 1.5 - 3.8 G/dL ADM SS HbA1c (Bld) [Mass fraction] 5.6 % Normal 4.0 - 6.0 % Auto Chem SS Magnesium [Mass/Vol] 2.2 mg/dL Normal 1.6 - 2 .4 mg/dL AH ADM SS Phosphate [Mass/Vol] 3.1 mg/dL Normal 2.4 - 5 .1 mg/dL AH ADM SS Comment on above: Interpretive Data: * *Note - New Reference Range in effect 20 Platelets LM Ql (Bld) Normal *NA* (10/25/23 5:03 PM) Invalid Interpretation Code AH Workflow SS Protein [Mass/Vol] 5.9 G/dL Normal 5.7 - 8.2 G/dL ADM SS Comment on above: Interpretive Data: * *Note - New Reference Range in effect 20 RBC morphology finding Nom (Bld) See Below 5 *NA* (10/25/23 5:03 PM) Invalid Interpretation Code AH Workflow SS Comment on above: Result Comment: RBC Morphology appears Normal Troponin I.cardiac DL <= 0.01 ng/mL [Mass/Vol] ng/L High 0.00 - 34.00 ng/L ADM SS TSH Qn 0.661 mIU/mL Normal 0.550 - 4.780 mIU/mL AH ADM SS Comment on above: Interpretive Data: * *Note - New Reference Range in effect 20 LABORATORYOrdered By: Kinjal Gonzalez on 10-25-2023 RBC Product Ready RBC Ready for Pickup (10/25/23 8:14 PM) Normal BB Manual SS ABO and Rh group Nom (Bld) Blood group A Rh(D) positive Invalid Interpretation Code BB Auto SS Blood group antibody screen Ql Negative ABSC (10/25/23 6:30 PM) Normal BB Auto SS RBC Product Ready RBC Ready for Pickup (10/25/23 6:00 PM) Normal BB Manual SS LABORATORYOrdered By: Winnie Chong on 10-25-2023 Calcium.ionized (Bld) [Mass/Vol] 1.09 mmol/L Low 1.12 - 1.32 mmol/L AH Auto Chem SS Natriuretic peptide.B prohormone N-Terminal [Mass/Vol] 3954 pg/mL High 0 - 900 pg/mL AH Auto Chem SS Comment on above: Interpretive Data: N T-proBNP results of less than 300 pg/mL effectively rules out acute congestive heart failure with 99% negative predictive value. LACon 10-25-2023 Lactic Acid Lvl 1.7 mmol/L Normal 0.2-2.0 [facility] ([place]) Comment on above: Performed By: #### C AION, GFR, PBNP, ADIFF, CMP, A1C, MG, ANEU, TSH, PHOS, MORPH, CBC, TROPHS #### [place] [address] Lactic Acid Lvl 3.2 mmol/L High 0.2-2.0 [facility] ([place]) Comment on above: Order Comment: Order ed secondary to Lactic Acid result greater than or equal to 2.0 Performed By: #### C AION, GFR, PBNP, ADIFF, CMP, A1C, MG, ANEU, TSH, PHOS, MORPH, CBC, TROPHS #### [place] [address] Lactic Acid Lvl 3.2 mmol/L High 0.2-2.0 [facility] ([place]) Comment on above: Performed By: #### C AION, GFR, PBNP, ADIFF, CMP, A1C, MG, ANEU, TSH, PHOS, MORPH, CBC, TROPHS #### [place] [address] LACTIC ACIDon 10-25-2023 Lactate [Moles/Vol] 2.0 mmol/L Normal 0.4-2.0 [facility] Comment on above: Order Comment: Y Performed By: #### L A #### [facility] [address] [place] [address] LIPASEon 10-25-2023 Lipase [Catalytic activity/Vol] 46 U/L Normal 13-75 [facility] Comment on above: Performed By: #### M N, TRO, LIP #### [facility] [address] [place] [address] Laboratory studies (set)on 0 10-25-2023 Albumin [Mass/Vol] 3.9 g/dL 3.4-5.0 [facility] Albumin/Globulin [Mass ratio] 1.0 {ratio} Low 1.1-1.8 [facility] ALP [Catalytic activity/Vol] 101 U/L 45-117 [facility] ALT [Catalytic activity/Vol] 72 U/L 12-78 [facility] Anion gap [Moles/Vol] 9.2 mmol/L Low 11-23 [facility] AST [Catalytic activity/Vol] 429 U/L High 15-37 [facility] Basophils (Bld) [#/Vol] 0.3 10*3/uL High 0-0.1 [facility] Basophils/100 WBC (Bld) 1.30 % 0-2 [facility] Bilirubin [Mass/Vol] 0.4 mg/dL 0.2-1.0 [facility] Calcium [Mass/Vol] 9.4 mg/dL 8.5-10.1 [facility] Chloride [Moles/Vol] 110 mmol/L High 98-107 [facility] CO2 [Moles/Vol] 25.0 mmol/L 21-32 [facility] Creatinine [Mass/Vol] 0.90 mg/dL 0.55-1.02 [facility] Differential Total Cells Counted 100 #CELLS [facility] Eosinophils (Bld) [#/Vol] 0.0 10*3/uL 0.0-1.80 [facility] Eosinophils/100 WBC (Bld) 0.2 % 0-8 [facility] Erythrocyte distribution width (RBC) [Ratio] 14.1 % 11.0-15.5 [facility] Estimated GFR () [facility] Comment on above: THE NORMAL LEVEL OF GFR VARIES ACCORDING TO AGE, SEX, AND BODY SIZE. A GFR LEVEL OF LESS THAN 60 ML/MIN REPRESENTS LOSS OF THE ADULT LEVEL OF NORMAL KIDNEY FUNCTION. GFR/1.73 sq M.predicted among non-blacks MDRD (S/P/Bld) [Vol rate/Area] [facility] Globulin (S) [Mass/Vol] 3.7 g/dL 2.5-4.6 [facility] Glucose [Mass/Vol] 152 mg/dL High 70-100 [facility] Granulocytes (Bld) [#/Vol] 18.5 10*3/uL High 2.2-9.1 [facility] Granulocytes/100 WBC (Bld) 81.3 % High 42-80 [facility] Hematocrit (Bld) [Volume fraction] 38.9 % 37.0-47.0 [facility] Hemoglobin (Bld) [Mass/Vol] 13.2 g/dL 12.0-16.0 [facility] Immature Granulocytes [facility] Lactate [Moles/Vol] 2.0 mmol/L 0.4-2.0 [facility] Lipase [Catalytic activity/Vol] 46 U/L 13-75 [facility] Lymphocytes (Bld) [#/Vol] 2.3 10*3/uL 1.0-4.0 [facility] Lymphocytes Auto (Unsp spec) [#/Vol] 9 % Low 16-48 [facility] Lymphocytes/100 WBC (Bld) 10.0 % Low 16-48 [facility] MCH (RBC) [Entitic mass] 31.5 pg 26.0-32.0 [facility] MCHC (RBC) [Mass/Vol] 33.9 g/dL 31.0-36.0 [facility] MCV (RBC) [Entitic vol] 92.9 fL 80-97 [facility] Monocyte distribution width Auto (Bld) [Entitic vol] 18.36 0-20 [facility] Comment on above: For ED adult patient s suspected of sepsis, MDW<=20.0 does not rule out sepsis or risk of sepsis Monocytes (Bld) [#/Vol] 1.6 10*3/uL 0.1-1.7 [facility] Monocytes/100 WBC (Bld) 7.2 % 3-9 [facility] Monocytes/100 WBC (Bld) 3 % 3-9 [facility] Platelet mean volume (Bld) [Entitic vol] 7.9 fL 6.6-10.5 [facility] Platelets (Bld) [#/Vol] 357 10*3/uL 140-450 [facility] Comment on above: Delta: 197 on -1642 Platelets LM Ql (Bld) [facility] Potassium [Moles/Vol] 3.6 mmol/L 3.5-5.1 [facility] Protein [Mass/Vol] 7.6 g/dL 6.0-8.3 [facility] RBC (Bld) [#/Vol] 4.19 10*6/uL Low 4.20-5.50 [facility] RBC morphology finding Nom (Bld) [facility] Segmented neutrophils/100 WBC (Bld) 88 % High 42-80 [facility] Sodium [Moles/Vol] 140 mmol/L 136-145 [facility] Troponin High 0-53.7 [facility] Comment on above: Called at: 13:21:54 on 10/25/2023 by: Dago Farrell to:leonor reddy Troponin Reference Range: Male: 0-78.5 pg/mL (ng/L) Female: 0-53.7 pg/mL (ng/L) Note: The new high sensitivity Troponin units are in pg/mL (ng/L) Urea nitrogen [Mass/Vol] 20.0 mg/dL High 7-18 [facility] WBC (Bld) [#/Vol] 22.7 10*3/uL High 4.0-11.0 [facility] MGon 10-25-2023 Magnesium [Mass/Vol] 2.2 mg/dL Normal 1.6-2.4 [facility] ([place]) Comment on above: Performed By: #### C AION, GFR, PBNP, ADIFF, CMP, A1C, MG, ANEU, TSH, PHOS, MORPH, CBC, TROPHS #### [address] [address] PBNPon 10-25-2023 Natriuretic peptide B (Bld) [Mass/Vol] 3954 pg/mL High 0-900 [facility] ([place]) Comment on above: Result Comment: NT-p roBNP results of less than 300 pg/mL effectively rules out acute congestive heart failure with 99% negative predictive value. Performed By: #### C AION, GFR, PBNP, ADIFF, CMP, A1C, MG, ANEU, TSH, PHOS, MORPH, CBC, TROPHS #### [address] [address] PHOSon 10-25-2023 Phosphate [Mass/Vol] 3.1 mg/dL Normal 2.4-5.1 [facility] ([place]) Comment on above: Result Comment: No te - New Reference Range in effect 20 Performed By: #### C AION, GFR, PBNP, ADIFF, CMP, A1C, MG, ANEU, TSH, PHOS, MORPH, CBC, TROPHS #### [address] [address] RBC (Product)on 10-25-2023 RBC Product Ready RBC Ready for Pickup Normal [facility] ([place]) Comment on above: Performed By: #### C AION, GFR, PBNP, ADIFF, CMP, A1C, MG, ANEU, TSH, PHOS, MORPH, CBC, TROPHS #### [place] [address] RBC Product Ready RBC Ready for Pickup Normal [facility] ([place]) Comment on above: Performed By: #### C AION, GFR, PBNP, ADIFF, CMP, A1C, MG, ANEU, TSH, PHOS, MORPH, CBC, TROPHS #### [place] [address] TROPHSon 10-25-2023 Troponin I High Sensitivity >46001.00 High 0.00-34.00 [facility] ([place]) Comment on above: Performed By: #### C AION, GFR, PBNP, ADIFF, CMP, A1C, MG, ANEU, TSH, PHOS, MORPH, CBC, TROPHS #### [place] [address] TROPONINon 10-25-2023 Troponin I.cardiac [Mass/Vol] ng/mL High 0-53.7 [facility] Comment on above: Result Comment: Call ed at: 13:21:54 on 10/25/2023 by: Dago Farrell to:leonor reddy Troponin Reference Range: Male: 0-78.5 pg/mL (ng/L) Female: 0-53.7 pg/mL (ng/L) Note: The new high sensitivity Troponin units are in pg/mL (ng/L) Performed By: #### M N, TRO, LIP #### [facility] [address] [place] [address] TSHon 10-25-2023 TSH 0.661 mIU/mL Normal 0.550-4.780 [facility] ([place]) Comment on above: Result Comment: No te - New Reference Range in effect 20 Performed By: #### C AION, GFR, PBNP, ADIFF, CMP, A1C, MG, ANEU, TSH, PHOS, MORPH, CBC, TROPHS #### [facility] [address] [place] [address] XR CHEST 1 VIEWon 10-25-2023 XR CHEST 1 VIEW ORIGINAL EXAMINATION: ONE XRAY VIEW OF THE CHEST 10/25/2023 8:56 pm COMPARISON: October 25, 2023 HISTORY: ORDERING SYSTEM PROVIDED HISTORY: Reason for Exam: central line FINDINGS: CVC terminates at the SVC. No pneumothorax seen. The heart and pulmonary vessels are unremarkable. No infiltrate or pleural fluid seen. IMPRESSION: No postprocedure pneumothorax. Interpreted by: Jama Lomax MD Preliminary Report By: Jama Lomax MD Electronically signed By Jama Lomax MD Dictated Date: 10/25/2023 8:58:01 PM Prelim Date: 10/25/2023 8:58:34 PM Sign Date: 10/25/2023 8:58:34 PM Ordering Provider: ALIDA Elizabeth [facility] ([place]) Comp Metabolic Profon 2023 Albumin [Mass/Vol] 4.4 g/dL Normal 3.5-5.2 [facility] Comment on above: Performed By: #### C P, LIPR #### [address] [address] Orderly: Russ Seth MD Alkaline Phos 74 U/L Normal 35-104 [facility] Comment on above: Performed By: #### C P, LIPR #### [address] [address] Orderly: Russ Seth MD ALT [Catalytic activity/Vol] 8 U/L Normal 0-32 [facility] Comment on above: Performed By: #### C P, LIPR #### [address] [address] Orderly: Russ Seth MD Anion gap [Moles/Vol] 11 mmol/L Normal 7-16 [facility] Comment on above: Performed By: #### C P, LIPR #### [address] [place] [address] Orderly: Russ Seth MD AST [Catalytic activity/Vol] 17 U/L Normal 0-31 [facility] Comment on above: Performed By: #### C P, LIPR #### [address] [place] [address] Orderly: Russ Seth MD Bilirubin [Mass/Vol] 0.2 mg/dL Normal 0.0-1.2 [facility] Comment on above: Performed By: #### C P, LIPR #### [address] [place] [address] Orderly: Russ Seth MD Calcium [Mass/Vol] 9.0 mg/dL Normal 8.6-10.2 [facility] Comment on above: Performed By: #### C P, LIPR #### [address] [place] [address] Orderly: Russ Seth MD Chloride [Moles/Vol] 104 mmol/L Normal 98-107 [facility] Comment on above: Performed By: #### C P, LIPR #### [address] [place] [address] Orderly: Russ Seth MD CO2 [Moles/Vol] 27 mmol/L Normal 22-29 [facility] Comment on above: Performed By: #### C P, LIPR #### [address] [place] [address] Orderly: Russ Seth MD Creatinine [Mass/Vol] 1.0 mg/dL Normal 0.50-1.00 [facility] Comment on above: Performed By: #### C P, LIPR #### [place] [address] Orderly: Russ Seth MD GFR/1.73 sq M.predicted among non-blacks MDRD (S/P/Bld) [Vol rate/Area] mL/min/{1.73_m2} Normal >60 [facility] Comment on above: Result Comment: These results are not intended for use in patients <18 years of age. eGFR results are calculated without a race factor using the 2020 CKD-EPI equation. Careful clinical correlation is recommended, particularly when comparing to results calculated using previous equations. The CKD-EPI equation is less accurate in patients with extremes of muscle mass, extra-renal metabolism of creatine, excessive creatine ingestion, or following therapy that affects renal tubular secretion. Performed By: #### C P, LIPR #### [address] [address] Orderly: Russ Seth MD Glucose [Mass/Vol] 97 mg/dL Normal 74-99 [facility] Comment on above: Performed By: #### C P, LIPR #### [address] [address] Orderly: Russ Seth MD Potassium [Moles/Vol] 4.9 mmol/L Normal 3.5-5.0 [facility] Comment on above: Performed By: #### C P, LIPR #### [address] [address] Orderly: Russ Seth MD Protein [Mass/Vol] 6.7 g/dL Normal 6.4-8.3 [facility] Comment on above: Performed By: #### C P, LIPR #### [address] [address] Orderly: Russ Seth MD Sodium [Moles/Vol] 142 mmol/L Normal 132-146 [facility] Comment on above: Performed By: #### C P, LIPR #### [address] [place] [address] Orderly: Russ Seht MD Urea nitrogen [Mass/Vol] 14 mg/dL Normal 6-20 [facility] Comment on above: Performed By: #### C P, LIPR #### [address] [place] [address] Orderly: Russ Seth MD Lipid Profileon 09-18-2023 Cholesterol [Mass/Vol] 193 mg/dL Normal <200 [facility] Comment on above: Performed By: #### C P, LIPR #### [address] [place] [address] Orderly: Russ Seth MD Cholesterol in HDL [Mass/Vol] 47 mg/dL Normal >40 [facility] Comment on above: Performed By: #### C P, LIPR #### [address] [place] [address] Orderly: Russ Seth MD Cholesterol in LDL [Mass/Vol] 129 mg/dL High <100 [facility] Comment on above: Performed By: #### C P, LIPR #### [address] [place] [address] Orderly: Russ Seth MD Cholesterol in VLDL [Mass/Vol] 17 mg/dL Normal [facility] Comment on above: Result Comment: No n ormal range established. Performed By: #### C P, LIPR #### [address] [place] [address] Orderly: Russ Seth MD Triglyceride [Mass/Vol] 85 mg/dL Normal <150 [facility] Comment on above: Performed By: #### C P, LIPR #### [place] [address] Orderly: Russ Seth MD CBC with Diffon 03-18-2023 Abs. Basophil 0.06 k/uL Normal 0.00-0.20 [facility] Comment on above: Performed By: #### C P, LIPR, MG, CBCWD #### [place] [address] Orderly: Russ Seth MD Abs.Imm.Granulocyte <0.03 Normal 0.00-0.58 [facility] Comment on above: Performed By: #### C P, LIPR, MG, CBCWD #### [place] [address] Orderly: Russ Seth MD Abs.Neutrophil (Seg) 6.25 k/uL Normal 1.80-7.30 [facility] Comment on above: Performed By: #### C P, LIPR, MG, CBCWD #### [place] [address] Orderly: Russ Seth MD Basophils/100 WBC (Bld) 1 % Normal 0.0-2.0 [facility] Comment on above: Performed By: #### C P, LIPR, MG, CBCWD #### [place] [address] Orderly: Russ Seth MD Eosinophils (Bld) [#/Vol] 0.34 10*3/uL Normal 0.05-0.50 [facility] Comment on above: Performed By: #### C P, LIPR, MG, CBCWD #### [place] [address] Orderly: Russ Seth MD Eosinophils/100 WBC (Bld) 4 % Normal 0-6 [facility] Comment on above: Performed By: #### C P, LIPR, MG, CBCWD #### [address] [address] Orderly: Russ Seth MD Erythrocyte distribution width (RBC) [Ratio] 13.1 % Normal 11.5-15.0 [facility] Comment on above: Performed By: #### C P, LIPR, MG, CBCWD #### [place] [address] Orderly: Russ Seth MD Hematocrit (Bld) [Volume fraction] 39.8 % Normal 34.0-48.0 [facility] Comment on above: Performed By: #### C P, LIPR, MG, CBCWD #### [place] [address] Orderly: Russ Seth MD Hemoglobin (Bld) [Mass/Vol] 12.8 g/dL Normal 11.5-15.5 [facility] Comment on above: Performed By: #### C P, LIPR, MG, CBCWD #### [place] [address] Orderly: Russ Seth MD Immature granulocytes/100 WBC (Bld) 0 % Normal 0.0-5.0 [facility] Comment on above: Performed By: #### C P, LIPR, MG, CBCWD #### [place] [address] Orderly: Russ Seth MD Lymphocytes (Bld) [#/Vol] 1.92 10*3/uL Normal 1.50-4.00 [facility] Comment on above: Performed By: #### C P, LIPR, MG, CBCWD #### [address] [place] [address] Orderly: Russ Seth MD Lymphocytes/100 WBC (Bld) 21 % Normal 20.0-42.0 [facility] Comment on above: Performed By: #### C P, LIPR, MG, CBCWD #### [address] [place] [address] Orderly: Russ Seth MD MCH (RBC) [Entitic mass] 32.3 pg Normal 26.0-35.0 [facility] Comment on above: Performed By: #### C P, LIPR, MG, CBCWD #### [place] [address] Orderly: Russ Seth MD MCHC (RBC) [Mass/Vol] 32.2 g/dL Normal 32.0-34.5 [facility] Comment on above: Performed By: #### C P, LIPR, MG, CBCWD #### [place] [address] Orderly: Russ Seth MD MCV (RBC) [Entitic vol] 100.5 fL High 80.0-99.9 [facility] Comment on above: Performed By: #### C P, LIPR, MG, CBCWD #### [address] [place] [address] Orderly: Russ Seth MD Monocytes (Bld) [#/Vol] 0.49 10*3/uL Normal 0.10-0.95 [facility] Comment on above: Performed By: #### C P, LIPR, MG, CBCWD #### [place] [id number] Orderly: Russ Seth MD Monocytes/100 WBC (Bld) 5 % Normal 2.0-12.0 [facility] Comment on above: Performed By: #### C P, LIPR, MG, CBCWD #### [address] [place] [address] Orderly: Russ Seth MD Neutrophil (Seg) 69 % Normal 43.0-80.0 [facility] Comment on above: Performed By: #### C P, LIPR, MG, CBCWD #### [address] [place] [address] Orderly: Russ Seth MD Platelet mean volume (Bld) [Entitic vol] 10.6 fL Normal 7.0-12.0 [facility] Comment on above: Performed By: #### C P, LIPR, MG, CBCWD #### [address] [place] [address] Orderly: Russ Seth MD Platelets (Bld) [#/Vol] 179 10*3/uL Normal 130-450 [facility] Comment on above: Performed By: #### C P, LIPR, MG, CBCWD #### [address] [place] [address] Orderly: Russ Seth MD RBC (Bld) [#/Vol] 3.96 10*6/uL Normal 3.50-5.50 [facility] Comment on above: Performed By: #### C P, LIPR, MG, CBCWD #### [address] [place] [address] Orderly: Russ Seht MD WBC (Bld) [#/Vol] 9.1 10*3/uL Normal 4.5-11.5 [facility] Comment on above: Performed By: #### C P, LIPR, MG, CBCWD #### [address] [place] [address] Orderly: Russ Seth MD Comp Metabolic Profon 2022 Albumin [Mass/Vol] 4.5 g/dL Normal 3.5-5.2 [facility] Comment on above: Performed By: #### C P, LIPR, MG, CBCWD #### [address] [place] [address] Orderly: Russ Seth MD Alkaline Phos 69 U/L Normal 35-104 [facility] Comment on above: Performed By: #### C P, LIPR, MG, CBCWD #### [address] [place] [address] Orderly: Russ Seth MD ALT [Catalytic activity/Vol] 10 U/L Normal 0-32 [facility] Comment on above: Performed By: #### C P, LIPR, MG, CBCWD #### [address] [place] [address] Orderly: Russ Seth MD Anion gap [Moles/Vol] 12 mmol/L Normal 7-16 [facility] Comment on above: Performed By: #### C P, LIPR, MG, CBCWD #### [address] [place] [address] Orderly: Russ Seth MD AST [Catalytic activity/Vol] 19 U/L Normal 0-31 [facility] Comment on above: Performed By: #### C P, LIPR, MG, CBCWD #### [address] [place] [address] Orderly: Russ Seth MD Bilirubin [Mass/Vol] 0.4 mg/dL Normal 0.0-1.2 [facility] Comment on above: Performed By: #### C P, LIPR, MG, CBCWD #### [address] [address] Orderly: Russ Seth MD Calcium [Mass/Vol] 8.9 mg/dL Normal 8.6-10.2 [facility] Comment on above: Performed By: #### C P, LIPR, MG, CBCWD #### [place] [address] Orderly: Russ Seth MD Chloride [Moles/Vol] 107 mmol/L Normal 98-107 [facility] Comment on above: Performed By: #### C P, LIPR, MG, CBCWD #### [place] [address] Orderly: Russ Seth MD CO2 [Moles/Vol] 24 mmol/L Normal 22-29 [facility] Comment on above: Performed By: #### C P, LIPR, MG, CBCWD #### [place] [address] Orderly: Russ Seth MD Creatinine [Mass/Vol] 0.9 mg/dL Normal 0.50-1.00 [facility] Comment on above: Performed By: #### C P, LIPR, MG, CBCWD #### [place] [address] Orderly: Russ Seth MD GFR/1.73 sq M.predicted among non-blacks MDRD (S/P/Bld) [Vol rate/Area] mL/min/{1.73_m2} Normal >60 [facility] Comment on above: Result Comment: These results are not intended for use in patients <18 years of age. eGFR results are calculated without a race factor using the 2020 CKD-EPI equation. Careful clinical correlation is recommended, particularly when comparing to results calculated using previous equations. The CKD-EPI equation is less accurate in patients with extremes of muscle mass, extra-renal metabolism of creatine, excessive creatine ingestion, or following therapy that affects renal tubular secretion. Performed By: #### C P, LIPR, MG, CBCWD #### [address] [place] [address] Orderly: Russ Seth MD Glucose [Mass/Vol] 103 mg/dL High 74-99 [facility] Comment on above: Performed By: #### C P, LIPR, MG, CBCWD #### [address] [place] [address] Orderly: Russ Seth MD Potassium [Moles/Vol] 4.1 mmol/L Normal 3.5-5.0 [facility] Comment on above: Performed By: #### C P, LIPR, MG, CBCWD #### [address] [place] [address] Orderly: Russ Seth MD Protein [Mass/Vol] 6.7 g/dL Normal 6.4-8.3 [facility] Comment on above: Performed By: #### C P, LIPR, MG, CBCWD #### [address] [place] [address] Orderly: Russ Seth MD Sodium [Moles/Vol] 143 mmol/L Normal 132-146 [facility] Comment on above: Performed By: #### C P, LIPR, MG, CBCWD #### [address] [place] [address] Orderly: Russ Seth MD Urea nitrogen [Mass/Vol] 16 mg/dL Normal 6-20 [facility] Comment on above: Performed By: #### C P, LIPR, MG, CBCWD #### [address] [address] Orderly: Russ Seth MD Lipid Profileon 03-18-2023 Cholesterol [Mass/Vol] 190 mg/dL Normal <200 [facility] Comment on above: Performed By: #### C P, LIPR, MG, CBCWD #### [address] [address] Orderly: Russ Seth MD Cholesterol in HDL [Mass/Vol] 50 mg/dL Normal >40 [facility] Comment on above: Performed By: #### C P, LIPR, MG, CBCWD #### [address] [address] Orderly: Russ Seth MD Cholesterol in LDL [Mass/Vol] 120 mg/dL High <100 [facility] Comment on above: Performed By: #### C P, LIPR, MG, CBCWD #### [address] [address] Orderly: Russ Seth MD Cholesterol in VLDL [Mass/Vol] 20 mg/dL Normal [facility] Comment on above: Result Comment: No n ormal range established. Performed By: #### C P, LIPR, MG, CBCWD #### [address] [address] Orderly: Russ Seth MD Triglyceride [Mass/Vol] 98 mg/dL Normal <150 [facility] Comment on above: Performed By: #### C P, LIPR, MG, CBCWD #### [place] [id number] [facility]. [place], [place] [id number] Orderly: Russ Seth MD Magnesiumon 03-18-2023 Magnesium [Mass/Vol] 2.2 mg/dL Normal 1.6-2.6 [facility] Comment on above: Performed By: #### C P, LIPR, MG, CBCWD #### [facility] [address] [facility]. [place], [place] [id number] Orderly: Russ Seth MD XR LUMBAR SPINE (2-3 VIEWS)o n 01-22-2023 XR LUMBAR SPINE (2-3 VIEWS) EXAMINATION: 3 XRAY VIEWS OF THE LUMBAR SPINE 01/22/2023 9:19 am COMPARISON: None. HISTORY: ORDERING SYSTEM PROVIDED HISTORY: Strain of lumbar region, initial encounter TECHNOLOGIST PROVIDED HISTORY: Reason for exam:->lumbar spine pain with right sided radiculopathy FINDINGS: Vertebral body height and alignment are normal. There is no significant disc space narrowing. There does appear to be some vacuum phenomena at L5-S1. IMPRESSION: Some degenerative changes at L5-S1 but without disc space narrowing Interpreted by: Jeremiah Dumont MD Signed by: Jeremiah Dumont MD 01/22/23 Final result Normal [facility] Comment on above: Order Comment: Reaso n for exam:->lumbar spine pain with right sided radiculopathy Miscellaneous [place] 12-24 Result Normal [facility] ([place]) Comment on above: Order Comment: SEE COMMENTS Result Comment: VIEW IN THE SCANNED REPORTS SCREEN OF THE EMR OR SEE REFERENCE LAB REPORT. Performed By: #### M ISB #### [facility] [address] [place] [address] IgG, Subclasses (1-4)on 12-23 IgG [Mass/Vol] 579 mg/dL Abnormal 586-1602 [facility] ([place]) Comment on above: Performed By: #### I GGSUBCLASS #### [facility] [address] IgG subclass 1 (S) [Mass/Vol] 282 mg/dL Normal 248-810 [facility] ([place] Comment on above: Performed By: #### I GGSUBCLASS #### [facility] - [address] [address] IgG subclass 2 (S) [Mass/Vol] 193 mg/dL Normal 130-555 [facility] [place] Comment on above: Performed By: #### I GGSUBCLASS #### [facility] - [address] [address] IgG subclass 3 (S) [Mass/Vol] 25 mg/dL Normal 15-102 [facility] ([place] Comment on above: Performed By: #### I GGSUBCLASS #### [facility] - [address] [address] IgG subclass 4 (S) [Mass/Vol] 17 mg/dL Normal 2-96 [facility] ([place] Comment on above: Result Comment: Perf ormed at: CB - [facility] [address] [id number] Orderly: Alfie Membreno PhD, Phone: [phone] Performed By: #### I GGSUBCLASS #### [facility] - [address] [address] Miscellaneous [place]atteryon 11-23 Result See REF Lab Report Normal [facility] ([place] Comment on above: Order Comment: PNEUM OCCAL SEROTYPE [id number] Performed By: #### M ISB #### [facility] [address] [place] [address] Area 5 Allergenson A. alternata IgE Qn (S) <0.10 Normal Class 0 [facility] ([place]) Comment on above: Performed By: #### A LL AREA 5 #### [facility] - [place] [id number] [place] [address] A. fumigatus IgE Qn (S) <0.10 Normal Class 0 [facility] [place] Comment on above: Performed By: #### A LL AREA 5 #### [facility] - [place] [address] [place] [address] Georgian house dust mite IgE Qn (S) 4.46 kU/L Abnormal Class IV [facility] ([place] Comment on above: Performed By: #### A LL AREA 5 #### [facility] - [place] [address] [place] [address] Bermuda grass IgE Qn (S) <0.10 Normal Class 0 [facility] [place] Comment on above: Performed By: #### A LL AREA 5 #### [facility] - [place] [address] [place] [address] Boxelder IgE Qn (S) <0.10 Normal Class 0 [facility] [place] Comment on above: Performed By: #### A LL AREA 5 #### [facility] - [place] [address] [place] [address] C. herbarum IgE Qn (S) <0.10 Normal Class 0 [facility] [place] Comment on above: Performed By: #### A LL AREA 5 #### [facility] [address] [place] [address] Cat dander IgE Qn (S) <0.10 Normal Class 0 [facility] ([place] Comment on above: Performed By: #### A LL AREA 5 #### [facility] [address] [place] [address] Class Description Comment Normal . [facility] ([place] Comment on above: Result Comment: Annette jorgensen of Specific IgE Class Description of Class ----- < 0.10 0 Negative 0.10 - 0.31 0/I Equivocal/Low 0.32 - 0.55 I Low 0.56 - 1.40 II Moderate 1.41 - 3.90 III High 3.91 - 19.00 IV Very High 19.01 - 100.00 V Very High >100.00 Very High Performed By: #### A LL AREA 5 #### [facility] - [place] [address] [place] [address] Cockroach IgE Qn (S) <0.10 Normal Class 0 [facility] [place] Comment on above: Performed By: #### A LL AREA 5 #### [facility] - [place] [address] [place] [address] Common Pigweed IgE Qn (S) <0.10 Normal Class 0 [facility] [place] Comment on above: Performed By: #### A LL AREA 5 #### [facility] - [place] [address] [place] [address] Common Ragweed IgE Qn (S) 0.16 kU/L Abnormal Class 0/I [facility] [place] Comment on above: Performed By: #### A LL AREA 5 #### [facility] - [place] [address] [place] [address] Maricopa IgE Qn (S) <0.10 Normal Class 0 [facility] [place] Comment on above: Performed By: #### A LL AREA 5 #### [facility] - [place] [address] [place] [address] Dog dander IgE Qn (S) <0.10 Normal Class 0 [facility] [place] Comment on above: Performed By: #### A LL AREA 5 #### [facility] - [place] [address] [place] [address] house dust mite IgE Qn (S) 2.61 kU/L Abnormal Class III [facility] [place] Comment on above: Performed By: #### A LL AREA 5 #### [facility] - [place] [address] [place] [address] IgE Qn 14 IU/mL Normal 6-495 [facility] [place] Comment on above: Performed By: #### A LL AREA 5 #### [facility] - [place] [address] [place] [address] Maple Snowflake [place], IgE <0.10 Normal Class 0 [facility] [place] Comment on above: Performed By: #### A LL AREA 5 #### [facility] - [place] [address] [place] [address] Mountain Juniper IgE Qn (S) <0.10 Normal Class 0 [facility] [place] Comment on above: Performed By: #### A LL AREA 5 #### [facility] - [place] [address] [place] [address] Mouse urine proteins IgE Qn (S) <0.10 Normal Class 0 [facility] [place] Comment on above: Result Comment: Perf ormed at: BN - [facility] [address] [id number] Orderly: Josie Kan MD, Phone: [phone] Performed By: #### A LL AREA 5 #### [facility] - [place] [address] [place] [address] P. notatum IgE Qn (S) <0.10 Normal Class 0 [facility] [place] Comment on above: Performed By: #### A LL AREA 5 #### [facility] - [place] [address] [place] [address] Pecan or Minford Nut IgE Qn (S) <0.10 Normal Class 0 [facility] [place] Comment on above: Performed By: #### A LL AREA 5 #### [facility] - [place] [address] [place] [address] Saltwort IgE Qn (S) <0.10 Normal Class 0 [facility] [place] Comment on above: Performed By: #### A LL AREA 5 #### [facility] - [place] [address] [place] [address] Sheep Ennis IgE Qn (S) <0.10 Normal Class 0 [facility] [place] Comment on above: Performed By: #### A LL AREA 5 #### [facility] - [place] [address] [place] [address] Silver Birch IgE Qn (S) <0.10 Normal Class 0 [facility] [place] Comment on above: Performed By: #### A LL AREA 5 #### [facility] - [place] [address] [place] [address] Ubaldo IgE Qn (S) <0.10 Normal Class 0 [facility] [place] Comment on above: Performed By: #### A LL AREA 5 #### [facility] - [place] [address] [place] [address] [place] IgE Qn (S) <0.10 Normal Class 0 [facility] [place] Comment on above: Performed By: #### A LL AREA 5 #### [facility] - [place] [address] [place] [address] White Peng IgE Qn (S) <0.10 Normal Class 0 [facility] [place] Comment on above: Performed By: #### A LL AREA 5 #### [facility] - [place] [address] [place] [address] White Elm IgE Qn (S) <0.10 Normal Class 0 [facility] [place] Comment on above: Performed By: #### A LL AREA 5 #### [facility] - [place] [address] [place] [address] White mulberry IgE Qn (S) <0.10 Normal Class 0 [facility] [place] Comment on above: Performed By: #### A LL AREA 5 #### [facility] - [place] [address] [place] [address] Newberg IgE Qn (S) <0.10 Normal Class 0 [facility] [place] Comment on above: Performed By: #### A LL AREA 5 #### [facility] - [place] [address] [place] [address] IgA, Subclasses (1-2)on IgA subclass 1 (S) [Mass/Vol] 209.1 mg/dL Normal 73.2-301.2 [facility] [place] Comment on above: Performed By: #### I GASUBCL #### [facility] - [place] [address] [place] [address] IgA subclass 2 (S) [Mass/Vol] 20.1 mg/dL Normal 13.4-97.9 [facility] [place] Comment on above: Result Comment: Perf ormed at: - [address] [id number] Orderly: Josie Kan MD, Phone: [phone] Performed By: #### I GASUBCL #### [facility] - [address] [address] IgG, Subclasses (1-4)on IgG [Mass/Vol] 561 mg/dL Abnormal 586-1602 [facility] [place] Comment on above: Performed By: #### I GGSUBCLASS #### [facility] [address] [address] IgG subclass 1 (S) [Mass/Vol] 280 mg/dL Normal 248-810 [facility] [place] Comment on above: Performed By: #### I GGSUBCLASS #### [facility] - [address] [address] IgG subclass 2 (S) [Mass/Vol] 153 mg/dL Normal 130-555 [facility] [place] Comment on above: Performed By: #### I GGSUBCLASS #### [facility] [address] [address] IgG subclass 3 (S) [Mass/Vol] 28 mg/dL Normal 15-102 [facility] [place] Comment on above: Performed By: #### I GGSUBCLASS #### [facility] [address] [address] IgG subclass 4 (S) [Mass/Vol] 16 mg/dL Normal 2-96 [facility] [place] Comment on above: Result Comment: Perf ormed at: - [facility] [id number] Orderly: Alfie Membreno PhD, Phone: [phone] Performed By: #### I GGSUBCLASS #### [address] [address] IgM SerPl-mCncon 11-28-2020 IgM [Mass/Vol] 127 mg/dL Normal 26-217 [facility] [place] Comment on above: Result Comment: Perf ormed at: CB - [facility] [address] [id number] Orderly: Alfie Membreno PhD, Phone: [phone] Performed By: #### 2 472-9 #### [facility] - [address] [address] CBC W Auto Differential pane l (Bld)on 11-27-2020 Basophils (Bld) [#/Vol] 0.1 10*3/uL Normal 0.00-0.20 [facility] [place] Comment on above: Performed By: #### 4 537-7, 44788-0 #### [address] [address] Basophils/100 WBC (Bld) 1.1 % Normal 0.0-1.5 [facility] [place] Comment on above: Performed By: #### 4 537-7, 59070-1 #### [address] [address] Eosinophils (Bld) [#/Vol] 0.3 10*3/uL Normal 0.00-0.33 [facility] [place] Comment on above: Performed By: #### 4 537-7, 68292-0 #### [address] [address] Eosinophils/100 WBC (Bld) 5.0 % High 0.0-3.0 [facility] [place] Comment on above: Performed By: #### 4 537-7, 75977-4 #### [address] [address] Erythrocyte distribution width (RBC) [Ratio] 12.5 % Normal 10.9-14.3 [facility] [place] Comment on above: Performed By: #### 4 537-7, 25753-5 #### [address] [address] Hematocrit (Bld) [Volume fraction] 36.9 % Normal 36.0-44.0 [facility] [place] Comment on above: Performed By: #### 4 537-7, 23605-3 #### [address] [address] Hemoglobin (Bld) [Mass/Vol] 12.8 g/dL Normal 12.0-15.0 [facility] [place] Comment on above: Performed By: #### 4 537-7, 17964-8 #### [address] [address] Lymphocytes Auto (Unsp spec) [#/Vol] 2.0 10*3/uL Normal 1.10-4.80 [facility] [place] Comment on above: Performed By: #### 4 537-7, 76382-9 #### [address] [address] Lymphocytes/100 WBC (Bld) 37.1 % Normal 24.0-44.0 [facility] [place] Comment on above: Performed By: #### 4 537-7, 95818-2 #### [address] [address] MCH (RBC) [Entitic mass] 32.3 pg Normal 28.0-34.0 [facility] [place] Comment on above: Performed By: #### 4 537-7, 90031-3 #### [address] [address] MCHC (RBC) [Mass/Vol] 34.8 g/dL Normal 33.0-37.0 [facility] [place] Comment on above: Performed By: #### 4 537-7, 39101-5 #### [address] [place] [address] MCV (RBC) [Entitic vol] 92.9 fL Normal 80.0-100.0 [facility] [place] Comment on above: Performed By: #### 4 537-7, 82805-1 #### [address] [address] Monocytes (Bld) [#/Vol] 0.3 10*3/uL Normal 0.20-0.70 [facility] [place] Comment on above: Performed By: #### 4 537-7, 14349-6 #### [address] [address] Monocytes/100 WBC (Bld) 6.3 % Normal 3.4-9.0 [facility] [place] Comment on above: Performed By: #### 4 537-7, 89788-3 #### [address] [address] Neutrophils (Bld) [#/Vol] 2.8 10*3/uL Normal 1.83-8.70 [facility] [place] Comment on above: Performed By: #### 4 537-7, 32788-9 #### [address] [address] Neutrophils/100 WBC (Bld) 50.5 % Normal 40.0-74.0 [facility] [place] Comment on above: Performed By: #### 4 537-7, 95340-9 #### [address] [address] Platelet mean volume (Bld) [Entitic vol] 8.1 fL Normal 7.4-10.4 [facility] [place] Comment on above: Performed By: #### 4 537-7, 51241-7 #### [address] [address] Platelets (Bld) [#/Vol] 178 10*3/uL Normal 150-450 [facility] [place] Comment on above: Performed By: #### 4 537-7, 67984-4 #### [facility] [address] [place] [address] RBC (Bld) [#/Vol] 3.97 10*6/uL Low 4.00-4.90 [facility] [place] Comment on above: Performed By: #### 4 537-7, 34737-5 #### [facility] [address] [place] [address] WBC (Bld) [#/Vol] 5.5 10*3/uL Normal 4.5-11.0 [facility] [place] Comment on above: Performed By: #### 4 537-7, 21861-2 #### [facility] [address] [place] [address] ESR Westergren method (Bld) [Velocity]on 11-27-2020 ESR (Bld) [Velocity] 9 mm/h Normal 0-30 [facility] [place] Comment on above: Performed By: #### 4 537-7, 30390-3 #### [facility] [address] [place] [address] Sedimentation Rateon 020 Sedimentation Rate 7 mm/Hr Normal 0-20 [facility] Comprehensive Metabolic Pane werner 10-11-2019 Albumin [Mass/Vol] 4.8 g/dL Normal 3.5-5.2 [facility] ALP [Catalytic activity/Vol] 70 U/L Normal 35-104 [facility] ALT [Catalytic activity/Vol] 35 U/L High 0-32 [facility] Anion gap [Moles/Vol] 12 mmol/L Normal 7-16 [facility] AST [Catalytic activity/Vol] 25 U/L Normal 0-31 [facility] Bilirubin [Mass/Vol] 0.2 mg/dL Normal 0.0-1.2 [facility] Calcium [Mass/Vol] 10.2 mg/dL Normal 8.6-10.2 [facility] Chloride [Moles/Vol] 103 mmol/L Normal 98-107 [facility] CO2 [Moles/Vol] 26 mmol/L Normal 22-29 [facility] Creatinine [Mass/Vol] 0.8 mg/dL Normal 0.5-1.0 [facility] GFR/1.73 sq M predicted among blacks MDRD (S/P/Bld) [Vol rate/Area] mL/min/{1.73_m2} Normal [facility] GFR/1.73 sq M predicted among non-blacks MDRD (S/P/Bld) [Vol rate/Area] mL/min/{1.73_m2} Normal >=60 [facility] Comment on above: Result Comment: Equipment Cleaner rudy Kidney Disease: less than 60 ml/min/1.73 sq.m. Kidney Failure: less than 15 ml/min/1.73 sq.m. Results valid for patients 18 years and older. Glucose [Mass/Vol] 94 mg/dL Normal 74-99 [facility] Potassium [Moles/Vol] 4.6 mmol/L Normal 3.5-5.0 [facility] Protein [Mass/Vol] 7.4 g/dL Normal 6.4-8.3 [facility] Sodium [Moles/Vol] 141 mmol/L Normal 132-146 [facility] Urea nitrogen [Mass/Vol] 16 mg/dL Normal 6-20 [facility] Albumin [Mass/Vol] 4.8 g/dL 3.5 - 5.2 g/dL [place] ALP [Catalytic activity/Vol] 70 U/L 35 - 104 U/L [place] ALT [Catalytic activity/Vol] 35 U/L High 0 - 32 U/[place] Anion gap [Moles/Vol] 12 mmol/L 7 - 16 mmol/L [place] AST [Catalytic activity/Vol] 25 U/L 0 - 31 U/L [place] Bilirubin Ql (U) 0.2 mg/dL 0 - 1.2 mg/dL [place] Calcium [Mass/Vol] 10.2 mg/dL 8.6 - 10. 2 mg/dL [place] Chloride [Moles/Vol] 103 mmol/L 98 - 10 7 mmol/L [place] CO2 [Moles/Vol] 26 mmol/L 22 - 29 mmol/L [place] Creatinine [Mass/Vol] 0.8 mg/dL 0.5 - 1 mg/dL [place] GFR >60 [place] GFR Non- >60 >=60 mL/min/1.73 [place] Comment on above: Chronic Kidney Disea se: less than 60 ml/min/1.73 sq.m. Kidney Failure: less than 15 ml/min/1.73 sq.m. Results valid for patients 18 years and older. Glucose [Mass/Vol] 94 mg/dL 74 - 99 mg/dL [place] Potassium [Moles/Vol] 4.6 mmol/L 3.5 - 5 mmol/L [place] Protein [Mass/Vol] 7.4 g/dL 6.4 - 8.3 g/dL [place] Sodium [Moles/Vol] 141 mmol/L 132 - 146 mmol/L [place] Urea nitrogen [Mass/Vol] 16 mg/dL 6 - 20 mg/dL [place] Lipid Panelon 10-11-2019 Cholesterol [Mass/Vol] 198 mg/dL Normal 0-199 [facility] Cholesterol in HDL [Mass/Vol] 61 mg/dL Normal >40 [facility] Cholesterol in LDL [Mass/Vol] 115 mg/dL High 0-99 [facility] Triglyceride [Mass/Vol] 112 mg/dL Normal 0-149 [facility] VLDL Cholesterol (Calculated) 22 mg/dL Normal [facility] Cholesterol [Mass/Vol] 198 mg/dL 0 - 1 99 mg/dL [place] Cholesterol in HDL [Mass/Vol] 61 mg/dL >40 [place] Cholesterol in LDL [Mass/Vol] 115 mg/dL High 0 - 99 mg/dL [place] Triglyceride [Mass/Vol] 112 mg/dL 0 - 149 mg/dL [place] VLDL Cholesterol Calculated 22 mg/dL [place] Otheron 10-11-2019 Interpretation and review of laboratory results Abnormal [place] Sedimentation Rateon 020 Sed Rate 7 [place] XR FOOT RIGHT (MIN 3 VIEWS)o n 05-13-2019 XR FOOT RIGHT (MIN 3 VIEWS) XRAY INTERPREATION Indication: PAIN Examination: 3 VIEWS FOOT Narrative: The implant is intact it appears that has not moved there is plantarly though where the stem of the implant is that shows a small possible osteophyte that is formed or lipping of the proximal phalanx Interpretation: Surgical correction Interpreted by: Thu Mosley DPM Signed by: Thu Mosley DPM 05/13/19 Final result Normal [facility] CBC WITH DIFFon 07-08-2016 ABSOLUTE BASO 0.10 K/UL Normal 0.00-0.20 [facility] ABSOLUTE EOS 0.30 K/UL Normal 0-0.33 [facility] ABSOLUTE LYMPHOCYTE 2.60 K/UL Normal 1.1-4.8 [facility] ABSOLUTE MONOCYTE 0.40 K/UL Normal 0.2-0.7 [facility] ABSOLUTE NEUTROPHIL 4.20 K/UL Normal 1.83-8.70 [facility] Basophils Auto #/vol (Bld) 1.0 % Normal 0.0-1.5 [facility] DIFF TYPE AUTO Normal [facility] Eosinophils/100 leukocytes 3.4 % Abnormal 0.0-3.0 [facility] Erythrocyte distribution width Auto Ratio (RBC) 12.5 % Normal 10.9-14.3 [facility] Erythrocytes (RBC) 4.32 M/UL Normal 4.00-4.90 [facility] Hematocrit (HCT) 39.3 % Normal 37.0-47.0 [facility] Hemoglobin mass conc (Bld) 13.5 g/dL Normal 12.0-15.0 [facility] Lymphocytes/100 leukocytes 34.8 % Normal 24-44 [facility] MCH 31.1 pg Normal 28.0-34.0 [facility] MCHC mass conc (RBC) 34.2 MG/DL Normal 33.0-37.0 [facility] MCV 90.9 fL Normal 80-100 [facility] Monocytes/100 leukocytes 5.1 % Normal 3.4-9.0 [facility] NEUTROPHIL 55.7 % Normal 40.0-74.0 [facility] Platelets 195 10*3/uL Normal 150-450 [facility] WBC (Leukocytes) 7.5 10*3/uL Normal 4.5-11.0 [facility] CSF CELL COUNT Aon 6 CSF COMMENT 13cc CLEAR COLORLESS CSF Normal [facility] CSF OTHER PENDING Normal [facility] CSF RBC 1150 H /UL Abnormal 0 [facility] CSF SEG% PENDING % Normal [facility] Lymphocytes/100 leukocytes PENDING % Normal [facility] Monocytes/100 leukocytes PENDING % Normal [facility] WBC (Leukocytes) 0 10*3/uL Normal 0-5 [facility] CSF GLUCOSEon 07-04-2016 CSF GLUCOSE 59 MG/DL Normal 40-70 [facility] CSF TOTAL PROTEIon 6 CSF TOTAL PROTEIN 43 MG/DL Normal 15-45 [facility] LUMBAR PUNCTUREon 07-04-2016 LUMBAR PUNCTURE FLUORO GUIDANCE CPT [facility] IM Normal [facility] MRI BRAIN, NO COon 6 MRI BRAIN NO CONTRAST CPT 53739 [facility] IM Normal [facility] TSHon 06-11-2016 Thyroid stimulating hormone (TSH) 0.78 UIU/ML Normal 0.34-5.60 [facility] VITAMIN B12 WITHon 6 Cobalamins (Vitamin B12) 1227 pg/mL Abnormal 180-914 [facility] FOLIC ACID 10.7 ng/mL Normal >5.9 [facility] Vital Signs Date Time Vital Sign Value Performing Clinician Facility 02-10-2025 12:27-0400 Body height 165.[address] Bonifacio Bell MD Work Phone: [facility] 02-10-2025 12:27-0400 Body mass index (BMI) [Ratio] 22.1 kg/m2 Dr. Bonifacio Bell MD Work Phone: [facility] 02-10-2025 12:27-0400 Body temperature 96.4 [degF] Dr. Bonifacio Bell MD Work Phone: [facility] 02-10-2025 12:27-0400 Body weight 60.[address] Bonifacio Bell MD Work Phone: [facility] 02-10-2025 12:27-0400 Diastolic blood pressure 64 mm[Hg] Dr. Bonifacio Bell MD Work Phone: [facility] 02-10-2025 12:27-0400 Heart rate 78 /min Dr. Bonifacio Bell MD Work Phone: [facility] 02-10-2025 12:27-0400 Respiratory rate 16 /min Dr. Bonifacio Bell MD Work Phone: [facility] 02-10-2025 12:27-0400 SaO2% (BldA) [Mass fraction] 98 % Dr. Bonifacio Bell MD Work Phone: [facility] 02-10-2025 12:27-0400 Systolic blood pressure 108 mm[Hg] Dr. Bonifacio Bell MD Work Phone: [facility] 01-20-2025 15:25-0400 Body mass index (BMI) [Ratio] 22.38 kg/m2 Holden Lindsey SENIOR DESIGNER/ART DIRECTOR.DIRECTOR PRODUCT Work Phone: [facility] 01-20-2025 15:25-0400 Body temperature 98.1 [degF] Holden Lindsey SENIOR DESIGNER/ART DIRECTOR.DIRECTOR PRODUCT Work Phone: [facility] 01-20-2025 15:25-0400 Body weight 61 kg Holden Lindsey SENIOR DESIGNER/ART DIRECTOR.DIRECTOR PRODUCT Work Phone: [facility] 01-20-2025 15:25-0400 Diastolic blood pressure 80 mm[Hg] Holden Praisler-Wood SENIOR DESIGNER/ART DIRECTOR.DIRECTOR PRODUCT Work Phone: [facility] 01-20-2025 15:25-0400 Heart rate 81 /min Holden Praisler-Wood SENIOR DESIGNER/ART DIRECTOR.DIRECTOR PRODUCT Work Phone: [facility] 01-20-2025 15:25-0400 Respiratory rate 18 /min Holden Praisler-Wood SENIOR DESIGNER/ART DIRECTOR.DIRECTOR PRODUCT Work Phone: [facility] 01-20-2025 15:25-0400 SaO2% (BldA) [Mass fraction] 99 % Holden Praisler-Wood SENIOR DESIGNER/ART DIRECTOR.DIRECTOR PRODUCT Work Phone: [facility] 01-20-2025 15:25-0400 Systolic blood pressure 121 mm[Hg] Holden Praisler-Wood SENIOR DESIGNER/ART DIRECTOR.DIRECTOR PRODUCT Work Phone: [facility] 01-19-2025 08:52-0400 Body height 165.[address] Bonifacio Bell MD Work Phone: [facility] 01-19-2025 08:45-0400 Body mass index (BMI) [Ratio] 22.6 kg/m2 Dr. Bonifacio Bell MD Work Phone: [facility] 01-19-2025 08:45-0400 Body weight 61.[address] Bonifacio Bell MD Work Phone: [facility] 01-19-2025 08:45-0400 Diastolic blood pressure 74 mm[Hg] Dr. Bonifacio Bell MD Work Phone: [facility] 01-19-2025 08:45-0400 Systolic blood pressure 116 mm[Hg] Dr. Bonifacio Bell MD Work Phone: [facility] 12-10-2024 07:31-0400 Body height 165.[address] Bonifacio Bell MD Work Phone: [facility] 12-10-2024 07:31-0400 Body mass index (BMI) [Ratio] 22.5 kg/m2 Dr. Bonifacio Bell MD Work Phone: [facility] 12-10-2024 07:31-0400 Body temperature 96.3 [degF] Dr. Bonifacio Bell MD Work Phone: [facility] 12-10-2024 07:31-0400 Body weight 61.[address] Bonifacio Bell MD Work Phone: [facility] 12-10-2024 07:31-0400 Diastolic blood pressure 78 mm[Hg] Dr. Bonifacio Bell MD Work Phone: [facility] 12-10-2024 07:31-0400 Heart rate 76 /min Dr. Bonifacio Bell MD Work Phone: [facility] 12-10-2024 07:31-0400 Respiratory rate 16 /min Dr. Bonifacio Bell MD Work Phone: [facility] 12-10-2024 07:31-0400 SaO2% (BldA) [Mass fraction] 91 % Dr. Bonifacio Bell MD Work Phone: [facility] 12-10-2024 07:31-0400 Systolic blood pressure 118 mm[Hg] Dr. Bonifacio Bell MD Work Phone: [facility] 11-28-2024 20:03-0400 Body temperature 97.9 [degF] Dr. Bonifacio Bell MD Work Phone: [facility] 11-28-2024 20:03-0400 Diastolic blood pressure 80 mm[Hg] Dr. Bonifacio Bell MD Work Phone: [facility] 11-28-2024 20:03-0400 Heart rate 77 /min Dr. Bonifacio Bell MD Work Phone: [facility] 11-28-2024 20:03-0400 Respiratory rate 18 /min Dr. Bonifacio Bell MD Work Phone: [facility] 11-28-2024 20:03-0400 SaO2% (BldA) [Mass fraction] 98 % Dr. Bonifacio Bell MD Work Phone: [facility] 11-28-2024 20:03-0400 Systolic blood pressure 111 mm[Hg] Dr. Bonifacio Bell MD Work Phone: [facility] 11-28-2024 17:05-0400 Body height 165.[address] Bonifacio Bell MD Work Phone: [facility] 11-28-2024 17:05-0400 Body mass index (BMI) [Ratio] 23.3 kg/m2 Dr. Bonifacio Bell MD Work Phone: [facility] 11-28-2024 17:05-0400 Body weight 63.[address] Bonifacio Bell MD Work Phone: [facility] 11-15-2024 14:21-0400 Body temperature 98.4 [degF] Dr. Bonifacio Bell MD Work Phone: [facility] 11-15-2024 14:21-0400 Diastolic blood pressure 66 mm[Hg] Dr. Bonifacio Bell MD Work Phone: [facility] 11-15-2024 14:21-0400 Heart rate 70 /min Dr. Bonifacio Bell MD Work Phone: [facility] 11-15-2024 14:21-0400 Respiratory rate 14 /min Dr. Bonifacio Bell MD Work Phone: [facility] 11-15-2024 14:21-0400 SaO2% (BldA) [Mass fraction] 98 % Dr. Bonifacio Bell MD Work Phone: [facility] 11-15-2024 14:21-0400 Systolic blood pressure 114 mm[Hg] Dr. Bonifacio Bell MD Work Phone: [facility] 06-15-2024 16:04-0400 Body height 165.1 cm Radha Dimare SENIOR DESIGNER/ART DIRECTOR.DIRECTOR PRODUCT Work Phone: [facility] 06-15-2024 16:04-0400 Body mass index (BMI) [Ratio] 22.2 kg/m2 Radha Dimare SENIOR DESIGNER/ART DIRECTOR.DIRECTOR PRODUCT Work Phone: [facility] 06-15-2024 16:04-0400 Body weight 60.5 kg Radha Dimare SENIOR DESIGNER/ART DIRECTOR.DIRECTOR PRODUCT Work Phone: [facility] 06-15-2024 16:04-0400 Diastolic blood pressure 76 mm[Hg] Radha Dimare SENIOR DESIGNER/ART DIRECTOR.DIRECTOR PRODUCT Work Phone: [facility] 06-15-2024 16:04-0400 Heart rate 78 /min Radha Dimare SENIOR DESIGNER/ART DIRECTOR.DIRECTOR PRODUCT Work Phone: [facility] 06-15-2024 16:04-0400 SaO2% (BldA) [Mass fraction] 98 % Radha Dimare SENIOR DESIGNER/ART DIRECTOR.DIRECTOR PRODUCT Work Phone: [facility] 06-15-2024 16:04-0400 Systolic blood pressure 110 mm[Hg] Radha Dimare SENIOR DESIGNER/ART DIRECTOR.DIRECTOR PRODUCT Work Phone: [facility] 04-08-2024 08:53-0400 Body height 165.1 cm Iris Lisa PA-C Work Phone: [facility] 04-08-2024 08:53-0400 Body mass index (BMI) [Ratio] 20.97 kg/m2 Iris Lisa PA-C Work Phone: [facility] 04-08-2024 08:53-0400 Body weight 57.15 kg Iris Lisa PA-C Work Phone: [facility] 04-08-2024 08:53-0400 Diastolic blood pressure 70 mm[Hg] Iris Lisa PA-C Work Phone: [facility] 04-08-2024 08:53-0400 Heart rate 64 /min Iris Gayleone PA-C Work Phone: [facility] 04-08-2024 08:53-0400 SaO2% (BldA) [Mass fraction] 98 % Iris Gayleone PA-C Work Phone: [facility] 04-08-2024 08:53-0400 Systolic blood pressure 100 mm[Hg] Iris Gayleone PA-C Work Phone: [facility] 03-11-2024 12:59-0400 Body mass index (BMI) [Ratio] 20.87 kg/m2 Jose Smitalebelem SENIOR DESIGNER/ART DIRECTOR.DIRECTOR PRODUCT Work Phone: [facility] 03-11-2024 12:59-0400 Body temperature 97.59 [degF] Jose Stanley SENIOR DESIGNER/ART DIRECTOR.DIRECTOR PRODUCT Work Phone: [facility] 03-11-2024 12:59-0400 Body weight 56.9 kg Jose Stanley SENIOR DESIGNER/ART DIRECTOR.DIRECTOR PRODUCT Work Phone: [facility] 03-11-2024 12:59-0400 Diastolic blood pressure 72 mm[Hg] Jose Stanley SENIOR DESIGNER/ART DIRECTOR.DIRECTOR PRODUCT Work Phone: [facility] 03-11-2024 12:59-0400 Heart rate 77 /min Jose Stanley SENIOR DESIGNER/ART DIRECTOR.DIRECTOR PRODUCT Work Phone: [facility] 03-11-2024 12:59-0400 Respiratory rate 18 /min Jose Lizeth SENIOR DESIGNER/ART DIRECTOR.DIRECTOR PRODUCT Work Phone: [facility] 03-11-2024 12:59-0400 SaO2% (BldA) [Mass fraction] 100 % Jose Stanley SENIOR DESIGNER/ART DIRECTOR.DIRECTOR PRODUCT Work Phone: [facility] 03-11-2024 12:59-0400 Systolic blood pressure 119 mm[Hg] Jose Ordoñezlebelem SENIOR DESIGNER/ART DIRECTOR.DIRECTOR PRODUCT Work Phone: [facility] 03-03-2024 18:02-0400 Diastolic Blood Pressure Non-Invasive 87 mm[Hg] TREE INMANER DO [facility] 03-03-2024 18:02-0400 Heart rate 66 /min TREE INMANER DO [facility] 03-03-2024 18:02-0400 Respiratory rate 18 /min TREE INMANER DO [facility] 03-03-2024 18:02-0400 Systolic Blood Pressure Non-Invasive 116 mm[Hg] TREE ARMSTRONG DO [facility] 03-03-2024 16:07-0400 Diastolic Blood Pressure Non-Invasive 74 mm[Hg] TREE ARMSTRONG DO [facility] 03-03-2024 16:07-0400 Heart rate 65 /min TREE INMANER DO [facility] 03-03-2024 16:07-0400 Respiratory rate 18 /min TREE INMANER DO [facility] 03-03-2024 16:07-0400 Systolic Blood Pressure Non-Invasive 115 mm[Hg] TREE ARMSTRONG DO [facility] 03-03-2024 12:30-0400 Diastolic Blood Pressure Non-Invasive 69 mm[Hg] TREE ARMSTRONG DO [address] [place] [address] 03-03-2024 12:30-0400 Heart rate 64 /min TREE INMANER DO [address] [place] [address] 03-03-2024 12:30-0400 Respiratory rate 16 /min TREE INMANER DO [address] [place] [address] 03-03-2024 12:30-0400 Systolic Blood Pressure Non-Invasive 109 mm[Hg] TREE INMANER DO [facility] 03-03-2024 11:07-0400 Body weight 56.2 kg TREE ARMSTRONG DO [address] [place] [address]-10-2024 10:51-0400 Body temperature 98.24 [degF] DR TREE ARMSTRONG DO [facility] 01-23-2024 10:36-0400 Body height 165.1 cm Araseli Springfield SENIOR DESIGNER/ART DIRECTOR.DIRECTOR PRODUCT Work Phone: [facility] 01-23-2024 10:36-0400 Body mass index (BMI) [Ratio] 20.3 kg/m2 Araseli [place] SENIOR DESIGNER/ART DIRECTOR.DIRECTOR PRODUCT Work Phone: [facility] 01-23-2024 10:36-0400 Body weight 55.34 kg Araseli [place] SENIOR DESIGNER/ART DIRECTOR.DIRECTOR PRODUCT Work Phone: [facility] 01-23-2024 10:36-0400 Heart rate 66 /min Araselibrina Markham SENIOR DESIGNER/ART DIRECTOR.DIRECTOR PRODUCT Work Phone: [facility] 01-23-2024 10:36-0400 SaO2% (BldA) [Mass fraction] 97 % Araseli Rashi SENIOR DESIGNER/ART DIRECTOR.DIRECTOR PRODUCT Work Phone: [facility] 12-24-2023 10:08-0400 Body height 165.1 cm Thu Boss MD Work Phone: [facility] 12-24-2023 10:08-0400 Body mass index (BMI) [Ratio] 20.3 kg/m2 Thu Boss MD Work Phone: [facility] 12-24-2023 10:08-0400 Body weight 55.34 kg Thu Boss MD Work Phone: [facility] 12-24-2023 10:08-0400 Diastolic blood pressure 73 mm[Hg] Thu Boss MD Work Phone: [facility] 12-24-2023 10:08-0400 Heart rate 81 /min Thu Boss MD Work Phone: [facility] 12-24-2023 10:08-0400 Systolic blood pressure 110 mm[Hg] Thu Boss MD Work Phone: [facility] 12-18-2023 07:56-0400 Body height 165.1 cm Yusuf Arita MD Work Phone: [facility] 12-18-2023 07:56-0400 Body mass index (BMI) [Ratio] 20.3 kg/m2 Yusuf Arita MD Work Phone: [facility] 12-18-2023 07:56-0400 Body weight 55.34 kg Yusuf Arita MD Work Phone: [facility] 12-18-2023 07:56-0400 Diastolic blood pressure 70 mm[Hg] Yusuf Arita MD Work Phone: [facility] 12-18-2023 07:56-0400 Heart rate 75 /min Yusuf Arita MD Work Phone: [facility] 12-18-2023 07:56-0400 SaO2% (BldA) [Mass fraction] 98 % Yusuf Arita MD Work Phone: [facility] 12-18-2023 07:56-0400 Systolic blood pressure 100 mm[Hg] Yusuf Arita MD Work Phone: [facility] 10-27-2023 15:04-0500 Diastolic Blood Pressure Non-Invasive 74 mm[Hg] DR MIO TERRAZAS MD [facility] 10-27-2023 15:04-0500 Heart rate 88 /min DR MOI TERRAZAS MD [facility] 10-27-2023 15:04-0500 Systolic Blood Pressure Non-Invasive 106 mm[Hg] DR MIO TERRAZAS MD [facility] 10-27-2023 13:10-0500 Heart rate 82 /min DR MIO TERRAZAS MD [facility] 10-27-2023 11:55-0500 Heart rate 87 /min DR MIO TERRAZAS MD [address] [place] [address] 10-27-2023 11:53-0500 Body temperature 98.78 [degF] DR MIO TERRAZAS MD [facility] 10-27-2023 11:53-0500 Diastolic Blood Pressure Non-Invasive 61 mm[Hg] DR MIO TERRAZAS MD [facility] 10-27-2023 11:53-0500 Heart rate 89 /min DR MIO TERRAZAS MD [facility] 10-27-2023 11:53-0500 Mean blood pressure 73 mm[Hg] DR MIO TERRAZAS MD [address] [place] [address] 10-27-2023 11:53-0500 Reason For Taking VItal Signs DR MIO TERRAZAS MD [facility] 10-27-2023 11:53-0500 Respiratory rate 16 /min DR MIO TERRAZAS MD [facility] 10-27-2023 11:53-0500 Systolic Blood Pressure Non-Invasive 106 mm[Hg] DR MIO TERRAZAS MD [facility] 10-27-2023 08:39-0500 Body temperature 99.5 [degF] DR MIO TERRAZAS MD [facility] 10-27-2023 08:39-0500 Diastolic Blood Pressure Non-Invasive 66 mm[Hg] DR MIO TERRAZAS MD [facility] 10-27-2023 08:39-0500 Mean blood pressure 80 mm[Hg] DR MIO TERRAZAS MD [facility] 10-27-2023 08:39-0500 Reason For Taking VItal Signs DR MIO TERRAZAS MD [facility] 10-27-2023 08:39-0500 Respiratory rate 16 /min DR MIO TERRAZAS MD [facility] 10-27-2023 08:39-0500 Systolic Blood Pressure Non-Invasive 119 mm[Hg] DR MIO TERRAZAS MD [facility] 10-27-2023 07:43-0500 Reason For Taking VItal Signs DR MIO TERRAZAS MD [facility] 10-27-2023 03:15-0500 Body temperature 99.32 [degF] DR MIO TERRAZAS MD [facility] 10-27-2023 03:15-0500 Mean blood pressure 68 mm[Hg] DR MIO TERRAZAS MD [facility] 10-27-2023 03:15-0500 Respiratory rate 18 /min DR MIO TERRAZAS MD [address] [place] [address] 10-26-2023 09:19-0500 Heart rate 80 /min DR MIO TERRAZAS MD [address] [place] [address] 10-26-2023 07:06-0500 Heart rate 80 /min DR MIO TERRAZAS MD [address] [place] [address] 10-26-2023 00:36-0500 Signs/Symptoms Transfusion Reaction DR MIO TERRAZAS MD [facility] 10-25-2023 23:35-0500 Diastolic blood pressure 96 mm[Hg] DR MIO TERRAZAS MD [facility] 10-25-2023 23:35-0500 Heart rate 67 /min DR MIO TERRAZSA MD [facility] 10-25-2023 23:35-0500 Systolic blood pressure 102 mm[Hg] DR MIO TERRAZAS MD [facility] 10-25-2023 23:34-0500 Signs/Symptoms Transfusion Reaction No DR MIO TERRAZAS MD [facility] 10-25-2023 23:10-0500 Signs/Symptoms Transfusion Reaction DR MIO TERRAZAS MD [address] [place] [address] 10-25-2023 21:38-0500 Diastolic blood pressure 94 mm[Hg] DR MIO TERRAZAS MD [address] [place] [address] 10-25-2023 21:38-0500 Heart rate 77 /min DR MIO TERRAZAS MD [facility] 10-25-2023 21:38-0500 Systolic blood pressure 114 mm[Hg] DR MIO TERRAZAS MD [facility] 10-25-2023 21:07-0500 Diastolic blood pressure 60 mm[Hg] DR MIO TERRAZAS MD [facility] 10-25-2023 21:07-0500 Heart rate 70 /min DR MIO TERRAZAS MD [facility] 10-25-2023 21:07-0500 Systolic blood pressure 125 mm[Hg] DR MIO TERRAZAS MD [facility] 10-25-2023 15:55-0500 Blood Pressure Cuff Size DR MIO TERRAZAS MD [facility] 10-25-2023 15:55-[address] MIO TERRAZAS MD [facility] 10-25-2023 15:55-[address] MIO Babb [facility] 10-25-2023 15:20-0500 Diastolic blood pressure 53 mm[Hg] Bautista Lunne [facility] 10-25-2023 15:20-0500 Heart rate 84 /min Bautista Lunne [facility] 10-25-2023 15:20-0500 Respiratory rate 16 /min Bautista Lunne [facility] 10-25-2023 15:20-0500 Systolic blood pressure 109 mm[Hg] Bautista Lunne [facility] 10-25-2023 15:18-0500 Body height 165.[address] MIO TERRAZAS MD [facility] 10-25-2023 15:18-0500 Body weight 45.[address] MIO TERRAZAS MD [facility] 10-25-2023 15:18-0500 Body weight 16.84 kg/m2 DR MIO TERRAZAS MD [facility] 10-25-2023 14:42-0500 Body temperature 97.5 [degF] Bautista [employer] [facility] 10-25-2023 13:20-0500 Body weight 49.895 Cernium [facility] 10-25-2023 13:20-0500 SaO2% (BldA) [Mass fraction] 100 % Cernium [facility] 10-17-2022 08:12-0500 Body height 165.1 cm Yin Praekh MD Work Phone: [facility] 10-17-2022 08:12-0500 Body temperature 98.49 [degF] Yin Parekh MD Work Phone: [facility] 10-17-2022 08:12-0500 Body weight 53.52 kg Yin Parekh MD Work Phone: [facility] 10-17-2022 08:12-0500 Diastolic blood pressure 87 mm[Hg] Yin Parekh MD Work Phone: [facility] 10-17-2022 08:12-0500 Heart rate 81 /min Yin Parekh MD Work Phone: [facility] 10-17-2022 08:12-0500 Systolic blood pressure 131 mm[Hg] Yin Parekh MD Work Phone: [facility] 07-30-2022 18:15-0500 Heart rate 84 /min Bautista [employer] [facility] 07-30-2022 15:29-0500 Body height 165.1 cm Bautista Fernandesne [facility] 07-30-2022 15:29-0500 Body temperature 96.9 [degF] Bautista Patone [facility] 07-30-2022 15:29-0500 Body weight 51.256 Bautista Patone [facility] 07-30-2022 15:29-0500 Diastolic blood pressure 90 mm[Hg] Bautista Lunne [facility] 07-30-2022 15:29-0500 Respiratory rate 20 /min Bautista Fernandesne [facility] 07-30-2022 15:29-0500 SaO2% (BldA) [Mass fraction] 100 % Bautista Fernandesne [facility] 07-30-2022 15:29-0500 Systolic blood pressure 159 mm[Hg] Bautista Patone [facility] 07-12-2022 08:30-0500 Body height 165.1 cm Yin Parekh MD Work Phone: [facility] 07-12-2022 08:30-0500 Body temperature 98.01 [degF] Yin Parekh MD Work Phone: [facility] 07-12-2022 08:30-0500 Body weight 52.16 kg Yin Parekh MD Work Phone: [facility] 07-12-2022 08:30-0500 Diastolic blood pressure 86 mm[Hg] Yin Parekh MD Work Phone: [facility] 07-12-2022 08:30-0500 Heart rate 72 /min Yin Parekh MD Work Phone: [facility] 07-12-2022 08:30-0500 Systolic blood pressure 138 mm[Hg] Yin Parekh MD Work Phone: [facility] 12-11-2021 01:13-0400 Diastolic blood pressure 82 mm[Hg] Bautista [employer] [facility] 12-11-2021 01:13-0400 Heart rate 62 /min BautistaNavut [facility] 12-11-2021 01:13-0400 Respiratory rate 16 /min Bautista [employer] [facility] 12-11-2021 01:13-0400 SaO2% (BldA) [Mass fraction] 98 % BautistaNavut [facility] 12-11-2021 01:13-0400 Systolic blood pressure 121 mm[Hg] Bautista [employer] [facility] 12-10-2021 21:12-0400 Body temperature 97.1 [degF] Bautista Lift [employer] [facility] 12-10-2021 21:12-0400 Body weight 58.151 Bautista [employer] [facility] 09-03-2021 12:06-0500 Body height 165.1 cm Bautista [employer] [facility] Encounters Encounter Date Encounter Type Care Provider Facility Start: 02-10-2025 End: 02-10-2025 Patient encounter procedure Sid PALMA -[facility] Work Phone: Start: 02-10-2025 End: 02-10-[address] Bonifacio Bell MD Work Phone: [facility] Work Phone: Start: 01-20-2025 End: 01-20-2025 Patient encounter procedure Holden Lindsey SENIOR DESIGNER/ART DIRECTOR.DIRECTOR PRODUCT Work Phone: [facility] Comment on above: Acute left-sided low back pain with left-sided sciatica Start: 01-20-2025 End: 01-20-2025 ambulatory HOLDEN LINDSEY Facility:[facility] Start: 01-19-2025 End: 01-19-2025 Patient encounter procedure Tracy [facility] Work Phone: Start: 01-19-2025 End: 01-19-2025 Patient encounter status Tracy Santizo NP-C [facility] Start: 01-19-2025 End: 01-19-[address] Bonifacio Bell MD Work Phone: [facility] Work Phone: Start: 12-22-2024 End: 12-22-2024 ambulatory BAUTISTA MANZANO Facility:[facility] Start: 12-10-2024 End: 12-10-2024 Patient encounter procedure Sid PALMA -[facility] Work Phone: Start: 12-10-2024 End: 12-10-[address] Bonifacio Bell MD Work Phone: [facility] Work Phone: Start: 12-10-2024 End: 12-10-2024 ambulatory Bonifacio Bell Facility:[facility] Start: 12-06-2024 ambulatory BONIFACIO METCALF MD Facility:[facility] Start: 11-28-2024 End: 11-28-2024 Emergency department patient visit Dr. Bonifacio Bell MD Work Phone: -Emergency Department Work Phone: Start: 11-23-2024 End: 11-23-2024 ambulatory BONIFACIO BELL MD Facility:[facility] Start: 11-15-2024 End: 11-15-2024 Patient encounter procedure Jeremiah Macias [facility] -[facility] Work Phone: Start: 11-15-2024 End: 11-15-2024 ambulatory Meylatishakinga Davechelemarina Facility:[facility] Start: 10-15-2024 End: 10-15-2024 Patient encounter procedure Hubert Oliva PA -[facility] Work Phone: Start: 10-15-2024 End: 10-15-2024 ambulatory Hubert PALMA Facility:[facility] Start: 08-02-2024 End: 08-02-[address] Bonifacio Bell MD -Laboratory Work Phone: Start: 08-02-2024 End: 08-02-2024 ambulatory Bonifacio Bell Facility:[facility] Start: 07-29-2024 End: 07-29-2024 ambulatory Efdon Curielmarina Facility:[facility] Start: 07-23-[address] [facility] Start: 07-16-2024 End: 07-21-2024 Evaluation and management of inpatient BAUTISTA MANZANARESCHELSEA MANZANO Facility:[id number] Start: 07-13-2024 ambulatory Hernán Javier Facility:[facility] Start: 07-13-2024 End: 07-16-2024 Evaluation and management of inpatient Efewongbe Olechelee Facility:[facility] Start: 07-06-2024 End: 07-06-2024 ambulatory PRANAV MARTINEZ JEAN Facility:[id number] Start: 07-06-2024 End: 07-06-2024 Patient encounter procedure [facility] Work Phone: [facility] Comment on above: Hypersomnia (Primary Dx) Start: 07-05-2024 End: 07-05-2024 Patient encounter procedure [facility] Work Phone: [facility] Comment on above: Hypersomnia Start: 07-05-2024 End: 07-06-2024 ambulatory PRANAV PENA Facility:[id number] Start: 07-05-2024 Encounter for chaz l adult medical examination without abnormal findings Bonifacio Bell [facility] Start: 06-15-2024 End: 06-15-2024 ambulatory BAUTISTA MANZANO Facility:[facility] Start: 06-15-2024 End: 06-15-2024 Patient encounter procedure Radha Macdonald APRN.DIRECTOR PRODUCT Work Phone: Neurology Comment on above: Intractable chronic migraine without aura and without status migrainosus (Primary Dx) Start: 06-14-[address] Marina Bell MD Work Phone: [facility] Start: 06-14-2024 End: 06-14-2024 ambulatory Lili Ellis Facility:[facility] Start: 06-11-2024 End: 06-11-2024 ambulatory Radha Macdonald SENIOR DESIGNER/ART DIRECTOR.DIRECTOR PRODUCT Work Phone: Neurology Comment on above: Botox Injections Start: 05-28-2024 End: 05-28-2024 Telephone encounter Pranav Pena MD Work Phone: [facility] Comment on above: Orders (Patient did not complete PSG and MSLT. She left in the middle of the night. Can you place new order for PSG so that I can reschedule her? Thank you) Start: 05-26-2024 End: 05-27-2024 Patient encounter procedure [facility] Work Phone: [facility] Comment on above: At risk for narcolep sy Start: 05-26-2024 End: 05-27-2024 ambulatory IRISRADHA GAYLEONE Facility:[id number] Start: 05-24-2024 End: 05-24-2024 ambulatory Radha Macdonald APRN.DIRECTOR PRODUCT Work Phone: Neurology Comment on above: Medical necessity au thorization Start: 05-04-2024 End: 05-04-2024 ambulatory ANTHONY NICHOLS Facility:[facility] Start: 05-04-2024 End: 05-04-2024 Patient encounter procedure Radha Macdonald APRN.CNP Work Phone: Neurology Comment on above: Intractable migraine without aura and without status migrainosus (Primary Dx); Facial pain; Headache disorder; Cervicalgia Start: 04-16-2024 End: 04-16-2024 ambulatory ANTHONY NICHOLS Facility:[facility] Start: 04-16-2024 End: 04-16-2024 Patient encounter procedure Anthony Nichols MD Work Phone: Otolaryngology Comment on above: Facial pain (Primary Dx); Headache disorder; Other fatigue Start: 04-13-2024 End: 04-13-2024 [facility] Facility:[facility] Start: 04-13-2024 End: 04-13-2024 Subsequent hospital visit by physician [facility] (I-Stat) Work Phone: Cat Scan Comment on above: Chronic sinusitis, u nspecified location [J32.9] Start: 04-08-2024 End: 04-08-2024 Patient encounter procedure Iris Gonzalez PA-C Work Phone: [facility] Comment on above: At risk for narcolep sy (Primary Dx); Daytime sleepiness; Tobacco use disorder Start: 04-08-2024 End: 04-08-2024 ambulatory IRIS GONZALEZ Facility:[id number] Start: 03-30-2024 End: 03-30-2024 [facility] Center Facility:[facility] Start: 03-30-2024 End: 03-30-2024 Patient encounter procedure Elizabeth Garcia [facility] Work Phone: Audiology Comment on above: Sensorineural hearin g loss (SNHL) of both ears (Primary Dx); Dizziness and giddiness; Dysfunction of both eustachian tubes Chronic sinusitis, u nspecified location (Primary Dx); Ear fullness, bilateral Start: 03-11-2024 End: 03-11-2024 ambulatory BAUTISTA MANZANO Facility:[facility] Start: 03-11-2024 End: 03-11-2024 Patient encounter procedure Jose Stanley APRN.DIRECTOR PRODUCT Work Phone: [facility] Comment on above: Procedure not karina d out (Primary Dx) Start: 03-09-2024 End: 03-09-2024 Patient encounter procedure [facility] Work Phone: [facility] Comment on above: ABBY (obstructive sle ep apnea) Start: 03-09-2024 End: 03-11-2024 ambulatory ROSEMARIE SANABRIA Facility:[id number] Start: 03-03-2024 End: 03-03-2024 Emergency department patient visit DR TREE ARMSTRONG DO [facility] Start: 02-24-2024 Orders Only Araseli swann SENIOR DESIGNER/ART DIRECTOR.DIRECTOR PRODUCT Work Phone: Pulmonary Medicine Comment on above: Tobacco use current (Primary Dx) Start: 02-10-2024 ambulatory ARASELI MARKHAM Facili ty:[id number] Start: 02-10-2024 End: 02-10-2024 Subsequent hospital visit by physician Ct [facility] Work Phone: RADIO CT SCAN [facility] Comment on above: Tobacco use current [Z72.0] Start: 02-09-2024 End: 02-09-2024 Patient encounter procedure Thu Boss MD Work Phone: Urology Comment on above: Bladder wall thicken ing [N32.89] (Primary Dx); 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, sequela; Recurrent UTI; Urgency of urination Start: 02-09-2024 End: 02-09-2024 ambulatory THU BOSS Facility:[id number] Start: 01-26-2024 End: 01-26-2024 ambulatory BAUTISTA MANZANO Facility:[facility] Start: 01-23-2024 End: 01-23-2024 Patient encounter procedure Araseli Markham SENIOR DESIGNER/ART DIRECTOR.DIRECTOR PRODUCT Work Phone: [facility] Comment on above: Encounter for screen ing for lung cancer (Primary Dx); Tobacco use disorder; Tobacco use current Start: 01-23-2024 End: 01-23-2024 ambulatory ARASELI MARKHAM Facility:[id number] Start: 01-08-2024 Telephone encounter Rosemarie Park Lupe mayberry SENIOR DESIGNER/ART DIRECTOR.DIRECTOR PRODUCT Work Phone: [facility] Comment on above: Results (PSG) Start: 12-31-2023 ambulatory [facility] Facility:[facility] Start: 12-29-2023 End: 12-29-2023 [facility] Work Phone: [facility] Comment on above: Tobacco use disorder Start: 12-29-2023 End: 12-29-2023 ambulatory YUSUF ARITA Facility:[id number] Start: 12-26-2023 Telephone encounter Jennifer Carlton garcia SENIOR DESIGNER/ART DIRECTOR.DIRECTOR PRODUCT Work Phone: Urology Comment on above: Results Start: 12-24-2023 End: 12-24-2023 Patient encounter procedure Thu Boss MD Work Phone: Urology Comment on above: Bladder wall thicken ing [N32.89] (Primary Dx); 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, sequela; Recurrent UTI; Urgency of urination Start: 12-24-2023 End: 12-24-2023 ambulatory THU BOSS Facility:[id number] Start: 12-18-2023 End: 12-18-2023 Office outpatient new 30 minutes Yusuf Arita MD Work Phone: Katrin Zaidi Comment on above: Tobacco use disorder (Primary Dx); Sleep disorder Start: 12-18-2023 End: 12-18-2023 ambulatory YUSUF ARITA Facility:[id number] Start: 12-10-2023 Telephone encounter Toni Marsh MD Work Phone: Urology Comment on above: Appointment Start: 12-01-2023 End: 03-24-[address] MIO TERRAZAS MD Facility:A Start: 11-19-2023 End: 11-20-2023 Discharged Recurring Bautista Manzano [facility] Start: 11-19-2023 End: 11-19-2023 ambulatory Mio Terrazas Facility:[facility] Start: 11-08-2023 End: 11-08-[address] NATHAN MARTINO MD Facility:A Start: 11-05-2023 End: 11-05-[address] MIO TERRAZAS MD Facility:A Start: 10-25-2023 End: 10-27-2023 Evaluation and management of inpatient DR MIO TERRAZAS MD [facility] Start: 10-25-2023 End: 10-25-2023 Emergency department patient visit [facility] Start: 10-25-2023 End: 10-25-2023 Emergency department patient visit Bautista Manzano Facility:[facility] Start: 07-12-2023 Patient encounter procedure [facility] Start: 07-08-2023 End: 07-08-2023 Emergency department patient visit [facility] Start: 02-19-2023 Refill Yin goldstein MD Work Phone: [facility] [place] Comment on above: Refill Request Start: 01-22-2023 ambulatory BAUTISTA MANZANO [facility] Start: 11-05-2022 Refill Yin goldstein MD Work Phone: [facility] [place] Comment on above: Refill Request Start: 10-17-2022 End: 10-17-2022 Patient encounter procedure Yin Parekh MD Work Phone: [facility] [place] Comment on above: Fibromyalgia (Primar y Dx); Seasonal allergic rhinitis due to pollen; Sinus headache Start: 08-12-2022 Telephone encounter Yin Parekh MD Work Phone: [facility] [place] Comment on above: Patient Update (Low potassium ) Start: 07-30-2022 End: 07-30-2022 Emergency department patient visit Bautista Manzano [facility] Start: 07-12-2022 Telephone encounter Yin Parekh MD Work Phone: [facility] [place] Comment on above: Patient Update (Need labs in one months ) Start: 07-12-2022 End: 07-12-2022 Patient encounter procedure Yin Parekh MD Work Phone: [facility] [place] Comment on above: Fibromyalgia (Primar y Dx); Seasonal allergic rhinitis due to pollen; Chronic neck and back pain Start: 05-27-2022 Patient encounter procedure Bautistarosa Manzano [facility] Start: 12-10-2021 End: 12-11-2021 Emergency department patient visit Bautista Manzano [facility] Start: 10-31-2021 End: 10-31-2021 Patient encounter procedure [facility] [address] Start: 09-03-2021 End: 09-03-2021 Admission to same day surgery center Bautista Patojerry [facility] Start: 05-22-2021 Patient encounter procedure Bautistarosa Manzano [facility] Start: 01-06-2021 End: 01-06-2021 ambulatory Андрей Dalal Scarlett Facility:[facility] Start: 11-27-2020 End: 11-27-2020 ambulatory Андрей Dalal Scarlett Facility:[facility] Start: 10-11-2019 End: 10-14-2019 Patient encounter procedure BAUTISTA MANZANO [facility] Start: 10-11-2019 End: 10-13-2019 Subsequent hospital visit by physician Bautista GUTIERREZ [facility] Comment on above: Nonintractable heada janell, unspecified chronicity pattern, unspecified headache type; Fibromyalgia; Reactive depression Start: 05-13-2019 Patient encounter procedure BAUTISTA MANZANO [facility] Start: 07-08-2016 End: 07-08-2016 BREANA VERGARA [facility] Start: 07-04-2016 End: 07-04-2016 NADEEM HORNER [facility] Start: 06-26-2016 End: 06-26-2016 [facility] Procedures Date Procedure Procedure Detail Performing Clinician Start: 12-10-2024 Total iron binding capacity measurement Dr. Bonifacio Bell MD Work Phone: Start: 11-28-2024 X-ray of chest, PA a nd lateral views Dr. Bonifacio Bell MD Work Phone: Start: 11-28-2024 D-dimer assay, quantitative Dr. Bonifacio Bell MD Work Phone: Comment on above: NORMAL D-Dimer level (<0.50) indicates no DVT or PE. Start: 11-28-[address] Bonifacio Bell MD Work Phone: Start: 07-16-2024 Antibody screen YUSUF PEREZ Comment on above: Order Comment: Speci men Type: BLOOD SPECIMENOrdering Facility: [facility] Address: [address] [place] [address] Performed By: #### L [id number], [facility] ####[facility] BLOOD BANKIA [id number] [place] [address] [place] Start: 07-16-2024 History of placement of stent for coronary artery disease History of coronary angioplasty with insertion of stent Holden Lindsey APRN.CNP Work Phone: Start: 04-13-2024 Ct maxillofacial w/o contrast material Gely Gottlieb PA Work Phone: Start: 03-30-2024 HEARING TEST/AUDIOGRAM Elizabeth Tortorea AuD, CCC-A Work Phone: Start: 02-10-2024 CT LUNG SCREEN HEATHER Markham SENIOR DESIGNER/ART DIRECTOR.DIRECTOR PRODUCT Work Phone: Start: 02-09-2024 Urnls dip stick/tabl et rgnt auto w/o microscopy Thu Boss MD Work Phone: Start: 12-24-2023 Urnls dip stick/tabl et rgnt auto w/o microscopy Thu Boss MD Work Phone: Start: 10-27-[address] ISAEBLLE ARMSTRONG DO Comment on above: Summary: 1. Left ventricle: The cavity size is normal. Wall thickness is normal. Systolic function is mildly reduced. The estimated ejection fraction is 45-50%. Akinesis of the inferolateral myocardium. Severe hypokinesis of the inferior myocardium. Akinesis of the mid-apical anterolateral myocardium. Grade I diastolic dysfunction. 2. Right atrium: The estimated right atrial pressure is 3 mm Hg. Start: 10-25-2023 Lumbar puncture usin g fluoroscopic guidance Bautista Manzano Start: 10-25-2023 Plain chest X-ray Bautista [employer] Start: 10-25-[address] TREE ARMSTRONG DO Comment on above: SUMMARY: 1. 1st lesion: Stent placement was performed. A 3.5 mm (D) x 16 mm (L), Synergy XD stent was used. The stent was advanced across the lesion and deployed with two inflations and a maximum pressure of 15 raul. 2. Left ventricle: Systolic function is moderately reduced. The estimated ejection fraction is 35-40%. 3. Right coronary: Mid-vessel lesion: The diagnostic study demonstrated a discrete, 100% . The distal vessel supplies a large vascular territory. The lesion is a likely culprit for the patient's clinical presentation. The lesion presents an ACC/AHA type A/B low/moderate risk lesion for intervention. Stent placement was performed, resulting in an excellent angiographic appearance (see 1st lesion). Following intervention, there is a residual 0% stenosis with LV grade 3 flow (brisk flow). IMPRESSIONS: Acute coronary syndrome. Reperfusion was successfully achieved. RECOMMENDATIONS: 1. Add aspirin, 81 mg PO daily. 2. Add ticagrelor (Brilinta), loading dose 180 mg PO, standing dose 90 mg PO bid. 3. Add statin therapy. 4. Add beta blockers. 5. Add KIANNA inhibitors. 6. Patient management should include avoidance of all tobacco products and a cardiac rehabilitation program. The patient was counseled regarding the importance of adherence to the prescribed antiplatelet therapy and a low fat diet. 7. Patient management should include aggressive medical therapy. Start: 09-18-2023 Lipid 1996 panel - S andrey or Plasma Yusuf Arita MD Work Phone: Start: 07-12-2023 Screening mammograph y of bilateral breasts Bautista Fernandesjerry Start: 07-08-2023 Plain chest X-ray Bautista Fernandesjerry Start: 01-22-2023 Radex spine lumbosac ral 2/3 views BAUTISTA FERNANDESJERRY Start: 07-30-2022 Lumbar puncture usin g fluoroscopic guidance Bautista Manzano Start: 07-30-2022 Plain chest X-ray Bautista Manzano Start: 05-27-2022 SCREEN ROSE BILAT W/CAD Bautista Manzano Start: 12-10-2021 CT cervical spine wi thout contrast Bautista Fernandesjerry Start: 12-10-2021 CT of head without contrast Bautista Manzano Start: 09-03-2021 Postop Monitor Michelle Foreman Start: 09-03-2021 Thermometer Michelle jackson Start: 09-03-2021 Colonoscopy DO Marky Slaughter Start: 09-03-2021 Angiocaths Viktoria Darby Start: 09-03-2021 Thermometer Elham mckee Start: 09-03-2021 IV Start Endo Viktoria barton Start: 09-03-2021 Preop Monitor Elham Acosta lroy Start: 05-22-2021 CT of head without contrast Bautista Manzano Start: 10-11-2019 Comprehensive metabo lic panel BAUTISTA LUNNE Start: 10-11-2019 Lipid panel BAUTISTA JOSE E Start: 10-11-2019 Sedimentation rate r bc automated BAUTISTA LUNNE Start: 10-11-2019 Comprehensive metabo lic panel Bautista R Lunne Work Phone: Start: 10-11-2019 Lipid panel Bautista R Susan nne Work Phone: Start: 10-11-2019 Sedimentation rate r bc automated Bautista R Lunne Work Phone: Start: 10-11-2019 Lipid 1996 panel - S andrey or Plasma Andrzej Marsh MD Work Phone: Start: 05-13-2019 Radex foot complete minimum 3 views BAUTISTA RENATA Start: 07-02-2012 Mammography Yin Parekh MD Work Phone: Start: 08-25-[address] MIO TERRAZAS MD Start: 08-25-[address] XU TERRAZAS MD Start: 08-25-[address] MIO TERRAZAS MD History of placement of stent for coronary artery disease S/P primary angioplasty with coronary stent-GERMAN to RCA 10/2023 DR TREE ARMSTRONG DO Plan of Treatment Date Care Activity Detail Author Start: 09-18-2028 Lipid panel Lipid Screening [facility] Start: 07-21-2027 Diabetes Screening Diabetes Screening [facility] Start: 09-18-2026 Diabetes Screening Diabetes Screening [facility] Start: 09-12-2025 Diabetes Screening Diabetes Screening [facility] Start: 04-25-2025 Influenza vaccination Influenza Vaccine (Season Ended) [facility] Start: 02-14-2025 ambulatory Ambulatory Facility:[facility] Start: 02-14-2025 MG Breast - bilateral Screening [facility] Start: 02-10-2025 Patient referral [facility] Work Phone: Start: 02-09-2025 Screening for malignant neoplasm of lung Lung Cancer Screening [facility] Start: 11-28-2024 End: 11-28-2024 [facility] Start: 11-28-2024 End: 11-28-2024 [facility] Start: 10-11-2024 Lipid panel Lipid Screening [facility] Start: 10-11-2024 Lipid screen Lipid screen [facility] Start: 08-03-2024 End: 08-03-2024 Patient encounter procedure 08/03/2024 2:30 PM EST Office Visit Katrin Zaidi [address] [place] [address] Iris Gonzalez PA-C [address] [place] [address] Follow Up / PSG w/ MSLT Katrin Zaidi Comment on above: Follow Up / PSG w/ MSLT Start: 07-12-2024 Screening for malignant neoplasm of breast Mammogram Screening [facility] Start: 07-06-2024 End: 07-06-2024 Patient encounter procedure 07/06/2024 7:00 AM EST Office [facility] [address] [facility] [address] [place] [address] dr pena [facility] Comment on above: dr pena Start: 07-05-2024 End: 07-05-2024 Patient encounter procedure 07/05/2024 8:30 PM EST Office Visit [facility] [address] [place] [address] dr pena [facility] Comment on above: dr pena Start: 06-22-2024 End: 06-22-2024 Patient encounter procedure 06/22/2024 2:20 PM EDT Office Visit Katrin Zaidi [address] [place] [address] Pranav Pena MD [address] [place] [address] Follow Up / PSG w/ MSLT Katrin Zaidi Comment on above: Follow Up / PSG w/ MSLT Start: 06-15-2024 End: 06-15-2024 Patient encounter procedure 06/15/2024 4:30 PM EDT Office Visit Neurology [address] [place] [address] Radha Macdonald APRN.DIRECTOR PRODUCT [address] [place] [address] botox injection Neurology Comment on above: botox injection Start: 05-27-2024 End: 05-27-2024 Patient encounter procedure 05/27/2024 8:00 AM EDT Office Visit [place] [address] [place] [address] PSG W MSLT [facility] Comment on above: PSG W MSLT Start: 05-26-2024 End: 05-26-2024 Patient encounter procedure 05/26/2024 8:30 PM EDT Office Visit [facility] [address] [place] [address] PSG W MSLT [facility] Comment on above: PSG W MSLT Start: 05-14-2024 End: 05-14-2024 Patient encounter procedure 05/14/2024 3:45 PM EDT Office Visit Otolaryngology [address] [place] [address] Anthony Nichols MD [address] [place], [place] [id number] sinus issues follow up from CT Otolaryngology Comment on above: sinus issues follow up from CT Start: 05-04-2024 End: 05-04-2024 Patient encounter procedure 05/04/2024 7:30 AM EDT Office Visit Neurology [address] [place] [address] Radha Macdonald APRN.DIRECTOR PRODUCT [address] [place] [address] Facial pain [R51.9] Neurology Comment on above: Facial pain [R51.9] Start: 04-25-2024 Covid-19 Vaccine ( season) Covid-19 Vaccine () [facility] Start: 04-25-2024 Covid-19 Vaccine ( season) Covid-19 Vaccine () [facility] Start: 04-25-2024 Influenza vaccination [facility] Start: 04-16-2024 End: 04-16-2024 Patient encounter procedure 04/16/2024 9:45 AM EDT Office Visit Otolaryngology [address] [place] [address] Anthony Nichols MD [address] [place] [address] sinus issues follow up from CT Otolaryngology Comment on above: sinus issues follow up from CT Start: 04-13-2024 End: 04-13-2024 Patient encounter procedure 04/13/2024 8:00 AM EDT Appointment Cat Scan [address] [place], [place] [id number] Chronic sinusitis, unspecified location [J32.9] Cat Scan Comment on above: Chronic sinusitis, unspecified location [J32.9] Start: 04-08-2024 End: 07-08-2024 TOXICOLOGY SCREEN, ROUTINE URINE TOXICOLOGY SCREEN, ROUTINE URINE Lab Routine At risk for narcolepsy Expected: 04/08/2024, Expires: 07/08/2024 [facility] Comment on above: Expected: 04/08/2024, Expires: Start: 04-08-2024 End: 04-08-2024 Patient encounter procedure 04/08/2024 9:00 AM EDT Office Visit Katrin Zaidi [address] [place] [address] Iris Gonzalez PA-C [address] [place] [address] 3 month Follow Up / HSAT Katrin Zaidi Comment on above: 3 month Follow Up / HSAT Start: 03-30-2024 End: 03-30-2024 Patient encounter procedure Audiology Comment on above: Follow Up Start: 03-11-2024 End: 03-11-2024 Patient encounter procedure 03/11/2024 8:30 AM EDT Office Visit Katrin Zaidi [address] [place] [address] Sid Anderson MD [address] [place] [address] 3 month Follow Up / HSAT [facility] Comment on above: 3 month Follow Up / HSAT Start: 03-09-2024 End: 03-09-2024 Patient encounter procedure 03/09/2024 8:30 PM EDT Office Visit [facility] [address] [facility] [place] [address] PSG - EXPEDITE RESULTS PER [facility] Comment on above: PSG - EXPEDITE RESULTS PER Start: 02-19-2024 End: 02-19-2024 Patient encounter procedure 02/19/2024 8:00 AM EDT Office Visit Katrin Zaidi [address] [place] [address] Narciso Melchor DO [address] [place] [address] 3 month Follow Up / HSAT Katrin Zaidi Comment on above: 3 month Follow Up / HSAT Start: 02-10-2024 End: 02-10-2024 Patient encounter procedure 02/10/2024 5:00 PM EDT Appointment RADIO CT SCAN [facility] [address] [facility] [place] [place] [address] SCAN [facility] Comment on above: ldct Start: 02-09-2024 End: 02-09-2024 Patient encounter procedure 02/09/2024 12:15 PM EDT Office Visit Urology [address] [place] [address] Thu Boss MD [address] [place] [address] cysto Urology Comment on above: cysto Start: 01-26-2024 End: 01-26-2024 Patient encounter procedure 01/26/2024 9:15 AM EDT Office Visit Otolaryngology [address] [address] Gely Gottlieb PA [address] [place] [address] Chronic sinitus and ear infections Otolaryngology Comment on above: Chronic sinitus and ear infections Start: 01-23-2024 End: 01-23-2024 Patient encounter procedure [facility] Comment on above: First time for this sceeening Start: 12-29-2023 End: 12-29-2023 Patient encounter procedure 12/29/2023 6:00 PM EDT Office Visit [facility] [address] [facility] [address] [address] [facility] Comment on above: HSAT Start: 12-24-2023 End: 12-24-2023 Patient encounter procedure 12/24/2023 10:00 AM EDT Office Visit Urology [address] [facility] [place] [address] Thu Boss MD [address] [facility] [place] [address] bladder wall thickening seen at [facility] records requested Urology Comment on above: bladder wall thickening seen at [facility] records requested Start: 08-25-2023 Behavioral Health Screening Behavioral Health Screening [facility] Start: 04-25-2023 Covid-19 Vaccine ( season) Covid-19 Vaccine ( season) [facility] Start: 04-25-2023 Influenza vaccination INFLUENZA (Season Ended) [facility] Start: 08-25-2022 DEPRESSION ASSESSMENT DEPRESSION ASSESSMENT [facility] Start: 08-11-2022 End: 10-11-2022 Comprehensive metabolic 2000 panel - Serum or Plasma COMP METABOLIC PANEL Lab Routine Seasonal allergic rhinitis due to pollen Expected: 08/11/2022, Expires: 10/11/2022 [facility] Work Phone: Comment on above: Expected: 08/11/2022, Expires: 3 Start: 07-12-2022 End: 09-11-2022 NITHYA BY IFA SCREEN [facility] Work Phone: Comment on above: Expected: 07/12/2022, Expires: 3 Start: 07-12-2022 End: 09-11-2022 Cyclic citrullinated peptide IgG Ab [Units/volume] in Serum or Plasma [facility] Work Phone: Comment on above: Expected: 07/12/2022, Expires: 3 Start: 07-12-2022 End: 09-11-2022 IgA [Mass/volume] in Serum or Plasma [facility] Work Phone: Comment on above: Expected: 07/12/2022, Expires: 3 Start: 07-12-2022 End: 09-11-2022 Rheumatoid factor [Units/volume] in Serum or Plasma [facility] Work Phone: Comment on above: Expected: 07/12/2022, Expires: 3 Start: 07-12-2022 End: 09-11-2022 SJOGREN ABS SSA/SSB [facility] Work Phone: Comment on above: Expected: 07/12/2022, Expires: 3 Start: 07-12-2022 End: 09-11-2022 Tissue transglutaminase Ab panel - Serum [facility] Work Phone: Comment on above: Expected: 07/12/2022, Expires: 3 Start: 04-25-2022 Influenza vaccination INFLUENZA (#1) [facility] Start: 12-17-2021 Pneumococcal Vaccine: 50+ (2 of 2 - PPSV23) Pneumococcal Vaccine: 50+ (2 of 2 - PPSV23) [facility] Start: 08-25-2021 DEPRESSION ASSESSMENT DEPRESSION ASSESSMENT [facility] Start: 02-11-2021 Pneumococcal vaccination Pneumococcal Vaccine (2 of 2 - PPSV23 or PCV20) [facility] Start: 04-13-2020 End: 04-13-2020 Office Visit 04/13/2020 Office Visit Primary Care Bautista Manzano MD [address] [place], [place] [id number] [facility] Start: 02-18-2020 Screening for malignant neoplasm of lung Lung Cancer Screening [facility] Start: 02-18-2020 Shingles Vaccine (1 of 2) Shingles Vaccine (1 of 2) [place], [place] Start: 02-18-2020 SHINGRIX VACCINE (1 of 2) SHINGRIX VACCINE (1 of 2) [facility] Start: 11-11-2019 End: 11-11-2019 Office Visit 11/11/2019 Office Visit Podiatry Thu Mosley DPM [address] [facility], [address] [place], [place] [id number] [facility] Start: 04-25-2019 Influenza vaccination Flu vaccine (#1) [place], [place] Start: 08-14-2017 PAP TESTING PAP TESTING [facility] Start: 08-14-2017 Screening for malignant neoplasm of cervix [facility] Start: 2015 COLOGUARD (FIT-DNA) COLOGUARD (FIT-DNA) [facility] Start: 2015 Colonoscopy COLONOSCOPY [facility] Start: 2015 COLORECTAL CANCER SCREENING COLORECTAL CANCER SCREENING [facility] Start: [address] COLONOGRAPHY [facility] Start: 2015 DIABETES SCREEN DIABETES SCREEN [facility] Start: 2015 FECAL OCCULT BLOOD FECAL OCCULT BLOOD [facility] Start: 2015 LIPID SCREEN LIPID SCREEN [facility] Start: 2015 Screening for malignant neoplasm of colon [facility] Start: 2015 SIGMOIDOSCOPY SIGMOIDOSCOPY [facility] Start: 12-27-2014 HPV TESTING HPV TESTING [facility] Start: 12-27-2014 Screening for malignant neoplasm of cervix HPV Testing [facility] Start: 07-02-2013 Mammography MAMMOGRAM [facility] Start: 07-02-2013 Screening for malignant neoplasm of breast Mammogram Screening [facility] Start: 1991 Cervical cancer screen Cervical cancer screen [place], [place] Start: 1989 Hepatitis B Vaccine (1 of 3 - 19+ 3-dose series) Hepatitis B Vaccine (1 of 3 - 19+ 3-dose series) [facility] Start: 1989 Urine microalbumin profile [facility] Start: 02-18-1988 Anxiety Screening Anxiety Screening [facility] Start: 02-18-1988 Depression Screening Depression Screening [facility] Start: 02-18-1988 HEPATITIS C SCREENING HEPATITIS C SCREENING [facility] Start: 02-18-1988 Hepatitis C screening Hepatitis C Screening [facility] Start: 02-18-1988 HIV SCREENING HIV SCREENING [facility] Start: 02-18-1988 HIV screening HIV Screening [facility] Start: 1985 HIV screen HIV screen [place], [place] Start: 1981 DTaP/Tdap/Td vaccine (1 - Tdap) DTaP/Tdap/Td vaccine (1 - Tdap) [place], [place] Start: 02-18-1976 PNEUMOCOCCAL (1 - PCV) PNEUMOCOCCAL (1 - PCV) [facility] Start: 1970 COVID-19 VACCINE (#1) COVID-19 VACCINE (#1) [facility] Start: 1970 HEPATITIS B (1 of 3 - 3-dose series) HEPATITIS B (1 of 3 - 3-dose series) [facility] End: 12-23-2024 Bacteria identified in Urine by Culture URINE CULTURE Microbiology Routine Recurrent UTI Once per month for 12 Occurrences starting 12/24/2023 until 12/23/2024 [facility] Work Phone: Comment on above: Once per month for 12 Occurrences starti ng 12/24/2023 until 12/23/2024 Bacteria identified in Urine by Culture URINE CULTURE Microbiology Routine Recurrent UTI 12/24/2023 12:41 PM EDT [facility] Cortisol [Mass/volum e] in Serum or Plasma [facility] End: 02-21-2025 CT Chest for screening WO contrast CT LUNG SCREEN WO IVCON Radiology Routine Tobacco use current 1 Occurrences starting 01/23/2024 until 02/21/2025 [facility] Work Phone: Comment on above: 1 Occurrences starting 01/23/2024 until 02/21/2025 End: 03-25-2025 CT Chest for screening WO contrast CT LUNG SCREEN WO IVCON Radiology Routine Tobacco use current 1 Occurrences starting 02/24/2024 until 03/25/2025 [facility] Work Phone: Comment on above: 1 Occurrences starting 02/24/2024 until 03/25/2025 End: 04-29-2025 CT Sinuses WO contrast CT SINUS WO IVCON Radiology Routine Chronic sinusitis, unspecified location 1 Occurrences starting 03/30/2024 until 04/29/2025 [facility] Work Phone: Comment on above: 1 Occurrences starting 03/30/2024 until 04/29/2025 End: 12-17-2024 HOME SLEEP APNEA TEST (HSAT) HOME SLEEP APNEA TEST (HSAT) Procedures Routine Tobacco use disorder 1 Occurrences starting 12/18/2023 until 12/17/2024 [facility] Work Phone: Comment on above: 1 Occurrences starting 12/18/2023 until 12/17/2024 MG Breast - bilatera l Screening [facility] End: 04-08-2025 MULTIPLE SLEEP LATENCY TEST MULTIPLE SLEEP LATENCY TEST Procedures Routine At risk for narcolepsy 1 Occurrences starting 04/08/2024 until 04/08/2025 [facility] Comment on above: 1 Occurrences starting 04/08/2024 until 04/08/2025 Patient Education [facility] Patient referral [facility] Work Phone: End: 01-07-2025 Polysomnogram POLYSOMNOGRAM (PSG) Procedures Routine ABBY (obstructive sleep apnea) 1 Occurrences starting 01/08/2024 until 01/07/2025 [facility] Work Phone: Comment on above: 1 Occurrences starting 01/08/2024 until 01/07/2025 End: 04-08-2025 Polysomnogram POLYSOMNOGRAM (PSG) Procedures Routine At risk for narcolepsy 1 Occurrences starting 04/08/2024 until 04/08/2025 [facility] Work Phone: Comment on above: 1 Occurrences starting 04/08/2024 until 04/08/2025 XR Lumbar spine 2 or 3 Views [facility] Immunizations Immunization Date Immunization Notes Care Provider Sheila cisneros 12-17-2020 pneumococcal conjuga te vaccine, [address] Bonifacio Bell MD Work Phone: [facility] Payers Date Payer Category Payer Unknown [id number] 2024 Unknown [id number] 2023 Private Health Insurance [id number] 2022 Private Health Insurance [id number] 2022 Unknown [employer] PPO [id number] 2022-Present [phone] [address] [place] [address] PPO [id number] 2022 Unknown [id number] 2020 Self-pay 2019 Unknown [employer] [facility] MEDICAID xxxxxxxxxxx 2019-06/23/2109 CLAIMS DEPARTMENT [address] [place] [address] xxxxxxxxxxx [id number] 2019 Unknown [id number] 2019 Private Health Insurance [facility] PL[facility] xxxxxxxxx 2019-Present [phone] [address] [place] [address] xxxxxxxxx [id number] 2019 Private Health Insurance [id number] 2018 Unknown [id number] 1970 Unknown [id number] 2.16.840.1.379418.3.579.2. 204 1970 Unknown [id number] 2.16.840.1.462018.3.579.2. 204 1970 Unknown [id number] 2.16.840.1.085688.3.579.2. 204 1970 Unknown [id number] 2.16.840.1.660237.3.579.2. 627 1970 Unknown [id number] 2.16.840.1.749472.3.579.2. 627 1970 Unknown [id number] 2.16.840.1.954783.3.579.2. 627 1970 Unknown [id number] 2.16.840.1.642217.3.579.2. 627 1970 Unknown [id number] 2.16.840.1.753314.3.579.2. 627 1970 Unknown [id number] 2.16.840.1.918511.3.579.2. 627 1970 Unknown [id number] 2.16.840.1.075163.3.579.2. 627 1970 Unknown [id number] 2.16.840.1.244803.3.579.2. 627 Unknown [id number] 2.16.840.1.512005.3.579.2. 921 Unknown [id number] 2.16.840.1.351556.3.579.2. 921 Unknown Blackboard [id number] Unknown Blackboard [id number] Unknown [id number] 2.16.840.1.111528.3.579.2. 630 Unknown [id number] 2.16.840.1.017460.3.579.2. 630 Unknown [id number] 2.16.840.1.821925.3.579.2. 630 Unknown [id number] 2.16.840.1.876835.3.579.2. 462 Unknown [id number] 2.16.840.1.201992.3.579.2. 462 Unknown [id number] 2.16.840.1.099756.3.579.2. 462 Unknown [id number] 2.16.840.1.833677.3.579.2. 462 Unknown [id number] 2.16.840.1.981647.3.579.2. 462 Unknown [id number] 2.16.840.1.577865.3.579.2. 462 Unknown [id number] 2.16.840.1.866724.3.579.2. 462 Unknown [id number] 2.16.840.1.460626.3.579.2. 462 Unknown [id number] 2.16.840.1.339610.3.579.2. 462 Unknown [id number] 2.16.840.1.195567.3.579.2. 462 Unknown [id number] 2.16.840.1.347974.3.579.2. 462 Unknown [id number] 2.16.840.1.426444.3.579.2. 462 Unknown [id number] 2.16.840.1.269724.3.579.2. 462 Unknown [id number] 2.16.840.1.357347.3.579.2. 462 Unknown [id number] 2.16.840.1.319404.3.579.2. 462 Unknown [id number] 2.16.840.1.143521.3.579.2. 462 Unknown [id number] 2.16.840.1.728997.3.579.2. 462 Social History Date Type Detail Facility Unknown if ever smoked [facility] Start: 10-11-2019 End: 04-16-2024 Tobacco smoking status NHIS [facility] Start: 10-24-1996 End: 10-25-2023 History of tobacco use Current smoker [facility]ELASQUEZ Start: 10-24-1996 End: 10-25-2023 History of tobacco use Cigarette Sm[facility] Start: 10-11-2019 End: 01-23-2024 Cigarettes smoked current (pack per day) - Reported [facility] Work Phone: Start: 1970 [facility] Start: 01-03-2017 Current Every Day Smoker [facility] Start: 12-30-2016 No History [facility] Start: 1970 Sex Assigned At Female [facility] Start: 12-10-2011 End: 01-19-2025 Tobacco smoking status NHIS Smokes tobacco daily [facility] Work Phone: Start: 12-10-2011 End: 04-16-2024 Tobacco use and exposure Smokeless tobacco non-user [facility] Work Phone: Start: 04-09-2022 End: 01-20-2025 Alcohol intake Current non-drinker of alcohol (finding) [facility] Start: 03-14-2011 End: 10-17-2022 Tobacco Comment Started smoking age 26 [facility] Start: 07-02-2022 End: 07-12-2022 Exposure to SARS-CoV-2 (event) Not sure [facility] Start: 10-25-2023 Tobacco smoking status Heavy t obacco smoker (finding) [facility] Start: 10-17-2022 End: 01-23-2024 Tobacco use panel [facility] Work Phone: National Score (1-10 0), lower number is lower risk 82 [facility] Start: 11-28-2024 End: 12-15-2024 Sex Female (finding) [facility] Has the electric, [employer] s, 51 Give, or water company threatened to shut off services in your home in past 12Mo No [facility] Work Phone: (I/We) worried wheth er (my/our) food would run out before (I/we) got money to buy more. Never true [facility] Functional Status Date Assessment Result Facility 03-03-2024 Functional Status ID band on, Call device within reach, Bed in low position, Wheels locked, Upper/Half-Length side-rails up, Phone within reach, Bedside Cart Locked, Visitor at bedside, Safety level maintained [facility] 10-27-2023 Functional Status Personal ADL [facility] 10-27-2023 Functional Status [facility] 10-27-2023 Functional Status [facility] 10-26-2023 Functional Status [facility] 10-26-2023 Functional Status [facility] 10-26-2023 Functional Status Sequential Com pression Device bilateral knee high applied/on [facility] 10-26-2023 Functional Status Breakfast Percent 0 l [facility] 10-26-2023 Functional Status Assistive Device None [facility] 10-25-2023 Functional Status [facility] Mental Status Date Assessment Result Facility 11-28-2024 Cognitive function Voice/Name [facility] Work Phone: 03-03-2024 Mental Status Oriented x 4 [facility] 10-27-2023 Mental Status Orientation Oriented x 4 [facility] 10-27-2023 Mental Status [facility] 10-27-2023 Mental Status [facility] Clinical Notes 07-11-2022 to 01-20-2025 Patient InstructionsHolden Lindsey APRN.[facility] - 01/20/2025 3:44 PM EDT Note Date & Type Note Facility 01-20-2025 Instructions Holden Lindsey APRN.[facility] - 01/20/2025 3:50 PM EDT 1. Acute left-sided low back pain with left-sided sciatica (M54.42) - Onset of symptoms approximately two weeks ago, with pain radiating into the left hip and buttock, exacerbated in the morning and early afternoon. - Physical examination reveals tenderness in the lower back and positive straight leg raise test on the left side, indicating sciatic nerve involvement. - Differential diagnosis includes sciatic nerve inflammation secondary to disc inflammation. - Initiated treatment with a corticosteroid to reduce inflammation and a muscle relaxant to alleviate muscle tension and pain. Advised to take the muscle relaxant at bedtime due to potential drowsiness. - Educated on the use of ice packs instead of heat to reduce inflammation; instructed to apply ice to the middle and lower back, especially before bedtime. - Provided patient with back exercises to be initiated once acute pain subsides, aimed at core strengthening to prevent recurrence. - Discussed that if symptoms do not improve with current treatment or recur after completion, follow-up with primary care physician is necessary for further evaluation, which may include imaging studies such as X-ray or MRI and potential referral to physical therapy. - Patient understands and agrees with the treatment plan. - Start the prescribed oral steroid to reduce inflammation and relieve your sciatic nerve pain; pecan picker your prescription at the pharmacy. - Take the prescribed muscle relaxer at bedtime as directed; it may cause drowsiness but will help relax your back muscles and improve sleep. - Apply a gel ice pack to your mid- and lower back when you go to bed and as needed during the day; avoid using heat, as it can increase inflammation. - Begin the core-strengthening back exercises provided once your pain has eased; these exercises can help prevent future flare-ups. - A work-release note has been printed for you to give to your employer. - If your pain does not improve with this treatment or returns after you finish the medications, contact your primary care provider for further evaluation, possible physical therapy, or imaging. documented in this encounter [facility] 01-20-2025 Note HNO ID: [id number] Author: HOLDEN LINDSEY APRN.[facility] Service: ? Author Type: Nurse Practitioner Type: Progress Notes Filed: 01/20/2025 15:51 Note Text: [facility] Subjective Holden Childers is a 54 year old female. Patient presents with: Pain: Left lower back pain, radiating into hip and Left leg x 2 weeks HPI Lower Back Pain: - Chronic back pain, with acute exacerbation x2 weeks. - Pain radiates into the left hip and occasionally to the top of the left leg. - Pain severity rated as 5/10 today. - Worse in the morning upon waking and early afternoon. - Using Tylenol with some relief; previously used ibuprofen but avoids it due to past anticoagulant therapy. - Occasionally uses a heating pad; has not used ice. - Denies known trauma, falls, or accidents. - Denies numbness or tingling in feet or legs. Review of Systems Constitutional: Negative for chills and fever. Cardiovascular: Negative. Gastrointestinal: Negative. Musculoskeletal: Positive for back pain. Negative for gait problem. Skin: Negative for color change and rash. Neurological: Negative for tremors, weakness and numbness. Neck: (+) pain worsening with movement Musculoskeletal: (+) lower back pain radiating to left hip, (+) muscle tightness Neurological: (-) numbness, (-) tingling Objective BP 121/80 Pulse 81 Temp 36.7 ?C (98.1 ?F) Resp 18 Wt 61 kg (134 lb 7.7 oz) LMP 04/16/2010 SpO2 99% BMI 22.38 kg/m? PAST MEDICAL HISTORY Diagnosis Date - Abnormal Pap smear 09/2008 LGSIL and Positive HPV - Abnormal Pap smear 04/2009 HGSIL - Encounter for insertion or removal of intrauterine contraceptive device 12/13/2008 Mirena - Endometriosis - Fibromyalgia 08/14/2012 - Hypertension - Palpitations - S/P SHREE (total abdominal hysterectomy) 05/15/2010 PAST SURGICAL HISTORY Procedure Laterality Date - APPENDECTOMY - CONIZATION CERVIX W/WO DANDC RPR ELTRD EXC 06/21/2009 (LEEP) - INSERT INTRAUTERINE DEVICE 12/13/2008 Mirena - IUD REMOVAL 03/22/2010 - LAPS ABD PRTMANDOMENTUM DX W/WO SPEC BR/WA SPX Laparoscopy - TONSILLECTOMY PRIMARY/SECONDARY Tonsillectomy - TOTAL ABDOMINAL HYSTERECT W/WO RMVL TUBE OVARY 05/15/2010 Dr. Dodd; Dysplasia, Metrorrhagia, Dysmenorrhea - TRANSV CAROTID STENT PLACEMT 10/25/2023 [place] - VAGINOSCOPY 02/01/2010 ALLERGIES Codeine MEDICATIONS - busPIRone (BUSPAR) 7.5 mg tablet Take 7.5 mg by mouth two times a day. - losartan (COZAAR) 25 mg tablet Take 1 tablet by mouth once daily. - aspirin 81 mg chewable tablet Take 1 tablet by mouth once daily. Patient should start on July 22, 2024. - cholecalciferol (VITAMIN D-3) 5,000 unit tab Take 5,000 Units by mouth once daily. - DULoxetine (CYMBALTA) 30 mg capsule Take 1 capsule by mouth once daily. - cyanocobalamin (VITAMIN B-12) 500 mcg tablet Take by mouth. - metoprolol succinate ER (TOPROL XL) 50 mg 24 hr tablet - atorvastatin (LIPITOR) 40 mg tablet Take 1 tablet by mouth every afternoon. - fluticasone propionate (FLONASE NASAL) Use in the nose. - magnesium oxide (MAG-OX) 400 mg (241.3 mg magnesium) tablet Take 1 tablet by mouth twice daily. - montelukast (SINGULAIR) 10 mg tablet Take 1 tablet by mouth daily at bedtime. - ticagrelor (BRILINTA) 90 mg tablet Take 1 tablet by mouth two times a day. Patient should start on July 24, 2024. (Patient not taking: Reported on 01/20/2025) - pantoprazole DR (PROTONIX) 40 mg tablet Take 1 tablet by mouth two times a day before meals at 6 am and 4 pm. (Patient not taking: Reported on 01/20/2025) - nicotine (NICODERM) 14 mg/24 hr Apply 1 Patch as directed once daily for 21 days. - azelastine 0.1% nasal spray Use 1 [place] in each nostril two times a day. - ketoconazole (NIZORAL) 2 % cream APPLY TOPICALLY TO THE AFFECTED AREA DAILY - LYSINE ORAL Take by mouth. (Patient not taking: Reported on 07/19/2024) - cyclobenzaprine (FLEXERIL) 5 mg tablet Take 1 tablet by mouth daily at bedtime. (Patient not taking: Reported on 01/20/2025) FAMILY HISTORY Problem Relation Age of Onset - Hypertension Mother - Coronary Artery Disease Maternal Grandfather - Coronary Artery Disease Paternal Grandfather Social History Tobacco Use - Smoking status: Former Current packs/day: 0.00 Average packs/day: 0.8 packs/day for 27.0 years (20.3 ttl pk-yrs) Types: Cigarettes Start date: 10/24/1996 Quit date: 10/25/2023 Years since quittin.2 - Smokeless tobacco: Never - Tobacco comments: Started smoking age 26 Vaping Use - Vaping status: Some Days - Substances: Nicotine, Flavoring Substance Use Topics - Alcohol use: No - Drug use: No Physical Exam Vitals and nursing note reviewed. Constitutional: General: She is not in acute distress. Appearance: Normal appearance. She is not ill-appearing. Cardiovascular: Rate and Rhythm: Normal rate and regular rhythm. Heart sounds: Normal heart sounds. Pulmonary: Effort: Pulmonary effo (more content not included)... [facility] 01-20-2025 History of Presen t illness Narrative [facility] Subjective Holden Childers is a 54 year old female. Patient presents with: Pain: Left lower back pain, radiating into hip and Left leg x 2 weeks HPI Lower Back Pain: - Chronic back pain, with acute exacerbation x2 weeks. - Pain radiates into the left hip and occasionally to the top of the left leg. - Pain severity rated as 5/10 today. - Worse in the morning upon waking and early afternoon. - Using Tylenol with some relief; previously used ibuprofen but avoids it due to past anticoagulant therapy. - Occasionally uses a heating pad; has not used ice. - Denies known trauma, falls, or accidents. - Denies numbness or tingling in feet or legs. Review of Systems Constitutional: Negative for chills and fever. Cardiovascular: Negative. Gastrointestinal: Negative. Musculoskeletal: Positive for back pain. Negative for gait problem. Skin: Negative for color change and rash. Neurological: Negative for tremors, weakness and numbness. Neck: (+) pain worsening with movement Musculoskeletal: (+) lower back pain radiating to left hip, (+) muscle tightness Neurological: (-) numbness, (-) tingling Objective BP 121/80 Pulse 81 Temp 36.7 C (98.1 F) Resp 18 Wt 61 kg (134 lb 7.7 oz) LMP 04/16/2010 SpO2 99% BMI 22.38 kg/m PAST MEDICAL HISTORY Diagnosis Date Abnormal Pap smear 09/2008 LGSIL and Positive HPV Abnormal Pap smear 04/2009 HGSIL Encounter for insertion or removal of intrauterine contraceptive device 12/13/2008 Mirena Endometriosis Fibromyalgia 08/14/2012 Hypertension Palpitations S/P SHREE (total abdominal hysterectomy) 05/15/2010 PAST SURGICAL HISTORY Procedure Laterality Date APPENDECTOMY CONIZATION CERVIX W/WO D&C RPR ELTRD EXC 06/21/2009 (LEEP) INSERT INTRAUTERINE DEVICE 12/13/2008 Mirena IUD REMOVAL 03/22/2010 LAPS ABD PRTM&OMENTUM DX W/WO SPEC BR/WA SPX Laparoscopy TONSILLECTOMY PRIMARY/SECONDARY <AGE 12 Tonsillectomy TOTAL ABDOMINAL HYSTERECT W/WO RMVL TUBE OVARY 05/15/2010 Dr. Dodd; Dysplasia, Metrorrhagia, Dysmenorrhea TRANSV CAROTID STENT PLACEMT 10/25/2023 [place] VAGINOSCOPY 02/01/2010 ALLERGIES Codeine MEDICATIONS busPIRone (BUSPAR) 7.5 mg tablet Take 7.5 mg by mouth two times a day. losartan (COZAAR) 25 mg tablet Take 1 tablet by mouth once daily. aspirin 81 mg chewable tablet Take 1 tablet by mouth once daily. Patient should start on July 22, 2024. cholecalciferol (VITAMIN D-3) 5,000 unit tab Take 5,000 Units by mouth once daily. DULoxetine (CYMBALTA) 30 mg capsule Take 1 capsule by mouth once daily. cyanocobalamin (VITAMIN B-12) 500 mcg tablet Take by mouth. metoprolol succinate ER (TOPROL XL) 50 mg 24 hr tablet atorvastatin (LIPITOR) 40 mg tablet Take 1 tablet by mouth every afternoon. fluticasone propionate (FLONASE NASAL) Use in the nose. magnesium oxide (MAG-OX) 400 mg (241.3 mg magnesium) tablet Take 1 tablet by mouth twice daily. montelukast (SINGULAIR) 10 mg tablet Take 1 tablet by mouth daily at bedtime. ticagrelor (BRILINTA) 90 mg tablet Take 1 tablet by mouth two times a day. Patient should start on July 24, 2024. (Patient not taking: Reported on 01/20/2025) pantoprazole DR (PROTONIX) 40 mg tablet Take 1 tablet by mouth two times a day before meals at 6 am and 4 pm. (Patient not taking: Reported on 01/20/2025) nicotine (NICODERM) 14 mg/24 hr Apply 1 Patch as directed once daily for 21 days. azelastine 0.1% nasal spray Use 1 [place] in each nostril two times a day. ketoconazole (NIZORAL) 2 % cream APPLY TOPICALLY TO THE AFFECTED AREA DAILY LYSINE ORAL Take by mouth. (Patient not taking: Reported on 07/19/2024) cyclobenzaprine (FLEXERIL) 5 mg tablet Take 1 tablet by mouth daily at bedtime. (Patient not taking: Reported on 01/20/2025) FAMILY HISTORY Problem Relation Age of Onset Hypertension Mother Coronary Artery Disease Maternal Grandfather Coronary Artery Disease Paternal Grandfather Social History Tobacco Use Smoking status: Former Current packs/day: 0.00 Average packs/day: 0.8 packs/day for 27.0 years (20.3 ttl pk-yrs) Types: Cigarettes Start date: 10/24/1996 Quit date: 10/25/2023 Years since quittin.2 Smokeless tobacco: Never Tobacco comments: Started smoking age 26 Vaping Use Vaping status: Some Days Substances: Nicotine, Flavoring Substance Use Topics Alcohol use: No Drug use: No Physical Exam Vitals and nursing note reviewed. Constitutional: General: She is not in acute distress. Appearance: Normal appearance. She is not ill-appearing. Cardiovascular: Rate and Rhythm: Normal rate and regular rhythm. Heart sounds: Normal heart sounds. Pulmonary: Effort: Pulmonary effort is normal. No respiratory distress. Breath sounds: Normal breath sounds. No wheezing or rales. Musculoskeletal: General: No signs of injury. Lumbar back: Tenderness present. No swelling, edema, signs of trauma or bony tenderness. Positive left straight leg raise test. Negative right straight leg raise test. Skin: General: Skin is warm and dry. Findings: No bruising, erythema or rash. Neurological: General: No focal deficit present. Mental Status: She is alert. Sensory: No sensory deficit. Motor: No weakness. Gait: Gait normal. General: No acute distress. CV: Normal heart sounds. Back: Mild tenderness to palpation in lower back; positive straight leg raise on left, negative on right. MSK/Ext: Normal strength and sensation in lower extremities. {1. Acute left-sided low back pain with left-sided sciatica (M54.42) - Onset of symptoms approximately two weeks ago, with pain radiating into the left hip and buttock, exacerbated in the morning and early afternoon. - Physical examination reveals tenderness in the lower back and positive straight leg raise test on the left side, indicating sciatic nerve involvement. - Differential diagnosis includes sciatic nerve inflammation secondary to disc inflammation. - Initiated treatment with a corticosteroid to reduce inflammation and a muscle relaxant to alleviate muscle tension and pain. Advised to take the muscle relaxant at bedtime due to potential drowsiness. - Educated on the use of ice packs instead of heat to reduce inflammation; instructed to apply ice to the middle and lower back, especially before bedtime. - Provided patient with back exercises to be initiated once acute pain subsides, aimed at core strengthening to prevent recurrence. - Discussed that if symptoms do not improve with current treatment or recur after completion, follow-up with primary care physician is necessary for further evaluation, which may include imaging studies such as X-ray or MRI and potential referral to physical therapy. - Patient understands and agrees with the treatment plan. - Follow-up with your PCP in 3-5 days if symptoms have not improved or sooner if symptoms worsen - Discussed red flags and need for immediate medical evaluation if any occur. - Discussed supportive care treatment with fluids, rest and analgesia. - Discussed expected course of illness Holden Lindsey APRN.DIRECTOR PRODUCT and Recording using [employer] software for draft documentation of the visit was discussed with the patient/authorized access service representative; all questions welcomed and answered. Patient/authorized access service representative agreed to proceed Disposition The patient was discharged. Procedures documented in this encounter [facility] 11-28-2024 Radiology Diagnostic study note [facility] Imaging Services [address] [place] [id number] Chest PA and Lateral MR#: [id number] Acct: [id number] Name: HOLDEN CHILDERS Rep #: [id number] : 1970 F 54 From: Jan Latham DO PCP: Dr. Bonifacio Bell MD Status: R EG ER Study:Chest PA and Lateral Date of Exam: 11/28/24 Exam# [id number] Ordering Dr: Laurel De La Torre PROCEDURE: CHEST PA AND LATERAL 11/28/2024 REASON FOR EXAM: CHEST PAIN TECHNIQUE: Frontal and lateral views of the chest. COMPARISON: None FINDINGS: Hardware: None Heart: The heart size is normal. Mediastinum: The mediastinal contour is unremarkable. Lungs: The lungs are clear. Bones: The bones are unremarkable. RAD/Chest PA and Lateral IMPRESSION: NO ACUTE FINDINGS. Reading Location: [facility] CC: Dr. Bonifacio Bell MD; MINERVA Martinez ~ Chemical Checker: Signed [facility] 11-15-2024 Evaluation note Diagnosis Onset Date Resolution Shingles acute November 15 2:16pm [facility] Work Phone: 1(779) 214-736503-24-2025 Evaluation note* Diagnosis Onset Date Resolution Status Admit Date Shingles acute November 15 2:16pm Fatigue acute December 10 7:26am Anxiety and depression chronic Ap ril 2024 7:26am CAD (coronary artery disease) chroni c December 10, 2024 7:26am Fibromyalgia chronic December 10, 2024 7:26am [facility] Work Phone: 1(923) 677-800103-24-2025 Evaluation note* Diagnosis Onset Date Resolution Status Admit Date Shingles acute November 15 2:16pm Fatigue acute December 10 7:26am Anxiety and depression chronic Ap ril 2024 7:26am CAD (coronary artery disease) chroni c December 10, 2024 7:26am Fibromyalgia chronic December 10, 2024 7:26am Anxiety and depression chronic Ma y 2024 8:44am Atrophic vaginitis noneactive January 192024 8:44am Routine gynecological examination noneactive January 19, 2025 8 :44am Chronic low back pain chronic Rik e 2024 12:16pm [facility] Work Phone: 1(212) 710-221211-27-2024 NoteHNO ID: [id number] Author: MANDO THOMAS APRN.DIRECTOR PRODUCT Service: Critical Care Author Type: Nurse Practitioner Type: Progress Notes Filed: 07/29/2024 22:38 Note Text: Documentation Query Please clarify sepsis diagnosis {Please select the appropriate option:[id number]:: Sepsis Ruled In This document will become part of the patient's medical record.[facility]11-27-2024 NoteHNO ID: [id number] Author: NEELIMA BRAGA MD Service: Critical Care Author Type: Physician Type: Plan of Care Filed: 07/31/2024 12:32 Note Text: Documentation Query Please clarify sepsis diagnosis Other Suspected Sepsis secondary to aspiration Pneumonia This document will become part of the patient's medical record.[facility]11-27-2024 NoteHNO ID: [id number] Author: ROBERTO GRANADOS, PhD Service: Psychology Author Type: Psychologist Type: Progress Notes Filed: 07/21/2024 13:07 Note Text: PSYCHOLOGY PROGRESS NOTE SERVICE DATE: 07/21/2024 SERVICE TIME: 1:02 PM Subjective I met with the patient today. She was cooperative and pleasant. Her affect was bright. Her mood was stable. Her behavior was appropriate. Her conversation was coherent and relevant. There were no signs of psychological distress. We discussed her suicide attempt. She expressed regrets over what she did. She said it was not necessary but she discussed some of the stressors she had experienced. She gets along well with the ex dqoofu-hd-foi with whom she resides. They had visited her during her stay here. The patient asked me about a place where she could receive counseling. She currently lives in [place] and I informed her that the counseling center would be a good place to follow up with. Current Facility-Administered Medications Medication Dose Route Frequency NaCl 0.9% iv flush bag 20 mL INTRAVENOUS PRN levalbuterol 0.63 mg nebulizer solution (XOPENEX) 0.63 mg INHALATION q 6 H PRN ondansetron 4 mg tab(s) (ZOFRAN) 4 mg ORAL q 6 H PRN Or ondansetron (PF) 4 mg injection (ZOFRAN) 4 mg INTRAVENOUS q 6 H PRN scopolamine (delivers 1 mg over 3 days) 1 Patch (TRANSDERM-SCOP) 1 Patch TRANSDERMAL q 72 HR And scopolamine - REMOVE PATCH OTHER q 72 HR And scopolamine - VERIFY patch OTHER q 8 H uozswskoyrCXWDG-ssxsgq-uodwnhliu 10 mL oral liquid (BMX 1:1:1) 10 mL ORAL q 4 H PRN hydrOXYzine pamoate 50 mg cap(s) (VISTARIL) 50 mg ORAL q 6 H PRN DULoxetine 30 mg cap(s) (CYMBALTA) 30 mg ORAL DAILY nicotine 14 mg/24 hr 1 Patch (NICODERM) 1 Patch TRANSDERMAL DAILY And nicotine -- REMOVE patch OTHER DAILY And nicotine - verify patch OTHER q [address] 40 mg tab(s) (PROTONIX) 40 mg ORAL BID AC (0600/1600) Objective The patient denied any intention to harm herself. Her affect and her mood as well as her behavior were all quite stable. There were no signs of psychosis or psychological distress noted. The patient expressed regret over what she did and informed me that she was planning on continuing to wean her medications. She is currently on Cymbalta and she is tolerating it well. The patient will be going to the counseling center and was told to continue in treatment. The patient responded well to stress management counseling today. I also discussed with the patient the options she had in case she felt in psychological distress including calling the crisis center, coming to the emergency room, or if the situation is less serious talking to family members. I informed her that she could at any time use her phone in order to get in touch with people who could help her address any strengths she might be experiencing. Since she is going to be seeing a therapist at the counseling center, that facility would be a great resource for her if needed. CONCLUSIONS/RECOMMENDATIONS: The patient was diagnosed with major depressive disorder recurrent severe during her stay here. She was also diagnosed with suicide attempt. She was also diagnosed with a generalized anxiety. Currently the patient's condition is stable. The patient is not in need of inpatient psychiatric treatment. The patient was medically cleared. The patient can return home today. SIGNATURE: Roberto Gagnon, PhD PATIENT NAME: Holden Childers DATE: July 21, 2024 TIME: 1:02 PM PAGER: Attestation Note The majority of visit was spent counseling and/or coordinating care for the patient. Total time spent was 30 minutes[facility]24 NoteHNO ID: [id number] Author: TYESHA DAI MD Service: Hospital Medicine Author Type: Physician Type: Progress Notes Filed: 07/21/2024 10:31 Note Text: DEPARTMENT OF HOSPITAL MEDICINE PROGRESS NOTE SERVICE DATE: 07/20/2024 SERVICE TIME: 10:48 AM CHIEF COMPLAINT: AMS/ coffee ground emesis SUBJECTIVE: Pt seen and examined. I am doing well She is awaited for DC planning, medically she has been stable. No bleeding Assessment/Plan Hospital Medicine/Primary Attending: Tyesha Dai MD ICU transfer- summary 54 -year-old female with history of hysterectomy, hypertension, fibromyalgia, endometriosis was transferred from [facility] on 07/16/2024 with unknown drug overdose. It was presumed that she may have taken Lyrica. On review of chart it appears she had a coffee-ground emesis 3 episodes associated with abdominal distention and pain, patient was confused. Patient was admitted to critical care unit with GI bleeding with hematemesis melena leading to acute blood loss anemia in the background of current use of long-term anticoagulation. Additional diagnosis of sepsis metabolic acidosis pneumonitis were also suspected. Patient is having additional medical history of hypertension, anxiety, fibromyalgia, history of coronary artery angioplasty with RCA stent and previous history of AZ. In ICU patient was given octreotide/PPI infusion GI were consulted patient was given 2 units of PRBC and 1 unit of platelets. EGD showed small hiatal hernia with multiple clean-based ulcers with no high risk for bleeding stigmata. GI recommended continue PPI twice a day in the hospital followed by twice a day orally to continue for 2 months on discharge, to resume aspirin 3 days while Brilinta in 5 days. EGD was done on 07/19/2024 Due to this patient will hold aspirin-until 07/22 and Brilinta until 07/24 smoking cessation and THC stop advised.No NSAIDS. GI signed off on 07/19/2025. in the Critical care pt was seen by Psychiatrist and were diagnosed to have Major depression.Cymbalata started for anxiety-depression. UGIB Acute blood loss anemia sp PRBC-Platelets Nonbleeding stomach Ulcers-Multiple. Now asymptomatic clinically Resolved Stable Hemodynamic Monitor Hb May consider IV iron IV PPI to PO PPI CAD Due recent GI bleeding and Post EGD rec per GI : to this patient will hold aspirin-until 07/22 and Brilinta until 07/24 Major depression ?suicidal attempt with Drug OD ? Lyrica Now on Cymbalta Medically clear for DC plan to Psyche facility . Tobacco addiction SMOKING CESSATION COUNSELING Smoking cessation methods including Nicotine Replacement Therapies and Behavior Modification were discussed with the patient and assistance offered. The medical conditions adversely affected by cigarette use include:COPD, Emphysema, Asthma, and Lung Cancer. The patient is currently ready to quit. I personally spent 22 minutes in counseling. The time spent in smoking cessation counseling is exclusive of any other counseling during this visit. THC Pneumonitis OBJECTIVE: PHYSICAL EXAM: BP 122/76 Pulse 95 Temp (Src) 98.4 (Oral) Resp 16 Ht 5' 5 (1.65m) Wt 124 lb 5.4 oz (56.4kg) SpO2 98% LMP 04/16/2010 BMI 20.69 kg/(m2). O2 Therapy: Room Air General - AANDOx3, NAD, Calm CV - RRR S1 S2, No M/R/G RESP - CTA B/L No wheezes, ronchi, rales ABD - soft, NT, ND +BS EXT - no gross joint deformity, no clubbing, cyanosis, edema NEURO - CN II-XII grossly intact, no focal deficits MEDICATIONS: Current Facility-Administered Medications Medication Dose Route Frequency NaCl 0.9% iv flush bag 20 mL INTRAVENOUS PRN levalbuterol 0.63 mg nebulizer solution (XOPENEX) 0.63 mg INHALATION q 6 H PRN ondansetron 4 mg tab(s) (ZOFRAN) 4 mg ORAL q 6 H PRN Or ondansetron (PF) 4 mg injection (ZOFRAN) 4 mg INTRAVENOUS q 6 H PRN scopolamine (delivers 1 mg over 3 days) 1 Patch (TRANSDERM-SCOP) 1 Patch TRANSDERMAL q 72 HR And scopolamine - REMOVE PATCH OTHER q 72 HR And scopolamine - VERIFY patch OTHER q 8 H nptavvastsBLAIN-zvsocf-xbhdlqkch 10 mL oral liquid (BMX 1:1:1) 10 mL ORAL q 4 H PRN hydrOXYzine pamoate 50 mg cap(s) (VISTARIL) 50 mg ORAL q 6 H PRN DULoxetine 30 mg cap(s) (CYMBALTA) 30 mg ORAL DAILY nicotine 14 mg/24 hr 1 Patch (NICODERM) 1 Patch TRANSDERMAL DAILY And nicotine -- REMOVE patch OTHER DAILY And nicotine - verify patch OTHER q [address] 40 mg tab(s) (PROTONIX) 40 mg ORAL BID AC (0600/1600) DATA: Diagnostic tests reviewed for today's visit: CBC: Recent Labs 07/21/24 0104 HB 8.5* Labs: CBC: Recent Labs 07/21/24 0104 07/20/24 1738 07/20/24 0906 07/20/24 0209 07/19/24 1658 07/19/24 0834 07/19/24 0210 07/18/24 1714 07/18/24 0835 07/18/24 0416 07/17/24 0904 07/17/24 0547 07/16/24 2228 07/16/24 1643 WBC -- -- -- -- -- -- 5.32 -- -- 6.83 -- 7.69 -- 18.51* HB 8.5* 9.5* 9.2* 9.6* 8.8* 7.2* 7.2 (more content not included)...[facility]11-27-2024 NoteHNO ID: [id number] Author: NINA JUSTIN RN Service: ? Author Type: Registered Nurse Type: Progress Notes Filed: 07/21/2024 03:46 Note Text: ASSUMED PT CARE AT 0010, AFTER REPORT RECEIVED. OBSERVED PT WAS RESTING QUIETLY AT THE TIME WITH EYES CLOSED. PT AWAKE AT THIS TIME, A/O X4. ABLE TO MAKE NEEDS KNOWN. INDUSTRIAL TECHNICIAN REMAINED AT PT BEDSIDE AT ALL TIMES. PT DENIES ANY SUICIDE OR HOMICIDAL IDEATION SO FAR THIS SHIFT. PT BREATHING EASY. CALL LIGHT IN PT REACH. UP TO BATHROOM AT INTERVAL WITHOUT ANY DIFFICULTY. WILL CONTINUE CLOSE MONITORING AND CAREAd[facility]11-26-2024 NoteHNO ID: [id number] Author: TYESHA DAI MD Service: Hospital Medicine Author Type: Physician Type: Progress Notes Filed: 07/20/2024 11:19 Note Text: DEPARTMENT OF HOSPITAL MEDICINE PROGRESS NOTE SERVICE DATE: 07/20/2024 SERVICE TIME: 10:48 AM CHIEF COMPLAINT: AMS/ coffee ground emesis SUBJECTIVE: Pt seen and examined. I am doing well Assessment/Plan Hospital Medicine/Primary Attending: Tyesha Dai MD ICU transfer- summary 54 -year-old female with history of hysterectomy, hypertension, fibromyalgia, endometriosis was transferred from [facility] on 07/16/2024 with unknown drug overdose. It was presumed that she may have taken Lyrica. On review of chart it appears she had a coffee-ground emesis 3 episodes associated with abdominal distention and pain, patient was confused. Patient was admitted to critical care unit with GI bleeding with hematemesis melena leading to acute blood loss anemia in the background of current use of long-term anticoagulation. Additional diagnosis of sepsis metabolic acidosis pneumonitis were also suspected. Patient is having additional medical history of hypertension, anxiety, fibromyalgia, history of coronary artery angioplasty with RCA stent and previous history of AZ. In ICU patient was given octreotide/PPI infusion GI were consulted patient was given 2 units of PRBC and 1 unit of platelets. EGD showed small hiatal hernia with multiple clean-based ulcers with no high risk for bleeding stigmata. GI recommended continue PPI twice a day in the hospital followed by twice a day orally to continue for 2 months on discharge, to resume aspirin 3 days while Brilinta in 5 days. EGD was done on 07/19/2024 Due to this patient will hold aspirin-until 07/22 and Brilinta until 07/24 smoking cessation and THC stop advised.No NSAIDS. GI signed off on 07/19/2025. in the Critical care pt was seen by Psychiatrist and were diagnosed to have Major depression.Cymbalata started for anxiety-depression. UGIB Acute blood loss anemia sp PRBC-Platelets Nonbleeding stomach Ulcers-Multiple. Now asymptomatic clinically Resolved Stable Hemodynamic Monitor Hb May consider IV iron IV PPI to PO PPI CAD Due recent GI bleeding and Post EGD rec per GI : to this patient will hold aspirin-until 07/22 and Brilinta until 07/24 Major depression ?suicidal attempt with Drug OD ? Lyrica Now on Cymbalta Tobacco addiction SMOKING CESSATION COUNSELING Smoking cessation methods including Nicotine Replacement Therapies and Behavior Modification were discussed with the patient and assistance offered. The medical conditions adversely affected by cigarette use include:COPD, Emphysema, Asthma, and Lung Cancer. The patient is currently ready to quit. I personally spent 22 minutes in counseling. The time spent in smoking cessation counseling is exclusive of any other counseling during this visit. THC Pneumonitis OBJECTIVE: PHYSICAL EXAM: BP 123/76 Pulse 91 Temp (Src) 99.1 (Oral) Resp 16 Ht 5' 5 (1.65m) Wt 138 lb 14.2 oz (63.0kg) SpO2 100% LMP 04/16/2010 BMI 23.11 kg/(m2). O2 Therapy: Room Air General - AANDOx3, NAD, Calm CV - RRR S1 S2, No M/R/G RESP - CTA B/L No wheezes, ronchi, rales ABD - soft, NT, ND +BS EXT - no gross joint deformity, no clubbing, cyanosis, edema NEURO - CN II-XII grossly intact, no focal deficits MEDICATIONS: Current Facility-Administered Medications Medication Dose Route Frequency NaCl 0.9% iv flush bag 20 mL INTRAVENOUS PRN levalbuterol 0.63 mg nebulizer solution (XOPENEX) 0.63 mg INHALATION q 6 H PRN ondansetron 4 mg tab(s) (ZOFRAN) 4 mg ORAL q 6 H PRN Or ondansetron (PF) 4 mg injection (ZOFRAN) 4 mg INTRAVENOUS q 6 H PRN scopolamine (delivers 1 mg over 3 days) 1 Patch (TRANSDERM-SCOP) 1 Patch TRANSDERMAL q 72 HR And scopolamine - REMOVE PATCH OTHER q 72 HR And scopolamine - VERIFY patch OTHER q 8 H pantoprazole 40 mg injection (PROTONIX) 40 mg INTRAVENOUS BID AC (0600/1600) fxmwcvobntMWHUP-mfvoeb-iaspolkge 10 mL oral liquid (BMX 1:1:1) 10 mL ORAL q 4 H PRN hydrOXYzine pamoate 50 mg cap(s) (VISTARIL) 50 mg ORAL q 6 H PRN DULoxetine 30 mg cap(s) (CYMBALTA) 30 mg ORAL DAILY DATA: Diagnostic tests reviewed for today's visit: CBC: Recent Labs 07/20/24 0906 HB 9.2* Labs: CBC: Recent Labs 07/20/24 0906 07/20/24 0209 07/19/24 1658 07/19/24 0834 07/19/24 0210 07/18/24 1714 07/18/24 0835 07/18/24 0416 07/17/24 0904 07/17/24 0547 07/16/24 2228 07/16/24 1643 WBC -- -- -- -- 5.32 -- -- 6.83 -- 7.69 -- 18.51* HB 9.2* 9.6* 8.8* 7.2* 7.2* 7.3* 7.2* 7.5* < > 7.3* < > 9.2* HCT -- -- -- -- 21.3* -- -- 21.7* -- 21.2* -- 26.9* PLT -- -- -- -- 137* -- -- 148* -- 143* -- 283 MCV -- -- -- -- 87.7 -- -- 87.5 -- 86.5 -- 91.8 RDWCV -- -- -- -- 14.4 -- -- 15.0 -- 14.5 -- 12.6 NEUTP -- -- -- -- -- -- -- -- -- -- -- 84.6 ABSNEUT -- -- -- -- -- -- -- -- -- -- (more content not included)...[facility]11-25-2024 NoteHNO ID: [id number] Author: ROBERTO GRANADOS, PhD Service: Psychology Author Type: Psychologist Type: Progress Notes Filed: 07/19/2024 12:46 Note Text: PSYCHOLOGY PROGRESS NOTE SERVICE DATE: 07/19/2024 SERVICE TIME: 12:40 PM Subjective The patient informed me that she slept well last night but had to wake up several times. The patient told me that her appetite was fine. She told me that the during her stay in the hospital she was beginning to feel better. She said that she felt she wanted to get better and keep on improvement. During her stay here, she felt that things had come to gather and helped her improve quite a bit. The patient said that she never attempted to end her life before. She said she had no intentions of doing that again. She overdosed on tramadol, Lyrica and meloxicam. She was not quite sure of the amount of the pills she took. The patient ex fltcaw-pu-fmd was present in the room. The patient stays with her ex fsthus-db-slb. Current Facility-Administered Medications Medication Dose Route Frequency NaCl 0.9% iv flush bag 20 mL INTRAVENOUS PRN levalbuterol 0.63 mg nebulizer solution (XOPENEX) 0.63 mg INHALATION q 6 H PRN ondansetron 4 mg tab(s) (ZOFRAN) 4 mg ORAL q 6 H PRN Or ondansetron (PF) 4 mg injection (ZOFRAN) 4 mg INTRAVENOUS q 6 H PRN scopolamine (delivers 1 mg over 3 days) 1 Patch (TRANSDERM-SCOP) 1 Patch TRANSDERMAL q 72 HR And scopolamine - REMOVE PATCH OTHER q 72 HR And scopolamine - VERIFY patch OTHER q 8 H pantoprazole 40 mg injection (PROTONIX) 40 mg INTRAVENOUS BID AC (0600/1600) cjqmvntolpBICMV-lmlotm-oxsbjsfew 10 mL oral liquid (BMX 1:1:1) 10 mL ORAL q 4 H PRN hydrOXYzine pamoate 50 mg cap(s) (VISTARIL) 50 mg ORAL q 6 H PRN DULoxetine 30 mg cap(s) (CYMBALTA) 30 mg ORAL DAILY Objective The patient presented with a pleasant affect. She was cooperative. Her conversation was coherent and relevant. She expressed insight into her current issues in life. She responded in a positive way to counseling. The patient discussed the issues she had medically but very clearly stated that her attempt to end her life by overdosing on medications was not a choice she expected herself to make. Following our discussion of the issues, she was quite aware that the there is plenty of help she could receive. She has her ex bqikhm-xu-oem and her ex zggsnf-gj-wze's available to speak to and they are supportive. She was aware she could speak to the crisis center whenever she felt in distress. She was also aware that having a counselor in the community is a great asset. She was also made aware that the emergency room is always available and that she could ask to see the psychologist and her issues will be attended to at that time. The patient then expressed regrets and understanding that what she did not only was something she had not expected herself to do, but something she would never do again. The patient was receptive to listening to coping skills she could use once she felt under psychological distress. The patient had a heart attack in the past and she had a stent put in. She suffers from fibromyalgia. CONCLUSIONS/RECOMMENDATIONS: The patient is doing better during her stay here. I discussed her case with her physician who had already put her back on Cymbalta for her depression and anxiety. I discussed the patient's case with her nurse. The patient will be moved to floor today. The patient has to be here at least 2 more days from a medical standpoint. I will follow up daily. I will provide counseling. I will assess the patient's condition and her need for further psychiatric treatment. SIGNATURE: Roberto Gagnon, PhD PATIENT NAME: Holden Childers DATE: July 19, 2024 TIME: 12:40 PM PAGER: Attestation Note The majority of visit was spent counseling and/or coordinating care for the patient. Total time spent was 30 minutesAd[facility]11-25-2024 NoteHNO ID: [id number] Author: TONEY BANKS LSW Service: Care Management Author Type: Industrial Property Appraiser Type: Care Mgt Progress Note Filed: 07/19/2024 12:51 Note Text: SOCIAL WORK PROGRESS NOTE SERVICE DATE: 07/19/2024 SERVICE TIME: 12:40 PM Chart reviewed. Patient admitted to ICU for hematemesis, HTN, fibromyalgia, recent hospital admission for intentional overdose, UGIB. Patient on RA, 1:1 sitter, BID protonix, GI c/s - s/p EGD, IVAB, psych c/s, off octreotide gtt, up independent in room. Patient presents from [facility] for medical clearance as patient recently dc'd on 07/13 to inpatient psych facility from [facility] for intentional overdose on home medication (Lyrica, informed hospital staff she wanted to kill herself when asked why she took the medication), had a witnessed seizure while at home x2, from home with ie-nwctuy-om-law, independent with ADLs/IADLs prior to admission, uses no DME at baseline, +PCP and insurance, actively working full-time, still drives, pink slipped in ED at [facility]. Psych c/s complete - plan to transfer patient to inpatient psychiatric facility once medically stable. No CM needs noted at this time. If patient discharge plan changes will complete formal IA. SIGNATURE: NAUN Milton PATIENT NAME: Holden Childers DATE: July 19, 2024 TIME: 12:40 PMAdventist Medical Center11-25-2024 NoteHNO ID: [id number] Author: VLAD CANCINO MD Service: Gastroenterology Author Type: Physician Type: Procedures Filed: 07/19/2024 08:13 Note Text: Brief EGD procedure note: Esophagus: Small hiatal hernia, otherwise normal. Stomach: Multiple clean-based ulcers, with no high risk bleeding stigmata. Duodenum: Normal Recommendations: - Continue pantoprazole 40 mg IV twice daily while in the hospital, then 40 mg p.o. twice daily 15-30 minutes before meals for 2 months on discharge. - Resume diet - Stop octreotide - Aspirin can be resumed in 3 days (take with food), and Brilinta can be resumed in 5 days if hemoglobin remains stable and no episodes of GI bleeding. - Avoid other NSAIDs - Advised to stop marijuana and alcohol. - Biopsies were not obtained today due to risk of bleeding. - The patient is going to need a follow-up EGD in 2 months to ensure ulcer is healing and obtain gastric biopsies at that time. GI referral number is [phone]. - Called and discussed endoscopy findings with the patient's son (Hao Childers) as per the patient's request. - GI will sign off, please call if you have further questions. Vlad Cancino [facility] NoteHNO ID: [id number] Author: ALAINA OROZCO DO Service: Critical Care Author Type: Physician Type: Progress Notes Filed: 07/19/2024 11:17 Note Text: PULMONARY/CRITICAL CARE INTENSIVE MEDICAL/SURGICAL CARE UNIT PROGRESS NOTE Patient Name: Holden Childers Account #: Data Unavailable Admission Date: 07/16/2024 Date of Evaluation: 07/19/2024 Time of Evaluation: 7:50 AM SUBJECTIVE overnight afebrile, normotensive. S/p EGD this am. Denies any nausea, vomiting, or diarrhea. Had a tarry stool yesterday morning. No vomiting since day of admission. VITALS 07/19/24 0500 07/19/24 0600 07/19/24 0700 07/19/24 0710 BP: 140/67 120/74 139/75 139/75 Pulse: 87 84 91 79 Resp: Temp: 37.2 ?C (99 ?F) TempSrc: Temporal SpO2: 93% 92% 92% 96% Weight: Height: PHYSICAL EXAM Gen: Alert AND Oriented x 3, No acute distress HEENT: Normocephalic, Atraumatic, Pupils Equally Reactive to light and accomodation, moist mucous membranes, Neck: Supple, no rigidity, Trachea is midline, no Lymphadenopathy Lungs: Clear to Auscultation bilaterally , No wheezing, rhonchi or rales Heart: Regular Rate and Rhythm, Normal S1 and S2, no murmurs Abd: Soft, Nontender and nondistended, Positive Bowel Sounds x all four quadrants Ext: No edema, +2 pulses Neuro: CN II - XII grossly intact, no sensory/motor deficits noted 24 hour Intake AND Output: Intake/Output Summary (Last 24 hours) at 07/19/2024 0750 Last data filed at 07/19/2024 0524 Gross per 24 hour Intake 548 ml Output -- Net 548 ml INPATIENT MEDICATIONS : Current Facility-Administered Medications Medication Dose Route Frequency [Transfer Hold] NaCl 0.9% iv flush bag 20 mL INTRAVENOUS PRN [Transfer Hold] levalbuterol 0.63 mg nebulizer solution (XOPENEX) 0.63 mg INHALATION q 6 H PRN [Transfer Hold] ondansetron 4 mg tab(s) (ZOFRAN) 4 mg ORAL q 6 H PRN Or [Transfer Hold] ondansetron (PF) 4 mg injection (ZOFRAN) 4 mg INTRAVENOUS q 6 H PRN [Transfer Hold] scopolamine (delivers 1 mg over 3 days) 1 Patch (TRANSDERM-SCOP) 1 Patch TRANSDERMAL q 72 HR And [Transfer Hold] scopolamine - REMOVE PATCH OTHER q 72 HR And [Transfer Hold] scopolamine - VERIFY patch OTHER q 8 H [Transfer Hold] cefTRIAXone 2 g in D5W 100 mL Vial-Bag (ROCEPHIN) 2 g INTRAVENOUS q 24 HR [Transfer Hold] pantoprazole 40 mg injection (PROTONIX) 40 mg INTRAVENOUS BID AC (0600/1600) [Transfer Hold] enfamzpayhYZCDA-xkkftz-rauztfrmx 10 mL oral liquid (BMX 1:1:1) 10 mL ORAL q 4 H PRN [Transfer Hold] hydrOXYzine pamoate 50 mg cap(s) (VISTARIL) 50 mg ORAL q 6 H PRN [Transfer Hold] DULoxetine 30 mg cap(s) (CYMBALTA) 30 mg ORAL DAILY Facility-Administered Medications Ordered in Other Encounters Medication Dose Route Frequency propofol injection (DIPRIVAN) INTRAVENOUS PRN NaCl 0.9% iv infusion INTRAVENOUS X (ONE-STEP ONLY) CONTINUOUS PRN HOME MEDICATIONS: cholecalciferol (VITAMIN D-3) 5,000 unit tabTake 5,000 Units by mouth once daily.Disp: Rfl: DULoxetine (CYMBALTA) 30 mg capsuleTake 1 capsule by mouth once daily.Disp: 90 capsuleRfl: 0 acyclovir (ZOVIRAX) 400 mg tabletTAKE 1 TABLET BY MOUTH TWICE A DAY NEEDED FOR COLD SORESDisp: Rfl: azelastine 0.1% nasal sprayUse 1 [place] in each nostril two times a day.Disp: Rfl: cyanocobalamin (VITAMIN B-12) 500 mcg tabletTake by mouth.Disp: Rfl: VOLTAREN ARTHRITIS PAIN 1 % topical gelDisp: Rfl: sodium fluoride (PREVIDENT 5000 PLUS) 1.1 % dental creamUSE AT BEDTIMEDisp: Rfl: ketoconazole (NIZORAL) 2 % creamAPPLY TOPICALLY TO THE AFFECTED AREA DAILYDisp: Rfl: (Patient not taking: Reported on 06/15/2024) traMADol (ULTRAM) 50 mg tabletDisp: Rfl: metoprolol succinate ER (TOPROL XL) 50 mg 24 hr tabletDisp: Rfl: atorvastatin (LIPITOR) 40 mg tabletTake 1 tablet by mouth every afternoon.Disp: Rfl: aspirin 81 mg chewable tabletCHEW 1 TABLET BY MOUTH EVERY DAY WITH A MEALDisp: Rfl: ticagrelor (BRILINTA) 90 mg tabletTake by mouth.Disp: Rfl: pregabalin (LYRICA) 50 mg capsuleTake 50 mg by mouth three times a day.Disp: Rfl: sertraline (ZOLOFT) 50 mg tabletTake 50 mg by mouth three times a day.Disp: Rfl: (Patient not taking: Reported on 06/15/2024) LYSINE ORALTake by mouth.Disp: Rfl: fluticasone propionate (FLONASE NASAL)Use in the nose.Disp: Rfl: albuterol sulfate 90 mcg/actuation breath activated powder inhalerInhale as instructed.Disp: Rfl: cyclobenzaprine (FLEXERIL) 5 mg tabletTake 1 tablet by mouth daily at bedtime.Disp: 90 tabletRfl: 0 magnesium oxide (MAG-OX) 400 mg (241.3 mg magnesium) tabletTake 1 tablet by mouth twice daily.Disp: Rfl: montelukast (SINGULAIR) 10 mg tabletTake 1 tablet by mouth daily at bedtime.Disp: 90 tabletRfl: 1 LABORATORY TESTS: CBC: Recent Labs 07/19/24 0210 07/18/24 1714 07/18/24 0835 07/18/24 0416 07/17/24 2130 07/17/24 1517 07/17/24 0904 07/17/24 0547 07/16/24 2228 07/16/24 1643 WBC 5.32 -- -- 6.83 -- -- -- 7.69 -- 18.51 (more content not included)...[facility] NoteHNO ID: [id number] Author: NEELIMA BRAGA MD Service: Critical Care Author Type: Physician Type: Progress Notes Filed: 07/18/2024 08:55 Note Text: CRITICAL CARE PROGRESS NOTE Patient Name: Holden Childers Date of Evaluation: 07/18/2024 Admission Date: 07/16/2024 Interval Events: Patient seen and examined at the bedside, patient is on room air, hemodynamically stable. Discussed with nursing staff, no overnight bleeding noted. GI possible scope tomorrow. Denies any new complaints, no abdominal pain. Plan of care discussed with patient and nursing staff. VITALS: 07/18/24 0600 07/18/24 0632 07/18/24 0645 07/18/24 0700 BP: 129/72 129/79 Pulse: 85 78 Resp: 23 (!) 41 Temp: TempSrc: SpO2: 96% 97% Weight: 64 kg (141 lb 1.5 oz) Height: Physical Exam Vitals reviewed. Constitutional: General: She is not in acute distress. HENT: Head: Normocephalic. Cardiovascular: Rate and Rhythm: Normal rate. Pulmonary: Effort: No respiratory distress. Abdominal: General: There is no distension. Palpations: Abdomen is soft. Tenderness: There is no abdominal tenderness. Musculoskeletal: Cervical back: No rigidity. Right lower leg: No edema. Left lower leg: No edema. Skin: General: Skin is warm. Neurological: General: No focal deficit present. Mental Status: She is alert. Motor: No weakness. Psychiatric: Mood and Affect: Mood normal. 24 hour Intake AND Output: Intake/Output Summary (Last 24 hours) at 07/18/2024 0833 Last data filed at 07/18/2024 0629 Gross per 24 hour Intake 2086 ml Output 800 ml Net 1286 ml INPATIENT MEDICATIONS: Current Facility-Administered Medications Medication Dose Route Frequency NaCl 0.9% iv flush bag 20 mL INTRAVENOUS PRN levalbuterol 0.63 mg nebulizer solution (XOPENEX) 0.63 mg INHALATION q 6 H PRN octreotide 500 mcg in NaCl 0.9% 100 mL (SandoSTATIN) 50 mcg/hr INTRAVENOUS CONTINUOUS ondansetron 4 mg tab(s) (ZOFRAN) 4 mg ORAL q 6 H PRN Or ondansetron (PF) 4 mg injection (ZOFRAN) 4 mg INTRAVENOUS q 6 H PRN scopolamine (delivers 1 mg over 3 days) 1 Patch (TRANSDERM-SCOP) 1 Patch TRANSDERMAL q 72 HR And [START ON 07/19/2024] scopolamine - REMOVE PATCH OTHER q 72 HR And scopolamine - VERIFY patch OTHER q 8 H cefTRIAXone 2 g in D5W 100 mL Vial-Bag (ROCEPHIN) 2 g INTRAVENOUS q 24 HR pantoprazole 40 mg injection (PROTONIX) 40 mg INTRAVENOUS BID AC (0600/1600) hnllbaeameUVYCR-plprdz-yorxbjfmd 10 mL oral liquid (BMX 1:1:1) 10 mL ORAL q 4 H PRN hydrOXYzine pamoate 50 mg cap(s) (VISTARIL) 50 mg ORAL q 6 H PRN LABORATORY TESTS: CBC: Recent Labs 07/18/24 0416 07/17/24 2130 07/17/24 1517 07/17/24 0904 07/17/24 0547 07/17/24 0250 07/16/24 2228 07/16/24 1643 WBC 6.83 -- -- -- 7.69 -- -- 18.51* HB 7.5* 7.3* 7.0* 7.5* 7.3* 7.9* 5.9* 9.2* HCT 21.7* -- -- -- 21.2* -- -- 26.9* PLT 148* -- -- -- 143* -- -- 283 MCV 87.5 -- -- -- 86.5 -- -- 91.8 RDWCV 15.0 -- -- -- 14.5 -- -- 12.6 NEUTP -- -- -- -- -- -- -- 84.6 ABSNEUT -- -- -- -- -- -- -- 15.68* LYMPHP -- -- -- -- -- -- -- 7.4 MONOP -- -- -- -- -- -- -- 6.2 EODINP -- -- -- -- -- -- -- 0.2 COAG: Recent Labs 07/17/24 0547 07/16/24 1643 APTT 23.6 25.6 INR 1.0 1.1 BMP: Recent Labs 07/18/24 0416 07/17/24 0547 07/16/24 1643 GLUC 92 118* 217* NA 142 143 137 K 3.7 3.9 4.6 CHLOR 108* 110* 102 CO2 27 24 20* ANION 7 9 15 BUN 17 35* 47* CREAT 0.91 1.06* 1.26* CHEM: Recent Labs 07/18/246 07/17/24 0547 07/16/24 1643 ALB 2.5* 2.3* 2.8* TPROT 5.3* 4.8* 6.5 CA 8.6 8.4* 9.7 MG 1.6 1.7 2.0 HEPATIC: Recent Labs 07/18/24 0416 07/17/24 0547 07/16/24 1643 ALKPHOS 68 63 101 ALT 36 32 47 AST 41* 42* 55* TBILI 0.5 1.4* 0.7 URINALYSIS: Recent Labs 07/17/24 1854 SPGR 1.008 UGLUC Negative UBILI Negative UKET Negative UHB Negative UPROT Negative UWBC 0-5 /HPF CARDIAC: No results for input(s): CKTEST, CKMB, CKMBP, TROPT, PBNP in the last 168 hours. IMPRESSION/PLAN: 54-year-old female with PMH of endometriosis, fibromyalgia, hypertension, CAD in 11/15 status post PCI of the RCA, former smoker [id number] quit 11/15, recently hospitalized at [facility] for intentional overdose of Lyrica. Patient presented from [facility] with hematemesis. Patient admitted to ICU for acute blood loss anemia and upper GI bleed. Upper GI bleed Acute blood loss anemia ? Cirrhosis ? Aspiration pneumonia History of CAD s/p PCI to the RCA on DAPT Lactic acidosis - resolved NAGMA - resolved ROBI -improving Hyperbilirubinemia Chronic comorbidities include endometriosis, fibromyalgia, hypertension, CAD Plan: On room air, hemodynamically stable, monitor hemodynamics and perfusion parameters Unclear if upper GI bleed is secondary to gastritis/PUD or esophageal varices, continue octreotide, high-dose PPI. Continue ceftriaxone for aspiration pneumonia an (more content not included)...[facility]11-23-[facility] Note HNO ID: [id number] Author: TILA LEE RT(R) Service: Radiology Author Type: Technologist Type: Progress Notes Filed: 07/17/2024 11:52 Note Text: Radiology Service Progress Note PATIENT NAME: Holden Childers DATE OF SERVICE: July 17, 2024 TIME: 11:52 AM PATIENT IDENTITY VERIFICATION COMPLETED USING TWO (2) IDENTIFIERS: Name and Date of confirmed by patient verbally and Name and Date of confirmed by identification band. FALL SCREENING: Has the patient had 2 falls in the last year or 1 fall with injury or currently using an Ambulatory Assistive Device (Walker, Cane, Wheelchair, Crutches, etc.)? Inpatient: Screened on floor PATIENT GENDER DATA: Female. status: : No status: N/A PATIENT RELEVANT IMPLANT DATA REVIEWED: Not Applicable PATIENT PRESENTS WITH AN IMPLANTABLE OR ATTACHED EMERGENCY OPERATOR: No RADIOLOGY DEPARTMENT: Ultrasound PERIPHERAL IV DATA: Inpatient: see LDA documentation SIGNED BY: RT Ant(R) July 17, 2024 11:52 [facility]11-23-2024 NoteHNO ID: [id number] Author: NEELIMA BRAGA MD Service: Critical Care Author Type: Physician Type: Progress Notes Filed: 07/17/2024 09:32 Note Text: CRITICAL CARE PROGRESS NOTE Patient Name: Holden Childers Date of Evaluation: 07/17/2024 Admission Date: 07/16/2024 Interval Events: Patient seen and examined at the bedside, sitter at bedside. She feels better, no episode of hematemesis noted this morning. Creatinine downtrending, on room air, hemodynamically stable Called patient's son and updated and all questions answered. He is planning to visit her today. Plan of care discussed with patient, son, bedside RN. VITALS: 07/17/24 0615 07/17/24 0630 07/17/24 0645 07/17/24 0700 BP: 115/61 108/55 113/60 108/58 Pulse: 101 97 97 96 Resp: Temp: TempSrc: SpO2: 95% 95% 93% 95% Weight: Height: Physical Exam Vitals and nursing note reviewed. Constitutional: General: She is not in acute distress. HENT: Head: Normocephalic. Cardiovascular: Rate and Rhythm: Normal rate. Pulmonary: Effort: No respiratory distress. Abdominal: Palpations: Abdomen is soft. Tenderness: There is no abdominal tenderness. Musculoskeletal: Cervical back: No rigidity. Right lower leg: No edema. Left lower leg: No edema. Skin: General: Skin is dry. Neurological: Mental Status: She is oriented to person, place, and time. Motor: Weakness present. 24 hour Intake AND Output: Intake/Output Summary (Last 24 hours) at 07/17/2024 0748 Last data filed at 07/17/2024 0550 Gross per 24 hour Intake 3634 ml Output -- Net 3634 ml INPATIENT MEDICATIONS: Current Facility-Administered Medications Medication Dose Route Frequency iv contrast (radiology procedure) INTRAVENOUS DIRECTED PRN NaCl 0.9% iv flush bag 20 mL INTRAVENOUS PRN pantoprazole 80 mg in NaCl 0.9% 100 mL (PROTONIX) CONTINUOUS INFUSION 8 mg/hr INTRAVENOUS CONTINUOUS levalbuterol 0.63 mg nebulizer solution (XOPENEX) 0.63 mg INHALATION q 6 H PRN octreotide 500 mcg in NaCl 0.9% 100 mL (SandoSTATIN) 50 mcg/hr INTRAVENOUS CONTINUOUS piperacillin-tazobactam iv piggyback 3.375 g in dextrose (iso-osmotic) 50 mL (ZOSYN) 3.375 g INTRAVENOUS q 6 H lactated ringers iv infusion 75 mL/hr INTRAVENOUS CONTINUOUS ondansetron 4 mg tab(s) (ZOFRAN) 4 mg ORAL q 6 H PRN Or ondansetron (PF) 4 mg injection (ZOFRAN) 4 mg INTRAVENOUS q 6 H PRN scopolamine (delivers 1 mg over 3 days) 1 Patch (TRANSDERM-SCOP) 1 Patch TRANSDERMAL q 72 HR And [START ON 07/19/2024] scopolamine - REMOVE PATCH OTHER q 72 HR And scopolamine - VERIFY patch OTHER q 8 H LABORATORY TESTS: CBC: Recent Labs 07/17/24 0547 07/17/24 0250 07/16/248 07/16/24 1643 WBC 7.69 -- -- 18.51* HB 7.3* 7.9* 5.9* 9.2* HCT 21.2* -- -- 26.9* PLT 143* -- -- 283 MCV 86.5 -- -- 91.8 RDWCV 14.5 -- -- 12.6 NEUTP -- -- -- 84.6 ABSNEUT -- -- -- 15.68* LYMPHP -- -- -- 7.4 MONOP -- -- -- 6.2 EODINP -- -- -- 0.2 COAG: Recent Labs 07/17/24 0547 07/16/24 1643 APTT 23.6 25.6 INR 1.0 1.1 BMP: Recent Labs 07/17/24 0547 07/16/24 1643 GLUC 118* 217* NA 143 137 K 3.9 4.6 CHLOR 110* 102 CO2 24 20* ANION 9 15 BUN 35* 47* CREAT 1.06* 1.26* CHEM: Recent Labs 07/17/24 0547 07/16/24 1643 ALB 2.3* 2.8* TPROT 4.8* 6.5 CA 8.4* 9.7 MG 1.7 2.0 HEPATIC: Recent Labs 07/17/24 0547 07/16/24 1643 ALKPHOS 63 101 ALT 32 47 AST 42* 55* TBILI 1.4* 0.7 URINALYSIS:No results for input(s): PH, SPGR, UGLUC, UBILI, UKET, UHB, UPROT, UROBIL, UWBC, SSA in the last 168 hours. Invalid input(s): NITR CARDIAC: No results for input(s): CKTEST, CKMB, CKMBP, TROPT, PBNP in the last 168 hours. IMPRESSION/PLAN: 54-year-old female with PMH of endometriosis, fibromyalgia, hypertension, CAD in 11/15 status post PCI of the RCA, former smoker [id number] quit 11/15, recently hospitalized at [facility] for intentional overdose of Lyrica. Patient presented from [facility] with hematemesis. Patient admitted to ICU for acute blood loss anemia and upper GI bleed. Upper GI bleed Acute blood loss anemia ? Cirrhosis Aspiration pneumonia History of CAD s/p PCI to the RCA on DAPT Lactic acidosis - resolved NAGMA - resolved ROBI -improving Hyperbilirubinemia Chronic comorbidities include endometriosis, fibromyalgia, hypertension, CAD Plan: On room air, hemodynamically stable, monitor hemodynamics and perfusion parameters Unclear if upper GI bleed is secondary to gastritis/PUD or esophageal varices, continue octreotide, high-dose PPI. Continue ceftriaxone for aspiration pneumonia and also has benefit with upper GI bleed patients although in setting of cirrhosis (f/u Liver US) Monitor HANDH, goal to keep hemoglobin > 7 (no active CAD, not in active CHF exacerbation) GI on consult, as per their recommendation EGD 2 days after Brilinta N.p.o. Monito (more content not included)...[facility]11-22-2024 NoteHNO ID: [id number] Author: MANDO THOMAS APRN.CNP Service: Critical Care Author Type: Nurse Practitioner Type: Procedures Filed: 07/16/2024 23:42 Note Text: BEDSIDE PROCEDURE NOTE CENTRAL LINE INSERTION Date/Start Time: 07/16/2024 11:20 PM Date/Stop Time: 07/16/2024 11:35 PM Performed by: Mando Thomas APRN.DIRECTOR PRODUCT Authorized by: Mando Thomas APRN.ROLANDO Where was Patient When this Procedure was Performed: Bedside/Unscheduled Procedure Room Informed Consent Consent Obtained: Verbal [place] Protocol A moment to CARE was completed. SIGN IN Personnel directly involved with the procedure wore the appropriate PPE. Special Equipment: N/A Patient/Surrogate Stated/Verified: Patient name, Date of , Relevant allergies and Intended procedure TIME OUT Intended patient and procedure match the source document(s). Consent documented and matches the intended procedure. Relevant labs, photos, and/or imaging studies have been reviewed. No correct side/site applicable for marking and visibility. No medications required for procedure. No fire risk assessment and interventions applicable. No implant(s) inserted. Pre-Procedure Details: The area was prepped with chlorhexidine (Chloroprep) and allowed to dry. A sterile full body drape was applied following the usual aseptic technique. [facility] Central Line Insertion Checklist, attached to the Central Line- Associated Bloodstream Infection Prevention policy utilized: Yes Medications: Local Anesthesia (see MAR): Lidocaine 1% Procedure Details: Indication: Venous access and risk of massive blood loss Patient Position: flat Site: Right internal jugular vein New Stick: The vein was cannulated with direct imaging visualization with an 18 gauge needle.Ultrasound guidance used and image not captured. A 16 cm triple-lumen, 7Fr, non-tunneled, pressure injectable, antimicrobial catheter was advanced over the guidewire and left in situ while the guidewire was removed. The catheter was secured in place at 16 cm. Securement: Occlusive dressing applied, line sutured, sterile caps on all hubs and sterile dressing applied Assessment: Blood return through all ports, placement verified by x-ray and no pneumothorax on x-ray All catheters, needles, and wires were accounted for and intact Number of Attempts: 1 Successful Placement: yes Post-Procedure Details: Patient Tolerance: Patient tolerated the procedure well with no immediate complications Estimated Blood Loss: none Specimens Sent: none SIGN OUT No specimen collected. All instruments, equipment, possible retained foreign bodies accounted for. Post-procedure follow-up management communicated and Plan of Care Visit completed when applicable SIGNATURE: Mando Thomas APRN.CNP PATIENT NAME: Holden Childers DATE: July 16, 2024 TIME: 11:41 [facility]11-22-2024 [facility] Medical Records Department [address] [place] [address] Discharge Summary 07/16/24 1002 MR#: [id number] Acct: [id number] Name: HOLDEN CHILDERS Rep #: [id number] : 1970 54 From: Hernán Javier DO PCP: Dr. Bonifacio Bell MD Status:[id number] Date of Admission: 07/13/24 Primary Care Physician: Dr. Bonifacio Bell MD Reason For Visit: OVERDOSE Diagnosis Discharge Diagnosis (1) Generalized tonic-clonic seizure: Status: Acute Code(s): G40.409 - Other generalized epilepsy and epileptic syndromes, not intractable, without status epilepticus Plan: likely 2/2 to tramadol overdose. No prior seizure history. Place seizure precautions. Pt likely will not require seizure restrictions after discharge No further seizures (2) Intentional overdose: Status: Acute Code(s): T50.902A - Poisoning by unspecified drugs, medicaments and biological substances, intentional self- harm, initial encounter Plan: Suicide attempt. Pt took pregabalin, tramadol and meloxicam Pt has already been pink-slipped by Dr. Rea. When patient is medically ready, she will need Crisis consult to psychiatric unit placement. Sitter at bedside. Per nursing in the ICU, pt was unremorsefull about the attempt and upset it did not succeed. Continue suicide precautions. Appropriate for Crisis evaluation (3) Acute hypotension: Status: Acute Code(s): I95.9 - Hypotension, unspecified Plan: Resolved. Likely iatrogenic.Will give IVF. Monitor (4) Encephalopathy: Status: Acute Code(s): G93.40 - Encephalopathy, unspecified Qualifiers: Encephalopathy type: toxic Toxic encephalopathy cause: unspecified toxin Qualified Code(s): G92.9 - Unspecified toxic encephalopathy Plan: Improving toxic encephalopathy 2/2 intentional ingestion of multiple large quantities of medicatoins Pt has pulled out several IVs, so will avoid further attmepts and encourage ongoing oral intake. Plan ROBI v CKD * no prior labs. * IVF and monitor Abnormal drug screen * PCP likely falsly positive from tramadol Chronic conditions * Fibromomyalgia: no further pregabalin nor tramadol * CAD: s/p PCI. continue ticagrelor, ASA, statin, metoprolol tartrate. VTE prophylaxis: enoxaparin DW pt's [id number] at bedside. Medications at Discharge Home Medications albuterol sulfate 90 mcg/actuation aerosol inhaler 2 puff inhalation Q6H PRN shortness of breath or wheezing 06/14/24 aspirin 81 mg tablet,delayed release (Adult Aspirin Regimen) 81 mg PO QDAY heart health 06/14/24 atorvastatin 40 mg tablet (Lipitor) 40 mg PO QDAY cholesterol 06/14/24 biotin 5 mg capsule 5 mg PO QDAY supplement 06/14/24 cholecalciferol (vitamin D3) 25 mcg (1,000 unit) capsule 25 mcg PO QDAY supplement 06/14/24 fluticasone propionate 50 mcg/actuation nasal spray,suspension (Flonase Allergy Relief) 1 spray intranasal QDAY allergy 06/14/24 lysine 1,000 mg tablet 1,000 mg PO QDAY cold sore 06/14/24 magnesium 200 mg tablet 400 mg PO BID supplement 06/14/24 ticagrelor 90 mg tablet (Brilinta) 90 mg PO BID blood thinner 06/14/24 metoprolol succinate 25 mg tablet,extended release 24 hr 25 mg PO BID blood pressure 07/13/24 Hospital Course Operations None Procedures None Summary of Care Provided Hospital Course: Patient presented with intentional drug overdose with Lyrica and tramadol. She was noted to have 2 seizures at home. She was postictal initially. Came to was alert but then became more confused and was hallucinating. Patient was observed and then on patient was overall better crisis evaluated and patient was evaluated and determined a candidate for psychiatric unit. Patient be going to a psychiatric unit today in stable condition. Weight / BMI Weight Weight: 59.2 kg Body Mass Index (BMI) 21.7 ABG / Lab / Microbiology Data 07/14/24 04:25 07/14/24 04:25 D/C Instructions Discharge Diet: No restrictions DC O2, CPAP, BIPAP Needs Additional Home O2 Discharge instructions: No DC home with Oxygen: No Meaningful Use Info Meaningful Use Meaningful Use Diagnoses (Choose all that apply): None applicable Ischemic Stroke Statin Dosing Therapy Reference: STATIN DOSE THERAPY REFERENCE: * Patients > 75 years receive moderate or high dose statin therapy. * Patients 75 years or YOUNGER should receive HIGH intensity statin dose unless contraindicated. You will be required to document reason for non-treatment if statin daily dose does not meet guidelines. HIGH DOSE STATIN THERAPY DAILY Atorvastatin > than or = to 40 mg Rosuvastatin > than or = to 20 mg Amlodipine + Atorvastatin > than or = to 2.5/40 mg Ezetimibe + Simvastatin 10/80 mg Simvastatin 80mg Discharge Plan Admission Admit Date/Time: 07/13/24 10:45 (more content not included)...[facility]11-12-2024 NoteHNO ID: [id number] Author: ?, ?, ? Service: ? Author Type: ? Type: Progress Notes Filed: 07/06/2024 00:28 Note Text: Sleep Study Check-In Documentation Date: July 06, 2024 Name: Holden Childers Patient was accompanied by Self. Location: [facility] Late[place] allergy: No Tape allergy: No Current medications were reviewed with the patient:Yes Sleep aid taken by patient for the sleep study: [place] of sleep aid: Not Applicable Procedure was explained to the patient and all questions were answered. PAP treatment discussed and shown to patient: No If PAP used enter mask info: Mask Name Make MaskType Mask Size Chin Sharp Used Knowledge Program (KP): KP was not completed in epic by patient and accepted Study type: Polysomnogram Adverse Event: No (If yes create a new abstract) Comments: Patient was advised to follow up with their ordering provider regarding test results Deborah Dalal [facility]11-12-2024 History of Present illness Narrative* Deborah Brewer - 07/06/2024 12:27 AM EST Sleep Study Check-In Documentation Date: July 06, 2024 Name: Holden Childers Patient was accompanied by Self. Location: [place] Latex allergy: No Tape allergy: No Current medications were reviewed with the patient:Yes Sleep aid taken by patient for the sleep study: [place] of sleep aid: Not Applicable Procedure was explained to the patient and all questions were answered. PAP treatment discussed and shown to patient: No If PAP used enter mask info: Mask Name Make MaskType Mask Size Chin Sharp Used Knowledge Program (KP): KP was not completed in epic by patient and accepted Study type: Polysomnogram Adverse Event: No (If yes create a new abstract) Comments: Patient was advised to follow up with their ordering provider regarding test results Deborah Brewer [facility] History of Present illness Narrative* Radha Macdonald APRN.DIRECTOR PRODUCT - 06/15/2024 4:30 PM EDT New Onabotulinum Toxin A (BotoxTM) for Migraine Indication: Chronic Intractable Migraine Treatment #: 1 Referral Expiration: 05/13/2025 Number of moderate-severe migraine days/month: 16 Number of mild migraine days/month: 14 Number of headache free days/month: 0 (0 headache-free hours) Migraine severity: 8/10 The patient has been assessed for disorders which could contribute to breathing or swallowing difficulty, and there is no contraindication with PREEMPT Botox. There is no documented allergic reaction/hypersensitivity to any botulinum toxin and there is no active infection at proposed injection site. HEADACHE SCORES: 05/01/2024 Headache Questions ID Migraine Screener: 3 (Positive) Initial improvement of headache after botox injection at last visit: Not applicable, I did not havea botox injection at my last visit 05/01/2024 Migraine Specific QOL - Higher scores indicate better HRQL Role Function-Restrictive Transformed Score (range: 0-100) 42.86 Role Function-Preventive Transformed Score (range: 0-100) 60 Emotional Function Transformed Score (range: 0-100) 26.67 LMP 04/16/2010 Patient name: Holden Childers : 1970 ALLERGIES Allergen Reactions Codeine Vomiting UNIVERSAL PROTOCOL / SAFETY CHECKLIST Procedure: Onabotulinum toxin A for migraine Informed Consent Consent Obtained: Written [place] Protocol A moment to CARE was completed SIGN IN Personnel directly involved with the procedure wore the appropriate PPE Special Equipment: N/A Patient/Surrogate Stated/Verified: Patient name, Date of , Relevant allergies and Intended procedure TIME OUT Intended patient and procedure match the source document(s) Consent documented and matches the intended procedure No relevant labs, photos, and/or imaging studies were applicable for review. No correct side/site applicable for marking and visibility. No medications required for procedure. No fire risk assessment and interventions applicable. No implant(s) inserted. SIGN OUT No specimen collected. No instruments, equipment or retained foreign bodies applicable. Post-procedure follow-up management communicated and Plan of Care Visit completed when applicable Written Consent Obtained: Written LOT #: [id number] Expiration Date: Month: 2 Year: 2026 Injection Sites Left (Units) Left (Sites) Right (Units) Right (Sites) TOTAL (Units) Fur Tanner 5 1 5 1 10 Procerus Units: 5 Sites: 1 5 Frontalis 10 2 10 2 20 Temporalis 20 4 20 4 40 Occipitalis 15 3 15 3 30 Cervical PSP 10 2 10 2 20 Trapezius 15 3 15 3 30 Total Units used: 155 Total Units wasted: 45 Prior Therapies Aspirin Atenolol Bupropion Cyclobenzaprine Duloxetine Gabapentin Magnesium oxide Meloxicam Metoprolol succinate Naproxen Oxycodone/acetaminophen Sertraline Propranolol Pregabalin Topiramate Tramadol Amitriptyline Cannot use triptan medications due to history of [place] this year. Holden Childers is a 54 year old female seen today for her first round of Botox for migraine. Unaccompanied. Procedure discussed. Consent obtained. She tolerated the procedure well with no immediate adverse reactions. Radha Macdonald APRN.ROLANDO documented in this [facility]-2024 NoteHNO ID: [id number] Author: RADHA MACDONALD APRN.CNP Service: ? Author Type: Nurse Practitioner Type: Progress Notes Filed: 06/15/2024 16:28 Note Text: New Onabotulinum Toxin A (BotoxTM) for Migraine Indication: Chronic Intractable Migraine Treatment #: 1 Referral Expiration: 05/13/2025 Number of moderate-severe migraine days/month: 16 Number of mild migraine days/month: 14 Number of headache free days/month: 0 (0 headache-free hours) Migraine severity: 8/10 The patient has been assessed for disorders which could contribute to breathing or swallowing difficulty, and there is no contraindication with PREEMPT Botox. There is no documented allergic reaction/hypersensitivity to any botulinum toxin and there is no active infection at proposed injection site. HEADACHE SCORES: 05/01/2024 Headache Questions ID Migraine Screener: 3 (Positive) Initial improvement of headache after botox injection at last visit: Not applicable, I did not have a botox injection at my last visit 05/01/2024 Migraine Specific QOL - Higher scores indicate better HRQL Role Function-Restrictive Transformed Score (range: 0-100) 42.86 Role Function-Preventive Transformed Score (range: 0-100) 60 Emotional Function Transformed Score (range: 0-100) 26.67 LMP 04/16/2010 Patient name: Holden Childers : 1970 ALLERGIES Allergen Reactions Codeine Vomiting UNIVERSAL PROTOCOL / SAFETY CHECKLIST Procedure: Onabotulinum toxin A for migraine Informed Consent Consent Obtained: Written [place] Protocol A moment to CARE was completed SIGN IN Personnel directly involved with the procedure wore the appropriate PPE Special Equipment: N/A Patient/Surrogate Stated/Verified: Patient name, Date of , Relevant allergies and Intended procedure TIME OUT Intended patient and procedure match the source document(s) Consent documented and matches the intended procedure No relevant labs, photos, and/or imaging studies were applicable for review. No correct side/site applicable for marking and visibility. No medications required for procedure. No fire risk assessment and interventions applicable. No implant(s) inserted. SIGN OUT No specimen collected. No instruments, equipment or retained foreign bodies applicable. Post-procedure follow-up management communicated and Plan of Care Visit completed when applicable Written Consent Obtained: Written LOT #: [id number] Expiration Date: Month: 2 Year: 2026 Injection Sites Left (Units) Left (Sites) Right (Units) Right (Sites) TOTAL (Units) Fur Tanner 5 1 5 1 10 Procerus Units: 5 Sites: 1 5 Frontalis 10 2 10 2 20 Temporalis 20 4 20 4 40 Occipitalis 15 3 15 3 30 Cervical PSP 10 2 10 2 20 Trapezius 15 3 15 3 30 Total Units used: 155 Total Units wasted: 45 Prior Therapies Aspirin Atenolol Bupropion Cyclobenzaprine Duloxetine Gabapentin Magnesium oxide Meloxicam Metoprolol succinate Naproxen Oxycodone/acetaminophen Sertraline Propranolol Pregabalin Topiramate Tramadol Amitriptyline Cannot use triptan medications due to history of [place] this year. Holden Childers is a 54 year old female seen today for her first round of Botox for migraine. Unaccompanied. Procedure discussed. Consent obtained. She tolerated the procedure well with no immediate adverse reactions. Radha Macdonald APRN.CNPAshtabula [facility]10-22-2024 Instructions* Patient Instructions* Radha Macdonald APRN.CNP - 06/15/2024 4:11 PM EDT Botox Home Instruction: Instruction after botox injection: - If you have any pain or swelling use ice, 20 min on and 20 min off. Do not rub or massage the area for 48 hrs. - If you have any neck stiffness, you may use heat and do stretching exercises. - This should improve over the next 5 days. - If it does not, call our office at [phone] for further instructions. documented in this [facility]-2024 Telephone encounter Note * Telephone Encounter - Osman Dukes MA - 05/28/2024 2:53 PM EDT Patient did not complete PSG and MSLT. She left in the middle of the night. Can you place new orderfor PSG so that I can reschedule her? Thank you [facility]10-04-[facility] Miscellaneous Notes* Telephone Encounter - Osman Dkues MA - 05/28/2024 2:53 PM EDT Patient did not complete PSG and MSLT. She left in the middle of the night. Can you place new orderfor PSG so that I can reschedule her? Thank you documented in this [facility]09-10-2024 Instructions* Patient Instructions* Radha Macdonald APRN.CNP - 05/04/2024 7:49 AM EDT Preventative: duloxetine (Cymbalta) 30 mg daily, common side effects that may occur are nausea, sleepiness, headache, and sometimes paradoxically depression. We will submit for Botox. This does require prior authorization from insurance. Please reach out via [employer] or telephone ([phone]) if you do not hear from us or your insurance regarding authorization in 3 weeks. Below is some Botox information: BOTOX is a preventive treatment. It prevents headaches and migraine attacks before they even start.* BOTOX (onabotulinumtoxinA) is a prescription medicine that is injected into muscles and used to prevent headaches in adults with chronic migraine who have 15 or more days each month with headache lasting 4 or more hours each day in people 18 years and older. Most insurance plans cover the cost of BOTOX treatment. If you're eligible, the BOTOX Savings Program may reimburse you to help with any remaining costs. For questions about the program, please call 5-257-76-BOTOX. I have included what to expect below for the Botox injection process: The Botox injections are a series of 31 injections to the forehead, sides of the head, back of the head, the neck, and shoulder area. The injections are done in shallow muscles, just beneath the skin. The duration of the procedure for the injections once started is typically 10-15 minutes and done right in the office. The needle used for the actual injection is very small and it is NOT like an IV placement or an injection to your arm for a vaccination Botox has minimal side effects - The most common may be pain or irritation (itching, reddness, bruising, swelling) at the injection sites . You may experience flu-like symptoms after the injection, but this is transient and will only last a few days. Other side effects may include: tiredness; headache; neck pain; drooping eyelids, swelling of your eyelids, drooping or raising of eyebrows, vision changes. The first or second Botox injection may not provide adequate relief, but we do recommend continuingfor at least 3 injections total to see if there is any benefit prior to stopping the injections. The Botox injections will start to work in about 2 weeks, peak at 4-6 weeks, and gradually lose theeffect - After 3 months, the Botox is out of your system. The Botox injections are scheduled around every 90 days. If you don t get 2 treatments 12 weeks apart, you may not get the full benefit of BOTOX treatment at week 24. For more information please visit: [email or web address] Below is some headache information: Headache Preventive Treatment: Please keep in mind that it takes 4-6 weeks for the medication to start working well and 2-3 monthsat the appropriate dose before deciding if it will be useful or not. If it is not helping at all bythis time, then we will discuss other medications to try. Supplements may take 3-6 months until yousee full effect. Natural supplements: Magnesium Oxide 500 mg at bed Coenzyme Q10 300 mg in AM Vitamin B2- 200 mg twice a day Feverfew 50 mg twice a day Vitamins and herbs that show potential Magnesium: Magnesium (250 mg twice a day or 500 mg at bed) has a relaxant effect on smooth muscles such as blood vessels. Individuals suffering from frequent or daily headache usually have low magnesium levels which can be increase with daily supplementation of 400-750 mg. Three trials found 40-90%average headache reduction when used as a preventative. Magnesium also demonstrated the benefit in menstrually related migraine. Magnesium is part of the messenger system in the serotonin cascade andit is a good muscle relaxant. It is also useful for constipation which can be a side effect of other medications used to treat migraine. Good sources include nuts, whole grains, and tomatoes. Magnesium comes in many different forms: Magnesium glycinate is a good choice for those with a sensitive stomach who have gastrointestinal side effects such as diarrhea with other forms of magnesium. It is anecdotally also helpful with anxiety and sleep. Magnesium threonate also has low risk of gastrointestinal side effects and anecdotally helpful with cognitive function and brain fog symptoms. Magnesium malate has low gastrointestinal side effects and is reportedly more energizing and anecdotally often helpful in fibromyalgia and chronic fatigue syndrome. Magnesium citrate is one of the most studied, popular, and well-absorbed forms of magnesium. It can also be mixed easily with liquids if you can't take pills. However, it comes with a higher risk of diarrhea and gastrointestinal side effects, although this could be helpful forthose with constipation. Magnesium oxide is also well studied, cheap, and often used for heartburn and indigestion. However, it is not well absorbed and can have some laxative side effects as well, so can also be helpful for constipation. Riboflavin (vitamin B 2) 200 mg twice a day. This vitamin assists nerve cells in the production of ATP a principal energy storing molecule. It is necessary for many chemical reactions in the body. There have been at least 3 clinical trials of riboflavin using 400 mg per day all of which suggested that migraine frequency can be decreased. All 3 trials showed significant improvement in over half ofmigraine sufferers. The supplement is found in bread, cereal, milk, meat, and poultry. Most Americans get more riboflavin than the recommended daily allowance, however riboflavin deficiency is not necessary for the supplements to help prevent headache. Feverfew: Feverfew is a common garden herb [place] and popular [facility] as a treatment for disorders typically controlled by aspirin. The mechanism of action is unknown but is believed to be related to a chemical called parthenolide which helps the body use serotonin more effectively. Serotonin helps prevent migraine and assists with resolution when it occurs. Parthenolide also inhibits the release of histamine which is linked to pain and inflammation. Consistency of active ingredients in different products can be a problem. Some formulations don't have the active ingredient (parthenolide) that prevents migraine. A parthenolide content of 0.2% is generally recommended. Typical dosage is one capsule 3 times a day. Coenzyme Q10: This is present in almost all cells in the body and is critical component for the conversion of energy. Recent studies have shown that a nutritional supplement of CoQ10 can reduce the frequency of migraine attacks by improving the energy production of cells as with riboflavin. Doses of 150 mg twice a day have been shown to be effective. Melatonin: Increasing evidence shows correlation between melatonin secretion and headache conditions. Melatonin supplementation has decreased headache intensity and duration. It is widely used as a sleep aid. Sleep is natures way of dealing with migraine. A dose of 3 mg is recommended to start for headaches including cluster headache. Higher doses up to 15 mg has been reviewed for use in Cluster headache and have been used. The rationale behind using melatonin for cluster is that many theories regarding the cause of Cluster headache center around the disruption of the normal circadian rhythm in the brain. This helps restore the normal circadian rhythm. Opal: Opal has a small amount of antihistamine and anti-inflammatory action which may help headache. It is primarily used for nausea and may aid in the absorption of other medications. HEADACHE DIET: Foods and beverages which may trigger migraine Note that only 20% of headache patients are food sensitive. You will know if you are food sensitiveif you get a headache consistently 20 minutes to 2 hours after eating a certain food. Only cut out a food if it causes headaches, otherwise you might remove foods you enjoy! What matters most for diet is to eat a well balanced healthy diet full of vegetables and low fat protein, and to not miss meals. Chocolate, other sweets ALL cheeses except cottage and cream cheese Dairy products, yogurt, sour cream, ice cream Liver Meat extracts (Bovril, Marmite, meat tenderizers) Meats or fish which have undergone aging, fermenting, pickling or smoking. These include: Hotdogs,salami,Lox,sausage, mortadellas,smoked salmon, pepperoni, Pickled barajas Pods of [place] (Sri [place]ankan beans, Tristanian pea pods, Mongolian (az) beans, last and navy beans Ripe avocado, ripe banana Yeast extracts or active yeast preparations such as Meadows's or Ba's (commercial bakes goodsare permitted) Tomato based foods, pizza (lasagna, etc.) MSG (monosodium glutamate) is disguised as many things; look for these common aliases: Monopotassium glutamate Autolysed yeast Hydrolysed protein Sodium caseinate flavorings all natural preservatives Nutrasweet Avoid all other foods that convincingly provoke headaches. Headache Prevention Strategies: 1. Maintain a headache diary; learn to identify and avoid triggers. Common triggers include: Emotional triggers: Emotional/Upset family or friends Emotional/Upset occupation Business reversal/success Anticipation anxiety Crisis-serious Post-crisis periodNew job/position Physical triggers: Vacation Day Weekend Strenuous Exercise High Altitude Location New Move Day Physical Illness Oversleep/Not enough sleep Weather changes Light: Photophobia or light sesnitivity treatment involves a balance between desensitization and reduction in overly strong input. Use dark polarized glasses outside, but not inside. Avoid bright or fluorescent light, but do not dim environment to the point that going into a normally lit room hurts. Consider FL- 41 tint lenses, which reduce the most irritating wavelengths without blocking too muchlight. These can be obtained at [employer] or [employer]: see list above. 2. Limit use of acute treatments (bwsz-cjw-ybkkqin medications, triptans, etc.) to no more than 2 days per week or 10 days per month to prevent medication overuse headache (rebound headache). 3. Follow a regular schedule (including weekends and holidays): Don't skip meals. Eat a balanced diet. 8 hours of sleep nightly. Minimize stress. Exercise 30 minutes per day. Being overweight is associated with a 5 times increased risk of chronic migraine. Keep well hydrated and drink 6-8 glasses of water per day. 4. Initiate non-pharmacologic measures at the earliest onset of your headache. Rest and quiet environment. Relax and reduce stress. Eoozadf6Nsrgb is a free sulaiman that can instruct you on some simple relaxtionand breathing techniques. Http://Poundworld is a free website that provides teaching videos on relaxation. Also, there are many apps that can be downloaded for mindful relaxation. An sulaiman called YOGA NIDRA will help walk you through mindfulness. Cold compresses. 5. Don't wait!! Take the maximum allowable dosage of prescribed medication at the first sign of migraine. 6. Compliance: Take prescribed medication regularly as directed and at the first sign of a migraine. 7. Communicate: Call your physician when problems arise, especially if your headaches change, increase in frequency/severity, or become associated with neurological symptoms (weakness, numbness, slurred speech, etc.). 8. Headache/pain management therapies: Consider various complementary methods, including medication, behavioral therapy, psychological counselling, biofeedback, massage therapy, acupuncture, dry needling, and other modalities. Such measures may reduce the need for medications. Counseling for pain ma nagement, where patients learn to function and ignore/minimize their pain, seems to work very well. 9. Recommend changing family's attention and focus away from patient's headaches. Instead, emphasize daily activities. If first question of day is 'How are your headaches/Do you have a headache today?', then patient will constantly think about headaches, thus making them worse. Goal is to re-directattention away from headaches, toward daily activities and other distractions. 10. Helpful Websites: www.AmericanHeadacheSociety.org www.migrainetrust.org www.headaches.org www.migraine.org.uk www.achenet.org 11. HEADACHE EXPECTATIONS: There are many types of headaches, and only a rare few in which complete relief can be expected. Ingeneral, there is no cure for headache, especially migraine based headaches. There is nothing available that completely prevents headaches from occurring, breaking through, or having periodic flare-ups and fluctuations. Regardless of what you are using on a daily basis for prevention, episodic heada ches should still be expected, and periods where frequency may escalate and fluctuate are unavoidable. There is no quick fix for most headaches. Furthermore, the longer you have had high frequency headaches (such as chronic daily headache), the longer it will likely take to expect any improvement. In fact, some people will never improve, regardless of how many medications or other treatments we try.Our treatment strategy is to evaluate for possible causes of your headache, although testing is usually always normal, even in cases of daily continuous headaches for years. Most types of headache such as migraine are electrical brain disorders (similar to how epilepsy is an electrical brain disorders). Therefore, there is no testing that will reveal this dysfunctional electrical circuitry suchon MRI, or other testing. We try to find a medication that may help lessen the frequency and/or severity of your headaches. The goal is not to completely stop them from happening, although if that happens, great! Different people respond to different medications, and some people just don't respond to anything, so it's usually a matter of trying different options. We can not predict if or when exac tly you will respond to a treatment that we provide. Preventive headache medications take 4-6 weeks to start working, and 2-3 months to see full effect,assuming you reach an effective dose. Therefore, calling or messaging frequently because you have aheadache flare prior to the 3 month apple is unlikely to change anything, and unfortunately there isnothing available that will expedite this, so please try to avoid this. Our recommendation will gene rally be to give it adequate time first. If you are unable to wait it out for medications to work, we can also try IV infusions for some temporary relief. O In general, the best that preventive medications or other treatments (including Botox) are able to offer in migraine management (variable in other headache types) is a 50% improvement in frequency and/or severity of headache. That is our goal, and any additional benefit is considered a bonus. Some people do significantly better than this, others do not get close to this. Therefore, if your headaches are not improving by at least 3 months on your preventive strategy, contact us and we can discuss further adjustments. Keep in mind that complete headache cure is not a realistic expectation. Our Team: The nursing staff, and medical assistants are a major part of YOUR TREATMENT TEAM and will be handling your phone calls, [employer] Messages and inquiries, if any. Unless explicitly told otherwise at the time of your office visit, your study results and ensuing treatment plans will be released via Qulsar and discussed during your follow-up appointment. MyChart: Please ask the schedulers to give you an activation code. The main way of communication isby [employer] rather than phone lines, so if you have not signed up, please do so. Qulsar is also theway that you can review your labs and testing. We are not able to contact everyone to tell them results are normal. If you do not hear back from us regarding testing you have had, it should be considered normal or within normal range. If you have any questions about the results, you are free to message us. Qulsar is meant for simple questions regarding medications, possible side effects, or other simplestraight forward questions in limited sentences, rather than multiple paragraphs of discussion. Qulsar is not meant for, or efficient for these complex questions, extensive questions, extensive medication adjustments, complex new symptoms or concerns. These issues beyond simple questions require afollow up visit with myself, one of our physician assistants, nurse practitioners, or a Virtual Visit via computer or smart phone, as detailed further down. Refills: Please pay attention to when your refills will need to be renewed. Due to the volume of phone callsdaily, this could potentially take a few days, although we certainly try to honor your refill requests as soon as we can. You should call at least 1 week in advance of needing a refill to ensure you do not run out of medication. Keep in mind that refill requests on Fridays may not be filled until the following week. In regards to blood work, testing, and radiology reports these are released automatically to the patients. We do not comment on most testing on Agnitus in a message or commentary unless there is a concern. You will not receive a message from me of the result unless there is a specific concern of the result I need you to address further in care with us or your primary medical team. Make sure to check your my chart email or sulaiman. As an international referral center for syncope, autonomic dysfunction, general neurology, headachecare, neuromuscular disease, and other related conditions, seeing patients from across the world, we do not have the resource of time or staffing to address inquiries for accommodations. As such, we do not provide or complete requests for work accommodations, FMLA, disability, or other such forms. We recommend seeking guidance through your primary care provider for these requests. We are happy toprovide our office notes from your visits and other tests or evaluations performed through our clinic, which can be made available upon request to assist you with this process. [facility] History of Present illness Narrative* Rahda Macdonald APRN.CNP - 05/04/2024 7:30 AM EDT Images from the original note were not included. [facility] for General Neurology New Patient visit Ms. Childers is a 54 year old female who has a history of endometriosis, fibromyalgia, hypertension,SHREE. Consultation requested by Dr. Anthony Nichols for an opinion regarding facial pain, headache disorder.My final recommendations will be communicated back to the requesting physician by way of shared Medical record or letter to requesting physician via US mail. Right handed. Unaccompanied. Current Headache treatment Preventative: reports that she used to take Topamax in 2015 for her headaches but did not find muchrelief. Metoprolol succinate (reports for AZ in October), magnesium oxide (reports taking for fibromyalgia) Abortive: Tylenol and tramadol Medications effective? Yes # of doses of abortive medications per month: reports that she takes about twice per week for headaches. Suspects that she was prescribed tramadol in 2009 for her fibromyalgia and was taking daily but has since reduced. Takes cyclobenzaprine each night at bedtime for prior surgery to foot. Was on meloxicam but had to stop after having AZ. Onset: reports that she has always been treated for sinus infections for years. Has headaches and fatigue. Reports that sinuses are finally cleared and she has seen 5 ENT providers. Total headache days per month: almost daily Total headache attacks per month: 2 per week Headache free days: Rare Duration of attacks: 1 to 2 days. Severity of headaches? 04/03 Onset to Peak: stay the same intensity. Starts bad. Location: once a month can have bilateral facial pain beneath the eyes in the cheeks and in the back of the head/neck. Otherwise reports that headache pain can cause pain all over her body. Aura: possible spots in the vision that she notices after onset of headache, reports short lasting and periodic, unable to determine how long they last. Accompanying symptoms: blurred vision, dizziness, photophobia. No ptosis, lacrimation, facial drooping. Quality:pressure in face under eyes. Aching around the side of head/neck. Worse with activity: Once per month may have to go lie down. Time missed from work or school: once per month can miss 1 to 2 days of work because she will try to sleep off her severe headache. Most common time of day for headache to begin:typically wakes with them. Positional changes: No Prodrome: None noticed. Triggers: None known. Cough/sneeze/valsalva as trigger: No Headache Risk Factors: Headache risk factors and/or co-morbidities + Neck Pain + Back Pain- low back pain for the last couple of years. Denies History of Motor Vehicle Accident + Fibromyalgia Denies History of Traumatic Brain Injury and/or Concussion Denies History of Syncope or loss of consciousness. Tobacco Use: quit smoking. Vapes. Alcohol Use: denies Caffeine: coffee 2 to 3 cups each day Other substances: denies Migraine or other headaches in the family: none Aneurysms in a first degree relative: none Brain tumors in the family: No Other neurological illness in the family: mother is having symptoms of dementia and is currently hospitalized for weakness, dizziness, passing out. Prior Therapies Aspirin Atenolol Bupropion Cyclobenzaprine Duloxetine Gabapentin Magnesium oxide Meloxicam Metoprolol succinate Naproxen Oxycodone/acetaminophen Sertraline Propranolol Pregabalin Topiramate Tramadol Amitriptyline Interested in acupuncture if unable to get Botox approved. Current Medications: cholecalciferol (VITAMIN D-3) 5,000 unit tab Take 5,000 Units by mouth once daily. acyclovir (ZOVIRAX) 400 mg tablet TAKE 1 TABLET BY MOUTH TWICE A DAY NEEDED FOR COLD SORES azelastine 0.1% nasal spray Use 1 [place] in each nostril two times a day. cyanocobalamin (VITAMIN B-12) 500 mcg tablet Take by mouth. VOLTAREN ARTHRITIS PAIN 1 % topical gel sodium fluoride (PREVIDENT 5000 PLUS) 1.1 % dental cream USE AT BEDTIME traMADol (ULTRAM) 50 mg tablet metoprolol succinate ER (TOPROL XL) 50 mg 24 hr tablet atorvastatin (LIPITOR) 40 mg tablet Take 1 tablet by mouth every afternoon. aspirin 81 mg chewable tablet CHEW 1 TABLET BY MOUTH EVERY DAY WITH A MEAL ticagrelor (BRILINTA) 90 mg tablet Take by mouth. sertraline (ZOLOFT) 50 mg tablet Take 50 mg by mouth three times a day. LYSINE ORAL Take by mouth. fluticasone propionate (FLONASE NASAL) Use in the nose. albuterol sulfate 90 mcg/actuation breath activated powder inhaler Inhale as instructed. cyclobenzaprine (FLEXERIL) 5 mg tablet Take 1 tablet by mouth daily at bedtime. magnesium oxide (MAG-OX) 400 mg (241.3 mg magnesium) tablet Take 1 tablet by mouth twice daily. montelukast (SINGULAIR) 10 mg tablet Take 1 tablet by mouth daily at bedtime. DULoxetine (CYMBALTA) 30 mg capsule Take 1 capsule by mouth once daily. ketoconazole (NIZORAL) 2 % cream APPLY TOPICALLY TO THE AFFECTED AREA DAILY pregabalin (LYRICA) 50 mg capsule Take 50 mg by mouth three times a day. Studies to Review: MRI Report - Impression Only No resulted procedures found. CT Brain Report - Impression No resulted procedures found. PAST MEDICAL HISTORY 09/2008: Abnormal Pap smear Comment: LGSIL and Positive HPV 04/2009: Abnormal Pap smear Comment: HGSIL 12/13/2008: Encounter for insertion or removal of intrauterine contraceptive device Comment: Mirena No date: Endometriosis 08/14/2012: Fibromyalgia No date: Hypertension No date: Palpitations 05/15/2010: S/P SHREE (total abdominal hysterectomy) PAST SURGICAL HISTORY No date: APPENDECTOMY 06/21/2009: CONIZATION CERVIX W/WO D&C RPR ELTRD EXC Comment: (LEEP) 12/13/2008: INSERT INTRAUTERINE DEVICE Comment: Annia 03/22/2010: IUD REMOVAL No date: LAPS ABD PRTM&OMENTUM DX W/WO SPEC BR/WA SPX Comment: Laparoscopy No date: TONSILLECTOMY PRIMARY/SECONDARY <AGE 12 Comment: Tonsillectomy 05/15/2010: TOTAL ABDOMINAL HYSTERECT W/WO RMVL TUBE OVARY Comment: Dr. Dodd; Dysplasia, Metrorrhagia, Dysmenorrhea 10/25/2023: TRANSV CAROTID STENT PLACEMT Comment: AZ 02/01/2010: VAGINOSCOPY ALLERGIES Allergen Reactions Codeine Vomiting 05/01/2024 Headache Questions ID Migraine Screener: 3 (Positive) Initial improvement of headache after botox injection at last visit: Not applicable, I did not havea botox injection at my last visit 05/01/2024 Migraine Specific QOL - Higher scores indicate better HRQL Role Function-Restrictive Transformed Score (range: 0-100) 42.86 Role Function-Preventive Transformed Score (range: 0-100) 60 Emotional Function Transformed Score (range: 0-100) 26.67 Family History: FAMILY HISTORY Problem Relation Age of Onset Hypertension Mother Coronary Artery Disease Maternal Grandfather Coronary Artery Disease Paternal Grandfather REVIEW OF SYSTEMS: Sleep: has trouble staying asleep. Usually wakes 2 to 3 times per night. Is unsure what wakes her. Usually will wake after 0200. Has been trying to go to bed earlier. Reports that cyclobenzaprine might help her sleep and she was on sleeping pills in the past but they caused grogginess the next day. Mood: better than it used to be. Can have trouble with anxiety. Had past SI, but denies current. Energy: always feels fatigued. Stress: reports that she has a lot of stress. Fever: denies Numbness/tingling: intermittent numbness/tingling in the hands that she attributes to CTS and wearsbraces periodically for. Reports that she went off the Lyrica because it made her feet feel numb and messed with her vision. Focal weakness: denies Diplopia: denies Dysarthria or dysphagia: denies Hearing changes: denies NEUROLOGIC: + Headache, See HPI PHYSICAL EXAMINATION: LMP 04/16/2010 General: well appearing, in no acute distress, alert, HEENT: Normocephalic/atraumatic., Musculoskeletal: No gross joint deformities. Neurological Examination: Cognition: The patient is alert and oriented times three Lucid and organized in conversation Able to tell detailed medical hx Speech is Normal in fluency volume and clarity Content and Syntax: Normal Comprehension: Normal, able to follow several step commands Cranial Nerves: Pupils are equal and reactive to light. Pupils normal in size Extraocular movements are grossly intact Good saccades and pursuits No nystagmus Hearing intact Good upgaze Visual chaparro are full to confrontation. Facial, motor and sensory exam is symmetric Equal v1,V2, V3 Tongue is in midline. No tongue fasciculation. Palate is upgoing bilaterally SCM and trapezius are full. Shoulder shrug intact Motor Exam: Upper extremity motor exam is 5/5 in deltoid, 5/5 triceps 5-/5biceps, 5/5 wrist extension, and 5/5 hand health spa manager. Finger extensor 5/5. Finger flexor 5/5. Pronation and Supination are full. Lower extremity is 5/5 in IP, 5/5 quadriceps, 5/5 hamstrings, 5/5 EHL, 5/5 TA and 5/5 gastrocnemius. Hip abductors and adductors are 5/5 Toe extensors and flexors are full bilaterally. Tone and bulk is normal and preserved bilaterally of arms Tone and bulk is normal and preserved bilaterally of legs No pes cavus, hammer toes, champagne legs The patient is without significant pronator drift. Sensation: Intact to light touch, vibration, pinprick to BUE and BLE. Toe proprioception intact bilaterally. Romberg's sign absent Reflexes: 2/4triceps, 2/4biceps, 2/4brachioradialis, 2/4knee jerk, tr/4ankle jerk and symmetric Coordination: Finger-to- nose-finger and [id number]-ys-rihg intact bilaterally. No ataxia of arms. No limb dysmetria ofarms and legs or trunk. No rigidity, cog wheeling, no bradykinesia. No tremors No extrapyramidal findings Gait: Normal station and stride. Able to tandem. Able to heel and toe walk. Good arm swing and body turn rises from chair well. Negative Cronin's sign. No clonus of ankles. Negative Babinski. Impression: Holden Childers is a 54 year old right handed female with pmhx of endometriosis, fibromyalgia, hypertension, SHREE. She is here today to establish care and treatment of headaches which began at least around 2016, possibly earlier. Headaches occur almost daily and last 1-2 days. Headaches are aching, pressure and rated 8/10. They have associated photophobia, dizziness, blurred vision. She is currently on Metoprolol succinate (reports for AZ in October), magnesium oxide (reports taking for fibromyalgia) for preventative and Tylenol and Tramadol for abortive. Her neurological examination is intact. The nature of migraine, headaches, and headache red flags has been discussed. Headaches can have migr krissy characteristics but the possibility of cervicogenic headaches cannot be excluded. Various episodic and prophylactic choices have been explained. She is interested in resuming duloxetine for prevention and starting Botox for prevention. Medication and potential side effects reviewed. We discussed that we cannot use triptan medications for abortive use because of myocardial infarction in October. She voices understanding and wishes to pursue only preventative treatment at this time. Plan: All options for treatment discussed. Preventative: duloxetine (Cymbalta) 30 mg daily, common side effects that may occur are nausea, sleepiness, headache, and sometimes paradoxically depression. We will submit for Botox. This does require prior authorization from insurance. Please reach out via Qulsar or telephone ([phone]) if you do not hear from us or your insurance regarding authorization in 3 weeks. We will get a precert for Onabotulinum Toxin A using the PREEMPT protocol. This patient meets FDA criteria for Chronic Migraine without aura, with mention of intractable migraine, so stated, without mention of status migrainosus. The migraine lasts for greater than 4 hours and has been chronic for more than three months. Onabotulinum Toxin A is FDA approved for chronic migraine. Her headaches are associated with blurred vision, dizziness for three or more months. Patient will not use in conjunction with CGRP preventive medications. Medication overuse, alternatediagnosis, confounding psychiatric or social stresses have been ruled out as the cause of headaches. Severity: moderate to severe Quality: throbbing Migraine days a month: 16 Headache days a month: 14 Total Headache days a month: 30 Headache free days a month: 0 The following preventative medications have been tried for at least three months without benefit ordiscontinued due to side effects: The following abortive medications have been tried but require high frequency use which can lead toMedication Overuse Headache: The patient has been assessed for disorders which could contribute to breathing or swallowing difficulty, and there is no contraindication with PREEMPT Botox. There is no documented allergic reaction/hypersensitivity to any botulinum toxin and there is no active infection at proposed injection site Prior Therapies Aspirin Atenolol Bupropion Cyclobenzaprine Duloxetine Gabapentin Magnesium oxide Meloxicam Metoprolol succinate Naproxen Oxycodone/acetaminophen Sertraline Propranolol Pregabalin Topiramate Tramadol Amitriptyline Cannot use triptan medications due to history of AZ this year. Follow-up: for BOTOX (pending authorization) I spent a total of 60 minutes on the date of the service which included preparing to see the patient, [id number] patient care, completing clinical documentation, obtaining and/or reviewing separately obtained history, performing a medically appropriate examination, counseling and educating the pat ient/family/caregiver, and ordering medications, tests, or procedures. Radha Macdonald APRN.CNP General Neurology [address] [place]. [address] Appointment: [phone] 1. This office note has been dictated and may contain minor typographic errors that escaped review 2. The nursing staff and medical assistants are a major part of YOUR TREATMENT TEAM and will be handling your phone calls and inquiries, if any. Unless explicitly told otherwise at the time of your office visit, your study results and ensuing treatment plans will be discussed during your follow-up appointment. If you do not have a follow-up appointment and wish to discuss any issues directly withme, please feel free to obtain one. Answers submitted by the patient for this visit: ID Migraine Screener (Submitted on 05/01/2024) Are you nauseated or sick to your stomach when you have a headache?: yes Does light bother you (a lot) when you have a headache?: yes [facility] NoteHNO ID: [id number] Author: RADHA MACDONALD APRN.CNP Service: ? Author Type: Nurse Practitioner Type: Progress Notes Filed: 05/04/2024 11:12 Note Text: [facility] for General Neurology New Patient visit Ms. Childers is a 54 year old female who has a history of endometriosis, fibromyalgia, hypertension, SHREE. Consultation requested by Dr. Anthony Nichols for an opinion regarding facial pain, headache disorder. My final recommendations will be communicated back to the requesting physician by way of shared Medical record or letter to requesting physician via US mail. Right handed. Unaccompanied. Current Headache treatment Preventative: reports that she used to take Topamax in 2016 for her headaches but did not find much relief. Metoprolol succinate (reports for AZ in October), magnesium oxide (reports taking for fibromyalgia) Abortive: Tylenol and tramadol Medications effective? Yes # of doses of abortive medications per month: reports that she takes about twice per week for headaches. Suspects that she was prescribed tramadol in 2009 for her fibromyalgia and was taking daily but has since reduced. Takes cyclobenzaprine each night at bedtime for prior surgery to foot. Was on meloxicam but had to stop after having AZ. Onset: reports that she has always been treated for sinus infections for years. Has headaches and fatigue. Reports that sinuses are finally cleared and she has seen 5 ENT providers. Total headache days per month: almost daily Total headache attacks per month: 2 per week Headache free days: Rare Duration of attacks: 1 to 2 days. Severity of headaches? 04/03 Onset to Peak: stay the same intensity. Starts bad. Location: once a month can have bilateral facial pain beneath the eyes in the cheeks and in the back of the head/neck. Otherwise reports that headache pain can cause pain all over her body. Aura: possible spots in the vision that she notices after onset of headache, reports short lasting and periodic, unable to determine how long they last. Accompanying symptoms: blurred vision, dizziness, photophobia. No ptosis, lacrimation, facial drooping. Quality:pressure in face under eyes. Aching around the side of head/neck. Worse with activity: Once per month may have to go lie down. Time missed from work or school: once per month can miss 1 to 2 days of work because she will try to sleep off her severe headache. Most common time of day for headache to begin:typically wakes with them. Positional changes: No Prodrome: None noticed. Triggers: None known. Cough/sneeze/valsalva as trigger: No Headache Risk Factors: Headache risk factors and/or co-morbidities + Neck Pain + Back Pain- low back pain for the last couple of years. Denies History of Motor Vehicle Accident + Fibromyalgia Denies History of Traumatic Brain Injury and/or Concussion Denies History of Syncope or loss of consciousness. Tobacco Use: quit smoking. Vapes. Alcohol Use: denies Caffeine: coffee 2 to 3 cups each day Other substances: denies Migraine or other headaches in the family: none Aneurysms in a first degree relative: none Brain tumors in the family: No Other neurological illness in the family: mother is having symptoms of dementia and is currently hospitalized for weakness, dizziness, passing out. Prior Therapies Aspirin Atenolol Bupropion Cyclobenzaprine Duloxetine Gabapentin Magnesium oxide Meloxicam Metoprolol succinate Naproxen Oxycodone/acetaminophen Sertraline Propranolol Pregabalin Topiramate Tramadol Amitriptyline Interested in acupuncture if unable to get Botox approved. Current Medications: cholecalciferol (VITAMIN D-3) 5,000 unit tab Take 5,000 Units by mouth once daily. acyclovir (ZOVIRAX) 400 mg tablet TAKE 1 TABLET BY MOUTH TWICE A DAY NEEDED FOR COLD SORES azelastine 0.1% nasal spray Use 1 [place] in each nostril two times a day. cyanocobalamin (VITAMIN B-12) 500 mcg tablet Take by mouth. VOLTAREN ARTHRITIS PAIN 1 % topical gel sodium fluoride (PREVIDENT 5000 PLUS) 1.1 % dental cream USE AT BEDTIME traMADol (ULTRAM) 50 mg tablet metoprolol succinate ER (TOPROL XL) 50 mg 24 hr tablet atorvastatin (LIPITOR) 40 mg tablet Take 1 tablet by mouth every afternoon. aspirin 81 mg chewable tablet CHEW 1 TABLET BY MOUTH EVERY DAY WITH A MEAL ticagrelor (BRILINTA) 90 mg tablet Take by mouth. sertraline (ZOLOFT) 50 mg tablet Take 50 mg by mouth three times a day. LYSINE ORAL Take by mouth. fluticasone propionate (FLONASE NASAL) Use in the nose. albuterol sulfate 90 mcg/actuation breath activated powder inhaler Inhale as instructed. cyclobenzaprine (FLEXERIL) 5 mg tablet Take 1 tablet by mouth daily at bedtime. magnesium oxide (MAG-OX) 400 mg (241.3 mg magnesium) tablet Take 1 tablet by mouth twice daily. montelukast (SINGULAIR) 10 mg tablet Take 1 tablet by mouth daily at bedtime. DULoxetine (CYMBALTA) 30 mg c (more content not included)...[facility]08-23-2024 NoteHNO ID: [id number] Author: ANTHONY NICHOLS MD Service: ? Author Type: Physician Type: Progress Notes Filed: 04/22/2024 14:45 Note Text: SECTION OF RHINOLOGY, SINUS AND SKULL BASE SURGERY Head and Neck [place], [facility] INITIAL VISIT NOTE This patient is a new patient. They are seen at the request of: No referring provider defined for this encounter. CC: CRS and CT scan HPI: Holden Childers is a 54 year old female presenting for evaluation of CRS. Pt was last seen my MINERVA Doty on 03/30/24 reporting sinus pain and pressure located under the eyes and anabaptism. CT sinus was taken on 04/13/24. Has been using Flonase, Astelin, and saline rinse daily for the last 2 months. Pt feels that the past few years has had symptoms of pain and pressure and will feel extremely fatigued. Every few months. Pt will have ear pain every day and headache every day. Pt was seen in 2016 was seen by a neurologists and was treated for migraines. Pt will have these episodes about 2-4 days every few months. She is fatigued during these episodes and has to call off work. Pt had an excruciating headache the day of her CT scan. Has been taking time off of work. No nasal symptoms. CT sinus IMPRESSION 04/13/24: Minimal scattered mucosal thickening in the bilateral paranasal sinuses with no air-fluid levels identified. The paranasal sinus drainage pathways are patent. SNOT-22 Nasal Score Ear/Facial Score Sleep Score Function Score Emotion Score Total Score 03/29/2024 16 14 12 13 7 62 01/24/2024 9 15 11 11 5 51 PAST MEDICAL HISTORY: PAST MEDICAL HISTORY 09/2008: Abnormal Pap smear Comment: LGSIL and Positive HPV 04/2009: Abnormal Pap smear Comment: HGSIL 12/13/2008: Encounter for insertion or removal of intrauterine contraceptive device Comment: Mirena No date: Endometriosis 08/14/2012: Fibromyalgia No date: Hypertension No date: Palpitations 05/15/2010: S/P SHREE (total abdominal hysterectomy) PAST SURGICAL HISTORY: PAST SURGICAL HISTORY No date: APPENDECTOMY 06/21/2009: CONIZATION CERVIX W/WO DANDC RPR ELTRD EXC Comment: (LEEP) 12/13/2008: INSERT INTRAUTERINE DEVICE Comment: Mirena 03/22/2010: IUD REMOVAL No date: LAPS ABD PRTMANDOMENTUM DX W/WO SPEC BR/WA SPX Comment: Laparoscopy No date: TONSILLECTOMY PRIMARY/SECONDARY Comment: Tonsillectomy 05/15/2010: TOTAL ABDOMINAL HYSTERECT W/WO RMVL TUBE OVARY Comment: Dr. Dodd; Dysplasia, Metrorrhagia, Dysmenorrhea 10/25/2023: TRANSV CAROTID STENT PLACEMT Comment: [place] 02/01/2010: VAGINOSCOPY FAMILY HISTORY Problem Relation Age of Onset Hypertension Mother Coronary Artery Disease Maternal Grandfather Coronary Artery Disease Paternal Grandfather Social History Tobacco Use Smoking status: Former Current packs/day: 0.00 Average packs/day: 0.8 packs/day for 27.0 years (20.3 ttl pk-yrs) Types: Cigarettes Start date: 10/24/1996 Quit date: 10/25/2023 Years since quittin.4 Smokeless tobacco: Never Tobacco comments: Started smoking age 26 Vaping Use Vaping status: Some Days Substances: Nicotine, Flavoring Substance Use Topics Alcohol use: No Drug use: No MEDICATIONS: Current Outpatient Medications Medication Sig acyclovir (ZOVIRAX) 400 mg tablet TAKE 1 TABLET BY MOUTH TWICE A DAY NEEDED FOR COLD SORES azelastine 0.1% nasal spray Use 1 [place] in each nostril two times a day. cyanocobalamin (VITAMIN B-12) 500 mcg tablet Take by mouth. VOLTAREN ARTHRITIS PAIN 1 % topical gel sodium fluoride (PREVIDENT 5000 PLUS) 1.1 % dental cream USE AT BEDTIME ketoconazole (NIZORAL) 2 % cream APPLY TOPICALLY TO THE AFFECTED AREA DAILY traMADol (ULTRAM) 50 mg tablet metoprolol succinate ER (TOPROL XL) 50 mg 24 hr tablet atorvastatin (LIPITOR) 40 mg tablet Take 1 tablet by mouth every afternoon. aspirin 81 mg chewable tablet CHEW 1 TABLET BY MOUTH EVERY DAY WITH A MEAL ticagrelor (BRILINTA) 90 mg tablet Take by mouth. pregabalin (LYRICA) 50 mg capsule Take 50 mg by mouth three times a day. sertraline (ZOLOFT) 50 mg tablet Take 50 mg by mouth three times a day. LYSINE ORAL Take by mouth. fluticasone propionate (FLONASE NASAL) Use in the nose. albuterol sulfate 90 mcg/actuation breath activated powder inhaler Inhale as instructed. cyclobenzaprine (FLEXERIL) 5 mg tablet Take 1 tablet by mouth daily at bedtime. magnesium oxide (MAG-OX) 400 mg (241.3 mg magnesium) tablet Take 1 tablet by mouth twice daily. montelukast (SINGULAIR) 10 mg tablet Take 1 tablet by mouth daily at bedtime. No current facility-administered medications for this visit. ALLERGIES: ALLERGIES Allergen Reactions Codeine Vomiting PHYSICAL EXAM: GENERAL: No acute distress, calm and cooperative, alert and oriented. HEAD/FACE: Normocephalic, atraumatic, facial structures stable and symmetric. EYES: Extraocular movements intact. No ocular lesions noted. EARS: No auricular deformity noted. ORAL CAVITY/OROP (more content not included)...[facility] 04-16-2024 History of Present illness Narrative* Anthony Nichols MD - 04/16/2024 9:49 AM EDT Images from the original note were not included. SECTION OF RHINOLOGY, SINUS AND SKULL BASE SURGERY Head and Neck [place], [facility] INITIAL VISIT NOTE This patient is a new patient. They are seen at the request of: No referring provider defined for this encounter. CC: CRS and CT scan HPI: Holden Childers is a 54 year old female presenting for evaluation of CRS. Pt was last seen my MINERVA Doty on 03/30/24 reporting sinus pain and pressure located under the eyes and anabaptism. CT sinus was taken on 04/13/24. Has been using Flonase, Astelin, and saline rinse daily for the last 2 months. Pt feels that the past few years has had symptoms of pain and pressure and will feel extremely fatigued. Every few months. Pt will have ear pain every day and headache every day. Pt was seen in 2016 was seen by a neurologists and was treated for migraines. Pt will have these episodes about 2-4 daysevery few months. She is fatigued during these episodes and has to call off work. Pt had an excruciating headache the day of her CT scan. Has been taking time off of work. No nasal symptoms. CT sinus IMPRESSION 04/13/24: Minimal scattered mucosal thickening in the bilateral paranasal sinuses with no air-fluid levels identified. The paranasal sinus drainage pathways are patent. SNOT-22 Nasal Score Ear/Facial Score Sleep Score Function Score Emotion Score Total Score 03/29/2024 16 14 12 13 7 62 01/24/2024 9 15 11 11 5 51 PAST MEDICAL HISTORY: PAST MEDICAL HISTORY 09/2008: Abnormal Pap smear Comment: LGSIL and Positive HPV 04/2009: Abnormal Pap smear Comment: HGSIL 12/13/2008: Encounter for insertion or removal of intrauterine contraceptive device Comment: Mirena No date: Endometriosis 08/14/2012: Fibromyalgia No date: Hypertension No date: Palpitations 05/15/2010: S/P SHREE (total abdominal hysterectomy) PAST SURGICAL HISTORY: PAST SURGICAL HISTORY No date: APPENDECTOMY 06/21/2009: CONIZATION CERVIX W/WO D&C RPR ELTRD EXC Comment: (LEEP) 12/13/2008: INSERT INTRAUTERINE DEVICE Comment: Mirena 03/22/2010: IUD REMOVAL No date: LAPS ABD PRTM&OMENTUM DX W/WO SPEC BR/WA SPX Comment: Laparoscopy No date: TONSILLECTOMY PRIMARY/SECONDARY <AGE 12 Comment: Tonsillectomy 05/15/2010: TOTAL ABDOMINAL HYSTERECT W/WO RMVL TUBE OVARY Comment: Dr. Dodd; Dysplasia, Metrorrhagia, Dysmenorrhea 10/25/2023: TRANSV CAROTID STENT PLACEMT Comment: [place] 02/01/2010: VAGINOSCOPY FAMILY HISTORY Problem Relation Age of Onset Hypertension Mother Coronary Artery Disease Maternal Grandfather Coronary Artery Disease Paternal Grandfather Social History Tobacco Use Smoking status: Former Current packs/day: 0.00 Average packs/day: 0.8 packs/day for 27.0 years (20.3 ttl pk-yrs) Types: Cigarettes Start date: 10/24/1996 Quit date: 10/25/2023 Years since quittin.4 Smokeless tobacco: Never Tobacco comments: Started smoking age 26 Vaping Use Vaping status: Some Days Substances: Nicotine, Flavoring Substance Use Topics Alcohol use: No Drug use: No MEDICATIONS: Current Outpatient Medications Medication Sig acyclovir (ZOVIRAX) 400 mg tablet TAKE 1 TABLET BY MOUTH TWICE A DAY NEEDED FOR COLD SORES azelastine 0.1% nasal spray Use 1 [place] in each nostril two times a day. cyanocobalamin (VITAMIN B-12) 500 mcg tablet Take by mouth. VOLTAREN ARTHRITIS PAIN 1 % topical gel sodium fluoride (PREVIDENT 5000 PLUS) 1.1 % dental cream USE AT BEDTIME ketoconazole (NIZORAL) 2 % cream APPLY TOPICALLY TO THE AFFECTED AREA DAILY traMADol (ULTRAM) 50 mg tablet metoprolol succinate ER (TOPROL XL) 50 mg 24 hr tablet atorvastatin (LIPITOR) 40 mg tablet Take 1 tablet by mouth every afternoon. aspirin 81 mg chewable tablet CHEW 1 TABLET BY MOUTH EVERY DAY WITH A MEAL ticagrelor (BRILINTA) 90 mg tablet Take by mouth. pregabalin (LYRICA) 50 mg capsule Take 50 mg by mouth three times a day. sertraline (ZOLOFT) 50 mg tablet Take 50 mg by mouth three times a day. LYSINE ORAL Take by mouth. fluticasone propionate (FLONASE NASAL) Use in the nose. albuterol sulfate 90 mcg/actuation breath activated powder inhaler Inhale as instructed. cyclobenzaprine (FLEXERIL) 5 mg tablet Take 1 tablet by mouth daily at bedtime. magnesium oxide (MAG-OX) 400 mg (241.3 mg magnesium) tablet Take 1 tablet by mouth twice daily. montelukast (SINGULAIR) 10 mg tablet Take 1 tablet by mouth daily at bedtime. No current facility-administered medications for this visit. ALLERGIES: ALLERGIES Allergen Reactions Codeine Vomiting PHYSICAL EXAM: GENERAL: No acute distress, calm and cooperative, alert and oriented. HEAD/FACE: Normocephalic, atraumatic, facial structures stable and symmetric. EYES: Extraocular movements intact. No ocular lesions noted. EARS: No auricular deformity noted. ORAL CAVITY/OROPHARYNX: No mucosal lesions noted, tongue/uvula midline, tonsils unremarkable. NECK: No obvious masses, full range of motion present. RESPIRATORY: Unlabored breathing on room air. Voice is strong. No stridor or other noisy breathing. NEUROLOGIC: Cranial nerves 3-12 are grossly intact. PROCEDURE NOTE: Procedure: Nasal endoscopy Indication: headaches and facial pressure Findings: After topical application of lidocaine and Afrin sprays for anesthesia and decongestion, rigid nasal endoscopy was performed. This revealed right septal deviation bilateral middle meatus are clear. The patient tolerated the procedure well. ASSESSMENT: Holden Childers is a 54 year old female with: Pt does not have chronic sinusitis Pt does have facial pain and headaches and fatigue PLAN: Nasal endoscopy today to assess for infection demonstrates no infection CT scan was performed while pt was symptomatic and demonstrates no infection Consult headache clinic Follow up with pcp for severe fatigue and body aches not related to sinuses Dea Menrad APRN.ROLANDO Medical Decision Making: Problems: Moderate: New problem with uncertain prognosis Risk: Low: Low risk from testing/treatment Medical Decision Making Level: 3 - Low Raj Terrazas Disclosure: Dr. Nichols receives payments from [employer] and/or [employer] for conducting educational activities and/or consulting. An [employer] and/or [employer] product may be used in your care. Dr. Nichols does not receive any money for products he/she or any other [facility] physicians prescribe or use. Dr. Nichols's choice on which product to use in your case was not influencedby his/her relationship with [employer] and/or [employer]. Your physician selected the product that in his or her hands is believed to be the best option for your treatment. documented in this encounterK[facility]08-20-2024 History of Present illness Narrative* Michelle Maria RT(R) - 04/13/2024 8:00 AM EDT Radiology Service Progress Note PATIENT NAME: Holden Childers DATE OF SERVICE: April 13, 2024 TIME: 4:03 PM PATIENT IDENTITY VERIFICATION COMPLETED USING TWO (2) IDENTIFIERS: Name and Date of confirmedby patient verbally. FALL SCREENING: Has the patient had 2 falls in the last year or 1 fall with injury or currently using an Ambulatory Assistive Device (Walker, Cane, Wheelchair, Crutches, etc.)? No PATIENT GENDER DATA: Female. status: : No status: NO. PATIENT RELEVANT IMPLANT DATA REVIEWED: Yes PATIENT PRESENTS WITH AN IMPLANTABLE OR ATTACHED EMERGENCY OPERATOR: No RADIOLOGY DEPARTMENT: CT; Exam(s) Completed: Sinus PERIPHERAL IV DATA: Not applicable SIGNED BY: RT Manav(Rai) April 13, 2024 4:03 PM documented in this encounterKettering [facility]08-20-2024 NoteHNO ID: [id number] Author: MICHELLE MARIA RT(R) Service: ? Author Type: Ballroom Dance Instructor Type: Progress Notes Filed: 04/13/2024 16:03 Note Text: Radiology Service Progress Note PATIENT NAME: Holden Childers DATE OF SERVICE: April 13, 2024 TIME: 4:03 PM PATIENT IDENTITY VERIFICATION COMPLETED USING TWO (2) IDENTIFIERS: Name and Date of confirmed by patient verbally. FALL SCREENING: Has the patient had 2 falls in the last year or 1 fall with injury or currently using an Ambulatory Assistive Device (Walker, Cane, Wheelchair, Crutches, etc.)? No PATIENT GENDER DATA: Female. status: : No status: NO. PATIENT RELEVANT IMPLANT DATA REVIEWED: Yes PATIENT PRESENTS WITH AN IMPLANTABLE OR ATTACHED EMERGENCY OPERATOR: No RADIOLOGY DEPARTMENT: CT; Exam(s) Completed: Sinus PERIPHERAL IV DATA: Not applicable SIGNED BY: RT Manav(R) April 13, 2024 4:03 [facility]08-15-2024 NoteHNO ID: [id number] Author: IRIS GONZALEZ PA-C Service: ? Author Type: Physician Ceramic Sprayer Type: Progress Notes Filed: 04/08/2024 10:45 Note Text: [facility] DEPARTMENT OF PULMONARY MEDICINE Date: April 08, 2024 Patient Name: Holden Childers PRIMARY CARE PROVIDER: Bautista Manzano MD REASON FOR VISIT: Patient presents with: Sleep Apnea HPI: Follow up visit. Dr. Arita last saw the patient on 12/18/2023. PMH: [place] in October 2023, s/p PCI of the RCA at [place], HTN, fatigue, fibromyalgia, and anxiety. Former 20.25 pack year smoker, quit 10/2023. Patient had a PSG done 03/09/2024 secondary to excessive daytime sleepiness. No sleep related breathing disorders present. AHI 3.1. Today, patient complains of excessive daytime sleepiness. If she does not have to go to work she states she could sleep for 20 hours. No issues with falling asleep. Typically goes to bed around 10-10:30 am. Wakes at 5 am. Has a hard time waking and getting out of bed in the morning. No snoring. Frequently naps if she doesn't have to work. Does not feel refreshed after napping. Has vivid dreams at night, but not while napping. Feels tired while driving. 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 IMMUNIZATIONS: There is no immunization history on file for this patient. PAST MEDICAL HISTORY 09/2008: Abnormal Pap smear Comment: LGSIL and Positive HPV 04/2009: Abnormal Pap smear Comment: HGSIL 12/13/2008: Encounter for insertion or removal of intrauterine contraceptive device Comment: Mirena No date: Endometriosis 08/14/2012: Fibromyalgia No date: Hypertension No date: Palpitations 05/15/2010: S/P SHREE (total abdominal hysterectomy) PAST SURGICAL HISTORY No date: APPENDECTOMY 06/21/2009: CONIZATION CERVIX W/WO DANDC RPR ELTRD EXC Comment: (LEEP) 12/13/2008: INSERT INTRAUTERINE DEVICE Comment: Mirena 03/22/2010: IUD REMOVAL No date: LAPS ABD PRTMANDOMENTUM DX W/WO SPEC BR/WA SPX Comment: Laparoscopy No date: TONSILLECTOMY PRIMARY/SECONDARY Comment: Tonsillectomy 05/15/2010: TOTAL ABDOMINAL HYSTERECT W/WO RMVL TUBE OVARY Comment: Dr. Dodd; Dysplasia, Metrorrhagia, Dysmenorrhea 10/25/2023: TRANSV CAROTID STENT PLACEMT Comment: [place] 02/01/2010: VAGINOSCOPY Social History Tobacco Use Smoking status: Former Packs/day: 0.75 Years: 27.00 Additional pack years: 0.00 Total pack years: 20.25 Types: Cigarettes Quit date: 10/25/2023 Years since quittin.4 Smokeless tobacco: Never Tobacco comments: Started smoking age 26 Vaping Use Vaping Use: Some days Substances: Nicotine, Flavoring Substance Use Topics Alcohol use: No Drug use: No FAMILY HISTORY Problem Relation Age of Onset Hypertension Mother Coronary Artery Disease Maternal Grandfather Coronary Artery Disease Paternal Grandfather REVIEW OF SYSTEMS: General: Denies fever/chills, malaise, unintentional weight loss HEENT: Denies headaches, nosebleeds, congestion Neck: Denies lumps, pain, significant neck swelling Respiratory: See HPI Cardiovascular: Denies chest pain, syncope, palpitations GI: Denies abdominal pain, nausea, vomiting, diarrhea : Denies dysuria, hematuria Musculoskeletal: Denies joint pain or swelling Extremities: Denies calf pain, swelling Skin: Denies rash, itching Neuro: Denies headaches, dizziness VITALS:BP 100/70 Pulse 64 Ht 5' 5 (1.65m) Wt 126 lb (57.2kg) SpO2 98% LMP 04/16/2010 BMI 20.97 kg/(m2). PHYSICAL EXAMINATION: General: Awake AND alert, no distress, speaking in full sentences HEENT: NCAT, MMM Neck: Supple, no rigidity. Trachea is midline Heart: HR regular, S1/S2 Lungs: Non-labored breathing. Clear breath sounds bilaterally Abdomen: Soft, non-tender/non-distended. Bowel sounds present Extremities: No edema Skin: Warm, dry Neurological: Moves all extremities x4. Grossly normal cognition and motor function Laboratory and Imaging: Last Spirometry No resulted procedures found. Arterial blood gas: No results found for: PH, PCO2, PO2, HCO3, BE, LACT CT Chest other findings: Last CT Chest - Impression Only No resulted procedures found. Last XR Chest - Impression Only No resulted procedures found. ASSESSMENT/PLAN: 1. At risk for narcolepsy - ICD9: V15.89, ICD10: Z91.89 (primary diagnosis) Will proceed with PSG with [facility] - POLYSOMNOGRAM (PSG) - MULTIPLE SLEEP LATENCY TEST - TOXICOLOGY SCREEN, ROUTINE URINE 2. Daytime sleepiness - ICD9: 780.54, ICD10: R40.0 See #1. Check thyroid. - THYROID STIMULATING HORMONE - T4 FREE/FREE THYROXINE - T3, FREE 3. Tobacco use disorder - ICD9: 305.1, ICD10: F17.200 Patient recently stopped smoking. Enrolled in lung cancer screening. Patient is encouraged to call with any questions, concerns or new issues prior to next scheduled visit. Some documentation from previous encounter of 12/18/2023 wa (more content not included)...[facility]08-15-2024 History of Present illness Narrative * Iris Gonzalez PA-C - 04/08/2024 8:56 AM EDT Images from the original note were not included. [facility] DEPARTMENT OF PULMONARY MEDICINE Date: April 08, 2024 Patient Name: Holden Childers PRIMARY CARE PROVIDER: Bautista Manzano MD REASON FOR VISIT: Patient presents with: Sleep Apnea HPI: Follow up visit. Dr. Arita last saw the patient on 12/18/2023. PMH: [place] in [place]23, s/p PCI of the RCA at [place], HTN, fatigue, fibromyalgia, and anxiety. Former 20.25 pack year smoker, quit 10/2023. Patient had a PSG done 03/09/2024 secondary to excessive daytime sleepiness. No sleep related breathing disorders present. AHI 3.1. Today, patient complains of excessive daytime sleepiness. If she does not have to go to work she states she could sleep for 20 hours. No issues with falling asleep. Typically goes to bed around 10-10:30 am. Wakes at 5 am. Has a hard time waking and getting out of bed in the morning. No snoring. Frequently naps if she doesn't have to work. Does not feel refreshed after napping. Has vivid dreams at night, but not while napping. Feels tired while driving. 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 IMMUNIZATIONS: There is no immunization history on file for this patient. PAST MEDICAL HISTORY 09/2008: Abnormal Pap smear Comment: LGSIL and Positive HPV 04/2009: Abnormal Pap smear Comment: HGSIL 12/13/2008: Encounter for insertion or removal of intrauterine contraceptive device Comment: Mirena No date: Endometriosis 08/14/2012: Fibromyalgia No date: Hypertension No date: Palpitations 05/15/2010: S/P SHREE (total abdominal hysterectomy) PAST SURGICAL HISTORY No date: APPENDECTOMY 06/21/2009: CONIZATION CERVIX W/WO D&C RPR ELTRD EXC Comment: (LEEP) 12/13/2008: INSERT INTRAUTERINE DEVICE Comment: Mirena 03/22/2010: IUD REMOVAL No date: LAPS ABD PRTM&OMENTUM DX W/WO SPEC BR/WA SPX Comment: Laparoscopy No date: TONSILLECTOMY PRIMARY/SECONDARY <AGE 12 Comment: Tonsillectomy 05/15/2010: TOTAL ABDOMINAL HYSTERECT W/WO RMVL TUBE OVARY Comment: Dr. Dodd; Dysplasia, Metrorrhagia, Dysmenorrhea 10/25/2023: TRANSV CAROTID STENT PLACEMT Comment: [place] 02/01/2010: VAGINOSCOPY Social History Tobacco Use Smoking status: Former Packs/day: 0.75 Years: 27.00 Additional pack years: 0.00 Total pack years: 20.25 Types: Cigarettes Quit date: 10/25/2023 Years since quittin.4 Smokeless tobacco: Never Tobacco comments: Started smoking age 26 Vaping Use Vaping Use: Some days Substances: Nicotine, Flavoring Substance Use Topics Alcohol use: No Drug use: No FAMILY HISTORY Problem Relation Age of Onset Hypertension Mother Coronary Artery Disease Maternal Grandfather Coronary Artery Disease Paternal Grandfather REVIEW OF SYSTEMS: General: Denies fever/chills, malaise, unintentional weight loss HEENT: Denies headaches, nosebleeds, congestion Neck: Denies lumps, pain, significant neck swelling Respiratory: See HPI Cardiovascular: Denies chest pain, syncope, palpitations GI: Denies abdominal pain, nausea, vomiting, diarrhea : Denies dysuria, hematuria Musculoskeletal: Denies joint pain or swelling Extremities: Denies calf pain, swelling Skin: Denies rash, itching Neuro: Denies headaches, dizziness VITALS:BP 100/70 Pulse 64 Ht 5' 5 (1.65m) Wt 126 lb (57.2kg) SpO2 98% LMP 04/16/2010 BMI 20.97 kg/(m^2). PHYSICAL EXAMINATION: General: Awake & alert, no distress, speaking in full sentences HEENT: NCAT, MMM Neck: Supple, no rigidity. Trachea is midline Heart: HR regular, S1/S2 Lungs: Non-labored breathing. Clear breath sounds bilaterally Abdomen: Soft, non-tender/non-distended. Bowel sounds present Extremities: No edema Skin: Warm, dry Neurological: Moves all extremities x4. Grossly normal cognition and motor function Laboratory and Imaging: Last Spirometry No resulted procedures found. Arterial blood gas: No results found for: PH, PCO2, PO2, HCO3, BE, LACT CT Chest other findings: Last CT Chest - Impression Only No resulted procedures found. Last XR Chest - Impression Only No resulted procedures found. ASSESSMENT/PLAN: 1. At risk for narcolepsy - ICD9: V15.89, ICD10: Z91.89 (primary diagnosis) Will proceed with PSG with [facility] - POLYSOMNOGRAM (PSG) - MULTIPLE SLEEP LATENCY TEST - TOXICOLOGY SCREEN, ROUTINE URINE 2. Daytime sleepiness - ICD9: 780.54, ICD10: R40.0 See #1. Check thyroid. - THYROID STIMULATING HORMONE - T4 FREE/FREE THYROXINE - T3, FREE 3. Tobacco use disorder - ICD9: 305.1, ICD10: F17.200 Patient recently stopped smoking. Enrolled in lung cancer screening. Patient is encouraged to call with any questions, concerns or new issues prior to next scheduled visit. Some documentation from previous encounter of 12/18/2023 was copied and pasted after being reviewedand edited as appropriate for today's visit. Iris Gonzalez PA-C documented in this encounterKet[facility]08-06-2024 Instructions* Patient Instructions* Gely Gottlieb PA - 03/30/2024 1:35 PM EDT Images from the original note were not included. -CT sinus scan, will MyChart with results -Follow up with Rhinology Dr. Anthony Mancia APRN.DIRECTOR PRODUCT -Follow up with Dentist for TMJ evaluation Ear Cleaning Instructions: You can use oil in your ears to help with ear wax build up or itchy ears: baby oil, mineral oil, sweet oil, or squalene oil -Oils will soften ear wax, making it easier for your ear to expel. They can also be used before earcleanings as it will help the suction not become clogged. -AVOID ANY OILS WITH FOOD IN IT (ex: Garlic, onions, herbs, etc) -Use a few drops once or twice a week, let it sit in your ears and turn your head to tip the drops out. -You can also use 1-2 drops in each ear at night, place a cotton ball in your ear, and take it off in the morning. You can also use Debrox or hydrogen peroxide 3% once or twice a month for ear cleaning. -Place a capful in ear, let it sit for a few minutes, then turn your head to drain the liquid out. -It may bubble and cause some dizziness. - Use of objects in ears such as Q tips are not recommended as this can push ear wax further in andagainst your ear drum. Dentistry [phone]. Ask to schedule a TMD consultation. TMJ exercises: Isometric jaw opening Isometric jaw exercises are particularly useful for patients with temporomandibular joint dysfunction syndrome. These exercises are performed by applying resistance with an open or loosely fisted hand. In the isometric jaw opening exercise, the patient begins with her mouth open about an inch. The r esistance and muscle contraction are held for 5 to 10 seconds before relaxing. This is repeated five times per session. Exercises can be performed with moderate resistance applied several sessions per day, or with maximum resistance one session per day. Isometric jaw forward thrust The isometric jaw forward thrust exercise is performed by pushing the jaw forward against the hand,holding and then relaxing. This is repeated five times per session. TMJ consultation: Please call [phone] to schedule TMJ visit. Please ask about insurance coverage for this evaluation. Sometimes, insurance will not cover this evaluation. documented in this encounterKettering [facility]08-06-2024 NoteHNO ID: [id number] Author: GELY GOTTLIEB PA Service: ? Author Type: Physician Ceramic Sprayer Type: Progress Notes Filed: 03/30/2024 13:53 Note Text: [facility] CC: Holden Atwood Liseth is a 53 year old female who is self referred for sinus concerns. Assessment: Chronic sinusitis, unspecified location (primary encounter diagnosis) Plan: -03/30/2024 audiogram: Mild to moderate sensorineural hearing loss bilaterally, worse in right ear. Mild asymmetry. Word recognition score 90% bilaterally. Right tympanogram mildly positive. Left tympanogram WNL. -Patient counseled on using Debrox or baby/mineral/sweet/squalene oil for at home cerumen maintenance or pruritic ears. -Follow up with dentistry for TMJ evaluation. -Continue nasal sprays and saline rinses. -CT sinus scan, will MyChart with results. -Follow up with Rhinology. Gely Gottlieb PA-C HPI: Holden Childers is a 53 year old female who comes in for follow up evaluation of sinus concerns. Has been using Flonase, Astelin, and saline rinse daily for the last 2 months. Still endorsing sinus pain and pressure as well as clear PND. Pain and pressure under eyes and over temples. Bilateral ear fullness, pruritus. Denies nasal congestion. Reports a CT sinus in 2016 that was clear. Saw Neurology and tried Topimax which helped headaches but not sinus symptoms. Not currently taking. Endorses bruxism, jaw clenching. Last seen by me on 01/26/2024. Recall, Patient reports sinus concerns for the past several years. Endorses sinus pain and pressure constantly. Points to under her eyes bilaterally. Sometimes in her temples as well. Endorses thick post-nasal drip. Her ears never feels clear--feels like she's in a bubble all the time. Right otalgia. Always tired, bad body aches. Every 2 months has to take a few days off work because she feels so sick. Denies nasal congestion, no trouble breathing out of her nostrils. History of seasonal allergies--dust mites, ragweed, mold. Uses saline rinses twice weekly. Tries to use Flonase daily, ends up using every other day. Takes Singulair at night. PCP just called in Astelin, but has not filled it yet. No history of sinus surgery. ALLERGIES Allergen Reactions - Codeine Vomiting Current Outpatient Medications Medication Sig - acyclovir (ZOVIRAX) 400 mg tablet TAKE 1 TABLET BY MOUTH TWICE A DAY NEEDED FOR COLD SORES - azelastine 0.1% nasal spray Use 1 [place] in each nostril two times a day. - Chlorhexidine Gluconate (PERIDEX) 0.12 % solution SWISH AND SPIT 1/2 OUNCE FOR 30 SECONDS AFTER BREAKFAST AND BEFORE BEDTIME.DO NOT SWALLOW - cyanocobalamin (VITAMIN B-12) 500 mcg tablet Take by mouth. - VOLTAREN ARTHRITIS PAIN 1 % topical gel - sodium fluoride (PREVIDENT 5000 PLUS) 1.1 % dental cream USE AT BEDTIME - ketoconazole (NIZORAL) 2 % cream APPLY TOPICALLY TO THE AFFECTED AREA DAILY - traMADol (ULTRAM) 50 mg tablet - metoprolol succinate ER (TOPROL XL) 50 mg 24 hr tablet - atorvastatin (LIPITOR) 40 mg tablet Take 1 tablet by mouth every afternoon. - aspirin 81 mg chewable tablet CHEW 1 TABLET BY MOUTH EVERY DAY WITH A MEAL - ticagrelor (BRILINTA) 90 mg tablet Take by mouth. - pregabalin (LYRICA) 50 mg capsule Take 50 mg by mouth three times a day. - sertraline (ZOLOFT) 50 mg tablet Take 50 mg by mouth three times a day. - LYSINE ORAL Take by mouth. - fluticasone propionate (FLONASE NASAL) Use in the nose. - albuterol sulfate 90 mcg/actuation breath activated powder inhaler Inhale as instructed. - cyclobenzaprine (FLEXERIL) 5 mg tablet Take 1 tablet by mouth daily at bedtime. - magnesium oxide (MAG-OX) 400 mg (241.3 mg magnesium) tablet Take 1 tablet by mouth twice daily. - montelukast (SINGULAIR) 10 mg tablet Take 1 tablet by mouth daily at bedtime. - Lactobac no.41/Bifidobact no.7 (PROBIOTIC-10 ORAL) Take by mouth. (Patient not taking: Reported on 01/23/2024) - nicotine (NICODERM CQ) 14 mg/24 hr Apply 1 Patch as directed every 24 hours. No current facility-administered medications for this visit. PAST MEDICAL HISTORY 09/2008: Abnormal Pap smear Comment: LGSIL and Positive HPV 04/2009: Abnormal Pap smear Comment: HGSIL 12/13/2008: Encounter for insertion or removal of intrauterine contraceptive device Comment: Mirena No date: Endometriosis 08/14/2012: Fibromyalgia No date: Hypertension No date: Palpitations 05/15/2010: S/P SHREE (total abdominal hysterectomy) PAST SURGICAL HISTORY No date: APPENDECTOMY 06/21/2009: CONIZATION CERVIX W/WO DANDC RPR ELTRD EXC Comment: (LEEP) 12/13/2008: INSERT INTRAUTERINE DEVICE Comment: Mirena 03/22/2010: IUD REMOVAL No date: LAPS ABD PRTMANDOMENTUM DX W/WO SPEC BR/WA SPX Comment: Laparoscopy No date: TONSILLECTOMY PRIMARY/SECONDARY Comment: Tonsillectomy 05/15/2010: TOTAL ABDOMINAL HYSTERECT W/WO RMVL TUBE OVARY Comment: Dr. Dodd; Dysplasia, Metrorrhagia, Dysmenorrhea (more content not included)...[facility]08-06-2024 History of Present illness Narrative* Gely Gottlieb PA - 03/30/2024 1:03 PM EDT Images from the original note were not included. [facility] CC: Holden Childers is a 53 year old female who is self referred for sinus concerns. Assessment: Chronic sinusitis, unspecified location (primary encounter diagnosis) Plan: -03/30/2024 audiogram: Mild to moderate sensorineural hearing loss bilaterally, worse in right ear. Mild asymmetry. Word recognition score 90% bilaterally. Right tympanogram mildly positive. Left tympanogram WNL. -Patient counseled on using Debrox or baby/mineral/sweet/squalene oil for at home cerumen maintenance or pruritic ears. -Follow up with dentistry for TMJ evaluation. -Continue nasal sprays and saline rinses. -CT sinus scan, will MyChart with results. -Follow up with Rhinology. Gely Gottlieb PA-C HPI: Holden Childers is a 53 year old female who comes in for follow up evaluation of sinus concerns. Has been using Flonase, Astelin, and saline rinse daily for the last 2 months. Still endorsing sinus pain and pressure as well as clear PND. Pain and pressure under eyes and overtemples. Bilateral ear fullness, pruritus. Denies nasal congestion. Reports a CT sinus in 2016 that was clear. Saw Neurology and tried Topimax which helped headaches but not sinus symptoms. Not currently taking. Endorses bruxism, jaw clenching. Last seen by me on 01/26/2024. Recall, Patient reports sinus concerns for the past several years. Endorses sinus pain and pressure constantly. Points to under her eyes bilaterally. Sometimes in hertemples as well. Endorses thick post-nasal drip. Her ears never feels clear--feels like she's in a bubble all the time. Right otalgia. Always tired, bad body aches. Every 2 months has to take a few days off work because she feels so sick. Denies nasal congestion, no trouble breathing out of her nostrils. History of seasonal allergies--dust mites, ragweed, mold. Uses saline rinses twice weekly. Tries to use Flonase daily, ends up using every other day. Takes Singulair at night. PCP just called in [facility], but has not filled it yet. No history of sinus surgery. ALLERGIES Allergen Reactions Codeine Vomiting Current Outpatient Medications Medication Sig acyclovir (ZOVIRAX) 400 mg tablet TAKE 1 TABLET BY MOUTH TWICE A DAY NEEDED FOR COLD SORES azelastine 0.1% nasal spray Use 1 [place] in each nostril two times a day. Chlorhexidine Gluconate (PERIDEX) 0.12 % solution SWISH AND SPIT 1/2 OUNCE FOR 30 SECONDS AFTER BREAKFAST AND BEFORE BEDTIME.DO NOT SWALLOW cyanocobalamin (VITAMIN B-12) 500 mcg tablet Take by mouth. VOLTAREN ARTHRITIS PAIN 1 % topical gel sodium fluoride (PREVIDENT 5000 PLUS) 1.1 % dental cream USE AT BEDTIME ketoconazole (NIZORAL) 2 % cream APPLY TOPICALLY TO THE AFFECTED AREA DAILY traMADol (ULTRAM) 50 mg tablet metoprolol succinate ER (TOPROL XL) 50 mg 24 hr tablet atorvastatin (LIPITOR) 40 mg tablet Take 1 tablet by mouth every afternoon. aspirin 81 mg chewable tablet CHEW 1 TABLET BY MOUTH EVERY DAY WITH A MEAL ticagrelor (BRILINTA) 90 mg tablet Take by mouth. pregabalin (LYRICA) 50 mg capsule Take 50 mg by mouth three times a day. sertraline (ZOLOFT) 50 mg tablet Take 50 mg by mouth three times a day. LYSINE ORAL Take by mouth. fluticasone propionate (FLONASE NASAL) Use in the nose. albuterol sulfate 90 mcg/actuation breath activated powder inhaler Inhale as instructed. cyclobenzaprine (FLEXERIL) 5 mg tablet Take 1 tablet by mouth daily at bedtime. magnesium oxide (MAG-OX) 400 mg (241.3 mg magnesium) tablet Take 1 tablet by mouth twice daily. montelukast (SINGULAIR) 10 mg tablet Take 1 tablet by mouth daily at bedtime. Lactobac no.41/Bifidobact no.7 (PROBIOTIC-10 ORAL) Take by mouth. (Patient not taking: Reported on 01/23/2024) nicotine (NICODERM CQ) 14 mg/24 hr Apply 1 Patch as directed every 24 hours. No current facility-administered medications for this visit. PAST MEDICAL HISTORY 09/2008: Abnormal Pap smear Comment: LGSIL and Positive HPV 04/2009: Abnormal Pap smear Comment: HGSIL 12/13/2008: Encounter for insertion or removal of intrauterine contraceptive device Comment: Mirena No date: Endometriosis 08/14/2012: Fibromyalgia No date: Hypertension No date: Palpitations 05/15/2010: S/P SHREE (total abdominal hysterectomy) PAST SURGICAL HISTORY No date: APPENDECTOMY 06/21/2009: CONIZATION CERVIX W/WO D&C RPR ELTRD EXC Comment: (LEEP) 12/13/2008: INSERT INTRAUTERINE DEVICE Comment: Mirena 03/22/2010: IUD REMOVAL No date: LAPS ABD PRTM&OMENTUM DX W/WO SPEC BR/WA SPX Comment: Laparoscopy No date: TONSILLECTOMY PRIMARY/SECONDARY <AGE 12 Comment: Tonsillectomy 05/15/2010: TOTAL ABDOMINAL HYSTERECT W/WO RMVL TUBE OVARY Comment: Dr. Dodd; Dysplasia, Metrorrhagia, Dysmenorrhea 10/25/2023: TRANSV CAROTID STENT PLACEMT Comment: [place] 02/01/2010: VAGINOSCOPY Social History: Social History Tobacco Use Smoking status: Former Packs/day: 0.75 Years: 27.00 Additional pack years: 0.00 Total pack years: 20.25 Types: Cigarettes Quit date: 10/25/2023 Years since quittin.4 Smokeless tobacco: Never Tobacco comments: Started smoking age 26 Vaping Use Vaping Use: Some days Substances: Nicotine, Flavoring Substance Use Topics Alcohol use: No Drug use: No FAMILY HISTORY Problem Relation Age of Onset Hypertension Mother Coronary Artery Disease Maternal Grandfather Coronary Artery Disease Paternal Grandfather PHYSICAL EXAM: On physical examination Holden Childers is a well-developed, well nourished female. Her speech is normal and her voice is clear. Mental status revealed patient to be alert and oriented. Mood is appropriate. Details of the physical examination: CRANIAL NERVE EXAM: II: Pupillary reflexes normal III, IV, : EOM normal V: 1,2,3: normal sensation VII: Normal strength in all divisions. VIII: Hearing grossly normal. IX, X:palatal elevation and sensation XI: Shoulder strength normal XII: Tongue mobility normal HEAD AND FACE: Physical examination of the head, neck, external nose, external ears, mouth and facefails to demonstrate any significant abnormality or asymmetry to critical face to face observation.Skin and scalp are normal. EARS: RT Canal: patent RT Drum: intact RT Pneumotoscopy: mobile LT Canal: patent LT Drum: intact LT Pneumotoscopy: mobile NOSE: Examination of the nasal cavity revealed a septum which is midline. The mucosa is erythematous, and the visible turbinates are hypertrophied on anterior rhinoscopy. There is no purulence or polyps. Negative [place] Maneuver bilaterally. MASTICATION: The remaining teeth appear intact. The lips and gums are without lesions. ORAL CAVITY AND OROPHARYNX: The oral mucosa, hard and soft palates, tongue, tonsil area, and posterior pharyngeal wall are without lesions. Tonsils +1 bilaterally. NECK: The neck appears symmetric without scars. On palpation, there are no masses or lymphadenopathy. The thyroid is not palpable and was free of masses. No salivary gland masses or hypertrophy is noted. REVIEW OF RADIOLOGICAL FILMS AND RECORDS: 03/30/2024 audiology note and hearing test: Mild to moderate sensorineural hearing loss bilaterally, worse in right ear. Mild asymmetry. Word recognition score 90% bilaterally. Right tympanogram mildlypositive. Left tympanogram WNL. This note contains portions of a previous note copied forward. Note was reviewed and appropriate changes were made. Gely Gottlieb PA-C Medical Decision Making: Problems: Low: Stable chronic illness Data: Unique test result(s) reviewed: 1 Unique test(s) ordered: 1 Risk: Low: Low risk from testing/treatment Medical Decision Making Level: 3 - Low documented in this encounterK[facility]24 NoteHNO ID: [id number] Author: ELIZABETH MEDRANO AuD, CCC-A Service: ? Author Type: Computer Trainer Type: Progress Notes Filed: 03/30/2024 13:16 Note Text: [facility] [place] [facility] Section of Audiology AUDIOLOGIC EVALUATION REPORT Name: Holden Childers [facility]#: [id number] Date of Service: 03/30/2024 Date of : 1970 Age: [age] year old Referred by: MINERVA Doty Referred for: Evaluation of the cause of disorder of hearing, tinnitus, or balance. Referral documented: Under recommendations in referring provider's progress note Patient's major complaints: Reduced hearing in both ears, Dizziness/vertigo/imbalance, Pressure/fullness in both ears, reports that ears always feel blocked, neck always feels sore, ears hurt several days per week, no pain today Holden Childers was seen for an initial audiologic evaluation. Refer to audiogram under Procedures tab for results. IMPRESSIONS RIGHT EAR: Sensorineural hearing loss consistent with presbycusis LEFT EAR: Sensorineural hearing loss consistent with presbycusis AUDIOLOGIC EVALUATION Following is a brief interpretation of the obtained findings from the audiologic evaluation. Refer to the Auditory Test Record for complete audiometric results. The patient was counseled about the test findings and appropriate audiologic recommendations were made. SUMMARY: Audiogram can be viewed under Procedures tab. OTOSCOPY RIGHT EAR: Otoscopic inspection revealed ear canal was clear with an identifiable cone of light. LEFT EAR: Otoscopic inspection revealed ear canal was clear with an identifiable cone of light. TYMPANOMETRY Description of procedure: This test is an objective evaluation of middle ear function. CPT code: 19792 RIGHT EAR: Normal ME function. LEFT EAR: Normal ME function. ACOUSTIC REFLEXES Description of procedure: This test is an objective measure of auditory and facial nerve pathways. CPT code: 44025, 73514 RIGHT EAR PROBE EAR: (ipsi right stimulus ear; contralateral left stimulus ear): Acoustic Reflex Pattern Did not test Acoustic Reflex Decay (left stimulus ear): Did not test. LEFT EAR PROBE EAR: (ipsi left stimulus ear; contralateral right stimulus ear): Acoustic Reflex Pattern Did not test Acoustic Reflex Decay (right stimulus ear):Did not test. PURE TONE AUDIOMETRY AND SPEECH TESTING Description of procedure: This test is an objective evaluation hearing sensitivity via air and bone conduction and speech recognition testing. CPT code:71364 RIGHT EAR: Hearing Sensitivity: borderline WNL sloping to mild/moderate HF SNHL Word Recognition Score: Excellent (90-100%). WRS is consistent with hearing sensitivity. Words were presented at 60 dB HL is above (greater than or equal to 60 dB HL) intensity level for average conversational speech. The NU-6 Ordered by Difficulty Word List (10 words) was used for testing. LEFT EAR: Hearing Sensitivity: borderline WNL sloping to moderate HF SNHL Word Recognition Score: Excellent (90-100%). WRS is consistent with hearing sensitivity. Words were presented at 60 dB HL which is above (greater than or equal to 60 dB HL) intensity level for average conversational speech. The NU-6 Ordered by Difficulty Word List (10 words) was used for testing. RECOMMENDATIONS * Continue medical follow-up with Gely Gottlieb PA-C . * Re-evaluation as medically indicated. * Return if a change in hearing is noted. * Call [phone] to schedule an appointment to assess your need for hearing aids. Request a HAE appointment. Radha Martini CCC-A copied to: Gely Gottlieb PA-C [place] Abbrev- iation Definition Degree of hearing sensitivity dB range WNL within normal limits WNL 0 - 20 SNHL sensorineural hearing loss Mild 20-40 CHL conductive hearing loss Moderate 40-55 MHL mixed hearing loss Moderately-Severe 55-70 WRS word recognition score Severe 70-90 ME middle ear Profound 90 + TM tympanic membraneAshtabula [facility]08-06-[facility] History of Present illness Narrative* Elizabeth Medrano AuD, CCC-A - 03/30/2024 12:27 PM EDT Images from the original note were not included. [facility] [place] [facility] Section of Audiology AUDIOLOGIC EVALUATION REPORT Name: Holden Childers CC#: [id number] Date of Service: 03/30/2024 Date of : 1970 Age: [age] year old Referred by: MINERVA Doty Referred for: Evaluation of the cause of disorder of hearing, tinnitus, or balance. Referral documented: Under recommendations in referring provider's progress note Patient's major complaints: Reduced hearing in both ears, Dizziness/vertigo/imbalance, Pressure/fullness in both ears, reports that ears always feel blocked, neck always feels sore, ears hurt severaldays per week, no pain today Holden Childers was seen for an initial audiologic evaluation. Refer to audiogram under Procedures tab for results. IMPRESSIONS RIGHT EAR: Sensorineural hearing loss consistent with presbycusis LEFT EAR: Sensorineural hearing loss consistent with presbycusis AUDIOLOGIC EVALUATION Following is a brief interpretation of the obtained findings from the audiologic evaluation. Refer to the Auditory Test Record for complete audiometric results. The patient was counseled about the test findings and appropriate audiologic recommendations were made. SUMMARY: Audiogram can be viewed under Procedures tab. OTOSCOPY RIGHT EAR: Otoscopic inspection revealed ear canal was clear with an identifiable cone of light. LEFT EAR: Otoscopic inspection revealed ear canal was clear with an identifiable cone of light. TYMPANOMETRY Description of procedure: This test is an objective evaluation of middle ear function. CPT code: 07298 RIGHT EAR: Normal ME function. LEFT EAR: Normal ME function. ACOUSTIC REFLEXES Description of procedure: This test is an objective measure of auditory and facial nerve pathways. CPT code: 76937, 56370 RIGHT EAR PROBE EAR: (ipsi right stimulus ear; contralateral left stimulus ear): Acoustic Reflex Pattern Did not test Acoustic Reflex Decay (left stimulus ear): Did not test. LEFT EAR PROBE EAR: (ipsi left stimulus ear; contralateral right stimulus ear): Acoustic Reflex Pattern Did not test Acoustic Reflex Decay (right stimulus ear):Did not test. PURE TONE AUDIOMETRY AND SPEECH TESTING Description of procedure: This test is an objective evaluation hearing sensitivity via air and boneconduction and speech recognition testing. CPT code:65623 RIGHT EAR: Hearing Sensitivity: borderline WNL sloping to mild/moderate HF SNHL Word Recognition Score: Excellent (90-100%). WRS is consistent with hearing sensitivity. Words werepresented at 60 dB HL is above (greater than or equal to 60 dB HL) intensity level for average conversational speech. The NU-6 Ordered by Difficulty Word List (10 words) was used for testing. LEFT EAR: Hearing Sensitivity: borderline WNL sloping to moderate HF SNHL Word Recognition Score: Excellent (90-100%). WRS is consistent with hearing sensitivity. Words werepresented at 60 dB HL which is above (greater than or equal to 60 dB HL) intensity level for average conversational speech. The NU-6 Ordered by Difficulty Word List (10 words) was used for testing. RECOMMENDATIONS * Continue medical follow-up with Gely Gottlieb PA-C . * Re-evaluation as medically indicated. * Return if a change in hearing is noted. * Call [phone] to schedule an appointment to assess your need for hearing aids. Request a HAE appointment. Radha Martini, CCC-A copied to: Gely Gottlieb, PA-C [place] Abbrev- iation Definition Degree of hearing sensitivity dB range WNL within normal limits WNL 0 - 20 SNHL sensorineural hearing loss Mild 20-40 CHL conductive hearing loss Moderate 40-55 MHL mixed hearing loss Moderately-Severe 55-70 WRS word recognition score Severe 70-90 ME middle ear Profound 90 + TM tympanic membrane documented in this encounterK[facility]tering [facility]07-18-2024 NoteHNO ID: [id number] Author: JOSE STANLEY APRN.CNP Service: ? Author Type: Nurse Practitioner Type: Progress Notes Filed: 03/11/2024 13:14 Note Text: Nontoxic-appearing female presents urgent care with chest pain shortness of breath difficulty taking deep breath. Patient states today when she was walking around her house she became easily winded. Presents today for evaluation concerned due to new shortness of breath. States recently she did have a heart attack this year. Presents today for evaluation. With presenting symptoms and no URI-like symptoms I recommend patient be seen ED for further valuation care. States will be seen at [facility]. Verbalized understand agrees with plan of care. Jose Stanley APRN.CNPAshtabula County [facility] Center07-18-2024 History of Present illness Narrative* Jose Stanley APRN.CNP - 03/11/2024 1:04 PM EDT Nontoxic-appearing female presents urgent care with chest pain shortness of breath difficulty taking deep breath. Patient states today when she was walking around her house she became easily winded. Presents today for evaluation concerned due to new shortness of breath. States recently she did havea heart attack this year. Presents today for evaluation. With presenting symptoms and no URI-like symptoms I recommend patient be seen ED for further valuation care. States will be seen at [facility]. Verbalized understand agrees with plan of care. Jose Stanley APRN.CNP documented in this encounterKettering [facility]07-17-2024 NoteHNO ID: [id number] Author: ?, ?, ? Service: ? Author Type: ? Type: Progress Notes Filed: 03/10/2024 02:12 Note Text: Sleep Study Check-In Documentation Date: March 10, 2024 Name: Holden Childers Patient was accompanied by Self. Location: [facility] Latex allergy: No Tape allergy: No Current medications were reviewed with the patient:Yes Sleep aid taken by patient for the sleep study: [place] of sleep aid: Not Applicable Procedure was explained to the patient and all questions were answered. Knowledge Program (KP): KP was not completed in [place] by patient and accepted Study type: Polysomnogram Adverse Event: No (If yes create a new abstract) Comments: Patient was advised to follow up with their ordering provider regarding test results Deborah Robert [facility]07-17-2024 History of Present illness Narrative* Deborah Dalal - 03/10/2024 2:11 AM EDT Sleep Study Check-In Documentation Date: March 10, 2024 Name: Holden Childers Patient was accompanied by Self. Location: [facility] Latex allergy: No Tape allergy: No Current medications were reviewed with the patient:Yes Sleep aid taken by patient for the sleep study: [place] of sleep aid: Not Applicable Procedure was explained to the patient and all questions were answered. Knowledge Program (KP): KP was not completed in [place] by patient and accepted Study type: Polysomnogram Adverse Event: No (If yes create a new abstract) Comments: Patient was advised to follow up with their ordering provider regarding test results Deborah Dalal documented in this encounterKettering [facility]07-10-2024 Hospital Discharge instructions Patient Education 03/03/2024 17:47:17 Chest Pain, Uncertain Cause Uncertain Causes of Chest Pain Chest pain can happen for a number of reasons. Sometimes the cause can't be determined. If your condition does not seem serious, and your pain does not appear to be coming from your heart, your healthcare provider may recommend watching it closely. Sometimes the signs of a serious problem take moretime to appear. Many problems not related to your heart can cause chest pain. These include: Musculoskeletal. Costochondritis is an inflammation of the tissues around the ribs that can occur from trauma or overuse injuries, or a strain of the muscles of the chest wall Respiratory. Pneumonia, collapsed lung (pneumothorax), or inflammation of the lining of the chest and lungs (pleurisy) Gastrointestinal. Esophageal reflux, heartburn, ulcers, or gallbladder disease Anxiety and panic disorders Nerve compression and inflammation Rare miscellaneous problems such as aortic aneurysm (a swelling of the large artery coming out of the heart) or pulmonary embolism (a blood clot in the lungs) Home care After your visit, follow these recommendations: Rest today and avoid strenuous activity. Take any prescribed medicine as directed. Be aware of any recurrent chest pain and notice any changes Follow-up care Follow up with your healthcare provider if you do not start to feel better within 24 hours, or as advised. Call 911 Call 911 if any of these occur: A change in the type of pain: if it feels different, becomes more severe, lasts longer, or begins to spread into your shoulder, arm, neck, jaw or back Shortness of breath or increased pain with breathing Weakness, dizziness, or fainting Rapid heart beat Crushing sensation in your chest When to seek medical advice Call your healthcare provider right away if any of the following occur: Cough with dark colored sputum (phlegm) or blood Fever of 100.4 F (38 C) or higher, or as directed by your healthcare provider Swelling, pain or redness in one leg [id number] [employer]. [address] [place] [id number]. All rights reserved. This information is not intended as a substitute for professional medical care. Always follow yourhealthcare professional's instructions. 03/03/2024 17:47:15 Chest Wall Pain, Costochondritis Chest Wall Pain: Costochondritis The chest pain that you have had today is caused by costochondritis. This condition is caused by aninflammation of the cartilage joining your ribs to your breastbone. It is not caused by heart or lung problems. Your healthcare team has made sure that the chest pain you feel is not from a life threatening cause of chest pain such as heart attack, collapsed lung, blood clot in the lung, tear in the aorta, or esophageal rupture. The inflammation may have been brought on by a blow to the chest, lifting heavy objects, intense exercise, or an illness that made you cough and sneeze a lot. It often occurs during times of emotional stress. It can be painful, but it is not dangerous. It usually goesaway in 1 to 2 weeks. But it may happen again. Rarely, a more serious condition may cause symptoms similar to costochondritis. That s why it s important to watch for the warning signs listed below. Home care Follow these guidelines when caring for yourself at home: If you feel that emotional stress is a cause of your condition, try to figure out the sources of that stress. It may not be obvious. Learn ways to deal with the stress in your life. This can include regular exercise, muscle relaxation, meditation, or simply taking time out for yourself. You may use acetaminophen, ibuprofen, or naproxen to control pain, unless another pain medicine wasprescribed. If you have liver or kidney disease or ever had a stomach ulcer, talk with your healthcare provider before using these medicines. You can also help ease pain by using a hot, wet compress or heating pad. Use this with or without amedicated skin cream that helps relieves pain. Do stretching exercise as advised by your provider. Take any prescribed medicines as directed. Follow-up care Follow up with your healthcare provider, or as advised, if you do not start to get better in the next 2 days. When to seek medical advice Call your healthcare provider right away if any of these occur: A change in the type of pain. Call if it feels different, becomes more serious, lasts longer, or spreads into your shoulder, arm, neck, jaw, or back. Shortness of breath or pain gets worse when you breathe Weakness, dizziness, or fainting Cough with dark-colored sputum (phlegm) or blood Abdominal pain Dark red or black stools Fever of 100.4 F (38 C) or higher, or as directed by your healthcare provider [id number] [employer]. [address] [place] [address]. All rights reserved. This information is not intended as a substitute for professional medical care. Always follow yourhealthcare professional's instructions. Follow Up Care 03/03/2024 10:46:36 With:BAUTISTA MANZANO MD Address: [address] [address]- When:2-4 days [facility] 07-10-2024 Emergency department Discharge summary Discharge Instructions Thank you for allowing [facility] to assist you with your healthcare needs. The following is importantdischarge information regarding your hospital visit. What to Do Next Instructions from Your Care Team No qualifying data available. Post Acute Orders No qualifying data available. You Need to Schedule the Following Appointments Follow Up with BAUTISTA MANZANO MD When:Within 2-4 days Where:[address] [address]- Allergies codeine nause Medications Please ask your primary doctor or pharmacist before taking any other medication not listed, including over the counter drugs, herbal medications, vitamins and or supplements as they may interact [facility]. What How Much When Instructions Last Dose Unchanged albuterol (albuterol MDI (90 mcg/ inh) [facility] freeinhalation aerosol) 1 puff(s) by inhalation Every 4 hours as needed for as needed for wheezing Unchanged aspirin ([facility] Childrens Aspirin 81 mg oral tablet, (chewable)) 1 tab(s) by mouth Once a day with a meal Duration: 90 Days Unchanged atorvastatin (Lipitor 40 mg oral tablet) 1 tab(s) by mouth Once a day Duration: 90 Days Unchanged cyclobenzaprine (cyclobenzaprine 10 mg oral tablet) 1 tab(s) by mouth Once a day Unchanged fluticasone nasal (Flonase 50 mcg/ inh nasal spray) 1 spray(s) each nostril Two (2) times a day Unchanged herbal/ nutritional product (Probiotic) Unchanged magnesium oxide (magnesium oxide 400 mg oral capsule) 1 cap by mouth Two (2) times a day Unchanged metoprolol (metoprolol succinate 25 mg oral TABLET extended release) 1 tab(s) by mouth Two (2) times a day Unchanged montelukast (montelukast 10 mg oral tablet) 1 tab(s) by mouth Once a day Unchanged multivitamin (Vitamin B Complex 100) Unchanged multivitamin (Vitamin D and K oral tablet) Unchanged nitrofurantoin (nitrofurantoin macrocrystals 100 mg oral capsule) 1 cap by mouth Four (4) times a day Duration: 7 Days Unchanged pregabalin (Lyrica 150 mg oral capsule) 1 cap by mouth Once a day Unchanged sertraline (sertraline 100 mg oral tablet) 1 tab(s) by mouth Two (2) times a day Unchanged ticagrelor (ticagrelor 90 mg oral tablet) 1 tab(s) by mouth Every 12 hours Duration: 90 Days Please take this list to your next doctor s visit. Bring all medications you take, including over the counter medications, herbals and other supplements with you to your doctor s visit. Patients and families are reminded to discard old lists and to update any records with all medication providers or retail pharmacies. Education Materials Uncertain Causes of Chest Pain Chest pain can happen for a number of reasons. Sometimes the cause can't be determined. If your condition does not seem serious, and your pain does not appear to be coming from your heart, your healthcare provider may recommend watching it closely. Sometimes the signs of a serious problem take moretime to appear. Many problems not related to your heart can cause chest pain. These include: Musculoskeletal. Costochondritis is an inflammation of the tissues around the ribs that can occur from trauma or overuse injuries, or a strain of the muscles of the chest wall Respiratory. Pneumonia, collapsed lung (pneumothorax), or inflammation of the lining of the chest and lungs (pleurisy) Gastrointestinal. Esophageal reflux, heartburn, ulcers, or gallbladder disease Anxiety and panic disorders Nerve compression and inflammation Rare miscellaneous problems such as aortic aneurysm (a swelling of the large artery coming out of the heart) or pulmonary embolism (a blood clot in the lungs) Home care After your visit, follow these recommendations: Rest today and avoid strenuous activity. Take any prescribed medicine as directed. Be aware of any recurrent chest pain and notice any changes Follow-up care Follow up with your healthcare provider if you do not start to feel better within 24 hours, or as advised. Call 911 Call 911 if any of these occur: A change in the type of pain: if it feels different, becomes more severe, lasts longer, or begins to spread into your shoulder, arm, neck, jaw or back Shortness of breath or increased pain with breathing Weakness, dizziness, or fainting Rapid heart beat Crushing sensation in your chest When to seek medical advice Call your healthcare provider right away if any of the following occur: Cough with dark colored sputum (phlegm) or blood Fever of 100.4 F (38 C) or higher, or as directed by your healthcare provider Swelling, pain or redness in one leg [phone] [employer]. [address] [place] [address]. All rights reserved. This information is not intended as a substitute for professional medical care. Always follow yourhealthcare professional's instructions. Chest Wall Pain: Costochondritis The chest pain that you have had today is caused by costochondritis. This condition is caused by aninflammation of the cartilage joining your ribs to your breastbone. It is not caused by heart or lung problems. Your healthcare team has made sure that the chest pain you feel is not from a life threatening cause of chest pain such as heart attack, collapsed lung, blood clot in the lung, tear in the aorta, or esophageal rupture. The inflammation may have been brought on by a blow to the chest, lifting heavy objects, intense exercise, or an illness that made you cough and sneeze a lot. It often occurs during times of emotional stress. It can be painful, but it is not dangerous. It usually goesaway in 1 to 2 weeks. But it may happen again. Rarely, a more serious condition may cause symptoms similar to costochondritis. That s why it s important to watch for the warning signs listed below. Home care Follow these guidelines when caring for yourself at home: If you feel that emotional stress is a cause of your condition, try to figure out the sources of that stress. It may not be obvious. Learn ways to deal with the stress in your life. This can include regular exercise, muscle relaxation, meditation, or simply taking time out for yourself. You may use acetaminophen, ibuprofen, or naproxen to control pain, unless another pain medicine wasprescribed. If you have liver or kidney disease or ever had a stomach ulcer, talk with your healthcare provider before using these medicines. You can also help ease pain by using a hot, wet compress or heating pad. Use this with or without amedicated skin cream that helps relieves pain. Do stretching exercise as advised by your provider. Take any prescribed medicines as directed. Follow-up care Follow up with your healthcare provider, or as advised, if you do not start to get better in the next 2 days. When to seek medical advice Call your healthcare provider right away if any of these occur: A change in the type of pain. Call if it feels different, becomes more serious, lasts longer, or spreads into your shoulder, arm, neck, jaw, or back. Shortness of breath or pain gets worse when you breathe Weakness, dizziness, or fainting Cough with dark-colored sputum (phlegm) or blood Abdominal pain Dark red or black stools Fever of 100.4 F (38 C) or higher, or as directed by your healthcare provider [phone] [employer]. [address] [place] [address]. All rights reserved. This information is not intended as a substitute for professional medical care. Always follow yourhealthcare professional's instructions. Additional Information VACCINATE! IT SAVES LIVES! Members of the community who have not yet received the COVID-19 vaccine and would like to receive it can visit one of [facility] vaccine clinics. There are many vaccine clinic locations within the [facility]. For locations and available times, please visit [email or web address].[email or web address]/. It is important to note that some COVID mobile vaccine clinics are held outdoors and may be canceled in rainy or stormy conditions. To learn more about pediatric vaccinations (ages 5-11), we invite you to visit the [facility] webpage. [email or web address]/[email or web address] learn more about the COVID-19 vaccine, we invite you to visit the CDC website for a list of frequently asked questions. https://www.cdc.gov/coronavirus/2019-ncov/vaccines/faq.html [facility] [employer] Patient Portal Access Instructions: Stay connected with your healthcare team and access your personal medical information anytime with the [employer] Patient Portal. If you would like a full copy of your medical records please contact the [facility] Medical Records Department Friday through Friday between 8a.m. and 4:30p.m. Please follow the directions below to access the portal: 1.Access the email account you provided upon registration to the [facility].2.Look for an invitation email from [facility].3.Open the email and access the invitation link: [facility]itation to [facility]4.Fill in the required chaparro to create your account. Sign into [email or web address] with your username and password that you created in the above steps to stay up to date. You can then view a summary of results, a summary of your visits, and the ability to download your summaries to your computer or send the information securely to a physician. Remember that your healthcare information is confidential, so carefully consider who you will allow to register on the [employer] Patient Portal for access to your information. You can also access the [employer] Patient Portal on the [employer]aiman. Simply click on Health Records under [employer] and then click on the [employer] logo. HOW TO SAFELY DISPOSE OF PRESCRIPTION MEDICATIONS Please use one of the following methods to safely dispose of your unused medications. 1.Use a drug disposal kit: the drug disposal pouch allows you to safely discard your old and unuseddrugs. Ask your nurse to give you one when you are discharged.2.Visit a local take-back location: Many local pharmacies and police departments have programs that collect old and unwanted prescriptiondrugs. Call your local pharmacy or go to http://bit.Suite101/3Y1Mj3j to find one close to you.3.Make use of household items: Use cat litter or old coffee grounds to dispose medications if other options arenot available. Mix your drugs with these household products, seal them in an airtight container andthrow it into the garbage. Call [facility]: [phone] to be sure your drugs can be disposed of in this way. Some medicines may require a different approach.4.Never flush your medications down the toilet. IF YOU HAVE BEEN PRESCRIBED AN OPIOIDS FOR PAIN If you have been prescribed an opioid (such as hydrocodone, oxycodone or morphine), it is critical to understand the possible side effects and risks of opioid pain medications. Even when taken as directed, opioids can have several side effects including: Tolerance, meaning you might need to take more of a medication for the same pain relief. Nausea, vomiting and/or constipation. Sleepiness, dizziness, dry mouth, confusion, depression or itching. Physical dependence, meaning you have withdrawal symptoms when a medication is stopped ? this can develop within a few days. KNOW YOUR RESPONSIBILITIES It is important to know exactly how much and how often to take the opioid pain medications you are prescribed. Never take opioids in higher amounts or more often than prescribed. Do not combine opioids with alcohol or other drugs that cause drowsiness, such as benzodiazepines, also known as benzos,including diazepam and alprazolam, muscle relaxants or sleep aids. Never sell or share prescriptionopioids. This is illegal. Store opioids in a secure place and out of reach of others (including children, family, friends and visitors). The last page(s) of this document has been signed and retained as a CHART COPY Signatures Patient Education Materials Chest Pain, Uncertain Cause Chest Wall Pain, Costochondritis Medication Leaflets My discharge plan and instructions have been reviewed and explained to me and I,HOLDEN CHILDERS understand my current condition and have read and understand these discharge instructions. I have received a written copy of the plan/instructions. If I have questions, I am aware that I should contact my doctor. 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 HISTORY: ORDERING SYSTEM PROVIDED HISTORY: Reason for Exam: chest pain FINDINGS: The cardiomediastinal contours are normal. Vascular structures appear within normal limits. There is no consolidation. No pleural fluid or pneumothorax. No aggressive osseous lesions identified. IMPRESSION: No acute radiographic findings. Interpreted by: Bear Moreno MD Preliminary Report By: Bear Moreno MD Electronically signed By Bear Moreno MD Dictated Date: 03/03/2024 11:17:44 AM Prelim Date: 03/03/2024 11:18:22 AM Sign Date: 03/03/2024 11:18:22 AM Ordering Provider: [facility]07-10-2024 NoteSINUS RHYTHM PROBABLE LEFT ATRIAL ENLARGEMENT PROBABLE INFERIOR INFARCT, AGE INDETERMINATE ABNRM T, CONSIDER ISCHEMIA, ANTEROLATERAL LDS Compared to ECG at 10/25/2023 17:53:18 Electronic Signature: STORMTREE SWANN Mari BULLOCK 03/03/2024 17:03:04[facility] 06-18-[facility]24 History of Present illness Narrative* Jonny Philip RT(R) - 02/10/2024 5:00 PM EDTSummary: CT Radiology Service Progress Note PATIENT NAME: Holden Childers DATE OF SERVICE: February 10, 2024 TIME: 4:46 PM PATIENT IDENTITY VERIFICATION COMPLETED USING TWO (2) IDENTIFIERS: Name and Date of confirmedby patient verbally. FALL SCREENING: Has the patient had 2 falls in the last year or 1 fall with injury or currently using an Ambulatory Assistive Device (Walker, Cane, Wheelchair, Crutches, etc.)? No PATIENT GENDER DATA: Female. status: : No status: NO. PATIENT RELEVANT IMPLANT DATA REVIEWED: Not Applicable PATIENT PRESENTS WITH AN IMPLANTABLE OR ATTACHED EMERGENCY OPERATOR: No RADIOLOGY DEPARTMENT: CT; Exam(s) Completed: Lung Screening PERIPHERAL IV DATA: Not applicable SIGNED BY: RT Reanna(R) February 10, 2024 4:46 PM documented in [facility]24 NoteHNO ID: [id number] Author: JONNY PHILIP RT(R) Service: Radiology Author Type: Technologist Type: Progress Notes Filed: 02/10/2024 16:46 Note Text: Summary: CT Radiology Service Progress Note PATIENT NAME: Holden Childers DATE OF SERVICE: February 10, 2024 TIME: 4:46 PM PATIENT IDENTITY VERIFICATION COMPLETED USING TWO (2) IDENTIFIERS: Name and Date of confirmed by patient verbally. FALL SCREENING: Has the patient had 2 falls in the last year or 1 fall with injury or currently using an Ambulatory Assistive Device (Walker, Cane, Wheelchair, Crutches, etc.)? No PATIENT GENDER DATA: Female. status: : No status: NO. PATIENT RELEVANT IMPLANT DATA REVIEWED: Not Applicable PATIENT PRESENTS WITH AN IMPLANTABLE OR ATTACHED EMERGENCY OPERATOR: No RADIOLOGY DEPARTMENT: CT; Exam(s) Completed: Lung Screening PERIPHERAL IV DATA: Not applicable SIGNED BY: RT Reanna(R) February 10, 2024 4:46 [facility] NoteHNO ID: [id number] Author: THU BOSS MD Service: ? Author Type: Physician Type: Procedures Filed: 02/09/2024 13:02 Note Text: CYSTOSCOPY PROCEDURE NOTE: PRE-OP/PRE-PROCEDURE DIAGNOSIS: POST-OP/POST-PROCEDURE DIAGNOSIS: SURGERY/PROCEDURE(S): Holden Childers is a 53 year old female who presents with bladder thickening for cystoscopy. Pt ID verified with patient: Yes Procedure verified with patient: Yes Procedure confirmed with physician and fire support specialist: Yes UNIVERSAL PROTOCOL / SAFETY CHECKLIST Procedure to be Performed: Sign In: A Moment of CARE was completed. Personnel directly involved with the procedure wore the appropriate PPE (Personal Protective Equipment). Patient/Surrogate Stated/Verified: PATIENT VERIFIED(optional for EMERGENT procedures): Patient name, Date of , Relevant allergies, and The intended procedure Time Out Communication: Intended patient and procedure match the source documents. Consent documented and matches the intended procedure. Sign Out: SIGN OUT (optional for EMERGENT procedures): No specimen collected. Thu Boss MD A urinalysis was performed revealing no evidence of infection. The benefits, risks, alternatives of the cystoscopy procedure and personnel were discussed with the patient. The verbal consent was obtained and the patient agrees to proceed. Procedure: The patient was placed on the procedure table in the supine position and prepped and draped in the usual sterile fashion. 2% Lidocaine Jelly was placed per urethra as an anesthetic in the standard fashion. Once adequate local anesthesia was achieved, the tip of the flexible cystoscope was carefully placed into the urethra under direct visual guidance. with no evidence of stricture. The bladder was entered and careful tomlinson endoscopy was carried out. The posterior, superior and lateral littlejohn and dome of the bladder were all well visualized and the scope was retroflexed upon itself. The findings were consistent with no evidence of bladder mucosal pathology. The findings were consistent with smooth, not trabeculated. At the conclusion of the procedure, the flexible cystoscope was removed atraumatically. The patient tolerated the procedure without complications. Patient was given standard post-procedure instructions, and was directed to complete the course of oral antibiotics and increase oral fluid intake as directed. IMPRESSION: Bn agulated PLAN: Abx 5 d Thu Boss MD Electronically Signed: Thu Boss MD February 09, 2024 1:00 PM This note was partially created using voice recognition software and is inherently subject to errors including those of syntax and sound-alike substitutions which may escape proofreading. In such instances, original meaning may be extrapolated by contextual derivation.[facility] Procedure note* Thu Boss MD - 02/09/2024 1:00 PM EDT CYSTOSCOPY PROCEDURE NOTE: PRE-OP/PRE-PROCEDURE DIAGNOSIS: POST-OP/POST-PROCEDURE DIAGNOSIS: SURGERY/PROCEDURE(S): Holden Childers is a 53 year old female who presents with bladder thickening for cystoscopy. Pt ID verified with patient: Yes Procedure verified with patient: Yes Procedure confirmed with physician and fire support specialist: Yes UNIVERSAL PROTOCOL / SAFETY CHECKLIST Procedure to be Performed: Sign In: A Moment of CARE was completed. Personnel directly involved with the procedure wore the appropriate PPE (Personal Protective Equipment). Patient/Surrogate Stated/Verified: PATIENT VERIFIED(optional for EMERGENT procedures): Patient name, Date of , Relevant allergies, and The intended procedure Time Out Communication: Intended patient and procedure match the source documents. Consent documented and matches the intended procedure. Sign Out: SIGN OUT (optional for EMERGENT procedures): No specimen collected. Thu Boss MD A urinalysis was performed revealing no evidence of infection. The benefits, risks, alternatives of the cystoscopy procedure and personnel were discussed with thepatient. The verbal consent was obtained and the patient agrees to proceed. Procedure: The patient was placed on the procedure table in the supine position and prepped and draped in the usual sterile fashion. 2% Lidocaine Jelly was placed per urethra as an anesthetic in the standard fashion. Once adequate local anesthesia was achieved, the tip of the flexible cystoscope was carefully placed into the urethra under direct visual guidance. with no evidence of stricture. Thebladder was entered and careful tomlinson endoscopy was carried out. The posterior, superior and lateral littlejohn and dome of the bladder were all well visualized and the scope was retroflexed upon itself. The findings were consistent with no evidence of bladder mucosal pathology. The findings were consistent with smooth, not trabeculated. At the conclusion of the procedure, the flexible cystoscope was removed atraumatically. The patienttolerated the procedure without complications. Patient was given standard post-procedure instructions, and was directed to complete the course of oral antibiotics and increase oral fluid intake as directed. IMPRESSION: Bn agulated PLAN: Abx 5 d Thu Boss MD Electronically Signed: Thu Boss MD February 09, 2024 1:00 PM This note was partially created using voice recognition software and is inherently subject to errors including those of syntax and sound-alike substitutions which may escape proofreading. In such instances, original meaning may be extrapolated by contextual derivation. [facility]06-17-2024 Procedure note* Thu Boss MD - 02/09/2024 1:00 PM EDT CYSTOSCOPY PROCEDURE NOTE: PRE-OP/PRE-PROCEDURE DIAGNOSIS: POST-OP/POST-PROCEDURE DIAGNOSIS: SURGERY/PROCEDURE(S): Holden Childers is a 53 year old female who presents with bladder thickening for cystoscopy. Pt ID verified with patient: Yes Procedure verified with patient: Yes Procedure confirmed with physician and fire support specialist: Yes UNIVERSAL PROTOCOL / SAFETY CHECKLIST Procedure to be Performed: Sign In: A Moment of CARE was completed. Personnel directly involved with the procedure wore the appropriate PPE (Personal Protective Equipment). Patient/Surrogate Stated/Verified: PATIENT VERIFIED(optional for EMERGENT procedures): Patient name, Date of , Relevant allergies, and The intended procedure Time Out Communication: Intended patient and procedure match the source documents. Consent documented and matches the intended procedure. Sign Out: SIGN OUT (optional for EMERGENT procedures): No specimen collected. Thu Boss MD A urinalysis was performed revealing no evidence of infection. The benefits, risks, alternatives of the cystoscopy procedure and personnel were discussed with thepatient. The verbal consent was obtained and the patient agrees to proceed. Procedure: The patient was placed on the procedure table in the supine position and prepped and draped in the usual sterile fashion. 2% Lidocaine Jelly was placed per urethra as an anesthetic in the standard fashion. Once adequate local anesthesia was achieved, the tip of the flexible cystoscope was carefully placed into the urethra under direct visual guidance. with no evidence of stricture. Thebladder was entered and careful tomlinson endoscopy was carried out. The posterior, superior and lateral littlejohn and dome of the bladder were all well visualized and the scope was retroflexed upon itself. The findings were consistent with no evidence of bladder mucosal pathology. The findings were consistent with smooth, not trabeculated. At the conclusion of the procedure, the flexible cystoscope was removed atraumatically. The patienttolerated the procedure without complications. Patient was given standard post-procedure instructions, and was directed to complete the course of oral antibiotics and increase oral fluid intake as directed. IMPRESSION: Bn agulated PLAN: Abx 5 d Thu Boss MD Electronically Signed: Thu Boss MD February 09, 2024 1:00 PM This note was partially created using voice recognition software and is inherently subject to errors including those of syntax and sound-alike substitutions which may escape proofreading. In such instances, original meaning may be extrapolated by contextual derivation. documented in this encounterK[facility]06-[facility]-2024 NoteHNO ID: [id number] Author: THU BOSS MD Service: ? Author Type: Physician Type: Progress Notes Filed: 02/09/2024 13:02 Note Text: [facility] ESTABLISHED PATIENT OFFICE VISIT Patient presents with: Cystoscopy-1 HISTORY OF PRESENT ILLNESS Holden Childers is a 53 year old female who is here for cysto--02/09/24 cysto -angulated bn, clear, abx 5d Prn f/u No new issues or utis Review of Systems The remainder of the ROS was reviewed and is negative. LAB No results found for: CREAT No results found for: PSA, PSASC GLUCOSE UA (POCT) (mg/dL) Date Value 02/09/2024 Negative BILIRUBIN UA (POCT) (no units) Date Value 02/09/2024 Negative KETONE UA (POCT) (mg/dL) Date Value 02/09/2024 Negative SPECIFIC GRAVITY UA (POCT) (no units) Date Value 02/09/2024 1.020 HEMOGLOBIN/BLOOD UA (POCT) (no units) Date Value 02/09/2024 Negative PH UA (POCT) (no units) Date Value 02/09/2024 6.5 PROTEIN UA (POCT) (mg/dL) Date Value 02/09/2024 Negative UROBILINOGEN UA (POCT) (E.U./dL) Date Value 02/09/2024 0.2 NITRITE UA (POCT) (no units) Date Value 02/09/2024 Negative LEUKOCYTES UA (POCT) (no units) Date Value 02/09/2024 Negative COLOR UA (POCT) (no units) Date Value 02/09/2024 Yellow CLARITY UA (POCT) (no units) Date Value 02/09/2024 Clear ] MEDICATIONS metoprolol succinate ER (TOPROL XL) 50 mg 24 hr tablet atorvastatin (LIPITOR) 40 mg tablet Take 1 tablet by mouth every afternoon. aspirin 81 mg chewable tablet CHEW 1 TABLET BY MOUTH EVERY DAY WITH A MEAL ticagrelor (BRILINTA) 90 mg tablet Take by mouth. pregabalin (LYRICA) 50 mg capsule Take 50 mg by mouth three times a day. sertraline (ZOLOFT) 50 mg tablet Take 50 mg by mouth three times a day. LYSINE ORAL Take by mouth. fluticasone propionate (FLONASE NASAL) Use in the nose. albuterol sulfate 90 mcg/actuation breath activated powder inhaler Inhale as instructed. nicotine (NICODERM CQ) 14 mg/24 hr Apply 1 Patch as directed every 24 hours. magnesium oxide (MAG-OX) 400 mg (241.3 mg magnesium) tablet Take 1 tablet by mouth twice daily. Lactobac no.41/Bifidobact no.7 (PROBIOTIC-10 ORAL) Take by mouth. (Patient not taking: Reported on 01/23/2024) cyclobenzaprine (FLEXERIL) 5 mg tablet Take 1 tablet by mouth daily at bedtime. montelukast (SINGULAIR) 10 mg tablet Take 1 tablet by mouth daily at bedtime. 0 HISTORIES PAST MEDICAL HISTORY Diagnosis Date Abnormal Pap smear 09/2008 LGSIL and Positive HPV Abnormal Pap smear 04/2009 HGSIL Encounter for insertion or removal of intrauterine contraceptive device 12/13/2008 Mirena Endometriosis Fibromyalgia 08/14/2012 Hypertension Palpitations S/P SHREE (total abdominal hysterectomy) 05/15/2010 PAST SURGICAL HISTORY Procedure Laterality Date APPENDECTOMY CONIZATION CERVIX W/WO DANDC RPR ELTRD EXC 06/21/2009 (LEEP) INSERT INTRAUTERINE DEVICE 12/13/2008 Mirena IUD REMOVAL 03/22/2010 LAPS ABD PRTMANDOMENTUM DX W/WO SPEC BR/WA SPX Laparoscopy TONSILLECTOMY PRIMARY/SECONDARY Tonsillectomy TOTAL ABDOMINAL HYSTERECT W/WO RMVL TUBE OVARY 05/15/2010 Dr. Dodd; Dysplasia, Metrorrhagia, Dysmenorrhea TRANSV CAROTID STENT PLACEMT 10/25/2023 [place] VAGINOS[place] 02/01/2010 FAMILY HISTORY Problem Relation Age of Onset Hypertension Mother Coronary Artery Disease Maternal Grandfather Coronary Artery Disease Paternal Grandfather SOCIAL HISTORY Social History Tobacco Use Smoking status: Former Packs/day: 0.75 Years: 27.00 Additional pack years: 0.00 Total pack years: 20.25 Types: Cigarettes Quit date: 10/25/2023 Years since quittin.2 Smokeless tobacco: Never Tobacco comments: Started smoking age 26 Vaping Use Vaping Use: Some days Substances: Nicotine, Flavoring Substance Use Topics Alcohol use: No Drug use: No LMP 04/16/2010 Physical Exam ASSESSMENT/PLAN: 1. Bladder wall thickening [N32.89] - ICD9: 596.89, ICD10: N32.89 (primary diagnosis) Bladder changes prior to cath, 02/09/24 cysto -angulated bn, clear, Prn f/u 2. 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 Recurrent UTI - ICD9: 599.0, ICD10: N39.0 4. Urgency of urination - ICD9: 788.63, ICD10: R39.15 Thu Boss MD This note was partially created using voice recognition software and is inherently subject to errors including those of syntax and sound-alike substitutions which may escape proofreading. In such instances, original meaning may be extrapolated by contextual derivation.[facility]06-17-2024 History of Present illness Narrative* Thu Boss MD - 02/09/2024 12:50 PM EDT Images from the original note were not included. [facility] ESTABLISHED PATIENT OFFICE VISIT Patient presents with: Cystoscopy-1 HISTORY OF PRESENT ILLNESS Holden Childers is a 53 year old female who is here for cysto--02/09/24 cysto -angulated bn, clear, abx 5d Prn f/u No new issues or utis Review of Systems The remainder of the ROS was reviewed and is negative. LAB No results found for: CREAT No results found for: PSA, PSASC GLUCOSE UA (POCT) (mg/dL) Date Value 02/09/2024 Negative BILIRUBIN UA (POCT) (no units) Date Value 02/09/2024 Negative KETONE UA (POCT) (mg/dL) Date Value 02/09/2024 Negative SPECIFIC GRAVITY UA (POCT) (no units) Date Value 02/09/2024 1.020 HEMOGLOBIN/BLOOD UA (POCT) (no units) Date Value 02/09/2024 Negative PH UA (POCT) (no units) Date Value 02/09/2024 6.5 PROTEIN UA (POCT) (mg/dL) Date Value 02/09/2024 Negative UROBILINOGEN UA (POCT) (E.U./dL) Date Value 02/09/2024 0.2 NITRITE UA (POCT) (no units) Date Value 02/09/2024 Negative LEUKOCYTES UA (POCT) (no units) Date Value 02/09/2024 Negative COLOR UA (POCT) (no units) Date Value 02/09/2024 Yellow CLARITY UA (POCT) (no units) Date Value 02/09/2024 Clear ] MEDICATIONS metoprolol succinate ER (TOPROL XL) 50 mg 24 hr tablet atorvastatin (LIPITOR) 40 mg tablet Take 1 tablet by mouth every afternoon. aspirin 81 mg chewable tablet CHEW 1 TABLET BY MOUTH EVERY DAY WITH A MEAL ticagrelor (BRILINTA) 90 mg tablet Take by mouth. pregabalin (LYRICA) 50 mg capsule Take 50 mg by mouth three times a day. sertraline (ZOLOFT) 50 mg tablet Take 50 mg by mouth three times a day. LYSINE ORAL Take by mouth. fluticasone propionate (FLONASE NASAL) Use in the nose. albuterol sulfate 90 mcg/actuation breath activated powder inhaler Inhale as instructed. nicotine (NICODERM CQ) 14 mg/24 hr Apply 1 Patch as directed every 24 hours. magnesium oxide (MAG-OX) 400 mg (241.3 mg magnesium) tablet Take 1 tablet by mouth twice daily. Lactobac no.41/Bifidobact no.7 (PROBIOTIC-10 ORAL) Take by mouth. (Patient not taking: Reported on 01/23/2024) cyclobenzaprine (FLEXERIL) 5 mg tablet Take 1 tablet by mouth daily at bedtime. montelukast (SINGULAIR) 10 mg tablet Take 1 tablet by mouth daily at bedtime. 0 HISTORIES PAST MEDICAL HISTORY Diagnosis Date Abnormal Pap smear 09/2008 LGSIL and Positive HPV Abnormal Pap smear 04/2009 HGSIL Encounter for insertion or removal of intrauterine contraceptive device 12/13/2008 Mirena Endometriosis Fibromyalgia 08/14/2012 Hypertension Palpitations S/P SHREE (total abdominal hysterectomy) 05/15/2010 PAST SURGICAL HISTORY Procedure Laterality Date APPENDECTOMY CONIZATION CERVIX W/WO D&C RPR ELTRD EXC 06/21/2009 (LEEP) INSERT INTRAUTERINE DEVICE 12/13/2008 Mirena IUD REMOVAL 03/22/2010 LAPS ABD PRTM&OMENTUM DX W/WO SPEC BR/WA SPX Laparoscopy TONSILLECTOMY PRIMARY/SECONDARY <AGE 12 Tonsillectomy TOTAL ABDOMINAL HYSTERECT W/WO RMVL TUBE OVARY 05/15/2010 Dr. Dodd; Dysplasia, Metrorrhagia, Dysmenorrhea TRANSV CAROTID STENT PLACEMT 10/25/2023 [place] VAGINOSCOPY 02/01/2010 FAMILY HISTORY Problem Relation Age of Onset Hypertension Mother Coronary Artery Disease Maternal Grandfather Coronary Artery Disease Paternal Grandfather SOCIAL HISTORY Social History Tobacco Use Smoking status: Former Packs/day: 0.75 Years: 27.00 Additional pack years: 0.00 Total pack years: 20.25 Types: Cigarettes Quit date: 10/25/2023 Years since quittin.2 Smokeless tobacco: Never Tobacco comments: Started smoking age 26 Vaping Use Vaping Use: Some days Substances: Nicotine, Flavoring Substance Use Topics Alcohol use: No Drug use: No LMP 04/16/2010 Physical Exam ASSESSMENT/PLAN: 1. Bladder wall thickening [N32.89] - ICD9: 596.89, ICD10: N32.89 (primary diagnosis) Bladder changes prior to cath, 02/09/24 cysto -angulated bn, clear, Prn f/u 2. 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 Recurrent UTI - ICD9: 599.0, ICD10: N39.0 4. Urgency of urination - ICD9: 788.63, ICD10: R39.15 Thu Boss MD This note was partially created using voice recognition software and is inherently subject to errors including those of syntax and sound-alike substitutions which may escape proofreading. In such instances, original meaning may be extrapolated by contextual derivation. documented in this encounterK[facility] Nurse Note* Brintey Beltran - 02/09/2024 11:50 AM EDT Stone Decorator offered:Patient accepts, visit chaperoned by Britney Beltran CMA [facility]06-17-2024 Nurse Note* Britney Beltran - 02/09/2024 11:50 AM EDT Stone Decorator offered:Patient accepts, visit chaperoned by Britney Beltran CMA documented in this encounterK[facility]06-03-2024 NoteHNO ID: [id number] Author: GELY GOTTLIEB PA Service: ? Author Type: Physician Ceramic Sprayer Type: Progress Notes Filed: 01/30/2024 20:29 Note Text: [facility] CC: Holden Childers is a 53 year old female who is self referred for sinus concerns. Assessment: Disorder of eustachian tube, unspecified laterality Post-nasal drip Nasal congestion Plan: - Nasal endoscopy reveals draining clear mucus, erythematous mucosa, and hypertrophied turbinates bilaterally. - Begin daily Neilmed saline rinse. Continue Flonase and add Astelin, 2 sprays in each nostril once daily. - Schedule Hearing test for eustachian tube dysfunction - Follow up with me in 2 months Gely Gottlieb PA-C HPI: Holden Childers is a 53 year old female who comes in for evaluation of multiple concerns. Patient reports sinus concerns for the past several years. Endorses sinus pain and pressure constantly. Points to under her eyes bilaterally. Sometimes in her temples as well. Endorses thick post-nasal drip. Her ears never feels clear--feels like she's in a bubble all the time. Right otalgia. Always tired, bad body aches. Every 2 months has to take a few days off work because she feels so sick. Denies nasal congestion, no trouble breathing out of her nostrils. History of seasonal allergies--dust mites, ragweed, mold. Uses saline rinses twice weekly. Tries to use Flonase daily, ends up using every other day. Takes Singulair at night. PCP just called in [facility], but has not filled it yet. No history of sinus surgery. ALLERGIES Allergen Reactions - Codeine Vomiting Current Outpatient Medications Medication Sig - metoprolol succinate ER (TOPROL XL) 50 mg 24 hr tablet - atorvastatin (LIPITOR) 40 mg tablet Take 1 tablet by mouth every afternoon. - aspirin 81 mg chewable tablet CHEW 1 TABLET BY MOUTH EVERY DAY WITH A MEAL - ticagrelor (BRILINTA) 90 mg tablet Take by mouth. - pregabalin (LYRICA) 50 mg capsule Take 50 mg by mouth three times a day. - sertraline (ZOLOFT) 50 mg tablet Take 50 mg by mouth three times a day. - LYSINE ORAL Take by mouth. - fluticasone propionate (FLONASE NASAL) Use in the nose. - albuterol sulfate 90 mcg/actuation breath activated powder inhaler Inhale as instructed. - nicotine (NICODERM CQ) 14 mg/24 hr Apply 1 Patch as directed every 24 hours. - cyclobenzaprine (FLEXERIL) 5 mg tablet Take 1 tablet by mouth daily at bedtime. - magnesium oxide (MAG-OX) 400 mg (241.3 mg magnesium) tablet Take 1 tablet by mouth twice daily. - montelukast (SINGULAIR) 10 mg tablet Take 1 tablet by mouth daily at bedtime. - Lactobac no.41/Bifidobact no.7 (PROBIOTIC-10 ORAL) Take by mouth. (Patient not taking: Reported on 01/23/2024) No current facility-administered medications for this visit. PAST MEDICAL HISTORY Diagnosis Date - Abnormal Pap smear 09/2008 LGSIL and Positive HPV - Abnormal Pap smear 04/2009 HGSIL - Encounter for insertion or removal of intrauterine contraceptive device 12/13/2008 Mirena - Endometriosis - Fibromyalgia 08/14/2012 - Hypertension - Palpitations - S/P SHREE (total abdominal hysterectomy) 05/15/2010 PAST SURGICAL HISTORY Procedure Laterality Date - APPENDECTOMY - CONIZATION CERVIX W/WO DANDC RPR ELTRD EXC 06/21/2009 (LEEP) - INSERT INTRAUTERINE DEVICE 12/13/2008 Mirena - IUD REMOVAL 03/22/2010 - LAPS ABD PRTMANDOMENTUM DX W/WO SPEC BR/WA SPX Laparoscopy - TONSILLECTOMY PRIMARY/SECONDARY Tonsillectomy - TOTAL ABDOMINAL HYSTERECT W/WO RMVL TUBE OVARY 05/15/2010 Dr. Dodd; Dysplasia, Metrorrhagia, Dysmenorrhea - TRANSV CAROTID STENT PLACEMT 10/25/2023 [place] - VAGINOSCOPY 02/01/2010 Social History: Social History Tobacco Use - Smoking status: Former Packs/day: 0.75 Years: 27.00 Additional pack years: 0.00 Total pack years: 20.25 Types: Cigarettes Quit date: 10/25/2023 Years since quittin.2 - Smokeless tobacco: Never - Tobacco comments: Started smoking age 26 Vaping Use - Vaping Use: Some days - Substances: Nicotine, Flavoring Substance Use Topics - Alcohol use: No - Drug use: No FAMILY HISTORY Problem Relation Age of Onset - Hypertension Mother - Coronary Artery Disease Maternal Grandfather - Coronary Artery Disease Paternal Grandfather PHYSICAL EXAM: On physical examination Holden Childers is a well-developed, well nourished female. Her speech is normal and her voice is clear. Mental status revealed patient to be alert and oriented. Mood is appropriate. Details of the physical examination: CRANIAL NERVE EXAM: II: Pupillary reflexes normal III, IV, : EOM normal V: 1,2,3: normal sensation VII: Normal strength in all divisions. VIII: Hearing grossly normal. IX, X:palatal elevation and sensation XI: Shoulder strength normal XII: Tongue mobility normal HEAD AND FACE: Physical examination of the head, neck, external nose, external ears, mouth and face (more content not included)...[facility] 01-23-2024 Note* Addendum Note - Araseli Markham APRN.CNP - 01/23/2024 11:21 AM EDTAddended by: ARASELI MARKHAM on: 01/23/2024 11:21 AM Modules accepted: Orders [facility]05-31-2024 Miscellaneous Notes* Addendum Note - Araseli Markham APRN.CNP - 01/23/2024 11:21 AM EDTAddended by: ARASELI MARKHAM on: 01/23/2024 11:21 AM Modules accepted: Orders documented in this encounterK[facility]05-31-2024 Instructions* Patient Instructions* Araseli Markham APRN.CNP - 01/23/2024 11:[address] Lung Screen Results The CT scan that you will have done will show if you have any nodules (small spots) in your lungs that are suspicious for cancer. Around 90% of the patients who have this scan done are found to have at least one nodule. Most nodules are benign (not cancer) and of no harm to you at all. A specialistwill make a scientific evaluation about whether or not a nodule is worrisome based on its size and shape. The radiologist who will read your scan will put it into one of four categories: LUNG-RADS Category Description Overall Probability of Malignancy Recommended Follow-Up 1 Negative No nodules and definitely benign (non-cancerous nodules) Essentially 0. 1 Year - Follow-up Low dose CT 2 Benign Appearance or Behavior Nodules with a very low likelihood of becoming cancer due to size or lack of growth Less than 1% 1 Year - Follow-up Low dose CT 3 Probably Benign Probably benign finding, short term follow-up recommended 1 to 2% 6 Months - Follow-up Low dose CT 4 Suspicious Findings for which additional diagnostic testing and/or biopsy is recommended Will be calculated based on nodule characteristics. Dependent on what is seen on the exam. (3 month follow-up CT, PET-CT, or biopsy) 0 Incomplete Findings suggestive of an inflammatory or infectious process AND/OR part of the lung cannot be evaluated Additional lung cancer screening CT imaging needed AND/OR comparison with prior chest CT imaging At times, we may see something outside of the lungs on the scan that could be a health concern. Below are some of the most common findings: S Clinically Significant or Potentially Clinically Significant Findings (non lung cancer) Referral or additional imaging/labs depending on result. Approximately 10% of people receive this result. Coronary Artery Calcifications (Moderate or Severe) - Referral to cardiology for further work-up and recommendations. Thyroid Nodule - TSH level and Thyroid Ultrasound dependent on size, referral to endocrinology. Adrenal Nodule - blood work and referral to endocrinology. Others Lung Cancer Screening hotline: [phone] Lung Cancer Screening [phone] Billing Questions: or [email or web address] Specialist Providers: (Inga East PA-C; Carmela Mendoza CNP; Iwnoa Garsia CNP, Katina Rogers CNP; Michelle Quiros CNP; CHANO Burkett; Araseli Markham CNP; Lydia Lopez CNP; Kiki Weinstein CNP; Stefania Mackay CNP; Dea Lilly PA-C; Conchis Gonzalez PA-C; Padmini Clark CNP; Radha Dunn CNP; Carlton Barragan CNP): [phone] documented in this encounterKettering [facility]05-31-2024 NoteHNO ID: [id number] Author: ARASELI MARKHAM APRN.CNP Service: ? Author Type: Nurse Practitioner Type: Progress Notes Filed: 01/23/2024 11:08 Note Text: LUNG SCREENING VISIT PRIMARY CARE PHYSICIAN: Bautista Manzano MD PULMONARY PROVIDER: Dr. Arita-not ongoing management Results will be communicated via letter or electronic record if applicable. Visit Delivery: In Person Patient Visit Type: New to Screening Current or Ex-smoker? Ex Exam Type: baseline LDCT Number of Pack Years: 20.25 Current smoker (=0) or Number of Years since Quit: <1 year REQUESTER: The referring provider advised the patient to have screening. HISTORY OF PRESENT ILLNESS: Holden Childers is a 53 year old Former smoker who presents for lung screening. Quit smoking 10/2023 due to having [place]. Doing cardiac exercise-has some SOB. Frequent sinus infections. Last infection currently. Respiratory symptoms include: SOB: No Chest tightness: No Coughing: No Hemoptysis: No Wheezing: No Fever/Chills: No Recent Respiratory Infection: No Unintentional weight loss: No Last 6 Encounter Wt Readings: Date: Wt: 01/23/2024 55.3 kg (122 lb) 12/24/2023 55.3 kg (122 lb) 12/18/2023 55.3 kg (122 lb) 10/17/2022 53.5 kg (118 lb) 07/12/2022 52.2 kg (115 lb) 08/14/2012 56.7 kg (125 lb) ECOG PERFORMANCE STATUS: 0- Fully active, able to carry on all pre-disease performance w/o restriction. Modified [employer] [place] Dyspnea Scale (MMRC) I only get breathless with strenous exercise 0 PAST MEDICAL HISTORY Diagnosis Date Abnormal Pap smear 09/2008 LGSIL and Positive HPV Abnormal Pap smear 04/2009 HGSIL Encounter for insertion or removal of intrauterine contraceptive device 12/13/2008 Mirena Endometriosis Fibromyalgia 08/14/2012 Hypertension Palpitations S/P SHREE (total abdominal hysterectomy) 05/15/2010 PAST SURGICAL HISTORY Procedure Laterality Date APPENDECTOMY CONIZATION CERVIX W/WO DANDC RPR ELTRD EXC 06/21/2009 (LEEP) INSERT INTRAUTERINE DEVICE 12/13/2008 Mirena IUD REMOVAL 03/22/2010 LAPS ABD PRTMANDOMENTUM DX W/WO SPEC BR/WA SPX Laparoscopy TONSILLECTOMY PRIMARY/SECONDARY Tonsillectomy TOTAL ABDOMINAL HYSTERECT W/WO RMVL TUBE OVARY 05/15/2010 Dr. Dodd; Dysplasia, Metrorrhagia, Dysmenorrhea TRANSV CAROTID STENT PLACEMT 10/25/2023 [place] VAGINOSCOPY 02/01/2010 FAMILY HISTORY Problem Relation Age of Onset Hypertension Mother Coronary Artery Disease Maternal Grandfather Coronary Artery Disease Paternal Grandfather metoprolol succinate ER (TOPROL XL) 50 mg 24 hr tablet atorvastatin (LIPITOR) 40 mg tablet Take 1 tablet by mouth every afternoon. aspirin 81 mg chewable tablet CHEW 1 TABLET BY MOUTH EVERY DAY WITH A MEAL ticagrelor (BRILINTA) 90 mg tablet Take by mouth. pregabalin (LYRICA) 50 mg capsule Take 50 mg by mouth three times a day. sertraline (ZOLOFT) 50 mg tablet Take 50 mg by mouth three times a day. LYSINE ORAL Take by mouth. fluticasone propionate (FLONASE NASAL) Use in the nose. albuterol sulfate 90 mcg/actuation breath activated powder inhaler Inhale as instructed. nicotine (NICODERM CQ) 14 mg/24 hr Apply 1 Patch as directed every 24 hours. cyclobenzaprine (FLEXERIL) 5 mg tablet Take 1 tablet by mouth daily at bedtime. magnesium oxide (MAG-OX) 400 mg (241.3 mg magnesium) tablet Take 1 tablet by mouth twice daily. montelukast (SINGULAIR) 10 mg tablet Take 1 tablet by mouth daily at bedtime. Lactobac no.41/Bifidobact no.7 (PROBIOTIC-10 ORAL) Take by mouth. (Patient not taking: Reported on 01/23/2024) ALLERGIES Allergen Reactions Codeine Vomiting The medications and allergies were reviewed and reconciled for this patient and deemed current. Lung Cancer Risk Factors: 1.Tobacco Use: Start Age 26, Quit Age: 53, Average packs per day 0.75, Pack Years 20.25 2. Passive Smoke Exposure: Yes, as an Adult 3. Personal hx of malignancy: No, Type of Cancer: 4. Significant exposures (1 year or more of exposure): Other, Black mold 5. Race: White 6. Education: College Graduate 7. BMI:Body mass index is 20.3 kg/m?. Patient-entered Height: 5'5 Patient-entered Weight: 122 pounds 8. COPD: No 9. Pneumonia in the past 5 years: No 10. Is there a history of lung cancer in a first degree relative? No 11. Is there a history of lung cancer in a non-first degree relative? No 12. Is there a history of any other cancer in a first degree relative? No Health Maintenance There is no immunization history on file for this patient. Colonoscopy: Mammogram: 07/12/2023 DATA REVIEW I have directly visualized the testing documented:none Prior Imaging: Last CT/CTA Chest/Lungs No resulted procedures found. Last CT Chest - Impression Only No resulted procedures found. Last XR Chest - Impression Only No resulted procedures found. Pulmonary Function Testing: No textual results found for the specified procedure(s). PHYSICAL EXAM: Pulse 66 (more content not included)...[facility] 01-23-2024 History of Present illness Narrative* Araseli Marhkam APRN.DIRECTOR PRODUCT - 01/23/2024 10:56 AM EDT Images from the original note were not included. LUNG SCREENING VISIT PRIMARY CARE PHYSICIAN: Bautista Manzano MD PULMONARY PROVIDER: Dr. Arita-not ongoing management Results will be communicated via letter or electronic record if applicable. Visit Delivery: In Person Patient Visit Type: New to Screening Current or Ex-smoker? Ex Exam Type: baseline LDCT Number of Pack Years: 20.25 Current smoker (=0) or Number of Years since Quit: <1 year REQUESTER: The referring provider advised the patient to have screening. HISTORY OF PRESENT ILLNESS: Holden Childers is a 53 year old Former smoker who presents for lung screening. Quit smoking ue to having [place]. Doing cardiac exercise-has some SOB. Frequent sinus infections. Last infection currently. Respiratory symptoms include: SOB: No Chest tightness: No Coughing: No Hemoptysis: No Wheezing: No Fever/Chills: No Recent Respiratory Infection: No Unintentional weight loss: No Last 6 Encounter Wt Readings: Date: Wt: 01/23/2024 55.3 kg (122 lb) 12/24/2023 55.3 kg (122 lb) 12/18/2023 55.3 kg (122 lb) 10/17/2022 53.5 kg (118 lb) 07/12/2022 52.2 kg (115 lb) 08/14/2012 56.7 kg (125 lb) ECOG PERFORMANCE STATUS: 0- Fully active, able to carry on all pre-disease performance w/o restriction. Modified Medical Research [place] Dyspnea Scale (MMRC) I only get breathless with strenous exercise 0 PAST MEDICAL HISTORY Diagnosis Date Abnormal Pap smear 09/2008 LGSIL and Positive HPV Abnormal Pap smear 04/2009 HGSIL Encounter for insertion or removal of intrauterine contraceptive device 12/13/2008 Mirena Endometriosis Fibromyalgia 08/14/2012 Hypertension Palpitations S/P SHREE (total abdominal hysterectomy) 05/15/2010 PAST SURGICAL HISTORY Procedure Laterality Date APPENDECTOMY CONIZATION CERVIX W/WO D&C RPR ELTRD EXC 06/21/2009 (LEEP) INSERT INTRAUTERINE DEVICE 12/13/2008 Mirena IUD REMOVAL 03/22/2010 LAPS ABD PRTM&OMENTUM DX W/WO SPEC BR/WA SPX Laparoscopy TONSILLECTOMY PRIMARY/SECONDARY <AGE 12 Tonsillectomy TOTAL ABDOMINAL HYSTERECT W/WO RMVL TUBE OVARY 05/15/2010 Dr. Dodd; Dysplasia, Metrorrhagia, Dysmenorrhea TRANSV CAROTID STENT PLACEMT 10/25/2023 [place] VAGINOSCOPY 02/01/2010 FAMILY HISTORY Problem Relation Age of Onset Hypertension Mother Coronary Artery Disease Maternal Grandfather Coronary Artery Disease Paternal Grandfather metoprolol succinate ER (TOPROL XL) 50 mg 24 hr tablet atorvastatin (LIPITOR) 40 mg tablet Take 1 tablet by mouth every afternoon. aspirin 81 mg chewable tablet CHEW 1 TABLET BY MOUTH EVERY DAY WITH A MEAL ticagrelor (BRILINTA) 90 mg tablet Take by mouth. pregabalin (LYRICA) 50 mg capsule Take 50 mg by mouth three times a day. sertraline (ZOLOFT) 50 mg tablet Take 50 mg by mouth three times a day. LYSINE ORAL Take by mouth. fluticasone propionate (FLONASE NASAL) Use in the nose. albuterol sulfate 90 mcg/actuation breath activated powder inhaler Inhale as instructed. nicotine (NICODERM CQ) 14 mg/24 hr Apply 1 Patch as directed every 24 hours. cyclobenzaprine (FLEXERIL) 5 mg tablet Take 1 tablet by mouth daily at bedtime. magnesium oxide (MAG-OX) 400 mg (241.3 mg magnesium) tablet Take 1 tablet by mouth twice daily. montelukast (SINGULAIR) 10 mg tablet Take 1 tablet by mouth daily at bedtime. Lactobac no.41/Bifidobact no.7 (PROBIOTIC-10 ORAL) Take by mouth. (Patient not taking: Reported on 01/23/2024) ALLERGIES Allergen Reactions Codeine Vomiting The medications and allergies were reviewed and reconciled for this patient and deemed current. Lung Cancer Risk Factors: 1.Tobacco Use: Start Age 26, Quit Age: 53, Average packs per day 0.75, Pack Years 20.25 2. Passive Smoke Exposure: Yes, as an Adult 3. Personal hx of malignancy: No, Type of Cancer: 4. Significant exposures (1 year or more of exposure): Other, Black mold 5. Race: White 6. Education: College Graduate 7. BMI:Body mass index is 20.3 kg/m . Patient-entered Height: 5'5 Patient-entered Weight: 122 pounds 8. COPD: No 9. Pneumonia in the past 5 years: No 10. Is there a history of lung cancer in a first degree relative? No 11. Is there a history of lung cancer in a non-first degree relative? No 12. Is there a history of any other cancer in a first degree relative? No Health Maintenance There is no immunization history on file for this patient. Colonoscopy: Mammogram: 07/12/2023 DATA REVIEW I have directly visualized the testing documented:none Prior Imaging: Last CT/CTA Chest/Lungs No resulted procedures found. Last CT Chest - Impression Only No resulted procedures found. Last XR Chest - Impression Only No resulted procedures found. Pulmonary Function Testing: No textual results found for the specified procedure(s). PHYSICAL EXAM: Pulse 66 Ht 165.1 cm (5' 5) Wt 55.3 kg (122 lb) LMP 04/16/2010 SpO2 97% BMI 20.30 kg/m Deferred ASSESSMENT and RECOMMENDATIONS: 1. Screening for lung cancer: Six year risk for lung cancer: 0.7% [email or web address]://youtu.be/[email or web address] I have determined that the patient is eligible for a low dose CT based on age, absence of signs or symptoms of lung cancer, and total pack years: Yes. The patient and I engaged in shared decision making, including the use of one or more decision aids, to include benefits, harms, follow-up diagnostic testing, over-diagnosis, false positive rate, andtotal radiation exposure. The patient understands and feels comfortable with it: Yes. The patient was counseled on the importance of adherence to annual LDCT lung cancer screening, impact of comorbidities and ability or willingness to undergo diagnosis and treatment. The patient understands and feels comfortable with it:Yes. 2. Nicotine dependence: The patient was counseled on the importance of maintaining cigarette smoking abstinence - The patient is committed to remaining abstinent from tobacco. Araseli Markham APRN.CNP NPI #: January [id number], [id number] 10:57 AM documented [facility] Telephone encounter Note * Telephone Encounter - Rosemarie Sanabria APRN.CNP - 01/08/2024 3:51 PM EDT Thanks, Meagan! Per Lesly, we need to make sure the sleep lab knows that this PSG needs prioritized for scoring, since the pt is scheduled to see Dr. Anderson on 03/11. Thanks again! [facility]05-16-2024 Miscellaneous Notes* Telephone Encounter - Rosemarie Sanabria APRN.CNP - 01/08/2024 3:51 PM EDT Thanks, Meagan! Per Lesly, we need to make sure the sleep lab knows that this PSG needs prioritized for scoring, since the pt is scheduled to see Dr. Anderson on 03/11. Thanks again! * Telephone Encounter - Rosemarie Sanabria APRN.CNP - 01/08/2024 3:35 PM EDT Recent HST 12/29/23 with non-diagnostic results. Called and discussed with patient - her biggest concern is excessive daytime sleepiness. Recommend in-lab PSG for more accurate evaluation. Discussed with Dr. Anderson and he agrees. Pt is scheduled for f/u with Dr. Anderson in February - will try to get pt scheduled for in- lab PSG prior to this visit. Sending message to Meagan for scheduling. Thank you! documented in this [facility] Telephone encounter Note * Telephone Encounter - Rosemarie Sanabria APRN.CNP - 01/08/2024 3:35 PM EDT Recent HST 12/29/23 with non-diagnostic results. Called and discussed with patient - her biggest concern is excessive daytime sleepiness. Recommend in-lab PSG for more accurate evaluation. Discussed with Dr. Anderson and he agrees. Pt is scheduled for f/u with Dr. Anderson in February - will try to get pt scheduled for in- lab PSG prior to this visit. Sending message to Meagan for scheduling. Thank you! [facility]05-08-[facility] Evaluation + Plan note Future Scheduled Tests Laboratory* Complete Blood Count 12/31/23 * Complete Metabolic Panel 12/31/23 [facility] 05-07-2024 NoteHNO ID: [id number] Author: ?, ?, ? Service: ? Author Type: ? Type: Progress Notes Filed: 12/30/2023 17:49 Note Text: Sleep Study Check-In Documentation Date: December 30, 2023 Name: Holden Childers Patient was accompanied by Self. Location: [facility] Procedure was explained to the patient and all questions were answered. Study type: HST Adverse Event: No (If yes create a new abstract) Comments: HST device was returned and collected in working order. Patient was advised to follow-up on the result of the home sleep testing with their referring physician. Abby [facility]05-07-2024 History of Present illness Narrative* Abby Gould Rai - 12/30/2023 5:48 PM EDT Sleep Study Check-In Documentation Date: December 30, 2023 Name: Holden Childers Patient was accompanied by Self. Location: [facility] Procedure was explained to the patient and all questions were answered. Study type: HST Adverse Event: No (If yes create a new abstract) Comments: HST device was returned and collected in working order. Patient was advised to follow-up on the result of the home sleep testing with their referring physician. Abby Gould documented in this encounterK[facility]-03-[facility]24 Telephone encounter Note * Telephone Encounter - Barbra Miranda MA - 12/26/2023 2:03 PM EDT Patient was advised [facility]05-03-2024 Miscellaneous Notes* Telephone Encounter - Barbra Miranda MA - 12/26/2023 2:03 PM EDT Patient was advised * Telephone Encounter - Jennifer Arriaga APRN.CNP - 12/26/2023 1:55 PM EDT The cefuroxime was not sensitive. That's why I sent in a new rx per my message :) ThanksJennifer APRN.DIRECTOR PRODUCT * Telephone Encounter - Barbra Miranda MA - 12/26/2023 1:[address] Boss gave her cefuroxime yesterday. Which one should she take * Telephone Encounter - Lana Hobson RN - 12/26/2023 1:41 PM EDT Received patient's voicemail; Left message for patient to return call to office As no answer. Lana Hobson RN * Telephone Encounter - Lidia Narayanan MA - 12/26/2023 1:07 PM EDT Left message for pt to call office. Lidia Narayanan MA * Telephone Encounter - Jennifer Arriaga APRN.CNP - 12/26/2023 1:04 PM EDT Urine was + but not sensitive to abx she was placed on at her appt. I sent in new rx below The following approved medication requests have been transmitted electronically. Requested Prescriptions Signed Prescriptions Disp Refills nitrofurantoin monohydrate and macrocrystal (MACROBID) 100 mg capsule 14 capsule 0 Sig: Take 1 capsule by mouth two times a day for 7 days. For 7 days Authorizing Provider: JENNIFER ARRIAGA APRN.CNP documented in this encounterK[facility]24 Telephone encounter Note * Telephone Encounter - Jennifer Arriaga APRN.CNP - 12/26/2023 1:55 PM EDT The cefuroxime was not sensitive. That's why I sent in a new rx per my message :) Jennifer Severino APRN.ROLANDO [facility]05-03-2024 Telephone encounter Note* Telephone Encounter - Barbra Miranda MA - 12/26/2023 1:[address] Boss gave her cefuroxime yesterday. Which one should she take [facility]05-03-2024 Telephone encounter Note* Telephone Encounter - Lana Hobson RN - 12/26/2023 1:41 PM EDT Received patient's voicemail; Left message for patient to return call to office As no answer. Lana Hobson, RN [facility]05-03-2024 Telephone encounter Note* Telephone Encounter - Lidia Narayanan MA - 12/26/2023 1:07 PM EDT Left message for pt to call office. Lidia Narayanan MA [facility]05-03-2024 Telephone encounter Note* Telephone Encounter - Jennifer Arriaga APRN.CNP - 12/26/2023 1:04 PM EDT Urine was + but not sensitive to abx she was placed on at her appt. I sent in new rx below The following approved medication requests have been transmitted electronically. Requested Prescriptions Signed Prescriptions Disp Refills nitrofurantoin monohydrate and macrocrystal (MACROBID) 100 mg capsule 14 capsule 0 Sig: Take 1 capsule by mouth two times a day for 7 days. For 7 days Authorizing Provider: JENNIFER ARRIAGA APRN.CNP [facility]05-01-2024 History of Present illness Narrative* Thu Boss MD - 12/24/2023 10:50 AM EDT Images from the original note were not included. [facility] NEW PATIENT ENCOUNTER Consultation requested by Bautista Vilchis for an opinion regarding bladder thickening. My final recommendations will be communicated back to the requesting physician by way of shared Medical record or letter to requesting physician via US mail. HISTORY OF PRESENT ILLNESS: Patient presents with: Consult bladder wall thickening: New patient here for bladder WALL thickening. CT done Holden Childers is a 53 year old female who had a heart attack and eventual cath with vessel dissection and RP hematoma, ct had irregular bladder, Prior last 3-4mo new freq/urge slight more, no incont, never gross hematuria/stones, father had stones Jo over life time every few years, dysuria/freq/odor, Some dysuria yesterday Send cx and given cefuroxime 7d Plan cysto Review of Systems LAB No results found for: PSA, PSASC No results found for: CREAT GLUCOSE UA (POCT) (mg/dL) Date Value 12/24/2023 Negative BILIRUBIN UA (POCT) (no units) Date Value 12/24/2023 Negative KETONE UA (POCT) (mg/dL) Date Value 12/24/2023 Negative SPECIFIC GRAVITY UA (POCT) (no units) Date Value 12/24/2023 1.010 HEMOGLOBIN/BLOOD UA (POCT) (no units) Date Value 12/24/2023 Moderate (A) PH UA (POCT) (no units) Date Value 12/24/2023 6.5 PROTEIN UA (POCT) (mg/dL) Date Value 12/24/2023 Negative UROBILINOGEN UA (POCT) (E.U./dL) Date Value 12/24/2023 0.2 NITRITE UA (POCT) (no units) Date Value 12/24/2023 Negative LEUKOCYTES UA (POCT) (no units) Date Value 12/24/2023 Moderate (A) COLOR UA (POCT) (no units) Date Value 12/24/2023 Yellow CLARITY UA (POCT) (no units) Date Value 12/24/2023 Clear ] MEDICATIONS metoprolol succinate ER (TOPROL XL) 50 mg 24 hr tablet atorvastatin (LIPITOR) 40 mg tablet Take 1 tablet by mouth every afternoon. aspirin 81 mg chewable tablet CHEW 1 TABLET BY MOUTH EVERY DAY WITH A MEAL ticagrelor (BRILINTA) 90 mg tablet Take by mouth. pregabalin (LYRICA) 50 mg capsule Take 50 mg by mouth three times a day. sertraline (ZOLOFT) 50 mg tablet Take 50 mg by mouth three times a day. LYSINE ORAL Take by mouth. Lactobac no.41/Bifidobact no.7 (PROBIOTIC-10 ORAL) Take by mouth. fluticasone propionate (FLONASE NASAL) Use in the nose. albuterol sulfate 90 mcg/actuation breath activated powder inhaler Inhale as instructed. nicotine (NICODERM CQ) 14 mg/24 hr Apply 1 Patch as directed every 24 hours. magnesium oxide (MAG-OX) 400 mg (241.3 mg magnesium) tablet Take 1 tablet by mouth twice daily. cyclobenzaprine (FLEXERIL) 5 mg tablet Take 1 tablet by mouth daily at bedtime. montelukast (SINGULAIR) 10 mg tablet Take 1 tablet by mouth daily at bedtime. HISTORIES PAST MEDICAL HISTORY Diagnosis Date Abnormal Pap smear 09/2008 LGSIL and Positive HPV Abnormal Pap smear 04/2009 HGSIL Encounter for insertion or removal of intrauterine contraceptive device 12/13/2008 Mirena Endometriosis Fibromyalgia 08/14/2012 Hypertension Palpitations S/P SHREE (total abdominal hysterectomy) 05/15/2010 PAST SURGICAL HISTORY Procedure Laterality Date APPENDECTOMY CONIZATION CERVIX W/WO D&C RPR ELTRD EXC 06/21/2009 (LEEP) INSERT INTRAUTERINE DEVICE 12/13/2008 Mirena IUD REMOVAL 03/22/2010 LAPS ABD PRTM&OMENTUM DX W/WO SPEC BR/WA SPX Laparoscopy TONSILLECTOMY PRIMARY/SECONDARY <AGE 12 Tonsillectomy TOTAL ABDOMINAL HYSTERECT W/WO RMVL TUBE OVARY 05/15/2010 Dr. Dodd; Dysplasia, Metrorrhagia, Dysmenorrhea TRANSV CAROTID STENT PLACEMT 10/25/2023 [place] VAGINOSCOPY 02/01/2010 FAMILY HISTORY Problem Relation Age of Onset Hypertension Mother Coronary Artery Disease Maternal Grandfather Coronary Artery Disease Paternal Grandfather SOCIAL HISTORY Social History Tobacco Use Smoking status: Former Packs/day: 0.50 Years: 27.00 Additional pack years: 0.00 Total pack years: 13.50 Types: Cigarettes Quit date: 10/25/2023 Years since quittin.1 Smokeless tobacco: Never Tobacco comments: Started smoking age 26 Vaping Use Vaping Use: Some days Substances: Nicotine, Flavoring Substance Use Topics Alcohol use: No Drug use: No BP 110/73 (BP Site: Left Arm, BP Cuff Size: Regular Adult) Pulse 81 Ht 165.1 cm (5' 5) Wt 55.3 kg (122 lb) LMP 04/16/2010 BMI 20.30 kg/m Physical Exam ASSESSMENT & PLAN ASSESSMENT/PLAN: 1. Bladder wall thickening [N32.89] - ICD9: 596.89, ICD10: N32.89 (primary diagnosis) Bladder changes prior to cath, plan cysto 2. 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 Recurrent UTI - ICD9: 599.0, ICD10: N39.0 Life long plan prn 4. Urgency of urination - ICD9: 788.63, ICD10: R39.15 Thu Boss MD This note was partially created using voice recognition software and is inherently subject to errors including those of syntax and sound-alike substitutions which may escape proofreading. In such instances, original meaning may be extrapolated by contextual derivation. documented in this encounterK[facility]24 NoteHNO ID: [id number] Author: THU BOSS MD Service: ? Author Type: Physician Type: Progress Notes Filed: 12/24/2023 11:01 Note Text: [facility] NEW PATIENT ENCOUNTER Consultation requested by Bautista Vilchis for an opinion regarding bladder thickening. My final recommendations will be communicated back to the requesting physician by way of shared Medical record or letter to requesting physician via US mail. HISTORY OF PRESENT ILLNESS: Patient presents with: Consult bladder wall thickening: New patient here for bladder WALL thickening. CT done Holden Childers is a 53 year old female who had a heart attack and eventual cath with vessel dissection and RP hematoma, ct had irregular bladder, Prior last 3-4mo new freq/urge slight more, no incont, never gross hematuria/stones, father had stones Jo over life time every few years, dysuria/freq/odor, Some dysuria yesterday Send cx and given cefuroxime 7d Plan cysto Review of Systems LAB No results found for: PSA, PSASC No results found for: CREAT GLUCOSE UA (POCT) (mg/dL) Date Value 12/24/2023 Negative BILIRUBIN UA (POCT) (no units) Date Value 12/24/2023 Negative KETONE UA (POCT) (mg/dL) Date Value 12/24/2023 Negative SPECIFIC GRAVITY UA (POCT) (no units) Date Value 12/24/2023 1.010 HEMOGLOBIN/BLOOD UA (POCT) (no units) Date Value 12/24/2023 Moderate (A) PH UA (POCT) (no units) Date Value 12/24/2023 6.5 PROTEIN UA (POCT) (mg/dL) Date Value 12/24/2023 Negative UROBILINOGEN UA (POCT) (E.U./dL) Date Value 12/24/2023 0.2 NITRITE UA (POCT) (no units) Date Value 12/24/2023 Negative LEUKOCYTES UA (POCT) (no units) Date Value 12/24/2023 Moderate (A) COLOR UA (POCT) (no units) Date Value 12/24/2023 Yellow CLARITY UA (POCT) (no units) Date Value 12/24/2023 Clear ] MEDICATIONS metoprolol succinate ER (TOPROL XL) 50 mg 24 hr tablet atorvastatin (LIPITOR) 40 mg tablet Take 1 tablet by mouth every afternoon. aspirin 81 mg chewable tablet CHEW 1 TABLET BY MOUTH EVERY DAY WITH A MEAL ticagrelor (BRILINTA) 90 mg tablet Take by mouth. pregabalin (LYRICA) 50 mg capsule Take 50 mg by mouth three times a day. sertraline (ZOLOFT) 50 mg tablet Take 50 mg by mouth three times a day. LYSINE ORAL Take by mouth. Lactobac no.41/Bifidobact no.7 (PROBIOTIC-10 ORAL) Take by mouth. fluticasone propionate (FLONASE NASAL) Use in the nose. albuterol sulfate 90 mcg/actuation breath activated powder inhaler Inhale as instructed. nicotine (NICODERM CQ) 14 mg/24 hr Apply 1 Patch as directed every 24 hours. magnesium oxide (MAG-OX) 400 mg (241.3 mg magnesium) tablet Take 1 tablet by mouth twice daily. cyclobenzaprine (FLEXERIL) 5 mg tablet Take 1 tablet by mouth daily at bedtime. montelukast (SINGULAIR) 10 mg tablet Take 1 tablet by mouth daily at bedtime. HISTORIES PAST MEDICAL HISTORY Diagnosis Date Abnormal Pap smear 09/2008 LGSIL and Positive HPV Abnormal Pap smear 04/2009 HGSIL Encounter for insertion or removal of intrauterine contraceptive device 12/13/2008 Mirena Endometriosis Fibromyalgia 08/14/2012 Hypertension Palpitations S/P SHREE (total abdominal hysterectomy) 05/15/2010 PAST SURGICAL HISTORY Procedure Laterality Date APPENDECTOMY CONIZATION CERVIX W/WO DANDC RPR ELTRD EXC 06/21/2009 (LEEP) INSERT INTRAUTERINE DEVICE 12/13/2008 Mirena IUD REMOVAL 03/22/2010 LAPS ABD PRTMANDOMENTUM DX W/WO SPEC BR/WA SPX Laparoscopy TONSILLECTOMY PRIMARY/SECONDARY Tonsillectomy TOTAL ABDOMINAL HYSTERECT W/WO RMVL TUBE OVARY 05/15/2010 Dr. Dodd; Dysplasia, Metrorrhagia, Dysmenorrhea TRANSV CAROTID STENT PLACEMT 10/25/2023 [place] VAGINOSCOPY 02/01/2010 FAMILY HISTORY Problem Relation Age of Onset Hypertension Mother Coronary Artery Disease Maternal Grandfather Coronary Artery Disease Paternal Grandfather SOCIAL HISTORY Social History Tobacco Use Smoking status: Former Packs/day: 0.50 Years: 27.00 Additional pack years: 0.00 Total pack years: 13.50 Types: Cigarettes Quit date: 10/25/2023 Years since quittin.1 Smokeless tobacco: Never Tobacco comments: Started smoking age 26 Vaping Use Vaping Use: Some days Substances: Nicotine, Flavoring Substance Use Topics Alcohol use: No Drug use: No BP 110/73 (BP Site: Left Arm, BP Cuff Size: Regular Adult) Pulse 81 Ht 165.1 cm (5' 5) Wt 55.3 kg (122 lb) LMP 04/16/2010 BMI 20.30 kg/m? Physical Exam ASSESSMENT AND PLAN ASSESSMENT/PLAN: 1. Bladder wall thickening [N32.89] - ICD9: 596.89, ICD10: N32.89 (primary diagnosis) Bladder changes prior to cath, plan cysto 2. 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 Recurrent UTI - ICD9: 599.0, ICD10: N39.0 Life long plan prn 4. Urgency of urination - ICD9: 788.63, ICD10: R39.15 Thu Boss MD This note was partially c (more content not included)...[facility] 12-18-2023 NoteHNO ID: [id number] Author: YUSUF ARITA MD Service: ? Author Type: Physician Type: Progress Notes Filed: 12/18/2023 08:53 Note Text: [facility]PART[facility] PULMONARY [facility]ICINE Date: December 18, 2023 Patient Name: Holden Childers PRIMARY CARE PHYSICIAN: Bautista Manzano MD REASON FOR CONSULT: Patient presents with: Sleep Apnea: States never feels rested, hard time staying asleep HPI: Holden is 53 year old female Used to smoked, until recently in 10/2023 quit after a heart attack She had PCI of the RCA at [place]. Since then she stopped smoking, she used to smoke a pack a day, for 30 years. She used to have an albuterol inhaler, as needed. But after her cardiac stent she has not needed it. She is not known to have any lung disease, no SOB, no hemoptysis, no cough. No asthma no COPD. She was referred for sleep apnea testing. Described as inability to maintain a full refreshing sleep throughout the night, but on different days she is able to sleep for much longer duration. She has anxiety, fibromyalgia. She reports daytime fatigue and excessive tiredness. No snoring, no report of gasping for air when asleep. Never had a sleep study +HTN. + age >50, +daytime fatigue. IMMUNIZATIONS: There is no immunization history on file for this patient. REVIEW OF SYSTEMS: 5 systems reviewed negative except as above PAST MEDICAL HISTORY Diagnosis Date Abnormal Pap smear 09/2008 LGSIL and Positive HPV Abnormal Pap smear 04/2009 HGSIL Encounter for insertion or removal of intrauterine contraceptive device 12/13/2008 Mirena Endometriosis Fibromyalgia 08/14/2012 Hypertension Palpitations S/P SHREE (total abdominal hysterectomy) 05/15/2010 PAST SURGICAL HISTORY Procedure Laterality Date APPENDECTOMY CONIZATION CERVIX W/WO DANDC RPR ELTRD EXC 06/21/2009 (LEEP) INSERT INTRAUTERINE DEVICE 12/13/2008 Mirena IUD REMOVAL 03/22/2010 LAPS ABD PRTMANDOMENTUM DX W/WO SPEC BR/WA SPX Laparoscopy TONSILLECTOMY PRIMARY/SECONDARY Tonsillectomy TOTAL ABDOMINAL HYSTERECT W/WO RMVL TUBE OVARY 05/15/2010 Dr. Dodd; Dysplasia, Metrorrhagia, Dysmenorrhea TRANSV CAROTID STENT PLACEMT 10/25/2023 [place] VAGINOSCOPY 02/01/2010 Social History Tobacco Use Smoking status: Former Packs/day: 0.50 Years: 27.00 Additional pack years: 0.00 Total pack years: 13.50 Types: Cigarettes Quit date: 10/25/2023 Years since quittin.1 Smokeless tobacco: Never Tobacco comments: Started smoking age 26 Vaping Use Vaping Use: Some days Substances: Nicotine, Flavoring Substance Use Topics Alcohol use: No Drug use: No FAMILY HISTORY Problem Relation Age of Onset Hypertension Mother Coronary Artery Disease Maternal Grandfather Coronary Artery Disease Paternal Grandfather PHYSICAL EXAMINATION: VITALS:BP 100/70 Pulse 75 Ht 5' 5 (1.65m) Wt 122 lb (55.3kg) SpO2 98% LMP 04/16/2010 BMI 20.30 kg/(m2). Gen: Alert AND Oriented x 3, No acute distress HEENT: Mallampati 1, No Oral thrush, moist mucous membranes Neck: Supple, no rigidity, Trachea is midline, no Lymphadenopathy Lungs: Clear to Auscultation bilaterally , No wheezing, rhonchi or rales Heart: Regular Rate and Rhythm, Normal S1 and S2, no murmurs Abd: Soft, Nontender and not distended Ext: No edema Neuro: CN II - XII grossly intact, no sensory/motor deficits noted Laboratory and Imaging: Last Spirometry No resulted procedures found. Arterial blood gas: No results found for: PH, PCO2, PO2, HCO3, BE, LACT CT Chest other findings: Last CT Chest - Impression Only No resulted procedures found. Last XR Chest - Impression Only No resulted procedures found. ASSESSMENT and PLAN: ASSESSMENT/PLAN: 1. Tobacco use disorder - ICD9: 305.1, ICD10: F17.200 - Cessation encouraged. - Physiologic and physical aspects of tobacco addiction as well as strategies for quitting were discussed. - Counseling was given focusing on the harmful effects of this addiction especially given the patient's medical condition(s) which will be worsened because of the chemicals in tobacco. Concern about neuropsychiatric side of effects of chantix Willing to try nicotine patch, send to pharmacy Discussed PFT if she get SOB/Wheezing/Cough to investigate COPD, currently she feels ok, deferred - HOME SLEEP APNEA TEST (HSAT) - CONSULT LUNG [facility]CER SCREENING CLINIC 2. Sleep disorder 3 risk factors on STOPBANG Age, HTN, and Tiredness/fatigue Never had a sleep study I explained to the patient that I am not a sleep specialist I asked the staff to schedule her follow up with one of our sleep physician To start the process of evaluation, given 3 risk factors on STOPBANG, will order home sleep study. Otherwise I will recommend to PCP evaluation for her anxiety and screen for depression, optimize healthy sleep hygiene and habits, avoid stimulants (coffee, TV, Iphone use a (more content not included)...[facility]04-25-2024 History of Present illness Narrative* Yusuf Arita MD - 12/18/2023 8:32 AM EDT Images from the original note were not included. [facility] Date: December 18, 2023 Patient Name: Holden Childers PRIMARY CARE PHYSICIAN: Bautista Manzano MD REASON FOR CONSULT: Patient presents with: Sleep Apnea: States never feels rested, hard time staying asleep HPI: Holden is 53 year old female Used to smoked, until recently in 10/2023 quit after a heart attack She had PCI of the RCA at [facility]. Since then she stopped smoking, she used to smoke a pack a day, for 30 years. She used to have an albuterol inhaler, as needed. But after her cardiac stent she has not needed it. She is not known to have any lung disease, no SOB, no hemoptysis, no cough. No asthma no COPD. She was referred for sleep apnea testing. Described as inability to maintain a full refreshing sleep throughout the night, but on different days she is able to sleep for much longer duration. She has anxiety, fibromyalgia. She reports daytime fatigue and excessive tiredness. No snoring, no report of gasping for air when asleep. Never had a sleep study +HTN. + age >50, +daytime fatigue. IMMUNIZATIONS: There is no immunization history on file for this patient. REVIEW OF SYSTEMS: 5 systems reviewed negative except as above PAST MEDICAL HISTORY Diagnosis Date Abnormal Pap smear 09/2008 LGSIL and Positive HPV Abnormal Pap smear 04/2009 HGSIL Encounter for insertion or removal of intrauterine contraceptive device 12/13/2008 Mirena Endometriosis Fibromyalgia 08/14/2012 Hypertension Palpitations S/P SHREE (total abdominal hysterectomy) 05/15/2010 PAST SURGICAL HISTORY Procedure Laterality Date APPENDECTOMY CONIZATION CERVIX W/WO D&C RPR ELTRD EXC 06/21/2009 (LEEP) INSERT INTRAUTERINE DEVICE 12/13/2008 Mirena IUD REMOVAL 03/22/2010 LAPS ABD PRTM&OMENTUM DX W/WO SPEC BR/WA SPX Laparoscopy TONSILLECTOMY PRIMARY/SECONDARY <AGE 12 Tonsillectomy TOTAL ABDOMINAL HYSTERECT W/WO RMVL TUBE OVARY 05/15/2010 Dr. Dodd; Dysplasia, Metrorrhagia, Dysmenorrhea TRANSV CAROTID STENT PLACEMT 10/25/2023 [place]AGINOSCOPY 02/01/2010 Social History Tobacco Use Smoking status: Former Packs/day: 0.50 Years: 27.00 Additional pack years: 0.00 Total pack years: 13.50 Types: Cigarettes Quit date: 10/25/2023 Years since quittin.1 Smokeless tobacco: Never Tobacco comments: Started smoking age 26 Vaping Use Vaping Use: Some days Substances: Nicotine, Flavoring Substance Use Topics Alcohol use: No Drug use: No FAMILY HISTORY Problem Relation Age of Onset Hypertension Mother Coronary Artery Disease Maternal Grandfather Coronary Artery Disease Paternal Grandfather PHYSICAL EXAMINATION: VITALS:BP 100/70 Pulse 75 Ht 5' 5 (1.65m) Wt 122 lb (55.3kg) SpO2 98% LMP 04/16/2010 BMI 20.30 kg/(m^2). Gen: Alert & Oriented x 3, No acute distress HEENT: Mallampati 1, No Oral thrush, moist mucous membranes Neck: Supple, no rigidity, Trachea is midline, no Lymphadenopathy Lungs: Clear to Auscultation bilaterally , No wheezing, rhonchi or rales Heart: Regular Rate and Rhythm, Normal S1 and S2, no murmurs Abd: Soft, Nontender and not distended Ext: No edema Neuro: CN II - XII grossly intact, no sensory/motor deficits noted Laboratory and Imaging: Last Spirometry No resulted procedures found. Arterial blood gas: No results found for: PH, PCO2, PO2, HCO3, BE, LACT CT Chest other findings: Last CT Chest - Impression Only No resulted procedures found. Last XR Chest - Impression Only No resulted procedures found. ASSESSMENT and PLAN: ASSESSMENT/PLAN: 1. Tobacco use disorder - ICD9: 305.1, ICD10: F17.200 - Cessation encouraged. - Physiologic and physical aspects of tobacco addiction as well as strategies for quitting were discussed. - Counseling was given focusing on the harmful effects of this addiction especially given the patient's medical condition(s) which will be worsened because of the chemicals in tobacco. Concern about neuropsychiatric side of effects of chantix Willing to try nicotine patch, send to pharmacy Discussed PFT if she get SOB/Wheezing/Cough to investigate COPD, currently she feels ok, deferred - HOME SLEEP APNEA TEST (HSAT) - CONSULT LUNG [facility]CER [facility]CREENING CLINIC 2. Sleep disorder 3 risk factors on STOPBANG Age, HTN, and Tiredness/fatigue Never had a sleep study I explained to the patient that I am not a sleep specialist I asked the staff to schedule her follow up with one of our sleep physician To start the process of evaluation, given 3 risk factors on STOPBANG, will order home sleep study. Otherwise I will recommend to PCP evaluation for her anxiety and screen for depression, optimize healthy sleep hygiene and habits, avoid stimulants (coffee, TV, Iphone use at night in bedroom ) and sleep diary for 2 weeks RTC in 2months after sleep study with one of our sleep specialists. Yusuf Arita MD, [facility] Pulmonary & Critical [facility] Miscellaneous Notes* Telephone Encounter - Frances Crocker - 12/10/2023 3:47 PM EDT Returned patient's VM to schedule for referral Left message [facility] Hospital Discharge instructions Patient Education 10/27/2023 15:08:21 3- Heart Cath/PCI groin (05/2018)(CUSTOM) HEART CATHETERIZATION/PCI (groin) Discharge Instructions DIET INSTRUCTIONS Drink plenty of fluids for the next 48 hours to help your kidneys flush the heart cath dye out of your system ACTIVITIES May go up and down stairs CAREFULLY Do not drive car FOR 24 HOURS No heavy lifting GREATER THAN 10 POUNDS or pushing or straining FOR 2 DAYS Someone must stay with you at home after the procedure until the morning. BATHING/SHOWERING May tub bathe in 1 week May shower tomorrow WOUND CARE You will go home with a Band-Aid over your heart cath site. Keep a Band-Aid on for the next 24 hours and then leave open to air. Some degree of bruising and tenderness is normal around the heart cath site. It will take a while for any bruising to completely resolve. Keep your site clean and dry. You need to report the following to your leasing machine tender: Any draining or oozing from the site Any swelling at the site Any increased pain or tenderness at the site Any numbness in your leg where the procedure was done Any signs of infection IMPORTANT! CALL 911 FOR ANY BLEEDING OR SWELLING AT THE PROCEDURE SITE If there is any large amount of bleeding, you or someone else need to apply direct pressure to the site (just like the nurse did in the heart lab after your procedure). It is very important that you hold constant pressure. Do not release the pressure to check if the bleeding has stopped. You then need to be transported to the nearest emergency room. WATCH FOR SIGNS OF INFECTION (Usually appears 36-48 hours after surgery) A temperature above 100.5 Redness or swelling Increased pain Foul odor or drainage If you have any questions, please call your doctor at the number listed on your follow up instructions. Follow all instructions given to you by your physician Document Released: 08/11/2006 Document Revised: 07/28/2013 Document Reviewed: 08/12/2014 ExitCare Patient Information 2015 [email or web address]. This information is not intended to replace advicegiven to you by your health care provider. Make sure you discuss any questions you have with your health care provider. Follow Up Care 10/25/2023 14:03:22 With:MIO TERRAZAS MD Address: [address] [facility] [place] [address]- [phone] When:Within 2 Week(s) With:Prescription Assistance Address: [phone] When: only if needed Comments:A voucher has been arranged for you and is available for non-narcotic medications ordered by your doctor. To access, bring your prescriptions to the [facility] located in the [place] of [facility] the main floor of the hospital .Pharmacy hours are:Friday - Friday: 6 AM to 5 PMSaturday: 8 AM to 2 PMSunday: CLOSED With:*[facility] will contact you for an appointment in 1-2 weeks If you have any questions please call:[phone]. Address: When: Unknown [facility] 03-04-2024 Note Discharge Instructions Thank you for allowing [facility] to assist you with your healthcare needs. The following is importantdischarge information regarding your hospital visit. Your Care Team BAUTISTA MANZANO MD What to do next Scheduled Follow-Up Appointments Appointment Type When Where Contact InformationCV OV 11/24/2023 10:15 AM EDT [facility] Follow Up Appointments Follow Up with MIO TERRAZAS MD When In 2 weeks Where: [address] [place] [address]- [phone] Follow Up with Prescription Assistance When Only if needed Why: A voucher has been arranged for you and is available for non-narcotic medications ordered by your doctor. To access, bring your prescriptions to the [facility] located in the [place] [facility] the main floor of the hospital . Pharmacy hours are: Friday - Friday: 6 AM to 5 PM Friday: 8 AM to 2 PM Friday: CLOSED Where: [phone] Follow Up with *[facility] will contact you for an appointment in 1-2 weeks If you have any questions please call:[phone]. When Where: The Following Activity and Diet Have Been Ordered for You Discharge Activity - Ordered -- Lifting Restricted less than 10 pounds, 10/27/23 15:06:00 EST Discharge Return to Work, School, or Sports - Ordered -- within 5-7 days, May return to: work, 10/27/23 15:07:00 EST Discharge Diet - Ordered -- Type of Diet: Cardiac, 10/27/23 15:06:00 EST The Following Equipment Has Been Ordered for You No qualifying data available. The Following Treatments Have Been Ordered for You Discharge Labs No qualifying data available. Discharge Radiology No qualifying data available. Other Therapies No qualifying data available. Post Acute Orders No qualifying data available. Someone Will Contact You Regarding These Home Health Referrals No home referrals have been ordered for you. No one will call you. Allergies codeine (nause) Medications Please ask your primary doctor or pharmacist before taking any other medication not listed, including over the counter drugs, herbal medications, vitamins and or supplements as they may interact withur home medications. What How Much When Instructions Last Dose New aspirin (Karsten Childrens Aspirin 81 mg oral tablet, (chewable)) 1 tab(s) by mouth Once a day with a meal Duration: 90 Days Refills: 4 Pickup at [facility] New atorvastatin (Lipitor 40 mg oral tablet) 1 tab(s) by mouth Once a day Duration: 90 Days Refills: 4 Pickup at [facility] New metoprolol (metoprolol succinate 25 mg oral TABLET extended release) 0.5 tab(s) by mouth Once a day Duration: 30 Days Refills: 2 Pickup at [facility] New ticagrelor (ticagrelor 90 mg oral tablet) 1 tab(s) by mouth Every 12 hours Duration: 90 Days Refills: 4 Pickup at [facility] Unchanged cyclobenzaprine (cyclobenzaprine 10 mg oral tablet) 1 tab(s) by mouth Once a day Unchanged magnesium oxide (magnesium oxide 400 mg oral capsule) 1 cap by mouth Two (2) times a day Unchanged montelukast (montelukast 10 mg oral tablet) 1 tab(s) by mouth Once a day Unchanged pregabalin (Lyrica 150 mg oral capsule) 1 cap by mouth Once a day Unchanged sertraline (sertraline 100 mg oral tablet) 1 tab(s) by mouth Two (2) times a day Pharmacy Information [facility]: [address] [place] [address] [phone] What How Much When Comments Stop Taking meloxicam (meloxicam 15 mg oral tablet) 1 tab(s) by mouth Once a day Stop Taking propranolol (propranolol 60 mg oral tablet) 1 tab(s) by mouth Two (2) times a day Please take this list to your next doctor s visit. Bring all medications you take, including over the counter medications, herbals and other supplements with you to your doctor s visit. Patients and families are reminded to discard old lists and to update any records with all medication providers or retail pharmacies. Medication Leaflets metoprolol (oral/injection) (me TOE pro lol) Kapspargo Sprinkle, Lopressor, Metoprolol Succinate ER, Metoprolol Tartrate, Toprol-XL What is the most important information I should know about metoprolol? You should not use this medicine if you have a serious heart problem (heart block, sick sinus syndrome, slow heart rate), severe circulation problems, severe heart failure, or a history of slow heartbeats that caused fainting. What is metoprolol? Metoprolol is a beta-babatunde that affects the heart and circulation (blood flow through arteries and veins). Metoprolol is used to treat angina (chest pain) and hypertension (high blood pressure). It is also used to lower your risk of or needing to be hospitalized for heart failure. Metoprolol injection is used during the early phase of a heart attack to lower the risk of . Metoprolol may also be used for other purposes not listed in this medication guide. What should I discuss with my healthcare provider before taking metoprolol? You should not use this medicine if you are allergic to metoprolol, or other beta-blockers (atenolol, carvedilol, labetalol, nadolol, nebivolol, propranolol, sotalol, and others), or if you have: a serious heart problem such as heart block, sick sinus syndrome, or slow heart rate; severe circulation problems; severe heart failure (that required you to be in the hospital); or a history of slow heart beats that have caused you to faint. Tell your doctor if you have ever had: asthma, chronic obstructive pulmonary disease (COPD), sleep apnea, or other breathing disorder; diabetes (taking metoprolol may make it harder for you to tell when you have low blood sugar); liver disease; congestive heart failure; problems with circulation (such as Raynaud's syndrome); a thyroid disorder; or pheochromocytoma (tumor of the adrenal gland). Do not give this medicine to a child without medical advice. Tell your doctor if you are or plan to become . It is not known whether metoprololwill harm an unborn baby. However, having high blood pressure during may cause complications such as diabetes or eclampsia (dangerously high blood pressure that can lead to medical problemsin both mother and baby). The benefit of treating hypertension may outweigh any risks to the baby. Ask a doctor before using this medicine if you are breast-feeding. Metoprolol can pass into breast milk and may cause dry skin, dry mouth, diarrhea, constipation, or slow heartbeats in your baby. How should I take metoprolol? Follow all directions on your prescription label and read all medication guides or instruction sheets. Your doctor may occasionally change your dose. Use the medicine exactly as directed. Metoprolol should be taken with a meal or just after a meal. Take the medicine at the same time each day. Swallow the capsule whole and do not crush, chew, break, or open it. A Toprol XL tablet can be divided in half if your doctor has told you to do so. Swallow the half-tablet whole, without chewing or crushing. Measure liquid medicine carefully. Use the dosing syringe provided, or use a medicine dose-measuring device (not a kitchen spoon). You will need frequent medical tests, and your blood pressure will need to be checked often. If you need surgery, tell the surgeon ahead of time that you are using metoprolol. You should not stop using metoprolol suddenly. Stopping suddenly may make your condition worse. If you have high blood pressure, keep using this medicine even if you feel well. High blood pressure often has no symptoms. You may need to use metoprolol for the rest of your life. Store at room temperature away from moisture and heat. Metoprolol injection is given as an infusion into a vein. A healthcare provider will give you this injection in a medical setting where your heart and blood pressure can be monitored. Metoprolol injections are given for only a short time before switching you to the oral form of this medicine. What happens if I miss a dose? Skip the missed dose and use your next dose at the regular time. Do not use two doses at one time. What happens if I overdose? Seek emergency medical attention or call the Poison Help line at . What should I avoid while taking metoprolol? Avoid driving or hazardous activity until you know how this medicine will affect you. Your reactions could be impaired. Drinking alcohol can increase certain side effects of metoprolol. What are the possible side effects of metoprolol? Get emergency medical help if you have signs of an allergic reaction: hives; difficulty breathing; swelling of your face, lips, tongue, or throat. Call your doctor at once if you have: very slow heartbeats; a light-headed feeling, like you might pass out; shortness of breath (even with mild exertion), swelling, rapid weight gain; or cold feeling in your hands and feet. Common side effects may include: dizziness, tired feeling; depression, confusion, memory problems; nightmares, trouble sleeping; diarrhea; or mild itching or rash. This is not a complete list of side effects and others may occur. Call your doctor for medical advice about side effects. You may report side effects to FDA at 4-540-WDS-9619. What other drugs will affect metoprolol? Tell your doctor about all your current medicines. Many drugs can affect metoprolol, especially: any other heart or blood pressure medications; epinephrine (Epi-Pen); an antidepressant; an ergot medicine--dihydroergotamine, ergonovine, ergotamine, methylergonovine; or an MAO inhibitor--isocarboxazid, linezolid, phenelzine, rasagiline, selegiline, tranylcypromine. This list is not complete and many other drugs may affect metoprolol. This includes prescription and phyk-ldu-btozkxu medicines, vitamins, and herbal products. Not all possible drug interactions are listed here. Where can I get more information? Your pharmacist can provide more information about metoprolol. Remember, keep this and all other medicines out of the reach of children, never share your medicines with others, and use this medication only for the indication prescribed. Every effort has been made to ensure that the information provided by [employer]. ('[employer]') is accurate, up-to-date, and complete, but no guarantee is made to that effect. Drug information contained herein may be time sensitive. [employer] information has been compiled for use by healthcare practitioners and consumers in the [place] and therefore [employer] does not warrant that uses outside of the [place] are appropriate, unless specifically indicated otherwise. [employer] drug information does not endorse drugs, diagnose patients or recommend therapy. [employer] drug information isan informational resource designed to assist licensed healthcare practitioners in caring for their p atients and/or to serve consumers viewing this service as a supplement to, and not a substitute for, the expertise, skill, knowledge and judgment of healthcare practitioners. The absence of a warningfor a given drug or drug combination in no way should be construed to indicate that the drug or drug combination is safe, effective or appropriate for any given patient. [employer] does not assume any responsibility for any aspect of healthcare administered with the aid of information [facility] provides. The information contained herein is not intended to cover all possible uses, directions, precautions, warnings, drug interactions, allergic reactions, or adverse effects. If you have questions about the drugs you are taking, check with your doctor, nurse or pharmacist. Copyright 1364-7422 [employer]. Version: 19.01. Revision Date: 04/02/2023. ticagrelor (bonnie KA grel or) Brilinta (ticagrelor) What is the most important information I should know about ticagrelor? You should not use ticagrelor if you have any active bleeding or a history of bleeding in the brain. Do not use this medicine just before heart bypass surgery. Ticagrelor may cause you to bleed more easily, which can be severe or life- threatening. Call your doctor or seek emergency medical attention if you have bleeding that will not stop, black or bloody stools, red or pink urine, or if you cough up blood or vomit that looks like coffee grounds. Tell your doctor about all your current medicines and any you start or stop using. Many drugs can interact with ticagrelor. Do not stop taking ticagrelor without first talking to your doctor, even if you have signs of bleeding. Stopping ticagrelor may increase your risk of a heart attack or stroke. What is ticagrelor? Ticagrelor is used to lower your risk of heart attack, stroke, or due to a blocked artery or a prior heart attack. Ticagrelor is also used to lower your risk of blood clots if you have coronary artery disease (decreased blood flow to the heart) and have been treated with stents to open clogged arteries. Ticagrelor is also used to lower your risk of a first heart attack or stroke if you have decreased blood flow to the heart. Ticagrelor is also used to lower the risk of stroke and in adults with a blockage or decreased blood flow in an artery that supplies blood to the brain. Ticagrelor is usually given together with low-dose aspirin. Carefully follow your doctor's dosing instructions. Using too much aspirin can make ticagrelor less effective. Ticagrelor may also be used for purposes not listed in this medication guide. What should I discuss with my healthcare provider before taking ticagrelor? You should not use ticagrelor if you are allergic to it, or if you have: any active bleeding; or a history of bleeding in the brain (such as from a head injury). Tell your doctor if you have ever had: a stroke; heart problems; a surgery or bleeding injury; bleeding problems; a stomach ulcer or colon polyps; liver disease; or asthma, COPD (chronic obstructive pulmonary disorder) or other breathing problem. It is not known whether this medicine will harm an unborn baby. Tell your doctor if you are or plan to become . You should not breastfeed while using ticagrelor. How should I take ticagrelor? Follow all directions on your prescription label and read all medication guides or instruction sheets. Ticagrelor is taken together with aspirin. Use these medicines exactly as directed. Do not take more aspirin than your doctor has prescribed. Taking too much aspirin can make ticagrelor less effective. Take ticagrelor at the same times each day, with or without food. If you cannot swallow a tablet whole, crush the pill and mix it with water. Stir and drink this mixture right away. Add more water to the glass, stir, and drink right away. Ticagrelor keeps your blood from coagulating (clotting) and can make it easier for you to bleed, even from a minor injury. Contact your doctor or seek emergency medical attention if you have any bleeding that will not stop. To prevent excessive bleeding, you may need to stop using ticagrelor for a short time before a surgery, medical procedure, or dental work. Any healthcare provider who treats you should know that you are taking ticagrelor. Do not stop taking ticagrelor without first talking to your doctor, even if you have signs of bleeding. Stopping the medicine could increase your risk of a heart attack or stroke. This medicine may affect medical testing for platelets in your blood and you may have false results. Tell the laboratory staff that you use ticagrelor. Store at room temperature away from moisture and heat. What happens if I miss a dose? Skip the missed dose and use your next dose at the regular time. Do not use two doses at one time. What happens if I overdose? Seek emergency medical attention or call the Poison Help line at . Overdose can causeexcessive bleeding. What should I avoid while taking ticagrelor? Drinking alcohol while taking aspirin can increase your risk of stomach bleeding. Avoid activities that may increase your risk of bleeding or injury. Use extra care to prevent bleeding while shaving or brushing your teeth. While taking ticagrelor with aspirin, avoid using medicines for pain, fever, swelling, or cold/flu symptoms. They may contain ingredients similar to aspirin (such as salicylates, ibuprofen, ketoprofen, or naproxen). Taking certain products together can cause you to get too much aspirin which can increase your risk of bleeding. What are the possible side effects of ticagrelor? Get emergency medical help if you have signs of an allergic reaction: hives; difficult breathing; swelling of your face, lips, tongue, or throat. Call your doctor at once if you have: slow heartbeats; nosebleeds, or any bleeding that will not stop; shortness of breath even with mild exertion or while lying down; easy bruising, unusual bleeding, purple or red spots under your skin; red, pink, or brown urine; black, bloody, or tarry stools; or coughing up blood or vomit that looks like coffee grounds. Common side effects may include: bleeding; or shortness of breath. This is not a complete list of side effects and others may occur. Call your doctor for medical advice about side effects. You may report side effects to FDA at 8-060-AGQ-6331. What other drugs will affect ticagrelor? Sometimes it is not safe to use certain medications at the same time. Some drugs can affect your blood levels of other drugs you take, which may increase side effects or make the medications less effective. Tell your doctor about all your current medicines. Many drugs can affect ticagrelor, especially: antifungal medicine; antiviral medicine to treat HIV or AIDS; a blood thinner; cholesterol medication; heart or blood pressure medication; opioid medication; seizure medicine; or tuberculosis medicine. This list is not complete and many other drugs may affect ticagrelor. This includes prescription and uskt-pom-uymcxdd medicines, vitamins, and herbal products. Not all possible drug interactions are listed here. Where can I get more information? Your pharmacist can provide more information about ticagrelor. Remember, keep this and all other medicines out of the reach of children, never share your medicines with others, and use this medication only for the indication prescribed. Every effort has been made to ensure that the information provided by [employer]. ('[employer]') is accurate, up-to-date, and complete, but no guarantee is made to that effect. Drug information contained herein may be time sensitive. [employer] information has been compiled for use by healthcare practitioners and consumers in the [place] and therefore [employer] does not warrant that uses outside of the [place] are appropriate, unless specifically indicated otherwise. [employer] drug information does not endorse drugs, diagnose patients or recommend therapy. [employer] drug information isan informational resource designed to assist licensed healthcare practitioners in caring for their p atients and/or to serve consumers viewing this service as a supplement to, and not a substitute for, the expertise, skill, knowledge and judgment of healthcare practitioners. The absence of a warningfor a given drug or drug combination in no way should be construed to indicate that the drug or drug combination is safe, effective or appropriate for any given patient. [employer] does not assume any responsibility for any aspect of healthcare administered with the aid of information [employer] provides. The information contained herein is not intended to cover all possible uses, directions, precautions, warnings, drug interactions, allergic reactions, or adverse effects. If you have questions about the drugs you are taking, check with your doctor, nurse or pharmacist. Copyright 0751-3434 [employer]. Version: 5.. Revision Date: 09/15/2020. Education Materials HEART CATHETERIZATION/PCI (groin) Discharge Instructions DIET INSTRUCTIONS Drink plenty of fluids for the next 48 hours to help your kidneys flush the heart cath dye out of your system ACTIVITIES May go up and down stairs CAREFULLY Do not drive car FOR 24 HOURS No heavy lifting GREATER THAN 10 POUNDS or pushing or straining FOR 2 DAYS Someone must stay with you at home after the procedure until the morning. BATHING/SHOWERING May tub bathe in 1 week May shower tomorrow WOUND CARE You will go home with a Band-Aid over your heart cath site. Keep a Band-Aid on for the next 24 hours and then leave open to air. Some degree of bruising and tenderness is normal around the heart cath site. It will take a while for any bruising to completely resolve. Keep your site clean and dry. You need to report the following to your leasing machine tender: Any draining or oozing from the site Any swelling at the site Any increased pain or tenderness at the site Any numbness in your leg where the procedure was done Any signs of infection IMPORTANT! CALL 911 FOR ANY BLEEDING OR SWELLING AT THE PROCEDURE SITE If there is any large amount of bleeding, you or someone else need to apply direct pressure to the site (just like the nurse did in the heart lab after your procedure). It is very important that you hold constant pressure. Do not release the pressure to check if the bleeding has stopped. You then need to be transported to the nearest emergency room. WATCH FOR SIGNS OF INFECTION (Usually appears 36-48 hours after surgery) A temperature above 100.5 Redness or swelling Increased pain Foul odor or drainage If you have any questions, please call your doctor at the number listed on your follow up instructions. Follow all instructions given to you by your physician Document Released: 08/11/2006 Document Revised: 07/28/2013 Document Reviewed: 08/12/2014 ExitCare Patient Information 2015 trip.me. This information is not intended to replace advicegiven to you by your health care provider. Make sure you discuss any questions you have with your health care provider. Additional Information VACCINATE! IT SAVES LIVES! Members of the community who have not yet received the COVID-19 vaccine and would like to receive it can visit one of [facility] vaccine clinics. There are many vaccine clinic locations within the [facility]. For locations and available times, please visit [email or web address].[place].gov/. It is important to note that some COVID mobile vaccine clinics are held outdoors and may be canceled in rainy or stormy conditions. To learn more about pediatric vaccinations (ages 5-11), we invite you to visit the [facility] webpage. [email or web address]/[email or web address] [email or web address] learn more about the COVID-19 vaccine, we invite you to visit the CDC website for a list of frequently asked questions.https://www.cdc.gov/coronavirus/2019-ncov/vaccines/faq.html [employer] Patient Portal Access Instructions: Stay connected with your healthcare team and access your personal medical information anytime with the [employer] Patient Portal. Please follow the directions below to create your [employer] account: 1.Access the email account you provided upon registration to the hospital/physician office.2.Look for an invitation email from [facility].3.Open the email and access the invitation link: AcceptInvitation to [facility].4.Fill in the required chaparro to create your account. To access your account, visit [email or web address]. Click the blue button labeled Access Patient Portal and then log in with the username and password that you created in the steps above. You will be able to view your test results, lab results, a summary of your visits, upcoming appointments and more. There is also a convenient messaging option where you can send secure messages to your p rovider. In addition, you will have the ability to download any documents or summaries to your computer and/or send the information securely to a physician. Remember that your healthcare information is confidential, so carefully consider who you will allowto register on the [facility] [employer] [facility] Patient Portal for access to your information. You can also access the [facility] [employer] [facility] Patient Portal on the [facility] sulaiman. Simply click on Patient Portal and then log into your account. If you would like to receive a full copy of your medical records, please contact the [facility] Medical Records Department by calling [phone], Friday through Friday between 8 a.m. and 4:30 p.m. HOW TO SAFELY DISPOSE OF PRESCRIPTION MEDICATIONS Please use one of the following methods to safely dispose of your unused medications. 1.Use a drug disposal kit: the drug disposal pouch allows you to safely discard your old and unuseddrugs. Ask your nurse to give you one when you are discharged.2.Visit a local take-back location: Many local pharmacies and police departments have programs that collect old and unwanted prescriptiondrugs. Call your local pharmacy or go to http://bit.ly/9F6Bg5c to find one close to you.3.Make use of household items: Use cat litter or old coffee grounds to dispose medications if other options arenot available. Mix your drugs with these household products, seal them in an airtight container andthrow it into the garbage. Call [facility]: [phone] to be sure your drugs can be disposed of in this way. Some medicines may require a different approach.4.Never flush your medications down the toilet. IF YOU HAVE BEEN PRESCRIBED AN OPIOID FOR PAIN If you have been prescribed an opioid (such as hydrocodone, oxycodone or morphine), it is critical to understand the possible side effects and risks of opioid pain medications. Even when taken as directed, opioids can have several side effects including: Tolerance, meaning you might need to take more of a medication for the same pain relief. Nausea, vomiting and/or constipation. Sleepiness, dizziness, dry mouth, confusion, depression or itching. Physical dependence, meaning you have withdrawal symptoms when a medication is stopped, can develop within a few days. KNOW YOUR RESPONSIBILITIES It is important to know exactly how much and how often to take the opioid pain medications you are prescribed. Never take opioids in higher amounts or more often than prescribed. Do not combine opioids with alcohol or other drugs that cause drowsiness, such as benzodiazepines, also known as benzos, including diazepam and alprazolam, muscle relaxants or sleep aids. Never sell or share prescription opioids. This is illegal. Store opioids in a secure place and out of reach of others (including children, family, friends and visitors). The last page of this document has been signed and retained as a CHART COPY. Signatures Patient Education Materials 3- Heart Cath/PCI groin (05/2018)(CUSTOM) Medication Leaflets metoprolol succinate 100 mg oral TABLET extended release, Brilinta (ticagrelor) My discharge plan and instructions have been reviewed and explained to me and I,HOLDEN CHILD[employer] understand my current condition and have read and understand these discharge instructions. I have received a written copy of the plan/instructions. If I have questions, I am aware that I should contact my doctor. 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 Acute inferior ST segment elevation myocardial infarction [s/p PCI to mid RCA on 10/25/2023] 2. Coronary artery disease 3. Moderate Cardiomyopathy around 35 to 40% 4. Influenza A 5. Tobacco abuse 6. Anxiety Hospital Course Patient is a 53-year-old female she has history of tobacco abuse, COPD, anxiety who presents to theemergency department for chest pain that started approximately 12 hours ago. She is described as a heaviness in the chest associated with some shortness of breath. She described it as a 5 out of 10 in intensity it did move into the epigastric area as well. No associated nausea vomiting. She did have some diaphoresis. Denies any fevers chills cough wheezing or sputum production. At [facility] she was found to be influenza A positive, troponin's were 25,000 and EKG did show minimal ST elevations in the inferior leads. STEMI alert was called and she was transferred emergently to [facility] for further evaluation and management. [10/27/2023]: Hemoglobin stable x 2. Patient stable to be discharged home on dual antiplatelets. [10/26/2023]: Patient developed retroperitoneal bleed, hemoglobin 6.5. S/p 3 PRBC transfusion. Vascular surgery consulted and recommended to continue dual antiplatelets. [10/25/2023]: Status post PCI to mid RCA. Allergies codeine (nause) Consults Consult to Physician - Ordered -- 10/25/23 19:01:00 EST, CHANTEL MARTELL MD, Urgent, follow medically, Large retroperitoneal bleedwith hemorrhagic shock Consult to Spiritual Care Team (Consult to Pastoral Care) - Ordered -- 10/25/23 15:24:59 EST Consult to Tobacco Handwriting Expert - Ordered -- 10/25/23 15:32:47 EST, Once Objective Vitals and Measurements T: 37.1 C (Oral) TMIN: 36.7 C (Oral) TMAX: 37.5 C (Oral) HR: 82(Monitored) RR: 16 BP: 106/61 SpO2: 98% Weight Dosing Weight: 45.9 kg (10/25/23) General: AAOX3, NAD HEENT: Anicteric sclera, MMM Neck: Trachea midline, no JVD appreciated CVS: RRR, normal S1/S2, no murmurs/rubs/gallops Lung: CTAB, no wheezes/rhonchi/rales Abd: Soft, NT/ND Extrem: WWP, no LE edema Skin: Warm, Intact Neuro: AAOX3, spontaneous movement of all extremities Psych: Appropriate mood & affect Code Status Code Status - Ordered -- 10/25/23 16:12:00 EST, Full Code, Constant Order Admission Date 10/25/2023 Discharge Date 10/27/2023 Medications New Prescription aspirin (Simply Zesty Aspirin 81 mg oral tablet, (chewable))1 tab(s) by mouth once a day with a meal for 90 Days. Refills: 4. atorvastatin (Lipitor 40 mg oral tablet)1 tab(s) by mouth once a day for 90 Days. Refills: 4. metoprolol (metoprolol succinate 25 mg oral TABLET extended release)0.5 tab(s) by mouth once a day for 30 Days. Refills: 2. ticagrelor (ticagrelor 90 mg oral tablet)1 tab(s) by mouth every 12 hours for 90 Days. Refills: 4. Unchanged cyclobenzaprine (cyclobenzaprine 10 mg oral tablet)1 tab(s) by mouth once a day. magnesium oxide (magnesium oxide 400 mg oral capsule)1 cap by mouth two (2) times a day. montelukast (montelukast 10 mg oral tablet)1 tab(s) by mouth once a day. pregabalin (Lyrica 150 mg oral capsule)1 cap by mouth once a day. sertraline (sertraline 100 mg oral tablet)1 tab(s) by mouth two (2) times a day. Discontinued meloxicam (meloxicam 15 mg oral tablet)1 tab(s) by mouth once a day. propranolol (propranolol 60 mg oral tablet)1 tab(s) by mouth two (2) times a day. Follow Up Follow Up with MIO TERRAZAS MD When In 2 weeks Where: [address] [facility] [place] [address]- [phone] Follow Up with Prescription Assistance When Only if needed Why: A voucher has been arranged for you and is available for non-narcotic medications ordered by your doctor. To access, bring your prescriptions to the [facility] located in the [place] [facility] the main floor of the hospital . Pharmacy hours are: Friday - Friday: 6 AM to 5 PM Friday: 8 AM to 2 PM Friday: CLOSED Where: [phone] Follow Up with *[facility] will contact you for an appointment in 1-2 weeks If you have any questions please call:[phone]. When Where: Follow Up Appointments No qualifying data available. Follow Up Labs/Studies Discharge Labs No Follow-up Labs Discharge Studies No Follow-up Studies Discharge Diet No qualifying data available. Discharge Activity No qualifying data available. Condition on Discharge Stable Readmission Risk/Palliative Score No qualifying data available. Discharge Disposition Home [1] History and Physical; MIO TERRAZAS MD 10/25/2023 14:49 EST Digitally Signed by CARMITA BELTRAN MD on 10/27/2023 03:12 PM Digitally Signed by BING ANDINO MD [facility] [id number] Note* Exam Date Time Procedure Performing Provider Status 10/27/23 10:11 AM Echocardiogram, Adult - CV Auth (Verified) [facility] 03-04-2024 Cardiology Progress note Date of Service 10/25/23 Paged by bedside nurse due to patient becoming hypotensive shortly after coming upstairs from the [employer]. On evaluation, patient was cold and clammy, complaining of lightheadedness. SBP 60 mmHg over Doppler. Despite patient improving transiently with 1 L of NS bolus, blood pressures dropped again due to which she was given an additional liter of normal saline along with Levophed infusion beingstarted. Bedside echo demonstrated preserved EF with inferoseptal wall motion abnormalities and a completely collapsed IVC. Though groin site looked normal, manual pressure was held on the groin sitefor 20 min and stat CBC/CMP/lactic acid were done along with CT abdomen/pelvis without contrast to r ule out retroperitoneal bleed. If patient continues to stay hypotensive and Hb drops below 10 g/dL,will transfuse PRBC. Plan discussed with bedside nurse and patient's son. Digitally Signed by ALIDA ORNELAS MD on 10/25/2023 06:39 PM [facility] [id number] Cardiology Progress note Date of Service 10/26/23 Subjective Has been doing well since last night. Denies chest pain/abdominal pain/pain at right groin site. Was in a cheerful mood this morning. Objective Vitals and Measurements T: 36.7 C (Oral) TMIN: 36.6 C (Oral) TMAX: 36.9 C (Oral) HR: 84(Monitored) RR: 16 BP: 128/72 SpO2: 100% Intake and Output 7AM Yesterday to 7AM Today Intake and Output (Last 24 hours) Intake Red Blood Cells Amount Transfused 1500.00 Oral Intake 1280.00 Output Emesis 2.00 Urinary Catheter Output: 650.00 Urine Count 2.00 Total Summary Total Intake 2780.00 Total Output 652.00 Fluid Balance 2128.00 Physical Exam GENERAL APPEARANCE: Lying on bed; _ SKIN: Warm EXTREMITIES: No cyanosis/clubbing. No significant pedal edema HEENT: PERRL, EOMI. JVD not elevated NECK: Supple. Trachea is midline. Right IJV line noted. CHEST: Symmetric. Nontender to palpation. LUNGS: Normal vesicular breath sounds, no rales HEART: RRR, S1, S2 +. No murmurs, gallops, or rubs. ABDOMEN: Soft. No organomegaly. NEUROLOGIC: A&O, moving all four extremities. Weight Dosing Weight: 45.9 kg (10/25/23) Medications Medications (16) Active Scheduled: (4) aspirin 81 mg Chewable 81 mg 1 tab(s), Oral, qDayM atorvastatin 40 mg tablet 40 mg 1 tab(s), Oral, qDay No metformin for 48 hrs post contrast 1 EA, Miscellaneous, Unscheduled ticagrelor 90 mg tablet 90 mg 1 tab(s), Oral, q12h Continuous: (1) norepinephrine 8 mg [5 mcg/min] + NS Premix Diluent 250 mL 250 mL, Intravenous, 9.38 mL/hr PRN: (11) acetaminophen 325 mg Tablet 650 mg 2 tab(s), Oral, q4h albuterol - ipratropium 2.5 mg-0.5 mg/3 mL Inhal Lima UD 3 mL, Inhalation, q4hRT dextrose 50% Solution Disp syringe 50 mL 12.5 gram(s) 25 mL, IV Push, AsDirected magnesium sulfate 4 gram(s)/100mL PMX 4 g 100 mL, IV Piggyback, AsDirected magnesium sulfate 50% (500mg/mL) 6 g 12 mL, IV Piggyback, AsDirected magnesium sulfate PMX 2 g 50 mL, IV Piggyback, AsDirected melatonin 3 mg tablet 3 mg 1 tab(s), Oral, qHS potassium chloride (PMX) 20 mEq/100 mL 20 mEq 100 mL, IV Piggyback, AsDirected potassium chloride 20 mEq ER tablet 20 mEq 1 tab(s), Oral, AsDirected potassium chloride 20 mEq ER tablet 40 mEq 2 tab(s), Oral, AsDirected potassium chloride 20 mEq ER tablet 40 mEq 2 tab(s), Oral, AsDirected Lab Results 10/25 16:07 Hgb: 10.6 L Hct: 30.7 L 10/25 10:41 Hgb: 9.7 L Hct: 28.5 L 10/25 03:40 WBC: 15.4 H Hgb: 10.4 L Hct: 30.9 L Platelet: 138 L Neutrophil %: 79.6 H Glucose Level: 169 H Sodium Level: 141 Potassium Level: 3.8 BUN: 18.0 Creatinine Lvl (s): 0.71 10/24 23:42 Hgb: 11.9 L Hct: 35.5 10/24 20:15 WBC: 31.4 H Hgb: 6.5 C Hct: 20.0 L Platelet: 371 Neutrophil %: 84.3 H 10/24 18:30 WBC: 31.0 H Hgb: 7.4 L Hct: 22.4 L Platelet: 368 Neutrophil %: 80.1 H Glucose Level: 224 H Sodium Level: 143 Potassium Level: 4.2 BUN: 18.0 Creatinine Lvl (s): 0.80 10/24 17:03 WBC: 28.4 H Hgb: 10.6 L Hct: 31.6 L Platelet: 353 Neutrophil %: 83.6 H Glucose Level: 168 H Sodium Level: 141 Potassium Level: 3.9 BUN: 16.0 Creatinine Lvl (s): 0.66 EKG EKG - Completed -- 10/25/23 15:18:00 EST EKG - Completed -- 10/25/23 17:06:00 EST EKG - Completed -- 10/25/23 17:49:00 EST Assessment/Plan -- Acute Inferior STEMI s/p GERMAN to mid RCA [October 25, 2023] -- Hemorrhagic shock secondary to right retroperitoneal bleed s/p 3 PRBC, conservatively managed -- 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 Hb stable since last night, will continue trending today. Vascular surgery on board for recent retroperitoneal bleed, recommendations appreciated. If patient continues to be stable over the next 24 hours, will gradually add Toprol-XL/losartan prior to discharge as tolerated. Digitally Signed by ALIDA ORNELAS MD on 10/26/2023 07:37 PM [facility] [id number] Cardiology Progress note Date of Service 10/26/23 Subjective Has been doing well since last night. Denies chest pain/abdominal pain/pain at right groin site. Was in a cheerful mood this morning. Objective Vitals and Measurements T: 36.7 C (Oral) TMIN: 36.6 C (Oral) TMAX: 36.9 C (Oral) HR: 84(Monitored) RR: 16 BP: 128/72 SpO2: 100% Intake and Output 7AM Yesterday to 7AM Today Intake and Output (Last 24 hours) Intake Red Blood Cells Amount Transfused 1500.00 Oral Intake 1280.00 Output Emesis 2.00 Urinary Catheter Output: 650.00 Urine Count 2.00 Total Summary Total Intake 2780.00 Total Output 652.00 Fluid Balance 2128.00 Physical Exam GENERAL APPEARANCE: Lying on bed; _ SKIN: Warm EXTREMITIES: No cyanosis/clubbing. No significant pedal edema HEENT: PERRL, EOMI. JVD not elevated NECK: Supple. Trachea is midline. Right IJV line noted. CHEST: Symmetric. Nontender to palpation. LUNGS: Normal vesicular breath sounds, no rales HEART: RRR, S1, S2 +. No murmurs, gallops, or rubs. ABDOMEN: Soft. No organomegaly. NEUROLOGIC: A&O, moving all four extremities. Weight Dosing Weight: 45.9 kg (10/25/23) Medications Medications (16) Active Scheduled: (4) aspirin 81 mg Chewable 81 mg 1 tab(s), Oral, qDayM atorvastatin 40 mg tablet 40 mg 1 tab(s), Oral, qDay No metformin for 48 hrs post contrast 1 EA, Miscellaneous, Unscheduled ticagrelor 90 mg tablet 90 mg 1 tab(s), Oral, q12h Continuous: (1) norepinephrine 8 mg [5 mcg/min] + NS Premix Diluent 250 mL 250 mL, Intravenous, 9.38 mL/hr PRN: (11) acetaminophen 325 mg Tablet 650 mg 2 tab(s), Oral, q4h albuterol - ipratropium 2.5 mg-0.5 mg/3 mL Inhal [place] UD 3 mL, Inhalation, q4hRT dextrose 50% Solution Disp syringe 50 mL 12.5 gram(s) 25 mL, IV Push, AsDirected magnesium sulfate 4 gram(s)/100mL PMX 4 g 100 mL, IV Piggyback, AsDirected magnesium sulfate 50% (500mg/mL) 6 g 12 mL, IV Piggyback, AsDirected magnesium sulfate PMX 2 g 50 mL, IV Piggyback, AsDirected melatonin 3 mg tablet 3 mg 1 tab(s), Oral, qHS potassium chloride (PMX) 20 mEq/100 mL 20 mEq 100 mL, IV Piggyback, AsDirected potassium chloride 20 mEq ER tablet 20 mEq 1 tab(s), Oral, AsDirected potassium chloride 20 mEq ER tablet 40 mEq 2 tab(s), Oral, AsDirected potassium chloride 20 mEq ER tablet 40 mEq 2 tab(s), Oral, AsDirected Lab Results 10/25 16:07 Hgb: 10.6 L Hct: 30.7 L 10/25 10:41 Hgb: 9.7 L Hct: 28.5 L 10/25 03:40 WBC: 15.4 H Hgb: 10.4 L Hct: 30.9 L Platelet: 138 L Neutrophil %: 79.6 H Glucose Level: 169 H Sodium Level: 141 Potassium Level: 3.8 BUN: 18.0 Creatinine Lvl (s): 0.71 10/24 23:42 Hgb: 11.9 L Hct: 35.5 10/24 20:15 WBC: 31.4 H Hgb: 6.5 C Hct: 20.0 L Platelet: 371 Neutrophil %: 84.3 H 10/24 18:30 WBC: 31.0 H Hgb: 7.4 L Hct: 22.4 L Platelet: 368 Neutrophil %: 80.1 H Glucose Level: 224 H Sodium Level: 143 Potassium Level: 4.2 BUN: 18.0 Creatinine Lvl (s): 0.80 10/24 17:03 WBC: 28.4 H Hgb: 10.6 L Hct: 31.6 L Platelet: 353 Neutrophil %: 83.6 H Glucose Level: 168 H Sodium Level: 141 Potassium Level: 3.9 BUN: 16.0 Creatinine Lvl (s): 0.66 EKG EKG - Completed -- 10/25/23 15:18:00 EST EKG - Completed -- 10/25/23 17:06:00 EST EKG - Completed -- 10/25/23 17:49:00 EST Assessment/Plan -- Acute Inferior STEMI s/p GERMAN to mid RCA [October 25, 2023] -- Hemorrhagic shock secondary to right retroperitoneal bleed s/p 3 PRBC, conservatively managed -- 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 Hb stable since last night, will continue trending today. Vascular surgery on board for recent retroperitoneal bleed, recommendations appreciated. If patient continues to be stable over the next 24 hours, will gradually add Toprol-XL/losartan prior to discharge as tolerated. Digitally Signed by ALIDA ORNELAS MD on 10/26/2023 07:37 PM [facility] [id number] Note* Exam Date Time Procedure Performing Provider Status 10/26/23 9:27 AM VL Arterial US/Doppl er Pseudoaneurysm-CV Auth (Verified) [facility] 03-03-2024 Vascular surgery Consult note Date of Service 10/26/23 History of Present Illness 3-year-old white female status post STEMI developed postprocedural hypotension. CT scan showed a retroperitoneal hematoma. Patient was resuscitated by the cardiac team and then sent down for repeat CT angio after discussion of the case this showed no active bleeding. She was resuscitated with 3 units of packed cells and did quite well thereafter. A compression dressing was placed overnight she isnot having any significant pain or other B leg or abdominal Review of Systems As above Physical Exam Vitals and Measurements T: 36.9 C (Oral) TMIN: 36.5 C (Oral) TMAX: 36.9 C (Oral) HR: 80(Apical) HR: 82(Monitored) RR: 16 BP: 104/56 SpO2: 99% HT: 165.1 cm WT: 45.9 kg BMI: 16.84 Weight Dosing Weight: 45.9 kg (10/25/23) Middle-age female alert cooperative no acute distress appears to be in good spirits Abdomen is nondistended. There are some mild discomfort to palpation in the left lower abdomen and flank. There is no aguilar large ecchymosis or hematoma palpable. The groin site after the bandage is removed appears to be soft clean dry. Little bit of standing on the original dressing Femoral pedal pulses are intact bilateral feet are well-perfused Lab Results 10/25 03:40 WBC: 15.4 H Hgb: 10.4 L Hct: 30.9 L Platelet: 138 L Neutrophil %: 79.6 H Glucose Level: 169 H Sodium Level: 141 Potassium Level: 3.8 BUN: 18.0 Creatinine Lvl (s): 0.71 10/24 23:42 Hgb: 11.9 L Hct: 35.5 10/24 20:15 WBC: 31.4 H Hgb: 6.5 C Hct: 20.0 L Platelet: 371 Neutrophil %: 84.3 H 10/24 18:30 WBC: 31.0 H Hgb: 7.4 L Hct: 22.4 L Platelet: 368 Neutrophil %: 80.1 H Glucose Level: 224 H Sodium Level: 143 Potassium Level: 4.2 BUN: 18.0 Creatinine Lvl (s): 0.80 10/24 17:03 WBC: 28.4 H Hgb: 10.6 L Hct: 31.6 L Platelet: 353 Neutrophil %: 83.6 H Glucose Level: 168 H Sodium Level: 141 Potassium Level: 3.9 BUN: 16.0 Creatinine Lvl (s): 0.66 Imaging Results and Diagnostics CTA reviewed as well as original's CAT scan Assessment/Plan Orders: Communication Order (continuous) Status post STEMI emergent cath with postprocedural retroperitoneal hematoma. No active bleeding noted on repeat CTA compression dressing removed. She has done well with resuscitation lab studies andvital signs are now stabilized. Will check an arterial duplex right groin as a follow-up. If negative patient can get up to chair and start to mobilize. Counseled the patient finds recommendation spoke to nursing staff today Problem List/Past Medical History Ongoing No qualifying data Historical No qualifying data Procedure/Surgical History Hysterectomy: 2009 Tonsillectomy: 1986 Appendectomy: 1977 Medications Inpatient [facility] Aspirin, 81 mg= 1 tab(s), Oral, qDayM Dextrose 50% IV Push, 12.5 gram(s)= 25 mL, IV Push, AsDirected, PRN DuoNeb, 3 mL, Inhalation, q4hRT, PRN Lipitor, 40 mg= 1 tab(s), Oral, qDay magnesium sulfate for IV bolus, 2 gram(s)= 50 mL, IV Piggyback, AsDirected, PRN magnesium sulfate for IV bolus, 4 gram(s)= 100 mL, IV Piggyback, AsDirected, PRN magnesium sulfate for IV bolus melatonin, 3 mg= 1 tab(s), Oral, qHS, PRN NO METFORMIN (Glucophage) X 48hrs-patient has received contrast, 1 EA, Miscellaneous, Unscheduled Norepinephrine for IV 8 mg [5 mcg/min] + NS PMX titrate 250 mL potassium chloride, 20 mEq= 1 tab(s), Oral, AsDirected, PRN potassium chloride, 40 mEq= 2 tab(s), Oral, AsDirected, PRN potassium chloride, 40 mEq= 2 tab(s), Oral, AsDirected, PRN potassium chloride bolus, 20 mEq= 100 mL, IV Piggyback, AsDirected, PRN ticagrelor, 90 mg= 1 tab(s), Oral, q12h Tylenol, 650 mg= 2 tab(s), Oral, q4h, PRN Home cyclobenzaprine 10 mg oral tablet, 10 mg= 1 tab(s), Oral, qDay Lyrica 150 mg oral capsule, 150 mg= 1 cap(s), Oral, qDay magnesium oxide 400 mg oral capsule, 400 mg= 1 cap(s), Oral, BID meloxicam 15 mg oral tablet, 15 mg= 1 tab(s), Oral, qDay montelukast 10 mg oral tablet, 10 mg= 1 tab(s), Oral, qDay propranolol 60 mg oral tablet, 60 mg= 1 tab(s), Oral, BID sertraline 100 mg oral tablet, 100 mg= 1 tab(s), Oral, BID Allergies codeine (nause) Social History Substance Abuse Use: Never., 10/25/2023 Tobacco Nicotine Use: 10 or more cigarettes (1/2 pack or more)/day in last 30 days. Type: Cigarettes. Number of years: 25., 10/25/2023 Immunizations No qualifying data available. Digitally Signed by JOSE PELLETIER MD on 10/26/2023 09:22 AM [facility] [id number] Procedure note Date of Service 10/25/23 A time-out was completed verifying correct patient, procedure, site, positioning, and special equipment if applicable. The patient was placed in a dependent position appropriate for central line placement based on the vein to be cannulated. The patient s right neck was prepped and draped in sterile fashion. 1% Lidocaine was used to anesthetize the surrounding skin area. A triple lumen catheter was introduced into the the internal jugular using the Seldinger technique under ultrasound guidance. The catheter was threaded smoothly over the guide wire and appropriate blood return was obtained. Each lumen of the catheter was evacuated of air and flushed with sterile saline. The catheter was thensutured in place to the skin and a sterile dressing applied. Perfusion to the extremity distal to the point of catheter insertion was checked and found to be adequate. Senior resident was present forthe entire procedure. Estimated Blood Loss: less than 5 ml The patient tolerated the procedure well and there were no complications Digitally Signed by ALIDA ORNELAS MD on 10/26/2023 04:11 AM [facility] [id number] Cardiology Progress note Date of Service 10/25/23 Paged by bedside nurse due to patient becoming hypotensive shortly after coming upstairs from the [employer]. On evaluation, patient was cold and clammy, complaining of lightheadedness. SBP 60 mmHg over Doppler. Despite patient improving transiently with 1 L of NS bolus, blood pressures dropped againdue to which she was given an additional liter of normal saline along with Levophed infusion being started. Bedside echo demonstrated preserved EF with inferoseptal wall motion abnormalities and a completely collapsed IVC. Though groin site looked normal, manual pressure was held on the groin site for 20 min and stat CBC/CMP/lactic acid were done along with CT abdomen/pelvis without contrast to rule out retroperitoneal bleed. If patient continues to stay hypotensive and Hb drops below 10 g/dL, will transfuse PRBC. Plan discussed with bedside nurse and patient's son. Digitally Signed by ALIDA ORNELAS MD on 10/25/2023 06:39 PM [facility] [id number] Note ORIGINAL EXAMINATION: ONE XRAY VIEW OF THE CHEST 10/25/2023 8:56 pm COMPARISON: October 25, 2023 HISTORY: ORDERING SYSTEM PROVIDED HISTORY: Reason for Exam: central line FINDINGS: CVC terminates at the SVC. No pneumothorax seen. The heart and pulmonary vessels are unremarkable. No infiltrate or pleural fluid seen. IMPRESSION: No postprocedure pneumothorax. Interpreted by: Jama Lomax MD Preliminary Report By: Jama Lmoax MD Electronically signed By Jama Lomax MD Dictated Date: 10/25/2023 8:58:01 PM Prelim Date: 10/25/2023 8:58:34 PM Sign Date: 10/25/2023 8:58:34 PM Ordering Provider: ALIDA ORNELASL[facility] [id number] Note ORIGINAL EXAMINATION: CTA OF THE ABDOMEN AND PELVIS WITH CONTRAST 10/25/2023 8:53 pm: TECHNIQUE: CTA of the abdomen and pelvis was performed with the administration of intravenous contrast. Multiplanar reformatted images are provided for review. MIP images are provided for review. Automated exposure control, iterative reconstruction, and/or weight based adjustment of the mA/kV was utilized to reduce the radiation dose to as low as reasonably achievable. COMPARISON: Same day noncontrast CT abdomen/pelvis. HISTORY: ORDERING SYSTEM PROVIDED HISTORY: Reason for Exam: Retroperitoneal bleed with hemorrhagic shock FINDINGS: There is redemonstration of extensive predominantly right-sided retroperitoneal hemorrhage extending into the upper abdomen adjacent to the right hepatic lobe and posterior to the right kidney not significantly changed from same day CT abdomen/pelvis. Extension into the pelvic extraperitoneum is again noted with marked wall thickening of the bladder. No findings to suggest active contrast extravasation at this time. The aorta is nonaneurysmal. There are single bilateral patent renal arteries without significant stenosis. Mild atherosclerotic plaque is seen of the proximal right common iliac artery. The ostium of the celiac and SMA arteries are widely patent. MARIA E is seen. There is a short segment arterial dissection of the distal most aspect of the external iliac artery extending into the proximal common femoral artery ([phone]). The vasculature including the superficial femoral artery and profundus femoris appear opacified without significant stenosis. Left common iliac artery and branching vasculature are unremarkable. Again noted are hazy infiltrative changes surround the right groin extending laterally corresponding to postprocedural changes to recent cardiac catheterization. The remaining findings are unchanged. IMPRESSION: Similar prominent retroperitoneal/extraperitoneal hemorrhage without evidence of active contrast extravasation. 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 I have personally reviewed the images of this examination and agree with the resident's finding and interpretation. Interpreted by: Jama Lomax MD Preliminary Report By: Lizzeth Nascimento Electronically signed By Jama Lomax MD Dictated Date: 10/25/2023 8:54:52 PM Prelim Date: 10/25/2023 9:07:29 PM Sign Date: 10/25/2023 9:23:17 PM Ordering Provider: [facility]03-02-2024 Note ORIGINAL EXAMINATION: CT OF THE ABDOMEN AND PELVIS WITHOUT CONTRAST 10/25/2023 6:45 pm TECHNIQUE: CT of the abdomen and pelvis was performed without the administration of intravenous contrast. Multiplanar reformatted images are provided for review. Automated exposure control, iterative reconstruction, and/or weight based adjustment of the mA/kV was utilized to reduce the radiation dose to as low as reasonably achievable. COMPARISON: None. HISTORY: ORDERING SYSTEM PROVIDED HISTORY: Reason for Exam: STEMI post cath, suspected retroperitoneal bleed FINDINGS: The lung bases are unremarkable. The liver, spleen, adrenal glands, and pancreas are unremarkable. Hyperdense material within the gallbladder favors vicarious excretion of contrast. The kidneys appear symmetric without evidence of hydronephrosis. Contrast is seen within the bilateral kidneys and renal pelvis likely relating to history of recent cardiac catheterization. Nondilated loops of small bowel. The appendix is not identified and reported surgically absent. The colon demonstrates no acute abnormality. There is no free intraperitoneal air. Nonaneurysmal minimally atherosclerotic abdominal aorta. No lymphadenopathy is identified. The uterus is surgically absent. Scattered phleboliths. There are hazy infiltrative changes surrounding the right groin extending laterally into the right anterior thigh musculature corresponding to postsurgical changes relating to recent cardiac catheterization. There is extensive retroperitoneal hemorrhage which extends into the upper abdomen adjacent to the right hepatic lobe and posterior to the right kidney. A small amount of hemorrhage is also seen layering within the left paracolic gutter. Blood extends into the pelvic extraperitoneal spaces bilaterally adjacent to the urinary bladder. The pelvis is difficult to evaluate without IV contrast. The bladder is suspected to demonstrate marked wall thickening with intraluminal contrast. Small amount of contrast is also seen within the vagina. Multilevel degenerative changes of the spine most prominent the L5-S1 level. No acute or aggressive osseous abnormality. IMPRESSION: Lack of IV contrast limits some evaluation. Within this constraint: Prominent retroperitoneal hemorrhage predominantly on the right extending into the upper abdomen adjacent to the liver and posterior to the right kidney. Postprocedural changes within the right groin relating to history of recent cardiac catheterization. Consider contrast enhanced exam for evaluation of active extravasation. Suspected marked wall thickening of the bladder which is favored reactive secondary to prominent adjacent pelvic extraperitoneal hemorrhage/blood although correlation with urinalysis is recommended. I have personally reviewed the images of this examination and agree with the resident's finding and interpretation. Interpreted by: Jama Lomax MD Preliminary Report By: Lizzeth Nascimento Electronically signed By Jama Lomax MD Dictated Date: 10/25/2023 6:48:03 PM Prelim Date: 10/25/2023 6:59:18 PM Sign Date: 10/25/2023 7:05:01 PM Ordering Provider: [facility]03-02-2024 Cardiology Progress note Date of Service 10/25/23 Paged by bedside nurse due to patient becoming hypotensive shortly after coming upstairs from the [employer]. On evaluation, patient was cold and clammy, complaining of lightheadedness. SBP 60 mmHg over Doppler. Despite patient improving transiently with 1 L of NS bolus, blood pressures dropped againdue to which she was given an additional liter of normal saline along with Levophed infusion being started. Bedside echo demonstrated preserved EF with inferoseptal wall motion abnormalities and a completely collapsed IVC. Though groin site looked normal, manual pressure was held on the groin site for 20 min and stat CBC/CMP/lactic acid were done along with CT abdomen/pelvis without contrast to rule out retroperitoneal bleed. If patient continues to stay hypotensive and Hb drops below 10 g/dL, will transfuse PRBC. Plan discussed with bedside nurse and patient's son. Digitally Signed by ALIDA ORNELAS MD on 10/25/2023 06:39 PM [facility] [id number] NoteSINUS RHYTHM PROBABLE INFERIOR INFARCT, RECENT POSTERIOR INFARCT, ACUTE (LCX) LATERAL LEADS ARE ALSO INVOLVED ST DEPRESSION V1-V3, SUGGEST RECORDING POSTERIOR LEADS Electronic Signature: LITO ENGLAND MD 10/26/2023 15:59:44[facility] 03-02-[facility]24 NoteSINUS RHYTHM LAE, CONSIDER BIATRIAL ENLARGEMENT INFEROPOSTERIOR INFARCT, RECENT LATERAL LEADS ARE ALSO INVOLVED Electronic Signature: LITO ENGLAND MD 10/26/2023 15:59:37[facility] 03-02-2024 NoteSINUS RHYTHM PROBABLE LEFT ATRIAL ENLARGEMENT ABNORMAL R-WAVE PROGRESSION, EARLY TRANSITION PROBABLE INFERIOR INFARCT, RECENT Electronic Signature: LITO ENGLAND MD 10/26/2023 15:59:28[facility] 03-02-2024 History and physical note Date of Service October 25, 2023 Chief Complaint Inferior STEMI History of Present Illness Patient is a 53-year-old female she has history of tobacco abuse, COPD, anxiety who presents to theemergency department for chest pain that started approximately 12 hours ago. She is described as a heaviness in the chest associated with some shortness of breath. She described it as a 5 out of 10 in intensity it did move into the epigastric area as well. No associated nausea vomiting. She did have some diaphoresis. Denies any fevers chills cough wheezing or sputum production. At [place] [facility] she was found to be influenza A positive, troponin's were 25,000 and EKG did show minimal ST elevations in the inferior leads. STEMI alert was called and she was transferred emergently to [facility] for further evaluation and management. Review of Systems Reference HPI other review of systems negative Physical Exam Vitals and Measurements No qualifying data available. General: Patient is alert and oriented x3. no acute distress. HEENT: Pupils equal and reactive. Moist mucous membranes. Neck: Neck supple. Skin: Skin is warm well perfused. Respiratory: Clear to auscultation bilaterally. Cardia vascular: Regular rate and rhythm. No appreciable murmur. No lower extremity edema. No JVD. Abdomen: Abdomen soft nontender rebound or guarding. Neurological: Cranial nerves are intact. Motors all extremities. Lab Results No 36 Hour Lab Data Assessment/Plan Assessment: 1. Acute inferior ST segment elevation myocardial infarction 2. Coronary artery disease 3. Moderate Cardiomyopathy around 35 to 40% 4. Influenza A 5. Tobacco abuse 6. Anxiety Plan: 1. Patient was taken emergently to the cardiac catheterization lab coronary angiography was performed. Angiography revealed acute mid RCA occlusion status post PCI and 1 stent placement. She has beenloaded with aspirin and Brilinta will be continued on these for dual antiplatelet therapy. She willbe started on high intensity statin Lipitor 40 mg daily as well as beta-babatunde and ARB therapy. 2. Left ventriculography was performed that showed moderate cardiomyopathy around 35 to 40%. We will obtain official transthoracic echocardiogram for further evaluation of the function and any underlying structural or valvular heart disease. She will be started on metoprolol XL as well as low-dose l osartan. He is can be titrated as her hemodynamics tolerate. 3. Further risk factor stratification with hemoglobin A1c, lipid profile, TSH urinalysis electrolyte analysis. 4. Strongly encouraged tobacco cessation. 5. Further recommendations management after above testing clinical course. Problem List/Past Medical History Ongoing No qualifying data Historical No qualifying data Procedure/Surgical History No qualifying data available. Medications No qualifying data available Allergies No active allergies Social History Tobacco abuse. Family History Mother had coronary disease. Immunizations No qualifying data available. Code Status Full code Digitally Signed by MIO TERRAZAS MD on 10/25/2023 02:54 PM Digitally Signed by MIO TERRAZAS MD on 10/25/2023 02:55 PM [facility] [id number] Note* Exam Date Time Procedure Performing Provider Status 10/25/23 2:20 PM Cardiac Catheterization -CV Auth (Verified) [facility] 03-02-2024 Evaluation + Plan noteExtracted from: Title:History and Physical Author:MIO TERRAZAS MD Date:10/25/23 Assessment: 1. Acute inferior ST segment elevation myocardial infarction 2. Coronary artery disease 3. Moderate Cardiomyopathy around 35 to 40% 4. Influenza A 5. Tobacco abuse 6. Anxiety Plan: 1. Patient was taken emergently to the cardiac catheterization lab coronary angiography was performed. Angiography revealed acute mid RCA occlusion status post PCI and 1 stent placement. She has been loaded with aspirin and Brilinta will be continued on these for dual antiplatelet therapy. She will be started on high intensity statin Lipitor 40 mg daily as well as beta-babatunde and ARB therapy. 2. Left ventriculography was performed that showed moderate cardiomyopathy around 35 to 40%. We will obtain official transthoracic echocardiogram for further evaluation of the function and any underlying structural or valvular heart disease. She will be started on metoprolol XL as well as low-dose losartan. He is can be titrated as her hemodynamics tolerate. 3. Further risk factor stratification with hemoglobin A1c, lipid profile, TSH urinalysis electrolyte analysis. 4. Strongly encouraged tobacco cessation. 5. Further recommendations management after above testing clinical course. Future Appointments Appointment Date:11/24/2023 10:15:00 AM Scheduled Provider: Location:[facility] Appointment Type:[facility] 06-28-2023 Miscellaneous Notes* Telephone Encounter - Vicente Chairez MA - 02/19/2023 2:21 PM EDT Rx already sent to pharmacy. Please decline Pharmacy faxed requesting the following refill. Requested Prescriptions Pending Prescriptions Disp Refills montelukast (SINGULAIR) 10 mg tablet [Pharmacy Med Name: MONTELUKAST 10MG TABLETS] 90 tablet 0 Sig: Take 1 tablet by mouth daily at bedtime. Patient last appointment: 10/17/2022 Next Appointment: Visit date not found Patient Phone numbers: [phone] (home) [phone] (work) Request is for script(s) to be escript to pharmacy. Vicente Chairez MA documented in this encounterK[facility]14-2023 Miscellaneous Notes* Telephone Encounter - Vicente Chairez MA - 11/05/2022 10:09 AM EDT Pharmacy faxed requesting the following refill. Requested Prescriptions Pending Prescriptions Disp Refills cyclobenzaprine (FLEXERIL) 5 mg tablet [Pharmacy Med Name: CYCLOBENZAPRINE 5MG TABLETS] 90 tablet 0 Sig: Take 1 tablet by mouth daily at bedtime. Patient last appointment: 10/17/2022 Next Appointment: 02/19/2023 Patient Phone numbers: [phone] (home) [phone] (work) Request is for script(s) to be escript to pharmacy. Vicente Chairez MA documented in this encounterK[facility]02-23-2023 History of Present illness Narrative* Yin Parekh MD - 10/17/2022 8:06 AM EST This note was created using [employer]. Subjective Holden Childers is a 52 year old female. I have a lot of sinus pressure Pain Few week Zyrtec d bid not helping Nothing has helped Nose is swollen Nose breather Not an issue if mouth breaths Mouth is dry Headache at present Headache daily Some worse than other Mostly neck Some of it is in the eye Behind the eyes Neck pain temples pain Also lot of low back pain Legs achy Not pain Morning pain Evening no energy If not working 2nd job can barely stay awake Review of Systems Objective Blood Pressure 131/87 Pulse 81 Temperature 36.9 C (98.5 F) (Temporal) Height 165.1 cm (5' 5) Weight 53.5 kg (118 lb) Last Menstrual Period 04/16/2010 Body Mass Index 19.64 kg/m Physical Exam Vitals reviewed. Constitutional: General: She is not in acute distress. Appearance: Normal appearance. She is not ill-appearing or toxic-appearing. Cardiovascular: Rate and Rhythm: Normal rate and regular rhythm. Heart sounds: Normal heart sounds. No murmur heard. No friction rub. No gallop. Pulmonary: Effort: No respiratory distress. Breath sounds: Normal breath sounds. No stridor. No wheezing or rhonchi. Abdominal: General: There is no distension. Palpations: There is no mass. Tenderness: There is no abdominal tenderness. Hernia: No hernia is present. Musculoskeletal: Right shoulder: Normal. Left shoulder: Normal. Right elbow: Normal. Left elbow: Normal. Right wrist: Normal. Left wrist: Normal. Right hand: Normal. Left hand: Normal. Cervical back: No rigidity or tenderness. Thoracic back: Normal. Lumbar back: Normal. Right hip: Normal. Left hip: Normal. Right knee: Normal. Left knee: Normal. Right lower leg: No edema. Left lower leg: No edema. Right ankle: Normal. Left ankle: Normal. Right foot: Normal. Left foot: Normal. Comments: Dip pip enlargement mild Nose normal Throat cobblestoning Lymphadenopathy: Cervical: No cervical adenopathy. Skin: Findings: No rash. Neurological: Mental Status: She is alert. Assessment and Plan First visit Polyarthralgia ( not seen Rheum beofre ) NITHYA 06/14 ESR 2019 ESR 7 mm 07/16 NITHYA 1:80 nuclear SSA SSB RF CCP neg 07/16 IgA, IgG Transglutaminase Ab: neg, IgA (mg/dl): 255 ((Dry eye, seen optha, dry mouth, thinks submandibular swelling at time, photosensitivity) ( hand cold but no Raynaud's Phenomenon, no miscarriages, no DVT ( ( no mucosal ulcers ) ( no serositis ) 07/12/202207/16 tenderness synovitis enthesitis absent, ( dry ness noted could be from med use ) 07/16 labs + clinical assesment not suggestive of any connective tissue disease Drug and disease monitoring 06/14 cbc diff normal wbc 6000 lymph 1610 plt 170 06/14 cmp TSH normal 2015 B12 folic acid normal 08/15 K 3.3 low . Fibromyalgia / Chronic fatique (((( 07/16 :: can sleep /7 ) (never feeling good ) ( Dr. Mascorro ) ( Leg muscle ache, thigh pain, not in the arms ) ( back and shoulder muscle hurt ))))) TT 07/12/2022 see below 07/16 tender point exam is all negative, failed Fibromyalgia med .07/16 10/17 given lyrica by PCP, I think should go on it and taper off topamax. 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 Ankle joint hypermobility is there, patellar hypermobility is there. Skin hyperextensibility is there. Skin scarring normal belly and toe scar, high arch palate ( does not meet ED III criteria )))) Chest heavy (( 07/16 not with chest pains ) ( 5 yr ))) 07/12/2022 thinks with panic attacks 07/12/2022 ( 07/16 exam tenderness absent ) Chronic neck pain ( no jaw pain ) ( 2016 onset )) 12/14 CT CS : The cervical vertebral bodies are in normal alignment without acute fracture or subluxation. The vertebral body heights and disc space heights are maintained. Anterior osteophyte C5 07/16 exam normal exam no tenderness Chronic low back pain (2021 onset ) TT 07/12/2022 Shoulder pain ( from CS, tension ) 07/12/2022 ( no elbow pain ) 07/12/2022 CTS ( NCS done, no surg done, ) using brace at time. 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 ( No right pain ( ( intermittent ) 07/16 hip hypermobility is there, excessive, labrum tear in left hip likely 07/12/2022 ( no knee pain ) ( no ankle pains ) Right foot pain ( no left foot pain Ankle / feet edema Right big toe surg ( using mobic for this ) surg done 2016 ( some initial improvement then symptomsback ) Chronic sinus issue : ( 2018 started with sinus infection, allergies started age 32 ) Sinus pressure Recurrent sinus infection missing work recurrently , goes to urgent care and recurrent use of pred + antibiotic ( 07/16 has been told needs IVIG by ENT ) 07/12/202211/2020 RAST IgE total 14, dust mite Dp class II, dust mite Df Class IV, rageweed class I , ( RAST NE 5 neg, mouse rest ) 12/13 IgA 262, IgA class I 209, IgA class 2 20 , 12/13 IgG 561 low ( <586), IgG1 280, IgG2 153, IgG3 28, IgG4 16 normal . 12/13 IgM 127 normal 12/13 pneumococcal low in serotype : 8/14. 01/12 ( 5 week later ) IgG 580 low ( IgG subclass normal ) ( post vaccination 10/08 low excellent response ) 12/14 CT head : . Regions of the orbits and paranasal sinuses included within the field of view are unremarkable 2015 MRI brain normal (( No hives, no food allergies, no skin issue , no breathing issue, asthma) 07/12/2022 (07/16 nose total akilah, nasal septal thinning + cobblestoning + dental grinding + throat cobblestoning ) TT (( Dust mite cover on pillow not on mattress, OK for mattress ) Kitchen Hand : Dr. Scarlett Mcdermott ( Ying seen ) Couple ENT seen, no better and stopped follow up. 07/12/2022 Singulair 2020 ( no help with sinus issue ) 07/12/202207/16 stop, Accolate 20 mg bid 07/16 (( 10/17no better on Accolate ) 11/13 start singulair Allergra 60 mg OTC prn ( helps ) 07/12/2022 Nasacort ( no help with headache, nose goes dry ) 07/12/2022 Allergan immunotherapy no help 2015 ( used 5 yr no better ) 07/12/202207/16 does not have immunodef, does not need IVIG 07/12/202207/16 need to quit smoking to prev recurrent infection. Think with sinus headache mimicking infections . 07/16 use breath rite strip 07/12/2022 ( sleep precautions ) 07/12/2022 (( Do help but using at home, but do not take headache away )) (( Salt rinse and is no discharged with that ) 08/15 zyrtec d bid 10/17/2022 ( never used it ) ( using zyrtec only ) 10/17 floanse 1 spray alt day ( night time one hour before sleep ) Daily headache (((( 10/17::: long standing 2009 or before ) (headache anabaptism area, sinus area, thengoes to temporal area, around eyes, and then in the occipital area, wakes up with them, day time lets up, morning and night is bad, head is stuffed up with head, nausea no vomit, only if bad light issue, neck throbs )) ) 07/12/2022 Episodic migraines ( 07/12/2022 every few week ) TT Neurology seen testing seen neg for MS 07/12/202210/17 topamax not sure if helping 10/17/2022 10/17/2022 ( bundle up during sleep ) 10/17/2022 ( See if topical vics helps ) 10/17/2022 Anxiety (from med issue ) Hypersomnia ((( 07/16 no sleep study done ) ( no sleep partner ) (( Cold all the time but no Raynaud's Phenomenon , cold life long ) 07/16 sleeps with fan on, blankets + socks 07/12/2022 07/12/2022 ( had to be off depression anxiety med for 6 week and elected not to pursue sleep study) 07/12/2022 not sleeping with fan on 10/17/2022 Colonoscopy 2021 normal , EGD done past normal 07/12/2022 Hysterectomy 2009 partial 07/12/2022 Pain mgt indication Fibromyalgia PT done, last 201707/12/2022 aquatic therapy not done, 07/12/2022 Chiropractor manipulation not done, 07/12/2022 Massage therapy not done, 07/12/2022 Pain management done 2009 seen , injection, epidural, RFNA not done. Tramadol ( 2009 last script ) ( no help with pains ) 07/12/2022 Lyrica used past 07/12/2022 gabapentin used past ( ( side effect were worse )) 07/12/2022 Elavil 2017 used ( does not remember ) ( No use of baclofen, flexeril, zanaflex ) 07/12/2022 Cymbalta 60 2020 started no help with pain ( not helping with anxiety either 0 07/12/2022 Mobic 15 2015 ( for foot pains and helps ) Topamax 50 mg bid 2015 ( not sure if helping with pain, not sure if helping ) (Using topamax 100 mg hs use for headache ) Propranolol 60 once a day ( 2021 started ) ( no help with migraines ) Tylenol 500 mg po prn ( no help with pain ) 07/12/2022 Aleve egde off 07/12/2022 ( 2 at time ) 07/12/2022 Valium 5 mg prn ( sleep ) 08/15 started ( helps, but groggy next day, 2-3 days a week ) 10/17/2022 (also using for panic will use in afternoon 07/12/2022 flexeril 5 mg hs 07/12/2022 Brief Personal and family history: ( 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, 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, 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[employer]) Home moved 2000 build, moved in 2019 ( mold bed room, bathroom, crawl space ) 07/16 Lives alone 07/12/2022 ( son 20 yr old does not live with her ) Age 26 started smoking 08/26 ppd 07/12/2022 Rare ETOH 07/12/2022 THC Vape shop 07/12/2022 ( helps with anxiety ) Financial issue works 2 jobs single parent 07/12/2022 1 brother : no med issue 07/12/2022 One sister : no info 07/12/2022 Mom 78 07/12/2022 ( HTN, atrial fib, recurrent passing out ) 07/12/2022 Father 79 07/12/2022 hyperlipidemia tremor 07/12/2022 During this patient visit I have spent approximately 25 minutes out of 30 in counseling regarding coordinating care and coordinating care. documented in this encounterK[facility]12-19-2022 Miscellaneous Notes* Telephone Encounter - Prerna Queen LPN - 08/12/2022 1:54 PM EST LVMM for the pt asking for call back to discuss Prerna Queen LPN * Telephone Encounter - Yin Parekh MD - 08/12/2022 1:42 PM EST Kirk Martino LPN/ Subhash Solis MA / Karma Matos MA/ Prerna Queen LPN please call her Labs show low K 3.3 Please call patient potassium is borderline low. Add bananas to diet. Increase vegetables, oranges,tomatoes to . Avocado will help also. Dried fruits dates, figs, prunes have high potassium content also nuts. Will check periodically. Yin Parekh MD documented in this encounterK[facility]11-18-2022 Miscellaneous Notes* Telephone Encounter - Alyce Garcia - 07/12/2022 10:21 AM EST 3 month scheduled Sending lab order in the mail. She will get done in [place]. Alyce Garcia * Telephone Encounter - Yin Parekh MD - 07/12/2022 9:03 AM EST See her back in 3 months Labs done today Another labs CMP in one months ( For drug monitoring ) * Telephone Encounter - Alyce Garcia - 07/12/2022 9:00 AM EST The labs that were ordered today she got done while she was here. Are you ordering more for her to get done in a month? When do you want a follow up? Alyce Garcia * Telephone Encounter - Yin Parekh MD - 07/12/2022 8:57 AM EST Please have her get blood test CMP done in one months to make sure accolate is not causing liver issue Yin Parekh MD Please call her Yin Parekh MD documented in this encounterK[facility]11-17-2022 History of Present illness Narrative* Yin Parekh MD - 07/11/2022 8:21 AM EST This note was created using [employer]. Subjective Holden Childers is a 52 year old female. Overall health is not good Multiple med issues Wants to get them addressed Review of Systems Constitutional: Negative for fatigue. Respiratory: Negative. Cardiovascular: Positive for chest pain. Objective Blood Pressure 138/86 (BP Site: Left Arm) Pulse 72 Temperature 36.7 C (98 F) (Temporal) Height 165.1 cm (5' 5) Weight 52.2 kg (115 lb) Last Menstrual Period 04/16/2010 Body Mass Index 19.14 kg/m Physical Exam Vitals reviewed. Constitutional: General: She is not in acute distress. Appearance: Normal appearance. She is not ill-appearing or toxic-appearing. HENT: Right Ear: There is no impacted cerumen. Left Ear: There is no impacted cerumen. Nose: No congestion or rhinorrhea. Eyes: General: Right eye: No discharge. Left eye: No discharge. Cardiovascular: Rate and Rhythm: Normal rate and regular rhythm. Heart sounds: Normal heart sounds. No murmur heard. No friction rub. No gallop. Pulmonary: Effort: No respiratory distress. Breath sounds: No stridor. No wheezing or rhonchi. Abdominal: General: There is no distension. Palpations: Abdomen is soft. There is no mass. Tenderness: There is no abdominal tenderness. Hernia: No hernia is present. Musculoskeletal: Right shoulder: Normal. Left shoulder: Normal. Right elbow: Normal. Left elbow: Normal. Right wrist: Normal. Left wrist: Normal. Right hand: Normal. Left hand: Normal. Cervical back: No rigidity or tenderness. Thoracic back: Normal. Lumbar back: Normal. Right hip: Normal. Left hip: Normal. Right knee: Normal. Left knee: Normal. Right ankle: Normal. Left ankle: Normal. Right foot: Normal. Left foot: Normal. Comments: Please see note for exam clarification and details. Lymphadenopathy: Cervical: No cervical adenopathy. Skin: Findings: No rash. Neurological: Mental Status: She is alert. Assessment and Plan First visit 07/12/2022 7.25 Polyarthralgia ( not seen Rheum ) 06/14 ESR 2019 ESR 7 mm ((Dry eye, seen optha, dry mouth, thinks submandibular swelling at time, photosensitivity) ( hand cold but no Raynaud's Phenomenon, no miscarriages, no DVT ( ( no mucosal ulcers ) ( no serositis ) 07/12/202207/16 tenderness synovitis enthesitis absent, Drug and disease monitoring 10/21 cbc diff normal wbc 6000 lymph 1610 plt 170 06/14 cmp TSH normal 2015 B12 folic acid normal Fibromyalgia / Chronic fatique ( can sleep 17/03 ) (never feeling good ) ( Dr. Mascorro ) ( Leg muscle ache, thigh pain, not in the arms ) ( back and shoulder muscle hurt )07/12/2022 TT 07/12/2022 see below 07/16 tender point exam is all negative, failed Fibromyalgia med .aaj Benign Hypermobility Syndrome ? 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 Ankle joint hypermobility is there, patellar hypermobility is there. Skin hyperextensibility is there. Skin scarring normal belly and toe scar, high arch palate ( does not meet ED III criteria ) Chest heavy not with chest pains ) ( 5 yr ) 07/12/2022 thinks with panic attacks 07/12/2022 ( 07/16 exam tenderness absent ) Chronic neck pain ( no jaw pain ) ( 2015 onset 0 12/14 CT CS : The cervical vertebral bodies are in normal alignment without acute fracture or subluxation. The vertebral body heights and disc space heights are maintained. Anterior osteophyte C5 07/16 exam normal exam no tenderness Chronic low back pain (2021 onset ) TT 07/12/2022 Shoulder pain ( from CS, tension ) 07/12/2022 ( no elbow pain ) 07/12/2022 CTS ( NCS done, no surg done, ) using brace at time. 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 ( No right pain ( ( intermittent ) 07/16 hip hypermobility is there, excessive, labrum tear in left hip likely 07/12/2022 ( no knee pain ) ( no ankle pains ) Right foot pain ( no left foot pain Ankle / feet edema Right big toe surg ( using mobic for this ) surg done 2016 ( some initial improvement then symptomsback ) Chronic sinus issue : ( 2018 started with sinus infection, allergies started age 32 ) Sinus pressure Recurrent sinus infection missing work recurrently , goes to urgent care and recurrent use of pred + antibiotic ( 07/16 has been told needs IVIG by ENT ) 07/12/202211/2020 RAST IgE total 14, dust mite Dp class II, dust mite Df Class IV, rageweed class I , ( RAST NE 5 neg, mouse rest ) 12/13 IgA 262, IgA class I 209, IgA class 2 20 , 12/13 IgG 561 low ( <586), IgG1 280, IgG2 153, IgG3 28, IgG4 16 normal . 12/13 IgM 127 normal 12/13 pneumococcal low in serotype : 04/07. 01/12 ( 5 week later ) IgG 580 low ( IgG subclass normal ) ( post vaccination 10/08 low excellent response ) 12/14 CT head : . Regions of the orbits and paranasal sinuses included within the field of view are unremarkable 2015 MRI brain normal (( No hives, no food allergies, no skin issue , no breathing issue, asthma) 07/12/2022 (07/16 nose total akilah, nasal septal thinning + cobblestoning ) TT Kitchen Hand : Dr. Scarlett Mcdermott ( [place] seen ) Couple ENT seen, no better and stopped follow up. 07/12/2022 Singulair 2019 ( no help with sinus issue ) 07/12/202207/16 stop, Accolate 20 mg bid Allergra 60 mg OTC prn ( helps ) 07/12/2022 Nasacort ( no help with headache, nose goes dry ) 07/12/2022 No use of breath rite strips 07/12/2022 Allergan immunotherapy no help 2015 ( used 5 yr no better ) 07/12/202207/16 does not have immunodef, does not need IVIG 07/12/202207/16 need to quit smoking to prev recurrent infection. Think with sinus headache mimicking infections . 07/16 use breath rite strip 07/12/2022 ( sleep precautions ) 07/12/2022 Daily headache ( long standing 2009 or before ) (headache anabaptism area, sinus area, then goes to temporal area, around eyes, and then in the occipital area, wakes up with them, day time lets up, morning and night is bad, head is stuffed up with head, nausea no vomit, only if bad light issue, neck throbs ) 07/12/2022 Episodic migraines ( 07/12/2022 every few week ) TT Neurology seen testing seen neg for MS 07/12/2022 Anxiety (from med issue ) Hypersomnia ( no sleep study done ) 07/16 sleeps with fan on, blankets + socks 07/12/2022 07/12/2022 ( had to be off depression anxiety med for 6 week and elected not to pursue ) 07/12/2022 Colonoscopy 2021 normal , EGD done past normal 07/12/2022 Hysterectomy 2009 partial 07/12/2022 Pain mgt indication Fibromyalgia PT done, last 2018 07/12/2022 aquatic therapy not done, 07/12/2022 Chiropractor manipulation not done, 07/12/2022 Massage therapy not done, 07/12/2022 Pain management done 2009 seen , injection, epidural, RFNA not done. Tramadol ( 2009 last script ) ( no help with pains ) 07/12/2022 Lyrica used past 07/12/2022 gabapentin used past 07/12/2022 Elavil 2017 used ( does not remember ) ( No use of baclofen, flexeril, zanaflex ) 07/12/2022 Cymbalta 60 2020 started no help with pain ( not helping with anxiety either 0 07/12/2022 Mobic 15 2015 ( for foot pains and helps ) Topamax 50 mg bid 2015 ( not sure if helping with pain, not sure if helping ) Propranolol 60 once a day ( 2021 started ) ( no help with migraines ) Tylenol 500 mg po prn ( no help with pain ) 07/12/2022 Aleve egde off 07/12/2022 ( 2 at time ) 07/12/2022 07/12/2022 flexeril 5 mg hs 07/12/2022 Brief Personal and family history: ( 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, 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, 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 ) Home moved 2000 build, moved in 2019 ( mold bed room, bathroom, crawl space ) Lives alone 07/12/2022 ( son 20 yr old does not live with her ) Age 26 started smoking 1/2 ppd 07/12/2022 Rare ETOH 07/12/2022 THC Vape shop 07/12/2022 ( helps with anxiety ) Financial issue works 2 jobs single parent 07/12/2022 1 brother : no med issue 07/12/2022 One sister : no info 07/12/2022 Mom 78 07/12/2022 ( HTN, atrial fib, recurrent passing out ) 07/12/2022 Father 79 07/12/2022 hyperlipidemia tremor 07/12/2022 During this patient visit I have spent approximately 40 minutes out of 60 in counseling regarding coordinating care and coordinating care. documented in this encounterK[facility]Evaluchrist[facility] noteNo assessment information availableSoleonard morse hospital Physician ServicesEvaluation note* Diagnosis Fibromyalgia- Primary Mylagia and myositis, unspecified Seasonal allergic rhinitis due to pollen Chronic neck and back pain documented [facility] this [facility]* Diagnosis Fibromyalgia- Primary Mylagia and myositis, unspecified Seasonal allergic rhinitis due to pollen Sinus headache Headache documented [facility]* Diagnosis Chronic neck and back pain [facility]* Diagnosis Tobacco use disorder- Primary Sleep disorder Sleep disturbance, unspecified documented [facility]* Diagnosis Bladder wall thickening [N32.89]- Primary Other specified disorders of bladder 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, sequela Recurrent UTI Urinary tract infection, site not specified Urgency of urination documented [facility] this [facility]* Diagnosis Tobacco use disorder [facility]* Diagnosis ABBY (obstructive sleep apnea)- Primary Obstructive sleep apnea (adult) (pediatric) documented [facility]* Diagnosis Encounter for screening for lung cancer- Primary Tobacco use disorder Tobacco use current documented [facility]* Diagnosis Bladder wall thickening [N32.89]- Primary Other specified disorders of bladder 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, sequela Recurrent UTI Urinary tract infection, site not specified Urgency of urination documented [facility] this [facility]* Diagnosis Tobacco use current- Primary [facility]* Diagnosis ABBY (obstructive sleep apnea) Obstructive sleep apnea (adult) (pediatric) documented in this encounter [facility] note* Diagnosis Procedure not carried out- Primary Procedure not carried out for other reasons documented in this encounter [facility] note* Diagnosis Sensorineural hearing loss (SNHL) of both ears- Primary Dizziness and giddiness Dysfunction of both eustachian tubes Dysfunction of Eustachian tube documented [facility] this [facility]* Diagnosis Chronic sinusitis, unspecified location- Primary Ear fullness, bilateral documented in this encounter [facility]* Diagnosis At risk for narcolepsy- Primary Daytime sleepiness Tobacco use disorder documented in this encounter [facility]* Diagnosis Chronic sinusitis, unspecified location documented in this encounter [facility]* Diagnosis Facial pain- Primary Headache Headache disorder Headache Other fatigue documented in this encounter [facility]* Diagnosis Tobacco use current [facility] Diagnosis Intractable migraine without aura and without status migrainosus- Primary Migraine without aura, with intractable migraine, so stated, without mention of status migrainosus Facial pain Headache Headache disorder Headache Cervicalgia documented in this encounter [facility]* Diagnosis At risk for narcolepsy [facility]* Diagnosis Intractable chronic migraine without aura and without status migrainosus- Primary Chronic migraine without aura, with intractable migraine, so stated, without mention of status migrainosus documented in this encounter [facility]* Diagnosis Hypersomnia Hypersomnia, unspecified [facility]* Diagnosis Hypersomnia- Primary Hypersomnia, unspecified documented [facility] this [facility]* Diagnosis Acute left-sided low back pain with left-sided sciatica documented [facility] Narrative No data available for this section [facility] Hospital Discharge instructionsNo known hospital discharge instructions.[facility] Hospital Discharge instructions* Additional Discharge Instructions If the symptoms worsen or new symptoms develop return to the Emergency Department (ED) immediately. Call your doctor for additional questions. Instruction/Education Provided DI for Vi ral Upper Respiratory Infection -- Adult DI for Nasal Congestion [facility] Hospital Discharge instructions Additional Instructions Follow-up with your PCP and return for any worsening symptoms.[facility] Work Phone: Hospital Discharge instructionsAmbulatory Orders* Physical Therapy Referral Location: None Selected * Orthopedics Location: None Selected [facility] Work Phone: Reason for referral (narrative)* Diagnostic Procedure Only (Routine) - Authorized Specialty Diagnoses / Procedures Referred By Hilario park Referred To Contact NEUROLOGICAL EARLY Diagnoses Tobacco use disorder Procedures HOME SLEEP APNEA TEST (HSAT) SLEEP STD AIRFLOW HRT RATE&O2 SAT EFFORT Yusuf Pond MD [address] [place] [address] [facility] [address] [place] [address] Referral ID Status Reason Start Date Expiration Date Visits Requested Visits Authorized [id number] Authorized Auto-Generat ed Referral 12/18/2023 12/17/2024 1 1 [facility] for referral (narrative)* Diagnostic Procedure Only (Routine) - Pending Review Specialty Diagnoses / Procedures Referred By Hilario park Referred To Contact [facility] Diagnoses At risk for narcolepsy Procedures MULTIPLE SLEEP LATENCY 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 LATENCY/MAINT OF WAKEFULNESS TSTG Iris Gonzalez PA-C [address] [place] [address] [facility] [address] [place] [address] Referral ID Status Reason Start Date Expiration Date Visits Requested Visits Authorized [id number] Pending Review Auto-Generat ed Referral 04/08/2024 04/08/2025 1 1 [facility] for referral (narrative)No reason for referral information [facility] Work Phone: Reason for visit Narrative* Diagnostic Procedure Only (Routine) - Closed Specialty Diagnoses / Procedures Referred By Contac t Referred To Contact NEUROLOGICAL EARLY Diagnoses Tobacco use disorder Procedures HOME SLEEP APNEA TEST (HSAT) SLEEP STD AIRFLOW HRT RATE&O2 SAT EFFORT Yusuf Pond MD [address] [place] [address] [facility] [place] [address] [place] [address] Referral ID Status Reason Start Date Expiration Date V isits Requested Visits Authorized [id number] Closed Auto-Generate d Referral 12/18/2023 12/17/2024 1 1 [facility] Course Discharge Summary No Discharge Summary Informa tion Discharge Instructions Discharge Instructions No Discharge Instructions Summary Purpose Family History No Family History Records Found Relationship Condition Age at Onset Recorded Date/T chloé father Angina at rest Unknown Myocardial infarction 70 High blood cholesterol Unknown mother History of blood transfusion Unknown Anxiety Unknown Hypertension Unknown aunt Malignant neoplasm Unknown grandfather Myocardial infarction 70 sister Asthma Unknown Advance Directives No Advanced Directives Records FoundDocuments on File Type Date Recorded 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 Advance Directives and Living Will Power of Charger Operator Helper Advance Directive Response Recorded Date/ Time Advance Directives No January 03 7 8:05am Advance Directive Response Recorded Date/ Time Declaration for Mental Health Treatment No December 10, 2021 10:21pm Advance Directive Response Recorded Date/ Time Advance Directives No July 30 022 4:15pm Declaration for Mental Health Treatment No December 10, 2021 10:21pm Durable Power Of Charger Operator Helper No Decemb er 2021 4:15pm Living Will No July 30, 2022 4:15pm Advance Directive Response Recorded Date/ Time Advance Directives No July 08, 2023 4:30pm Durable Power Of Charger Operator Helper No Novemb er 2022 4:30pm Living Will No July 08 4:30pm Advance Directive Response Recorded Date/ Time Living Will No November 28, 2024 5:24pm Do you have a Healthcare Power of Charger Operator Helper? No November 28, 2024 5:24pm Date Activated Date Inactivated Comments 07/16/2024 9:02 PM 07/21/2024 6:09 PM Question Answer Comments Full Code Order Discussed With: Patient Assessments Diagnosis Nonintractable headache, unspecified chronicity pattern, unspecified headache type Fibromyalgia Mylagia and myositis, unspecified Reactive depression Dysthymic disorder Chief Complaint and Reason for Visit Chief Complaint Hemorrhoids Encounter Admit Date Chief Complaint Reason for V isit Discharged Recurring November 19, 2023 7:14am STENT //2 4 Chief Complaint Admit Date PE NON DOT DRUG SCREEN/ [facility] October 15, 2024 10:07am CONCERN FOR SHINGLES ON BACK November 15, 2024 2:16pm chest pain November 28, 2024 5:04 pm Reason for Visit Admit Date Shingles November 15, 2024 2:1 6pm Chief Complaint Admit Date PE NON DOT DRUG SCREEN/ [facility] October 15, 2024 10:07am CONCERN FOR SHINGLES ON BACK November 15, 2024 2:16pm chest pain November 28, 2024 5:04 pm yearly/med refills December 10, 2024 7:2 6am Reason for Visit Admit Date Shingles November 15, 2024 2:1 6pm Fatigue December 10, 2024 7:2 6am Anxiety and depression December 10, 2024 7:26am CAD (coronary artery disease) November 7:26am Fibromyalgia December 10, 2024 7:2 6am Chief Complaint Admit Date PE NON DOT DRUG SCREEN/ [facility] October 15, 2024 10:07am CONCERN FOR SHINGLES ON BACK November 15, 2024 2:16pm chest pain November 28, 2024 5:04 pm yearly/med refills December 10, 2024 7:2 6am 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 19, 2025 8:44a m Chief Complaint Admit Date PE NON DOT DRUG SCREEN/ [facility] October 15, 2024 10:07am CONCERN FOR SHINGLES ON BACK November 15, 2024 2:16pm chest pain November 28, 2024 5:04 pm yearly/med refills December 10, 2024 7:2 6am 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 19, 2025 8:44a m ACUTE LOWER BACK PAIN February 10, 2025 12 :16pm Reason for Visit Admit Date Shingles November 15, 2024 2:1 6pm Fatigue December 10, 2024 7:2 6am Anxiety and depression December 10, 2024 7:26am CAD (coronary artery disease) November 7:26am Fibromyalgia December 10, 2024 7:2 6am Anxiety and depression January 19, 2025 8: 44am Atrophic vaginitis January 19, 2025 8:44a m Routine gynecological examination January 192024 8:44am Chronic low back pain February 10, 2025 12 :16pm Reason for Referral Specialty Diagnoses / Procedures Referred By Contac t Referred To Contact Diagnoses Facial pain Headache disorder Procedures CONSULT TO HEADACHE CLINIC OFFICE/OUTPATIENT [facility] 60 MINUTES Anthony Nichols MD [address] [id number] Referral ID Status Reason Start Date Expiration Date Visits Requested Visits Authorized [id number] Authorized PCP Requested Referral 04/16/2024 04/16/2025 1 1 Specialty Diagnoses / Procedures Referred By Contac t Referred To Contact CT IMAGING Diagnoses Chronic sinusitis, unspecified location Procedures CT SINUS WO IVCON CT MAXILLOFACIAL W/O CONTRAST MATERIAL Gely Gottlieb PA [address] [place] [address] [address] [facility] [address] [address] Referral ID Status Reason Start Date Expiration Date Visits Requested Visits Authorized [id number] Additional Clinical Info Needed Auto-Generat ed Referral 03/30/2024 04/29/2025 1 1 Specialty Diagnoses / Procedures Referred By Contac t Referred To Contact Procedures HEARING TEST/AUDIOGRAM COMPRE AUDIOMETRY THRESHOLD EVAL SP Elizabeth Lawson, AuD, CCC-A [address] [place] [address] [facility] [address] [place] [address] Referral ID Status Reason Start Date Expiration Date Visits Requested Visits Authorized [id number] New Request Auto-Generat ed Referral 03/30/2024 03/31/2025 1 1 Specialty Diagnoses / Procedures Referred By Contac t Referred To Contact CT IMAGING Diagnoses Tobacco use current Procedures CT LUNG SCREEN WO IVCON COMPUTED TOMOGRAPHY THORAX LW DOSE LNG CA SCR C- [place], Araseli, SENIOR DESIGNER/ART DIRECTOR.DIRECTOR PRODUCT [id number] [place] [address] Referral ID Status Reason Start Date Expiration Date Visits Requested Visits Authorized [id number] Additional Clinical Info Needed Auto-Generat ed Referral 01/23/2024 02/21/2025 1 1 Additional Source Comments INFORMATION SOURCE (unrecogn ized section and content) DATE CREATED AUTHOR 05/13/2019 [facility] DATE CREATED AUTHOR AUTHOR'S ORGANIZ ATION 10/14/2019 [facility] DATE CREATED AUTHOR AUTHOR'S ORGANIZ ATION 10/07/2021 [facility] ([place]) DATE CREATED AUTHOR AUTHOR'S ORGANIZ ATION 11/05/2023 [facility] DATE CREATED AUTHOR AUTHOR'S ORGANIZ ATION 11/16/2023 [facility] DATE CREATED AUTHOR AUTHOR'S ORGANIZ ATION 04/02/2024 [facility] ([place]) DATE CREATED AUTHOR AUTHOR'S ORGANIZ ATION 06/10/2024 [facility] DATE CREATED AUTHOR AUTHOR'S ORGANIZ ATION 08/03/2024 [facility] DATE CREATED AUTHOR AUTHOR'S ORGANIZ ATION 08/20/2024 [facility] DATE CREATED AUTHOR AUTHOR'S ORGANIZ ATION 12/06/2024 [facility] DATE CREATED AUTHOR AUTHOR'S ORGANIZ ATION 12/15/2024 [facility] DATE CREATED AUTHOR AUTHOR'S ORGANIZ ATION 01/22/2025 [facility] DATE CREATED AUTHOR AUTHOR'S ORGANIZ ATION 02/10/2025 [facility] Goals (unrecognized section and content) Goals may be documented in a n alternate section No data available for this section No data available for this sectionGoals may be documented in an alternate sectionGoals may be documented in an alternate sectionGoals may be documented in an alternate sectionGoals may be documented in an alternate section Source Comments (unrecognize d section and content) In the event this informatio n is protected by the Federal Confidentiality of Alcohol and Drug Abuse Patient Records regulations: The Federal rules restrict any use of the information to criminally investigate or prosecute any alcohol or drug abuse patient.[facility] the event this information is protected by the Federal Confidentiality of Alcohol and Drug Abuse Patient Records regulations: The Federal rules restrict any use of the information to criminally investigate or prosecute any alcohol or drug abuse patient.[facility] Memorial[facility] the event this information is protected by the Federal Confidentiality of Alcohol and Drug Abuse Patient Records regulations: The Federal rules restrict any use of the information to criminally investigate or prosecute any alcohol or drug abuse patient.[facility] Memorial[facility] the event this information is protected by the Federal Confidentiality of Alcohol and Drug Abuse Patient Records regulations: The Federal rules restrict any use of the information to criminally investigate or prosecute any alcohol or drug abuse patient.[facility] Memorial[facility] the event this information is protected by the Federal Confidentiality of Alcohol and Drug Abuse Patient Records regulations: The Federal rules restrict any use of the information to criminally investigate or prosecute any alcohol or drug abuse patient.[facility] Memorial[facility] the event this information is protected by the Federal Confidentiality of Alcohol and Drug Abuse Patient Records regulations: The Federal rules restrict any use of the information to criminally investigate or prosecute any alcohol or drug abuse patient.[facility] Memorial[facility] the event this information is protected by the Federal Confidentiality of Alcohol and Drug Abuse Patient Records regulations: The Federal rules restrict any use of the information to criminally investigate or prosecute any alcohol or drug abuse patient.[facility] Memorial[facility] the event this information is protected by the Federal Confidentiality of Alcohol and Drug Abuse Patient Records regulations: The Federal rules restrict any use of the information to criminally investigate or prosecute any alcohol or drug abuse patient.[facility] Memorial[facility] the event this information is protected by the Federal Confidentiality of Alcohol and Drug Abuse Patient Records regulations: The Federal rules restrict any use of the information to criminally investigate or prosecute any alcohol or drug abuse patient.[facility] Memorial[facility] the event this information is protected by the Federal Confidentiality of Alcohol and Drug Abuse Patient Records regulations: The Federal rules restrict any use of the information to criminally investigate or prosecute any alcohol or drug abuse patient.[facility] Memorial[facility] the event this information is protected by the Federal Confidentiality of Alcohol and Drug Abuse Patient Records regulations: The Federal rules restrict any use of the information to criminally investigate or prosecute any alcohol or drug abuse patient.[facility] Memorial[facility] the event this information is protected by the Federal Confidentiality of Alcohol and Drug Abuse Patient Records regulations: The Federal rules restrict any use of the information to criminally investigate or prosecute any alcohol or drug abuse patient.[facility] Memorial[facility] the event this information is protected by the Federal Confidentiality of Alcohol and Drug Abuse Patient Records regulations: The Federal rules restrict any use of the information to criminally investigate or prosecute any alcohol or drug abuse patient.[facility] Memorial[facility] the event this information is protected by the Federal Confidentiality of Alcohol and Drug Abuse Patient Records regulations: The Federal rules restrict any use of the information to criminally investigate or prosecute any alcohol or drug abuse patient.[facility] Memorial[facility] the event this information is protected by the Federal Confidentiality of Alcohol and Drug Abuse Patient Records regulations: The Federal rules restrict any use of the information to criminally investigate or prosecute any alcohol or drug abuse patient.[facility] Memorial[facility] the event this information is protected by the Federal Confidentiality of Alcohol and Drug Abuse Patient Records regulations: The Federal rules restrict any use of the information to criminally investigate or prosecute any alcohol or drug abuse patient.[facility] MemorialIn the event this information is protected by the Federal Confidentiality of Alcohol and Drug Abuse Patient Records regulations: The Federal rules restrict any use of the information to criminally investigate or prosecute any alcohol or drug abuse patient.[facility] MemorialIn the event this information is protected by the Federal Confidentiality of Alcohol and Drug Abuse Patient Records regulations: The Federal rules restrict any use of the information to criminally investigate or prosecute any alcohol or drug abuse patient.[facility] Memorial[facility] the event this information is protected by the Federal Confidentiality of Alcohol and Drug Abuse Patient Records regulations: The Federal rules restrict any use of the information to criminally investigate or prosecute any alcohol or drug abuse patient.[facility] Memorial[facility] the event this information is protected by the Federal Confidentiality of Alcohol and Drug Abuse Patient Records regulations: The Federal rules restrict any use of the information to criminally investigate or prosecute any alcohol or drug abuse patient.[facility] Memorial[facility] the event this information is protected by the Federal Confidentiality of Alcohol and Drug Abuse Patient Records regulations: The Federal rules restrict any use of the information to criminally investigate or prosecute any alcohol or drug abuse patient.[facility] MemorialIn the event this information is protected by the Federal Confidentiality of Alcohol and Drug Abuse Patient Records regulations: The Federal rules restrict any use of the information to criminally investigate or prosecute any alcohol or drug abuse patient.[facility] Memorial[facility] the event this information is protected by the Federal Confidentiality of Alcohol and Drug Abuse Patient Records regulations: The Federal rules restrict any use of the information to criminally investigate or prosecute any alcohol or drug abuse patient.[facility] MemorialIn the event this information is protected by the Federal Confidentiality of Alcohol and Drug Abuse Patient Records regulations: The Federal rules restrict any use of the information to criminally investigate or prosecute any alcohol or drug abuse patient.[facility] MemorialIn the event this information is protected by the Federal Confidentiality of Alcohol and Drug Abuse Patient Records regulations: The Federal rules restrict any use of the information to criminally investigate or prosecute any alcohol or drug abuse patient.[facility] Memorial[facility] the event this information is protected by the Federal Confidentiality of Alcohol and Drug Abuse Patient Records regulations: The Federal rules restrict any use of the information to criminally investigate or prosecute any alcohol or drug abuse patient.[facility] Memorial[facility] the event this information is protected by the Federal Confidentiality of Alcohol and Drug Abuse Patient Records regulations: The Federal rules restrict any use of the information to criminally investigate or prosecute any alcohol or drug abuse patient.[facility] Memorial[facility] the event this information is protected by the Federal Confidentiality of Alcohol and Drug Abuse Patient Records regulations: The Federal rules restrict any use of the information to criminally investigate or prosecute any alcohol or drug abuse patient.[facility] MemorialIn the event this information is protected by the Federal Confidentiality of Alcohol and Drug Abuse Patient Records regulations: The Federal rules restrict any use of the information to criminally investigate or prosecute any alcohol or drug abuse patient.[facility] Memorial[facility] the event this information is protected by the Federal Confidentiality of Alcohol and Drug Abuse Patient Records regulations: The Federal rules restrict any use of the information to criminally investigate or prosecute any alcohol or drug abuse patient.[facility] MemorialIn the event this information is protected by the Federal Confidentiality of Alcohol and Drug Abuse Patient Records regulations: The Federal rules restrict any use of the information to criminally investigate or prosecute any alcohol or drug abuse patient.[facility] MemorialIn the event this information is protected by the Federal Confidentiality of Alcohol and Drug Abuse Patient Records regulations: The Federal rules restrict any use of the information to criminally investigate or prosecute any alcohol or drug abuse patient.[facility] Reason for Visit (unrecogniz ed section and content) Specialty Diagnoses / Procedures Referred By Hilario park Referred To Contact Allergy / RHEUMATOLOGY Diagnoses New pt/ fibromyalgia---dmk Procedures OFFICE/OUTPATIENT ESTABLISHED MOD MDM 30-39 MIN NEW PATIENT Bautista Manzano [address] [place] [address] Yin Parekh MD [address] [address] Referral ID Status Reason Start Date Expiration Date Visits Requested Visits Authorized [id number] Authorized OON/Self Pay Override 08/25/2021 08/24/2022 20 20 Reason Comments Patient Update Need labs in one mon ths Reason Comments Patient Update Low potassium Reason Comments Joint Pain And muscle pain Fatigue Reason Comments Refill Request Reason Comments Appointment Reason Comments Sleep Apnea States never feels r ested, hard time staying asleep Reason Comments Consult bladder wall thickening New patient here for bladder WALL thickening. CT done Reason Comments Results Reason Onset Date Comments Results 01/08/2024 PSG Reason Comments Cystoscopy-1 Specialty Diagnoses / Procedures Referred By Hilario park Referred To Contact Urology / UROLOGY Diagnoses Dysplasia of cervix cysto Procedures CYSTOURETHROSCOPY CYSTOSCOPY Thu Boss MD [address] [place] [address] Thu Boss MD [address] [place] [address] Referral ID Status Reason Start Date Expiration Date Visits Re quested Visits Authorized [id number] Closed 02/09/2024 08/24/2024 1 1 Specialty Diagnoses / Procedures Referred By Hilario park Referred To Contact Neurology / SLEEP DISORDERS Diagnoses ABBY (obstructive sleep apnea) PSG - EXPEDITE RESULTS PER BEVERLY Procedures POLYSOM 6/>YRS SLEEP 4/> ADDL JESSICA ATTND PSG SIMPLE Rosemarie Sanabria SENIOR DESIGNER/ART DIRECTOR.DIRECTOR PRODUCT [address] [place] [address] [address] [place] [address] Referral ID Status Reason Start Date Expiration Date Visits Re quested Visits Authorized [id number] Closed 03/09/2024 08/24/2024 1 1 Reason Comments Sinus Problem Sinus congestion, SO B x1 day, chest tightness Reason Comments Follow Up Follow up - bad sinu s pressure - ear pressure Reason Comments Sleep Apnea Specialty Diagnoses / Procedures Referred By Hilario park Referred To Contact Pulmonary Disease / PULMONARY MEDICINE Diagnoses Encounter for screening for lung cancer 3 month Follow Up / HSAT * prev. Al-[facility]ate[facility] patient Procedures OFFICE/OUTPATIENT ESTABLISHED MOD MDM 30 MIN RI NEW GENERAL Self Sid Anderson MD [address] [place] [address] Referral ID Status Reason Start Date Expiration Date Visits Re quested Visits Authorized [id number] Closed 03/11/2024 08/24/2024 [address] Specialty Diagnoses / Procedures Referred By Hilario park Referred To Contact CT IMAGING Diagnoses Chronic sinusitis, unspecified location Procedures CT SINUS WO IVCON CT MAXILLOFACIAL W/O CONTRAST MATERIAL Gely Gottlieb PA [address] [place] [address] Ct [facility] [place] [address] Referral ID Status Reason Start Date Expiration Date V isits Requested Visits Authorized [id number] Closed Auto-Generate d Referral 03/31/2024 08/24/2024 1 1 Reason Comments Sinus Problem Specialty Diagnoses / Procedures Referred By Hilario park Referred To Contact CT IMAGING Diagnoses Tobacco use current Procedures CT LUNG SCREEN WO IVCON COMPUTED TOMOGRAPHY THORAX LW DOSE LNG CA SCR Luan- Araseli Markham APRN.DIRECTOR PRODUCT [address] [place] [address] [place] [address] Referral ID Status Reason Start Date Expiration Date V isits Requested Visits Authorized [id number] Closed Auto-Generate d Referral 01/28/2024 08/24/2024 1 1 Reason Comments New Patient Headaches Specialty Diagnoses / Procedures Referred By Contac t Referred To Contact Diagnoses Facial pain Headache disorder Procedures CONSULT TO HEADACHE CLINIC OFFICE/OUTPATIENT NEW HIGH MDM 60 MINUTES Anthony Nichols MD [address] [place] [address] Referral ID Status Reason Start Date Expiration Date V isits Requested Visits Authorized [id number] Closed PCP Requested Referral 04/16/2024 04/16/2025 1 1 Reason Comments Apnea Specialty Diagnoses / Procedures Referred By Contac t Referred To Contact SLEEP DISORDERS Diagnoses Narcolepsy Procedures POLYSOM 6/>YRS SLEEP 4/> ADDL JESSICA ATTIris Keene, PA-C [address] [place] [address] Sleep Lab [facility] [address] [address] Referral ID Status Reason Start Date Expiration Date Visits Re quested Visits Authorized [id number] Closed 05/13/2024 08/24/2024 1 1 Reason Comments Orders Patient did not comp lete PSG and MSLT. She left in the middle of the night. Can you place new order for PSG so that I can reschedule her? Thank you Reason Comments Botox Injection Specialty Diagnoses / Procedures Referred By Contac t Referred To Contact NEUROMUSCULAR Diagnoses Migraine without aura, intractable, without status migrainosus Procedures BOTULINUM TOXIN A PER 1 UNIT CHEMODERVATE FACIAL/TRIGEM/CERV MUSC MIGRAINE Dimare, Radha, SENIOR DESIGNER/ART DIRECTOR.DIRECTOR PRODUCT [address] [place] [address] Neur [facility] [address] [place] [address] Referral ID Status Reason Start Date Expiration Date V isits Requested Visits Authorized [id number] Authorized 05/14/2024 05/13/2025 4 4 Specialty Diagnoses / Procedures Referred By Contac t Referred To Contact Neurology / SLEEP DISORDERS Diagnoses Hypersomnia dr pena 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 SLEEP LATENCY/MAINT OF WAKEFULNESS TSTG POLYSOM 6/>YRS SLEEP 4/> ADDL JESSICA ATTND PSG WITH MSLT Prnaav Pena MD [address] [place] [address] [facility] [address] [place] [address] Referral ID Status Reason Start Date Expiration Date V isits Requested Visits Authorized [id number] Authorized 07/05/2024 08/24/2024 2 2 Reason Comments Sleep Problem Specialty Diagnoses / Procedures [facility] Referred To Contact Neurology / SLEEP DISORDERS Diagnoses Hypersomnia dr pena 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 SLEEP LATENCY/MAINT OF WAKEFULNESS TSTG POLYSOM 6/>YRS SLEEP 4/> ADDL JESSICA ATTND PSG WITH MSLT Pranav Pena MD [address] [place] [address] [facility] [address] [place] [address] Referral ID Status Reason Start Date Expiration Date Visits Re quested Visits Authorized [id number] Closed 07/05/2024 08/24/2024 2 2 Reason Comments Pain Left lower back pain , radiating into hip and Left leg x 2 weeks Care Teams (unrecognized sec tion and content) 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 [employer] Relationship Specialty Start Date End Date Bautista Manzano [address] [place], [place] [address] [address] PCP - General Internal Medicine 11/04/13 Supervisor [employer] Relationship Specialty Start Date End Date Bautista Manzano [address] [place] [address] [place] [address] PCP - General Internal Medicine 11/04/13 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 [employer] Relationship Specialty Start Date End Date Bautista Manzano [address] [place] [address] [place] [address] PCP - General Internal Medicine 11/04/13 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 [employer] Relationship Specialty Start Date End Date Ventura Manzanorosa ManzanaresUlises [address] [place] [address] PCP - General Internal Medicine 11/04/13 Supervisor [employer] Relationship Specialty Start Date End Date Bautista Manzano [address] [place] [address] PCP - General Internal Medicine 11/04/13 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 [employer] Relationship Specialty Start Date End Date Bautista Manzano [address] [place] [address] PCP - General Internal Medicine 11/04/13 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 [employer] Relationship Specialty Start Date End Date Bautista Manzano [address] [place] [address] PCP - General Internal Medicine 11/04/13 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 [employer] Relationship Specialty Start Date End Date Bautista Manzano [address] [place] [address] PCP - General Internal Medicine 11/04/13 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 [employer] Relationship Specialty Start Date End Date Bautista Manzano [address] [place] [address] PCP - General Internal Medicine 11/04/13 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 [employer] Relationship Specialty Start Date End Date Bautista Manzano [address] [place] [address] PCP - General Internal Medicine 11/04/13 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 [employer] Relationship Specialty Start Date End Date Bautista Manzano [address] [place] [address] PCP - General Internal Medicine 11/04/13 Supervisor [employer] Treatment [employer] Relationship Specialty Start Date End Date PatoBautista edwards [address] [place] [address] PCP - General Internal Medicine 11/04/13 Supervisor [employer] Relationship Specialty Start Date End Date PatoBautista edwards [address] [place] [address] PCP - General Internal Medicine 11/04/13 Supervisor [employer] Relationship Specialty Start Date End Date PatoBautista edwards [address] [place] [address] PCP - General Internal Medicine 11/04/13 Supervisor [employer] Relationship Specialty Start Date End Date PatojerryVenturais [address] [place] [address] PCP - General Internal Medicine 11/04/13 Supervisor [employer] Relationship Specialty Start Date End Date PatoBautista edwards [address] [place] [address] PCP - General Internal Medicine 11/04/13 Supervisor [employer] Treatment [employer] Relationship Specialty Start Date End Date RenataBautista Ul[address] [place] [address] PCP - General Internal Medicine 11/04/13 Supervisor [employer] Relationship Specialty Start Date End Date Bautista Manzano [address] [place] [address] PCP - General Internal Medicine 11/04/13 Supervisor [employer] Treatment [employer] Relationship Specialty Start Date End Date Bautista Manzano [address] [place] [address] PCP - General Internal Medicine 11/04/13 Supervisor [employer] Treatment [employer] Relationship Specialty Start Date End Date Bautista Manzanomond [address] [place] [address] PCP - General Internal Medicine 11/04/13 Supervisor [employer] Treatment [employer] Relationship Specialty Start Date End Date Bautista Manzanomond [address] [place] [address] PCP - General Internal Medicine 11/04/13 Supervisor [employer] Treatment [employer] Relationship Specialty Start Date End Date Bautista Manzanomond [address] [place] [address] PCP - General Internal Medicine 11/04/13 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 Bonifacio Bell MD Primary Care Provider Active Team Status: Inactive Member Role Status Dates Dr. Bonifacio Bell MD Primary Care Provider Active Start: August 02, 2024 End: August 02, 2024 Dr. Bonifacio Bell MD Attending Provider Active Start: August 02, 2024 End: August 02, 2024 Dr. Bonifacio Bell MD Referring Provider Active Start: August 02, 2024 End: August 02, 2024 Team Status: Inactive Member Role Status Dates Dr. Bonifacio Bell MD Primary Care Provider Active Start: October 15, 2024 End: October 15, 2024 Dr. Bonifacio Bell MD Referring Provider Active Start: October 15, 2024 End: October 15, 2024 Hubert PALMA PA Attending Provider Active Sta rt: October 15, 2024 End: October 15, 2024 Team Status: Inactive Member Role Status Dates Dr. Bonifacio Bell MD Primary Care Provider Active Start: November 15, 2024 End: November 15, 2024 Dr. Bonifacio Bell MD Referring Provider Active Start: November 15, 2024 End: November 15, 2024 Jeremiah PALMA PA Attending Provider Active Start: November 15, 2024 End: November 15, 2024 Team Status: Inactive Member Role Status Dates Dr. Bonifacio Bell MD Primary Care Provider Active Start: November 28, 2024 End: November 28, 2024 Facundo Garcia MD Emergency Provider Active Star t: November 28, 2024 End: November 28, 2024 Team Status: Inactive Member Role Status Dates Dr. Bonifacio Bell MD Primary Care Provider Active Start: November 28, 2024 End: November 28, 2024 Facundo Garcia MD Attending Provider Active Star t: November 28, 2024 End: November 28, 2024 Facundo Garcia MD Emergency Provider Active Star t: November 28, 2024 End: November 28, 2024 Team Status: Inactive Member Role Status Dates Dr. Bonifacio Bell MD Primary Care Provider Active Start: December 10, 2024 End: December 10, 2024 Dr. Bonifacio Bell MD Referring Provider Active Start: December 10, 2024 End: December 10, 2024 Sid PALMA PA Attending Provider Active St art: December 10, 2024 End: December 10, 2024 Team Status: Inactive Member Role Status Dates Dr. Bonifacio Bell MD Primary Care Provider Active Start: December 10, 2024 End: December 10, 2024 MINERVA Mccullough Attending Provider Active St art: December 10, 2024 End: December 10, 2024 MINERVA Mccullough Referring Provider Active St art: December 10, 2024 End: December 10, 2024 Team Status: Inactive Member Role Status Dates Dr. Bonifacio Bell MD Primary Care Provider Active Start: January 19, 2025 End: January 19, 2025 Dr. Bonifacio Bell MD Referring Provider Active Start: January 19, 2025 End: January 19, 2025 Tracy Santizo CANAL EQUIPMENT MAINTENANCE SUPERVISOR, CANAL EQUIPMENT MAINTENANCE SUPERVISOR-C Attending Provider Active Start: January 19, 2025 End: January 19, 2025 Supervisor [employer] Relationship Specialty Start Date End Date Bonifacio Bell MD [address] [place] [address] PCP - General Internal Medicine 01/20/25 Team Status: Inactive Member Role Status Dates Dr. Bonifacio Bell MD Primary Care Provider Active Start: February 10, 2025 End: February 10, 2025 Dr. Bonifacio Bell MD Referring Provider Active Start: February 10, 2025 End: February 10, 2025 MINERVA Mccullough Attending Provider Active St art: February 10, 2025 End: February 10, 2025 FOR RECORDS PERTAINING TO PATIENTS WHO ARE OR HAVE BEEN ENROLLED IN A CHEMICAL DEPENDENCY/SUBSTANCEABUSE PROGRAM, SOME INFORMATION MAY BE OMITTED. This clinical summary was aggregated from multiple sources. Caution should be exercised in using it in the provision of clinical care. This summary normalizes information from multiple sources, and as a consequence, information in this document may materially change the coding, format and clinical context of patient data. In addition, data may be omitted in some cases. CLINICAL DECISIONS SHOULD BE BASED ON THE PRIMARY CLINICAL RECORDS. [employer] [facility]. provides no warranty or guarantee of the accuracy or completeness of information in this document.
--- NOTE | 2025-02-12 09:45 | RAD_ITS ---
PROCEDURE: LUMBAR SPINE 2 OR 3 VIEWS 02/12/2025 REASON FOR EXAM: PAIN TECHNIQUE: LUMBAR SPINE 2 OR 3 VIEWS COMPARISON: None. FINDINGS: Vertebrae: Normal height Discs: Normal disc height Alignment: Normal AP lordosis Other: RAD/Lumbar Spine 2 or 3 Views IMPRESSION: No acute process. Reading [facility]
== END | disposition home or self-care (01) ==
PROVIDERS: PCP Internal Medicine; Referring Provider Physician Assistant; Visit Provider Physician Assistant
DX: M54.50 Low back pain, unspecified (principal); G89.29 Other chronic pain
CPT/HCPCS: 72100

== ENCOUNTER 2025-03-08 16:30 | Outpatient (RCR) | payer OTHER, SELFPAY ==
--- NOTE | 2025-02-27 22:56 | HP.PTEVAL_ITS ---
Patient's Visit Information Visit Information Visit Information: HOLDEN CHILDERS is a 55 year old F referred to Physical Therapy by MINERVA Hanson with a diagnosis of LOW BACK CHRONIC PAIN. Date of Evaluation: 02/21/25 Physical Therapist: Nicole Webster, PT, Cert MDT Visit Plan Frequency: 2-3x /Week Duration: 4-6 Weeks Plan: *Stretching to HEP *UE/CORE *STEPS AQUATIC THERAPY FOR L BACK AND LE PAIN RELIEF, POSTURE CORRECTION/STRENGTHENING, INSTRUCTION IN APPROPRIATE BODY MECHANICS AND ACTIVITY MODIFICATIONS. DLS STARTING WITH A NEUTRAL SPINE PROGRESSING ROM TOLERATED. ELO LE ROM, ST RETCHING AND STRENGTHENING. HEP INSTRUCTION. 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 Present since: ABOUT A MONTH AGO. Pain Scale: WORST 7/10, LEAST 1/10 Currently: 4/10 Is it getting better, worse or staying the same: STAYING THE SAME Commenced as a result of: NO APPARENT REASON Symptoms at onset: MORE L HIP THAN BACK PAIN AND THIGH NUMBNESS TO THE KNEES WITH SOME DULL PAIN IN THE THIGH TOO. Worse: PROLONGED STANDING, BENDING DURING THE DAY, MORNING, SOME PAIN SITTING, BENDING IN THE MORNINGS, EX'S FROM [facility] STAT C[facility], WATCHING TV IN BED Better: ICE AND HEAT, NAPROXEN, TYLONOL Disturbed sleep: YES Previous history/Previous treatment: A COUPLE YEARS AGO HAD THE SAME KIND OF PAIN AND IT WENT DOWN THE L LEG - WENT TO ED AND HAD STEROID. Occasional BACK STIFFNESS. NO H/O CHIROPRACTIC FOR LOW BACK. NO LUMBAR SX, INJECTIONS OR PT. Treatment this episode: STAT CARE, [facility] MINERVA FRANCO[facility], PT REFERRAL, OTC ANTI-INFLAMMATORIES, NIGHTLY M. RELAXERS FOR FIBROMYALGIA, [facility] REFERRAL PENDING NEXT WEEK WITH PA WED 03/02/25. Coughing/sneezing/straining: NEGATIVE FOR INCREASED PAIN. Gait: NORMAL PER PATIENT Bowel or Bladder Dysfunction: NO Accidents: NO Unexplained weight loss: NO Imaging: RECENT LUMBAR X-RAYS WERE NORMAL PER PATIENT REPORT. PMH/Recent major surgery: FIBROMYALGIA, ANXIETY, ACID REFLUX, HEART ATTACK OCTOBER 2023 WITH STENT PLACEMENT. HTN. ARTIFIAL JT R GREAT TOE, HYSTERECTOMY 2009. Objective Objective: Sitting/Standing Posture: SWAY BACK. NO RELEVANT LATERAL LUMBAR SHIFT. Other Observations: INDEP GAIT AND TRANSFERS. Sensory deficit: ELO LE LIGHT TOUCH SENSATION GROSSLY INTACT AND SYMMETRICAL. ROM deficit: ELO LE HS TIGHTNESS R>L AND ELO CALF TIGHTNESS L>R. ELO HIP IR TIGHTNESS. Motor deficit: ELO LE'S GROSSLY 5/5 WITH MMT'ING EXCEPT HIPS 4/5 ESPECIALLY HIP ABD AND ROTATION. Dural Signs: NEGATIVE ELO LE'S. Lumbar mvmt loss: flex - MIN - INCREASES L BACK - W ext - MOD - NE R SG -MOD - NE L SG - INCREASES L BACK - W Core strength: FAIR Palpation: INCREASED MUSCLE TONE L PARASPINALS COMPARED TO R. NO ACUTE LOWER THORACIC OR LUMBAR TENDERNESS. TREATMENT: NEUROMUSCULAR REEDUCATION - RETRAINING OF MVMT AND POSTURE FOR SITTING, LYING AND STANDING ACTIVITIES. Balance/Special Test Scores Oswestry Low Back Score: 20 Goals Goal 1:: DECREASE C/O BACK PAIN BY AT LEAST 50% TO EASE ADL'S Goal Time Frame: 4-6 Weeks Goal 2:: IMPROVE LIFTING, WALKING, SITTING, STANDING, SLEEP, SOCIAL LIFE, TRAVEL AND EMPLOYMENT/HOMEMAKING FUNCTION WITH AT LEAST 8 POINT BACK OSWESTRY SCORE IMPROVEMENT Goal Time Frame: 4-6 Weeks Goal 3:: INSTRUCT IN PROPHYLAXIS Goal Time Frame: 4-6 Weeks Rehabilitation Potential Physical Therapy Diagnosis: CORE AND LE STIFFNESS AND WEAKNESS WITH C/O BACK PAIN LIMITING ADL'S. Rehabilitation Potential: Good Anticipated Interventions Patient/Client Instruction: Educate patient on: Condition, Plan of Care and Risk Factors For the Purpose of:: To improve self management Therapeutic Exercise to Include: Strength training, Body mechanics, Postural training, Flexibilty training, Neuromotor development, Relaxation training, In an aquatic setting and Dynamic Lumbar Stabilization For the Purpose of:: To decrease pain, To improve muscle performance and motor function, To increase tolerance to activity/condition/position, To improve ability of physical actions for home/community/work/leisure, To increase flexibility/ROM and To improve self management Text: Thank you for the opportunity to evaluate your patient. For Medicare and Medicare HMO plans, please review the plan of care and approve it. It will need to be FAXED BACK to us at [phone] for Medicare purposes. For Medicare only, by signing this I certify the plan of care. Please let me know if there are questions or concerns regarding this plan of care. Physician Signature: Date:
== END 2025-03-08 19:00 | disposition home or self-care (01) ==
LOC: PT 16:30
PROVIDERS: PCP Internal Medicine; Referring Provider Physician Assistant; Visit Provider Physician Assistant
DX: M54.50 Low back pain, unspecified (principal); G89.29 Other chronic pain
CPT/HCPCS: 97112; 97113; 97162

== ENCOUNTER → 2025-05-11 | Outpatient (CLI) | payer OTHER, SELFPAY | END | disposition home or self-care (01) | LOC: LABSPEC 15:11 | PROVIDERS: PCP Internal Medicine; Visit Provider Physician Assistant | DX: R82.90 Unspecified abnormal findings in urine (principal) | CPT/HCPCS: 87070; 87075; 87077; 87086; 87088; 87205 ==

== ENCOUNTER → 2025-07-06 | Outpatient (CLI) | payer OTHER, SELFPAY ==
--- NOTE | 2025-07-06 16:18 | MRI_ITS ---
PROCEDURE: SPINE LUMBAR (ROUTINE) 07/06/2025 REASON FOR EXAM: OTHER INTERVERTEBRAL DISC DEGENERATION TECHNIQUE: Procedure Code: MRISPL Modality: MR Procedure: SPINE LUMBAR (ROUTINE) COMPARISON: Radiograph from February 12, 2025 FINDINGS: Bone marrow signal is grossly unremarkable aside from a likely bone island in L5. There may be a hemangioma or similar benign process posterior to this and L5 as well. The conus is noted posterior to L1. The paravertebral soft tissues are grossly unremarkable. L1-2: Unremarkable L2-3: Minimal concentric disc bulge without significant stenosis. L3-4: Unremarkable L4-5: Concentric disc bulge most pronounced in the right foraminal and extraforaminal zones which may contact the exiting nerve root. Moderate AP canal diameter narrowing to just under 8 mm. L5-S1: There is a concentric disc bulge which may contact the exiting nerve root on the right but does not compress it. No central canal stenosis. Sacrum: The visualized sacrum is unremarkable. MRI/Spine Lumbar (Routine) IMPRESSION: Multilevel degenerative disc disease with moderate stenosis at L4-L5. Please s ee above for details by level. Reading Location: [facility]
== END | disposition home or self-care (01) ==
LOC: MRI 16:16
PROVIDERS: PCP Internal Medicine; Referring Provider Anesthesiology Pain Medicine; Visit Provider Anesthesiology Pain Medicine
DX: M51.372 Other intervertebral disc degeneration, lumbosacral region with discogenic back pain and lower extremity pain (principal)
CPT/HCPCS: 72148

== ENCOUNTER → 2025-08-08 | Outpatient (CLI) | payer OTHER, SELFPAY ==
--- NOTE | 2025-08-08 16:00 | BI_ITS ---
EXAM: SCRN MAMM (CAD)W/CARLOS BILAT DATE: 08/08/2025 CLINICAL HISTORY: F, Age 55 y/o , SCREENING FOR BREAST CANCER No family history. TECHNIQUE: Procedure Code: [id number] Modality: MG Procedure: SCRN MAMM (CAD)W/CARLOS BILAT COMPARISON: Prior exam(s) dated outside examination dated July 12, 2023.. FINDINGS: TISSUE DENSITY: The breasts are extremely dense, which lowers the sensitivity of mammography. Bilateral Breast Mammographic Findings: No significant masses, calcifications or other abnormalities are identified. Stable small benign-appearing bilateral axillary lymph nodes. No suspicious masses, areas of developing architectural distortion, or suspicious calcifications. There has been no significant interval change. BI/SCRN MAMM (CAD)W/CARLOS BILAT IMPRESSION: Stable bilateral screening mammogram. OVERALL FINAL ASSESSMENT BI-RADS 2: BENIGN RECOMMENDATION: Routine annual follow-up in 1 Year Additional Recommendation none A letter with findings and recommendations will be mailed to the patient. Reading Location: [facility]
== END | disposition home or self-care (01) ==
LOC: OPBI 15:53
PROVIDERS: PCP Internal Medicine; Referring Provider Nurse Practitioner Women's Health; Visit Provider Nurse Practitioner Women's Health
DX: Z12.31 Encounter for screening mammogram for malignant neoplasm of breast (principal)
CPT/HCPCS: 77063; 77067